=== PATIENT | female | born 1960 | race Caucasian/White ===

== ENCOUNTER → 2019-12-31 08:08 | Outpatient (BNVA) | payer MEDICARE, SELFPAY | PROVIDERS: Family Provider Family Medicine; PCP Family Medicine; Visit Provider Specialist | DX: G43.711 Chronic migraine without aura, intractable, with status migrainosus (principal); F32.9 Major depressive disorder, single episode, unspecified; I95.1 Orthostatic hypotension | CPT/HCPCS: 64615; J0585 ==

== ENCOUNTER → 2020-02-01 08:04 | Outpatient (BNVA) | payer MEDICARE, MEDICAID, SELFPAY | PROVIDERS: Family Provider Family Medicine; PCP Family Medicine; Visit Provider Psychiatry & Neurology Psychiatry | DX: F60.3 Borderline personality disorder (principal); F41.1 Generalized anxiety disorder; F43.12 Post-traumatic stress disorder, chronic; F33.42 Major depressive disorder, recurrent, in full remission; G31.84 Mild cognitive impairment of uncertain or unknown etiology | CPT/HCPCS: 99213 ==

== ENCOUNTER → 2020-02-16 08:19 | Outpatient (BNVA) | payer MEDICARE, SELFPAY | PROVIDERS: Family Provider Family Medicine; PCP Family Medicine; Visit Provider Anesthesiology | DX: M54.16 Radiculopathy, lumbar region (principal); M51.36 Other intervertebral disc degeneration, lumbar region; Z79.891 Long term (current) use of opiate analgesic | CPT/HCPCS: 99213; 99214 ==

== ENCOUNTER → 2020-03-31 09:08 | Outpatient (BNVA) | payer MEDICARE, SELFPAY | PROVIDERS: Family Provider Family Medicine; PCP Family Medicine; Visit Provider Specialist | DX: G43.711 Chronic migraine without aura, intractable, with status migrainosus (principal); F43.12 Post-traumatic stress disorder, chronic | CPT/HCPCS: 64615; J0585 ==

== ENCOUNTER → 2020-05-02 07:33 | Outpatient (BNVA) | payer MEDICARE, SELFPAY | PROVIDERS: Family Provider Family Medicine; PCP Family Medicine; Visit Provider Psychiatry & Neurology Psychiatry | DX: F60.3 Borderline personality disorder (principal); F41.1 Generalized anxiety disorder; F43.12 Post-traumatic stress disorder, chronic; G31.84 Mild cognitive impairment of uncertain or unknown etiology | CPT/HCPCS: 99213 ==

== ENCOUNTER → 2020-05-19 07:51 | Outpatient (BNVA) | payer MEDICARE, SELFPAY | PROVIDERS: Family Provider Family Medicine; PCP Family Medicine; Visit Provider Anesthesiology | DX: M51.36 Other intervertebral disc degeneration, lumbar region (principal); M54.16 Radiculopathy, lumbar region; M54.9 Dorsalgia, unspecified; Z79.891 Long term (current) use of opiate analgesic | CPT/HCPCS: 62323; J1040; J2001; J3490 ==

== ENCOUNTER → 2020-06-15 09:11 | Outpatient (BNVA) | payer MEDICARE, SELFPAY | PROVIDERS: Family Provider Family Medicine; PCP Family Medicine; Visit Provider Nurse Practitioner | DX: M51.36 Other intervertebral disc degeneration, lumbar region (principal); M54.16 Radiculopathy, lumbar region; M54.5 Low back pain; Z79.891 Long term (current) use of opiate analgesic | CPT/HCPCS: 99213 ==

== ENCOUNTER → 2020-06-23 08:51 | Outpatient (BNVA) | payer MEDICARE, SELFPAY | PROVIDERS: Family Provider Family Medicine; PCP Family Medicine; Visit Provider Specialist | DX: G43.711 Chronic migraine without aura, intractable, with status migrainosus (principal) | CPT/HCPCS: 64615; J0585 ==

== ENCOUNTER → 2020-07-21 08:43 | Outpatient (BNVA) | payer OTHER, SELFPAY | PROVIDERS: Family Provider Family Medicine; PCP Family Medicine; Visit Provider Psychiatry & Neurology Psychiatry | DX: F41.1 Generalized anxiety disorder (principal) | CPT/HCPCS: 80061; 83036 ==

== ENCOUNTER → 2020-08-01 07:39 | Outpatient (BNVA) | payer MEDICARE, MEDICAID, SELFPAY ==
[2020-07-25 09:50] VITALS: BP 101/66; BMI 32.7
== END ==
PROVIDERS: Family Provider Family Medicine; PCP Family Medicine; Visit Provider Psychiatry & Neurology Psychiatry
DX: F33.42 Major depressive disorder, recurrent, in full remission (principal); F43.12 Post-traumatic stress disorder, chronic; F41.1 Generalized anxiety disorder; F60.3 Borderline personality disorder
CPT/HCPCS: 99214

== ENCOUNTER → 2020-08-12 09:23 | Outpatient (BNVA) | payer MEDICARE, SELFPAY ==
[2020-07-25 09:50] VITALS: BP 101/66; BMI 32.7
== END ==
PROVIDERS: Family Provider Family Medicine; PCP Family Medicine; Visit Provider Nurse Practitioner
DX: M54.41 Lumbago with sciatica, right side (principal); M51.36 Other intervertebral disc degeneration, lumbar region; M54.16 Radiculopathy, lumbar region; Z79.891 Long term (current) use of opiate analgesic
CPT/HCPCS: 99213; 99214

== ENCOUNTER → 2020-08-25 10:22 | Outpatient (BNVA) | payer MEDICARE, SELFPAY ==
[2020-07-25 09:50] VITALS: BP 101/66; BMI 32.7
== END ==
PROVIDERS: Family Provider Family Medicine; PCP Family Medicine; Visit Provider Anesthesiology
DX: G89.29 Other chronic pain (principal); M51.36 Other intervertebral disc degeneration, lumbar region; M54.16 Radiculopathy, lumbar region; M54.9 Dorsalgia, unspecified
CPT/HCPCS: 62323; J1040; J3490

== ENCOUNTER → 2020-08-29 07:42 | Outpatient (BNVA) | payer MEDICARE, SELFPAY ==
[2020-07-25 09:50] VITALS: BP 101/66; BMI 32.7
== END ==
PROVIDERS: Family Provider Family Medicine; PCP Family Medicine; Visit Provider Psychiatry & Neurology Psychiatry
DX: F33.42 Major depressive disorder, recurrent, in full remission (principal); F43.12 Post-traumatic stress disorder, chronic; F41.1 Generalized anxiety disorder; F60.3 Borderline personality disorder; G31.84 Mild cognitive impairment of uncertain or unknown etiology
CPT/HCPCS: 99213

== ENCOUNTER → 2020-10-06 08:45 | Outpatient (BNVA) | payer MEDICARE, SELFPAY ==
[2020-07-25 09:50] VITALS: BP 101/66; BMI 32.7
== END ==
PROVIDERS: Family Provider Family Medicine; PCP Family Medicine; Visit Provider Anesthesiology
DX: M51.36 Other intervertebral disc degeneration, lumbar region (principal); M54.16 Radiculopathy, lumbar region; M54.9 Dorsalgia, unspecified; Z79.891 Long term (current) use of opiate analgesic
CPT/HCPCS: 99212; 99214

== ENCOUNTER → 2020-11-10 08:09 | Outpatient (BNVA) | payer MEDICARE, SELFPAY ==
[2020-07-25 09:50] VITALS: BP 101/66; BMI 32.7
== END ==
PROVIDERS: Family Provider Family Medicine; PCP Family Medicine; Visit Provider Specialist
DX: G43.711 Chronic migraine without aura, intractable, with status migrainosus (principal)
CPT/HCPCS: 64615; J0585

== ENCOUNTER → 2020-11-23 07:28 | Outpatient (BNVA) | payer MEDICARE, SELFPAY ==
[2020-07-25 09:50] VITALS: BP 101/66; BMI 32.7
== END ==
PROVIDERS: Family Provider Family Medicine; PCP Family Medicine; Visit Provider Psychiatry & Neurology Psychiatry
DX: F33.42 Major depressive disorder, recurrent, in full remission (principal); F43.12 Post-traumatic stress disorder, chronic; F41.1 Generalized anxiety disorder; F60.3 Borderline personality disorder; G31.84 Mild cognitive impairment of uncertain or unknown etiology
CPT/HCPCS: 99213

== ENCOUNTER → 2020-12-09 08:22 | Outpatient (BNVA) | payer MEDICARE, SELFPAY ==
[2020-07-25 09:50] VITALS: BP 101/66; BMI 32.7
== END ==
PROVIDERS: Family Provider Family Medicine; PCP Family Medicine; Visit Provider Nurse Practitioner
DX: M54.16 Radiculopathy, lumbar region (principal); M51.36 Other intervertebral disc degeneration, lumbar region; M54.9 Dorsalgia, unspecified; G43.711 Chronic migraine without aura, intractable, with status migrainosus; Z79.891 Long term (current) use of opiate analgesic; Z79.1 Long term (current) use of non-steroidal anti-inflammatories (NSAID)
CPT/HCPCS: 99215

== ENCOUNTER → 2021-01-05 10:43 | Outpatient (BNVA) | payer MEDICARE, SELFPAY ==
[2020-07-25 09:50] VITALS: BP 101/66; BMI 32.7
== END ==
PROVIDERS: Family Provider Family Medicine; PCP Family Medicine; Visit Provider Anesthesiology
DX: G89.29 Other chronic pain (principal); M51.36 Other intervertebral disc degeneration, lumbar region; M54.16 Radiculopathy, lumbar region; M54.9 Dorsalgia, unspecified; Z79.891 Long term (current) use of opiate analgesic
CPT/HCPCS: 62323; J1040; J3490

== ENCOUNTER → 2021-01-11 07:19 | Outpatient (BNVA) | payer MEDICARE, SELFPAY ==
[2020-07-25 09:50] VITALS: BP 101/66; BMI 32.7
== END ==
PROVIDERS: Family Provider Family Medicine; PCP Family Medicine; Visit Provider Psychiatry & Neurology Psychiatry
DX: F33.42 Major depressive disorder, recurrent, in full remission (principal); F43.12 Post-traumatic stress disorder, chronic; F41.1 Generalized anxiety disorder; F60.3 Borderline personality disorder; G31.84 Mild cognitive impairment of uncertain or unknown etiology
CPT/HCPCS: 99214

== ENCOUNTER → 2021-02-10 10:42 | Outpatient (BNVA) | payer MEDICARE, SELFPAY ==
[2020-07-25 09:50] VITALS: BP 101/66; BMI 32.7
== END ==
PROVIDERS: Family Provider Family Medicine; PCP Family Medicine; Visit Provider Nurse Practitioner
DX: M54.9 Dorsalgia, unspecified (principal); M51.36 Other intervertebral disc degeneration, lumbar region; M54.16 Radiculopathy, lumbar region; G43.711 Chronic migraine without aura, intractable, with status migrainosus; Z79.1 Long term (current) use of non-steroidal anti-inflammatories (NSAID); Z79.891 Long term (current) use of opiate analgesic
CPT/HCPCS: 99213

== ENCOUNTER → 2021-02-16 10:05 | Outpatient (BNVA) | payer MEDICARE, MEDICAID, SELFPAY ==
[2020-07-25 09:50] VITALS: BP 101/66; BMI 32.7
== END ==
PROVIDERS: Family Provider Family Medicine; PCP Family Medicine; Visit Provider Specialist
DX: G43.711 Chronic migraine without aura, intractable, with status migrainosus (principal)
CPT/HCPCS: 64615; J0585

== ENCOUNTER → 2021-03-08 07:20 | Outpatient (BNVA) | payer MEDICARE, SELFPAY ==
[2020-07-25 09:50] VITALS: BP 101/66; BMI 32.7
== END ==
PROVIDERS: Family Provider Family Medicine; PCP Family Medicine; Visit Provider Psychiatry & Neurology Psychiatry
DX: F33.42 Major depressive disorder, recurrent, in full remission (principal); F43.12 Post-traumatic stress disorder, chronic; F41.1 Generalized anxiety disorder; F60.3 Borderline personality disorder; G31.84 Mild cognitive impairment of uncertain or unknown etiology
CPT/HCPCS: 99214

== ENCOUNTER → 2021-04-06 10:29 | Outpatient (BNVA) | payer MEDICARE, SELFPAY ==
[2020-07-25 09:50] VITALS: BP 101/66; BMI 32.7
== END ==
PROVIDERS: Family Provider Family Medicine; PCP Family Medicine; Visit Provider Anesthesiology
DX: M54.16 Radiculopathy, lumbar region (principal); M51.36 Other intervertebral disc degeneration, lumbar region; M54.9 Dorsalgia, unspecified; Z79.891 Long term (current) use of opiate analgesic
CPT/HCPCS: 99213

== ENCOUNTER → 2021-05-11 11:09 | Outpatient (BNVA) | payer MEDICARE, MEDICAID, SELFPAY ==
[2021-04-06 11:20] VITALS: BP 101/66; BMI 32.7
== END ==
PROVIDERS: PCP Family Medicine; Visit Provider Specialist
DX: G43.709 Chronic migraine without aura, not intractable, without status migrainosus (principal)
CPT/HCPCS: 64615; J0585

== ENCOUNTER → 2021-05-26 09:11 | Outpatient (BNVA) | payer MEDICARE, SELFPAY ==
[2021-04-06 11:20] VITALS: BP 101/66; BMI 32.7
== END ==
PROVIDERS: PCP Family Medicine; Visit Provider Psychiatry & Neurology Psychiatry
DX: F33.42 Major depressive disorder, recurrent, in full remission (principal); F43.12 Post-traumatic stress disorder, chronic; F41.1 Generalized anxiety disorder; F60.3 Borderline personality disorder; G31.84 Mild cognitive impairment of uncertain or unknown etiology
CPT/HCPCS: 99214

== ENCOUNTER → 2021-06-13 10:15 | Outpatient (BNVA) | payer MEDICARE, SELFPAY ==
[2021-04-06 11:20] VITALS: BP 101/66; BMI 32.7
== END ==
PROVIDERS: PCP Family Medicine; Visit Provider Nurse Practitioner
DX: M25.532 Pain in left wrist (principal); M51.36 Other intervertebral disc degeneration, lumbar region; M54.16 Radiculopathy, lumbar region; M54.9 Dorsalgia, unspecified; G43.711 Chronic migraine without aura, intractable, with status migrainosus; G31.84 Mild cognitive impairment of uncertain or unknown etiology; Z79.1 Long term (current) use of non-steroidal anti-inflammatories (NSAID); Z79.891 Long term (current) use of opiate analgesic
CPT/HCPCS: 99213

== ENCOUNTER → 2021-06-29 07:39 | Outpatient (BNVA) | payer MEDICARE, SELFPAY ==
[2021-04-06 11:20] VITALS: BP 101/66; BMI 32.7
== END ==
PROVIDERS: PCP Family Medicine; Visit Provider Psychiatry & Neurology Psychiatry
DX: F60.3 Borderline personality disorder (principal); G31.84 Mild cognitive impairment of uncertain or unknown etiology; F41.1 Generalized anxiety disorder; F43.12 Post-traumatic stress disorder, chronic; F33.42 Major depressive disorder, recurrent, in full remission
CPT/HCPCS: 99214

== ENCOUNTER → 2021-07-28 07:22 | Outpatient (BNVA) | payer MEDICARE, SELFPAY ==
[2021-04-06 11:20] VITALS: BP 101/66; BMI 32.7
== END ==
PROVIDERS: PCP Family Medicine; Visit Provider Psychiatry & Neurology Psychiatry
DX: F33.42 Major depressive disorder, recurrent, in full remission (principal); F43.12 Post-traumatic stress disorder, chronic; F41.1 Generalized anxiety disorder; F60.3 Borderline personality disorder; G31.84 Mild cognitive impairment of uncertain or unknown etiology
CPT/HCPCS: 99214

== ENCOUNTER → 2021-08-03 12:07 | Outpatient (BNVA) | payer MEDICARE, MEDICAID, SELFPAY ==
[2021-04-06 11:20] VITALS: BP 101/66; BMI 32.7
== END ==
PROVIDERS: PCP Family Medicine; Visit Provider Specialist
DX: G43.709 Chronic migraine without aura, not intractable, without status migrainosus (principal)
CPT/HCPCS: 64615; J0585

== ENCOUNTER → 2021-08-09 10:17 | Outpatient (BNVA) | payer MEDICARE, SELFPAY ==
[2021-04-06 11:20] VITALS: BP 101/66; BMI 32.7
== END ==
PROVIDERS: PCP Family Medicine; Visit Provider Nurse Practitioner
DX: G89.29 Other chronic pain (principal); M54.16 Radiculopathy, lumbar region; M51.36 Other intervertebral disc degeneration, lumbar region; G43.711 Chronic migraine without aura, intractable, with status migrainosus; Z79.891 Long term (current) use of opiate analgesic
CPT/HCPCS: 99213

== ENCOUNTER → 2021-10-09 08:14 | Outpatient (BNVA) | payer MEDICARE, SELFPAY ==
[2021-04-06 11:20] VITALS: BP 101/66; BMI 32.7
== END ==
PROVIDERS: PCP Family Medicine; Visit Provider Psychiatry & Neurology Psychiatry
DX: F33.42 Major depressive disorder, recurrent, in full remission (principal); F43.12 Post-traumatic stress disorder, chronic; F41.1 Generalized anxiety disorder; F60.3 Borderline personality disorder; G31.84 Mild cognitive impairment of uncertain or unknown etiology
CPT/HCPCS: 99214

== ENCOUNTER → 2021-10-12 10:13 | Outpatient (BNVA) | payer MEDICARE, SELFPAY ==
[2021-04-06 11:20] VITALS: BP 101/66; BMI 32.7
== END ==
PROVIDERS: PCP Family Medicine; Visit Provider Anesthesiology
DX: M51.36 Other intervertebral disc degeneration, lumbar region (principal); M54.16 Radiculopathy, lumbar region; Z79.1 Long term (current) use of non-steroidal anti-inflammatories (NSAID); Z79.891 Long term (current) use of opiate analgesic; Z91.81 History of falling
CPT/HCPCS: 99213

== ENCOUNTER 2021-10-23 15:55 | Outpatient (CLI) | payer MEDICARE, SELFPAY ==
[2021-04-06 11:20] VITALS: BP 101/66; BMI 32.7
--- NOTE | 2021-10-23 16:02 | XR_ITS ---
WS: [id number] SCREENING DEXA SCAN WireOver CLINICAL INFORMATION: OSTEOPOROSIS COMPARISON: 2018 FINDINGS: The L1-L4 bone mineral density measures 0.711 g/cm2. This corresponds to a T score score of -3.9 and Z score of -3.0. Left femoral neck bone mineral density measures 0.586 g/cm2. This corresponds to a T score of -3.3 an d Z score of -2.6. Right femoral neck bone mineral density measures 0.645 g/cm2. This corresponds to a T score -2.9of an d Z score of -2.2. Mean femoral neck bone mineral density measures 0.616 g/cm2. This corresponds to a T score of -3.1 an d Z score of -2.4. XR/XR DEXA axial skeleton* [id number] IMPRESSION: Osteoporosis lumbar spine. Osteoporosis femoral necks. Patient's FRAX calculated 10 year probability for major osteoporotic fracture i s 27.8 % and osteoporotic hip fracture is 9.7%.
== END 2021-10-23 15:56 | disposition home or self-care (01) ==
PROVIDERS: PCP Family Medicine; Visit Provider Physician Assistant
DX: M81.0 Age-related osteoporosis without current pathological fracture (principal)
CPT/HCPCS: 77080

== ENCOUNTER → 2021-12-06 08:22 | Outpatient (BNVA) | payer MEDICARE, MEDICAID, SELFPAY ==
[2021-04-06 11:20] VITALS: BP 101/66; BMI 32.7
== END ==
PROVIDERS: PCP Family Medicine; Visit Provider Social Worker
DX: F43.12 Post-traumatic stress disorder, chronic (principal); Z63.4 Disappearance and death of family member
CPT/HCPCS: 90834

== ENCOUNTER → 2021-12-07 10:10 | Outpatient (BNVA) | payer MEDICARE, MEDICAID, SELFPAY ==
[2021-04-06 11:20] VITALS: BP 101/66; BMI 32.7
== END ==
PROVIDERS: PCP Family Medicine; Visit Provider Specialist
DX: G43.711 Chronic migraine without aura, intractable, with status migrainosus (principal)
CPT/HCPCS: 64615; J0585

== ENCOUNTER → 2021-12-13 09:24 | Outpatient (BNVA) | payer MEDICARE, SELFPAY ==
[2021-04-06 11:20] VITALS: BP 101/66; BMI 32.7
== END ==
PROVIDERS: PCP Family Medicine; Visit Provider Anesthesiology
DX: M54.16 Radiculopathy, lumbar region (principal); M51.36 Other intervertebral disc degeneration, lumbar region; Z79.891 Long term (current) use of opiate analgesic
CPT/HCPCS: 99213

== ENCOUNTER 2021-12-22 07:33 | Outpatient (CLI) | payer MEDICARE, MEDICAID, SELFPAY ==
[2021-04-06 11:20] VITALS: BP 101/66; BMI 32.7
[2021-12-22 07:59] VITALS: BMI 29.8
--- NOTE | 2021-12-22 07:59 | ECG_ITS ---
[facility] Test Date: 2021-12-22 Pat Name: Stefany Bassett Department: Room: Gender: Female Educational Coordinator: Veronica Rankin : 1960 Requested By: Laxmi Pack Order Number: [id number] Abdoul MD: Laxmi Pack M.D. Interpretive Statements NAME OF STUDY: LEXISCAN SESTAMIBI STRESS TEST INDICATION: Near syncope, NSVT PROCEDURE: At the baseline, the blood pressure was 105/78 mmHg, oxygen saturation 98% with a heart rate of 88 bpm. The electrocardiogram showed normal sinus rhythm, normal axis with poor anterior R wave progression. Low QRS voltage in precordial leads. The Lexiscan was infused over a period of 20 seconds. A total of 0.4 milligrams of Lexiscan was infused. The stress phase was continued for a total of 5 minutes. Heart rate at the end of the stress phase was 92 bpm, oxygen saturation 97% with a blood pressure 109/80 mmHg. The EKG at the peak infusion revealed sinus rhythm with no significant ST-T wave changes. Sestamibi was injected 20 seconds after the Lexiscan infusion. Blood pressure at the end of the recovery phase was 109/79 mmHg, oxygen saturation 98% with a heart rate of 94 beats per minute. CONCLUSION: 1. No significant EKG changes with the LexiScan infusion. 2. No LexiScan induced chest pain or cardiac arrhythmia. 3. Normal blood pressure and heart rate response. 4. Sestamibi/sestamibi perfusion scan pending; see separate report. Electronically Signed On 12-25-2021 18:54:32 WATER INSPECTOR by Laxmi Pack M.D. [id number]
--- NOTE | 2021-12-22 08:00 | NMCV_ITS ---
NM jevon perf SPECT r/s* [id number] Stefany Bassett Age: 61 Gender: F : 1960 Exam Date: 12/22/2021 08:49 Ordering Phys: Laxmi Pack MD ([email or web address]) Technologist: LANETTE Covington Exam Location: [facility] Indications: CHEST PAIN STRESS TEST Please see separate stress test report in [facility] for full findings IMAGE PROTOCOL Rest/Stress 1 Lexiscan Day Radiopharmaceutical Dose (mCi) Administration Site Administered by Rest: Tc-99m 10.7 IV LANETTE Victoria Sestamibi Stress:Tc-99m 32.6 IV LANETTE Victoria Sestamibi Rest: 22-Dec-2021 60 Discovery 630 Stress: 22-Dec-2021 30 Discovery 630 0.4mg Lexiscan. Images obtained in supine and prone position. SPECT RESULTS Technical Quality: Excellent Raw Data Analysis: Normal Image Corrections: No attenuation or motion correction applied Summed Stress Score: 0 Summed Rest Score: 0 Summed Difference Score: 0 PERFUSION FINDINGS SPECT images demonstrate homogeneous tracer distribution throughout the myocardium. FUNCTIONAL RESULTS (calculated via Gated SPECT) Stress Image LV EF (%): 78 Stress EDV (mL):88 TID: 1.19 Stress ESV (mL):19 FUNCTIONAL FINDINGS: The left ventricle is normal in size. Transient Ischemia Dilatation of 1.2. There is normal left ventricular systolic function. The left ventricular ejection fraction is normal with a value of 78%. There is normal left ventricular wall thickening with no regional wall motion abnormality. Normal end-diastolic end-systolic volumes. IMPRESSIONS 1. Myocardial perfusion imaging is normal. 2. Overall left ventricular systolic function is normal without regional wall motion abnormalities. 3. The left ventricular ejection fraction is normal with a value of 78%. 4. Transient ischemic dilation index of 1.2. This may represent hypertensive response/subendocardial ischemia. Clinical correlation is advised. 5. No significant EKG changes with Lexiscan infusion.. Refer to separate report for details. Laxmi Pack MD (Electronically Signed) Final Date: 25 December 2021 18:57 S
[2021-12-22 09:57] VITALS: BP 109/79; PULSE 93
[2021-12-22] MEDS: regadenoson 0.4 Mg/5 ml Syringe IVP (09:58)
== END 2021-12-22 07:34 | disposition home or self-care (01) ==
LOC: RAD 07:41 → CDL 07:47
PROVIDERS: PCP Family Medicine; Visit Provider Internal Medicine Cardiovascular Disease
DX: R55 Syncope and collapse (principal); R07.9 Chest pain, unspecified
CPT/HCPCS: 78452; 93017; A9500; J2785

== ENCOUNTER → 2021-12-26 10:45 | Outpatient (BNVA) | payer MEDICARE, MEDICAID, SELFPAY ==
[2021-04-06 11:20] VITALS: BP 101/66; BMI 32.7
== END ==
PROVIDERS: PCP Family Medicine; Visit Provider Social Worker
DX: F43.12 Post-traumatic stress disorder, chronic (principal); Z63.4 Disappearance and death of family member
CPT/HCPCS: 90837; 90834

== ENCOUNTER → 2022-01-12 07:48 | Outpatient (BNVA) | payer MEDICARE, MEDICAID, SELFPAY ==
[2021-04-06 11:20] VITALS: BP 101/66; BMI 32.7
== END ==
PROVIDERS: PCP Family Medicine; Visit Provider Psychiatry & Neurology Psychiatry
DX: F33.42 Major depressive disorder, recurrent, in full remission (principal); F43.12 Post-traumatic stress disorder, chronic; G31.84 Mild cognitive impairment of uncertain or unknown etiology; F60.3 Borderline personality disorder; F41.1 Generalized anxiety disorder
CPT/HCPCS: 99214

== ENCOUNTER 2022-02-08 08:15 | Emergency (ER) | payer MEDICARE, MEDICAID, SELFPAY ==
[2021-04-06 11:20] VITALS: BP 101/66; BMI 32.7
[2022-02-08 08:26] VITALS: BP 120/89; PULSE 84; RESP 18; TEMP 36.3; O2SAT 95; BMI 27.8
--- NOTE | 2022-02-08 08:37 | W.ED.SOB ---
HPI - SOB/Dyspnea General: Chief Complaint: Shortness of Breath/Dyspnea Stated Complaint: SOB Time Seen by Provider: 02/08/22 08:27 Source: patient Mode of arrival: ambulatory Limitations: no limitations History of Present Illness: HPI Narrative: 61-year-old female presents to the emergency room with complaint of shortness of breath with ambulation. She denies any chest pain she does get significantly short of breath with exertion. She states she is also fallen the last couple of days she did not hurt anything when she fell. No nausea or vomiting no fever sweats or chills no productive cough. She has had this problem ongoing and her notes from cardiology and they have her on midirone. Admit adjustments for medications in the past is a longstanding issue. MD elicited complaint: shortness of breath and cough Onset (ago): hour(s) Timing: constant Exacerbating factors: exertion Relieving factors: rest Associated symptoms: Deny abdominal pain, chest congestion, chest pain, cough, diaphoresis, dizziness, extremity pain, fever(s), hemoptysis, lightheadedness, myalgias, nausea, orthopnea, palpitations, paresthesias, polydipsia, polyuria, rash, sense of impending doom, syncope or vomiting Treatment prior to arrival: none Review of Systems Const: Denies: fever(s) or diaphoresis Card: Denies: chest pain, palpitations, lightheadedness, syncope or orthopnea Resp: Reports: dyspnea; Denies: hemoptysis or chest congestion GI: Denies: abdominal pain, nausea or vomiting Musc: Denies: extremity pain Neuro: Reports: frequent falls; Denies: dizziness Endo: Denies: polyuria or polydipsia PFS ED PFSH: Medical History Acute lumbar radiculopathy Borderline personality disorder Chronic lumbar radiculopathy Chronic migraine without aura, intractable, with status migrainosus DDD (degenerative disc disease), lumbar Encounter for long-term (current) use of NSAIDs Encounter for long-term opiate analgesic use Generalized anxiety disorder Major depression, recurrent, full remission Minor neurocognitive disorder Post-traumatic stress disorder, chronic Psychiatric care Surgical History History of 2 sections History of carpal tunnel surgery of left wrist Hx of appendectomy Hx of bilateral salpingectomy Hx of cholecystectomy Hx of colectomy bowel obstruction 11/2012 Hx of gastric bypass Hx of hernia repair Hx of hysterectomy Hx of knee surgery Right Hx of shoulder surgery Left Hx of tubal ligation Family History Other CAD (coronary artery disease) Cancer Diabetes Hyperlipidemia Hypertension Stroke Social History Smoking and tobacco status: never smoked Second hand smoke exposure: No Alcohol intake: never History of recent travel: No Current gender identity: Female Physical Exam Const: COMMON NORMALS: average body habitus, patient oriented x3 and alert GENERAL APPEARANCE: cooperative, comfortable, well kempt and well developed NUTRITIONAL APPEARANCE: obese ORIENTATION/CONSCIOUSNESS: Yes awake, Yes oriented to person and Yes oriented to place HENMT: COMMON NORMALS: normocephalic and atraumatic HEAD & SCALP: normocephalic and atraumatic MOUTH: Normal oral and palatal mucosa present, lip normal and tongue normal THROAT: posterior oropharynx normal and tonsils normal Eye: COMMON NORMALS: Equal, round and reactive pupils present, EOMs intact bilaterally, conjunctivae normal and no scleral icterus CONJUNCTIVA: Yes conjunctivae normal PUPIL: Yes Equal, round and reactive pupils present Neck/C-Spine: COMMON NORMALS: full ROM, no lymphadenopathy, supple, no meningeal signs and Thyroid normal THYROID: Thyroid normal and asymmetrical Resp: COMMON NORMALS: normal respiratory effort, No retractions, No use of accessory muscles and clear to auscultation bilaterally AUSCULTATION: clear to auscultation bilaterally Cardio: COMMON NORMALS: regular rate and regular rhythm RATE: regular rate RHYTHM: regular rhythm HEART SOUNDS: no murmurs GI: COMMON NORMALS: Normal to inspection, nondistended, normoactive bowel sounds present, Soft to palpation and No hepatosplenomegaly present PALPATION: Yes Soft to palpation and Yes No hepatosplenomegaly present : COMMON NORMALS: Yes no CVA tenderness BLADDER/KIDNEY EXAM: Yes no CVA tenderness Back/Pelvis: COMMON NORMALS: no CVA tenderness LUMBAR SPINE/LOWER BACK: Yes normal to inspection Extremity: COMMON NORMALS: no clubbing, cyanosis or edema, no calf tenderness and no pedal edema Neuro: COMMON NORMALS: patient oriented x3 SENSORIUM/ORIENTATION: Yes alert, Yes oriented to person and Yes oriented to place MENINGEAL SIGNS: Yes no meningeal signs Psych: APPEARANCE: Yes well kempt Skin: COMMON NORMALS: no rashes or lesions noted and turgor normal GENERAL SKIN EXAM: no rashes or lesions noted and turgor normal Course Vital Signs: Vital signs: Vital Signs Temperature 97.4 F L 02/08/22 08:26 Pulse Rate 76 02/08/22 13:42 Respiratory Rate 16 02/08/22 11:13 Blood Pressure 105/63 02/08/22 13:42 Pulse Oximetry 94 02/08/22 13:42 MDM - SOB/Dyspnea Medical Decision Making Potassium supplement given we will augment her oral potassium for the next few days. Medications reviewed. Asked her to increase her potassium to twice daily for the next 3 days recheck a potassium with her primary care doctor. Follow-up with cardiology for further evaluation. This is been a longstanding issue no indication that hospitalization would significantly improve her symptoms. Medical Records I reviewed the patient's medical records. Lab Data I reviewed the patient's lab results. : 02/08/22 09:55 02/08/22 09:55 Labs/Radiology: Radiology Impressions Chest X-Ray 02/08/22 08:40 IMPRESSION: Stable chest. No acute cardiopulmonary disease. Laboratory Results WBC 6.7 10^3/uL (4.0-10.0) 02/08/22 09:55 RBC 4.26 10^6/uL (4.1-5.3) 02/08/22 09:55 Hgb 14.2 g/dL (11.5-15.3) 02/08/22 09:55 Hct 42.1 % (37.0-47.0) 02/08/22 09:55 MCV 98.8 fl (81-99) 02/08/22 09:55 MCH 33.3 pg (28.0-34.0) 02/08/22 09:55 MCHC 33.7 g/dL (30.0-36.0) 02/08/22 09:55 RDW 13.7 % (12.1-15.1) 02/08/22 09:55 Plt Count 283 10^3/cmm (130-400) 02/08/22 09:55 MPV 10.6 fL (7.4-10.4) H 02/08/22 09:55 Neut % (Auto) 64.7 % 02/08/22 09:55 Lymph % (Auto) 24.9 % 02/08/22 09:55 Carroll % (Auto) 9.1 % 02/08/22 09:55 Eos % (Auto) 0.6 % 02/08/22 09:55 Baso % (Auto) 0.4 % 02/08/22 09:55 Neut # (Auto) 4.33 10^3/uL (1.8-7.7) 02/08/22 09:55 Lymph # (Auto) 1.7 10^3/uL (0.8-4.8) 02/08/22 09:55 Carroll # (Auto) 0.6 10^3/uL (0.2-0.9) 02/08/22 09:55 Eos # (Auto) 0.0 10^3/uL (0.0-0.8) 02/08/22 09:55 Baso # (Auto) 0.0 10^3/uL (0.0-0.1) 02/08/22 09:55 Nucleated RBC % (auto) 0 % 02/08/22 09:55 Nucleated RBCs # 0.0 /100WBC 02/08/22 09:55 Specimen Type Arterial 02/08/22 08:54 Sample Site Radial, left 02/08/22 08:54 ABG pH 7.47 (7.35-7.45) H 02/08/22 08:54 ABG pCO2 43.1 mmHg (35-45) 02/08/22 08:54 ABG pO2 64.6 mmHg (80.0-100.0) L 02/08/22 08:54 ABG HCO3 31.6 mmol/L (22-26) H 02/08/22 08:54 ABG O2 Saturation 92.4 02/08/22 08:54 ABG Base Excess 7.1 mmol/L (-2.0-2.0) H 02/08/22 08:54 Oliver Test Pos 02/08/22 08:54 A-a O2 Gradient 4.2 mmHg (5-10) L 02/08/22 08:54 Hematocrit 41.7 % (37-47) 02/08/22 08:54 Hgb O2 Saturation 91.5 % (95-100) L 02/08/22 08:54 Carboxyhemoglobin 0.1 %THgb (0.4-20.1) L 02/08/22 08:54 Methemoglobin 0.9 % (0.4-1.5) 02/08/22 08:54 Total Hemoglobin 13.6 g/dL (12-16) 02/08/22 08:54 Sodium 137.0 mmol/L (131-143) 02/08/22 08:54 Potassium 2.7 mmol/L (3.5-5.0) L 02/08/22 08:54 Glucose 115.0 mg/dL (70-115) 02/08/22 08:54 Ionized Calcium 1.1 mmol/L (1.1-1.4) 02/08/22 08:54 O2 Delivery Device Room air 02/08/22 08:54 FiO2 21.0 % 02/08/22 08:54 Dice Spotter ID Ed 02/08/22 08:54 Sodium 140 mmol/L (136-145) 02/08/22 09:55 Potassium 2.7 mmol/L (3.5-5.1) L* 02/08/22 09:55 Chloride 97 mmol/L (98-107) L 02/08/22 09:55 Carbon Dioxide 31 mmol/L (22-29) H 02/08/22 09:55 Anion Gap 14.7 (5-19) 02/08/22 09:55 BUN 10 mg/dL (8-23) 02/08/22 09:55 Creatinine 0.7 mg/dL (0.5-0.9) 02/08/22 09:55 GFR Calculation 85.1 mL/min (90-130) L 02/08/22 09:55 Glucose 115 mg/dL (65-115) 02/08/22 09:55 Calculated Osmolality 290 mOsm/kg (285-295) 02/08/22 09:55 Calcium 9.0 mg/dL (8.5-10.5) 02/08/22 09:55 Magnesium 2.3 mg/dL (1.7-2.3) 02/08/22 09:55 Total Bilirubin 0.4 mg/dL (0.15-1.2) 02/08/22 09:55 AST 53 U/L (0-32) H 02/08/22 09:55 ALT 32 U/L (0-33) 02/08/22 09:55 Alkaline Phosphatase 186 IU/L (35-105) H 02/08/22 09:55 Creatine Kinase 152 U/L (26-192) 02/08/22 09:55 Troponin T Baseline 27 ng/L (0-10) H 02/08/22 09:55 Troponin T 120 Minute 23.54 ng/L (0-10) H 02/08/22 11:52 Delta Troponin T -3.46 ABS# (0-10) L 02/08/22 11:52 Total Protein 5.6 g/dL (6.6-8.7) L 02/08/22 09:55 Albumin 2.8 g/dL (3.5-5.2) L 02/08/22 09:55 Globulin 2.8 g/dL (1.3-4.6) 02/08/22 09:55 Discharge Plan Discharge Patient Disposition: Home Clinical Impression: Orthostatic hypotension Condition: Stable Prescriptions: No Action zonisamide 25 mg capsule 50 mg PO DAILY 0RF aspirin [Adult Aspirin Regimen] 81 mg tablet,delayed release (DR/EC) 81 mg PO DAILY 0RF atorvastatin 10 mg tablet 10 mg PO DAILY 0RF All Day Allergy (cetirizine) 10 mg capsule 10 mg PO DAILY PRN (Reason: allergy symptoms) 0RF levothyroxine 150 mcg capsule 150 mcg PO DAILY 0RF prenat.vits,layo,prj-iife-bbdbg Tablet 1 tab PO DAILY 0RF potassium chloride 20 mEq tablet extended release 40 meq PO DAILY 0RF calcium carbonate [Calcium 600] 600 mg calcium (1,500 mg) tablet 600 mg PO DAILY 0RF cholecalciferol (vitamin D3) 125 mcg (5,000 unit) capsule 125 mcg PO DAILY 0RF mecobalamin (vitamin B12) 5,000 mcg lozenge 5,000 mcg PO DAILY 0RF Rx Instructions: allow to dissolve in mouth OR may chew lightly before swallowing alendronate [Fosamax] 70 mg tablet 70 mg PO .WEEK 0RF donepezil [Aricept] 10 mg tablet 10 mg PO .QHS Qty: 30 11RF buspirone 30 mg tablet 30 mg PO BID Qty: 120 11RF duloxetine [Cymbalta] 60 mg capsule,delayed release(DR/EC) 60 mg PO ONCE Qty: 30 11RF Rx Instructions: Take with 30mg capsule for total daily dose of 90mg daily. mirtazapine 15 mg tablet 15 mg PO DAILY Qty: 30 11RF duloxetine [Cymbalta] 30 mg capsule,delayed release(DR/EC) 30 mg PO DAILY Qty: 30 11RF Rx Instructions: Take with 60mg capsule for total daily daily dose of 90mg. midodrine 5 mg tablet 5 mg PO TID Qty: 90 3RF Rx Instructions: do not give last dose of day after 6PM or within 4 hrs of bedtime rizatriptan [Maxalt] 10 mg tablet 10 mg PO Q2H PRN (Reason: migraine headache) Qty: 9 3RF Rx Instructions: needs appointment for refills ondansetron HCl 4 mg tablet 40 mg PO TID 0RF hydrocodone-acetaminophen 7.5-325 mg tablet 1 tab PO TID PRN (Reason: pain) 0RF Rx Instructions: Fill on or after 12/21/21 hydrocodone-acetaminophen 7.5-325 mg tablet 1 tab PO TID PRN (Reason: pain) 0RF Rx Instructions: fill on or after 01/20/22 tizanidine 4 mg tablet 4 mg PO DAILY PRN (Reason: muscle spasticity) 0RF Rx Instructions: 1/2-1 TAB TID gabapentin 800 mg tablet 800 mg PO TID 0RF Discharge Orders: Discharge ED (Routine); Ordered 02/08/22 Ordered By: Ron Alexis Referrals: Steve Cuellar MD [Primary Care Provider] - Discharge Diet: Usual diet Discharge Activity: Limit activity as instructed Patient Instructions: Opioid Safety Activity Restrictions/Additional Instructions: Avoid exertional activities. Follow-up with cardiology. Coding Level of Care Code ED College Counselor for Alisha Santa
--- NOTE | 2022-02-08 08:40 | XR_ITS ---
WS: [id number] PORTABLE CHEST HISTORY: dyspnea/cough COMPARISON: 12/24/2016 Slight elevation of the RIGHT hemidiaphragm is stable. No pneumonia. Thin linear atelectasis in the l ower RIGHT lung. No pleural effusion or pneumothorax. Cardiac size: Normal. Mediastinum/Aorta: Normal mediastinum. Mild osteopenia. Single anchor in the LEFT humeral head. XR/XR chest 1V portable [id number] IMPRESSION: Stable chest. No acute cardiopulmonary disease.
--- NOTE | 2022-02-08 08:57 | PC.NURSE ---
Charge nurse informed that this nurse will not be able to accept care of this patient at this time due to rendering care to a more critical patient.
[2022-02-08 09:04] LABS: ABG PCO2 43.1 mmHg (35-45); ABG PH Result 7.47 (7.35-7.45); Alveolar-Arterial Oxygen Gradi 4.2 mmHg (5-10); Arterial Blood Gas Hematocrit 41.7 % (37-47); Base Excess ABG 7.1 mmol/L (-2.0-2.0); Blood Gas Allen Test Pos; Blood Gas Sample Type Arterial; Carboxyhemoglobin 0.1 %THgb (0.4-20.1); HCO3 ABG 31.6 mmol/L (22-26); HGB O2 Sat 91.5 % (95-100); Ionized Calcium Level - ABG 1.1 mmol/L (1.1-1.4); Methemoglobin 0.9 % (0.4-1.5); Oxygen Saturation ABG 92.4; PO2 ABG 64.6 mmHg (80.0-100.0); Potassium Level - ABG 2.7 mmol/L (3.5-5.0); Total Hemoglobin 13.6 g/dL (12-16)
[2022-02-08 09:05] LABS: Blood Gas Operator Identificat ED; Blood Gas Sample Site Radial, left; Oxygen Device ROOM AIR
[2022-02-08 10:06] LABS: Basophils % 0.4 %; Eosinophils % 0.6 %; Hematocrit 42.1 % (37.0-47.0); Hemoglobin 14.2 g/dL (11.5-15.3); Lymphocytes # 1.7 10^3/uL (0.8-4.8); Lymphocytes % 24.9 %; Mean Corpuscular HGB Conc 33.7 g/dL (30.0-36.0); Mean Corpuscular Hemoglobin 33.3 pg (28.0-34.0); Mean Corpuscular Volume 98.8 fl (81-99); Mean Platelet Volume 10.6 fL (7.4-10.4); Monocytes # 0.6 10^3/uL (0.2-0.9); Monocytes % 9.1 %; Neutrophils # 4.33 10^3/uL (1.8-7.7); Neutrophils % 64.7 %; Nucleated Red Blood Cells % 0 %; Platelet Count 283 10^3/cmm (130-400); Red Blood Count 4.26 10^6/uL (4.1-5.3); Red Cell Distribution Width 13.7 % (12.1-15.1); White Blood Count 6.7 10^3/uL (4.0-10.0)
[2022-02-08 10:41] LABS: Alanine Aminotransferase 32 U/L (0-33); Albumin Level 2.8 g/dL (3.5-5.2); Alkaline Phosphatase 186 IU/L (35-105); Anion Gap 14.7 (5-19); Aspartate Amino Transferase 53 U/L (0-32); Blood Urea Nitrogen 10 mg/dL (8-23); Carbon Dioxide 31 mmol/L (22-29); Chloride 97 mmol/L (98-107); Creatine Phosphokinase 152 U/L (26-192); Globulin 2.8 g/dL (1.3-4.6); Glomerular Filtration Rate 85.1 mL/min (90-130); Glucose 115 mg/dL (65-115); Osmolality Calculated 290 mOsm/kg (285-295); Sodium 140 mmol/L (136-145); Total Bilirubin 0.4 mg/dL (0.15-1.2); Total Protein 5.6 g/dL (6.6-8.7)
[2022-02-08 10:47] LABS: Potassium 2.7 mmol/L (3.5-5.1)
--- NOTE | 2022-02-08 11:08 | ECG_ITS ---
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 Measurements Intervals [place] Rate: 92 P: 38 OR: 129 QRS: 16 QRSD: 93 T: 35 QT: 390 QTc: 482 Interpretive Statements SINUS RHYTHM LOW QRS VOLTAGE IN PRECORDIAL LEADS [QRS DEFLECTION < 1.0 mV IN CHEST LEADS] Compared to ECG 07/16/2018 08:08:34 Low QRS voltage now present Atrial flutter no longer present Myocardial infarct finding no longer present Electronically Signed On 02-09-2022 5:59:37 CONTROL SYSTEMS DEVELOPER by Laxmi Pack M.D. [id number]
[2022-02-08] MEDS: potassium chloride oral liq 20 mEq/15 mL UDC 40 MEQ PO (11:11)
[2022-02-08 11:13] VITALS: PULSE 93; RESP 16; O2SAT 97
[2022-02-08 11:41] LABS: Magnesium 2.3 mg/dL (1.7-2.3)
[2022-02-08 11:59] LABS: Troponin(5th) Baseline 27 ng/L (0-10)
[2022-02-08 12:20] LABS: Troponin 5 2HR 23.54 ng/L (0-10)
[2022-02-08 12:22] LABS: Troponin 5 2HR Delta -3.46 ABS# (0-10)
[2022-02-08 12:33] VITALS: BP 106/65; BP 75/47; BP 92/67; PULSE 83; PULSE 87; PULSE 95
[2022-02-08 12:35] VITALS: BP 130/91; PULSE 85; O2SAT 99
[2022-02-08] MEDS: lactated ringers 1,000 ML 999 ML IV (12:39)
--- NOTE | 2022-02-08 13:08 | ECG_ITS ---
[facility] Test Date: 2022-02-08 Pat Name: Stefany Bassett Department: Room: Gender: Female Teller Vault: : 1960 Requested By: Ron Rojas Order Number: [id number] Reading MD: Laxmi Pack M.D. Measurements Intervals Ages [place] Rate: 79 P: 45 AL: 135 QRS: 8 QRSD: 95 T: 32 QT: 435 QTc: 500 Interpretive Statements SINUS RHYTHM LOW QRS VOLTAGE IN PRECORDIAL LEADS [QRS DEFLECTION < 1.0 mV IN CHEST LEADS] WARNING: DATA QUALITY MAY AFFECT INTERPRETATION Compared to ECG 02/08/2022 11:24:40 No significant changes Electronically Signed On 02-09-2022 6:07:17 SPECIAL WEAPONS UNIT OFFICER by Laxmi Pack M.D. [id number]
[2022-02-08 13:42] VITALS: BP 105/63; PULSE 76; O2SAT 94
== END 2022-02-08 13:46 | disposition home or self-care (01) ==
PROVIDERS: Emergency Provider Family Medicine; PCP Family Medicine
DX: I95.1 Orthostatic hypotension (principal); Z79.82 Long term (current) use of aspirin
CPT/HCPCS: 36600; 71045; 80051; 80053; 82330; 82550; 82805; 83735; 84484; 85025; 93005; 96360; 99284

== ENCOUNTER → 2022-02-16 09:53 | Outpatient (BNVA) | payer MEDICARE, SELFPAY ==
[2021-04-06 11:20] VITALS: BP 101/66; BMI 32.7
== END ==
PROVIDERS: PCP Family Medicine; Visit Provider Internal Medicine Cardiovascular Disease
DX: I95.1 Orthostatic hypotension (principal); F41.1 Generalized anxiety disorder; G43.711 Chronic migraine without aura, intractable, with status migrainosus
CPT/HCPCS: 99214

== ENCOUNTER 2022-02-22 08:17 | Outpatient (CLI) | payer MEDICARE, MEDICAID, SELFPAY ==
[2021-04-06 11:20] VITALS: BP 101/66; BMI 32.7
--- NOTE | 2022-02-22 08:24 | FL_ITS ---
WS: [id number] ESOPHAGRAM WITH FLUOROSCOPY HISTORY: DYSPHAGIA COMPARISON: None available. FLUOROSCOPY TIME: 2.2 minutes. Esophagus and swallowing function: Patient swallowed the barium mixture without difficulty. The esoph amanda is dilated and tortuous with marked tertiary contractions and dysmotility. There is marked delay ed clearing of barium from the entire esophagus. The harry are irregular suggesting diffuse esophagit is. No high-grade stricture. There is narrowing at the GE junction but it does distend with contrast. There is a large intermittently visualized hiatal hernia. No reflux is identified but there is delayed emptying of the esophagus. Numerous surgical sutures at the GE junction from prior gastric bypass surgery. FL/FL barium swallow [id number] IMPRESSION: 1. There is significant esophageal dysmotility with delayed emptying of the es ophagus and dilatation. 2. No high-grade stricture. 3. Mild diffuse esophagitis. 4. Large intermittently visualized hiatal hernia.
== END 2022-02-22 08:18 | disposition home or self-care (01) ==
LOC: RAD 08:17
PROVIDERS: PCP Family Medicine; Visit Provider Family Medicine
DX: R13.10 Dysphagia, unspecified (principal); K20.90 Esophagitis, unspecified without bleeding; K44.9 Diaphragmatic hernia without obstruction or gangrene
CPT/HCPCS: 74220

== ENCOUNTER 2022-03-05 06:00 | Outpatient (RCR) | payer MEDICARE, MEDICAID, SELFPAY ==
[2021-04-06 11:20] VITALS: BP 101/66; BMI 32.7
== END 2022-03-31 23:59 | disposition home or self-care (01) ==
LOC: SST 06:00
PROVIDERS: PCP Family Medicine; Referring Provider Family Medicine; Visit Provider Family Medicine
DX: K22.89 Other specified disease of esophagus (principal)
CPT/HCPCS: 92610

== ENCOUNTER → 2022-03-29 14:04 | Outpatient (BNVA) | payer MEDICARE, MEDICAID, SELFPAY ==
[2021-04-06 11:20] VITALS: BP 101/66; BMI 32.7
== END ==
PROVIDERS: PCP Family Medicine; Visit Provider Specialist
DX: G43.711 Chronic migraine without aura, intractable, with status migrainosus (principal)
CPT/HCPCS: 64615; J0585

== ENCOUNTER 2022-03-30 08:06 | Outpatient (CLI) | payer MEDICARE, MEDICAID, SELFPAY ==
[2021-04-06 11:20] VITALS: BP 101/66; BMI 32.7
--- NOTE | 2022-03-30 08:19 | CT_ITS ---
WS: [id number] CT ABDOMEN AND PELVIS WITH CONTRAST HISTORY: UNINTENTIONAL WEIGHT LOSS TECHNIQUE: Imaging performed of the abdomen and pelvis with IV contrast. Single phase imaging of the abdomen. Coronal and sagittal reformats are submitted. All CT scans at [facility] use at [facility] st one of these dose optimization techniques: automated exposure control; mA and/or kV adjustment per patient size (includes targeted exams where dose is matched to clinical indication); or iterative re construction. IV CONTRAST: Omnipaque 350; 95 mL IV. Oral contrast: Yes. DLP: 969.01 mGy.cm COMPARISON: 12/24/2016 Lower thorax: Lung bases are clear. Very small pleural thickening at the RIGHT lung base. Small hiat al hernia. Prior gastric bypass surgery. Liver/biliary system: Hepatic steatosis. No mass. Normal portal vein. Gallbladder: Status post cholecystectomy. Pancreas: Diffuse atrophy and fatty replacement of the pancreas. Spleen: Normal size spleen. No mass or infarct. Adrenal glands: Normal. Right kidney: Cortical hypodensities. Focal areas of scarring and cortical thinning. No mass or obstr uction. Left kidney: Mild cortical thinning and scarring. No mass or obstruction. Aorta: No aneurysm or significant atherosclerotic plaque. Normal enhancement of the proximal SMA and celiac axis. Lymphadenopathy: None. Free fluid: Very small amount of free fluid in the pelvis. GI tract: Minimally distended stomach with fluid. No small bowel obstruction. There is marked constip ation and fecal retention throughout the colon. Cecum is dilated and low lying. There is very mild wa ll thickening of the cecum. The appendix has been surgically removed. Very mild wall thickening invol ving the descending colon with numerous scattered diverticula. No focal obstructing lesion. Abdominal wall: Postsurgical changes along the anterior abdominal wall. There is diffuse soft tissue anasarca. Pelvis: Small amount of free fluid in the pelvis. Prior hysterectomy. No mass or adenopathy. Bones: Increase in the lumbar lordosis. New since 12/24/2016 are osteoporotic compression fractures at T12, L1 and L4. Very mild anterior wedging by approximately 20% involving each of these vertebral julia dies. CT/CT abdomen pelvis w con* [id number] IMPRESSION: 1. Small amount of free fluid in the pelvis of uncertain etiology. 2. Mild diffuse soft tissue anasarca. 3. Extensive diffuse constipation and tortuosity throughout the colon. There i s mild wall thickening at the cecum and ascending colon which may be due to mil d colitis and chronic changes of diverticulosis. No obstructing lesion identifi ed. Colonoscopy may be necessary to better evaluate the cecum due to the marked fecal retention and constipation. 4. No adenopathy. 5. Osteoporotic compression fractures at T12, L1 and L4. The L4 compression fr acture is new since 09/25/2021. 6. Prior gastric bypass surgery, cholecystectomy, appendectomy and hysterectom y.
[2022-03-30] MEDS: iohexol 300 mg/mL 50 mL Btl PO (09:27)
[2022-03-30] MEDS: iohexol 350 mg/mL 100 mL Btl IV (09:28)
== END 2022-03-30 08:07 | disposition home or self-care (01) ==
LOC: RAD 08:08
PROVIDERS: PCP Family Medicine; Visit Provider Family Medicine
DX: R63.4 Abnormal weight loss (principal)
CPT/HCPCS: 74177

== ENCOUNTER 2022-04-01 06:00 | Outpatient (RCR) | payer MEDICARE, MEDICAID, SELFPAY ==
[2021-04-06 11:20] VITALS: BP 101/66; BMI 32.7
== END 2022-05-01 23:59 | disposition home or self-care (01) ==
LOC: SST 06:00
PROVIDERS: PCP Family Medicine; Referring Provider Family Medicine; Visit Provider Family Medicine
DX: K22.4 Dyskinesia of esophagus (principal)
CPT/HCPCS: 92526

== ENCOUNTER 2022-04-04 09:51 | Outpatient (CLI) | payer MEDICARE, MEDICAID, SELFPAY ==
[2021-04-06 11:20] VITALS: BP 101/66; BMI 32.7
--- NOTE | 2022-04-04 10:05 | FL_ITS ---
WS: [id number] MODIFIED BARIUM SWALLOW TECHNIQUE: Modified barium swallow with speech therapy using multiple consistencies. FLUOROSCOPY TIME: 1.8 # of spot films: 1 CLINICAL INFORMATION: Pharyngeal dysphagia COMPARISON February 22, 2022 FINDINGS: Multiple consistencies utilized. Normal oropharyngeal phase. No difficulties with barium tablet. Pen etration with all consistencies. No burke aspiration. Moderate esophageal dysmotility. No high-grade stricture. FL/FL barium swallow modifd [id number] IMPRESSION: 1. Penetration with multiple consistencies. No burke aspiration. 2. No difficulties with barium tablet. 3. Moderate esophageal dysmotility. No high-grade stricture. 4. Previously described large hiatal hernia not visualized on the study today. Prior gastric bypass.
== END 2022-04-04 09:52 | disposition home or self-care (01) ==
LOC: RAD 10:00
PROVIDERS: PCP Family Medicine; Visit Provider Family Medicine
DX: R13.13 Dysphagia, pharyngeal phase (principal)
CPT/HCPCS: 74230; 92611

== ENCOUNTER → 2022-04-17 07:06 | Outpatient (BNVA) | payer MEDICARE, MEDICAID, SELFPAY ==
[2021-04-06 11:20] VITALS: BP 101/66; BMI 32.7
== END ==
PROVIDERS: PCP Family Medicine; Visit Provider Psychiatry & Neurology Psychiatry
DX: F33.42 Major depressive disorder, recurrent, in full remission (principal); F43.12 Post-traumatic stress disorder, chronic; F41.1 Generalized anxiety disorder; F60.3 Borderline personality disorder; G31.84 Mild cognitive impairment of uncertain or unknown etiology
CPT/HCPCS: 99214

== ENCOUNTER → 2022-04-23 11:15 | Outpatient (BNVA) | payer MEDICARE, MEDICAID, SELFPAY ==
[2021-04-06 11:20] VITALS: BP 101/66; BMI 32.7
== END ==
PROVIDERS: PCP Family Medicine; Visit Provider Surgery
DX: Z98.84 Bariatric surgery status (principal); E88.81 Metabolic syndrome and other insulin resistance; R13.10 Dysphagia, unspecified; R29.6 Repeated falls; K82.9 Disease of gallbladder, unspecified
CPT/HCPCS: 36415; 80053; 82306; 82310; 82607; 82728; 82746; 83540; 83550; 83690; 83735; 83970; 84425; 84443; 84630; 85025; 99203

== ENCOUNTER 2022-04-26 07:44 | Day surgery (SDC) | payer MEDICARE, MEDICAID, SELFPAY ==
[2021-04-06 11:20] VITALS: BP 101/66; BMI 32.7
[2022-04-25 09:44] VITALS: BMI 25.6
--- NOTE | 2022-04-26 08:07 | W.PM.OPSUD ---
Surgery/Procedure H&P Update DATE OF PROCEDURE: April 26, 2022 DATE H&P PERFORMED: 04/23/22 H&P UPDATE INFORMATION: I have reviewed H&P completed within last 30 days, I have examined patient prior to procedure and No changes to prior documentation PRIMARY INDICATION FOR PROCEDURE: The same PLANNED PROCEDURE: Operation Date: 04/26/22 09:15 Proposed Procedures p EGD 06145,R10.13(Not Applicable) - Daniele Ortiz MD
[2022-04-26 08:25] VITALS: BP 121/85; PULSE 132; RESP 18; TEMP 36.5; O2SAT 97
[2022-04-26] MEDS: sodium chloride 0.9% 1,000 ML 30 ML IV (08:25)
--- NOTE | 2022-04-26 09:20 | ANES.PREANE2 ---
Pre-Anesthetic Assessment Height/Weight: Height 1.57 m Weight 63.503 kg Temp Pulse Resp BP Pulse Ox 97.7 F 132 H 18 121/85 97 04/26/22 08:25 04/26/22 08:25 04/26/22 08:25 04/26/22 08:25 04/26/22 08:25 Operation Date: 04/26/22 09:15 Proposed Procedures p EGD 17906,R10.13(Not Applicable) - Daniele Ortiz MD Familial anesthetic complications: None Was Beta Buddy taken within 24 hours: N/A Was Clonidine taken within 24 hours: N/A Last intake: Intake Last Liquid Date 04/25/22 Last Liquid Time 22:00 Last Solid Date 04/25/22 Last Solid Time 19:00 Social No alcohol and No tobacco Exam alert, oriented x 3, clear to auscultation bilaterally and regular rate & rhythm tachycardia Airway Mallampati: Class II Dentition: full Pulmonary None reported CV/HEM None reported orthostatic hypotension None reported Hepatic None reported GI Gastroesophageal Reflux Disease hx gastric bypass Metabolic Thyroid Disease [facility] None reported Neuropsych None reported Anesthetic Plan ASA status: 3 Anesthesia: MAC Risk of > 500 ml blood loss (7ml/kg in children): No Medications/Allergies Home Medications Medication Instructions Recorded Confirmed Last Taken Type zonisamide 25 mg capsule 50 mg PO DAILY cap 02/01/20 04/26/22 04/25/22 History aspirin 81 mg tablet,delayed 81 mg PO DAILY tab 11/22/20 04/26/22 04/25/22 History release (Adult Aspirin Regimen) atorvastatin 10 mg tablet 10 mg PO DAILY tab 11/22/20 04/26/22 04/25/22 History cetirizine 10 mg capsule (All Day 10 mg PO DAILY PRN cap 11/22/20 04/26/22 04/25/22 History Allergy (cetirizine)) levothyroxine 150 mcg capsule 150 mcg PO DAILY cap 11/22/20 04/26/22 04/25/22 History prenat.vits,layo,qcp-ejrf-dzcvg 1 tab PO DAILY tab 11/22/20 04/26/22 04/25/22 History calcium carbonate 600 mg calcium 600 mg PO DAILY tab 06/13/21 04/26/22 04/25/22 History (1,500 mg) tablet (Calcium) cholecalciferol (vitamin D3) 125 125 mcg PO DAILY 06/13/21 04/26/22 04/25/22 History mcg (5,000 unit) capsule mecobalamin (vitamin B12) 5,000 5,000 mcg PO DAILY 06/13/21 04/26/22 04/25/22 History mcg lozenge buspirone 30 mg tablet 30 mg PO BID #120 tab 10/09/21 04/26/22 04/25/22 Rx donepezil 10 mg tablet (Aricept) 10 mg PO .QHS #30 tab 10/09/21 04/26/22 04/25/22 Rx mirtazapine 15 mg tablet 15 mg PO DAILY #30 tab 10/09/21 04/26/22 04/25/22 Rx rizatriptan 10 mg tablet (Maxalt) 10 mg PO Q2H PRN #9 tab 11/30/21 04/26/22 04/25/22 Rx alendronate 70 mg tablet (Fosamax) 70 mg PO .WEEK tab 12/13/21 04/26/22 04/25/22 History gabapentin 800 mg tablet 800 mg PO TID 02/08/22 04/26/22 04/25/22 History hydrocodone 7.5 mg-acetaminophen 1 tab PO TID PRN 02/08/22 04/26/22 04/25/22 History 325 mg tablet tizanidine 4 mg tablet 4 mg PO DAILY PRN 02/08/22 04/26/22 04/25/22 History fludrocortisone 0.1 mg tablet 0.1 mg PO BID #60 tab 02/16/22 04/26/22 04/25/22 Rx midodrine 10 mg tablet 10 mg PO TID #90 tab 02/16/22 04/26/22 04/25/22 Rx ondansetron HCl 4 mg tablet 4 mg PO TID tab 02/16/22 04/26/22 04/25/22 History potassium chloride 20 mEq 40 meq PO BID #120 tab 02/16/22 04/26/22 04/25/22 Rx tablet,extended release mupirocin 2 % topical ointment 1 applic TOPICAL BID #22 g 03/05/22 04/26/22 04/25/22 Rx cephalexin 500 mg capsule 500 mg PO BID #14 cap 04/03/22 04/26/22 04/25/22 Rx hydrocodone 5 mg-acetaminophen 325 1 tab PO Q6H PRN 3 Days #7 tab 04/03/22 04/26/22 04/25/22 Rx mg tablet duloxetine 60 mg capsule,delayed 60 mg PO DAILY #30 cap 04/17/22 04/26/22 04/25/22 Rx release (Cymbalta) Allergies Allergy/AdvReac Type Severity Reaction Status Date / Time lithium Allergy Intermediate NAUSEA AND Verified 04/26/22 08:13 VOMITING adhesive tape AdvReac Intermediate ALGY-Rash Verified 04/26/22 08:13 Current Medications Generic Name Dose Route Start Last Admin Trade Name Freq PRN Reason Stop Dose Admin Sodium Chloride 1,000 mls @ 30 mls/hr 04/26/22 08:30 04/26/22 08:25 Sodium Chloride 0.9% IV 04/27/22 08:29 30 mls/hr .Q24H PRINCE Administration PFSH Anesthesia Medical History Acute lumbar radiculopathy Borderline personality disorder Chronic lumbar radiculopathy Chronic migraine without aura, intractable, with status migrainosus DDD (degenerative disc disease), lumbar Encounter for long-term (current) use of NSAIDs Encounter for long-term opiate analgesic use Generalized anxiety disorder Major depression, recurrent, full remission Minor neurocognitive disorder Post-traumatic stress disorder, chronic Psychiatric care Surgical History History of 2 sections History of carpal tunnel surgery of left wrist Hx of appendectomy Hx of bilateral salpingectomy Hx of cholecystectomy Hx of colectomy bowel obstruction 11/2012 Hx of gastric bypass Hx of hernia repair Hx of hysterectomy Hx of knee surgery Right Hx of shoulder surgery Left Hx of tubal ligation Family History Other CAD (coronary artery disease) Cancer Diabetes Hyperlipidemia Hypertension Stroke Social History Smoking and tobacco status: never smoked Second hand smoke exposure: No Alcohol intake: never History of recent travel: No Current gender identity: Female Data Anesthesia Cardiac Studies: Sestamibi Stress Test (Cardiology) 12/22/21
[2022-04-26 10:12] VITALS: BP 92/63; PULSE 90; RESP 16; TEMP 36.3; O2SAT 100
[2022-04-26 10:27] VITALS: BP 104/70; PULSE 89; RESP 18; O2SAT 99
--- NOTE | 2022-04-26 12:54 | PC.NURSE ---
Pharmacy called due to discharge plan showing new prescribed medications were pending. Pharmacy reported they received prescriptions for the 2 new medications and that the patient has already picked the medication up.
--- NOTE | 2022-04-26 14:26 | ANE.PACU2 ---
Inpatient post-anesthesia follow up: Airway intact: Yes Vital signs: Temperature 97.4 F Pulse Rate 89 Respiratory Rate 18 Blood Pressure 104/70 Pulse Oximetry 99 Oxygen Delivery Me thod Room Air Oxygen Flow Rate Fraction of Inspir ed Oxygen Hydration adequate: Yes Nausea and vomiting: No Pain level: 1 Mental status: Baseline
== END 2022-04-26 10:30 | disposition home or self-care (01) ==
PROVIDERS: PCP Family Medicine; Visit Provider Surgery
PROC: 0DJ08ZZ Inspection of Upper Intestinal Tract, Via Natural or Artificial Opening Endoscopic (ICD-10-PCS; CPT 43235; principal; 2022-04-26 09:15)
DX: R10.13 Epigastric pain (principal); K21.9 Gastro-esophageal reflux disease without esophagitis; Z98.84 Bariatric surgery status
CPT/HCPCS: 43235; J7030

== ENCOUNTER 2022-05-02 | Outpatient (RCR) | payer MEDICARE, OTHER, SELFPAY ==
[2021-04-06 11:20] VITALS: BP 101/66; BMI 32.7
== END 2022-05-02 23:59 | disposition home or self-care (01) ==
LOC: SST
PROVIDERS: PCP Family Medicine; Referring Provider Family Medicine; Visit Provider Family Medicine
DX: K22.4 Dyskinesia of esophagus (principal); R13.13 Dysphagia, pharyngeal phase; F33.42 Major depressive disorder, recurrent, in full remission; F60.3 Borderline personality disorder; F41.1 Generalized anxiety disorder; F43.12 Post-traumatic stress disorder, chronic
CPT/HCPCS: 99214

== ENCOUNTER 2022-05-08 17:06 | Emergency (ER) | payer MEDICARE, MEDICAID, SELFPAY ==
[2021-04-06 11:20] VITALS: BP 101/66; BMI 32.7
[2022-05-08 17:26] VITALS: BP 91/67; PULSE 68; RESP 16; TEMP 35.8; O2SAT 98; BMI 25.6
--- NOTE | 2022-05-08 18:11 | W.ED.WEAKNES ---
HPI - Weakness General: Chief complaint: Weakness Stated complaint: nausea, vomiting, unable to void, dizziness, fall Time Seen by Provider: 05/08/22 18:03 PFSH ED PFSH: Medical History (Updated 05/02/22 @ 09:51 by Corona Bennett DO) Acute lumbar radiculopathy Borderline personality disorder Chronic lumbar radiculopathy Chronic migraine without aura, intractable, with status migrainosus DDD (degenerative disc disease), lumbar Encounter for long-term (current) use of NSAIDs Encounter for long-term opiate analgesic use Generalized anxiety disorder Major depression, recurrent, full remission Minor neurocognitive disorder Post-traumatic stress disorder, chronic Surgical History History of 2 sections History of carpal tunnel surgery of left wrist Hx of appendectomy Hx of bilateral salpingectomy Hx of cholecystectomy Hx of colectomy bowel obstruction 11/2012 Hx of gastric bypass Hx of hernia repair Hx of hysterectomy Hx of knee surgery Right Hx of shoulder surgery Left Hx of tubal ligation Family History Other CAD (coronary artery disease) Cancer Diabetes Hyperlipidemia Hypertension Stroke Social History Smoking and tobacco status: never smoked Second hand smoke exposure: No Alcohol intake: never History of recent travel: No Current gender identity: Female Course Vital Signs: Vital signs: Vital Signs Temperature 96.4 F L 05/08/22 17:26 Pulse Rate 68 05/08/22 17:26 Respiratory Rate 16 05/08/22 17:26 Blood Pressure 91/67 05/08/22 17:26 Pulse Oximetry 98 05/08/22 17:26 Discharge Plan Discharge Condition: Stable Prescriptions: No Action zonisamide 25 mg capsule 50 mg PO DAILY 0RF atorvastatin 10 mg tablet 10 mg PO DAILY 0RF All Day Allergy (cetirizine) 10 mg capsule 10 mg PO DAILY PRN (Reason: allergy symptoms) 0RF levothyroxine 150 mcg capsule 150 mcg PO DAILY 0RF prenat.vits,layo,ybw-adhg-ptjkg Tablet 1 tab PO DAILY 0RF calcium carbonate [Calcium 600] 600 mg calcium (1,500 mg) tablet 600 mg PO DAILY 0RF cholecalciferol (vitamin D3) 125 mcg (5,000 unit) capsule 125 mcg PO DAILY 0RF mecobalamin (vitamin B12) 5,000 mcg lozenge 5,000 mcg PO DAILY 0RF Rx Instructions: allow to dissolve in mouth OR may chew lightly before swallowing alendronate [Fosamax] 70 mg tablet 70 mg PO .WEEK 0RF donepezil [Aricept] 10 mg tablet 10 mg PO .QHS Qty: 30 11RF buspirone 30 mg tablet 30 mg PO BID Qty: 120 11RF mirtazapine 15 mg tablet 15 mg PO DAILY Qty: 30 11RF midodrine 10 mg tablet 10 mg PO TID Qty: 90 6RF Rx Instructions: do not give last dose of day after 6PM or within 4 hrs of bedtime potassium chloride 20 mEq tablet extended release 40 meq PO BID Qty: 120 6RF fludrocortisone 0.1 mg tablet 0.1 mg PO BID Qty: 60 6RF hydrocodone-acetaminophen 5-325 mg tablet 1 tab PO Q6H PRN (Reason: pain) 3 Days Qty: 7 0RF cephalexin 500 mg capsule 500 mg PO BID Qty: 14 0RF duloxetine [Cymbalta] 60 mg capsule,delayed release(DR/EC) 60 mg PO DAILY Qty: 30 5RF rizatriptan [Maxalt] 10 mg tablet 10 mg PO Q2H PRN (Reason: migraine headache) Qty: 9 3RF Rx Instructions: needs appointment for refills mupirocin 2 % ointment 1 applic topical BID Qty: 22 1RF Rx Instructions: Apply to affected areas until healed hydrocodone-acetaminophen 7.5-325 mg tablet 1 tab PO TID PRN (Reason: pain) 0RF Rx Instructions: fill on or after 01/20/22 tizanidine 4 mg tablet 4 mg PO DAILY PRN (Reason: muscle spasticity) 0RF Rx Instructions: 1/2-1 TAB TID gabapentin 800 mg tablet 800 mg PO TID 0RF ondansetron HCl 4 mg tablet 4 mg PO TID 0RF Protonix 40 mg tablet,delayed release (DR/EC) 40 mg PO DAILY 30 Days Qty: 30 3RF Carafate 1 gram tablet 1 g PO Q6H PRN (Reason: Gastrojejunostomy marginal ulcers) 84 Days Qty: 336 2RF Referrals: Steve Cuellar MD [Primary Care Provider] - Coding Level of Care Code ED Osteopathic Neurologist for Chg Kiet
--- NOTE | 2022-05-08 18:13 | W.ED.GENADLT ---
HPI - General Adult General: Chief complaint: Weakness Stated complaint: nausea, vomiting, unable to void, dizziness, fall Time Seen by Provider: 05/08/22 18:03 History of Present Illness: Patient is a 62-year-old female with a history of prior cholecystectomy, appendectomy, bowel obstruction, , gastric bypass who recently underwent EGD study with Dr. Ortiz on 04/26/2022 presenting to the emergency room for evaluation of generalized weakness, decreased p.o. intake diarrhea and fatigue since the procedure. Patient tells me that in the last few days since his discharge from the hospital, she has had increasing diarrhea. Patient denies any antibiotic use. Patient tells me that since for the last 2 days, she has been unable to get out of bed due to fatigue. In addition, patient is able to hold down liquids however has had decreased appetite. Patient tells me that she has had about 45 pounds of weight loss in the last few month. In addition, patient denies any focal abdominal pain, fever/chills, chest pain, shortness breath palpitation or cough. Patient denies any blood in the stool or dark stool. Patient tells me that for the last day or so she has not been able to urinate. Yesterday her urine appears to be dark. Patient denies any dysuria or polyuria or hematuria in the last few days. Because of ongoing fatigue and diarrhea, patient came to the emergency room for further evaluation. Onset: 4 days ago Duration:4 days Location:home Severity:moderate Associated symptoms: Reports malaise and nausea; Deny chest pain, dyspnea, rash, palpitations or vomiting Review of Systems Const: Reports: fatigue and malaise; Denies: fever(s) or chills Eyes: Denies: change in vision ENMT: Denies: mouth pain Card: Denies: chest pain or palpitations Resp: Denies: dyspnea or non-productive cough GI: Reports: nausea, diarrhea and other (+decreased po intake); Denies: abdominal pain or vomiting : Denies: dysuria Musc: Denies: extremity pain Skin/Breast: Denies: rash or new lesions Neuro: Denies: weakness in extremities Psych: Reports: other (Normal mood) Louis/Lymph: Denies: easy bruising PFS ED PFSH: Medical History Acute lumbar radiculopathy Borderline personality disorder Chronic lumbar radiculopathy Chronic migraine without aura, intractable, with status migrainosus DDD (degenerative disc disease), lumbar Encounter for long-term (current) use of NSAIDs Encounter for long-term opiate analgesic use Generalized anxiety disorder Major depression, recurrent, full remission Minor neurocognitive disorder Post-traumatic stress disorder, chronic Surgical History History of 2 sections History of carpal tunnel surgery of left wrist Hx of appendectomy Hx of bilateral salpingectomy Hx of cholecystectomy Hx of colectomy bowel obstruction 11/2012 Hx of gastric bypass Hx of hernia repair Hx of hysterectomy Hx of knee surgery Right Hx of shoulder surgery Left Hx of tubal ligation Family History Other CAD (coronary artery disease) Cancer Diabetes Hyperlipidemia Hypertension Stroke Social History Smoking and tobacco status: never smoked Second hand smoke exposure: No Alcohol intake: never History of recent travel: No Current gender identity: Female Physical Exam Const: COMMON NORMALS: alert HENMT: COMMON NORMALS: atraumatic HEAD & SCALP: atraumatic MOUTH: moist mucous membranes abnormal Eye: COMMON NORMALS: EOMs intact bilaterally and conjunctivae normal CONJUNCTIVA: Yes conjunctivae normal Neck/C-Spine: COMMON NORMALS: full ROM and supple Resp: COMMON NORMALS: normal respiratory effort and clear to auscultation bilaterally AUSCULTATION: clear to auscultation bilaterally Cardio: COMMON NORMALS: regular rate RATE: regular rate GI: COMMON NORMALS: Soft to palpation and non-tender PALPATION: Yes Soft to palpation OTHER: No focal TTP. NO guarding rebound, guarding, rigidity. No CVA tenderness to percussion. Neg Barclay/Neg McBurney's point tenderness, no suprabupic tenderness to palpation. Extremity: COMMON NORMALS: full ROM Neuro: SENSORIUM/ORIENTATION: Yes alert MOTOR EXAM: No Abnormal motor strength present and Other motor observations present (no focal motor deficits) Psych: COMMON NORMALS: speech normal SPEECH: Yes normal speech MOOD & AFFECT: Yes euthymic mood Course Vital Signs: Vital signs: Vital Signs Temperature 97.9 F 05/08/22 18:24 Pulse Rate 65 06/07/22 22:57 Respiratory Rate 18 05/08/22 22:57 Blood Pressure 97/67 05/08/22 22:57 Pulse Oximetry 100 05/08/22 22:57 [facility] - General Adult Medical Decision Making 62-year-old female with a history of EGD finding of peptic ulcers, prior , bowel obstruction, appendectomy, cholecystectomy presenting to emergency room with decreased appetite, generalized weakness, diarrhea for the last 4 days. On physical exam, patient appears to have dry mucous membrane. No focal abdominal tenderness. No guarding or rebound tenderness. Patient is hemodynamically stable. Work-up today showed white count 8.2. Patient is hemoconcentrated 16.3. Potassium of 2.6. Patient has a known history of hypokalemia. S/p KCL repletion in the ED. Rx tylenol PRN abd pain, maalox/pepcid PRN dyspepsia, and zofran PRN nausea/vomiting, KCL for potassium repletion, protonix for peptic ulcer Disposition: Discharge. Patient counseled regarding diagnostic impression, treatment plan. Patient given ED strict return precautions to return for continuation, worsening, or development of new symptoms. Instructed to f/u w/ PCP regarding symptoms today. Patient verbalized understanding. Lab Data : 05/08/22 18:30 05/08/22 18:30 Laboratory Results WBC 8.2 10^3/uL (4.0-10.0) 05/08/22 18:30 RBC 4.78 10^6/uL (4.1-5.3) 05/08/22 18:30 Hgb 16.3 g/dL (11.5-15.3) H 05/08/22 18:30 Hct 49.8 % (37.0-47.0) H 05/08/22 18:30 MCV 104.2 fl (81-99) H 05/08/22 18:30 MCH 34.1 pg (28.0-34.0) H 05/08/22 18: MCHC 32.7 g/dL (30.0-36.0) 05/08/22 18:30 RDW 14.6 % (12.1-15.1) 05/08/22 18:30 Plt Count 439 10^3/cmm (130-400) H 05/08/22 18:30 MPV 11.4 fL (7.4-10.4) H 05/08/22 18:30 Neut % (Auto) 41.3 % 05/08/22 18: Lymph % (Auto) 50.4 % 05/08/22 18:30 [place]ney % (Auto) 6.7 % 05/08/22 18:30 Eos % (Auto) 0.4 % 05/08/22 18:30 Baso % (Auto) 0.7 % 05/08/22 18:30 Neut # (Auto) 3.38 10^3/uL (1.8-7.7) 05/08/22 18: Lymph # (Auto) 4.1 10^3/uL (0.8-4.8) 05/08/22 18: [place] # (Auto) 0.6 10^3/uL (0.2-0.9) 05/08/22 18:30 Eos # (Auto) 0.0 10^3/uL (0.0-0.8) 05/08/22 18: Baso # (Auto) 0.1 10^3/uL (0.0-0.1) 05/08/22 18: Nucleated RBC % (auto) 0 % 05/08/22 18: Nucleated RBCs # 0.0 /100WBC 05/08/22 18: Sodium 140 mmol/L (136-145) 05/08/22 18:30 Potassium 2.6 mmol/L (3.5-5.1) L* 05/08/22 18: Chloride 100 mmol/L (98-107) 05/08/22 18: Carbon Dioxide 26 mmol/L (22-29) 05/08/22 18:30 Anion Gap 16.6 (5-19) 05/08/22 18:30 BUN 8 mg/dL (8-23) 05/08/22 18: Creatinine 0.8 mg/dL (0.5-0.9) 05/08/22 18: GFR Calculation 72.7 mL/min (90-130) L 05/08/22 18: Glucose 124 mg/dL (65-115) H 05/08/22 18: Calculated Osmolality 290 mOsm/kg (285-295) 06/07/22 18:30 Calcium 8.9 mg/dL (8.5-10.5) 05/08/22 18:30 Magnesium 2.1 mg/dL (1.7-2.3) 05/08/22 18:30 Total Bilirubin 0.6 mg/dL (0.15-1.2) 05/08/22 18:30 AST 78 U/L (0-32) H 05/08/22 18:30 ALT 69 U/L (0-33) H 05/08/22 18:30 Alkaline Phosphatase 339 IU/L (35-105) H 05/08/22 18:30 Troponin T Baseline 39 ng/L (0-10) H 05/08/22 18:30 Troponin T 120 Minute 26.37 ng/L (0-10) H 05/08/22 20:16 Delta Troponin T -12.63 ABS# (0-10) L 05/08/22 20:16 Total Protein 6.5 g/dL (6.6-8.7) L 05/08/22 18:30 Albumin 3.5 g/dL (3.5-5.2) 05/08/22 18:30 Globulin 3.0 g/dL (1.3-4.6) 05/08/22 18:30 Lipase 5 U/L (13-60) L 05/08/22 18:[address] [place] (Yellow) 05/08/22 18:50 Urine Appearance Sl hazy (CLEAR) 05/08/22 18:50 Urine pH 5 (5-7) 05/08/22 18:50 Ur Specific [place] 1.020 (1.005-1.030) 05/08/22 18:50 Urine Protein 1+ (Negative) H 05/08/22 18:50 Urine Glucose (UA) Norm (Normal) 05/08/22 18:50 Urine Ketones 1+ (Negative) H 05/08/22 18:50 Urine Blood Neg (Negative) 05/08/22 18:50 Urine Nitrate Negative (Negative) 05/08/22 18:50 Urine Bilirubin 2+ (Negative) H 05/08/22 18:50 Urine Urobilinogen 4 mg/dL (Negative) H 05/08/22 18:50 Ur Leukocyte Esterase 1+ (Negative) H 05/08/22 18:50 Urine RBC 0-4 /hpf (0-2) H 05/08/22 18:50 Urine WBC 10-15 /hpf (0-5) H 05/08/22 18:50 Ur Squamous Epith Cells 0-4 /hpf (0-5) H 05/08/22 18:50 Calcium Oxalate Crystal 0-4 /hpf H 05/08/22 18:50 Amorphous Sediment Not Reportable 05/08/22 18:50 Urine Bacteria 1+ /hpf (NONE) H 05/08/22 18:50 Hyaline Casts 25-40 /lpf H 05/08/22 18:50 Urine Mucus 1+ /hpf 05/08/22 18:50 Discharge Plan Discharge Patient Disposition: Home Clinical Impression: Generalized weakness, Diarrhea, Decrease in appetite, Hypokalemia Condition: Stable Prescriptions: New Pepcid 20 mg tablet 20 mg PO BID PRN (Reason: abdominal pain) 10 Days Qty: 20 0RF ondansetron 4 mg tablet,disintegrating 4 mg PO TID PRN (Reason: nausea and vomiting) 4 Days Qty: 12 0RF Maalox Advanced 1,000-60 mg tablet,chewable 1 tab PO TID PRN (Reason: abdominal pain) 7 Days Qty: 21 0RF Protonix 40 mg tablet,delayed release (DR/EC) 40 mg PO DAILY 28 Days Qty: 28 0RF potassium chloride 10 mEq tablet extended release 10 meq PO DAILY 10 Days Qty: 10 0RF No Action zonisamide 25 mg capsule 50 mg PO DAILY 0RF atorvastatin 10 mg tablet 10 mg PO DAILY 0RF All Day Allergy (cetirizine) 10 mg capsule 10 mg PO DAILY PRN (Reason: allergy symptoms) 0RF levothyroxine 150 mcg capsule 150 mcg PO DAILY 0RF prenat.vits,layo,hrw-sszd-fqgis Tablet 1 tab PO DAILY 0RF calcium carbonate [Calcium 600] 600 mg calcium (1,500 mg) tablet 600 mg PO DAILY 0RF cholecalciferol (vitamin D3) 125 mcg (5,000 unit) capsule 125 mcg PO DAILY 0RF mecobalamin (vitamin B12) 5,000 mcg lozenge 5,000 mcg PO DAILY 0RF Rx Instructions: allow to dissolve in mouth OR may chew lightly before swallowing alendronate [Fosamax] 70 mg tablet 70 mg PO .WEEK 0RF donepezil [Aricept] 10 mg tablet 10 mg PO .QHS Qty: 30 11RF buspirone 30 mg tablet 30 mg PO BID Qty: 120 11RF mirtazapine 15 mg tablet 15 mg PO DAILY Qty: 30 11RF midodrine 10 mg tablet 10 mg PO TID Qty: 90 6RF Rx Instructions: do not give last dose of day after 6PM or within 4 hrs of bedtime potassium chloride 20 mEq tablet extended release 40 meq PO BID Qty: 120 6RF fludrocortisone 0.1 mg tablet 0.1 mg PO BID Qty: 60 6RF hydrocodone-acetaminophen 5-325 mg tablet 1 tab PO Q6H PRN (Reason: pain) 3 Days Qty: 7 0RF cephalexin 500 mg capsule 500 mg PO BID Qty: 14 0RF duloxetine [Cymbalta] 60 mg capsule,delayed release(DR/EC) 60 mg PO DAILY Qty: 30 5RF rizatriptan [Maxalt] 10 mg tablet 10 mg PO Q2H PRN (Reason: migraine headache) Qty: 9 3RF Rx Instructions: needs appointment for refills mupirocin 2 % ointment 1 applic topical BID Qty: 22 1RF Rx Instructions: Apply to affected areas until healed hydrocodone-acetaminophen 7.5-325 mg tablet 1 tab PO TID PRN (Reason: pain) 0RF Rx Instructions: fill on or after 01/20/22 tizanidine 4 mg tablet 4 mg PO DAILY PRN (Reason: muscle spasticity) 0RF Rx Instructions: 1/2-1 TAB TID gabapentin 800 mg tablet 800 mg PO TID 0RF ondansetron HCl 4 mg tablet 4 mg PO TID 0RF Protonix 40 mg tablet,delayed release (DR/EC) 40 mg PO DAILY 30 Days Qty: 30 3RF Carafate 1 gram tablet 1 g PO Q6H PRN (Reason: Gastrojejunostomy marginal ulcers) 84 Days Qty: 336 2RF Discharge Orders: Discharge ED (Routine); Ordered 05/08/22 Ordered By: Irlanda Grande Referrals: Steve Cuellar MD [Primary Care Provider] - Discharge Diet: Advance as tolerated Discharge Activity: Increase activity as tolerated Activity Restrictions/Additional Instructions: Please take your potassium tablet as instructed. Please have your repeat blood work done in few days to ensure that your potassium is improving. Please come in to the emergency room for any new or concerning complaints. Please come back if you have any worsening abdominal pain, fever or chills, nausea or vomiting, diarrhea, blood in the stool, inability hold down liquid or solids, or any new concerning complaints. Coding Level of Care Code ED Fire Ranger for Alisha Santa Exam Comprehensive
--- NOTE | 2022-05-08 18:16 | ECG_ITS ---
[facility] Test Date: 2022-05-08 Pat Name: Stefany Bassett Department: Room: Gender: Female Medicare Coordinator: : 1960 Requested By: Irlanda Grande Order Number: [id number] Abdoul MD: Kedar Melgar M.D. Measurements Intervals [place] Rate: 72 P: 37 IN: 115 QRS: -5 QRSD: 80 T: 0 QT: 188 QTc: 206 Interpretive Statements SINUS RHYTHM WITH SHORT IN INTERVAL NONSPECIFIC T-WAVE ABNORMALITY Compared to ECG 02/08/2022 13:14:22 Short IN interval now present T-wave abnormality now present Electronically Signed On 05-09-2022 0:02:57 CDT by Kedar Melgar M.D. [id number]
[2022-05-08 18:24] VITALS: BP 100/68; PULSE 78; RESP 18; TEMP 36.6; O2SAT 99
[2022-05-08 18:48] LABS: Basophils # 0.1 10^3/uL (0.0-0.1); Basophils % 0.7 %; Eosinophils % 0.4 %; Hematocrit 49.8 % (37.0-47.0); Hemoglobin 16.3 g/dL (11.5-15.3); Lymphocytes # 4.1 10^3/uL (0.8-4.8); Lymphocytes % 50.4 %; Mean Corpuscular HGB Conc 32.7 g/dL (30.0-36.0); Mean Corpuscular Hemoglobin 34.1 pg (28.0-34.0); Mean Corpuscular Volume 104.2 fl (81-99); Mean Platelet Volume 11.4 fL (7.4-10.4); Monocytes # 0.6 10^3/uL (0.2-0.9); Monocytes % 6.7 %; Neutrophils # 3.38 10^3/uL (1.8-7.7); Neutrophils % 41.3 %; Nucleated Red Blood Cells % 0 %; Platelet Count 439 10^3/cmm (130-400); Red Blood Count 4.78 10^6/uL (4.1-5.3); Red Cell Distribution Width 14.6 % (12.1-15.1); White Blood Count 8.2 10^3/uL (4.0-10.0)
[2022-05-08 19:04] LABS: Alanine Aminotransferase 69 U/L (0-33); Albumin Level 3.5 g/dL (3.5-5.2); Alkaline Phosphatase 339 IU/L (35-105); Anion Gap 16.6 (5-19); Aspartate Amino Transferase 78 U/L (0-32); Blood Urea Nitrogen 8 mg/dL (8-23); Calcium 8.9 mg/dL (8.5-10.5); Carbon Dioxide 26 mmol/L (22-29); Chloride 100 mmol/L (98-107); Glomerular Filtration Rate 72.7 mL/min (90-130); Glucose 124 mg/dL (65-115); Lipase 5 U/L (13-60); Osmolality Calculated 290 mOsm/kg (285-295); Sodium 140 mmol/L (136-145); Total Bilirubin 0.6 mg/dL (0.15-1.2); Total Protein 6.5 g/dL (6.6-8.7)
[2022-05-08 19:09] LABS: Potassium 2.6 mmol/L (3.5-5.1)
[2022-05-08 19:10] LABS: Urine Color Orange (Yellow)
[2022-05-08 19:11] LABS: Add Urine Microscopic? YES; Bilirubin Urine 2+ (Negative); Blood Urine Neg (Negative); Glucose Urine UA Norm (Normal); Ketones Urine 1+ (Negative); Leukocyte Esterase Urine 1+ (Negative); Nitrate Urine Negative (Negative); Protein Urine 1+ (Negative); Urine Appearance SL Hazy (CLEAR); Urobilinogen Urine 4 mg/dL (Negative); pH Urine 5 (5-7)
[2022-05-08 19:12] LABS: Bacteria Urine 1+ /hpf; Calcium Oxalate Crystals Urine 0-4 /hpf; Mucus Urine 1+ /hpf; RBC Urine 0-4 /hpf (0-2); Squamous Epithelial Cell Urine 0-4 /hpf (0-5)
[2022-05-08 19:13] LABS: Add Urine Culture? Yes; Hyaline Casts Urine 25-40 /lpf
[2022-05-08 19:46] LABS: Magnesium 2.1 mg/dL (1.7-2.3)
[2022-05-08 19:48] LABS: Troponin(5th) Baseline 39 ng/L (0-10)
[2022-05-08] MEDS: famotidine 20 mg/2 mL INJ IVP (19:51)
[2022-05-08] MEDS: potassium chloride ER 20 mEq Tablet 40 MEQ PO (19:52)
[2022-05-08] MEDS: sodium chloride 0.9% 1,000 ML 999 ML IV ×2 (19:57→22:54)
[2022-05-08] MEDS: lidocaine 2% viscous 15 ML, aluminum-mag hydrox-simethicon 30 ML, sucralfate oral liq 1 GM PO (19:59)
[2022-05-08] MEDS: potassium chloride premix 100 ML 25 MEQ IV (20:01)
[2022-05-08 20:15] VITALS: BP 106/76; PULSE 64; RESP 16; O2SAT 100
[2022-05-08 21:01] LABS: Troponin 5 2HR 26.37 ng/L (0-10)
[2022-05-08 22:57] VITALS: BP 97/67; PULSE 65; RESP 18; O2SAT 100
[2022-05-09 00:46] VITALS: BP 123/83; PULSE 73; RESP 16; O2SAT 100
[2022-05-09 00:52] VITALS: BP 123/83; PULSE 73; RESP 16; O2SAT 100
== END 2022-05-09 00:45 | disposition home or self-care (01) ==
PROVIDERS: Emergency Provider Emergency Medicine; PCP Family Medicine
DX: E87.6 Hypokalemia (principal); R53.1 Weakness; R19.7 Diarrhea, unspecified; R63.0 Anorexia; Z68.25 Body mass index [BMI] 25.0-25.9, adult; R11.0 Nausea; K27.9 Peptic ulcer, site unspecified, unspecified as acute or chronic, without hemorrhage or perforation; Z98.84 Bariatric surgery status; Z90.49 Acquired absence of other specified parts of digestive tract; Z90.710 Acquired absence of both cervix and uterus; Z90.79 Acquired absence of other genital organ(s)
CPT/HCPCS: 80053; 81001; 83690; 83735; 84484; 85025; 87077; 87086; 87186; 93005; 96365; 96375; 99285; J3480; J3490; J7030

== ENCOUNTER 2022-05-10 15:30 | Outpatient (CLI) | payer MEDICARE, MEDICAID, SELFPAY ==
[2021-04-06 11:20] VITALS: BP 101/66; BMI 32.7
--- NOTE | 2022-05-10 15:58 | MR_ITS ---
WS: [id number] MRI LUMBAR SPINE NONCONTRAST TECHNIQUE: Sagittal T1, T2 and STIR imaging. Axial T1 and T2 imaging. CLINICAL INFORMATION: LUMBOSACRAL SPONDYLOSIS WITH RADICULOPATHY COMPARISON: MRI [address] 2017 FINDINGS: Mild lumbar curve. No high-grade central canal stenosis. Mild compression superior endplate L4 with m ild edema. Minimal loss vertebral body height. No retropulsion. Additional mild compression inferior endplate L1 with fracture cleft and edema. Loss of approximately 20% vertebral body height. Mild comp ression superior endplate T12 with mild edema. No significant retropulsion. L1-L2: Minimal disc bulging. Mild RIGHT foraminal narrowing. Mild facet arthropathy. Spinal canal is patent. L2-L3: Mild annular bulging. Mild facet arthropathy. Spinal canal and foramen are patent. L3-L4: Mild disc bulging eccentric to the LEFT. Impingement traversing LEFT L4 nerve root. Mild centr al canal stenosis. Mild bilateral foraminal narrowing. Mild facet arthropathy. L4-L5: Mild annular bulging. Slight effacement of ventral thecal sac. Tiny central protrusion. Mild f acet arthropathy. Foramen are patent. L5-S1: Minimal disc bulging and osteophytic ridging. Spinal canal and foramen are patent. Mild facet arthropathy. Small central disc protrusion in the cervical spine at C5-C6 with mild central canal stenosis. Slight contact of the cervical cord. Small amount of edema in the distal sacrum partially visualized on the STIR imaging eccentric to the RIGHT. This can be further evaluated with sacral MRI. Recommend correlation for sacral pain. MR/MR lumbar spine wo con* [id number] IMPRESSION: 1. Mild acute appearing compression of the superior endplate T12, inferior end plate L1, and superior endplate L4 with edema and minimal loss vertebral body h eight. No significant retropulsion. No high-grade central canal stenosis. 2. Edema partially visualized in the distal sacrum and sacrococcygeal junction eccentric to the RIGHT suspicious for sacral fracture or insufficiency fractur e partially visualized. This can be followed up with sacral MRI. 3. Mild central canal stenosis L3-L4 due to mild annular bulging with facet ar thropathy and ligamentum flavum hypertrophy. 4. Tiny central protrusion L4-L5 with slight narrowing of the subarticular re cess bilaterally. 5. Mild RIGHT L3-L4 and RIGHT L4-L5 foraminal narrowing. 6. Small central disc protrusion in the cervical spine at C5-C6 with mild cent ral canal stenosis. Slight contact of the cervical cord.
== END 2022-05-10 15:31 | disposition home or self-care (01) ==
LOC: RAD 15:34
PROVIDERS: PCP Family Medicine; Visit Provider General Practice
DX: M47.27 Other spondylosis with radiculopathy, lumbosacral region (principal)
CPT/HCPCS: 72148

== ENCOUNTER → 2022-05-16 14:42 | Outpatient (BNVA) | payer MEDICARE, MEDICAID, SELFPAY ==
[2021-04-06 11:20] VITALS: BP 101/66; BMI 32.7
== END ==
PROVIDERS: PCP Family Medicine; Visit Provider Surgery
DX: Z09 Encounter for follow-up examination after completed treatment for conditions other than malignant neoplasm (principal); K28.9 Gastrojejunal ulcer, unspecified as acute or chronic, without hemorrhage or perforation; Z98.84 Bariatric surgery status
CPT/HCPCS: 99213

== ENCOUNTER → 2022-06-05 08:42 | Outpatient (BNVA) | payer MEDICARE, MEDICAID, SELFPAY ==
[2021-04-06 11:20] VITALS: BP 101/66; BMI 32.7
== END ==
PROVIDERS: PCP Family Medicine; Visit Provider Nurse Practitioner Family
DX: I95.1 Orthostatic hypotension (principal); R00.0 Tachycardia, unspecified
CPT/HCPCS: 99213

== ENCOUNTER → 2022-06-13 13:30 | Outpatient (BNVA) | payer MEDICAID, SELFPAY ==
[2021-04-06 11:20] VITALS: BP 101/66; BMI 32.7
== END ==
PROVIDERS: PCP Family Medicine; Visit Provider Surgery
DX: K28.9 Gastrojejunal ulcer, unspecified as acute or chronic, without hemorrhage or perforation (principal)
CPT/HCPCS: 99213

== ENCOUNTER → 2022-07-12 08:20 | Outpatient (BNVA) | payer MEDICARE, MEDICAID, SELFPAY ==
[2021-04-06 11:20] VITALS: BP 101/66; BMI 32.7
== END ==
PROVIDERS: PCP Family Medicine; Visit Provider Specialist
DX: G43.711 Chronic migraine without aura, intractable, with status migrainosus (principal)
CPT/HCPCS: 64615; J0585

== ENCOUNTER → 2022-07-18 16:10 | Outpatient (BNVA) | payer MEDICARE, MEDICAID, SELFPAY ==
[2021-04-06 11:20] VITALS: BP 101/66; BMI 32.7
== END ==
PROVIDERS: PCP Family Medicine; Visit Provider Internal Medicine Cardiovascular Disease
DX: I95.1 Orthostatic hypotension (principal); I10 Essential (primary) hypertension; G43.711 Chronic migraine without aura, intractable, with status migrainosus; F41.1 Generalized anxiety disorder; Z98.84 Bariatric surgery status; K28.9 Gastrojejunal ulcer, unspecified as acute or chronic, without hemorrhage or perforation; M51.36 Other intervertebral disc degeneration, lumbar region
CPT/HCPCS: 80048; 83735; 83880; 99214

== ENCOUNTER 2022-07-27 06:20 | Day surgery (SDC) | payer MEDICARE, MEDICAID, SELFPAY ==
[2021-04-06 11:20] VITALS: BP 101/66; BMI 32.7
--- NOTE | 2022-07-27 06:15 | W.PM.OPSFHP ---
Same Day Surgery H&P Indication for Procedure/HPI DATE OF PROCEDURE: July 27, 2022 CHIEF COMPLAINT/INDICATIONFOR SURGICAL PROCEDURE: Weakness PREOP DIAGNOSIS: Gastrojejunal ulcers status post gastric bypass PLANNED PROCEDURE: Operation Date: 07/27/22 08:00 Proposed Procedures p EGD 86871,R13.10(Not Applicable) - Daniele Ortiz MD 04/23/2022 Patient is a pleasant 61 years old female patient status post laparoscopic Aviva-en-Y gastric bypass back in 2002 [facility], following that patient did develop internal herniation and she had a laparotomy to repair that as well as gallbladder surgery, initial weight 325 pounds went down to 165 pounds then regained weight up to 220 and went down again to 140 pounds.? She stopped taking her bariatric vitamins and she does receive only vitamin B12 per her description.? Repeated history of falls and in fact she did fall today and hit her head with component of brief loss of consciousness.? Patient was referred to my practice for evaluation for her difficulty in swallowing as it has been getting worse over the past year or so for any kind of food whether it is solid or even liquids.? There is no evidence of her vitamin levels being checked recently.? Patient had previous work-up for dysphagia in the form of barium swallow that was done back in January 2022 that showed; 1.? There is significant esophageal dysmotility with delayed emptying of the esophagus and dilatation. 2.? No high-grade stricture. 3.? Mild diffuse esophagitis. 4.? Large intermittently visualized hiatal hernia. Also CT of the abdomen pelvis 03/30/2022 that did show 1.? Small amount of free fluid in the pelvis of uncertain etiology. 2.? Mild diffuse soft tissue anasarca. 3.? Extensive diffuse constipation and tortuosity throughout the colon. There is mild wall thickening at the cecum and ascending colon which may be due to mild colitis and chronic changes of diverticulosis. No obstructing lesion identified. Colonoscopy may be necessary to better evaluate the cecum due to the marked fecal retention and constipation. 4.? No adenopathy. 5.? Osteoporotic compression fractures at T12, L1 and L4. The L4 compression fracture is new since 09/25/2021. 6.? Prior gastric bypass surgery, cholecystectomy, appendectomy and hysterectomy. Following that a modified barium swallow was done on 04/04/2022 that did show 1.? Penetration with multiple consistencies. No burke aspiration. 2.? No difficulties with barium tablet. 3.? Moderate esophageal dysmotility. No high-grade stricture. 4.? Previously described large hiatal hernia not visualized on the study today. Prior gastric bypass. Patient is referred to me for further evaluation, she mentioned that she had a colonoscopy about 4 5 years ago and was normal per her description. 05/16/2022 Patient comes today status post esophagogastro jejunoscopy 04/26/2022 and was found to have gastrojejunal marginal ulcers x3 status post laparoscopic Aviva-en-Y gastric bypass.? Patient was placed on Carafate and Protonix and she feels a whole lot better and denies any odynophagia. She seems to be regaining her strength back slowly. 06/13/2022 Patient comes today and she feels better when she started to restore her energy slowly.? Continues to be on PPI and Carafate.? Yet overall she still feeling weak but she has been compliant with her bariatric vitamins Interim history 07/27/2022 Patient comes today for diagnostic EGD. Follow on her marginal ulcers of the gastrojejunostomy ROS All systems have been reviewed negative except as for the above or per problem list. Medications/Allergies* Home Medications Medication Instructions Recorded Confirmed Type atorvastatin 10 mg tablet 10 mg PO DAILY 11/22/20 07/25/22 History cetirizine 10 mg capsule (All Day 10 mg PO DAILY PRN allergy symptoms 11/22/20 07/25/22 History Allergy (cetirizine)) levothyroxine 150 mcg capsule 150 mcg PO DAILY 11/22/20 07/25/22 History calcium carbonate 600 mg calcium 600 mg PO DAILY 06/13/21 07/25/22 History (1,500 mg) tablet (Calcium) cholecalciferol (vitamin D3) 125 125 mcg PO DAILY 06/13/21 07/25/22 History mcg (5,000 unit) capsule mecobalamin (vitamin B12) 5,000 5,000 mcg PO DAILY 06/13/21 07/25/22 History mcg lozenge alendronate 70 mg tablet (Fosamax) 70 mg PO .WEEK 12/13/21 07/25/22 History gabapentin 800 mg tablet 800 mg PO TID pain 02/08/22 07/25/22 History Allergies/Adverse Reactions Allergy/AdvReac Type Severity Reaction Status Date / Time lithium Allergy Intermediate NAUSEA AND Verified 07/27/22 06:16 VOMITING adhesive tape AdvReac Intermediate ALGY-Rash Verified 07/27/22 06:16 Pertinent History/Comorbid Conditions* Medical History (Updated 06/18/22 @ 15:35 by Rae Christiansen) Acute lumbar radiculopathy Borderline personality disorder Chronic lumbar radiculopathy Chronic migraine without aura, intractable, with status migrainosus DDD (degenerative disc disease), lumbar Encounter for long-term (current) use of NSAIDs Encounter for long-term opiate analgesic use Generalized anxiety disorder Major depression, recurrent, full remission Minor neurocognitive disorder Post-traumatic stress disorder, chronic Psychiatric care Surgical History (Updated 04/23/22 @ 11:59 by Daniele Ortiz MD) History of 2 sections History of carpal tunnel surgery of left wrist Hx of appendectomy Hx of bilateral salpingectomy Hx of cholecystectomy Hx of colectomy bowel obstruction 11/2012 Hx of gastric bypass Hx of hernia repair Hx of hysterectomy Hx of knee surgery Right Hx of shoulder surgery Left Hx of tubal ligation Family History (Updated 02/16/20 @ 08:46 by Brittny Mcleod LPN) Diabetes CAD (coronary artery disease) Hyperlipidemia Cancer Hypertension Stroke Social History Smoking and tobacco status: never smoked Second hand smoke exposure: No Alcohol intake: never Adopted: No Lives independently: Yes Household members: spouse and other Details: Grandson Housing: House Marital status: Marital status details: 27 years Number of children: 2 Number of grandchildren: 1 Highest education level completed: Associate Degree: Occupational, Technical, Vocational Program Education level details: Business service: No Current occupational status: disabled Current occupational exposures/hazards: No Pets and animals: Yes Pets & animals: cat(s), dog(s) and farm animals Farm Animals: other History of recent travel: No Leisure activites: other Leisure activities details: watch TV Sexually active: Yes Current gender identity: Female Alexandra/Restorationist: Spiritism Special alexandra needs: No Agree to transfusion: Yes Financial difficulty paying for basics: Very Hard Pertinent Exam Findings alert, oriented x 3, regular rate & rhythm and procedure specific exam findings (Abdominal exam nontender nondistended soft) Recommendations Surgery/Procedure today (Diagnostic EGD with possible biopsy) Coding Level of Care Code Acute Systems Program Manager for Chg Fwd
[2022-07-27 06:50] VITALS: BP 127/94; PULSE 106; RESP 18; TEMP 36.1; O2SAT 99
[2022-07-27] MEDS: sodium chloride 0.9% 1,000 ML 30 ML IV (07:04)
--- NOTE | 2022-07-27 07:39 | ANES.PREANE2 ---
Pre-Anesthetic Assessment Height/Weight: Height 1.57 m Weight 56.699 kg Temp Pulse Resp BP Pulse Ox O2 Del Method 97 F L 106 H 18 127/94 99 07/27/22 06:50 07/27/22 06:50 07/27/22 06:50 07/27/22 06:50 07/27/22 06:50 07/27/22 06:50 Preop Diagnosis: Gastrojejunostomy ulcers Operation Date: 07/27/22 08:00 Proposed Procedures p EGD 71036,R13.10(Not Applicable) - Daniele Ortiz MD Familial anesthetic complications: none Last intake: Intake Last Liquid Date 07/26/22 Last Liquid Time 21:00 Last Solid Date 07/26/22 Last Solid Time 19:30 Exam alert, oriented x 3, clear to auscultation bilaterally and regular rate & rhythm Airway Submandibular: within normal limits Cervical ROM: within normal limits Mallampati: Class I Dentition: full Pulmonary Shortness of Breath with exertion. currently under care of cardiology CV/HEM None reported None reported Hepatic None reported GI Gastroesophageal Reflux Disease dysphagia Metabolic Diabetes Mellitus and Thyroid Disease [facility] [place] Fibromyalgia chronic pain, chronic opioid use Neuropsych Anxiety and Depression personality disorder, PTSD Anesthetic Plan ASA status: 3 Anesthesia: Anesthesia Evaluation and MAC Risk of > 500 ml blood loss (7ml/kg in children): Yes, adequate IV access and fluids planned Other Pertinent Information recent unintentinal weight loss. METS < 4 due to SOB and pain. Medications/Allergies Home Medications Medication Instructions Recorded Confirmed Last Taken Type atorvastatin 10 mg tablet 10 mg PO DAILY 11/22/20 07/27/22 07/26/22 History cetirizine 10 mg capsule (All Day 10 mg PO DAILY PRN allergy symptoms 11/22/20 07/27/22 07/26/22 History Allergy (cetirizine)) levothyroxine 150 mcg capsule 150 mcg PO DAILY 11/22/20 07/27/22 07/26/22 History calcium carbonate 600 mg calcium 600 mg PO DAILY 06/13/21 07/27/22 07/26/22 History (1,500 mg) tablet (Calcium) cholecalciferol (vitamin D3) 125 125 mcg PO DAILY 06/13/21 07/27/22 07/26/22 History mcg (5,000 unit) capsule mecobalamin (vitamin B12) 5,000 5,000 mcg PO DAILY 06/13/21 07/27/22 07/26/22 History mcg lozenge buspirone 30 mg tablet 30 mg PO BID #120 tabs 10/09/21 07/27/22 07/26/22 Rx mirtazapine 15 mg tablet 15 mg PO DAILY #30 tabs 10/09/21 07/27/22 07/26/22 Rx rizatriptan 10 mg tablet (Maxalt) 10 mg PO Q2H PRN migraine headache 11/30/21 07/27/22 04/25/22 Rx #9 tabs alendronate 70 mg tablet (Fosamax) 70 mg PO .WEEK 12/13/21 07/27/22 04/25/22 History gabapentin 800 mg tablet 800 mg PO TID pain 02/08/22 07/27/22 07/26/22 History midodrine 10 mg tablet 10 mg PO TID #90 tabs 02/16/22 07/27/22 07/26/22 Rx hydrocodone 5 mg-acetaminophen 325 1 tab PO Q6H PRN pain 3 days #7 04/03/22 07/27/22 07/26/22 Rx mg tablet tabs duloxetine 60 mg capsule,delayed 60 mg PO DAILY #30 caps 04/17/22 07/27/22 07/26/22 Rx release (Cymbalta) pantoprazole 40 mg tablet,delayed 40 mg PO DAILY 30 days #30 tabs 04/26/22 07/27/22 07/26/22 Rx release (Protonix) droxidopa 100 mg capsule (Northera) 100 mg PO TID #90 caps 07/23/22 07/27/22 Unknown Rx fludrocortisone 0.1 mg tablet 0.1 mg PO DAILY #30 tabs 07/24/22 07/27/22 07/26/22 Rx potassium chloride 20 mEq 40 meq PO DAILY #120 tabs 07/24/22 07/27/22 07/26/22 Rx tablet,extended release Allergies Allergy/AdvReac Type Severity Reaction Status Date / Time lithium Allergy Intermediate NAUSEA AND Verified 07/27/22 06:16 VOMITING adhesive tape AdvReac Intermediate ALGY-Rash Verified 07/27/22 06:16 Current Medications Generic Name Dose Route Start Last Admin Trade Name Freq PRN Reason Stop Dose Admin Sodium Chloride 1,000 mls @ 30 mls/hr 07/27/22 06:45 07/27/22 07:04 Sodium Chloride 0.9% IV 30 mls/hr .Q24H PRINCE Administration PFSH Anesthesia Medical History Acute lumbar radiculopathy Borderline personality disorder Chronic lumbar radiculopathy Chronic migraine without aura, intractable, with status migrainosus DDD (degenerative disc disease), lumbar Encounter for long-term (current) use of NSAIDs Encounter for long-term opiate analgesic use Generalized anxiety disorder Major depression, recurrent, full remission Minor neurocognitive disorder Post-traumatic stress disorder, chronic Psychiatric care Surgical History History of 2 sections History of carpal tunnel surgery of left wrist Hx of appendectomy Hx of bilateral salpingectomy Hx of cholecystectomy Hx of colectomy bowel obstruction 11/2012 Hx of gastric bypass Hx of hernia repair Hx of hysterectomy Hx of knee surgery Right Hx of shoulder surgery Left Hx of tubal ligation Family History Other CAD (coronary artery disease) Cancer Diabetes Hyperlipidemia Hypertension Stroke Social History Smoking and tobacco status: never smoked Second hand smoke exposure: No Alcohol intake: never Adopted: No Lives independently: Yes Household members: spouse and other Details: Grandson Housing: House Marital status: Marital status details: 27 years Number of children: 2 Number of grandchildren: 1 Highest education level completed: Associate Degree: Occupational, Technical, Vocational Program Education level details: Business service: No Current occupational status: disabled Current occupational exposures/hazards: No Pets and animals: Yes Pets & animals: cat(s), dog(s) and farm animals Farm Animals: other History of recent travel: No Leisure activites: other Leisure activities details: watch TV Sexually active: Yes Current gender identity: Female Alexandra/Druze: Worship Special alexandra needs: No Agree to transfusion: Yes Financial difficulty paying for basics: Very Hard Data Anesthesia Cardiac Studies: Sestamibi Stress Test (Cardiology) 12/22/21
[2022-07-27 08:04] VITALS: BP 115/81; PULSE 90; RESP 16; TEMP 36.3; O2SAT 95
[2022-07-27 08:09] VITALS: BP 120/83; PULSE 92; RESP 16; O2SAT 95
[2022-07-27 08:19] VITALS: BP 128/96; PULSE 98; RESP 18; O2SAT 97
--- NOTE | 2022-07-27 09:40 | ANE.PACU2 ---
Inpatient post-anesthesia follow up: Airway intact: Yes Vital signs: Temperature 97.4 F Pulse Rate 98 Respiratory Rate 18 Blood Pressure 128/96 Pulse Oximetry 97 Oxygen Delivery Me thod Room Air Oxygen Flow Rate Fraction of Inspir ed Oxygen Hydration adequate: Yes Nausea and vomiting: No Pain level: 1 Mental status: Baseline
== END 2022-07-27 08:35 | disposition home or self-care (01) ==
PROVIDERS: PCP Family Medicine; Visit Provider Surgery
PROC: 0DJ08ZZ Inspection of Upper Intestinal Tract, Via Natural or Artificial Opening Endoscopic (ICD-10-PCS; CPT 43235; principal; 2022-07-27 08:00)
DX: K28.9 Gastrojejunal ulcer, unspecified as acute or chronic, without hemorrhage or perforation (principal); R13.10 Dysphagia, unspecified; Z98.84 Bariatric surgery status
CPT/HCPCS: 43235; J2704; J7030

== ENCOUNTER 2022-08-01 13:33 | Inpatient (IN) | payer MEDICARE, MEDICAID, SELFPAY ==
[2021-04-06 11:20] VITALS: BP 101/66; BMI 32.7
--- NOTE | 2022-08-01 13:44 | XR_ITS ---
WS: [id number] Exam: XR chest 1V portable [id number] Date/Time of Exam: 08/01/2022 2:06 PM Reason For Exam: [email or web address] Comparison 02/08/2022. Right basal pleural effusion is noted with areas of atelectasis in the right middle and lower lobe. T he left lung is clear. No acute infiltrates. Cardiomediastinal silhouette is unremarkable for techniq ue. A battery pack superimposes the left heart. Bony structures are intact. Anchoring screw in the le ft humeral head. Postoperative changes in the upper abdomen with surgical clips. XR/XR chest 1V portable [id number] IMPRESSION: 1. Moderate size right basal pleural effusion with areas of atelectasis in the middle and lower lobes the right lung.
[2022-08-01 13:51] VITALS: BP 95/69; PULSE 90; RESP 16; TEMP 36.9; O2SAT 97; BMI 22.8
--- NOTE | 2022-08-01 14:07 | ECG_ITS ---
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 Measurements Intervals [place] Rate: 102 P: 13 UT: 122 QRS: 1 QRSD: 83 T: 23 QT: 346 QTc: 452 Interpretive Statements SINUS TACHYCARDIA LOW QRS VOLTAGE IN EXTREMITY LEADS Nonspecific T wave abnormality Compared to ECG 05/08/2022 18:26:19 Low QRS voltage now present Sinus rhythm no longer present Short UT interval no longer present Electronically Signed On 08-01-2022 16:18:47 CDT by Laxmi Pack M.D. [email or web address]
--- NOTE | 2022-08-01 14:25 | ED_ITS ---
HPI - General Adult General: Chief complaint: Shortness of Breath/Dyspnea Stated complaint: SOB/fluid retention on legs/arms Time Seen by Provider: 08/01/22 13:44 History of Present Illness: Patient is a 62-year-old female history of hypothyroidism, diabetes who presents the emergency room for evaluation of bilateral leg swelling and shortness of breath. Patient tells me that she has been having symptoms for the last week. Patient was started on furosemide by Dr. Cuellar. Patient's been taking 40 mg furosemide daily without any improvements in the swelling. Over the last week, patient reports significant exertional dyspnea shortness of breath. Patient denies any cardiac diseases. Patient tells me that her EKG from previous visit has changed compared to before. She denies any chest pain, cough, runny nose, sore throat, fever or chills, abdominal pain, diarrhea/melena/hematochezia. Patient has no complaints. Onset: 1 week ago Duration:1 week Location:home Severity:moderate Associated symptoms: Reports dyspnea; Deny chest pain, nausea, rash, palpitations or vomiting Review of Systems Const: Denies: fever(s) or chills Eyes: Denies: change in vision ENMT: Denies: mouth pain Card: Reports: dyspnea on exertion; Denies: chest pain or palpitations Resp: Reports: dyspnea; Denies: non-productive cough GI: Denies: abdominal pain, nausea, vomiting or diarrhea : Denies: dysuria Musc: Reports: other (+b/l leg swelling); Denies: extremity pain Skin/Breast: Denies: rash or new lesions Neuro: Denies: weakness in extremities Psych: Reports: other (Normal mood) Louis/Lymph: Denies: easy bruising PFSH ED PFSH: Medical History Acute lumbar radiculopathy Borderline personality disorder Chronic lumbar radiculopathy Chronic migraine without aura, intractable, with status migrainosus DDD (degenerative disc disease), lumbar Encounter for long-term (current) use of NSAIDs Encounter for long-term opiate analgesic use Generalized anxiety disorder Major depression, recurrent, full remission Marginal ulcer Minor neurocognitive disorder Post-traumatic stress disorder, chronic Pouchitis Psychiatric care Surgical History History of 2 sections History of carpal tunnel surgery of left wrist Hx of appendectomy Hx of bilateral salpingectomy Hx of cholecystectomy Hx of colectomy bowel obstruction 11/2012 Hx of gastric bypass Hx of hernia repair Hx of hysterectomy Hx of knee surgery Right Hx of shoulder surgery Left Hx of tubal ligation Family History Other CAD (coronary artery disease) Cancer Diabetes Hyperlipidemia Hypertension Stroke Social History Smoking and tobacco status: never smoked Second hand smoke exposure: No Alcohol intake: never Adopted: No Lives independently: Yes Household members: spouse and other Details: Grandson Housing: House Marital status: Marital status details: 27 years Number of children: 2 Number of grandchildren: 1 Highest education level completed: Associate Degree: Occupational, Technical, Vocational Program Education level details: Business service: No Current occupational status: disabled Current occupational exposures/hazards: No Pets and animals: Yes Pets & animals: cat(s), dog(s) and farm animals Farm Animals: other History of recent travel: No Leisure activites: other Leisure activities details: watch TV Sexually active: Yes Current gender identity: Female Alexandra/Zoroastrian: Hinduism Special alexandra needs: No Agree to transfusion: Yes Financial difficulty paying for basics: Very Hard Physical Exam Const: COMMON NORMALS: alert HENMT: COMMON NORMALS: atraumatic HEAD & SCALP: atraumatic MOUTH: moist mucous membranes not abnormal Eye: COMMON NORMALS: EOMs intact bilaterally and conjunctivae normal CONJUNCTIVA: Yes conjunctivae normal Neck/C-Spine: COMMON NORMALS: full ROM and supple Resp: COMMON NORMALS: normal respiratory effort OTHER: +coarse breath sounds b/l Cardio: COMMON NORMALS: regular rate RATE: regular rate GI: COMMON NORMALS: Soft to palpation and non-tender PALPATION: Yes Soft to palpation Extremity: COMMON NORMALS: full ROM OTHER: 1+ lower extremity edema b/la Neuro: SENSORIUM/ORIENTATION: Yes alert MOTOR EXAM: No Abnormal motor strength present and Other motor observations present (no focal motor deficits) Psych: COMMON NORMALS: speech normal SPEECH: Yes normal speech MOOD & AFFECT: Yes euthymic mood Course Vital Signs: Vital signs: Vital Signs Temperature 98.4 F 08/01/22 13:51 Pulse Rate 96 08/01/22 15:34 Respiratory Rate 16 08/01/22 14:54 Blood Pressure 135/85 08/01/22 15:34 Pulse Oximetry 94 08/01/22 15:34 Oxygen Delivery Me thod 08/01/22 15:34 MDM - General Adult Medical Decision Making Patient is a 62-year-old female history of hypothyroidism, diabetes who presents the emergency room for evaluation of bilateral leg swelling and shortness of breath. She has lower extremity swelling and mild abdominal distention. Patient has no increased oxygen requirement. X-ray showed cardiomegaly. BNP noted to be elevated to 693. Albumin of 1.5. I discussed case Dr. Cuellar who would like patient to be mated to hospital for correction of volume overload secondary to starvation/decreased albumin. She received Lasix in the ER. Disposition: admission Lab Data : 08/01/22 14:32 08/01/22 16:11 Radiology Impressions Chest X-Ray 08/01/22 13:44 IMPRESSION: 1. Moderate size right basal pleural effusion with areas of atelectasis in the middle and lower lobes the right lung. Laboratory Results WBC 10.6 10^3/uL (4.0-10.0) H 08/01/22 14:32 RBC 3.43 10^6/uL (4.1-5.3) L 08/01/22 14:32 Hgb 12.3 g/dL (11.5-15.3) 08/01/22 14:32 Hct 40.8 % (37.0-47.0) 08/01/22 14:32 MCV 119.0 fl (81-99) H 08/01/22 14:32 MCH 35.9 pg (28.0-34.0) H 08/01/22 14:32 MCHC 30.1 g/dL (30.0-36.0) 08/01/22 14:32 RDW 16.4 % (12.1-15.1) H 08/01/22 14:32 Plt Count 249 10^3/cmm (130-400) 08/01/22 14:32 MPV 10.4 fL (7.4-10.4) 08/01/22 14:32 Neut % (Auto) 54.1 % 08/01/22 14:32 Lymph % (Auto) 38.5 % 08/01/22 14:32 Callahan % (Auto) 6.2 % 08/01/22 14:32 Eos % (Auto) 0.1 % 08/01/22 14:32 Baso % (Auto) 0.6 % 08/01/22 14:32 Neut # (Auto) 5.73 10^3/uL (1.8-7.7) 08/01/22 14:32 Lymph # (Auto) 4.1 10^3/uL (0.8-4.8) 08/01/22 14:32 Callahan # (Auto) 0.7 10^3/uL (0.2-0.9) 08/01/22 14:32 Eos # (Auto) 0.0 10^3/uL (0.0-0.8) 08/01/22 14:32 Baso # (Auto) 0.1 10^3/uL (0.0-0.1) 08/01/22 14:32 Nucleated RBC % (auto) 0 % 08/01/22 14:32 Nucleated RBCs # 0.0 /100WBC 08/01/22 14:32 Sodium 138 mmol/L (136-145) 08/01/22 16:11 Potassium 4.0 mmol/L (3.5-5.1) 08/01/22 16:11 Chloride 105 mmol/L (98-107) 08/01/22 16:11 Carbon Dioxide 22 mmol/L (22-29) 08/01/22 16:11 Anion Gap 15.0 (5-19) 08/01/22 16:11 BUN 12 mg/dL (8-23) 08/01/22 16:11 Creatinine 0.7 mg/dL (0.5-0.9) 08/01/22 16:11 GFR Calculation 84.8 mL/min (90-130) L 08/01/22 16:11 Glucose 75 mg/dL (65-115) 08/01/22 16:11 Calculated Osmolality 284 mOsm/kg (285-295) L 08/01/22 16:11 Calcium 7.7 mg/dL (8.5-10.5) L 08/01/22 16:11 Total Bilirubin 0.5 mg/dL (0.15-1.2) 08/01/22 16:11 AST 58 U/L (0-32) H 08/01/22 16:11 ALT 38 U/L (0-33) H 08/01/22 16:11 Alkaline Phosphatase 265 U/L (35-105) H 08/01/22 16:11 Ammonia 42 umol/L (11-51) 08/01/22 16:11 Troponin T Baseline 26 ng/L (0-10) H 08/01/22 14:32 Troponin T 120 Minute 22.72 ng/L (0-10) H 08/01/22 16:11 Delta Troponin T -3.28 ABS# (0-10) L 08/01/22 16:11 NT-Pro-B Natriuret Pep 693 pg/mL (0-125) H 08/01/22 14:32 Total Protein 4.1 g/dL (6.6-8.7) L 08/01/22 16:11 Albumin 1.8 g/dL (3.5-5.2) L 08/01/22 16:11 Globulin 2.3 g/dL (1.3-4.6) 08/01/22 16:11 TSH 0.43 uIU/mL (0.27-4.20) 08/01/22 14:32 Free T4 0.73 ng/dL (0.82-1.77) L 08/01/22 14:32 Imaging Data Other Imaging: Radiologist's impression: [address] [address] XRay Report Signed Patient: Stefany Bassett Unit #: [id number] : 1960 Age/Sex: 62 / F ADM Date: 08/01/22 Loc: ER Room/Bed: Attending Dr: Ordering Provider/Ordering MD: Irlanda Grande MD Date of Service: 08/01/22 Procedure(s): XR chest 1V portable [id number] Accession Number(s): [id number] Report Number: [id number] WS: [id number] Exam: XR chest 1V portable [id number] Date/Time of Exam: 08/01/2022 2:06 PM Reason For Exam: dypnsea Comparison 02/08/2022. Right basal pleural effusion is noted with areas of atelectasis in the right middle and lower lobe. The left lung is clear. No acute infiltrates. Cardiomediastinal silhouette is unremarkable for technique. A battery pack superimposes the left heart. Bony structures are intact. Anchoring screw in the left humeral head. Postoperative changes in the upper abdomen with surgical clips. XR/XR chest 1V portable [id number] IMPRESSION: 1. Moderate size right basal pleural effusion with areas of atelectasis in the middle and lower lobes the right lung. ? Dictated By: Ismael Chavez DO Signed By: Ismael Chavez DO Signed Date/Time: 08/01/221408 DD/ 05 Discharge Plan Discharge Condition: Stable Prescriptions: No Action atorvastatin 10 mg tablet 10 mg PO DAILY All Day Allergy (cetirizine) 10 mg capsule 10 mg PO DAILY PRN (Reason: allergy symptoms) calcium carbonate [Calcium 600] 600 mg calcium (1,500 mg) tablet 600 mg PO DAILY cholecalciferol (vitamin D3) 125 mcg (5,000 unit) capsule 125 mcg PO DAILY mecobalamin (vitamin B12) 5,000 mcg lozenge 5,000 mcg PO DAILY Rx Instructions: allow to dissolve in mouth OR may chew lightly before swallowing alendronate [Fosamax] 70 mg tablet 70 mg PO Q7D Rx Instructions: On Mondays droxidopa [Northera] 100 mg capsule 100 mg PO TID Qty: 90 3RF Rx Instructions: give consistently with OR without food, upon rising, at midday, late PM/at least 3hrs before bedtime fludrocortisone 0.1 mg tablet 0.1 mg PO DAILY Qty: 30 6RF buspirone 30 mg tablet 30 mg PO BID Qty: 120 11RF midodrine 10 mg tablet 10 mg PO TID Qty: 90 6RF Rx Instructions: do not give last dose of day after 6PM or within 4 hrs of bedtime hydrocodone-acetaminophen 5-325 mg tablet 1 tab PO Q6H PRN (Reason: pain) 3 Days Qty: 7 0RF duloxetine [Cymbalta] 60 mg capsule,delayed release(DR/EC) 60 mg PO DAILY Qty: 30 5RF rizatriptan [Maxalt] 10 mg tablet 10 mg PO Q2H PRN (Reason: migraine headache) Qty: 9 3RF Rx Instructions: needs appointment for refills gabapentin 800 mg tablet 800 mg PO TID pantoprazole [Protonix] 40 mg tablet,delayed release (DR/EC) 40 mg PO DAILY 30 Days Qty: 30 3RF Lasix 40 mg Tablet 40 mg PO BID sucralfate 1 gram Tablet 1 g PO BID levothyroxine 125 mcg tablet 125 mcg PO DAILY zonisamide 25 mg Capsule 50 mg PO BEDTIME mirtazapine 15 mg tablet 15 mg PO BEDTIME potassium chloride 20 mEq tablet extended release 40 meq PO BID Referrals: Steve Cuellar MD [Primary Care Provider] - Coding Level of Care Code ED Pelts Skinner for Chg Fwd Exam Comprehensive
[2022-08-01 14:41] LABS: Basophils # 0.1 10^3/uL (0.0-0.1); Basophils % 0.6 %; Eosinophils % 0.1 %; Hematocrit 40.8 % (37.0-47.0); Hemoglobin 12.3 g/dL (11.5-15.3); Lymphocytes # 4.1 10^3/uL (0.8-4.8); Lymphocytes % 38.5 %; Mean Corpuscular HGB Conc 30.1 g/dL (30.0-36.0); Mean Corpuscular Hemoglobin 35.9 pg (28.0-34.0); Mean Platelet Volume 10.4 fL (7.4-10.4); Monocytes # 0.7 10^3/uL (0.2-0.9); Monocytes % 6.2 %; Neutrophils # 5.73 10^3/uL (1.8-7.7); Neutrophils % 54.1 %; Nucleated Red Blood Cells % 0 %; Platelet Count 249 10^3/cmm (130-400); Red Blood Count 3.43 10^6/uL (4.1-5.3); Red Cell Distribution Width 16.4 % (12.1-15.1); White Blood Count 10.6 10^3/uL (4.0-10.0)
[2022-08-01 14:54] VITALS: BP 135/85; PULSE 98; RESP 16; O2SAT 96
[2022-08-01 15:05] LABS: Troponin(5th) Baseline 26 ng/L (0-10)
[2022-08-01 15:13] LABS: Blood Urea Nitrogen 12 mg/dL (8-23); Carbon Dioxide 22 mmol/L (22-29); Chloride 104 mmol/L (98-107); Glomerular Filtration Rate 84.8 mL/min (90-130); Glucose 85 mg/dL (65-115); NT Pro B Type Natriuretic Pept 693 pg/mL (0-125); Osmolality Calculated 285 mOsm/kg (285-295); Sodium 138 mmol/L (136-145); Thyroid Stimulating Hormone 0.43 uIU/mL (0.27-4.20)
[2022-08-01] MEDS: FUROsemide 10 mg/mL SDV 10mL 80 MG IVP (15:30)
[2022-08-01 15:34] VITALS: BP 135/85; PULSE 96; O2SAT 94
--- NOTE | 2022-08-01 16:13 | ECG_ITS ---
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 Measurements Intervals [place] Rate: 97 P: 18 VT: 114 QRS: 10 QRSD: 83 T: -32 QT: 215 QTc: 274 Interpretive Statements SINUS RHYTHM WITH SHORT VT INTERVAL LOW QRS VOLTAGE IN EXTREMITY LEADS [QRS DEFLECTION < 0.5 mV IN LIMB LEADS] Compared to ECG 08/01/2022 14:07:11 Short VT interval now present Sinus tachycardia no longer present Electronically Signed On 08-01-2022 16:25:06 CDT by Laxmi Pack M.D. [id number]
[2022-08-01 16:39] LABS: Free T4 Free Thyroxine 0.73 ng/dL (0.82-1.77)
[2022-08-01 16:41] LABS: Troponin 5 2HR 22.72 ng/L (0-10)
[2022-08-01 16:42] LABS: Alanine Aminotransferase 38 U/L (0-33); Albumin Level 1.8 g/dL (3.5-5.2); Alkaline Phosphatase 265 U/L (35-105); Aspartate Amino Transferase 58 U/L (0-32); Blood Urea Nitrogen 12 mg/dL (8-23); Calcium 7.7 mg/dL (8.5-10.5); Carbon Dioxide 22 mmol/L (22-29); Chloride 105 mmol/L (98-107); Globulin 2.3 g/dL (1.3-4.6); Glomerular Filtration Rate 84.8 mL/min (90-130); Glucose 75 mg/dL (65-115); Osmolality Calculated 284 mOsm/kg (285-295); Sodium 138 mmol/L (136-145); Total Bilirubin 0.5 mg/dL (0.15-1.2); Total Protein 4.1 g/dL (6.6-8.7)
[2022-08-01 16:43] LABS: Ammonia 42 umol/L (11-51); Troponin 5 2HR Delta -3.28 ABS# (0-10)
[2022-08-01 17:30] VITALS: BP 114/93; PULSE 100; RESP 12; TEMP 37.1; O2SAT 97
--- NOTE | 2022-08-01 18:02 | USCV_ITS ---
Stefany Bassett Age: 62 Gender: F : 1960 Exam Date: 08/01/2022 18:20 Ordering Phys: Trace Casey MD Technologist: Lulú Meade Exam Location: [facility] Indication: SOB and swelling BP: 114 / 93 HR: 98 Rhythm: Sinus Technical Quality: Suboptimal MEASUREMENTS (Male / Female) Normal Values 2D ECHO LV Diastolic Diameter PLAX 3.5 cm 4.2 - 5.9 / 3.9 - 5.3 cm LV Systolic Diameter PLAX 1.4 cm LV Chamber Size 2.5 cm IVS Diastolic Thickness 1.2 cm 0.6 - 1.0 / 0.6 - 0.9 cm IVS Systolic Thickness 1.8 cm LVPW Diastolic Thickness 1.3 cm 0.6 - 1.0 / 0.6 - 0.9 cm LVPW Systolic Thickness 1.1 cm RV Chamber Size 2.1 cm LVOT Diameter 2.1 cm LV Ejection Fraction 2D Teich 90.6 % LV Ejection Fraction MOD 2C 71.8 % LV Ejection Fraction 2C AL 72.7 % LA Diameter 2.8 cm LA Width 2.4 cm LA Height 2.1 cm RA Width 2.4 cm RA Height 1.5 cm Aorta at Sinotubular Diameter 3.1 cm IVC Diameter 1.9 cm M-MODE Aortic Annulus Diameter 3.7 cm LA Ao Ratio MM 1.0 MV E Point Septal Separation 0.1 cm DOPPLER AV Peak Velocity 149.0 cm/s LVOT Peak Velocity 103.0 cm/s AV Area Cont Eq vti 2.6 cm squared AV Area Cont Eq pk 2.4 cm squared MV Area PHT 4.9 cm squared Mitral E to A Ratio 0.9 MV E' Velocity 32.5 cm/s Mitral E to MV E' Ratio 8.5 Mitral E to LV E' Lateral Ratio 8.4 Mitral E to LV E' Septal Ratio 8.8 TR Peak Velocity 161.9 cm/s TR Peak Gradient 10.5 mmHg TR Mean Velocity 130.2 cm/s TR Mean Gradient 7.5 mmHg TR Velocity Time Integral 44.6 cm TV Peak E Velocity 66.7 cm/s Right Atrial Pressure 3.0 mmHg Pulmonary Artery Systolic Pressu 13.5 mmHg PV Peak Velocity 118.0 cm/s RV Acceleration Time 0.4 s RV Ejection Time 0.2 s RV AcT/ET 2.0 FINDINGS Left Ventricle Normal left ventricular size, systolic function and wall thickness, with no regional wall motion abnormalities. Grade I/IV diastolic dysfunction (abnormal relaxation filling pattern), normal to mildly elevated filling pressures. Left ventricular ejection fraction is estimated at 65 %. Right Ventricle Normal right ventricular size and systolic function. Normal right ventricular systolic pressure. Right Atrium The right atrium is normal in size. Left Atrium The left atrium is normal in size. Mitral Valve Structurally normal mitral valve without significant stenosis or prolapse. There is no mitral regurgitation. Aortic Valve Structurally normal trileaflet aortic valve. Trace aortic valve regurgitation. Tricuspid Valve Tricuspid valve not well visualized. Pulmonic Valve Pulmonic valve not well visualized. Pericardium Normal pericardium without effusion. Aorta Normal ascending aorta dimension. IVC Inferior vena cava not visualized. CONCLUSIONS Normal left ventricular size, systolic function and wall thickness, with no regional wall motion abnormalities. Grade I/IV diastolic dysfunction (abnormal relaxation filling pattern), normal to mildly elevated filling pressures. Left ventricular ejection fraction is estimated at 65 %. Structurally normal trileaflet aortic valve. Trace aortic valve regurgitation. Technically difficult study. No change from the study done December 25, 2016. Dr. Kj George MD (Electronically Signed) Final Date: 02 August 2022 08:55 S
--- NOTE | 2022-08-01 18:03 | P.HP_ITS ---
Providers/Chief Complaint Primary Care Provider: Steve Cuellar MD Chief Complaint: SOB/fluid retention on legs/arms History of Present Illness Stefany Bassett is a 62 year old female with PMHx of gastric bypass [id number], chronic migraines on botox injections , multiple syncopal episodes?, chronic O/H came in with c/o worsening swelling in the entire body , worsening sob with minimal exertion as well as worsening fatigue, according to the patient her SOB as well as her swelling has worsened acutely in the last couple of weeks, she has denied chest pain, fever, cough. Upon arrival in the ER She was worked up for above mention complain. Pertinent Imaging studies : Xray Chest : Moderate size right basal pleural effusion with areas of atelectasis in the middle and lower lobes the right lung. EKG: SINUS RHYTHM WITH SHORT KS INTERVAL, LOW QRS VOLTAGE IN EXTREMITY LEADS. Pertinent Labs : ; WBC : 10 H&H : 12/40 PLT ,: 249 Na ,138 K ,4 BUN/SCR : 12/0.7 , Albumin : 1.8 , AST : 58 ALT: 38 ALP: 265 , TSH : 0.43 , Free T4 : 0.73 Troponin: 26, 22, Pro BNP: 693 Review of Systems General: Reports: 10 or more systems reviewed and unremarkable except in HPI and below Const: Denies: fever(s), chills, body aches, change in appetite or diaphoresis Card: Denies: palpitations or leg pain with exertion Resp: Denies: productive cough, wheezing or pain on inspiration GI: Denies: abdominal pain, nausea, vomiting, diarrhea or constipation : Denies: flank pain Musc: Denies: back pain or extremity pain Medications/Allergies Home Medications Medication Instructions Recorded Confirmed Last Taken Type atorvastatin 10 mg tablet 10 mg PO DAILY 11/22/20 08/01/22 07/31/22 History cetirizine 10 mg capsule (All Day 10 mg PO DAILY PRN allergy symptoms 11/22/20 08/01/22 08/01/22 History Allergy (cetirizine)) calcium carbonate 600 mg calcium 600 mg PO DAILY 06/13/21 08/01/22 08/01/22 History (1,500 mg) tablet (Calcium) cholecalciferol (vitamin D3) 125 125 mcg PO DAILY 06/13/21 08/01/22 08/01/22 History mcg (5,000 unit) capsule mecobalamin (vitamin B12) 5,000 5,000 mcg PO DAILY 06/13/21 08/01/22 08/01/22 History mcg lozenge buspirone 30 mg tablet 30 mg PO BID #120 tabs 10/09/21 08/01/22 08/01/22 Rx rizatriptan 10 mg tablet (Maxalt) 10 mg PO Q2H PRN migraine headache 11/30/21 08/01/22 04/25/22 Rx #9 tabs alendronate 70 mg tablet (Fosamax) 70 mg PO Q7D 12/13/21 08/01/22 07/30/22 History gabapentin 800 mg tablet 800 mg PO TID pain 02/08/22 08/01/22 08/01/22 History midodrine 10 mg tablet 10 mg PO TID #90 tabs 02/16/22 08/01/22 08/01/22 Rx hydrocodone 5 mg-acetaminophen 325 1 tab PO Q6H PRN pain 3 days #7 04/03/22 08/01/22 08/01/22 Rx mg tablet tabs duloxetine 60 mg capsule,delayed 60 mg PO DAILY #30 caps 04/17/22 08/01/22 08/01/22 Rx release (Cymbalta) pantoprazole 40 mg tablet,delayed 40 mg PO DAILY 30 days #30 tabs 04/26/22 08/01/22 08/01/22 Rx release (Protonix) droxidopa 100 mg capsule (Northera) 100 mg PO TID #90 caps 07/23/22 08/01/22 Unknown Rx fludrocortisone 0.1 mg tablet 0.1 mg PO DAILY #30 tabs 07/24/22 08/01/22 08/01/22 Rx furosemide 40 mg tablet (Lasix) 40 mg PO BID 08/01/22 08/01/22 08/01/22 History levothyroxine 125 mcg tablet 125 mcg PO DAILY 08/01/22 08/01/22 08/01/22 History mirtazapine 15 mg tablet 15 mg PO BEDTIME 08/01/22 08/01/22 07/31/22 History potassium chloride 20 mEq 40 meq PO BID 08/01/22 08/01/22 08/01/22 History tablet,extended release sucralfate 1 gram tablet 1 g PO BID 08/01/22 08/01/22 08/01/22 History zonisamide 25 mg capsule 50 mg PO BEDTIME 08/01/22 08/01/22 Unknown History Allergies Allergy/AdvReac Type Severity Reaction Status Date / Time lithium Allergy Intermediate NAUSEA AND Verified 07/27/22 06:16 VOMITING adhesive tape AdvReac Intermediate ALGY-Rash Verified 07/27/22 06:16 PFSH Acute PFSH: Medical History Acute lumbar radiculopathy Borderline personality disorder Chronic lumbar radiculopathy Chronic migraine without aura, intractable, with status migrainosus DDD (degenerative disc disease), lumbar Encounter for long-term (current) use of NSAIDs Encounter for long-term opiate analgesic use Generalized anxiety disorder Major depression, recurrent, full remission Marginal ulcer Minor neurocognitive disorder Post-traumatic stress disorder, chronic Pouchitis Psychiatric care Surgical History History of 2 sections History of carpal tunnel surgery of left wrist Hx of appendectomy Hx of bilateral salpingectomy Hx of cholecystectomy Hx of colectomy bowel obstruction 11/2012 Hx of gastric bypass Hx of hernia repair Hx of hysterectomy Hx of knee surgery Right Hx of shoulder surgery Left Hx of tubal ligation Family History Other CAD (coronary artery disease) Cancer Diabetes Hyperlipidemia Hypertension Stroke Social History Smoking and tobacco status: never smoked Second hand smoke exposure: No Alcohol intake: never Adopted: No Lives independently: Yes Household members: spouse and other Details: Grandson Housing: House Marital status: Marital status details: 27 years Number of children: 2 Number of grandchildren: 1 Highest education level completed: Associate Degree: Occupational, Technical, Vocational Program Education level details: Business service: No Current occupational status: disabled Current occupational exposures/hazards: No Pets and animals: Yes Pets & animals: cat(s), dog(s) and farm animals Farm Animals: other History of recent travel: No Leisure activites: other Leisure activities details: watch TV Sexually active: Yes Current gender identity: Female Alexandra/Pentecostal: Episcopalian Special alexandra needs: No Agree to transfusion: Yes Financial difficulty paying for basics: Very Hard Vitals/I&O/Wt Last Vital Signs Temp 98.8 F 08/01/22 17:30 Pulse 100 08/01/22 17:30 Resp 12 08/01/22 17:30 BP 114/93 08/01/22 17:30 Pulse Ox 97 08/01/22 17:30 O2 Del Method 08/01/22 17:30 08/01/22 08/01/22 08/01/22 06:59 14:59 22:59 Output Total 750 / 750 Balance -750 / -750 Weight last 48 hrs Weight 56.699 kg Physical Exam Const: COMMON NORMALS: patient oriented x3 Resp: COMMON NORMALS: normal respiratory effort, No retractions and No use of accessory muscles Cardio: COMMON NORMALS: regular rate, regular rhythm, S1 normal heart sound present, S2 normal heart sound present, No gallops present (Cardio), No murmurs present (Cardio), No rub (Cardio) and Peripheral pulses 2+ throughout RATE: regular rate RHYTHM: regular rhythm HEART SOUNDS: S1 normal heart sound present and S2 normal heart sound present PERIPHERAL PULSES: Peripheral pulses 2+ throughout GI: COMMON NORMALS: Normal to inspection, nondistended, normoactive bowel sounds present, Soft to palpation, non-tender, No hepatosplenomegaly present and no masses AUSCULTATION: Yes normoactive bowel sounds PALPATION: Yes Soft to palpation and Yes No hepatosplenomegaly present RECTAL EXAM: deferred Extremity: NARRATIVE EXTREMITY EXAM: 2 + B/L PITTING EDEMA Present in both lower extremity Neuro: COMMON NORMALS: patient oriented x3 Data : 08/01/22 14:32 08/01/22 16:11 A&P Assessment and plan (1) Volume overload: Status: Acute (2) Hypoalbuminemia: Status: Acute (3) CHF exacerbation: Status: Acute (4) Orthostatic hypotension: Status: Acute (5) Chronic migraine without aura, intractable, with status migrainosus: Status: Acute Plan 62 year old female with PMHx of gastric bypass [id number], chronic migraines on botox injections , multiple syncopal episodes?, chronic O/H came in with c/o worsening swelling in the entire body , worsening sob with minimal exertion as well as worsening fatigue, according to the patient her SOB as well as her swelling has worsened acutely in the last couple of weeks, she has denied chest pain, fever, cough. Assessment : Volume Overload Migraine Chronic Orthostatic Hypotension Heart Failure Rt Sided Pleural Effusion Plan : Follow 2D ECho Urine Analysis Random Urine Protein and Creatinine ( UPCR Ration ) Stop Florinef, continue midodrine Lasix 60 mg I.V BID Albumin TID Intake / output charting K>4, MG>2 Regular diet with protein supplements DVT PPX: On Lovenox Code Status :Full Code Attestations Medical Necessity Statement*: Patient needs to be for management of fluid overload, anticipated LOS greater then 2 midnights. Coding Level of Care Code Acute Communications Consultant for Chg Fwd Exam Expanded Problem Focused Diagnoses Volume overload E87.70 Hypoalbuminemia E88.09 CHF exacerbation I50.9 Orthostatic hypotension I95.1 Chronic migraine without aura, intractable, with status migrainosus G43.711
[2022-08-01] MEDS: enoxaparin 40 mg/0.4 mL Syringe SUBCUT (20:07)
[2022-08-01 20:09] VITALS: BP 119/82; PULSE 100; RESP 16; TEMP 36.5; O2SAT 97
[2022-08-01 20:11] VITALS: BP 119/82; PULSE 100; RESP 16; TEMP 36.5; O2SAT 97
[2022-08-01 21:14] VITALS: BMI 22.8
[2022-08-01] MEDS: mirtazapine 15 mg Tablet PO (21:56)
[2022-08-01] MEDS: BuSPIRONE 10 mg Tablet 30 MG PO (21:56)
[2022-08-02] VITALS (12 sets, daily range): BP systolic 91–122; BP diastolic 48–75; PULSE 57–94; RESP 15–20; TEMP 36.6–37.1; O2SAT 88–93
[2022-08-02] MEDS: HYDROcodone-acetaminophen 5-325 mg Tablet 1 TAB PO ×3 (00:49→20:46)
[2022-08-02 02:20] LABS: Add Urine Microscopic? NO; Charge for UA Resulting for Rev
[2022-08-02 02:24] LABS: Bilirubin Urine Neg (Negative); Blood Urine Neg (Negative); Glucose Urine UA Norm (Normal); Ketones Urine Negative (Negative); Leukocyte Esterase Urine Negative (Negative); Nitrate Urine Negative (Negative); Protein Urine Neg (Negative); Urine Appearance Clear (CLEAR); Urine Color Yellow (Yellow); Urobilinogen Urine Norm (Negative); pH Urine 5 (5-7)
[2022-08-02 02:40] LABS: Creatinine Urine, Random 13 mg/dL (28-217)
[2022-08-02 02:46] LABS: Urine Protein Random 4 mg/dL
[2022-08-02 04:57] LABS: Basophils % 0.5 %; Eosinophils % 0.6 %; Lymphocytes # 3.3 10^3/uL (0.8-4.8); Lymphocytes % 51.5 %; Mean Corpuscular HGB Conc 31.3 g/dL (30.0-36.0); Mean Corpuscular Hemoglobin 35.3 pg (28.0-34.0); Mean Corpuscular Volume 113.1 fl (81-99); Mean Platelet Volume 10.3 fL (7.4-10.4); Monocytes # 0.5 10^3/uL (0.2-0.9); Monocytes % 8.2 %; Neutrophils # 2.47 10^3/uL (1.8-7.7); Neutrophils % 38.7 %; Nucleated Red Blood Cells % 0 %; Platelet Count 185 10^3/cmm (130-400); Red Blood Count 2.83 10^6/uL (4.1-5.3); Red Cell Distribution Width 15.9 % (12.1-15.1); White Blood Count 6.4 10^3/uL (4.0-10.0)
[2022-08-02 05:37] LABS: Alanine Aminotransferase 29 U/L (0-33); Alkaline Phosphatase 221 U/L (35-105); Anion Gap 11.4 (5-19); Aspartate Amino Transferase 46 U/L (0-32); Blood Urea Nitrogen 11 mg/dL (8-23); Calcium 7.6 mg/dL (8.5-10.5); Carbon Dioxide 26 mmol/L (22-29); Chloride 104 mmol/L (98-107); Globulin 1.8 g/dL (1.3-4.6); Glomerular Filtration Rate 84.8 mL/min (90-130); Glucose 73 mg/dL (65-115); Magnesium 1.8 mg/dL (1.7-2.3); Osmolality Calculated 286 mOsm/kg (285-295); Phosphorus 4.4 mg/dL (2.5-4.5); Sodium 139 mmol/L (136-145); Total Bilirubin 0.6 mg/dL (0.15-1.2); Total Protein 3.8 g/dL (6.6-8.7)
[2022-08-02 06:18] LABS: Potassium 2.4 mmol/L (3.5-5.1)
[2022-08-02] MEDS: lidocaine 1% 5 ML in potassium chloride premix 100 ML 25 ML IV (09:48)
[2022-08-02] MEDS: FUROsemide 10 mg/mL SDV 10mL 60 MG IVP ×2 (09:49→17:31)
[2022-08-02] MEDS: levothyroxine 125 mcg Tablet PO (09:49)
[2022-08-02] MEDS: midodrine 5 mg TABLET 10 MG PO ×2 (09:49→15:08)
[2022-08-02] MEDS: duloxetine 60 mg Capsule PO (09:49)
[2022-08-02] MEDS: BuSPIRONE 10 mg Tablet 30 MG PO ×2 (09:50→20:06)
[2022-08-02] MEDS: atorvastatin 40 mg Tablet 10 MG PO (09:50)
[2022-08-02] MEDS: pantoprazole DR 40 mg Tablet PO (09:50)
[2022-08-02] MEDS: cholecalciferol (vitamin D3) 5,000 unit Tablet 5000 UNIT PO (09:50)
[2022-08-02] MEDS: potassium chloride ER 20 mEq Tablet 40 MEQ PO ×2 (09:51→17:31)
--- NOTE | 2022-08-02 10:38 | P.PN_ITS ---
Subjective Subjective: Patient was seen and examined this morning states he feels better, Shortness of breath has improved good urine output overnight, total of 3.4 Ls. Medications: Medication Review Details: Generic Name Dose Route Start Last Admin Trade Name Kari PRN Reason Stop Dose Admin Hydrocodone Bitart /Acetaminophen 1 tab 08/02/22 00:12 08/02/22 10:18 Hydrocodone-Acet aminophen 5-325 Mg Tablet PO 1 tab Q6H PRN Administration PAIN Atorvastatin Calci um 10 mg 08/02/22 09:00 08/02/22 09:50 Atorvastatin 40 Mg Tablet PO 10 mg DAILY PRINCE Administration Buspirone HCl 30 mg 08/01/22 21:00 08/02/22 09:50 Buspirone 10 Mg Tablet PO 30 mg BID@0900,2100 PRINCE Administration Duloxetine HCl 60 mg 08/02/22 09:00 08/02/22 09:49 Duloxetine 60 Mg Capsule PO 60 mg DAILY PRINCE Administration Enoxaparin Sodium 40 mg 08/01/22 18:30 08/01/22 20:07 Enoxaparin 40 Mg /0.4 Ml Syringe SUBCUT 40 mg Q24H PRINCE Administration Furosemide 60 mg 08/02/22 09:00 08/02/22 09:49 Furosemide 10 Mg /Ml Sdv 10ml IVP 60 mg BID PRINCE Administration Albumin Human 25 gm in 100 mls @ 60 mls/hr 08/01/22 20:00 08/02/22 06:45 Albumin IV Infused Q8H PRINCE Infusion Lidocaine HCl 5 ml / Potassium 105 mls @ 25 mls/ hr 08/02/22 08:30 08/02/22 09:48 Chloride IV 08/02/22 12:41 25 mls/hr ONCE ONE Administration Levothyroxine Sodi um 125 mcg 08/02/22 09:00 08/02/22 09:49 Levothyroxine 12 5 Mcg Tablet PO 125 mcg DAILY PRINCE Administration Midodrine 10 mg 08/01/22 21:00 08/02/22 09:49 Midodrine 5 Mg T ablet PO 10 mg TID PRINCE Administration Mirtazapine 15 mg 08/01/22 21:00 08/01/22 21:56 Mirtazapine 15 M g Tablet PO 15 mg BEDTIME PRINCE Administration Non-Formulary Medi cation 600 mg 08/02/22 09:00 08/02/22 10:12 Calcium Carbonat e [Calcium 600] PO Not Given DAILY PRINCE Non-Formulary Medi cation 100 mg 08/01/22 21:00 08/02/22 10:13 Droxidopa [North era] PO Not Given TID PRINCE Pantoprazole Sodiu m 40 mg 08/02/22 09:00 08/02/22 09:[address] 40 Mg Tablet PO 40 mg DAILY PRINCE Administration Potassium Chloride 40 meq 08/02/22 09:00 08/02/22 09:51 Potassium Chlori de Er 20 Meq Table t PO 40 meq BID PRINCE Administration Vitamin D 5,000 unit 08/02/22 09:00 08/02/22 09:50 Cholecalciferol (Vitamin D3) 5,000 Unit Tablet PO 5,000 unit DAILY PRINCE Administration Vitals/I&O/Wt Last Vital Signs Temp 98.0 F 08/02/22 07:43 Pulse 91 08/02/22 07:44 Resp 16 08/02/22 07:43 BP 100/62 08/02/22 07:43 Pulse Ox 92 08/02/22 07:44 O2 Del Method 08/02/22 07:44 08/01/22 08/02/22 08/02/22 22:59 06:59 14:59 Intake Total 360 / 360 440 / 800 240 / 240 Output Total 950 / 950 1600 / 2550 900 / 900 Balance -590 / -590 -1160 / -1750 -660 / -660 Weight last 48 hrs Weight 56.699 kg Weight 56.699 kg Physical Exam Const: COMMON NORMALS: patient oriented x3 Resp: COMMON NORMALS: normal respiratory effort, No retractions and No use of accessory muscles OTHER: Diminished air entry in lower right lung field Cardio: COMMON NORMALS: regular rate, regular rhythm, S1 normal heart sound present, S2 normal heart sound present, No gallops present (Cardio), No murmurs present (Cardio), No rub (Cardio) and Peripheral pulses 2+ throughout RATE: regular rate RHYTHM: regular rhythm HEART SOUNDS: S1 normal heart sound present and S2 normal heart sound present PERIPHERAL PULSES: Peripheral pulses 2+ throughout GI: COMMON NORMALS: Normal to inspection, nondistended, normoactive bowel sounds present, Soft to palpation, non-tender, No hepatosplenomegaly present and no masses AUSCULTATION: Yes normoactive bowel sounds PALPATION: Yes Soft to palpation and Yes No hepatosplenomegaly present RECTAL EXAM: deferred Extremity: NARRATIVE EXTREMITY EXAM: 2 + B/L PITTING EDEMA Present in both lower extremity Neuro: COMMON NORMALS: patient oriented x3 Urinary Catheter Management: Dodd: Cath Placed During This Visit: yes Reason for Continuing Indwelling Catheter: Other Urinary Catheter Date of Insertion: 08/01/22 Urinary Catheter Time of Insertion: 22:05 Data : 08/02/22 04:37 08/02/22 04:37 A&P Assessment and plan (1) Volume overload: Status: Acute (2) Hypoalbuminemia: Status: Acute (3) CHF exacerbation: Status: Acute (4) Orthostatic hypotension: Status: Acute (5) Chronic migraine without aura, intractable, with status migrainosus: Status: Acute (6) Hypokalemia: Status: Acute Plan 62 year old female with PMHx of gastric bypass [id number], chronic migraines on botox injections , multiple syncopal episodes?, chronic O/H came in with c/o worsening swelling in the entire body , worsening sob with minimal exertion as well as worsening fatigue, according to the patient her SOB as well as her swelling has worsened acutely in the last couple of weeks, she has denied chest pain, fever, cough. Assessment : Volume Overload Migraine Chronic Orthostatic Hypotension HFpEF Rt Sided Pleural Effusion Plan : 2D ECho : Normal left ventricular size, systolic function and wall ?thickness, with no regional wall motion abnormalities. Grade ?I/IV diastolic dysfunction (abnormal relaxation filling ?pattern), normal to mi ldly elevated filling pressures. Left ?ventricular ejection fraction is estimated at 65 %. Structurally normal trileaflet aortic valve. Trace aortic valve regurgitation. Urine Analysis : Clean Random Urine Protein and Creatinine ( UPCR Ration ) : 0.3g/day Stop Florinef, continue midodrine Lasix 60 mg I.V BID Albumin TID Intake / output charting K>4, MG>2 Regular diet with protein supplements DVT PPX: On Lovenox Code Status :Full Code Attestations Medical Necessity Statement*: Patient is to be in hospital for continued diuresis, volume overload, severe hypoalbuminemia. 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
--- NOTE | 2022-08-02 10:44 | PC.CHAP ---
Pastoral Care Encounter/Spiritual Assessment Type of Contact [] Declined eyeglass lens grinder visit [] Patient/Family/Request visit [] Outpatient visit [] Follow-up visit [] Physician referral [] Code/Alert [x] Routine visit [] Staff referral [] Actively dying [] Patient sleeping [] Family support [] [] Out of room [] Palliative care [] [x] Receiving care in room [] Pre-surgical visit [] Trauma [] Long length of stay [] ICU visit [] Other: Relational/Emotional Strength [x] Patient feels connected with others/family/visitors/staff [] Distress [] Loneliness/isolation [] Abandonment Spirituality of Patient [x] Person of Alexandra [] Attends Congregation of their Alexandra [x] Believes in Prayer [] Reads Bible or Pentecostalism materials [] There are Spiritual issues to be addressed Retail Key Holder Interventions [x] Prayer [x] Active listening [x] Non-anxious presence [x] Spiritual/emotional support [] Crisis/trauma care [x] Spiritual counseling [] Bereavement support [] Provided bereavement packet [] Provided Bible/devotional materials [] Provided toy/stuffed animal, coloring book to patient or family member [] Provided Communion [] Anointing/[place] [] Salvation [x] Completed spiritual assessment [] Other: Impact on Illness or Injury [] Angry [] Fearful [x] Anxious [] Often cries [] Exhaustion [] Unable to work [] Unable to attend mu-ism [] Unable to walk/stand [] Unable to read [] Unable to drive [] Unable to eat/drink [] Unable to sleep [] Unable to be with family [] Patient intubated [] Other: Summary smoe blockage waiting on out come from tests has a postive attitude feels good well go home at some point Time spent with patient 10 mins
[2022-08-02] MEDS: acetaminophen 325 mg Tablet 650 MG PO (16:10)
[2022-08-02] MEDS: enoxaparin 40 mg/0.4 mL Syringe SUBCUT (17:32)
[2022-08-02] MEDS: gabapentin 400 mg Capsule 800 MG PO (20:06)
[2022-08-02] MEDS: mirtazapine 15 mg Tablet PO (20:06)
[2022-08-03] VITALS (8 sets, daily range): BP systolic 90–113; BP diastolic 59–71; PULSE 89–99; RESP 16–23; TEMP 36.6–37; O2SAT 87–93
[2022-08-03 05:12] LABS: Basophils % 0.4 %; Eosinophils % 0.6 %; Hematocrit 27.4 % (37.0-47.0); Hemoglobin 8.9 g/dL (11.5-15.3); Lymphocytes # 2.4 10^3/uL (0.8-4.8); Lymphocytes % 51.6 %; Mean Corpuscular HGB Conc 32.5 g/dL (30.0-36.0); Mean Corpuscular Hemoglobin 35.7 pg (28.0-34.0); Mean Platelet Volume 10.4 fL (7.4-10.4); Monocytes # 0.4 10^3/uL (0.2-0.9); Monocytes % 9.5 %; Neutrophils # 1.74 10^3/uL (1.8-7.7); Neutrophils % 37.5 %; Nucleated Red Blood Cells % 0 %; Platelet Count 164 10^3/cmm (130-400); Red Blood Count 2.49 10^6/uL (4.1-5.3); Red Cell Distribution Width 16.2 % (12.1-15.1); White Blood Count 4.7 10^3/uL (4.0-10.0)
[2022-08-03 05:36] LABS: Alanine Aminotransferase 20 U/L (0-33); Albumin Level 2.7 g/dL (3.5-5.2); Alkaline Phosphatase 167 U/L (35-105); Anion Gap 11.3 (5-19); Aspartate Amino Transferase 33 U/L (0-32); Blood Urea Nitrogen 9 mg/dL (8-23); Calcium 7.2 mg/dL (8.5-10.5); Carbon Dioxide 34 mmol/L (22-29); Chloride 104 mmol/L (98-107); Globulin 1.2 g/dL (1.3-4.6); Glomerular Filtration Rate 101.3 mL/min (90-130); Glucose 68 mg/dL (65-115); Osmolality Calculated 301 mOsm/kg (285-295); Sodium 147 mmol/L (136-145); Total Bilirubin 0.8 mg/dL (0.15-1.2); Total Protein 3.9 g/dL (6.6-8.7)
[2022-08-03 05:49] LABS: Potassium 2.3 mmol/L (3.5-5.1)
[2022-08-03] MEDS: lidocaine 1% 5 ML in potassium chloride premix 100 ML 25 ML IV (09:59)
[2022-08-03] MEDS: potassium chloride ER 20 mEq Tablet 40 MEQ PO ×2 (10:06→17:28)
[2022-08-03] MEDS: BuSPIRONE 10 mg Tablet 30 MG PO ×2 (10:06→20:26)
[2022-08-03] MEDS: cholecalciferol (vitamin D3) 5,000 unit Tablet 5000 UNIT PO (10:07)
[2022-08-03] MEDS: levothyroxine 125 mcg Tablet PO (10:07)
[2022-08-03] MEDS: pantoprazole DR 40 mg Tablet PO (10:07)
[2022-08-03] MEDS: gabapentin 400 mg Capsule 800 MG PO ×3 (10:07→20:26)
[2022-08-03] MEDS: atorvastatin 40 mg Tablet 10 MG PO (10:07)
[2022-08-03] MEDS: midodrine 5 mg TABLET 10 MG PO ×2 (10:07→16:13)
[2022-08-03] MEDS: HYDROcodone-acetaminophen 5-325 mg Tablet 1 TAB PO ×2 (10:23→20:27)
[2022-08-03] MEDS: FUROsemide 10 mg/mL SDV 4mL 40 MG IVP (10:24)
[2022-08-03] MEDS: duloxetine 60 mg Capsule PO (10:24)
--- NOTE | 2022-08-03 14:41 | P.PN_ITS ---
Subjective Subjective: Patient was seen and examined this morning was complaining of leg cramps, continue to have good urine output, slightly hypernatremic today, currently she 7.6 Ls negative. Medications: Medication Review Details: Generic Name Dose Route Start Last Admin Trade Name Freq PRN Reason Stop Dose Admin Acetaminophen 650 mg 08/01/22 17:52 08/02/22 16:10 Acetaminophen 32 5 Mg Tablet PO 650 mg Q6H PRN Administration Mild/Mod Pain Or Temp >/= 101 Hydrocodone Bitart /Acetaminophen 1 tab 08/02/22 00:12 08/03/22 10:23 Hydrocodone-Acet aminophen 5-325 Mg Tablet PO 1 tab Q6H PRN Administration PAIN Atorvastatin Calci um 10 mg 08/02/22 09:00 08/03/22 10:07 Atorvastatin 40 Mg Tablet PO 10 mg DAILY PRINCE Administration Buspirone HCl 30 mg 08/01/22 21:00 08/03/22 10:06 Buspirone 10 Mg Tablet PO 30 mg BID@0900,2100 PRINCE Administration Duloxetine HCl 60 mg 08/02/22 09:00 08/03/22 10:24 Duloxetine 60 Mg Capsule PO 60 mg DAILY PRINCE Administration Enoxaparin Sodium 40 mg 08/01/22 18:30 08/02/22 17:32 Enoxaparin 40 Mg /0.4 Ml Syringe SUBCUT 40 mg Q24H PRINCE Administration Gabapentin 800 mg 08/02/22 21:00 08/03/22 10:07 Gabapentin 400 M g Capsule PO 800 mg TID PRINCE Administration Albumin Human 25 gm in 100 mls @ 60 mls/hr 08/01/22 20:00 08/03/22 13:31 Albumin IV Infused Q8H PRINCE Infusion Levothyroxine Sodi um 125 mcg 08/02/22 09:00 08/03/22 10:07 Levothyroxine 12 5 Mcg Tablet PO 125 mcg DAILY PRINCE Administration Midodrine 10 mg 08/01/22 21:00 08/03/22 10:07 Midodrine 5 Mg T ablet PO 10 mg TID PRINCE Administration Mirtazapine 15 mg 08/01/22 21:00 08/02/22 20:06 Mirtazapine 15 M g Tablet PO 15 mg BEDTIME PRINCE Administration Non-Formulary Medi cation 600 mg 08/02/22 09:00 08/03/22 10:09 Calcium Carbonat e [Calcium 600] PO Not Given DAILY PRINCE Non-Formulary Medi cation 100 mg 08/01/22 21:00 08/03/22 10:09 Droxidopa [North era] PO Not Given TID PRINCE Pantoprazole Sodiu m 40 mg 08/02/22 09:00 08/03/22 10:[address] 40 Mg Tablet PO 40 mg DAILY PRINCE Administration Potassium Chloride 40 meq 08/02/22 09:00 08/03/22 10:06 Potassium Chlori de Er 20 Meq Table t PO 40 meq BID PRINCE Administration Vitamin D 5,000 unit 08/02/22 09:00 08/03/22 10:07 Cholecalciferol (Vitamin D3) 5,000 Unit Tablet PO 5,000 unit DAILY PRINCE Administration Vitals/I&O/Wt Last Vital Signs Temp 98.4 F 08/03/22 12:00 Pulse 96 08/03/22 12:00 Resp 16 08/03/22 12:00 BP 103/68 08/03/22 12:00 Pulse Ox 90 08/03/22 12:00 O2 Del Method 08/03/22 12:00 08/02/22 08/03/22 08/03/22 22:59 06:59 14:59 Intake Total 440 / 1145 100 / 1245 565 / 565 Output Total 4150 / 5050 1800 / 6850 900 / 900 Balance -3710 / -3905 -1700 / -5605 -335 / -335 Weight last 48 hrs Weight 56.699 kg Physical Exam Const: COMMON NORMALS: patient oriented x3 Resp: COMMON NORMALS: normal respiratory effort, No retractions and No use of accessory muscles OTHER: Diminished air entry in lower right lung field, bilateral basal crackles both lung field Cardio: COMMON NORMALS: regular rate, regular rhythm, S1 normal heart sound present, S2 normal heart sound present, No gallops present (Cardio), No murmurs present (Cardio), No rub (Cardio) and Peripheral pulses 2+ throughout RATE: regular rate RHYTHM: regular rhythm HEART SOUNDS: S1 normal heart sound present and S2 normal heart sound present PERIPHERAL PULSES: Peripheral pulses 2+ throughout GI: COMMON NORMALS: Normal to inspection, nondistended, normoactive bowel sounds present, Soft to palpation, non-tender, No hepatosplenomegaly present and no masses AUSCULTATION: Yes normoactive bowel sounds PALPATION: Yes Soft to palpation and Yes No hepatosplenomegaly present RECTAL EXAM: deferred Extremity: NARRATIVE EXTREMITY EXAM: 2 + B/L PITTING EDEMA Present in both lower extremity Neuro: COMMON NORMALS: patient oriented x3 Urinary Catheter Management: Dodd: Cath Placed During This Visit: yes Reason for Continuing Indwelling Catheter: Other Urinary Catheter Date of Insertion: 08/01/22 Urinary Catheter Time of Insertion: 22:05 Data : 08/03/22 04:48 08/03/22 04:48 A&P Assessment and plan (1) Volume overload: Status: Acute (2) Hypoalbuminemia: Status: Acute (3) CHF exacerbation: Status: Acute (4) Orthostatic hypotension: Status: Acute (5) Chronic migraine without aura, intractable, with status migrainosus: Status: Acute (6) Hypokalemia: Status: Acute Plan 62 year old female with PMHx of gastric bypass [id number], chronic migraines on botox injections , multiple syncopal episodes?, chronic O/H came in with c/o worsening swelling in the entire body , worsening sob with minimal exertion as well as worsening fatigue, according to the patient her SOB as well as her swelling has worsened acutely in the last couple of weeks, she has denied chest pain, fever, cough. Assessment : Volume Overload Migraine Chronic Orthostatic Hypotension HFpEF Rt Sided Pleural Effusion Plan : 2D ECho : Normal left ventricular size, systolic function and wall ?thickness, with no regional wall motion abnormalities. Grade ?I/IV diastolic dysfunction (abnormal relaxation filling ?pattern), normal to mildly elevated filling pressures. Left ?ventricular ejection fraction is estimated at 65 %. Structurally normal trileaflet aortic valve. Trace aortic valve regurgitation. Urine Analysis : Clean Random Urine Protein and Creatinine ( UPCR Ration ) : 0.3g/day Stop Florinef, continue midodrine Lasix 40 mg I.V BID Albumin TID Intake / output charting K>4, MG>2 Regular diet with protein supplements DVT PPX: On Lovenox Code Status :Full Code Attestations Medical Necessity Statement*: In hospital for continued IV diuresis. 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
[2022-08-03] MEDS: enoxaparin 40 mg/0.4 mL Syringe SUBCUT (17:28)
[2022-08-03] MEDS: mirtazapine 15 mg Tablet PO (20:27)
[2022-08-04] VITALS (9 sets, daily range): BP systolic 93–128; BP diastolic 62–86; PULSE 86–104; RESP 16–20; TEMP 36.5–37.4; O2SAT 90–96
[2022-08-04] MEDS: HYDROcodone-acetaminophen 5-325 mg Tablet 1 TAB PO ×2 (04:17→20:41)
[2022-08-04 05:31] LABS: Alanine Aminotransferase 20 U/L (0-33); Albumin Level 3.2 g/dL (3.5-5.2); Alkaline Phosphatase 152 U/L (35-105); Blood Urea Nitrogen 9 mg/dL (8-23); Calcium 7.4 mg/dL (8.5-10.5); Carbon Dioxide 30 mmol/L (22-29); Chloride 105 mmol/L (98-107); Globulin 1.1 g/dL (1.3-4.6); Glomerular Filtration Rate 161.7 mL/min (90-130); Glucose 66 mg/dL (65-115); Osmolality Calculated 305 mOsm/kg (285-295); Sodium 149 mmol/L (136-145); Total Bilirubin 1.3 mg/dL (0.15-1.2); Total Protein 4.3 g/dL (6.6-8.7)
[2022-08-04 05:33] LABS: Anion Gap 17.7 (5-19); Aspartate Amino Transferase 42 U/L (0-32); Potassium 3.7 mmol/L (3.5-5.1)
[2022-08-04 06:15] LABS: Basophils % 0.4 %; Eosinophils % 0.4 %; Hematocrit 28.4 % (37.0-47.0); Hemoglobin 9.1 g/dL (11.5-15.3); Lymphocytes # 2.5 10^3/uL (0.8-4.8); Lymphocytes % 49.8 %; Mean Corpuscular Hemoglobin 36.1 pg (28.0-34.0); Mean Corpuscular Volume 112.7 fl (81-99); Mean Platelet Volume 10.1 fL (7.4-10.4); Monocytes # 0.6 10^3/uL (0.2-0.9); Monocytes % 11.2 %; Neutrophils # 1.92 10^3/uL (1.8-7.7); Neutrophils % 37.8 %; Nucleated Red Blood Cells % 0 %; Platelet Count 159 10^3/cmm (130-400); Red Blood Count 2.52 10^6/uL (4.1-5.3); Red Cell Distribution Width 16.7 % (12.1-15.1); White Blood Count 5.1 10^3/uL (4.0-10.0)
[2022-08-04] MEDS: cholecalciferol (vitamin D3) 5,000 unit Tablet 5000 UNIT PO (08:26)
[2022-08-04] MEDS: potassium chloride ER 20 mEq Tablet 40 MEQ PO ×2 (08:26→17:11)
[2022-08-04] MEDS: midodrine 5 mg TABLET 10 MG PO ×3 (08:26→17:11)
[2022-08-04] MEDS: duloxetine 60 mg Capsule PO (08:26)
[2022-08-04] MEDS: pantoprazole DR 40 mg Tablet PO (08:27)
[2022-08-04] MEDS: FUROsemide 10 mg/mL SDV 4mL 40 MG IVP (08:27)
[2022-08-04] MEDS: levothyroxine 125 mcg Tablet PO (08:27)
[2022-08-04] MEDS: gabapentin 400 mg Capsule 800 MG PO ×3 (08:28→20:38)
[2022-08-04] MEDS: atorvastatin 40 mg Tablet 10 MG PO (08:28)
[2022-08-04] MEDS: BuSPIRONE 10 mg Tablet 30 MG PO ×2 (08:29→20:36)
--- NOTE | 2022-08-04 08:47 | XRR_ITS ---
PROCEDURE INFORMATION: Exam: XR Chest Exam date and time: 08/04/2022 11:10 AM Age: 62 years old Clinical indication: Other: Pleural effusion; Prior surgery; Surgery date: 6+ months; Surgery type: Loop recorder; Additional info: RT pleural effusion assesment TECHNIQUE: Imaging protocol: Radiologic exam of the chest. Views: 1 view. COMPARISON: CR XR chest 1V portable [id number] 08/01/2022 2:01 PM FINDINGS: Lungs: Interstitial congestion is seen in the left lower lobe. Pleural spaces: Unremarkable. No pleural effusion. No pneumothorax. Heart/Mediastinum: Unremarkable. No cardiomegaly. Bones/joints: Unremarkable. There is a metallic pin in the left humeral head XR/XR chest 1V portable [id number] IMPRESSION: 1. Left lower lobe interstitial congestion 2. Metallic pin left humeral a head
--- NOTE | 2022-08-04 09:15 | PC.SOCIAL ---
Pg 2 IMM Explained to pt Pg 2 IMM. No questions voiced. Provided pt a copy. Initialed, dated, & timed a copy & placed in chart.
[2022-08-04] MEDS: acetaminophen 325 mg Tablet 650 MG PO (11:26)
[2022-08-04] MEDS: dextrose 5% 1,000 ML 30 ML IV (11:27)
[2022-08-04] MEDS: ondansetron 2 mg/ML SDV 2 mL 4 MG IVP (12:47)
--- NOTE | 2022-08-04 15:54 | P.PN_ITS ---
Subjective Subjective: Patient was seen and examined this morning was felling tired, serum sodium has trended up, will stop I.V lasix , she is slightly over diuresed. Will start her on gentle I.V Hydration with D5W.Continue to have good urine output, anasarca has significantly improved. Xray chest done today has shown significant improvement in rt sided pleural effusion Medications: Medication Review Details: Generic Name Dose Route Start Last Admin Trade Name Freq PRN Reason Stop Dose Admin Acetaminophen 650 mg 08/01/22 17:52 08/02/22 16:10 Acetaminophen 32 5 Mg Tablet PO 650 mg Q6H PRN Administration Mild/Mod Pain Or Temp >/= 101 Hydrocodone Bitart /Acetaminophen 1 tab 08/02/22 00:12 08/03/22 10:23 Hydrocodone-Acet aminophen 5-325 Mg Tablet PO 1 tab Q6H PRN Administration PAIN Atorvastatin Calci um 10 mg 08/02/22 09:00 08/03/22 10:07 Atorvastatin 40 Mg Tablet PO 10 mg DAILY PRINCE Administration Buspirone HCl 30 mg 08/01/22 21:00 08/03/22 10:06 Buspirone 10 Mg Tablet PO 30 mg BID@0900,2100 PRINCE Administration Duloxetine HCl 60 mg 08/02/22 09:00 08/03/22 10:24 Duloxetine 60 Mg Capsule PO 60 mg DAILY PRINCE Administration Enoxaparin Sodium 40 mg 08/01/22 18:30 08/02/22 17:32 Enoxaparin 40 Mg /0.4 Ml Syringe SUBCUT 40 mg Q24H PRINCE Administration Gabapentin 800 mg 08/02/22 21:00 08/03/22 10:07 Gabapentin 400 M g Capsule PO 800 mg TID PRINCE Administration Albumin Human 25 gm in 100 mls @ 60 mls/hr 08/01/22 20:00 08/03/22 13:31 Albumin IV Infused Q8H PRINCE Infusion Levothyroxine Sodi um 125 mcg 08/02/22 09:00 08/03/22 10:07 Levothyroxine 12 5 Mcg Tablet PO 125 mcg DAILY PRINCE Administration Midodrine 10 mg 08/01/22 21:00 08/03/22 10:07 Midodrine 5 Mg T ablet PO 10 mg TID PRINCE Administration Mirtazapine 15 mg 08/01/22 21:00 08/02/22 20:06 Mirtazapine 15 M g Tablet PO 15 mg BEDTIME PRINCE Administration Non-Formulary Medi cation 600 mg 08/02/22 09:00 08/03/22 10:09 Calcium Carbonat e [Calcium 600] PO Not Given DAILY PRINCE Non-Formulary Medi cation 100 mg 08/01/22 21:00 08/03/22 10:09 Droxidopa [North era] PO Not Given TID PRINCE Pantoprazole Sodiu m 40 mg 08/02/22 09:00 08/03/22 10:[address] 40 Mg Tablet PO 40 mg DAILY RPINCE Administration Potassium Chloride 40 meq 08/02/22 09:00 08/03/22 10:06 Potassium Chlori de Er 20 Meq Table t PO 40 meq BID PRINCE Administration Vitamin D 5,000 unit 08/02/22 09:00 08/03/22 10:07 Cholecalciferol (Vitamin D3) 5,000 Unit Tablet PO 5,000 unit DAILY PRINCE Administration Vitals/I&O/Wt Last Vital Signs Temp 99.3 F 08/04/22 11:36 Pulse 104 H 08/04/22 11:36 Resp 17 08/04/22 11:36 BP 109/77 08/04/22 11:36 Pulse Ox 91 08/04/22 11:36 O2 Del Method 08/04/22 11:36 08/04/22 08/04/22 08/04/22 06:59 14:59 22:59 Intake Total 500 / 1285 500 / 500 Output Total 450 / 1750 1400 / 1400 Balance 50 / -465 -900 / -900 Weight last 48 hrs Weight 61.462 kg Physical Exam Const: COMMON NORMALS: patient oriented x3 Resp: COMMON NORMALS: normal respiratory effort, No retractions and No use of accessory muscles OTHER: Diminished air entry in lower right lung field, bilateral basal crackles both lung field Cardio: COMMON NORMALS: regular rate, regular rhythm, S1 normal heart sound present, S2 normal heart sound present, No gallops present (Cardio), No murmurs present (Cardio), No rub (Cardio) and Peripheral pulses 2+ throughout RATE: regular rate RHYTHM: regular rhythm HEART SOUNDS: S1 normal heart sound present and S2 normal heart sound present PERIPHERAL PULSES: Peripheral pulses 2+ throughout GI: COMMON NORMALS: Normal to inspection, nondistended, normoactive bowel sounds present, Soft to palpation, non-tender, No hepatosplenomegaly present and no masses AUSCULTATION: Yes normoactive bowel sounds PALPATION: Yes Soft to palpation and Yes No hepatosplenomegaly present RECTAL EXAM: deferred Extremity: NARRATIVE EXTREMITY EXAM: 1 + B/L PITTING EDEMA Present in both lower extremity Neuro: COMMON NORMALS: patient oriented x3 Urinary Catheter Management: Dodd: Cath Placed During This Visit: yes Reason for Continuing Indwelling Catheter: Accurate Measurement of Urinary Output in Critically Ill Patients Urinary Catheter Date of Insertion: 08/01/22 Urinary Catheter Time of Insertion: 22:05 Data : 08/04/22 06:00 08/04/22 04:34 A&P Assessment and plan (1) Volume overload: Status: Acute (2) Hypoalbuminemia: Status: Acute (3) CHF exacerbation: Status: Acute (4) Orthostatic hypotension: Status: Acute (5) Chronic migraine without aura, intractable, with status migrainosus: Status: Acute (6) Hypokalemia: Status: Acute Plan 62 year old female with PMHx of gastric bypass [id number], chronic migraines on botox injections , multiple syncopal episodes?, chronic O/H came in with c/o worsening swelling in the entire body , worsening sob with minimal exertion as well as worsening fatigue, according to the patient her SOB as well as her swelling has worsened acutely in the last couple of weeks, she has denied chest pain, fever, cough. Assessment : Volume Overload Migraine Chronic Orthostatic Hypotension HFpEF Rt Sided Pleural Effusion Plan : 2D ECho : Normal left ventricular size, systolic function and wall ?thickness, with no regional wall motion abnormalities. Grade ?I/IV diastolic dysfunction (abnormal relaxation filling ?pattern), normal to mildly elevated filling pressures. Left ?ventricular ejection fraction is estimated at 65 %. Structurally normal trileaflet aortic valve. Trace aortic valve regurgitation. Urine Analysis : Clean Random Urine Protein and Creatinine ( UPCR Ration ) : 0.3g/day Stop Florinef, continue midodrine Lasix 40 mg I.V BID Albumin TID Intake / output charting K>4, MG>2 Regular diet with protein supplements DVT PPX: On Lovenox Code Status :Full Code Attestations Medical Necessity Statement*: Patient needs to be in hospital for the management of volume overload. 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
[2022-08-04] MEDS: enoxaparin 40 mg/0.4 mL Syringe SUBCUT (17:09)
[2022-08-04] MEDS: mirtazapine 15 mg Tablet PO (20:42)
[2022-08-05] VITALS: BP 107/74; PULSE 90; RESP 17; TEMP 36.3; O2SAT 91
[2022-08-05 04:00] VITALS: BP 113/76; PULSE 86; RESP 16; TEMP 36.6; O2SAT 95
[2022-08-05 05:52] VITALS: PULSE 80
[2022-08-05 08:00] VITALS: BP 156/85; PULSE 100; RESP 18; TEMP 37; O2SAT 94
[2022-08-05] MEDS: cholecalciferol (vitamin D3) 5,000 unit Tablet 5000 UNIT PO (08:20)
[2022-08-05] MEDS: gabapentin 400 mg Capsule 800 MG PO ×2 (08:20→14:36)
[2022-08-05] MEDS: potassium chloride ER 20 mEq Tablet 40 MEQ PO (08:20)
[2022-08-05] MEDS: levothyroxine 125 mcg Tablet PO (08:20)
[2022-08-05] MEDS: BuSPIRONE 10 mg Tablet 30 MG PO (08:20)
[2022-08-05] MEDS: duloxetine 60 mg Capsule PO (08:20)
[2022-08-05] MEDS: midodrine 5 mg TABLET 10 MG PO ×2 (08:20→10:39)
[2022-08-05] MEDS: pantoprazole DR 40 mg Tablet PO (08:21)
[2022-08-05] MEDS: atorvastatin 40 mg Tablet 10 MG PO (08:21)
[2022-08-05] MEDS: ondansetron 2 mg/ML SDV 2 mL 4 MG IVP (09:13)
[2022-08-05 09:53] LABS: Basophils % 0.6 %; Eosinophils % 0.3 %; Hematocrit 32.8 % (37.0-47.0); Hemoglobin 10.5 g/dL (11.5-15.3); Lymphocytes # 2.6 10^3/uL (0.8-4.8); Lymphocytes % 39.1 %; Mean Corpuscular Hemoglobin 35.8 pg (28.0-34.0); Mean Corpuscular Volume 111.9 fl (81-99); Mean Platelet Volume 10.8 fL (7.4-10.4); Monocytes # 0.6 10^3/uL (0.2-0.9); Monocytes % 8.9 %; Neutrophils # 3.31 10^3/uL (1.8-7.7); Neutrophils % 50.6 %; Nucleated Red Blood Cells % 0 %; Platelet Count 192 10^3/cmm (130-400); Red Blood Count 2.93 10^6/uL (4.1-5.3); Red Cell Distribution Width 16.3 % (12.1-15.1); White Blood Count 6.5 10^3/uL (4.0-10.0)
[2022-08-05 10:17] LABS: Anion Gap 14.9 (5-19); Blood Urea Nitrogen 8 mg/dL (8-23); Calcium 7.6 mg/dL (8.5-10.5); Carbon Dioxide 31 mmol/L (22-29); Chloride 107 mmol/L (98-107); Glomerular Filtration Rate 161.7 mL/min (90-130); Glucose 94 mg/dL (65-115); Osmolality Calculated 306 mOsm/kg (285-295); Potassium 3.9 mmol/L (3.5-5.1); Sodium 149 mmol/L (136-145)
[2022-08-05] MEDS: HYDROcodone-acetaminophen 5-325 mg Tablet 1 TAB PO (11:59)
[2022-08-05 12:00] VITALS: BP 118/89; PULSE 98; RESP 18; TEMP 37.1; O2SAT 96
--- NOTE | 2022-08-05 12:03 | PM.DCS ---
Discharge Providers Date of Admission: 08/01/22 16:54 Date of Discharge: August 05, 2022 Attending Provider at Admission: Trace Casey MD Attending Provider at Discharge: Trace Casey MD Primary Care Provider: Steve Cuellar MD Diagnoses at Discharge Discharge Diagnosis (1) Volume overload: Status: Acute (2) Hypoalbuminemia: Status: Acute (3) CHF exacerbation: Status: Acute (4) Orthostatic hypotension: Status: Acute (5) Chronic migraine without aura, intractable, with status migrainosus: Status: Acute (6) Hypokalemia: Status: Acute Reason for Visit Reason for Visit: SOB/fluid retention on legs/arms Hospital Course Hospital Course HPI: Stefany Bassett is a 62 year old female?with PMHx of gastric bypass [id number], chronic migraines on botox injections , multiple syncopal episodes?, chronic O/H came in with c/o worsening swelling in the entire body , worsening? sob with minimal exertion as well as worsening fatigue, according to the patient her SOB as well as her swelling has worsened acutely in the last couple of weeks, she has denied chest pain, fever, cough. Upon arrival in the ER She was worked up for above mention complain. Pertinent Imaging studies : Xray Chest : Moderate size right basal pleural effusion with areas of atelectasis in the middle and lower lobes the right lung. EKG: SINUS RHYTHM WITH SHORT NC INTERVAL, LOW QRS VOLTAGE IN EXTREMITY LEADS. Pertinent Labs : ; WBC : 10 H&H :? 12/40 PLT ,: 249? Na ,138? K ,4? BUN/SCR : 12/0.7 , Albumin : 1.8 , AST : 58 ALT: 38? ALP: 265 , TSH : 0.43 , Free T4 : 0.73 Troponin: 26, 22, ? ? Pro BNP:? 693. She was admitted for the management of anasarca: Likely secondary to severe hypoalbuminemia, secondary to poor oral intake, patient was kept on IV albumin, as well as aggressive IV diuresis, to which she responded fairly well, At the time of discharge she was close to 7.8 L negative, she was also slightly hypernatremic, secondary to overdiuresis, Requiring the need for D5 water. Lasix has been kept on hold on discharge, she has been advised to follow-up with her Primary care physician in a week, at that point in time decision regarding reinitiating Lasix can be taken. For history of chronic orthostatic hypotension, fludrocortisone has been discontinued, she has been continued on midodrine. At the time of discharge patient was also having 2- 3 episodes of loose less likely C. difficile she has not been on any antibiotics, low clinical suspicion for infectious diarrhea,for now she has been asked to keep herself well-hydrated, Indulging in the eating, small frequent meals with high protein content. X-ray chest done during the hospital stay: Has shown significant improvement in right-sided pleural effusion. Patient has fairly responded well to above medical management and she is being discharged in stable condition to home. She will follow PCP as outpatient. Physical Exam Const: COMMON NORMALS: patient oriented x3 Resp: COMMON NORMALS: normal respiratory effort, No retractions and No use of accessory muscles OTHER: Diminished air entry in lower right lung field Cardio: COMMON NORMALS: regular rate, regular rhythm, S1 normal heart sound present, S2 normal heart sound present, No gallops present (Cardio), No murmurs present (Cardio), No rub (Cardio) and Peripheral pulses 2+ throughout RATE: regular rate RHYTHM: regular rhythm HEART SOUNDS: S1 normal heart sound present and S2 normal heart sound present PERIPHERAL PULSES: Peripheral pulses 2+ throughout GI: COMMON NORMALS: Normal to inspection, nondistended, normoactive bowel sounds present, Soft to palpation, non-tender, No hepatosplenomegaly present and no masses AUSCULTATION: Yes normoactive bowel sounds PALPATION: Yes Soft to palpation and Yes No hepatosplenomegaly present RECTAL EXAM: deferred Extremity: NARRATIVE EXTREMITY EXAM: 1 + B/L PITTING EDEMA Present in both lower extremity Neuro: COMMON NORMALS: patient oriented x3 Urinary Catheter Management: Dodd: Cath Placed During This Visit: yes Reason for Continuing Indwelling Catheter: Accurate Measurement of Urinary Output in Critically Ill Patients Urinary Catheter Date of Insertion: 08/01/22 Urinary Catheter Time of Insertion: 22:05 Discharge Data Studies Completed and Pending Completed Studies During Hospitalization Category Date Time Status XR chest 1V portable [id number] Routine Exams 08/04/22 08:47 Completed XR chest 1V portable [id number] Stat Exams 08/01/22 13:44 Completed CV. echo complete* [id number] Stat Ultrasound 08/01/22 18:02 Completed Radiology Impressions Chest X-Ray 08/04/22 08:47 IMPRESSION: 1. Left lower lobe interstitial congestion 2. Metallic pin left humeral a head Laboratory Results WBC 6.5 10^3/uL (4.0-10.0) 08/05/22 09:40 Corrected WBC Cancelled 08/04/22 04:34 RBC 2.93 10^6/uL (4.1-5.3) L 08/05/22 09:40 Hgb 10.5 g/dL (11.5-15.3) L 08/05/22 09:40 Hct 32.8 % (37.0-47.0) L 08/05/22 09:40 MCV 111.9 fl (81-99) H 08/05/22 09:40 MCH 35.8 pg (28.0-34.0) H 08/05/22 09:40 MCHC 32.0 g/dL (30.0-36.0) 08/05/22 09:40 RDW 16.3 % (12.1-15.1) H 08/05/22 09:40 Plt Count 192 10^3/cmm (130-400) 08/05/22 09:40 MPV 10.8 fL (7.4-10.4) H 08/05/22 09:40 Gran % Cancelled 08/04/22 04:34 Neut % (Auto) 50.6 % 08/05/22 09:40 Lymph % (Auto) 39.1 % 08/05/22 09:40 Whitman % (Auto) 8.9 % 08/05/22 09:40 Eos % (Auto) 0.3 % 08/05/22 09:40 Baso % (Auto) 0.6 % 08/05/22 09:40 Neut # (Auto) 3.31 10^3/uL (1.8-7.7) 08/05/22 09:40 Lymph # (Auto) 2.6 10^3/uL (0.8-4.8) 08/05/22 09:40 Whitman # (Auto) 0.6 10^3/uL (0.2-0.9) 08/05/22 09:40 Eos # (Auto) 0.0 10^3/uL (0.0-0.8) 08/05/22 09:40 Baso # (Auto) 0.0 10^3/uL (0.0-0.1) 08/05/22 09:40 Absolute Gran (auto) Cancelled 08/04/22 04:34 Nucleated RBC % (auto) 0 % 08/05/22 09:40 Nucleated RBCs # 0.0 /100WBC 08/05/22 09:40 Sodium 149 mmol/L (136-145) H 08/05/22 09:40 Potassium 3.9 mmol/L (3.5-5.1) 08/05/22 09:40 Chloride 107 mmol/L (98-107) 08/05/22 09:40 Carbon Dioxide 31 mmol/L (22-29) H 08/05/22 09:40 Anion Gap 14.9 (5-19) 08/05/22 09:40 BUN 8 mg/dL (8-23) 08/05/22 09:40 Creatinine 0.4 mg/dL (0.5-0.9) L 08/05/22 09:40 GFR Calculation 161.7 mL/min (90-130) H 08/05/22 09:40 Glucose 94 mg/dL (65-115) 08/05/22 09:40 Calculated Osmolality 306 mOsm/kg (285-295) H 08/05/22 09:40 Calcium 7.6 mg/dL (8.5-10.5) L 08/05/22 09:40 Phosphorus 4.4 mg/dL (2.5-4.5) 08/02/22 04:37 Magnesium 1.8 mg/dL (1.7-2.3) 08/02/22 04:37 Total Bilirubin 1.3 mg/dL (0.15-1.2) H 08/04/22 04:34 AST 42 U/L (0-32) H 08/04/22 04:34 ALT 20 U/L (0-33) 08/04/22 04:34 Alkaline Phosphatase 152 U/L (35-105) H 08/04/22 04:34 Ammonia 42 umol/L (11-51) 08/01/22 16:11 Troponin T Baseline 26 ng/L (0-10) H 08/01/22 14:32 Troponin T 120 Minute 22.72 ng/L (0-10) H 08/01/22 16:11 Delta Troponin T -3.28 ABS# (0-10) L 08/01/22 16:11 NT-Pro-B Natriuret Pep 693 pg/mL (0-125) H 08/01/22 14:32 Total Protein 4.3 g/dL (6.6-8.7) L 08/04/22 04:34 Albumin 3.2 g/dL (3.5-5.2) L 08/04/22 04:34 Globulin 1.1 g/dL (1.3-4.6) L 08/04/22 04:34 TSH 0.43 uIU/mL (0.27-4.20) 08/01/22 14:32 Free T4 0.73 ng/dL (0.82-1.77) L 08/01/22 14:32 Urine Color Yellow (Yellow) 08/02/22 02:15 Urine Appearance Clear (CLEAR) 08/02/22 02:15 Urine pH 5 (5-7) 08/02/22 02:15 Ur Specific [place] 1.010 (1.005-1.030) 08/02/22 02:15 Urine Protein Neg (Negative) 08/02/22 02:15 Urine Glucose (UA) Norm (Normal) 08/02/22 02:15 Urine Ketones Negative (Negative) 08/02/22 02:15 Urine Blood Neg (Negative) 08/02/22 02:15 Urine Nitrate Negative (Negative) 08/02/22 02:15 Urine Bilirubin Neg (Negative) 08/02/22 02:15 Urine Urobilinogen Norm mg/dL (Negative) 08/02/22 02:15 Ur Leukocyte Esterase Negative (Negative) 08/02/22 02:15 U Random Total Protein 4 mg/dL 08/02/22 02:15 Urine Creatinine 13 mg/dL (28-217) L 08/02/22 02:15 Vitals Last Vital Signs Temp 98.6 F 08/05/22 08:00 Pulse 100 08/05/22 08:00 Resp 18 08/05/22 08:00 BP 156/85 08/05/22 08:00 Pulse Ox 94 08/05/22 08:00 O2 Del Method 08/05/22 08:00 Discharge Plan Discharge Patient Disposition: Home Health Service Condition: Stable Prescriptions: New ondansetron 4 mg tablet,disintegrating 4 mg PO Q8H PRN (Reason: nausea and vomiting) 5 Days Qty: 14 0RF Continued atorvastatin 10 mg tablet 10 mg PO DAILY All Day Allergy (cetirizine) 10 mg capsule 10 mg PO DAILY PRN (Reason: allergy symptoms) calcium carbonate [Calcium 600] 600 mg calcium (1,500 mg) tablet 600 mg PO DAILY cholecalciferol (vitamin D3) 125 mcg (5,000 unit) capsule 125 mcg PO DAILY mecobalamin (vitamin B12) 5,000 mcg lozenge 5,000 mcg PO DAILY Rx Instructions: allow to dissolve in mouth OR may chew lightly before swallowing alendronate [Fosamax] 70 mg tablet 70 mg PO Q7D Rx Instructions: On Mondays droxidopa [Northera] 100 mg capsule 100 mg PO TID Qty: 90 3RF Rx Instructions: give consistently with OR without food, upon rising, at midday, late PM/at least 3hrs before bedtime buspirone 30 mg tablet 30 mg PO BID Qty: 120 11RF midodrine 10 mg tablet 10 mg PO TID Qty: 90 6RF Rx Instructions: do not give last dose of day after 6PM or within 4 hrs of bedtime hydrocodone-acetaminophen 5-325 mg tablet 1 tab PO Q6H PRN (Reason: pain) 3 Days Qty: 7 0RF duloxetine [Cymbalta] 60 mg capsule,delayed release(DR/EC) 60 mg PO DAILY Qty: 30 5RF rizatriptan [Maxalt] 10 mg tablet 10 mg PO Q2H PRN (Reason: migraine headache) Qty: 9 3RF Rx Instructions: needs appointment for refills gabapentin 800 mg tablet 800 mg PO TID pantoprazole [Protonix] 40 mg tablet,delayed release (DR/EC) 40 mg PO DAILY 30 Days Qty: 30 3RF sucralfate 1 gram Tablet 1 g PO BID levothyroxine 125 mcg tablet 125 mcg PO DAILY zonisamide 25 mg Capsule 50 mg PO BEDTIME mirtazapine 15 mg tablet 15 mg PO BEDTIME potassium chloride 20 mEq tablet extended release 40 meq PO BID Held Lasix 40 mg Tablet 40 mg PO BID Hold Instructions: Resume on 08/15/22. Discontinued fludrocortisone 0.1 mg tablet 0.1 mg PO DAILY Qty: 30 6RF Discharge Orders: Discharge Order (Routine); Ordered 08/05/22 Ordered By: Trace Casey Referrals: [facility] [Outside] Steve Cuellar MD [Primary Care Provider] - 1 week (Please call Dr. Cuellar's Office on Saturday at [phone] to schedule a follow up appointment for 1 week. Thank you.) Laxmi Pack MD [Physician] - 1 month (Please call your [employer] office on Saturday to make a follow up for one month or keep any upcoming appointments. ) Discharge Diet: Regular Patient Instructions: Heart Failure (DC), Hypokalemia (DC), CHF Stoplight, Opioid Safety Discharge Attestations Time Spent in Discharge Care*: less than 30 min Quality Metrics Clinical Quality Measures [ No reported AMI, CVA or VTE this stay] Coding Level of Care Code Acute Chg FW DC note Exam Expanded Problem Focused Diagnoses Volume overload E87.70 Hypoalbuminemia E88.09 CHF exacerbation I50.9 Orthostatic hypotension I95.1 Chronic migraine without aura, intractable, with status migrainosus G43.711 Hypokalemia E87.6
[2022-08-05] MEDS: loperamide 2 mg Capsule 4 MG PO (14:36)
[2022-08-05 16:18] VITALS: BP 118/89; PULSE 98; RESP 18; TEMP 37.1; O2SAT 96
--- NOTE | 2022-08-05 16:18 | PC.NURSE ---
Discharge Note Patient discharged to home via private vehicle accompanied by . Discharge instructions reviewed with patient and/or patient representative. Mobile pharmacy medications and/or prescriptions provided. Belongings/home medications returned.
== END 2022-08-05 16:00 | disposition home health service (06) | DRG 640 ==
LOC: ER 17:14 → MEDSURG 19:30
PROVIDERS: Admitting Provider Internal Medicine; Emergency Provider Emergency Medicine; PCP Family Medicine; Visit Provider Internal Medicine
DX: E87.70 Fluid overload, unspecified (principal); I50.33 Acute on chronic diastolic (congestive) heart failure; E88.09 Other disorders of plasma-protein metabolism, not elsewhere classified; E87.0 Hyperosmolality and hypernatremia; G43.701 Chronic migraine without aura, not intractable, with status migrainosus; I95.1 Orthostatic hypotension; E87.6 Hypokalemia; R19.7 Diarrhea, unspecified; Z98.84 Bariatric surgery status
CPT/HCPCS: 36415; 51702; 71045; 80048; 80053; 81003; 82140; 82575; 83735; 83880; 84100; 84156; 84439; 84443; 84484; 85025; 93005; 93306; 96372; 96374; 99285; J1650; J1940; J2405; J3480; P9047

== ENCOUNTER 2022-08-08 13:04 | Inpatient (IN) | payer MEDICARE, MEDICAID, SELFPAY ==
[2021-04-06 11:20] VITALS: BP 101/66; BMI 32.7
[2022-08-08] VITALS (11 sets, daily range): BP systolic 115–140; BP diastolic 74–96; PULSE 104–114; RESP 17–18; TEMP 36.9–37.7; O2SAT 91–99; BMI 19.0
--- NOTE | 2022-08-08 13:21 | ED_ITS ---
HPI - Fever General: Chief Complaint: Altered Mental Status Stated Complaint: AMS Time Seen by Provider: 08/08/22 13:11 History of Present Illness: Ms. Bassett is a 62-year-old lady with significant past medical history of psychiatric disorder and frequent falls who presents to the emergency department due to generalized illness. Onset of symptoms was yesterday and subacute. She endorses multiple episodes of diarrhea as well as headache which is frontal in nature and aching which is not typical for her. Intensity symptoms is moderate. Otherwise denies infectious symptoms. Course has been worsening. She feels more foggy today. No other specific changes in health, exacerbating, or alleviating factors identified. Onset (ago): day(s) Exacerbating factors: exertion Relieving factors: nothing Associated symptoms: Reports diarrhea, headache(s) and other Review of Systems General: Reports: 10 or more systems reviewed and unremarkable except in HPI and below GI: Reports: diarrhea Neuro: Reports: headache(s) PFSH ED PFSH: Medical History (Updated 08/10/22 @ 14:18 by Robin Gaston MD) Borderline personality disorder Chronic lumbar radiculopathy Chronic migraine without aura, intractable, with status migrainosus DDD (degenerative disc disease), lumbar Generalized anxiety disorder Grade I diastolic dysfunction History of stress test 12/2021 Hyperlipidemia Hypoalbuminemia Hypothyroidism Macrocytic anemia Major depression, recurrent, full remission Marginal ulcer Minor neurocognitive disorder Orthostatic hypotension Osteoporosis Post-traumatic stress disorder, chronic Pouchitis 04/26/2022 Psychiatric care Surgical History (Updated 08/08/22 @ 21:48 by Bri Jara MD) History of 2 sections History of carpal tunnel surgery of left wrist History of esophagogastroduodenoscopy (EGD) 07/27/2022 04/26/2022 Hx of appendectomy Hx of bilateral salpingectomy Hx of cholecystectomy Hx of colectomy bowel obstruction 11/2012 Hx of gastric bypass Hx of hernia repair Hx of hysterectomy Hx of knee surgery Right Hx of shoulder surgery Left Hx of tubal ligation Family History Other CAD (coronary artery disease) Cancer Diabetes Hyperlipidemia Hypertension Stroke Social History (Updated 08/08/22 @ 22:12 by Bri Jara MD) Smoking and tobacco status: never smoked Alcohol intake: never Substance/Drug Use: never Adopted: No Lives independently: Yes Household members: spouse and other Details: Grandson Housing: House Marital status: Marital status details: 27 years Number of children: 2 Number of grandchildren: 1 Highest education level completed: Associate Degree: Occupational, Technical, Vocational Program Education level details: Business service: No Current occupational status: disabled Current occupational exposures/hazards: No Pets and animals: Yes Pets & animals: cat(s), dog(s) and farm animals Farm Animals: other Leisure activites: other Leisure activities details: watch TV Sexually active: Yes Current gender identity: Female Alexandra/Taoist: Restoration Special alexandra needs: No Agree to transfusion: Yes Financial difficulty paying for basics: Very Hard Physical Exam Const: COMMON NORMALS: alert GENERAL APPEARANCE: cooperative, well developed and ill appearing HENMT: COMMON NORMALS: normocephalic and atraumatic HEAD & SCALP: normocephalic and atraumatic THROAT: posterior oropharynx normal Eye: COMMON NORMALS: conjunctivae normal CONJUNCTIVA: Yes conjunctivae nor mal SCLERA: sclerae normal Neck/C-Spine: COMMON NORMALS: supple GENERAL: Yes trachea midline Resp: EFFORT & INSPECTION: Yes able to speak in complete sentences and Yes tachypneic AUSCULTATION: diminished lung sounds OTHER: Patient becomes hypoxemic and respiratory distress without supplemental oxygen Cardio: COMMON NORMALS: regular rhythm RATE: tachycardic RHYTHM: regular rhythm GI: COMMON NORMALS: Soft to palpation PALPATION: Yes Soft to palpation and No Tenderness to palpation present (GI) Extremity: GENERAL: Yes normal exam except as noted and No edema Neuro: COMMON NORMALS: moves all extremities SENSORIUM/ORIENTATION: Yes jones rt and Yes somnolent Psych: OTHER: Mildly impaired thought process/recall Course ED course: - Patient was seen and evaluated by me at bedside - Patient placed on cardiac monitors, IV access obtained - Initial evaluation notable for exam as above, nonfocal however not quite normal mental status - Labs and xrays personally interpreted by me -IV fluids, antibiotics for CAP ordered, antipyretic ordered. - Labs notable for leukocytosis, macrocytic anemia. Metabolic panel without acute derangement to explain symptoms, lactic acid is elevated as is T bili and mild transaminitis. Delta troponin negative. BNP mildly elevated. Procalcit onin elevated. Urinalysis pending. - Imaging notable for mild pulmonary edema, no lobar consolidation or pneumothorax. Overall not significantly impressive compared to patient's clinical presentation. CT head without acute intracranial process. CT chest abdomen pelvis notable for likely pneumonia and pleural effusions with compressive atelectasis. There is body wall anasarca. - Upon serial reexamination after treatment the patient was similar - Based on patient history, evaluation, and testing as interpreted the most likely cause of the patient's condition is pneumonia with new oxygen requirement and acute on chronic heart failure with alteration in mental status secondary to infection - The results of ED evaluation were discussed with the patient including plan for admission due to requirement for level of care not available if discharged to prevent significant worsening/deterioration. - Admitting service was contacted and Dr Simeon with the hospitalist service agreed to admit the patient - Patient was admitted without further deterioration or significant events. Note: Click bubbles or prepopulated montero in note writing are used for assistance with data collection and billing and are inherently more limited than narrative and other text portions of this note. Please use narrative for additional clinical history and defer to narrative/free test for any case of contradictory information. If information appears in only free text or click bubble it should be considered present or absent as reported. Please contact note commercial underwriter for clarifications of clinical information or contradictory information. MDM is a brief summary, contradictory or erroneous seeming information should be clarified and full note should be reviewed. Vital Signs: Vital signs: Vital Signs Temperature 98.0 F 08/10/22 12:00 Pulse Rate 109 H 08/10/22 16:13 Respiratory Rate 19 H 08/10/22 19:41 Blood Pressure 110/75 08/10/22 12:00 Pulse Oximetry 97 08/10/22 19:41 Oxygen Delivery Me thod 08/10/22 16:13 Oxygen Flow Rate 10 08/10/22 16:13 Fraction of Inspir ed Oxygen 100 08/10/22 19:41 MDM - Fever Medical Decision Making 62-year-old lady with complex past medical history presenting with mental status change and generalized symptoms. Patient found to have likely heart failure exacerbation with pneumonia and meeting SIRS criteria. Admitted for further management. Medical Records I reviewed the patient's medical records. Lab Data I reviewed the patient's lab results. : 08/10/22 04:16 08/10/22 04:[address] 08/08/22 13:35 IMPRESSION: 1. No evidence of intracranial hemorrhage or mass effect. 2. Mild small vessel changes. Mild parenchymal volume loss. 3. No acute intracranial findings. Chest/Abdomen/Pelvis CT 08/08/22 14:46 IMPRESSION: 1. Small LEFT greater than RIGHT pleural effusions with compressive atelectasis in the lung bases. 2. A few patchy hazy ground glass infiltrates in both lower lobes and LEFT greater than RIGHT upper lobes likely infectious or inflammatory. No focal pneumonia. 3. Postoperative changes GE junction with moderate to large esophageal hiatal hernia. Fluid distended thoracic esophagus with air-fluid level. Hiatal hernia appears progressed compared to March 30, 2022 some of which may be due to fluid distention. 4. Diffuse fatty infiltration liver. Hepatomegaly. 5. Diffuse body wall anasarca. 6. Small volume pelvic ascites. 7. Air-fluid level in the bladder likely due to recent instrumentation. 8. No evidence of high-grade small or large bowel obstruction. 9. Chronic compression deformities L1 and L4 unchanged since March 30, 2022. 10. Prior gastric bypass, cholecystectomy, hysterectomy. Upper GI Series 08/10/22 13:59 IMPRESSION: 1. Large hiatal hernia and status post gastric bypass. 2. Favor this large hiatal hernia contains food products, bezoar-like material. 3. Liquid contrast did exit this large hernia but there may be a partial outlet obstruction. None of the food products did exit during this examination. Laboratory Results WBC 12.1 10^3/uL (4.0-10.0) H 08/08/22 13:48 RBC 2.51 10^6/uL (4.1-5.3) L 08/08/22 13:48 Hgb 9.2 g/dL (11.5-15.3) L 08/08/22 13:48 Hct 29.3 % (37.0-47.0) L 08/08/22 13:48 MCV 116.7 fl (81-99) H 08/08/22 13:48 MCH 36.7 pg (28.0-34.0) H 08/08/22 13:48 MCHC 31.4 g/dL (30.0-36.0) 08/08/22 13:48 RDW 15.6 % (12.1-15.1) H 08/08/22 13:48 Plt Count 141 10^3/cmm (130-400) 08/08/22 13:48 MPV 11.7 fL (7.4-10.4) H 08/08/22 13:48 Neut % (Auto) 71.0 % 08/08/22 13:48 Lymph % (Auto) 22.0 % 08/08/22 13:48 [place] % (Auto) 6.4 % 08/08/22 13:48 Eos % (Auto) 0.0 % 08/08/22 13:48 Baso % (Auto) 0.2 % 08/08/22 13:48 Neut # (Auto) 8.59 10^3/uL (1.8-7.7) H 08/08/22 13:48 Lymph # (Auto) 2.7 10^3/uL (0.8-4.8) 08/08/22 13:48 Clare # (Auto) 0.8 10^3/uL (0.2-0.9) 08/08/22 13:48 Eos # (Auto) 0.0 10^3/uL (0.0-0.8) 08/08/22 13:48 Baso # (Auto) 0.0 10^3/uL (0.0-0.1) 08/08/22 13:48 Nucleated RBC % (auto) 0 % 08/08/22 13:48 Nucleated RBCs # 0.0 /100WBC 08/08/22 13:48 Sodium 144 mmol/L (136-145) 08/08/22 13:48 Potassium 4.3 mmol/L (3.5-5.1) 08/08/22 13:48 Chloride 109 mmol/L (98-107) H 08/08/22 13:48 Carbon Dioxide 25 mmol/L (22-29) 08/08/22 13:48 Anion Gap 14.3 (5-19) 08/08/22 13:48 BUN 7 mg/dL (8-23) L 08/08/22 13:48 Creatinine 0.6 mg/dL (0.5-0.9) 08/08/22 13:48 GFR Calculation 101.3 mL/min (90-130) 08/08/22 13:48 Glucose 108 mg/dL (65-115) 08/08/22 13:48 Calculated Osmolality 297 mOsm/kg (285-295) H 08/08/22 13:48 Lactic Acid 2.6 mmol/L (0.5-2.2) H 08/08/22 20:25 Lactate 3.7 mmol/L (0.5-2.2) H 08/08/22 13:48 Calcium 8.8 mg/dL (8.5-10.5) 08/08/22 13:48 Total Bilirubin 1.5 mg/dL (0.15-1.2) H 08/08/22 13:48 AST 39 U/L (0-32) H 08/08/22 13:48 ALT 25 U/L (0-33) 08/08/22 13:48 Alkaline Phosphatase 189 U/L (35-105) H 08/08/22 13:48 Troponin T Baseline 25 ng/L (0-10) H 08/08/22 13:48 Troponin T 120 Minute 24.05 ng/L (0-10) H 08/08/22 15:33 Delta Troponin T -0.95 ABS# (0-10) L 08/08/22 15:33 C-Reactive Protein 9.4 mg/L (0.0-4.9) H 08/08/22 13:48 NT-Pro-B Natriuret Pep 807 pg/mL (0-125) H 08/08/22 13:48 Total Protein 4.6 g/dL (6.6-8.7) L 08/08/22 13:48 Albumin 3.1 g/dL (3.5-5.2) L 08/08/22 13:48 Globulin 1.5 g/dL (1.3-4.6) 08/08/22 13:48 Procalcitonin 2.93 ng/mL (0-0.5) H 08/08/22 13:48 TSH 0.49 uIU/mL (0.27-4.20) 08/08/22 13:48 Urine Color Yellow (Yellow) 08/08/22 17:23 Urine Appearance Hazy (CLEAR) A 08/08/22 17:23 Urine pH 6 (5-7) 08/08/22 17:23 Ur Specific [place] 1.000 (1.005-1.030) L 08/08/22 17:23 Urine Protein Neg (Negative) 08/08/22 17:23 Urine Glucose (UA) Norm (Normal) 08/08/22 17:23 Urine Ketones Negative (Negative) 08/08/22 17:23 Urine Blood Neg (Negative) 08/08/22 17:23 Urine Nitrate Negative (Negative) 08/08/22 17:23 Urine Bilirubin Neg (Negative) 08/08/22 17:23 Urine Urobilinogen 1 mg/dL (Negative) H 08/08/22 17:23 Ur Leukocyte Esterase 1+ (Negative) H 08/08/22 17:23 Urine RBC 0-4 /hpf (0-2) H 08/08/22 17:23 Urine WBC 5-10 /hpf (0-5) H 08/08/22 17:23 Ur Squamous Epith Cells 0-4 /hpf (0-5) H 08/08/22 17:23 Amorphous Sediment Not Reportable 08/08/22 17:23 Urine Bacteria 4+ /hpf (NONE) H 08/08/22 17:23 SARS-CoV-2 Ag (Rapid) Negative (Negative) 08/08/22 20:47 Critical Care Time Critical Care Time: Critical Care Time: Yes Total Critical Care Time: 35 Attestation: Due to a high probability of clinically significant, possibly life threatening deterioration, the patient required my highest level of attention and preparedness to intervene emergently and I personally spent this critical care time directly and personally managing the patient. This critical care time included obtaining a history; examining the patient; pulse oximetry; ordering and review of laboratory and imaging studies; arranging urgent treatment with development of a management plan; evaluation of patient's response to treatment; frequent reassessment; and, discussions with other providers as applicable. It was exclusive of separately billable procedures. Primary system involved is cardiopulmonary and infectious Discharge Plan Discharge Patient Disposition: Admitted As Inpatient Admit Provider: Buddy Simeon Clinical Impression: Pneumonia, CHF exacerbation, Hypoxemia Condition: Stable Coding Level of Care Code ED Curriculum And Instruction Specialist for Alisha Santa
--- NOTE | 2022-08-08 13:35 | CT_ITS ---
WS: [id number] CT HEAD TECHNIQUE: Noncontrast CT of the head obtained from the skullbase to the vertex. CLINICAL INFORMATION: headache, fever COMPARISON: 6 24,019 DLP: 976.[address] scans at [facility] use at least one of these dose optimization techniques: automated e xposure control; mA and/or kV adjustment per patient size (includes targeted exams where dose is matc hed to clinical indication); or iterative reconstruction. FINDINGS: No evidence of intracranial hemorrhage or mass effect. Ventricular system and basal cisterns are pena nt. Mild small vessel changes with mild parenchymal volume loss. No extra-axial fluid collections. No evidence of mass or mass effect. Mild cavernous carotid calcification. Paranasal sinuses and mastoid air cells are well aerated. .Normal visualized soft tissues. CT/CT head wo con* [id number] IMPRESSION: 1. No evidence of intracranial hemorrhage or mass effect. 2. Mild small vessel changes. Mild parenchymal volume loss. 3. No acute intracranial findings.
--- NOTE | 2022-08-08 13:35 | XR_ITS ---
WS: [id number] PORTABLE CHEST HISTORY: sob COMPARISON: 08/04/2022 Lung volumes are decreased. Probably due to poor inspiration. There is mild haziness and interstitial thickening over both lungs which is more prominent than on prior studies. Suspect mild fluid overloa d and edema. No dense consolidation or pneumonia. No pleural effusion or pneumothorax. Cardiac size: Mild cardiomegaly. Mediastinum/Aorta: Mildly widened mediastinum. Diffuse osteopenia. [place] LEFT rotator cuff. XR/XR chest 1V portable [id number] IMPRESSION: 1. Mild pulmonary edema has slightly increased since the prior study. 2. Mild cardiomegaly.
[2022-08-08] MEDS: lactated ringers 1,000 ML 999 ML IV ×2 (13:49→15:35)
[2022-08-08 14:04] LABS: Basophils % 0.2 %; Hematocrit 29.3 % (37.0-47.0); Hemoglobin 9.2 g/dL (11.5-15.3); Lymphocytes # 2.7 10^3/uL (0.8-4.8); Mean Corpuscular HGB Conc 31.4 g/dL (30.0-36.0); Mean Corpuscular Hemoglobin 36.7 pg (28.0-34.0); Mean Corpuscular Volume 116.7 fl (81-99); Mean Platelet Volume 11.7 fL (7.4-10.4); Monocytes # 0.8 10^3/uL (0.2-0.9); Monocytes % 6.4 %; Neutrophils # 8.59 10^3/uL (1.8-7.7); Nucleated Red Blood Cells % 0 %; Platelet Count 141 10^3/cmm (130-400); Red Blood Count 2.51 10^6/uL (4.1-5.3); Red Cell Distribution Width 15.6 % (12.1-15.1); White Blood Count 12.1 10^3/uL (4.0-10.0)
--- NOTE | 2022-08-08 14:09 | ECG_ITS ---
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 Measurements Intervals [place] Rate: 107 P: 25 MS: 128 QRS: 12 QRSD: 78 T: 29 QT: 342 QTc: 457 Interpretive Statements SINUS TACHYCARDIA LOW QRS VOLTAGE IN EXTREMITY LEADS [QRS DEFLECTION < 0.5 mV IN LIMB LEADS] POSSIBLE ANTERIOR MYOCARDIAL INFARCTION , PROBABLY OLD [30 ms Q WAVE IN V3/V4, OR R < 0.2 mV IN V4] Compared to ECG 08/01/2022 16:13:16 Myocardial infarct finding now present Sinus rhythm no longer present Short MS interval no longer present Electronically Signed On 08-08-2022 19:44:25 CDT by Kedar Melgar M.D. [id number] f
[2022-08-08 14:26] LABS: Lactate (Lactic Acid level) 3.7 mmol/L (0.5-2.2); Troponin(5th) Baseline 25 ng/L (0-10)
[2022-08-08 14:34] LABS: NT Pro B Type Natriuretic Pept 807 pg/mL (0-125); Procalcitonin 2.93 ng/mL (0-0.5); Thyroid Stimulating Hormone 0.49 uIU/mL (0.27-4.20)
[2022-08-08 14:45] LABS: Alanine Aminotransferase 25 U/L (0-33); Albumin Level 3.1 g/dL (3.5-5.2); Alkaline Phosphatase 189 U/L (35-105); Anion Gap 14.3 (5-19); Aspartate Amino Transferase 39 U/L (0-32); Blood Urea Nitrogen 7 mg/dL (8-23); C Reactive Protein 9.4 mg/L (0.0-4.9); Calcium 8.8 mg/dL (8.5-10.5); Carbon Dioxide 25 mmol/L (22-29); Chloride 109 mmol/L (98-107); Globulin 1.5 g/dL (1.3-4.6); Glomerular Filtration Rate 101.3 mL/min (90-130); Glucose 108 mg/dL (65-115); Osmolality Calculated 297 mOsm/kg (285-295); Potassium 4.3 mmol/L (3.5-5.1); Sodium 144 mmol/L (136-145); Total Bilirubin 1.5 mg/dL (0.15-1.2); Total Protein 4.6 g/dL (6.6-8.7)
--- NOTE | 2022-08-08 14:46 | CT_ITS ---
WS: [id number] CT CHEST, ABDOMEN, AND PELVIS TECHNIQUE: Contrast-enhanced CT of the chest, abdomen, and pelvis with coronal and sagittal reformatt ed images. CLINICAL INFORMATION: new o2, diarrhea, sepsis COMPARISON: March 30, 2022 DLP: 600.[address] scans at [facility] use at least one of these dose optimization techniques: automated e xposure control; mA and/or kV adjustment per patient size (includes targeted exams where dose is matc hed to clinical indication); or iterative reconstruction. CT CHEST: Small LEFT greater than RIGHT pleural effusions. Compressive atelectasis in the lung bases. A few pat sina hazy groundglass infiltrates in the LEFT upper lobe, RIGHT middle lobe and LEFT greater than RIGH T lower lobes likely infectious or inflammatory. No focal consolidation. Normal caliber thoracic aort a. Normal caliber descending thoracic aorta. Fluid distended thoracic esophagus with air-fluid level. No mediastinal or hilar lymphadenopathy. Diffuse body wall anasarca. A few prominent axillary lymph nodes nonspecific but likely reactive. CT ABDOMEN AND PELVIS: Postoperative changes the GE junction. Moderate to large esophageal hiatal hernia. Fluid distended di stal esophagus. Hiatal hernia appears progressed compared to March 30, 2022. Hepatomegaly. Diffuse fatty infiltration the liver. Prior cholecystectomy. Normal portal vein and spl enic vein. Fatty atrophy of the pancreas. Adrenal glands are normal. Normal renal parenchymal enhance ment. No hydronephrosis. Celiac and SMA are patent. Normal caliber abdominal aorta. Diffuse body wall anasarca the abdomen and pelvis. Small amount of pelvic ascites. Air-fluid level in the bladder likely due to recent instrumentation. No high-grade small or large bowel obstruction. Ev idence of prior bowel anastomosis in the LEFT upper quadrant. Chronic compression deformities inferio r endplate L1 superior endplate L4 unchanged since March 30, 2022. CT/CT chest abd pel w con* IMPRESSION: 1. Small LEFT greater than RIGHT pleural effusions with compressive atelectasi s in the lung bases. 2. A few patchy hazy ground glass infiltrates in both lower lobes and LEFT gre ater than RIGHT upper lobes likely infectious or inflammatory. No focal pneumon ia. 3. Postoperative changes GE junction with moderate to large esophageal hiatal hernia. Fluid distended thoracic esophagus with air-fluid level. Hiatal hernia appears progressed compared to March 30, 2022 some of which may be due to fluid distention. 4. Diffuse fatty infiltration liver. Hepatomegaly. 5. Diffuse body wall anasarca. 6. Small volume pelvic ascites. 7. Air-fluid level in the bladder likely due to recent instrumentation. 8. No evidence of high-grade small or large bowel obstruction. 9. Chronic compression deformities L1 and L4 unchanged since March 30, 2022. 10. Prior gastric bypass, cholecystectomy, hysterectomy.
[2022-08-08] MEDS: iohexol 350 mg/mL 100 mL Btl IV (15:13)
--- NOTE | 2022-08-08 15:21 | PC.PHAR ---
pt and pts verified pts medications-states the pt hasnt started the northera 100mg tid written on 07/23/22-pt states the donepezil 10mg hs filled 06/01/22 90d/s,fludrocortisone 0.1mg bid filled 05/15/22 90d/s,spironolactone 25mg daily filled 07/30/22 30d/s,tizanidine 4mg tid filled 06/27/22 30ds and lactulose 30ml daily filled 06/18/22 30d/s was all dced-pt also states she hasnt taken zonisamide 50mg hs for a few weeks because of side effects-notes are made in the pharmacy comments
--- NOTE | 2022-08-08 16:01 | ECG_ITS ---
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 Measurements Intervals [place] Rate: 104 P: 42 VT: 123 QRS: 15 QRSD: 76 T: 30 QT: 332 QTc: 438 Interpretive Statements SINUS TACHYCARDIA LOW QRS VOLTAGE [QRS DEFLECTION < 0.5/1.0 mV IN LIMB/CHEST LEADS] POSSIBLE ANTERIOR MYOCARDIAL INFARCTION , PROBABLY OLD [30 ms Q WAVE IN V3/V4, OR R < 0.2 mV IN V4] Compared to ECG 08/08/2022 14:09:07 No significant changes Electronically Signed On 08-08-2022 19:50:45 CDT by Kedar Melgar M.D. [id number]
[2022-08-08 16:06] LABS: Troponin 5 2HR 24.05 ng/L (0-10)
[2022-08-08 16:12] LABS: Troponin 5 2HR Delta -0.95 ABS# (0-10)
[2022-08-08] MEDS: acetaminophen 325 mg Tablet 650 MG PO (17:05)
[2022-08-08] MEDS: cefTRIAXone 1,000 MG in sodium chloride 0.9% (plus) 50 ML 100 MG IV (17:06)
[2022-08-08] MEDS: doxycycline 100 MG in sodium chloride 0.9% (plus) 100 ML IV (17:06)
[2022-08-08 17:47] LABS: Urine Appearance Hazy (CLEAR); Urine Color Yellow (Yellow); pH Urine 6 (5-7)
[2022-08-08 17:48] LABS: Add Urine Microscopic? YES; Bilirubin Urine Neg (Negative); Blood Urine Neg (Negative); Glucose Urine UA Norm (Normal); Ketones Urine Negative (Negative); Leukocyte Esterase Urine 1+ (Negative); Nitrate Urine Negative (Negative); Protein Urine Neg (Negative); Urobilinogen Urine 1 mg/dL (Negative)
[2022-08-08 17:58] LABS: Add Urine Culture? Yes; Bacteria Urine 4+ /hpf; RBC Urine 0-4 /hpf (0-2); Squamous Epithelial Cell Urine 0-4 /hpf (0-5)
--- NOTE | 2022-08-08 19:59 | ECG_ITS ---
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 Measurements Intervals [place] Rate: 109 P: 39 RI: 126 QRS: 4 QRSD: 76 T: -25 QT: 342 QTc: 462 Interpretive Statements SINUS TACHYCARDIA LOW QRS VOLTAGE [QRS DEFLECTION < 0.5/1.0 mV IN LIMB/CHEST LEADS] POSSIBLE ANTERIOR MYOCARDIAL INFARCTION , OF INDETERMINATE AGE [30 ms Q WAVE IN V3/V4, OR R < 0.2 mV IN V4] Compared to ECG 08/08/2022 16:01:03 No significant changes Electronically Signed On 08-08-2022 21:32:09 CDT by Kedar Melgar M.D. [id number]
[2022-08-08 20:53] LABS: Lactic Sepsis W/Reflex 2.6 mmol/L (0.5-2.2)
[2022-08-08 21:15] LABS: SARS Covid-2 Antigen Negative (Negative)
--- NOTE | 2022-08-08 21:18 | P.HP_ITS ---
Providers/Chief Complaint Admitting Physician: Bri Jara MD Primary Care Provider: Steve Cuellar MD Chief Complaint: Headache, not feeling well History of Present Illness Stefany Bassett is a 62 year old female who presented to the emergency room with chief complaint of headache and not feeling well. She was just discharged on August 05 after an admission with anasarca of felt related to severe hypoalbuminemia related to poor oral intake and nutritional status and what was described as CHF exacerbation. Chest x-ray at the time showed right-sided pleural effusion and areas of atelectasis in the right middle and lower lobes. She received diuresis and was 7.8 L negative at discharge. She says she was doing okay after discharge until yesterday. She describes having some loose stools, headache, general malaise. Her breathing has actually been okay. She has felt nauseated and had some vomiting. She says it is not unusual for her to vomit after eating. She has had issues with swallowing for some time with weight loss of 70 pounds or so in the last year. She had a gastric bypass, Aviva-en-Y procedure, years ago. She actually underwent upper endoscopy on July [address] Ortiz because of this. Esophagus was examined with no abnormalities. The gastroesophageal junction was located 35 cm from the incisors. In the gastric cardia evidence of prior gastric bypass with a 3 cm pouch was noted as were healed marginal ulcers at 12 and 9:00. Gastrojej unostomy diameter was noted to be 20 mm. No evidence of gastric fistula, strictures or pouchitis. Recommendations were for frequent small meals head of bed elevation antireflux medications and diet and avoidance of food and medicines that might increase reflux. Echocardiogram done during the last hospital stay showed ejection fraction of 65% with grade 1 diastolic dysfunction. She had myocardial perfusion imaging in December of this year that was normal though with transient ischemic dilatation index of 1.2 that may represent hypertensive response or subendocardial ischemia in the right clinical setting. Review of external medication reconciliation shows that Lasix appears to have been added to her medication regimen late July for edema. Mrs. Bassett has chronic orthostatic hypotension and follows with Dr. Pack. She follows with Dr. Dover for chronic migraines which occur daily. She is on Botox therapy for these with last dose administered on July 12. She has had increa sing falls lately. Work-up in the emergency room today included CT of the head that showed no evidence of acute intracranial process though mild small vessel changes and parenchymal volume loss were noted. Mrs. Bassett also had a CT of the chest abdomen and pelvis revealing small left greater than right pleural effusions with compressive atelectasis at the lung bases along with a few patchy hazy groundglass opacities in both lower lobes and left greater than right upper lobes felt to be likely infectious or inflammatory. Also notated was no focal pneumonia. A large esophageal hiatal hernia was again noted with fluid distended thoracic esophagus containing air-fluid level. Again noted is what is diffuse body wall anasarca and some pelvic ascites in addition to postoperative changes from prior surgeries. Laboratory studies revealed white count of 12,000, elevated lactic acid, procalcitonin, some elevation in bilirubin, alkaline phosphatase and to a much lesser degree AST, troponin elevation without a significant delta and a proBNP of 807. ED requested admission for pneumonia and CHF. Patient's primary complaint is that of a headache. At the time of my evaluation she has recently vomited oral intake from food she consumed in the emergency room. Food particles are large and not well chewed which she attributes to not having her teeth. She said its not unusual for her to have a similar amount of vomitus. She denies any chest pain. She has various sores in different stages of healing but the only one that is of acute concern to her is on her left medial fontana. She does not recall how she got it. She has had some tachycardia in the emergency room today as high as 114 on presentation. Blood pressures though have been stable as have oxygen saturations thus far. History is obtained from Mrs. Bassett though limited in consistent details. Previous records have also been reviewed. Review of Systems Const: Reports: chills, change in weight (Weight loss over the last year), fatigue and malaise; Denies: fever(s) or body aches Eyes: Reports: photophobia; Denies: change in vision ENMT: Reports: dry mouth; Denies: nasal congestion Card: Reports: edema and dyspnea on exertion; Denies: chest pain, palpitations or orthopnea Resp: Denies: productive cough, non-productive cough, pain on inspiration or chest congestion GI: Reports: nausea, vomiting, dysphagia, early satiety and diarrhea; Denies: abdominal pain, constipation, hematochezia or melena : Denies: difficulty voiding Musc: Reports: muscle weakness and other (Various pains, none are particularly acute) Skin/Breast: Reports: sores (Different stages of healing, 1 on the left leg medial fontana bothers her more); Denies: pruritus Neuro: Reports: headache(s), weakness in extremities and frequent falls; Denies: dizziness (None presently) Psych: Reports: anxiety and depression Louis/Lymph: Reports: easy bruising Medications/Allergies Home Medications Medication Instructions Recorded Confirmed Last Taken Type atorvastatin 10 mg tablet 10 mg PO DAILY 11/22/20 08/08/22 08/08/22 History cetirizine 10 mg capsule (All Day 10 mg PO DAILY PRN allergy symptoms 11/22/20 08/08/22 08/01/22 History Allergy (cetirizine)) calcium carbonate 600 mg calcium 600 mg PO DAILY 06/13/21 08/08/22 08/08/22 History (1,500 mg) tablet (Calcium) cholecalciferol (vitamin D3) 125 125 mcg PO DAILY 06/13/21 08/08/22 08/08/22 Hi story mcg (5,000 unit) capsule buspirone 30 mg tablet 30 mg PO BID #120 tabs 10/09/21 08/08/22 08/08/22 Rx rizatriptan 10 mg tablet (Maxalt) 10 mg PO Q2H PRN migraine headache 11/30/21 08/08/22 04/25/22 Rx #9 tabs alendronate 70 mg tablet (Fosamax) 70 mg PO Q7D 12/13/21 08/08/22 07/30/22 History gabapentin 800 mg tablet 800 mg PO TID pain 02/08/22 08/08/22 08/08/22 History midodrine 10 mg tablet 10 mg PO TID #90 tabs 02/16/22 08/08/22 08/08/22 07:00 Rx duloxetine 60 mg capsule,delayed 60 mg PO DAILY #30 caps 04/17/22 08/08/22 08/08/22 Rx release (Cymbalta) droxidopa 100 mg capsule (Northera) 100 mg PO TID #90 caps 07/23/22 08/08/22 Unknown Rx furosemide 40 mg tablet (Lasix) 40 mg PO BID 08/01/22 08/08/22 08/01/22 History levothyroxine 125 mcg tablet 125 mcg PO QAM 08/01/22 08/08/22 08/08/22 History mirtazapine 15 mg tablet 15 mg PO BEDTIME 08/01/22 08/08/22 08/07/22 History potassium chloride 20 mEq 40 meq PO BID 08/01/22 08/08/22 08/08/22 History tablet,extended release sucralfate 1 gram tablet 1 g PO BID 08/01/22 08/08/22 08/01/22 History zonisamide 25 mg capsule 50 mg PO BEDTIME 08/01/22 08/08/22 2 Weeks Ago History ~07/25/22 ondansetron 4 mg disintegrating 4 mg PO Q8H PRN nausea and 08/05/22 08/08/22 Unknown Rx tablet vomiting 5 days #14 tabs cyanocobalamin (vitamin B-12) 1,000 mcg PO DAILY 08/08/22 08/08/22 Unknown History 1,000 mcg tablet (Vitamin B-12) hydrocodone 7.5 mg-acetaminophen 1 tab PO Q6H PRN Pain 08/08/22 08/08/22 Unknown History 325 mg tablet pantoprazole 40 mg tablet,delayed 40 mg PO QAM 08/08/22 08/08/22 08/08/22 History release (Protonix) Allergies Allergy/AdvReac Type Severity Reaction Status Date / Time lithium Allergy Intermediate NAUSEA AND Verified 07/27/22 06:16 VOMITING lactose Allergy ADR-Gastrointestinal Verified 08/04/22 17:39 Upset adhesive tape AdvReac Intermediate ALGY-Rash Verified 07/27/22 06:16 PFSH Acute PFSH: Medical History (Updated 08/08/22 @ 22:40 by Bri Jara MD) Borderline personality disorder Chronic lumbar radiculopathy Chronic migraine without aura, intractable, with status migrainosus DDD (degenerative disc disease), lumbar Generalized anxiety disorder Grade I diastolic dysfunction History of stress test 12/2021 Hyperlipidemia Hypoalbuminemia Hypothyroidism Macrocytic anemia Major depression, recurrent, full remission Marginal ulcer Minor neurocognitive disorder Orthostatic hypotension Osteoporosis Post-traumatic stress disorder, chronic Pouchitis 04/26/2022 Psychiatric care Surgical History (Updated 08/08/22 @ 21:48 by Bri Jara MD) History of 2 sections History of carpal tunnel surgery of left wrist History of esophagogastroduodenoscopy (EGD) 07/27/2022 04/26/2022 Hx of appendectomy Hx of bilateral salpingectomy Hx of cholecystectomy Hx of colectomy bowel obstruction 11/2012 Hx of gastric bypass Hx of hernia repair Hx of hysterectomy Hx of knee surgery Right Hx of shoulder surgery Left Hx of tubal ligation Family History Other CAD (coronary artery disease) Cancer Diabetes Hyperlipidemia Hypertension Stroke Social History (Updated 08/08/22 @ 22:12 by Bri Jara MD) Smoking and tobacco status: never smoked Alcohol intake: never Substance/Drug Use: never Adopted: No Lives independently: Yes Household members: spouse and other Details: Grandson Housing: House Marital status: Marital status details: 27 years Number of children: 2 Number of grandchildren: 1 Highest education level completed: Associate Degree: Occupational, Technical, Vocational Program Education level details: Business service: No Current occupational status: disabled Current occupational exposures/hazards: No Pets and animals: Yes Pets & animals: cat(s), dog(s) and farm animals Farm Animals: other Leisure activites: other Leisure activities details: watch TV Sexually active: Yes Current gender identity: Female Alexandra/Protestant: Alevism Special alexandra needs: No Agree to transfusion: Yes Financial difficulty paying for basics: Very Hard Vitals/I&O/Wt Last Vital Signs Temp 100 F H 08/08/22 13:17 Pulse 109 H 08/08/22 20:18 Resp 17 08/08/22 20:18 BP 128/88 08/08/22 20:18 Pulse Ox 95 08/08/22 20:18 O2 Del Method 08/08/22 18:00 O2 Flow Rate 2 08/08/22 18:00 08/08/22 08/08/22 08/08/22 06:59 14:59 22:59 Intake Total 1000 / 1000 Balance 1000 / 1000 Weight last 48 hrs Weight 47.174 kg Physical Exam Narrative: Constitutional: Awake, alert, keeps hands over her eyes, cooperative but has a chronic ill appearance and does not look to be the same person 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, has a bedpan with recent vomitus of food noted HEENT: Bitemporal wasting, extraocular movements intact, moist mucous membranes Neck: Supple Respiratory: Bibasilar crackles, no wheezes, no accessory muscle use Cardiovascular: Regular rate and rhythm, no gallops or rubs Abdomen: Soft, nontender, doughy texture, positive bowel sounds Extremities: Trace edema bilaterally in lower extremities, muscle wasting noted Skin: Scattered sores and bruises in different stages of healing with iatrogenic changes noted to the upper extremities in particular from blood draws Neuro: Speech clear, face symmetric, moves all extremities, no involuntary movements noted Psych: Flat affect Data : 08/08/22 13:48 08/08/22 13:48 Other Labs: Radiology Impressions Chest X-Ray 08/08/22 13:35 IMPRESSION: 1. Mild pulmonary edema has slightly increased since the prior study. 2. Mild cardiomegaly. Head CT 08/08/22 13:35 IMPRESSION: 1. No evidence of intracranial hemorrhage or mass effect. 2. Mild small vessel changes. Mild parenchymal volume loss. 3. No acute intracranial findings. Chest/Abdomen/Pelvis CT 08/08/22 14:46 IMPRESSION: 1. Small LEFT greater than RIGHT pleural effusions with compressive atelectasis in the lung bases. 2. A few patchy hazy ground glass infiltrates in both lower lobes and LEFT greater than RIGHT upper lobes likely infectious or inflammatory. No focal pneumonia. 3. Postoperative changes GE junction with moderate to large esophageal hiatal hernia. Fluid distended thoracic esophagus with air-fluid level. Hiatal hernia a ppears progressed compared to March 30, 2022 some of which may be due to fluid distention. 4. Diffuse fatty infiltration liver. Hepatomegaly. 5. Diffuse body wall anasarca. 6. Small volume pelvic ascites. 7. Air-fluid level in the bladder likely due to recent instrumentation. 8. No evidence of high-grade small or large bowel obstruction. 9. Chronic compression deformities L1 and L4 unchanged since March 30, 2022. 10. Prior gastric bypass, cholecystectomy, hysterectomy. Laboratory Results WBC 12.1 10^3/uL (4.0-10.0) H 08/08/22 13:48 RBC 2.51 10^6/uL (4.1-5.3) L 08/08/22 13:48 Hgb 9.2 g/dL (11.5-15.3) L 08/08/22 13:48 Hct 29.3 % (37.0-47.0) L 08/08/22 13:48 MCV 116.7 fl (81-99) H 08/08/22 13:48 MCH 36.7 pg (28.0-34.0) H 08/08/22 13:48 MCHC 31.4 g/dL (30.0-36.0) 08/08/22 13:48 RDW 15.6 % (12.1-15.1) H 08/08/22 13:48 Plt Count 141 10^3/cmm (130-400) 08/08/22 13:48 MPV 11.7 fL (7.4-10.4) H 08/08/22 13:48 Neut % (Auto) 71.0 % 08/08/22 13:48 Lymph % (Auto) 22.0 % 08/08/22 13:48 Spink % (Auto) 6.4 % 08/08/22 13:48 Eos % (Auto) 0.0 % 08/08/22 13:48 Baso % (Auto) 0.2 % 08/08/22 13:48 Neut # (Auto) 8.59 10^3/uL (1.8-7.7) H 08/08/22 13:48 Lymph # (Auto) 2.7 10^3/uL (0.8-4.8) 08/08/22 13:48 Spink # (Auto) 0.8 10^3/uL (0.2-0.9) 08/08/22 13:48 Eos # (Auto) 0.0 10^3/uL (0.0-0.8) 08/08/22 13:48 Baso # (Auto) 0.0 10^3/uL (0.0-0.1) 08/08/22 13:48 Nucleated RBC % (auto) 0 % 08/08/22 13:48 Nucleated RBCs # 0.0 /100WBC 08/08/22 13:48 Sodium 144 mmol/L (136-145) 08/08/22 13:48 Potassium 4.3 mmol/L (3.5-5.1) 08/08/22 13:48 Chloride 109 mmol/L (98-107) H 08/08/22 13:48 Carbon Dioxide 25 mmol/L (22-29) 08/08/22 13:48 Anion Gap 14.3 (5-19) 08/08/22 13:48 BUN 7 mg/dL (8-23) L 08/08/22 13:48 Creatinine 0.6 mg/dL (0.5-0.9) 08/08/22 13:48 GFR Calculation 101.3 mL/min (90-130) 08/08/22 13:48 Glucose 108 mg/dL (65-115) 08/08/22 13:48 Calculated Osmolality 297 mOsm/kg (285-295) H 08/08/22 13:48 Lactic Acid 2.6 mmol/L (0.5-2.2) H 08/08/22 20:25 Lactate 3.7 mmol/L (0.5-2.2) H 08/08/22 13:48 Calcium 8.8 mg/dL (8.5-10.5) 08/08/22 13:48 Total Bilirubin 1.5 mg/dL (0.15-1.2) H 08/08/22 13:48 AST 39 U/L (0-32) H 08/08/22 13:48 ALT 25 U/L (0-33) 08/08/22 13:48 Alkaline Phosphatase 189 U/L (35-105) H 08/08/22 13:48 Troponin T Baseline 25 ng/L (0-10) H 08/08/22 13:48 Troponin T 120 Minute 24.05 ng/L (0-10) H 08/08/22 15:33 Delta Troponin T -0.95 ABS# (0-10) L 08/08/22 15:33 C-Reactive Protein 9.4 mg/L (0.0-4.9) H 08/08/22 13:48 NT-Pro-B Natriuret Pep 807 pg/mL (0-125) H 08/08/22 13:48 Total Protein 4.6 g/dL (6.6-8.7) L 08/08/22 13:48 Albumin 3.1 g/dL (3.5-5.2) L 08/08/22 13:48 Globulin 1.5 g/dL (1.3-4.6) 08/08/22 13:48 Procalcitonin 2.93 ng/mL (0-0.5) H 08/08/22 13:48 TSH 0.49 uIU/mL (0.27-4.20) 08/08/22 13:48 Urine Color Yellow (Yellow) 08/08/22 17:23 Urine Appearance Hazy (CLEAR) A 08/08/22 17:23 Urine pH 6 (5-7) 08/08/22 17:23 Ur Specific Mammoth 1.000 (1.005-1.030) L 08/08/22 17:23 Urine Protein Neg (Negative) 08/08/22 17:23 Urine Glucose (UA) Norm (Normal) 08/08/22 17: Urine Ketones Negative (Negative) 08/08/22 17: Urine Blood Neg (Negative) 08/08/22 17: Urine Nitrate Negative (Negative) 08/08/22 17:23 Urine Bilirubin Neg (Negative) 08/08/22 17:23 Urine Urobilinogen 1 mg/dL (Negative) H 08/08/22 17:23 Ur Leukocyte Esterase 1+ (Negative) H 08/08/22 17:23 Urine RBC 0-4 /hpf (0-2) H 08/08/22 17:23 Urine WBC 5-10 /hpf (0-5) H 08/08/22 17:23 Ur Squamous Epith Cells 0-4 /hpf (0-5) H 08/08/22 17:23 Amorphous Sediment Not Reportable 08/08/22 17:23 Urine Bacteria 4+ /hpf (NONE) H 08/08/22 17:23 SARS-CoV-2 Ag (Rapid) Negative (Negative) 08/08/22 20:47 Micro: Microbiology 08/08/22 14:13 Blood Culture - Preliminary Blood SPECIMEN COLLECTED 08/08/22 14:04 Blood Culture - Preliminary Blood SPECIMEN COLLECTED A&P Assessment and plan (1) Pneumonia: Diagnosis at time of admission based on report of frequent vomiting, degree of vomiting occurring in the emergency room, abnormalities noted on CT imaging of the chest and laboratory findings today. She has had prior barium swallow and other outpatient work-up. COVID testing was negative by PCR. Procalcitonin was elevated. Lactic acid also elevated though not demonstrating degree of hypoxemia or definitive evidence of sepsis to account for this. Definitely with some SIRS criteria with tachycardia appropriate for presenting temperature of 100 degrees and identified pulmonary abnormalities. But blood pressure, and someone known to have orthostatic hypotension has been stable. Also in the differential is other infectious or inflammatory processes, pulmonary edema from diastolic CHF, ischemia both coronary and mesenteric, though I would expect more pain to be associated in that scenario. Myocardial perfusion imaging was normal in December of this year though with a TID ratio of 1.2. Status: Acute Qualifiers: Pneumonia type: aspiration pneumonia (2) Esophageal hiatal hernia: With food/fluid-filled esophagus noted on CT imaging. Had EGD on July 27 that did not demonstrate esophageal abnormalities. Previous marginal ulcers were healing and changes of prior Aviva-en-Y procedure were noted with a 20 mm gastrojejunostomy diameter. On chronic PPI. Status: Chronic (3) Status post gastric bypass for obesity: Supposed to eat frequent small meals but as evidenced by what she ate in the emergency room I think she probably eats more volume than she should at times resulting in frequent vomiting in addition to impact from reflux issues. Has seen Dr. Ortiz on an outpatient basis for a while. Status: Chronic (4) Chronic migraine: On Botox through Dr. Dover's office and other medicines though continues to have daily migraines and from history that I was able to obtain was her primary reason for representing today Status: Chronic (5) Grade I diastolic dysfunction: With diffuse body wall anasarca. Described pulmonary effusions presently felt to likely be secondary to aspiration. Has recently been started on diuretic therapy though it was held at discharge earlier this week after stay with almost 8 L negative fluid balance and someone with known orthostatic hypotension and frequent falls. Echocardiogram within the last 10 days showed an ejection fraction of 65%. Status: Chronic (6) Macrocytic anemia: Significant macrocytosis, B12 and folate levels in April of this year were greater than 2000 and 20, respectively. She is on oral supplementation. Iron levels were also normal at the time. Hemoglobin has been fairly persistently low around 9. Platelets are normal. Unclear to me if she has had further evaluation regarding this in the outpatient setting. Status: Chronic (7) Orthostatic hypotension: Chronic diagnosis, follows with Dr. Pack. Is on Northera and midodrine. Review of prior discharge summary shows that fludrocortisone was discontinued earlier this week. Status: Chronic (8) Hypothyroidism: On chronic levothyroxine Status: Chronic Qualifiers: Hypothyroidism type: acquired Qualified Code(s): E03.9 - Hypothyroidism, unspecified Plan Psychiatric diagnoses on chronic medications as noted above past medical history Chronic back pain on gabapentin and as needed hydrocodone Osteoporosis on chronic alendronate Hyperlipidemia on chronic statin therapy Inpatient admission Levaquin and Zosyn (status post Rocephin and doxycycline in the emergency room both x1 dose) Follow-up pending blood cultures Oxygen therapy and pulmonary toilet as needed Currently avoiding inhaled or systemic steroids secondary to gastric issues but may have to consider Monitor clinical condition closely for acute changes PPI Antiemetics as needed GI soft diet, patient encouraged to only eat small amounts at a time Resume diuresis; received IV Lasix in the emergency room, monitor output She also received 2 L of IV fluid in the emergency room; saline lock Follow up 6 hour cardiac enzymes Continue home statin therapy Continue usual migraine management; this is a daily occurrence for her by report Check peripheral smear Monitor H&H Lovenox for DVT prophylaxis, tolerated during prior stay Continue home levothyroxine Continue home psychiatric medications Continue home midodrine and Northera if available Continue home gabapentin and hydrocodone Hold home alendronate Supportive care otherwise Anticipate discharge home when medically stable; may benefit from closer outpatient follow-up and/or home services Findings, concerns and plans were discussed with patient and she was given an opportunity to ask questions Attestations Medical Necessity Statement*: Anticipated stay greater than 2 midnights in this patient who presented with somewhat general complaints but was found to have radiological abnormalities described above along with elevation in white count, lactic acid and procalcitonin. Concern is for significant aspiration. She has tachycardia and temperature of 100 but vital signs are otherwise currently stable. With comorbidities at high risk of rapid clinical decline without initiation of appropriate treatment and monitoring. Coding Level of Care Code Acute Diabetes [employer] Specialist for Chg Fwd Diagnoses Pneumonia J18.9 Pneumonia type: aspiration pneumonia Esophageal hiatal hernia K44.9 Status post gastric bypass for obesity Z98.84 Chronic migraine Grade I diastolic dysfunction I51.89 Macrocytic anemia D53.9 Orthostatic hypotension I95.1 Hypothyroidism E03.9 Hypothyroidism type: acquired
[2022-08-08 22:18] LABS: Reflex Lactate Order REFLEX LACTIC ORDERD
[2022-08-08] MEDS: HYDROcodone-acetaminophen 7.5-325 mg Tablet 1 TAB PO (22:58)
[2022-08-08] MEDS: atorvastatin 40 mg Tablet 20 MG PO (22:59)
[2022-08-08] MEDS: gabapentin 400 mg Capsule 800 MG PO (22:59)
[2022-08-08] MEDS: mirtazapine 15 mg Tablet PO (23:00)
[2022-08-09] VITALS (8 sets, daily range): BP systolic 109–120; BP diastolic 68–83; PULSE 101–108; RESP 14–20; TEMP 36.5–37.6; O2SAT 85–94
[2022-08-09] MEDS: acetaminophen 325 mg Tablet 650 MG PO (03:54)
[2022-08-09] MEDS: levofloxacin-dextrose 5 % 750 MG/150 ML PREMIX 100 MG IV (04:42)
[2022-08-09 05:21] LABS: Basophils % 0.4 %; Hematocrit 30.8 % (37.0-47.0); Hemoglobin 9.4 g/dL (11.5-15.3); Lymphocytes # 2.4 10^3/uL (0.8-4.8); Lymphocytes % 28.7 %; Mean Corpuscular HGB Conc 30.5 g/dL (30.0-36.0); Mean Corpuscular Hemoglobin 36.2 pg (28.0-34.0); Mean Corpuscular Volume 118.5 fl (81-99); Mean Platelet Volume 11.6 fL (7.4-10.4); Monocytes # 0.4 10^3/uL (0.2-0.9); Neutrophils # 5.56 10^3/uL (1.8-7.7); Neutrophils % 65.5 %; Nucleated Red Blood Cells % 0 %; Platelet Count 146 10^3/cmm (130-400); Red Cell Distribution Width 15.4 % (12.1-15.1); White Blood Count 8.5 10^3/uL (4.0-10.0)
[2022-08-09 05:47] LABS: Troponin 5 6HR 25.69 ng/L (0-10)
[2022-08-09 05:57] LABS: Procalcitonin 3.44 ng/mL (0-0.5)
[2022-08-09 05:58] LABS: Alanine Aminotransferase 23 U/L (0-33); Alkaline Phosphatase 175 U/L (35-105); Anion Gap 13.9 (5-19); Aspartate Amino Transferase 28 U/L (0-32); Blood Urea Nitrogen 7 mg/dL (8-23); Calcium 8.9 mg/dL (8.5-10.5); Carbon Dioxide 25 mmol/L (22-29); Chloride 112 mmol/L (98-107); Globulin 1.6 g/dL (1.3-4.6); Glucose 77 mg/dL (65-115); Magnesium 1.7 mg/dL (1.7-2.3); Osmolality Calculated 301 mOsm/kg (285-295); Potassium 3.9 mmol/L (3.5-5.1); Sodium 147 mmol/L (136-145); Total Bilirubin 1.6 mg/dL (0.15-1.2); Total Protein 4.6 g/dL (6.6-8.7)
[2022-08-09 05:59] LABS: Troponin 5 6HR Delta 0.69 ng/L (0-12)
[2022-08-09 06:00] LABS: Lactate (Lactic Acid level) 1.4 mmol/L (0.5-2.2)
[2022-08-09] MEDS: piperacillin-tazobactam 3.375 GM in sodium chloride 0.9% (plus) 50 ML IV ×2 (06:47→22:30)
[2022-08-09] MEDS: pantoprazole DR 40 mg Tablet PO (06:47)
[2022-08-09] MEDS: levothyroxine 125 mcg Tablet PO (06:47)
[2022-08-09] MEDS: ondansetron 2 mg/ML SDV 2 mL 4 MG IVP ×2 (06:49→21:30)
[2022-08-09 06:58] LABS: LAB Peripheral Smear Sent for Review
[2022-08-09] MEDS: midodrine 5 mg TABLET 10 MG PO ×2 (08:23→21:22)
[2022-08-09] MEDS: FUROsemide 40 mg Tablet PO (08:23)
[2022-08-09] MEDS: gabapentin 400 mg Capsule 800 MG PO ×3 (08:24→21:22)
[2022-08-09] MEDS: potassium chloride ER 20 mEq Tablet 40 MEQ PO ×2 (08:24→18:18)
[2022-08-09] MEDS: duloxetine 60 mg Capsule PO (08:24)
[2022-08-09] MEDS: docusate sodium 100 mg Capsule PO ×2 (08:24→18:19)
[2022-08-09] MEDS: BuSPIRONE 10 mg Tablet 30 MG PO ×2 (08:24→18:19)
[2022-08-09] MEDS: cetirizine 10 mg Tablet PO (08:24)
--- NOTE | 2022-08-09 10:19 | PC.CHAP ---
Pastoral Care Encounter/Spiritual Assessment Type of Contact [] Declined band presser visit [] Patient/Family/Request visit [] Outpatient visit [] Follow-up visit [] Physician referral [] Code/Alert [x] Routine visit [] Staff referral [] Actively dying [] Patient sleeping [] Family support [] [] Out of room [] Palliative care [] [x] Receiving care in room [] Pre-surgical visit [] Trauma [] Long length of stay [] ICU visit [x] Other: unable to communicate Relational/Emotional Strength [] Patient feels connected with others/family/visitors/staff [] Distress [] Loneliness/isolation [] Abandonment Spirituality of Patient [] Person of Alexandra [] Attends Jain of their Alexandra [] Believes in Prayer [] Reads Bible or Zoroastrian materials [] There are Spiritual issues to be addressed 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 Interventions [] Prayer [] Active listening [] Non-anxious presence [] Spiritual/emotional support [] Crisis/trauma care [] Spiritual counseling [] Bereavement support [] Provided bereavement packet [] Provided Bible/devotional materials [] Provided toy/stuffed animal, coloring book to patient or family member [] Provided Communion [] Anointing/[place] [] Salvation [] Completed spiritual assessment [] Other: Impact on Illness or Injury [] Angry [] Fearful [] Anxious [] Often cries [] Exhaustion [] Unable to work [] Unable to attend mosque [] Unable to walk/stand [] Unable to read [] Unable to drive [] Unable to eat/drink [] Unable to sleep [] Unable to be with family [] Patient intubated [] Other: Summary unable to communicate Time spent with patient 5 mins
[2022-08-09] MEDS: dextrose 5%-sod chloride 0.9% 1,000 ML 50 ML IV (11:30)
[2022-08-09] MEDS: folic acid 1 MG, multivitamin inj 10 ML, thiamine 100 MG in sodium chloride 0.9% 1,000 ML 252.8 MG IV (14:15)
--- NOTE | 2022-08-09 14:28 | PC.NURSE ---
PATIENT REFUSING LABS. DR. RAMOS NOTIFIED.
--- NOTE | 2022-08-09 14:42 | PC.NURSE ---
Patient and spouse have wanted to leave ama all afternoon. Charge nurse spoke with family. This nurse spoke with both parties. I stated the patient needs medical care. Spouse said he could take care of her at home making sure she could go to the bathroom and get drinks. This nurse stated the outcome would probably not be good if he took her home due to vomiting blood which is not normal. Spouse stated she wants to go and he will do as she wishes. This nurse asked if they needed me to call Dr. Mao to let him know. The patient asked this nurse Are you trying to scare me straight? This nurse told patient no, it is stating the truth. Patient allowed this nurse and student to turn and change her gown. Patient is resting in bed at this time.
--- NOTE | 2022-08-09 14:56 | PC.NURSE ---
Patient is refusing any lab sticks and nursing sticks. Patient states she does not want to take any more medications is willing when I take IV medications in to let me start them.
--- NOTE | 2022-08-09 15:43 | PM.PN ---
Subjective Subjective: Hospital course, labs appreciated. Today morning seen with at bedside. During examination patient had a sip of water which she vomited in few seconds. Patient shows me a bucket of vomitus since last night with mostly contents of undigested food particles. Patient states she has been having this problem for over couple of months gotten worse over the last 1 week. States she had similar problem recently and last year for which she has had endoscopy with Dr. Ortiz. 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, has a bedpan with recent vomitus of food noted HEENT: Bitemporal wasting, extraocular movements intact, moist mucous membranes Neck: Supple Respiratory: Bibasilar crackles, no wheezes, no accessory muscle use Cardiovascular: Regular rate and rhythm, no gallops or rubs Abdomen: Soft, nontender, doughy texture, positive bowel sounds Extremities: Trace edema bilaterally in lower extremities, muscle wasting noted Skin: Scattered sores and bruises in different stages of healing with iatrogenic changes noted to the upper extremities in particular from blood draws Neuro: Speech clear, face symmetric, moves all extremities, no involuntary movements noted Psych: Flat affect Data : 08/09/22 05:05 08/09/22 05:05 Micro: Microbiology 08/08/22 14:13 Blood Culture - Preliminary Blood NEGATIVE TO DATE 08/08/22 14:04 Blood Culture - Preliminary Blood NEGATIVE TO DATE 08/08/22 17:23 Urine Culture - Preliminary Urine,Clean Catch Gram Negative Rods A&P Assessment and plan (1) Nausea and vomiting: Follows up with Dr. Ortiz as an outpatient. Both gastric bypass surgery more than 20 years ago. Concerns for significant hiatal hernia. EGD earlier in the year in January showed GERD. Repeat EGD showed resolution of gastritis. Nausea and vomiting most likely secondary to gastritis. Protonix 40 mg IV twice daily, Carafate before meals and at bedtime. Care discussed in detail with Dr. Ortiz. Would like to follow-up with the patient as an outpatient. Banana bag. Followed by oral thiamine. Switch to clear liquid diet. Status: Acute (2) Pneumonia: Diagnosis at time of admission based on report of frequent vomiting, degree of vomiting occurring in the emergency room, abnormalities noted on CT imaging of the chest and laboratory findings today. She has had prior barium swallow and other outpatient work-up. COVID testing was negative by PCR. Procalcitonin was elevated. Respiratory viral panel sent from the ER. Continue with Zosyn. Check sputum culture, MRSA swab. Status: Acute Qualifiers: Pneumonia type: aspiration pneumonia (3) Esophageal hiatal hernia: With food/fluid-filled esophagus noted on CT imaging. Had EGD on July 27 that did not demonstrate esophageal abnormalities. Previous marginal ulcers were healing and changes of prior Aviva-en-Y procedure were noted with a 20 mm gastrojejunostomy diameter. On chronic PPI. Status: Chronic (4) Status post gastric bypass for obesity: Supposed to eat frequent small meals but as evidenced by what she ate in the emergency room I think she probably eats more volume than she should at times resulting in frequent vomiting in addition to impact from reflux issues. Has seen Dr. Ortiz on an outpatient basis for a while. Status: Chronic (5) Grade I diastolic dysfunction: With diffuse body wall anasarca. Described pulmonary effusions presently felt to likely be secondary to aspiration. Has recently been started on diuretic therapy though it was held at discharge earlier this week after stay with almost 8 L negative fluid balance and someone with known orthostatic hypotension and frequent falls. Echocardiogram within the last 10 days showed an ejection fraction of 65%. Currently slightly hypovolemic. Has tachycardia. Poor oral intake. Hold off on dialysis. Start on gentle IV hydration. Status: Chronic (6) Orthostatic hypotension: Chronic diagnosis, follows with Dr. Pack. Is on Northera and midodrine. Review of prior discharge summary shows that fludrocortisone was discontinued earlier this week. Status: Chronic (7) Hypothyroidism: On chronic levothyroxine Status: Chronic Qualifiers: Hypothyroidism type: acquired Qualified Code(s): E03.9 - Hypothyroidism, unspecified (8) Macrocytic anemia: Status: Chronic Plan Full code. Protonix 40 mg twice daily Lovenox for DVT prophylaxis Discharge planning: Plan to discharge within next 24 hours if patient remains afebrile on clear liquid diet which is to be advanced very gradually within next 1 month to regular diet with outpatient follow-up with Dr. Ortiz. Plan to discharge on oral antibiotics for concern for aspiration pneumonia. 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
[2022-08-09] MEDS: pantoprazole 40 mg SDV IVP (18:19)
--- NOTE | 2022-08-09 18:28 | PC.NURSE ---
Patient given 1800 medications. Has about 50 ml of emesis with some medications in emesis.
--- NOTE | 2022-08-09 20:53 | ECG_ITS ---
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 Measurements Intervals [place] Rate: 106 P: 34 [place]: 124 QRS: 22 QRSD: 80 T: 6 QT: 317 QTc: 421 Interpretive Statements SINUS TACHYCARDIA LOW QRS VOLTAGE IN EXTREMITY LEADS [QRS DEFLECTION < 0.5 mV IN LIMB LEADS] MINIMAL ST DEPRESSION [0.025+ mV ST DEPRESSION] Compared to ECG 08/08/2022 19:59:34 ST (T wave) deviation now present Myocardial infarct finding no longer present Electronically Signed On 08-10-2022 14:27:58 CDT by Kedar Melgar M.D. [id number]
--- NOTE | 2022-08-09 20:55 | PC.NURSE ---
Chest Pain Pt. c/o chest tightness , located mid chest with no radiation into arms or jaw. Patient states that the chest tightness does worsen with a deep breath and that she occasionally has sharp pain. Patient does complain of feeling slightly short of breath. Vital signs checked temp 99.7 oral, bp 110/72, r18 even and unlabored, O2 sats 85% on room air, hr 107. Patient placed on 2L O2 per NC and sats came quickly up to 94%. Patient does not appear diaphoretic or to be in any distress at this time. Patient nurse notified and Dr. Olguin to be notified. Order placed for ekg.
[2022-08-09] MEDS: atorvastatin 40 mg Tablet 20 MG PO (21:21)
[2022-08-09] MEDS: mirtazapine 15 mg Tablet PO (21:22)
[2022-08-09] MEDS: sucralfate 1 gm/10 mL Oral Liq UDC PO (21:22)
[2022-08-09] MEDS: enoxaparin 40 mg/0.4 mL Syringe SUBCUT (22:35)
[2022-08-10] VITALS (30 sets, daily range): BP systolic 94–128; BP diastolic 54–87; PULSE 94–111; RESP 15–22; TEMP 36.7–37.4; O2SAT 86–99
[2022-08-10] MEDS: levofloxacin-dextrose 5 % 750 MG/150 ML PREMIX 100 MG IV (04:41)
[2022-08-10 04:51] LABS: Basophils % 0.2 %; Eosinophils % 0.3 %; Hematocrit 29.3 % (37.0-47.0); Hemoglobin 9.1 g/dL (11.5-15.3); Lymphocytes % 32.1 %; Mean Corpuscular HGB Conc 31.1 g/dL (30.0-36.0); Mean Corpuscular Volume 119.1 fl (81-99); Mean Platelet Volume 12.1 fL (7.4-10.4); Monocytes # 0.4 10^3/uL (0.2-0.9); Monocytes % 6.2 %; Neutrophils # 3.81 10^3/uL (1.8-7.7); Neutrophils % 60.7 %; Nucleated Red Blood Cells % 0 %; Platelet Count 145 10^3/cmm (130-400); Red Blood Count 2.46 10^6/uL (4.1-5.3); Red Cell Distribution Width 15.5 % (12.1-15.1); White Blood Count 6.3 10^3/uL (4.0-10.0)
[2022-08-10] MEDS: dextrose 5%-sod chloride 0.9% 1,000 ML 50 ML IV (04:53)
[2022-08-10 05:08] LABS: D Dimer 0.75 ug/mIFEU (0-0.59)
[2022-08-10 05:09] LABS: Alanine Aminotransferase 23 U/L (0-33); Alkaline Phosphatase 169 U/L (35-105); Anion Gap 12.2 (5-19); Aspartate Amino Transferase 29 U/L (0-32); Blood Urea Nitrogen 7 mg/dL (8-23); Calcium 8.5 mg/dL (8.5-10.5); Carbon Dioxide 26 mmol/L (22-29); Chloride 115 mmol/L (98-107); Cholesterol 66 mg/dL (0-200); Globulin 1.7 g/dL (1.3-4.6); Glomerular Filtration Rate 101.3 mL/min (90-130); Glucose 75 mg/dL (65-115); HDL Cholesterol 10 mg/dL (60-100); LDL Cholesterol Calculated 34 mg/dL (50-129); Osmolality Calculated 305 mOsm/kg (285-295); Potassium 4.2 mmol/L (3.5-5.1); Sodium 149 mmol/L (136-145); Total Bilirubin 1.4 mg/dL (0.15-1.2); Total Protein 4.7 g/dL (6.6-8.7); Triglycerides 109 mg/dL (0-150); VLDL Cholestrol Calculation 22 mg/dL (0-30)
[2022-08-10 05:24] LABS: Troponin T (5th) Once 28 ng/L (0-10)
[2022-08-10] MEDS: pantoprazole 40 mg SDV IVP ×2 (06:16→18:34)
[2022-08-10] MEDS: levothyroxine 125 mcg Tablet PO (06:22)
[2022-08-10] MEDS: sucralfate 1 gm/10 mL Oral Liq UDC PO ×3 (06:22→16:18)
[2022-08-10] MEDS: piperacillin-tazobactam 3.375 GM in sodium chloride 0.9% (plus) 50 ML IV ×3 (06:25→22:30)
[2022-08-10 09:05] LABS: Estmated Average Glucose 59; Hemoglobin A1C 3.7 % (4.0-6.0)
[2022-08-10] MEDS: gabapentin 400 mg Capsule 800 MG PO ×2 (10:19→16:17)
[2022-08-10] MEDS: thiamine 100 mg Tablet PO (10:20)
[2022-08-10] MEDS: potassium chloride ER 20 mEq Tablet 40 MEQ PO ×2 (10:20→18:34)
[2022-08-10] MEDS: duloxetine 60 mg Capsule PO (10:20)
[2022-08-10] MEDS: docusate sodium 100 mg Capsule PO (10:20)
[2022-08-10] MEDS: cetirizine 10 mg Tablet PO (10:21)
[2022-08-10] MEDS: BuSPIRONE 10 mg Tablet 30 MG PO ×2 (10:21→18:33)
[2022-08-10] MEDS: dextrose 5%-sod chloride 0.45% 1,000 ML 75 ML IV (10:22)
--- NOTE | 2022-08-10 11:47 | XR_ITS ---
WS: [id number] PORTABLE CHEST HISTORY: Change in respiratory status, Possible aspiration, COMPARISON: 08/08/2022 Significant change in appearance of lungs since the prior study. New areas of patchy consolidation in the mid and lower lung montero. No pneumothorax. Small bilateral pleural effusions. Cardiac size: Mildly prominent but also obscured by the adjacent airspace disease and pleural effusio ns. Mediastinum/Aorta: Mild ectasia aorta. No osseous abnormality seen. XR/XR chest 1V portable [id number] IMPRESSION: 1. New small bilateral pleural effusions. 2. New bilateral mid and lower lung field opacifications. May be due to aspira tion pneumonia. New onset since 08/08/2022.
[2022-08-10] MEDS: ipratropium-albuterol 3 mL Neb INHALATION ×2 (12:13→21:12)
--- NOTE | 2022-08-10 12:42 | XR_ITS ---
WS: [id number] Portable AP upright chest, 08/10/2022, 1252 hours Clinical Data: NG Tube placement Comparison: Portable chest, 08/10/2022, 1201 hours. Findings: The nasogastric tube has been inserted into a tortuous esophagus. It appears to end in the region of the fundus. The heart remains enlarged. The bilateral patchy opacities in both lower lobes remains the same. XR/XR chest 1V portable [id number] Impression: Insertion of nasogastric tube probably ending in the fundus of the stomach.
[2022-08-10 12:44] LABS: ABG PCO2 40.1 mmHg (35-45); ABG PH Result 7.39 (7.35-7.45); Alveolar-Arterial Oxygen Gradi 4.1 mmHg (5-10); Arterial Blood Gas Hematocrit 27.3 % (37-47); Base Excess ABG -0.5 mmol/L (-2.0-2.0); Blood Gas Allen Test Pos; Blood Gas Operator Identificat CAAK; Blood Gas Sample Site Radial, left; Blood Gas Sample Type Arterial; HCO3 ABG 24.4 mmol/L (22-26); HGB O2 Sat 90.7 % (95-100); Ionized Calcium Level - ABG 1.2 mmol/L (1.1-1.4); Methemoglobin 1.5 % (0.4-1.5); Oxygen Device NC; Oxygen Saturation ABG 93.1; PO2 ABG 67.8 mmHg (80.0-100.0); Potassium Level - ABG 4.1 mmol/L (3.5-5.0); Total Hemoglobin 8.9 g/dL (12-16)
[2022-08-10] MEDS: midodrine 5 mg TABLET 10 MG PO ×2 (13:27→18:31)
--- NOTE | 2022-08-10 13:59 | FL_ITS ---
WS: [id number] Limited, single contrast UPPER GI EXAMINATION HISTORY: post gastric bypass, recurrent aspiration pna, n/v COMPARISON: Recent CT 08/08/2022 FLUOROSCOPY TIME: 1min [id number] minutes. Very limited evaluation of the GE junction due to patient's clinical condition. Patient is unable to stand for this examination for any length of time. Gastrografin is given via the nasogastric tube. Th e tip of the nasogastric tube is within the large hiatal hernia. There are food products within the h iatal hernia. During contrast injection the contrast was noted to interspersed with the food products . There is contrast exiting from this large hiatal hernia although there probably is partial outlet o bstruction. Majority of the contrast remained within the hernia. FL/CO upper GI series [id number] IMPRESSION: 1. Large hiatal hernia and status post gastric bypass. 2. Favor this large hiatal hernia contains food products, bezoar-like material . 3. Liquid contrast did exit this large hernia but there may be a partial outle t obstruction. None of the food products did exit during this examination.
--- NOTE | 2022-08-10 14:09 | P.PN_ITS ---
Subjective Subjective: To tolerateNo acute vents overnight. Patient was doing well. On examination today she was on 1 L saturating more than 90%. At some clear liquids with occasional nausea. We discussed in detail regarding multiple small meals. Later in the day received a call from the RN taking care of patient that he had an episode of vomiting and aspiration after which her oxygen requirements went up and she was placed on high flow nasal cannula up to 15 L. Repeat chest x-ray was done which was consistent with aspiration pneumonitis. Because of recurrent episodes of vomiting leading to aspiration pneumonitis again reluctantly NG tube was placed given her history of gastric bypass surgery to prevent further aspiration and placed on intermittent suction. Vitals/I&O/Wt Last Vital Signs Temp 98.0 F 08/10/22 12:00 Pulse 110 H 08/10/22 12:16 Resp 20 H 08/10/22 12:16 BP 110/75 08/10/22 12:00 Pulse Ox 90 08/10/22 12:16 O2 Del Method 08/10/22 12:16 O2 Flow Rate 15 08/10/22 12:16 08/09/22 08/10/22 08/10/22 22:59 06:59 14:59 Intake Total 1011.2 / 1421.2 1219.167 / 2640.367 326.667 / 326.667 Output Total 100 / 250 0 / 250 Balance 911.2 / 1171.2 1219.167 / 2390.367 326.667 / 326.667 Weight last 48 hrs Weight 63.911 kg Weight 47.174 kg Weight 47.174 kg Physical Exam Narrative: Constitutional: Awake, alert, keeps hands over her eyes, cooperative but has a chronic ill appearance and 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, has a bedpan with recent vomitus of food noted HEENT: Bitemporal wasting, extraocular movements intact, moist mucous membranes Neck: Supple Respiratory: Bibasilar crackles, no wheezes, no accessory muscle use Cardiovascular: Regular rate and rhythm, no gallops or rubs Abdomen: Soft, nontender, doughy texture, positive bowel sounds Extremities: Trace edema bilaterally in lower extremities, muscle wasting noted Skin: Scattered sores and bruises in different stages of healing with iatrogenic changes noted to the upper extremities in particular from blood draws Neuro: Speech clear, face symmetric, moves all extremities, no involuntary movements noted Psych: Flat affect Data : 08/10/22 04:16 08/10/22 04:16 Micro: Microbiology 08/08/22 17:23 Urine Culture - Final Urine,Clean Catch Escherichia coli Klebsiella pneumoniae 08/08/22 14:13 Blood Culture - Preliminary Blood NEGATIVE TO DATE 08/08/22 14:04 Blood Culture - Preliminary Blood NEGATIVE TO DATE A&P Assessment and plan (1) Nausea and vomiting: Follows up with Dr. Ortiz as an outpatient. Both gastric bypass surgery more than 20 years ago. Concerns for significant hiatal hernia. EGD earlier in the year in January showed GERD. Repeat EGD showed resolution of gastritis. There were no concerns for mechanical obstruction versus strictures on the EGD done in 07/23 Nausea and vomiting most likely secondary to gastritis. Plan for upper GI series. Depending on the results will consult surgery for repeat endoscopy. Protonix 40 mg IV twice daily, Carafate before meals and at bedtime. LFTs have at baseline. Bilirubin around 1.5. Seems to be at baseline. Postc holecystectomy. N.p.o. except medications for now. Status: Acute (2) Respiratory failure with hypoxia: Secondary to aspiration pneumonitis. Less likely CHF. COVID-19 PCR negative. Oxygen supplementation keeping saturation of 88%. DuoNebs every 6 hour, budesonide twice daily. Chest vest, aggressive pulmonary toilet Status: Acute (3) Pneumonia: Diagnosis at time of admission based on report of frequent vomiting, degree of vomiting occurring in the emergency room, abnormalities noted on CT imaging of the chest and laboratory findings today. She has had prior barium swallow and other outpatient work-up. COVID testing was negative by PCR. Procalcitonin was elevated. Respiratory viral panel sent from the ER. Continue with Zosyn. MRSA swab pending. Sputum culture not collected yet. Status: Acute Qualifiers: Pneumonia type: aspiration pneumonia (4) Hypernatremia: Most likely secondary dehydration from poor oral intake. Switch from D5 NS to D5 half NS at 75 cc/h. Monitor BMP daily. Status: Acute (5) Esophageal hiatal hernia: With food/fluid-filled esophagus noted on CT imaging. Had EGD on July 27 that did not demonstrate esophageal abnormalities. Previous marginal ulcers were healing and changes of prior Aviva-en-Y procedure were noted with a 20 mm gastrojejunostomy diameter. On chronic PPI. Status: Chronic (6) Status post gastric bypass for obesity: Supposed to eat frequent small meals but as evidenced by what she ate in the emergency room I think she probably eats more volume than she should at times resulting in frequent vomiting in addition to impact from reflux issues. Has seen Dr. Ortiz on an outpatient basis for a while. Status: Chronic (7) Grade I diastolic dysfunction: With diffuse body wall anasarca. Described pulmonary effusions presently felt to likely be secondary to aspiration. Has recently been started on diuretic therapy though it was held at discharge earlier this week after stay with almost 8 L negative fluid balance and someone with known orthostatic hypotension and frequent falls. Echocardiogram within the last 10 days showed an ejection fraction of 65%. Currently slightly hypovolemic. Has tachycardia. Poor oral intake. Hold off on diuretics. Start on gentle IV hydration. Status: Chronic (8) Orthostatic hypotension: Chronic diagnosis, follows with Dr. Pack. Is on Northera and midodrine. Review of prior discharge summary shows that fludrocortisone was discontinued ea rlier this week. Status: Chronic (9) Hypothyroidism: On chronic levothyroxine Status: Chronic Qualifiers: Hypothyroidism type: acquired Qualified Code(s): E03.9 - Hyp othyroidism, unspecified (10) Macrocytic anemia: Status: Chronic Plan Full code. Protonix 40 mg twice daily Lovenox for DVT prophylaxis N.p.o. except meds. NG tube in place. Discharge planning: Plan to discharge home with caregiver once medically stable. 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 Fw Diagnoses Nausea and vomiting R11.2 Respiratory failure with hypoxia J96.91 Pneumonia J18.9 Pneumonia type: aspiration pneumonia Hypernatremia E87.0 Esophageal hiatal hernia K44.9 Status post gastric bypass for obesity Z98.84 Grade I diastolic dysfunction I51.89 Orthostatic hypotension I95.1 Hypothyroidism E03.9 Hypothyroidism type: acquired Macrocytic anemia D53.9
[2022-08-10] MEDS: diatrizoate meglumine 120 mL Sol PO (16:09)
[2022-08-10] MEDS: rocuronium 10 mg/mL INJ 5mL 50 MG IVP (19:15)
--- NOTE | 2022-08-10 19:15 | XRR_ITS ---
PROCEDURE INFORMATION: Exam: XR Chest Exam date and time: 08/10/2022 7:22 PM Age: 62 years old Clinical indication: Device placement; Ng tube; Additional info: Inutbatiion TECHNIQUE: Imaging protocol: Radiologic exam of the chest. Views: 1 view. COMPARISON: CR XR chest 1V portable [id number] 08/10/2022 12:49 PM FINDINGS: Tubes, catheters and devices: Endotracheal tube is seen in the midline with tip approximately 2.4 cm from the prashant. Nasogastric tube is seen without change with tip in the left upper abdominal region. Lungs: There are mildly increased lung volumes. Slightly decreased left perihilar and basilar moderate interstitial and airspace opacities are seen. Increased [id number] right perihilar and basilar interstitial and airspace opacities are seen. Unchanged small bilateral pleural effusions. Pleural spaces: No pneumothorax. Heart/Mediastinum: The heart size is normal. Subcutaneous implanted cardiac device is seen overlying the left heart border. There is a mildly tortuous thoracic aorta. Bones/joints: No acute osseous abnormalities seen. Intraperitoneal space: Increased density material is seen in the midline upper abdomen. This may represent contrast in the stomach. Recommend correlation with clinical history. Surgical clips are seen in the right upper quadrant of the abdomen, likely related to prior cholecystectomy. XR/XR chest 1V portable [id number] IMPRESSION: 1. Endotracheal tube and nasogastric tube, as noted above. 2. Mildly increased lung volumes. Slightly decreased left perihilar and basilar moderate interstitial and airspace opacities. Increased [id number] right perihilar and basilar interstitial and airspace opacities. Unchanged small bilateral pleural effusions.
[2022-08-10] MEDS: dextrose 5%-sod chloride 0.9% 1,000 ML 100 ML IV (20:00)
--- NOTE | 2022-08-10 20:00 | PC.NURSE ---
Patient transferred to ICU 2 emergently by RT, med surg nurse Lauren, RN, and charge nurse, DAYAN Ibanez. Nurse reported patient found with oxygen sats 54% and unresponsive. Dr. Gaston at bedside with orders to intubate patient. Dr. Savage, ER physician came to bedside to assist with intubation. Verbal orders from Dr. Savage given at bedside for Etomidate 20 mg and Rocuronium 50mg IVP stat. Patient intubated at 1915. Bedside report given. Patients nurse reported giving Lasix 40 mg IVP. Mar did not reflect medication being scanned. RT reported patient aspirating around noon. Dr. Gaston gave verbal orders for Levophed gtt, Propofol gtt, Fentanyl gtt, and Vancomycin one time dose.
--- NOTE | 2022-08-10 20:11 | PM.CCNAC ---
Critical Care Event Note Requested emergently by hospitalist service to assist with intubation of patient. Patient appears lethargic on exam and is hypoxemic appearing to be quite ill. The patient also reportedly has been aspirating despite NG tube placement which is further worsened respiratory status. Given this I feel that proceeding with intubation is the correct course of action. See procedure note below. There was gastric contacts in the oropharynx and hypopharynx upon video laryngoscope visualization. The high probability of a clinically significant, sudden or life threatening deterioration of the patient's respiratory system(s) required my full and direct attention, intervention and personal management. The critical care time is as shown. This time is in addition to time spent performing any reported procedures but includes the following: [x] Data and vital sign review and interpretation [x] Patient assessment, examination and intervention [x] Documentation [x] Medication orders and management Critical Care Time Code activated: No Critical Care Time (min): 15 Procedures Intubation Time out performed: Yes Sedative: etomidate Mg given: 20 Paralytic: rocuronium Mg given: 50 Laryngoscope: fiber optic video scope ET tube size: 8 ET tube uncuffed: No Tube secured depth (cm): 23 Tube secured location: lips Tube placement confirmation: visualized tube passing through cords and equal breath sounds bilaterally Patient tolerated procedure: well and no complications Intubation complications: hypoxia (Despite preoxygenation starting oxygen saturation in the 80s, decreased less than 10% during procedure.) Coding Level of Care Code Acute 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
[2022-08-10 20:43] LABS: ABG PCO2 39.5 mmHg (35-45); ABG PH Result 7.38 (7.35-7.45); Arterial Blood Gas Hematocrit 28.4 % (37-47); Base Excess ABG -1.6 mmol/L (-2.0-2.0); Blood Gas Allen Test Pos; Blood Gas Sample Type Arterial; Carboxyhemoglobin 0.9 %THgb (0.4-20.1); HCO3 ABG 23.4 mmol/L (22-26); HGB O2 Sat 92.9 % (95-100); Ionized Calcium Level - ABG 1.2 mmol/L (1.1-1.4); Oxygen Saturation ABG 94.6; PO2 ABG 73.6 mmHg (80.0-100.0); Potassium Level - ABG 3.7 mmol/L (3.5-5.0); Total Hemoglobin 9.3 g/dL (12-16)
[2022-08-10 20:44] LABS: Alveolar-Arterial Oxygen Gradi 76.2 mmHg (5-10); Blood Gas Operator Identificat MONRO; Blood Gas Sample Site Radial, right; Blood Gas Tidal Volume 0.35; Oxygen Device VENT
[2022-08-10] MEDS: budesonide 0.5 mg/2 mL Neb INHALATION (21:12)
[2022-08-10] MEDS: vancomycin 1,000 MG in sodium chloride 0.9% 250 ML 250 MG IV (23:11)
[2022-08-11] VITALS (90 sets, daily range): BP systolic 72–121; BP diastolic 44–79; PULSE 75–110; RESP 18–20; TEMP 36.9–39; O2SAT 92–100
[2022-08-11] MEDS: enoxaparin 40 mg/0.4 mL Syringe SUBCUT (00:42)
[2022-08-11] MEDS: ipratropium-albuterol 3 mL Neb INHALATION ×4 (03:08→19:54)
[2022-08-11] MEDS: levofloxacin-dextrose 5 % 750 MG/150 ML PREMIX 100 MG IV (04:03)
[2022-08-11] MEDS: propofol 1,000 MG/100 ML INJ 1.92 MG IV (04:26)
[2022-08-11 05:01] LABS: Basophils % 0.4 %; Hematocrit 27.2 % (37.0-47.0); Lymphocytes # 1.4 10^3/uL (0.8-4.8); Lymphocytes % 28.4 %; Mean Corpuscular HGB Conc 29.4 g/dL (30.0-36.0); Mean Corpuscular Hemoglobin 36.7 pg (28.0-34.0); Mean Corpuscular Volume 124.8 fl (81-99); Mean Platelet Volume 12.1 fL (7.4-10.4); Monocytes # 0.4 10^3/uL (0.2-0.9); Neutrophils # 3.06 10^3/uL (1.8-7.7); Nucleated Red Blood Cells % 0 %; Platelet Count 105 10^3/cmm (130-400); Red Blood Count 2.18 10^6/uL (4.1-5.3); White Blood Count 4.9 10^3/uL (4.0-10.0)
[2022-08-11 05:24] LABS: Alanine Aminotransferase 21 U/L (0-33); Albumin Level 2.7 g/dL (3.5-5.2); Alkaline Phosphatase 126 U/L (35-105); Anion Gap 17.6 (5-19); Aspartate Amino Transferase 37 U/L (0-32); Blood Urea Nitrogen 8 mg/dL (8-23); Calcium 7.9 mg/dL (8.5-10.5); Carbon Dioxide 20 mmol/L (22-29); Chloride 115 mmol/L (98-107); Globulin 1.7 g/dL (1.3-4.6); Glomerular Filtration Rate 72.7 mL/min (90-130); Glucose 129 mg/dL (65-115); Osmolality Calculated 308 mOsm/kg (285-295); Potassium 3.6 mmol/L (3.5-5.1); Sodium 149 mmol/L (136-145); Total Bilirubin 0.9 mg/dL (0.15-1.2); Total Protein 4.4 g/dL (6.6-8.7)
[2022-08-11 05:55] LABS: Slide Review Slide Review Perform
[2022-08-11] MEDS: pantoprazole 40 mg SDV IVP ×2 (06:34→17:42)
[2022-08-11] MEDS: piperacillin-tazobactam 3.375 GM in sodium chloride 0.9% (plus) 50 ML IV ×3 (06:34→21:12)
[2022-08-11] MEDS: budesonide 0.5 mg/2 mL Neb INHALATION ×2 (07:50→19:54)
[2022-08-11] MEDS: dextrose 5%-sod chloride 0.9% 1,000 ML 100 ML IV ×2 (07:59→18:18)
--- NOTE | 2022-08-11 08:39 | PM.CONSULT ---
Providers/Reason For Consult Consulting Physician/Specialty*: Dr. Rajiv Perales, DO/General surgery Reason for Consult*: Possible retained food contents in hiatal hernia Attending Physician: Robin Gaston MD Primary Care Provider: Steve Cuellar MD History of Present Illness History of Present Illness Stefany Bassett is a 62 year old female with a history of gastric bypass 20 years ago who has been having frequent nausea and vomiting, per chart. She has had multiple EGDs and been diagnosed with gastritis. She presented to the hospital with nausea vomiting and aspiration pneumonia. Upper GI series done last night shows possible food contents in the proximal stomach, caught in a hiatal hernia causing potential partial outlet obstruction. Due to her aspiration she was intubated overnight. Review of Systems General: Reports: ROS unobtainable due to endotracheal tube Medications/Allergies Home Medications Medication Instructions Recorded Confirmed Last Taken Type atorvastatin 10 mg tablet 10 mg PO DAILY 11/22/20 08/09/22 08/08/22 History cetirizine 10 mg capsule (All Day 10 mg PO DAILY PRN allergy symptoms 11/22/20 08/09/22 08/01/22 History Allergy (cetirizine)) calcium carbonate 600 mg calcium 600 mg PO DAILY 06/13/21 08/09/22 08/08/22 History (1,500 mg) tablet (Calcium) cholecalciferol (vitamin D3) 125 125 mcg PO DAILY 06/13/21 08/09/22 08/08/22 History mcg (5,000 unit) capsule buspirone 30 mg tablet 30 mg PO BID #120 tabs 10/09/21 08/09/22 08/08/22 Rx rizatriptan 10 mg tablet (Maxalt) 10 mg PO Q2H PRN migraine headache 11/30/21 08/09/22 04/25/22 Rx #9 tabs alendronate 70 mg tablet (Fosamax) 70 mg PO Q7D 12/13/21 08/09/22 07/30/22 History gabapentin 800 mg tablet 800 mg PO TID pain 02/08/22 08/09/22 08/08/22 History midodrine 10 mg tablet 10 mg PO TID #90 tabs 02/16/22 08/09/22 08/08/22 07:00 Rx duloxetine 60 mg capsule,delayed 60 mg PO DAILY #30 caps 04/17/22 08/09/22 08/08/22 Rx release (Cymbalta) droxidopa 100 mg capsule (Northera) 100 mg PO TID #90 caps 07/23/22 08/09/22 Unknown Rx furosemide 40 mg tablet (Lasix) 40 mg PO BID 08/01/22 08/09/22 08/01/22 History levothyroxine 125 mcg tablet 125 mcg PO QAM 08/01/22 08/09/22 08/08/22 History mirtazapine 15 mg tablet 15 mg PO BEDTIME 08/01/22 08/09/22 08/07/22 History potassium chloride 20 mEq 40 meq PO BID 08/01/22 08/09/22 08/08/22 History tablet,extended release sucralfate 1 gram tablet 1 g PO BID 08/01/22 08/09/22 08/01/22 History zonisamide 25 mg capsule 50 mg PO BEDTIME 08/01/22 08/09/22 2 Weeks Ago History ~07/25/22 ondansetron 4 mg disintegrating 4 mg PO Q8H PRN nausea and 08/05/22 08/09/22 Unknown Rx tablet vomiting 5 days #14 tabs cyanocobalamin (vitamin B-12) 1,000 mcg PO DAILY 08/08/22 08/09/22 Unknown History 1,000 mcg tablet (Vitamin B-12) hydrocodone 7.5 mg-acetaminophen 1 tab PO Q6H PRN Pain 08/08/22 08/09/22 Unknown History 325 mg tablet pantoprazole 40 mg tablet,delayed 40 mg PO QAM 08/08/22 08/09/22 08/08/22 History release (Protonix) Allergies Allergy/AdvReac Type Severity Reaction Status Date / Time lithium Allergy Intermediate NAUSEA AND Verified 08/09/22 13:33 VOMITING lactose Allergy ADR-Gastrointestinal Verified 08/09/22 13:33 Upset adhesive tape AdvReac Intermediate ALGY-Rash Verified 08/09/22 13:33 Current Medications Generic Name Dose Route Start Last Admin Trade Name Freq PRN Reason Stop Dose Admin Acetaminophen 650 mg 08/08/22 21:55 08/09/22 03:54 Acetaminophen 325 Mg Tablet PO 650 mg Q6H PRN Administration Mild/Mod Pain Or Temp >/= 101 Hydrocodone Bitart/Acetaminophen 1 tab 08/08/22 21:55 08/08/22 22:58 Hydrocodone-Acetaminophen 7.5-325 Mg Tablet PO 1 tab Q6H PRN Administration MODERATE TO SEVERE PAIN Albuterol/Ipratropium 3 ml 08/10/22 20:00 08/11/22 07:50 Ipratropium-Albuterol 3 Ml Neb INHALATION 3 ml Q6H.RESP PRINCE Administration Budesonide 0.5 mg 08/10/22 20:00 08/11/22 07:50 Budesonide 0.5 Mg/2 Ml Neb INHALATION 0.5 mg BID.RESPIRATORY PRINCE Administration Buspirone HCl 30 mg 08/09/22 09:00 08/10/22 18:33 Buspirone 10 Mg Tablet PO 30 mg BID PRINCE Administration Duloxetine HCl 60 mg 08/09/22 09:00 08/10/22 10:20 Duloxetine 60 Mg Capsule PO 60 mg DAILY PRINCE Administration Enoxaparin Sodium 40 mg 08/08/22 22:00 08/11/22 00:42 Enoxaparin 40 Mg/0.4 Ml Syringe SUBCUT 40 mg Q24H PRINCE Administration Gabapentin 800 mg 08/08/22 21:55 08/11/22 00:36 Gabapentin 400 Mg Capsule PO Not Given TID PRINCE Levofloxacin/Dextrose 750 mg in 150 mls @ 100 mls/hr 08/08/22 22:30 08/11/22 06:14 Levaquin-D5w IV Infused Q24H PRINCE Infusion Protocol Piperacillin Sod/Tazobactam 50 mls @ 12.5 mls/hr 08/08/22 22:30 08/11/22 06:34 Sod 3.375 gm/ Sodium Chloride IV 12.5 mls/hr Q8H PRINCE Administration Protocol Dextrose/Sodium Chloride 1,000 mls @ 100 mls/hr 08/10/22 19:15 08/11/22 07:59 Dextrose 5%-Sod Chloride 0.9% IV 100 mls/hr .Q10H PRINCE Administration Fentanyl 2,500 mcg/ Sodium 250 mls @ 0 mls/hr 08/10/22 19:15 08/11/22 04:15 Chloride IV 100 mcg/hr .Q0M PRINCE 10 mls/hr Titration Protocol Per Protocol Propofol 1,000 mg in 100 mls @ 0 mls/hr 08/10/22 19:15 08/11/22 05:00 Diprivan IV 10 mcg/kg/min .Q0M PRINCE 3.84 mls/hr Titration Protocol Per Protocol Levothyroxine Sodium 125 mcg 08/09/22 06:00 08/10/22 06:22 Levothyroxine 125 Mcg Tablet PO 125 mcg QAM PRINCE Administration Midodrine 10 mg 08/10/22 12:00 08/10/22 18:31 Midodrine 5 Mg Tablet PO 10 mg 0600,1200,1800 PRINCE Administration Mirtazapine 15 mg 08/08/22 21:55 08/11/22 00:36 Mirtazapine 15 Mg Tablet PO Not Given BEDTIME PRINCE Non-Formulary Medication 100 mg 08/08/22 21:55 08/11/22 00:35 Droxidopa [Northera] PO Not Given TID PRINCE Ondansetron HCl 4 mg 08/08/22 21:55 08/09/22 21:30 Ondansetron 2 Mg/Ml Sdv 2 Ml IVP 4 mg Q6H PRN Administration vomiting, or N/V if npo Pantoprazole Sodium 40 mg 08/09/22 18:00 08/11/22 06:34 Pantoprazole 40 Mg Sdv IVP 40 mg Q12H PRINCE Administration Potassium Chloride 40 meq 08/09/22 09:00 08/10/22 18:34 Potassium Chloride Er 20 Meq Tablet PO 40 meq BID PRINCE Administration Sucralfate 1 gm 08/09/22 17:00 08/11/22 00:36 Sucralfate 1 Gm/10 Ml Oral Liq Udc PO Not Given AC&BEDTIME PRINCE Thiamine Mononitrate 100 mg 08/09/22 16:35 08/10/22 10:20 Thiamine 100 Mg Tablet PO 100 mg DAILY PRINCE Administration Zonisamide 50 mg 08/10/22 09:30 08/10/22 13:33 Zonisamide 100 Mg Capsule PO Not Given DAILY PRINCE PFSH Acute PFSH: Medical History (Updated 08/11/22 @ 08:46 by Rajiv Perales DO) Borderline personality disorder Chronic lumbar radiculopathy Chronic migraine without aura, intractable, with status migrainosus DDD (degenerative disc disease), lumbar Generalized anxiety disorder Grade I diastolic dysfunction History of stress test 12/2021 Hyperlipidemia Hypoalbuminemia Hypothyroidism Macrocytic anemia Major depression, recurrent, full remission Marginal ulcer Minor neurocognitive disorder Orthostatic hypotension Osteoporosis Post-traumatic stress disorder, chronic Pouchitis 04/26/2022 Psychiatric care Surgical History (Updated 08/11/22 @ 08:46 by Rajiv Perales DO) History of 2 sections History of carpal tunnel surgery of left wrist History of esophagogastroduodenoscopy (EGD) 07/27/2022 04/26/2022 Hx of appendectomy Hx of bilateral salpingectomy Hx of cholecystectomy Hx of colectomy bowel obstruction 11/2012 Hx of gastric bypass Hx of hernia repair Hx of hysterectomy Hx of knee surgery Right Hx of shoulder surgery Left Hx of tubal ligation Family History Other CAD (coronary artery disease) Cancer Diabetes Hyperlipidemia Hypertension Stroke Social History Smoking and tobacco status: never smoked Alcohol intake: never Substance/Drug Use: never Adopted: No Lives independently: Yes Household members: spouse and other Details: Grandson Housing: House Marital status: Marital status details: 27 years Number of children: 2 Number of grandchildren: 1 Highest education level completed: Associate Degree: Occupational, Technical, Vocational Program Education level details: Business service: No Current occupational status: disabled Current occupational exposures/hazards: No Pets and animals: Yes Pets & animals: cat(s), dog(s) and farm animals Farm Animals: other Leisure activites: other Leisure activities details: watch TV Sexually active: Yes Current gender identity: Female Alexandra/Mandaeism: Yarsanism Special alexandra needs: No Agree to transfusion: Yes Financial difficulty paying for basics: Very Hard Vitals/I&O/Wt Last Vital Signs Temp 99.8 F H 08/11/22 05:45 Pulse 106 H 08/11/22 07:50 Resp 18 08/11/22 07:52 BP 94/59 08/11/22 06:30 Pulse Ox 97 08/11/22 07:52 O2 Del Method 08/11/22 07:50 O2 Flow Rate 10 08/10/22 16:13 FiO2 50 08/11/22 07:52 08/10/22 08/11/22 08/11/22 22:59 06:59 14:59 Intake Total 50 / 843.515 7044.004 / 1615.671 Output Total 400 / 400 1000 / 1400 Balance -350 / -23.333 239.004 / 215.671 Weight last 48 hrs Weight 140 lb 14.4 oz Physical Exam Narrative: General : Patient is well developed , intubated Head : Normal cephalic, a-traumatic. Lungs : Equal chest rise bilaterally, no use of accessory muscles, trachea is midline. Cor : Tachycardic and rhythm are normal. Abdomen : Soft, ND, NT, no g/r/m Extremities : No edema, no cyanosis or clubbing, dorsalis pedis pulses are present bilaterally, non-tender to palpation of calves. Upper extremities are normal bilaterally. Urinary Catheter Management: Dodd: Cath Placed During This Visit: yes Reason for Continuing Indwelling Catheter: Accurate Measurement of Urinary Output in Critically Ill Patients Urinary Catheter Date of Insertion: 08/11/22 Urinary Catheter Time of Insertion: 00:20 Data : 08/11/22 03:45 08/11/22 03:45 Micro: Microbiology 08/09/22 16:50 MRSA Culture - Final Nose 08/08/22 17:23 Urine Culture - Final Urine,Clean Catch Escherichia coli Klebsiella pneumoniae A&P Assessment and plan (1) Aspiration pneumonia: Status: Acute (2) Hx of gastric bypass: Status: Acute Plan Possible partial outlet obstruction EGD The risks and benefits of the procedure, including bleeding, infection, intestinal perforation requiring surgery, missed lesion, or explained to the patient's . He is understanding of the risks and wishes to proceed. Coding Level of Care Code Acute Airborne And Air Delivery Specialist for [facility] Fwd Diagnoses Aspiration pneumonia J69.0 Hx of gastric bypass Z98.84
--- NOTE | 2022-08-11 08:43 | PC.NURSE ---
Telephone consent obtained for EGD with Dr. Perales from . GI lab on unit to prep from EDG.
--- NOTE | 2022-08-11 09:09 | PC.NURSE ---
EDG at bedside complete.
[2022-08-11] MEDS: rocuronium 10 mg/mL INJ 5mL 50 MG (09:10)
[2022-08-11] MEDS: albumin 12.5 GM/250 ML VIAL IV (09:49)
[2022-08-11] MEDS: calcium gluconate 0.9% NaCL 1 GM/50 ML PREMIX IV (10:00)
[2022-08-11] MEDS: potassium chloride oral liq 20 mEq/15 mL UDC 40 MEQ PO ×2 (10:01→17:42)
[2022-08-11 10:15] LABS: Procalcitonin 2.13 ng/mL (0-0.5)
--- NOTE | 2022-08-11 10:33 | ANES.PREANE2 ---
Pre-Anesthetic Assessment Height/Weight: Height 1.57 m Weight 63.911 kg Temp Pulse Resp BP Pulse Ox O2 Del Method O2 Flow Rate 102.2 F H 108 H 18 82/57 92 10 08/11/22 08:00 08/11/22 08:00 08/11/22 09:36 08/11/22 08:00 08/11/22 09:36 08/11/22 08:00 08/10/22 16:13 FiO2 60 08/11/22 09:36 Preop Diagnosis: Gastrojejunostomy ulcers Operation Date: 08/11/22 09:00 Proposed Procedures p EGD(Not Applicable) - Rajiv Perales DO Familial anesthetic complications: none Was Beta Buddy taken within 24 hours: N/A Was Clonidine taken within 24 hours: N/A Social No alcohol and No tobacco Exam Intubated, sedated on vent, slightly hypotensive Airway Comments: Comments: ETT Pulmonary aspiration pneumonia CV/HEM Anemia Metabolic Hyperlipidemia and Thyroid Disease Musc/skel Lower Back Pain Neuropsych Bipolar Anesthetic Plan ASA status: 4 Anesthesia: General Medications/Allergies Home Medications Medication Instructions Recorded Confirmed Last Taken Type atorvastatin 10 mg tablet 10 mg PO DAILY 11/22/20 08/09/22 08/08/22 History cetirizine 10 mg capsule (All Day 10 mg PO DAILY PRN allergy symptoms 11/22/20 08/09/22 08/01/22 History Allergy (cetirizine)) calcium carbonate 600 mg calcium 600 mg PO DAILY 06/13/21 08/09/22 08/08/22 History (1,500 mg) tablet (Calcium) cholecalciferol (vitamin D3) 125 125 mcg PO DAILY 06/13/21 08/09/22 08/08/22 History mcg (5,000 unit) capsule buspirone 30 mg tablet 30 mg PO BID #120 tabs 10/09/21 08/09/22 08/08/22 Rx rizatriptan 10 mg tablet (Maxalt) 10 mg PO Q2H PRN migraine headache 11/30/21 08/09/22 04/25/22 Rx #9 tabs alendronate 70 mg tablet (Fosamax) 70 mg PO Q7D 12/13/21 08/09/22 07/30/22 History gabapentin 800 mg tablet 800 mg PO TID pain 02/08/22 08/09/22 08/08/22 History midodrine 10 mg tablet 10 mg PO TID #90 tabs 02/16/22 08/09/22 08/08/22 07:00 Rx duloxetine 60 mg capsule,delayed 60 mg PO DAILY #30 caps 04/17/22 08/09/22 08/08/22 Rx release (Cymbalta) droxidopa 100 mg capsule (Northera) 100 mg PO TID #90 caps 07/23/22 08/09/22 Unknown Rx furosemide 40 mg tablet (Lasix) 40 mg PO BID 08/01/22 08/09/22 08/01/22 History levothyroxine 125 mcg tablet 125 mcg PO QAM 08/01/22 08/09/22 08/08/22 History mirtazapine 15 mg tablet 15 mg PO BEDTIME 08/01/22 08/09/22 08/07/22 History potassium chloride 20 mEq 40 meq PO BID 08/01/22 08/09/22 08/08/22 History tablet,extended release sucralfate 1 gram tablet 1 g PO BID 08/01/22 08/09/22 08/01/22 History zonisamide 25 mg capsule 50 mg PO BEDTIME 08/01/22 08/09/22 2 Weeks Ago History ~07/25/22 ondansetron 4 mg disintegrating 4 mg PO Q8H PRN nausea and 08/05/22 08/09/22 Unknown Rx tablet vomiting 5 days #14 tabs cyanocobalamin (vitamin B-12) 1,000 mcg PO DAILY 08/08/22 08/09/22 Unknown History 1,000 mcg tablet (Vitamin B-12) hydrocodone 7.5 mg-acetaminophen 1 tab PO Q6H PRN Pain 08/08/22 08/09/22 Unknown History 325 mg tablet pantoprazole 40 mg tablet,delayed 40 mg PO QAM 08/08/22 08/09/22 08/08/22 History release (Protonix) Allergies Allergy/AdvReac Type Severity Reaction Status Date / Time lithium Allergy Intermediate NAUSEA AND Verified 08/09/22 13:33 VOMITING lactose Allergy ADR-Gastrointestinal Verified 08/09/22 13:33 Upset adhesive tape AdvReac Intermediate ALGY-Rash Verified 08/09/22 13:33 Current Medications Generic Name Dose Route Start Last Admin Trade Name Freq PRN Reason Stop Dose Admin Hydrocodone Bitart/Acetaminophen 1 tab 08/08/22 21:55 08/08/22 22:58 Hydrocodone-Acetaminophen 7.5-325 Mg Tablet PO 1 tab Q6H PRN Administration MODERATE TO SEVERE PAIN Albuterol/Ipratropium 3 ml 08/10/22 20:00 08/11/22 07:50 Ipratropium-Albuterol 3 Ml Neb INHALATION 3 ml Q6H.RESP PRINCE Administration Budesonide 0.5 mg 08/10/22 20:00 08/11/22 07:50 Budesonide 0.5 Mg/2 Ml Neb INHALATION 0.5 mg BID.RESPIRATORY PRINCE Administration Buspirone HCl 30 mg 08/09/22 09:00 08/10/22 18:33 Buspirone 10 Mg Tablet PO 30 mg BID PRINCE Administration Duloxetine HCl 60 mg 08/09/22 09:00 08/10/22 10:20 Duloxetine 60 Mg Capsule PO 60 mg DAILY PRINCE Administration Enoxaparin Sodium 40 mg 08/08/22 22:00 08/11/22 00:42 Enoxaparin 40 Mg/0.4 Ml Syringe SUBCUT 40 mg Q24H PRINCE Administration Levofloxacin/Dextrose 750 mg in 150 mls @ 100 mls/hr 08/08/22 22:30 08/11/22 06:14 Levaquin-D5w IV Infused Q24H PRINCE Infusion Protocol Piperacillin Sod/Tazobactam 50 mls @ 12.5 mls/hr 08/08/22 22:30 08/11/22 06:34 Sod 3.375 gm/ Sodium Chloride IV 12.5 mls/hr Q8H PRINCE Administration Protocol Dextrose/Sodium Chloride 1,000 mls @ 100 mls/hr 08/10/22 19:15 08/11/22 07:59 Dextrose 5%-Sod Chloride 0.9% IV 100 mls/hr .Q10H PRINCE Administration Fentanyl 2,500 mcg/ Sodium 250 mls @ 0 mls/hr 08/10/22 19:15 08/11/22 04:15 Chloride IV 100 mcg/hr .Q0M PRINCE 10 mls/hr Titration Protocol Per Protocol Propofol 1,000 mg in 100 mls @ 0 mls/hr 08/10/22 19:15 08/11/22 05:00 Diprivan IV 10 mcg/kg/min .Q0M PRINCE 3.84 mls/hr Titration Protocol Per Protocol Levothyroxine Sodium 125 mcg 08/09/22 06:00 08/10/22 06:22 Levothyroxine 125 Mcg Tablet PO 125 mcg QAM PRINCE Administration Midodrine 10 mg 08/10/22 12:00 08/10/22 18:31 Midodrine 5 Mg Tablet PO 10 mg 0600,1200,1800 PRINCE Administration Mirtazapine 15 mg 08/08/22 21:55 08/11/22 00:36 Mirtazapine 15 Mg Tablet PO Not Given BEDTIME PRINCE Non-Formulary Medication 100 mg 08/08/22 21:55 08/11/22 00:35 Droxidopa [Northera] PO Not Given TID PRINCE Ondansetron HCl 4 mg 08/08/22 21:55 08/09/22 21:30 Ondansetron 2 Mg/Ml Sdv 2 Ml IVP 4 mg Q6H PRN Administration vomiting, or N/V if npo Pantoprazole Sodium 40 mg 08/09/22 18:00 08/11/22 06:34 Pantoprazole 40 Mg Sdv IVP 40 mg Q12H PRINCE Administration Potassium Chloride 40 meq 08/11/22 10:00 08/11/22 10:01 Potassium Chloride Oral Liq 20 Meq/15 Ml Udc PO 40 meq BID PRINCE Administration Sucralfate 1 gm 08/09/22 17:00 08/11/22 00:36 Sucralfate 1 Gm/10 Ml Oral Liq Udc PO Not Given AC&BEDTIME PRINCE Thiamine Mononitrate 100 mg 08/09/22 16:35 08/10/22 10:20 Thiamine 100 Mg Tablet PO 100 mg DAILY PRINCE Administration Zonisamide 50 mg 08/10/22 09:30 08/10/22 13:33 Zonisamide 100 Mg Capsule PO Not Given DAILY [facility] Medical History (Updated 08/11/22 @ 08:46 by Rajiv Perales DO) Borderline personality disorder Chronic lumbar radiculopathy Chronic migraine without aura, intractable, with status migrainosus DDD (degenerative disc disease), lumbar Generalized anxiety disorder Grade I diastolic dysfunction History of stress test 12/2021 Hyperlipidemia Hypoalbuminemia Hypothyroidism Macrocytic anemia Major depression, recurrent, full remission Marginal ulcer Minor neurocognitive disorder Orthostatic hypotension Osteoporosis Post-traumatic stress disorder, chronic Pouchitis 04/26/2022 Psychiatric care Surgical History (Updated 08/11/22 @ 08:46 by Rajiv Perales DO) History of 2 sections History of carpal tunnel surgery of left wrist History of esophagogastroduodenoscopy (EGD) 07/27/2022 04/26/2022 Hx of appendectomy Hx of bilateral salpingectomy Hx of cholecystectomy Hx of colectomy bowel obstruction 11/2012 Hx of gastric bypass Hx of hernia repair Hx of hysterectomy Hx of knee surgery Right Hx of shoulder surgery Left Hx of tubal ligation Family History Other CAD (coronary artery disease) Cancer Diabetes Hyperlipidemia Hypertension Stroke Social History Smoking and tobacco status: never smoked Alcohol intake: never Substance/Drug Use: never Adopted: No Lives independently: Yes Household members: spouse and other Details: Grandson Housing: House Marital status: Marital status details: 27 years Number of children: 2 Number of grandchildren: 1 Highest education level completed: Associate Degree: Occupational, Technical, Vocational Program Education level details: Business service: No Current occupational status: disabled Current occupational exposures/hazards: No Pets and animals: Yes Pets & animals: cat(s), dog(s) and farm animals Farm Animals: other Leisure activites: other Leisure activities details: watch TV Sexually active: Yes Current gender identity: Female Alexandra/Pentecostalism: Gnosticism Special alexandra needs: No Agree to transfusion: Yes Financial difficulty paying for basics: Very Hard Data Anesthesia : 08/11/22 03:45 08/11/22 03:45 Short CBC 08/10/22 08/11/22 Range/Units 04:16 03:45 WBC 6.3 4.9 (4.0-10.0) 10^3/uL Hgb 9.1 L 8.0 L (11.5-15.3) g/dL Hct 29.3 L 27.2 L (37.0-47.0) % MCV 119.1 H 124.8 H (81-99) fl Plt Count 145 105 L (130-400) 10^3/cmm Neut % (Auto) 60.7 63.0 % Neut # (Auto) 3.81 3.06 (1.8-7.7) 10^3/uL BMP 08/10/22 08/11/22 04:16 03:45 Sodium 149 H 149 H Potassium 4.2 3.6 Chloride 115 H 115 H Carbon Dioxide 26 20 L BUN 7 L 8 Creatinine 0.6 0.8 Glucose 75 129 H Calcium 8.5 7.9 L Cardiac Enzymes 08/10/22 Range/Units 04:16 Troponin T Gen 5 ng/L 28 H (0-10) ng/L Liver Function 08/10/22 08/11/22 Range/Units 04:16 03:45 Total Bilirubin 1.4 H 0.9 (0.15-1.2) mg/dL AST 29 37 H (0-32) U/L ALT 23 21 (0-33) U/L Alkaline Phosphatase 169 H 126 H (35-105) U/L Albumin 3.0 L 2.7 L (3.5-5.2) g/dL Coags 08/10/22 04:16 D-Dimer 0.75 H ABG 08/10/22 08/10/22 12:33 20:31 Specimen Type Arterial Arterial Sample Site Radial, left Radial, right ABG pH 7.39 7.38 ABG pCO2 40.1 39.5 ABG pO2 67.8 L 73.6 L ABG HCO3 24.4 23.4 ABG O2 Saturation 93.1 94.6 ABG Base Excess -0.5 -1.6 A-a O2 Gradient 4.1 L 76.2 H O2 Delivery Device Nc Vent O2 Liters/Min 15.0 FiO2 100.0 Tidal Volume 0.35 PEEP 5.0 Microbiology 08/11/22 09:50 Blood Culture - Preliminary Blood SPECIMEN COLLECTED 08/11/22 09:39 Blood Culture - Preliminary Blood SPECIMEN COLLECTED 08/09/22 16:50 MRSA Culture - Final Nose 08/08/22 17:23 Urine Culture - Final Urine,Clean Catch Escherichia coli Klebsiella pneumoniae Cardiac Studies: Echocardiogram 08/01/22 Sestamibi Stress Test (Cardiology) 12/22/21
--- NOTE | 2022-08-11 10:37 | ANE.PACU2 ---
Inpatient post-anesthesia follow up: Airway intact: Yes Vital signs: Temperature 102.2 F Pulse Rate 108 Respiratory Rate 18 Blood Pressure 82/57 Pulse Oximetry 92 Oxygen Delivery Me thod Mechanical Ventila tion Oxygen Flow Rate 10 Fraction of Inspir ed Oxygen 60 Hydration adequate: No Nausea and vomiting: No Pain level: 2 Additional Comments: Bedside procedure, stayed intubated and sedated
--- NOTE | 2022-08-11 10:38 | XRR_ITS ---
PROCEDURE INFORMATION: Exam: XR Chest Exam date and time: 08/11/2022 10:56 AM Age: 62 years old Clinical indication: NG tube advancement. TECHNIQUE: Imaging protocol: Radiologic exam of the chest. Views: 1 view. COMPARISON: CR XR chest 1V portable [id number] 08/10/2022 7:22 PM FINDINGS: Tubes, catheters and devices: Endotracheal tube with tip approximately 1.6 cm above the prashant. Nasogastric tube with tip in the gastric body. Probable loop recorder overlying the chest. Lungs: There are patchy pulmonary opacities bilaterally that are likely not significantly changed. Pleural spaces: Small bilateral pleural effusions. No pneumothorax. Heart/Mediastinum: The cardiac silhouette is grossly unchanged given differences in patient positioning. No gross evidence of pneumomediastinum. Bones/joints: No gross fracture. Intraperitoneal space: Surgical clips in the upper abdomen. No gross free air. Gastrointestinal tract: There are numerous dilated loops of small bowel concerning for small bowel obstruction. XR/XR chest 1V portable [id number] IMPRESSION: 1. Endotracheal tube with tip approximately 1.6 cm above the prashant. 2. Nasogastric tube with tip in the gastric body. 3. Patchy pulmonary opacities bilaterally that are likely not significantly changed. 4. Small bilateral pleural effusions. 5. Numerous dilated loops of small bowel concerning for small bowel obstruction.
[2022-08-11 11:11] LABS: Cortisol Random 25.42 ug/dL (2.47-19.5)
[2022-08-11] MEDS: acetaminophen 1,000 MG/100 ML PIGGYBACK 400 MG IV (11:21)
[2022-08-11] MEDS: sucralfate 1 gm/10 mL Oral Liq UDC PO ×3 (11:48→23:13)
[2022-08-11] MEDS: hydrocortisone 100 mg/2 mL SDV 50 MG IVP ×3 (11:48→23:17)
[2022-08-11] MEDS: midodrine 5 mg TABLET 10 MG PO ×2 (11:48→17:43)
[2022-08-11] MEDS: zinc gluconate 50 mg Tablet PO (11:48)
--- NOTE | 2022-08-11 12:05 | XRR_ITS ---
PROCEDURE INFORMATION: Exam: XR Abdomen Exam date and time: 08/11/2022 1:20 PM Age: 62 years old Clinical indication: Constipation. Possible small bowel obstruction. TECHNIQUE: Imaging protocol: Radiologic exam of the abdomen. Views: Frontal supine view of the abdomen. 1 View. COMPARISON: CT chest abd pel w con* 08/08/2022 3:08 PM FINDINGS: Tubes, catheters and devices: Nasogastric tube with tip in the gastric body. Loop recorder overlying the mediastinum. Heart/Mediastinum: The cardiac silhouette is approximately unchanged. Lungs: There are bibasilar opacities and bilateral pleural effusions, left greater than right. Gastrointestinal tract: There are multiple dilated loops of small bowel in the left upper quadrant. There is gas and stool throughout the majority of the colon. This could reflect small-bowel obstruction or ileus. Surgical clips are seen in the right upper quadrant. Intraperitoneal space: No gross free air. Bones/joints: No gross acute fracture. XR/XR KUB portable [id number] IMPRESSION: 1. Multiple dilated loops of small bowel in the left upper quadrant. There is gas and stool throughout the majority of the colon. This could reflect small-bowel obstruction or ileus. 2. Bibasilar opacities and bilateral pleural effusions, left greater than right.
--- NOTE | 2022-08-11 13:09 | PC.SOCIAL ---
IMM update IMM updated with patient's . Verbalized an understanding. Copy PG 2 provided. Initialled, dated, timed, and placed in chart.
[2022-08-11] MEDS: gabapentin 400 mg Capsule PO ×2 (14:51→20:58)
--- NOTE | 2022-08-11 16:03 | P.PN_ITS ---
Subjective Subjective: Yesterday evening patient went into respiratory distress and up being intubated. Today morning seen both EGD. Tolerated procedure okay. Currently on minimal Levophed of 1-2. Echo to 50% saturating more than 90%. No focal obstruction seen during endoscopy extensive food particle pushed through without difficulty. Also noticed 1 exposed staple during EGD. T-max during the day 102 Fahrenheit. Urine output minimal up to 250 cc. Tube feeds started. Patient tolerating appropriately for now. 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, has a bedpan with recent vomitus of food noted HEENT: Bitemporal wasting, extraocular movements intact, moist mucous membranes Neck: Supple Respiratory: Bibasilar crackles, no wheezes, no accessory muscle use Cardiovascular: Regular rate and rhythm, no gallops or rubs Abdomen: Soft, nontender, doughy texture, positive bowel sounds Extremities: Trace edema bilaterally in lower extremities, muscle wasting noted Skin: Scattered sores and bruises in different stages of healing with iatrogenic changes noted to the upper extremities in particular from blood draws Neuro: Speech clear, face symmetric, moves all extremities, no involuntary movements noted Psych: Flat affect Urinary Catheter Management: Dodd: Cath Placed During This Visit: yes Reason for Continuing Indwelling Catheter: Accurate Measurement of Urinary Output in Critically Ill Patients Urinary Catheter Date of Insertion: 08/11/22 Urinary Catheter Time of Insertion: 00:20 Data : 08/11/22 03:45 08/11/22 03:45 Micro: Microbiology 08/11/22 09:50 Blood Culture - Preliminary Blood SPECIMEN COLLECTED 08/11/22 09:39 Blood Culture - Preliminary Blood SPECIMEN COLLECTED 08/09/22 16:50 MRSA Culture - Final Nose 08/08/22 17:23 Urine Culture - Final Urine,Clean Catch Escherichia coli Klebsiella pneumoniae A&P Assessment and plan (1) Respiratory failure with hypoxia: Secondary to aspiration pneumonitis. Wean off FiO2 on ventilator setting keeping saturation over 88%. Depending on the hemodynamics we will plan to decrease sedation within next 24 hours in view of possible extubation. Follow-up sputum culture. MRSA negative but for now continue with vancomycin, Zosyn, Levaquin. Chest vest and aggressive pulmonary toilet. DuoNeb every 6 hour, respectively. Repeat chest x-ray in a.m. Hydrocortisone 50 mg every 6 hourly. Will also help with orthostatic hypotension and aspiration pneumonitis. Status: Acute (2) Nausea and vomiting: Most likely secondary to noncompliant with dietary intake in setting of post gastric bypass status leading to extensive food product collection at the junction causing pseudoobstruction of distal esophagus. Follows up with Dr. Ortiz as an outpatient. Post gastric bypass surgery more than 20 years ago. Most recent endoscopy in July 2022 which did not show any concern for hiatal hernia along with healing gastric ulcers. Nausea and vomiting currently secondary to extensive food products, bezoar like material seen in the upper GI series along with dilated distal esophagus versus hiatal hernia. Post EGD on 08/11. Food particles pushed through the junction. Continue with NG tube for now. Patient currently intubated. Protonix 40 mg IV twice daily, Carafate before meals and at bedtime. LFTs have at baseline. Bilirubin around 1.5. Seems to be at baseline. Postch olecystectomy. Status: Acute (3) Pneumonia: Treatment as #1. Follow-up sputum culture. Status: Acute Qualifiers: Pneumonia type: aspiration pneumonia (4) Severe protein-energy malnutrition: With A1c of 3.7, total cholesterol of 66. In setting of history of gastric bypass. Start on tube feeds with Jevity at 10 cc/h, increasing 5 cc every 6 hours with target goal of 30 cc/h. Will have dietitian consult. High chances of refeeding syndrome we will continue to monitor magnesium, phosphorus, calcium. Status: Acute (5) Hypernatremia: Continue with D5 half NS at 75 cc/h. Started on tube feeds with free water flushes 250 cc every 6 hours. Continue to monitor. Status: Acute (6) Status post gastric bypass for obesity: Supposed to eat frequent small meals but as evidenced by what she ate in the emergency room I think she probably eats more volume than she should at times resulting in frequent vomiting in addition to impact from reflux issues. Has seen Dr. Ortiz on an outpatient basis for a while. Status: Chronic (7) Grade I diastolic dysfunction: With diffuse body wall anasarca. Described pulmonary effusions presently felt to likely be secondary to aspiration. Has recently been started on diuretic therapy though it was held at discharge earlier this week after stay with almost 8 L negative fluid balance and someone with known orthostatic hypotension and frequent falls. Echocardiogram within the last 10 days showed an ejection fraction of 65%. Continue to monitor intake versus output. Can plan for Lasix in the next 24 hours depending on urine output. Status: Chronic (8) Orthostatic hypotension: Chronic diagnosis, follows with Dr. Pack. He is on midodrine. Not on Northera currently which was recently prescribed. Review of prior discharge summary shows that fludrocortisone was discontinued earlier this week. Check cortisol levels. Most likely patient not getting Northera as an outpatient as still awaiting prior authorization. Meanwhile we will start On peripheral cortisone once coming down on hydrocortisone. Status: Chronic (9) Hypothyroidism: On chronic levothyroxine Status: Chronic Qualifiers: Hypothyroidism type: acquired Qualified Code(s): E03.9 - Hypothyroidism, unspecified (10) Macrocytic anemia: Status: Chronic (11) Esophageal hiatal hernia: Status: Chronic (12) Gastric bezoar: Status: Acute Plan Analgesia: Propofol and fentanyl drip. Glycemic control: Not needed Nutrition: Tube feeds with Jevity. 10 cc/h will be increased 5 cc every 6 hours with target of 30 cc/h. Free water flushes 250 cc every 6 hours CODE STATUS: Discussed in detail with patient. She wants to remain full code for now. PUD prophylaxis: Protonix DVT prophylaxis: Patient developing thrombocytopenia. Hold off on Lovenox for now. Discharge planning: SNF versus home with home health once medically stable. Physical therapy evaluation. Continue with care at ICU care. Guarded prognosis given severe protein energy malnutrition. Care discussed in detail with patient's spouse at bedside. This documentation was created by [employer] crossing gateman software. Every effort was made to ensure accuracy of crossing gateman. Any obvious errors or omissions should be clarified with the author of the document. Attestations Medical Necessity Statement*: Requires further hospitalization for management of acute hypoxic respiratory failure in setting of aspiration pneumonitis, recurrent nausea and vomiting in setting of pseudoobstruction of gastric outlet secondary to bezoar like material-distal esophagus Critical Care Time: The high probability of a clinically significant, sudden or life threatening deterioration of the patient's [respiratory, cardiac, GI, renal] system(s) required my full and direct attention, intervention and personal management. The critical care time is as shown. This time is in addition to time spent performing any reported procedures but includes the following: [x] Data and vital sign review and interpretation [x] Patient assessment, examination and intervention [x] Documentation [x] Medication orders and management Critical Care Time (min): 70 Coding Level of Care Code Acute Process Design Chemical Engineer for Chg Fwd Diagnoses Respiratory failure with hypoxia J96.91 Nausea and vomiting R11.2 Pneumonia J18.9 Pneumonia type: aspiration pneumonia Severe protein-energy malnutrition E43 Hypernatremia E87.0 Status post gastric bypass for obesity Z98.84 Grade I diastolic dysfunction I51.89 Orthostatic hypotension I95.1 Hypothyroidism E03.9 Hypothyroidism type: acquired Macrocytic anemia D53.9 Esophageal hiatal hernia K44.9 Gastric bezoar T18.2XXA
[2022-08-11] MEDS: Fleet Enema 133 mL Enema PR (16:16)
[2022-08-11] MEDS: propofol 1,000 MG/100 ML INJ 9.59 MG IV (16:44)
[2022-08-11] MEDS: BuSPIRONE 10 mg Tablet 30 MG PO (17:43)
[2022-08-11] MEDS: ascorbic acid 500 mg Tablet 1000 MG PO (17:45)
[2022-08-11] MEDS: HYDROcodone-acetaminophen 7.5-325 mg Tablet 1 TAB PO (18:06)
[2022-08-11] MEDS: fludrocortisone 0.1 mg Tablet PO (18:31)
--- NOTE | 2022-08-11 19:00 | PC.NURSE ---
Upon arrival to the unit at 1900 fentanyl running @9mcg/hr, Propofol @20mcg/hr. Updated mar to reflect this.
[2022-08-11 20:15] LABS: Blood Urea Nitrogen 9 mg/dL (8-23); Calcium 7.8 mg/dL (8.5-10.5); Carbon Dioxide 20 mmol/L (22-29); Chloride 115 mmol/L (98-107); Glomerular Filtration Rate 72.7 mL/min (90-130); Glucose 163 mg/dL (65-115); Osmolality Calculated 306 mOsm/kg (285-295); Sodium 147 mmol/L (136-145)
[2022-08-11 20:16] LABS: Anion Gap 16.4 (5-19); Potassium 4.4 mmol/L (3.5-5.1)
[2022-08-11] MEDS: mirtazapine 15 mg Tablet PO (20:58)
[2022-08-12] VITALS (86 sets, daily range): BP systolic 90–143; BP diastolic 56–92; PULSE 68–96; RESP 18–23; TEMP 36.3–36.7; O2SAT 89–97
[2022-08-12] MEDS: ipratropium-albuterol 3 mL Neb INHALATION ×4 (03:30→20:05)
[2022-08-12] MEDS: dextrose 5%-sod chloride 0.9% 1,000 ML 100 ML IV (04:45)
[2022-08-12] MEDS: propofol 1,000 MG/100 ML INJ 7.67 MG IV (05:09)
[2022-08-12 05:12] LABS: Basophils % 0.2 %; Hematocrit 22.3 % (37.0-47.0); Hemoglobin 6.6 g/dL (11.5-15.3); Lymphocytes # 0.9 10^3/uL (0.8-4.8); Lymphocytes % 18.8 %; Mean Corpuscular HGB Conc 29.6 g/dL (30.0-36.0); Mean Corpuscular Hemoglobin 36.7 pg (28.0-34.0); Mean Corpuscular Volume 123.9 fl (81-99); Monocytes # 0.3 10^3/uL (0.2-0.9); Monocytes % 5.6 %; Neutrophils # 3.47 10^3/uL (1.8-7.7); Nucleated Red Blood Cells % 0.4 %; Platelet Count 93 10^3/cmm (130-400); Red Cell Distribution Width 15.8 % (12.1-15.1); White Blood Count 4.6 10^3/uL (4.0-10.0)
[2022-08-12] MEDS: levofloxacin-dextrose 5 % 750 MG/150 ML PREMIX 100 MG IV (05:14)
[2022-08-12] MEDS: pantoprazole 40 mg SDV IVP ×2 (05:22→18:11)
[2022-08-12] MEDS: hydrocortisone 100 mg/2 mL SDV 50 MG IVP ×2 (05:22→15:49)
[2022-08-12] MEDS: levothyroxine 125 mcg Tablet PO (05:30)
[2022-08-12] MEDS: sucralfate 1 gm/10 mL Oral Liq UDC PO ×3 (05:30→18:11)
[2022-08-12] MEDS: midodrine 5 mg TABLET 10 MG PO ×3 (05:30→18:11)
[2022-08-12] MEDS: piperacillin-tazobactam 3.375 GM in sodium chloride 0.9% (plus) 50 ML IV ×3 (05:39→21:15)
[2022-08-12 06:09] LABS: Slide Review Slide Review Perform
[2022-08-12 06:17] LABS: Alanine Aminotransferase 13 U/L (0-33); Alkaline Phosphatase 74 U/L (35-105); Anion Gap 15.5 (5-19); Aspartate Amino Transferase 23 U/L (0-32); Blood Urea Nitrogen 8 mg/dL (8-23); Calcium 7.3 mg/dL (8.5-10.5); Carbon Dioxide 19 mmol/L (22-29); Chloride 115 mmol/L (98-107); Globulin 1.3 g/dL (1.3-4.6); Glomerular Filtration Rate 101.3 mL/min (90-130); Glucose 231 mg/dL (65-115); Magnesium 1.4 mg/dL (1.7-2.3); Osmolality Calculated 308 mOsm/kg (285-295); Phosphorus 2.1 mg/dL (2.5-4.5); Potassium 3.5 mmol/L (3.5-5.1); Sodium 146 mmol/L (136-145); Total Bilirubin 0.8 mg/dL (0.15-1.2); Total Protein 4.3 g/dL (6.6-8.7)
[2022-08-12] MEDS: budesonide 0.5 mg/2 mL Neb INHALATION ×2 (07:50→20:06)
[2022-08-12] MEDS: zinc gluconate 50 mg Tablet PO (08:07)
[2022-08-12] MEDS: fludrocortisone 0.1 mg Tablet PO (08:07)
[2022-08-12] MEDS: gabapentin 400 mg Capsule PO ×3 (08:07→21:37)
[2022-08-12] MEDS: zonisamide 100 MG Capsule 50 MG PO (08:07)
[2022-08-12] MEDS: thiamine 100 mg Tablet PO (08:08)
[2022-08-12] MEDS: ascorbic acid 500 mg Tablet 1000 MG PO ×2 (08:08→18:11)
[2022-08-12] MEDS: duloxetine 60 mg Capsule PO (08:08)
[2022-08-12] MEDS: BuSPIRONE 10 mg Tablet 30 MG PO ×2 (08:09→18:11)
[2022-08-12] MEDS: potassium chloride oral liq 20 mEq/15 mL UDC 40 MEQ PO ×2 (08:09→18:11)
[2022-08-12] MEDS: magnesium hydroxide 30 mL UDC PO ×2 (09:35→21:13)
[2022-08-12] MEDS: magnesium sulfate premix 2 GM/50 ML PIGGYBACK IV (09:35)
[2022-08-12] MEDS: FUROsemide 10 mg/mL SDV 4mL 40 MG IVP (09:35)
[2022-08-12] MEDS: sodium chloride 0.9% (100 ml) 100 ML 50 ML (13:06)
--- NOTE | 2022-08-12 14:36 | P.PN_ITS ---
Subjective Subjective: No acute events overnight. Patient has remained hemodynamically stable and afebrile. Levophed stopped yesterday evening. Saturations have maintained over 95%. FiO2 down to 45% with a PEEP of 8. Documented urine output of around 550 cc. Patient tolerated tube feeds well for now. Currently at goal of 30 cc/h. During examination in the morning on propofol of 20 and fentanyl has been switched off. Patient waking up to verbal stimulus. When again seen during the day patient has remained hemodynamically stable off Levophed. Following simple commands. Saturation has remained stable. Urine output has improved incredibly after IV Lasix. 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, has a bedpan with recent vomitus of food noted HEENT: Bitemporal wasting, extraocular movements intact, moist mucous membranes Neck: Supple Respiratory: Bibasilar crackles, no wheezes, no accessory muscle use Cardiovascular: Regular rate and rhythm, no gallops or rubs Abdomen: Soft, nontender, doughy texture, positive bowel sounds Extremities: Trace edema bilaterally in lower extremities, muscle wasting noted Skin: Scattered sores and bruises in different stages of healing with iatrogenic changes noted to the upper extremities in particular from blood draws Neuro: Speech clear, face symmetric, moves all extremities, no involuntary movements noted Psych: Flat affect Urinary Catheter Management: Dodd: Cath Placed During This Visit: yes Reason for Continuing Indwelling Catheter: Accurate Measurement of Urinary Output in Critically Ill Patients Urinary Catheter Date of Insertion: 08/11/22 Urinary Catheter Time of Insertion: 00:20 Data : 08/12/22 03:45 08/12/22 05:45 Micro: Microbiology 08/10/22 19:20 Gram Stain - Final Sputum - Endotracheal Tube Aspirate Sputum Culture - Preliminary 08/11/22 09:50 Blood Culture - Preliminary Blood NEGATIVE TO DATE 08/11/22 09:39 Blood Culture - Preliminary Blood NEGATIVE TO DATE A&P Assessment and plan (1) Respiratory failure with hypoxia: Secondary to aspiration pneumonitis. Wean off FiO2 on ventilator setting keeping saturation over 88%. Depending on the hemodynamics we will plan to decrease sedation within next 24 hours in view of possible extubation. Follow-up sputum culture. MRSA negative but for now continue with vancomycin, Zosyn, Levaquin. Chest vest and aggressive pulmonary toilet. DuoNeb every 6 hour, respectively. Repeat chest x-ray in a.m. Hydrocortisone 50 mg every 6 hourly. Will also help with orthostatic hypotension and aspiration pneumonitis. Status: Acute (2) Nausea and vomiting: Most likely secondary to noncompliant with dietary intake in setting of post gastric bypass status leading to extensive food product collection at the junction causing pseudoobstruction of distal esophagus. Follows up with Dr. Ortiz as an outpatient. Post gastric bypass surgery more than 20 years ago. Most recent endoscopy in July 2022 which did not show any concern for hiatal hernia along with healing gastric ulcers. Nausea and vomiting currently secondary to extensive food products, bezoar like material seen in the upper GI series along with dilated distal esophagus versus hiatal hernia. Post EGD on 08/11. Food particles pushed through the junction. Continue with NG tube for now. Patient currently intubated. Protonix 40 mg IV twice daily, Carafate before meals and at bedtime. LFTs have at baseline. Bilirubin around 1.5. Seems to be at baseline. Postcholecystectomy. Status: Acute (3) Pneumonia: Treatment as #1. Follow-up sputum culture. Status: Acute Qualifiers: Pneumonia type: aspiration pneumonia (4) Severe protein-energy malnutrition: With A1c of 3.7, total cholesterol of 66. In setting of history of gastric bypass. Start on tube feeds with Jevity at 10 cc/h, increasing 5 cc every 6 hours with target goal of 30 cc/h. Will have dietitian consult. High chances of refeeding syndrome we will continue to monitor magnesium, phosphorus, calcium. Status: Acute (5) Hypernatremia: Continue with D5 half NS at 75 cc/h. Started on tube feeds with free water flushes 250 cc every 6 hours. Continue to monitor. Status: Acute (6) Status post gastric bypass for obesity: Supposed to eat frequent small meals but as evidenced by what she ate in the emergency room I think she probably eats more volume than she should at times resulting in frequent vomiting in addition to impact from reflux issues. Has seen Dr. Ortiz on an outpatient basis for a while. Status: Chronic (7) Grade I diastolic dysfunction: With diffuse body wall anasarca. Described pulmonary effusions presently felt to likely be secondary to aspiration. Has recently been started on diuretic therapy though it was held at discharge earlier this week after stay with almost 8 L negative fluid balance and someone with known orthostatic hypotension and frequent falls. Echocardiogram within the last 10 days showed an ejection fraction of 65%. Continue to monitor intake versus output. Can plan for Lasix in the next 24 hours depending on urine output. Status: Chronic (8) Orthostatic hypotension: Chronic diagnosis, follows with Dr. Pack. He is on midodrine. Not on Northera currently which was recently prescribed. Review of prior discharge summary shows that fludrocortisone was discontinued earlier this week. Check cortisol levels. Most likely patient not getting Northera as an outpatient as still awaiting prior authorization. Meanwhile we will start On peripheral cortisone once coming down on hydrocortisone. Status: Chronic (9) Hypothyroidism: On chronic levothyroxine Status: Chronic Qualifiers: Hypothyroidism type: acquired Qualified Code(s): E03.9 - Hypothyroidism, unspecified (10) Macrocytic anemia: Status: Chronic (11) Esophageal hiatal hernia: Status: Chronic (12) Gastric bezoar: Status: Acute Plan Analgesia: Propofol and fentanyl drip. Glycemic control: Not needed Nutrition: Tube feeds with Jevity. 10 cc/h will be increased 5 cc every 6 hours with target of 30 cc/h. Free water flushes 250 cc every 6 hours CODE STATUS: Discussed in detail with patient. She wants to remain full code for now. PUD prophylaxis: Protonix DVT prophylaxis: Patient developing thrombocytopenia. Hold off on Lovenox for now. Discharge planning: SNF versus home with home health once medically stable. Physical therapy evaluation. Continue with care at ICU care. Guarded prognosis given severe protein energy malnutrition. Care discussed in detail with patient's spouse at bedside. This documentation was created by [employer] filament cutter software. Every effort was made to ensure accuracy of filament cutter. Any obvious errors or omissions should be clarified with the author of the document. Plan for the day: Continue with current ventilator settings. Plan for weaning trial in a.m. Restart fentanyl for analgesic effect. Can maintain fentanyl at 25 mcg/h if needed can decrease propofol. Continue both propofol and fentanyl together. For now continue with vancomycin, Zosyn, Levaquin. Hold off on a chest vest given precarious IV lines. Do not every 6 hour, budesonide twice daily. Wean off hydrocortisone 50 mg every 12 hourly. For protein energy malnutrition along with possible refeeding syndrome: Patient tolerating tube feeds well. For now continue at goal of 30 cc/h. Dietitian consult in a.m. Milk of magnesia 30 mg daily, senna Colace twice daily. Replete magnesium, phosphorus, calcium as needed. Stop IV fluids. Continue with tube feeds at 250 cc every 6 hour. IV Lasix 40 mg one-time. Monitor input output for now. Will repeat Lasix if needed during the day after blood transfusion. Keep mean artery pressure between 60 and 65. Continue with midodrine 10 mg daily, fludrocortisone 0.1 mg daily for now. Hemoglobin down to 6.6 today. No active signs of bleeding. Could be secondary to malnutrition and sepsis in setting of dilutional. Transfused unit of PRBC. Recheck BMP, CBC in AM. Continue with Protonix twice daily and Carafate. Hold off on insulin sliding scale. Acceptable blood sugar around 200 given critical illness and patient being in ICU. Attestations Medical Necessity Statement*: Requires further hospitalization for management of hypoxic respiratory failure secondary to aspiration pneumonia from persistent nausea and vomiting in setting of beozar and distal esophagus. Critical Care Time: The high probability of a clinically significant, sudden or life threatening deterioration of the patient's [pulmonary, renal, cardiac, GI] system(s) required my full and direct attention, intervention and personal management. The critical care time is as shown. This time is in addition to time spent performing any reported procedures but includes the following: [x] Data and vital sign review and interpretation [x] Patient assessment, examination and intervention [x] Documentation [x] Medication orders and management Critical Care Time (min): 90 Coding Level of Care Code Acute Motor Man for Chg Fwd Diagnoses Respiratory failure with hypoxia J96.91 Nausea and vomiting R11.2 Pneumonia J18.9 Pneumonia type: aspiration pneumonia Severe protein-energy malnutrition E43 Hypernatremia E87.0 Status post gastric bypass for obesity Z98.84 Grade I diastolic dysfunction I51.89 Orthostatic hypotension I95.1 Hypothyroidism E03.9 Hypothyroidism type: acquired Macrocytic anemia D53.9 Esophageal hiatal hernia K44.9 Gastric bezoar T18.2XXA
[2022-08-12] MEDS: propofol 1,000 MG/100 ML INJ 9.59 MG IV (15:49)
--- NOTE | 2022-08-12 20:32 | PC.NURSE ---
Bedside report given by Lupillo HANLEY. Patient was turned and restraints released.
[2022-08-12] MEDS: mirtazapine 15 mg Tablet PO (21:13)
[2022-08-13] VITALS (37 sets, daily range): BP systolic 86–138; BP diastolic 58–88; PULSE 68–101; RESP 18–23; TEMP 36.7–39; O2SAT 89–100
[2022-08-13] MEDS: sucralfate 1 gm/10 mL Oral Liq UDC PO ×5 (00:04→23:04)
[2022-08-13] MEDS: chlorhexidine gluconate 4% Btl 118 mL 1 APPLIC TOPICAL (03:14)
[2022-08-13 03:16] LABS: Glucose Point of Care 133 mg/dL (70-110)
[2022-08-13] MEDS: ipratropium-albuterol 3 mL Neb INHALATION ×4 (03:36→20:19)
[2022-08-13] MEDS: propofol 1,000 MG/100 ML INJ 9.59 MG IV (03:52)
[2022-08-13] MEDS: levofloxacin-dextrose 5 % 750 MG/150 ML PREMIX 100 MG IV (03:53)
[2022-08-13 04:21] LABS: Basophils % 0.2 %; Hematocrit 28.8 % (37.0-47.0); Lymphocytes # 1.1 10^3/uL (0.8-4.8); Lymphocytes % 16.3 %; Mean Corpuscular HGB Conc 31.3 g/dL (30.0-36.0); Mean Corpuscular Hemoglobin 33.7 pg (28.0-34.0); Mean Corpuscular Volume 107.9 fl (81-99); Monocytes # 0.5 10^3/uL (0.2-0.9); Monocytes % 7.9 %; Neutrophils # 4.32 10^3/uL (1.8-7.7); Neutrophils % 66.5 %; Nucleated Red Blood Cells % 0.3 %; Platelet Count 112 10^3/cmm (130-400); Red Blood Count 2.67 10^6/uL (4.1-5.3); Red Cell Distribution Width 23.7 % (12.1-15.1); White Blood Count 6.5 10^3/uL (4.0-10.0)
[2022-08-13 04:24] LABS: Alanine Aminotransferase 13 U/L (0-33); Albumin Level 2.8 g/dL (3.5-5.2); Alkaline Phosphatase 106 U/L (35-105); Anion Gap 13.8 (5-19); Aspartate Amino Transferase 27 U/L (0-32); Blood Urea Nitrogen 7 mg/dL (8-23); Calcium 7.5 mg/dL (8.5-10.5); Carbon Dioxide 22 mmol/L (22-29); Chloride 115 mmol/L (98-107); Globulin 1.7 g/dL (1.3-4.6); Glomerular Filtration Rate 101.3 mL/min (90-130); Glucose 133 mg/dL (65-115); Magnesium 1.8 mg/dL (1.7-2.3); Osmolality Calculated 304 mOsm/kg (285-295); Phosphorus 2.1 mg/dL (2.5-4.5); Potassium 3.8 mmol/L (3.5-5.1); Slide Review Slide Review Perform; Sodium 147 mmol/L (136-145); Total Bilirubin 0.8 mg/dL (0.15-1.2); Total Protein 4.5 g/dL (6.6-8.7)
[2022-08-13] MEDS: hydrocortisone 100 mg/2 mL SDV 50 MG IVP (04:57)
[2022-08-13] MEDS: piperacillin-tazobactam 3.375 GM in sodium chloride 0.9% (plus) 50 ML IV ×3 (05:05→21:37)
[2022-08-13] MEDS: pantoprazole 40 mg SDV IVP ×2 (05:14→18:14)
[2022-08-13] MEDS: levothyroxine 125 mcg Tablet PO (05:14)
[2022-08-13] MEDS: midodrine 5 mg TABLET 10 MG PO ×3 (05:14→18:14)
--- NOTE | 2022-08-13 05:40 | PC.NURSE ---
Patient has rested through the night on sedation. She has had multiple loose stools that are brown and seedy. Urine output was low 300ml dark venice. Patient's o2 drops during turns but regulates in the low 90s. Vent settings remain at 40%fio2 rate 18, peep 5, tidal 350. Propofol and Fentynal are currently being titrated down for expected extubation this A.M.. Patient is able to nod her head to answer questions and squeeze hands.
--- NOTE | 2022-08-13 06:00 | XR_ITS ---
WS: [id number] PORTABLE CHEST HISTORY: Aspiration pneumonia COMPARISON: 08/11/2022 Endotracheal tube remains in good position ending above the prashant. Nasogastric tube is present with the tip extending just below the GE junction. Bilateral patchy opacifications and pulmonary edema. Slightly greater opacification throughout the LE FT lung. No improvement since the prior examination. History small bilateral pleural effusions versus pleural thickening. No pneumothorax. Cardiac size: Normal. Mediastinum/Aorta: Mild prominence of the mediastinum due to associated airspace disease and edema. Prior rotator cuff repair on the LEFT. Single anchor in the humeral head. XR/XR chest 1V portable [id number] IMPRESSION: 1. Endotracheal tube in good position. 2. Continued bilateral pulmonary opacifications with no improvement. Probably combination of pneumonia and pulmonary edema. 3. Very small bilateral pleural effusions. 4. Nasogastric tube remains in good position.
[2022-08-13] MEDS: fludrocortisone 0.1 mg Tablet PO (08:38)
[2022-08-13] MEDS: duloxetine 60 mg Capsule PO (08:38)
[2022-08-13] MEDS: thiamine 100 mg Tablet PO (08:38)
[2022-08-13] MEDS: ascorbic acid 500 mg Tablet 1000 MG PO ×2 (08:38→18:13)
[2022-08-13] MEDS: gabapentin 400 mg Capsule PO ×3 (08:38→20:38)
[2022-08-13] MEDS: potassium chloride oral liq 20 mEq/15 mL UDC 40 MEQ PO ×2 (08:38→18:15)
[2022-08-13] MEDS: zinc gluconate 50 mg Tablet PO (08:38)
[2022-08-13] MEDS: BuSPIRONE 10 mg Tablet 30 MG PO ×2 (08:38→18:14)
[2022-08-13] MEDS: zonisamide 100 MG Capsule 50 MG PO (08:39)
[2022-08-13] MEDS: budesonide 0.5 mg/2 mL Neb INHALATION ×2 (09:14→20:19)
[2022-08-13] MEDS: FUROsemide 10 mg/mL SDV 4mL 40 MG IVP (09:39)
--- NOTE | 2022-08-13 10:34 | PC.CHAP ---
Pastoral Care Encounter/Spiritual Assessment Type of Contact [] Declined shearer helper visit [] Patient/Family/Request visit [] Outpatient visit [] Follow-up visit [] Physician referral [] Code/Alert [x] Routine visit [] Staff referral [] Actively dying [] Patient sleeping [x] Family support [] [] Out of room [] Palliative care [] [] Receiving care in room [] Pre-surgical visit [] Trauma [] Long length of stay [x] ICU visit [x] Other: vent being removed this afternoon Relational/Emotional Strength [] Patient feels connected with others/family/visitors/staff [] Distress [] Loneliness/isolation [] Abandonment Spirituality of Patient [] Person of Alexandra [] Attends Mormon of their Alexandra [] Believes in Prayer [] Reads Bible or Orthodox materials [] There are Spiritual issues to be addressed Record Changer Tester Interventions [x] Prayer [] Active listening [] Non-anxious presence [] Spiritual/emotional support [] Crisis/trauma care [] Spiritual counseling [] Bereavement support [] Provided bereavement packet [] Provided Bible/devotional materials [] Provided toy/stuffed animal, coloring book to patient or family member [] Provided Communion [] Anointing/[place] [] Salvation [x] Completed spiritual assessment [] Other: Impact on Illness or Injury [] Angry [] Fearful [] Anxious [] Often cries [] Exhaustion [] Unable to work [] Unable to attend methodist [] Unable to walk/stand [] Unable to read [] Unable to drive [] Unable to eat/drink [] Unable to sleep [] Unable to be with family [] Patient intubated [] Other: Summary Time spent with patient
--- NOTE | 2022-08-13 10:55 | PC.SOCIAL ---
IMM Update Patient remains intubated. IMM updated and reviewed w/ patients who is @ bedside. Copy provided and Copy in chart dated and initialed.
--- NOTE | 2022-08-13 15:58 | P.PN_ITS ---
Subjective Subjective: No acute events overnight. Today morning examination Petelin patient was on propofol of 10, fentanyl 25. Patient was awake and alert on FiO2 of 50% was saturating 90%. Patient was working well with ventilator. Patient was not ready for extubation because of poor R SBI. Patient received another dose of Lasix. Patient's oxygenation was improving. Urine output appropriate up to 1550 cc. Otherwise has remained hemodynamically stable and afebrile. As per nurse patient has been having episodes of delirium. She has been writing on the chart saying that people are out to kill her . Family at bedside. 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, has a bedpan with recent vomitus of food noted HEENT: Bitemporal wasting, extraocular movements intact, moist mucous membranes Neck: Supple Respiratory: Bibasilar crackles, no wheezes, no accessory muscle use Cardiovascular: Regular rate and rhythm, no gallops or rubs Abdomen: Soft, nontender, doughy texture, positive bowel sounds Extremities: Trace edema bilaterally in lower extremities, muscle wasting noted Skin: Scattered sores and bruises in different stages of healing with iatrogenic changes noted to the upper extremities in particular from blood draws Neuro: Speech clear, face symmetric, moves all extremities, no involuntary movements noted Psych: Flat affect Urinary Catheter Management: Dodd: Cath Placed During This Visit: yes Reason for Continuing Indwelling Catheter: Accurate Measurement of Urinary Output in Critically Ill Patients Urinary Catheter Date of Insertion: 08/11/22 Urinary Catheter Time of Insertion: 00:20 Data : 08/14/22 03:16 08/14/22 03:16 Micro: Microbiology 08/08/22 14:13 Blood Culture - Final Blood NO GROWTH AFTER 5 DAYS 08/08/22 14:04 Blood Culture - Final Blood NO GROWTH AFTER 5 DAYS 08/10/22 19:20 Gram Stain - Final Sputum - Endotracheal Tube Aspirate Sputum Culture - Final A&P Assessment and plan (1) Respiratory failure with hypoxia: Secondary to aspiration pneumonitis. Wean off FiO2 on ventilator setting keeping saturation over 88%. Depending on the hemodynamics we will plan to decrease sedation within next 24 hours in view of possible extubation. Follow-up sputum culture. MRSA negative but for now continue with vancomycin, Zosyn, Levaquin. Chest vest and aggressive pulmonary toilet. DuoNeb every 6 hour, respectively. Repeat chest x-ray in a.m. Hydrocortisone 50 mg every 6 hourly. Will also help with orthostatic hypotension and aspiration pneumonitis. Status: Acute (2) Nausea and vomiting: Most likely secondary to noncompliant with dietary intake in setting of post gastric bypass status leading to extensive food product collection at the [facility] causing pseudoobstruction of distal esophagus. Follows up with Dr. Ortiz as an outpatient. Post gastric bypass surgery more than 20 years ago. Most recent endoscopy in July 2022 which did not show any concern for hiatal hernia along with healing gastric ulcers. Nausea and vomiting currently secondary to extensive food products, bezoar like material seen in the upper GI series along with dilated distal esophagus versus hiatal hernia. Post EGD on 08/11. Food particles pushed through the junction. Continue with NG tube for now. Patient currently intubated. Protonix 40 mg IV twice daily, Carafate before meals and at bedtime. LFTs have at baseline. Bilirubin around 1.5. Seems to be at baseline. Postcholecystectomy. Status: Acute (3) Pneumonia: Treatment as #1. Follow-up sputum culture. Status: Acute Qualifiers: Pneumonia type: aspiration pneumonia (4) Severe protein-energy malnutrition: With A1c of 3.7, total cholesterol of 66. In setting of history of gastric bypass. Start on tube feeds with Jevity at 10 cc/h, increasing 5 cc every 6 hours with target goal of 30 cc/h. Will have dietitian consult. High chances of refeeding syndrome we will continue to monitor magnesium, phosphorus, calcium. Status: Acute (5) Hypernatremia: Continue with D5 half NS at 75 cc/h. Started on tube feeds with free water flushes 250 cc every 6 hours. Continue to monitor. Status: Acute (6) Status post gastric bypass for obesity: Supposed to eat frequent small meals but as evidenced by what she ate in the emergency room I think she probably eats more volume than she should at times resulting in frequent vomiting in addition to impact from reflux issues. Has seen Dr. Ortiz on an outpatient basis for a while. Status: Chronic (7) Grade I diastolic dysfunction: With diffuse body wall anasarca. Described pulmonary effusions presently felt to likely be secondary to aspiration. Has recently been started on diuretic therapy though it was held at discharge earlier this week after stay with almost 8 L negative fluid balance and someone with known orthostatic hypotension and frequent falls. Echocardiogram within the last 10 days showed an ejection fr action of 65%. Continue to monitor intake versus output. Can plan for Lasix in the next 24 hours depending on urine output. Status: Chronic (8) Orthostatic hypotension: Chronic diagnosis, follows with Dr. Pack. He is on midodrine. Not on Northera currently which was recently prescribed. Review of prior discharge summary shows that fludrocortisone was discontinued earlier this week. Check cortisol levels. Most likely patient not getting Northera as an outpatient as still awaiting prior authorization. Meanwhile we will start On peripheral cortisone once coming down on hydrocortisone. Status: Chronic (9) Hypothyroidism: On chronic levothyroxine Status: Chronic Qualifiers: Hypothyroidism type: acquired Qualified Code(s): E03.9 - Hypothyroidism, unspecified (10) Macrocytic anemia: Status: Chronic (11) Esophageal hiatal hernia: Status: Chronic (12) Gastric bezoar: Status: Acute Plan Analgesia: Propofol and fentanyl drip. Glycemic control: Not needed Nutrition: Tube feeds with Jevity. 10 cc/h will be increased 5 cc every 6 hours with target of 30 cc/h. Free water flushes 250 cc every 6 hours CODE STATUS: Discussed in detail with patient. She wants to remain full code for now. PUD prophylaxis: Protonix DVT prophylaxis: Patient developing thrombocytopenia. Hold off on Lovenox for now. Discharge planning: SNF versus home with home health once medically stable. Physical therapy evaluation. Continue with care at ICU care. Guarded prognosis given severe protein energy malnutrition. Care discussed in detail with patient's spouse at bedside. This documentation was created by [employer] director learning services software. Every effort was made to ensure accuracy of director learning services. Any obvious errors or omissions should be clarified with the author of the document. Plan for the day: Continue with minimal ventilator settings. Weaning trial in a.m. Plan to stop sedation early in the morning and transition over to pressure support. Wean down hydrocortisone to 25 mg every 12 hourly. Stop vancomycin as MRSA is negative. Continue with Zosyn. Continue with tube feeds. 250 cc every 4 hours of free water flushes. Continue with nebulization with DuoNebs and budesonide. Replete electrolytes. Continue with midodrine 10 mg 3 times a day and fludrocortisone 0.1 mg daily. Attestations Medical Necessity Statement*: Requires further hospitalization for hypoxic respiratory failure secondary to aspiration pneumonia, severe malnourishment in setting of gastric bypass surgery Critical Care Time: The high probability of a clinically significant, sudden or life threatening deterioration of the patient's [pulmonary, renal, neurological] system(s) required my full and direct attention, intervention and personal management. The critical care time is as shown. This time is in addition to time spent performing any reported procedures but includes the following: [x] Data and vital sign review and interpretation [x] Patient assessment, examination and intervention [x] Documentation [x] Medication orders and management Critical Care Time (min): 50 Coding Level of Care Code Acute Audio Engineer for [facility] Diagnoses Respiratory failure with hypoxia J96.91 Nausea and vomiting R11.2 Pneumonia J18.9 Pneumonia type: aspiration pneumonia Severe protein-energy malnutrition E43 Hypernatremia E87.0 Status post gastric bypass for obesity Z98.84 Grade I diastolic dysfunction I51.89 Orthostatic hypotension I95.1 Hypothyroidism E03.9 Hypothyroidism type: acquired Macrocytic anemia D53.9 Esophageal hiatal hernia K44.9 Gastric bezoar T18.2XXA
[2022-08-13] MEDS: hydrocortisone 100 mg/2 mL SDV 25 MG IVP (18:13)
[2022-08-13] MEDS: acetaminophen 325 mg/10.15 mL UDC PO (18:15)
[2022-08-13] MEDS: mirtazapine 15 mg Tablet PO (20:38)
[2022-08-13] MEDS: propofol 1,000 MG/100 ML INJ 11.5 MG IV (20:44)
[2022-08-14] VITALS (39 sets, daily range): BP systolic 84–133; BP diastolic 51–92; PULSE 76–113; RESP 16–30; TEMP 36.9–37.3; O2SAT 88–100
[2022-08-14] MEDS: ipratropium-albuterol 3 mL Neb INHALATION ×4 (02:59→20:05)
[2022-08-14 03:41] LABS: Basophils % 0.1 %; Hematocrit 29.4 % (37.0-47.0); Hemoglobin 9.2 g/dL (11.5-15.3); Lymphocytes % 27.6 %; Mean Corpuscular HGB Conc 31.3 g/dL (30.0-36.0); Mean Corpuscular Hemoglobin 33.7 pg (28.0-34.0); Mean Corpuscular Volume 107.7 fl (81-99); Mean Platelet Volume 12.6 fL (7.4-10.4); Monocytes # 0.8 10^3/uL (0.2-0.9); Monocytes % 11.3 %; Neutrophils % 58.5 %; Nucleated Red Blood Cells % 0.4 %; Platelet Count 108 10^3/cmm (130-400); Red Blood Count 2.73 10^6/uL (4.1-5.3); Red Cell Distribution Width 23.2 % (12.1-15.1); White Blood Count 7.2 10^3/uL (4.0-10.0)
[2022-08-14 04:09] LABS: Alanine Aminotransferase 16 U/L (0-33); Albumin Level 2.5 g/dL (3.5-5.2); Alkaline Phosphatase 155 U/L (35-105); Anion Gap 16.1 (5-19); Aspartate Amino Transferase 38 U/L (0-32); Blood Urea Nitrogen 8 mg/dL (8-23); Calcium 7.8 mg/dL (8.5-10.5); Carbon Dioxide 21 mmol/L (22-29); Chloride 115 mmol/L (98-107); Globulin 1.8 g/dL (1.3-4.6); Glomerular Filtration Rate 101.3 mL/min (90-130); Glucose 98 mg/dL (65-115); Osmolality Calculated 304 mOsm/kg (285-295); Phosphorus 2.3 mg/dL (2.5-4.5); Potassium 4.1 mmol/L (3.5-5.1); Sodium 148 mmol/L (136-145); Total Bilirubin 0.7 mg/dL (0.15-1.2); Total Protein 4.3 g/dL (6.6-8.7)
[2022-08-14] MEDS: hydrocortisone 100 mg/2 mL SDV 25 MG IVP ×2 (05:01→17:15)
[2022-08-14] MEDS: pantoprazole 40 mg SDV IVP ×2 (05:01→17:15)
[2022-08-14] MEDS: midodrine 5 mg TABLET 10 MG PO ×2 (05:01→11:16)
[2022-08-14] MEDS: sucralfate 1 gm/10 mL Oral Liq UDC PO ×2 (05:02→11:16)
[2022-08-14] MEDS: piperacillin-tazobactam 3.375 GM in sodium chloride 0.9% (plus) 50 ML IV ×3 (05:02→21:06)
[2022-08-14] MEDS: levothyroxine 125 mcg Tablet PO (05:02)
[2022-08-14] MEDS: propofol 1,000 MG/100 ML INJ 11.5 MG IV (05:14)
[2022-08-14] MEDS: budesonide 0.5 mg/2 mL Neb INHALATION ×2 (08:01→20:05)
[2022-08-14] MEDS: ascorbic acid 500 mg Tablet 1000 MG PO (08:48)
[2022-08-14] MEDS: potassium chloride oral liq 20 mEq/15 mL UDC 40 MEQ PO (08:48)
[2022-08-14] MEDS: zinc gluconate 50 mg Tablet PO (08:48)
[2022-08-14] MEDS: fludrocortisone 0.1 mg Tablet PO (08:48)
[2022-08-14] MEDS: BuSPIRONE 10 mg Tablet 30 MG PO (08:48)
[2022-08-14] MEDS: gabapentin 400 mg Capsule PO (08:48)
[2022-08-14] MEDS: thiamine 100 mg Tablet PO (08:48)
[2022-08-14] MEDS: zonisamide 100 MG Capsule 50 MG PO (08:49)
[2022-08-14] MEDS: duloxetine 60 mg Capsule PO (08:51)
--- NOTE | 2022-08-14 09:57 | PC.CHAP ---
Pastoral Care Encounter/Spiritual Assessment Type of Contact [] Declined cage shift manager visit [] Patient/Family/Request visit [] Outpatient visit [] Follow-up visit [] Physician referral [] Code/Alert [x] Routine visit [] Staff referral [] Actively dying [] Patient sleeping [x] Family support [] [] Out of room [] Palliative care [] [] Receiving care in room [] Pre-surgical visit [] Trauma [] Long length of stay [x] ICU visit [] Other: Relational/Emotional Strength [] Patient feels connected with others/family/visitors/staff [] Distress [] Loneliness/isolation [] Abandonment Spirituality of Patient [] Person of Alexandra [] Attends Orthodoxy of their Alexandra [] Believes in Prayer [] Reads Bible or Caodaism materials [] There are Spiritual issues to be addressed Oil [employer]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 Interventions [x] Prayer [] Active listening [] Non-anxious presence [] Spiritual/emotional support [] Crisis/trauma care [] Spiritual counseling [] Bereavement support [] Provided bereavement packet [] Provided Bible/devotional materials [] Provided toy/stuffed animal, coloring book to patient or family member [] Provided Communion [] Anointing/[place] [] Salvation [x] Completed spiritual assessment [] Other: Impact on Illness or Injury [] Angry [] Fearful [] Anxious [] Often cries [] Exhaustion [] Unable to work [] Unable to attend samaritan [] Unable to walk/stand [] Unable to read [] Unable to drive [] Unable to eat/drink [] Unable to sleep [] Unable to be with family [] Patient intubated [] Other: Summary Time spent with patient
[2022-08-14] MEDS: dexmedeTOMIDine 0.9 % NaCL 400 MCG/100 ML PREMIX IV (10:18)
[2022-08-14] MEDS: FUROsemide 10 mg/mL SDV 4mL 40 MG IVP (10:18)
--- NOTE | 2022-08-14 10:56 | PC.NURSE ---
PT HAS HAD A DECENT MORNING. THIS NURSE AND RT WAS ABLE TO WEAN DOWN SEDATION AND VENT SETTINGS. PT TOLERATED WELL. PT EXTUBATED AT 0958. PT IS TOLERATING EXTUBATION THUS FAR. CURRENTLY, SHE IS ON PRECEDEX PER DOCTORS ORDER. SHE IS RESTING IN BED. IS AT BEDSIDE. SHE IS CONTINUING TO WRITE NOTES INSTEAD OF SPEAK VERBALLY. SHE APPEARS TO BE A/O WITH SOME PERIODS OF HALLUCINATIONS/PARANOIA. DR RAMOS IS AWARE. PT THINKS STAFF IS TRYING TO HARM HER BUT WAS REASSURED BY THE DOCTOR AND THIS NURSE THAT NO ONE HERE IS GOING TO HARM HER, WE ARE HERE TRYING TO HELP HER. PT IS RESTING IN BED WITH AT BEDSIDE AND APPEARS TO BE DOING OKAY. WILL CONTINUE TO MONITOR.
[2022-08-14] MEDS: thiamine 500 MG in sodium chloride 0.9% (100 ml) 100 ML 210 MG IV (11:20)
[2022-08-14 11:25] LABS: Adenovirus Not Detected (NOT DETECT); Chlamydia Pneumoniae Not Detected (NOT DETECT); Coronavirus 229E,HKU1,NL63,OC4 Not Detected (NOT DETECT); Human Metapneumovirus Not Detected (NOT DETECT); Human Rhinovirus/Enterovirus Not Detected (NOT DETECT); Influenza A Not Detected (NOT DETECT); Influenza A H1 Not Detected (NOT DETECT); Influenza A H1-2009 Not Detected (NOT DETECT); Influenza A H3 Not Detected (NOT DETECT); Influenza B Not Detected (NOT DETECT); Mycoplasma Pneumoniae Not Detected (NOT DETECT); Parainfluenza Virus Type 1 Not Detected (NOT DETECT); Parainfluenza Virus Type 2 Not Detected (NOT DETECT); Parainfluenza Virus Type 3 Not Detected (NOT DETECT); Parainfluenza Virus Type 4 Not Detected (NOT DETECT); Respiratory Syncytial Virus A Not Detected (NOT DETECT); Respiratory Syncytial Virus B Not Detected (NOT DETECT); SARS-COV-2 Not Detected (NOT DETECT)
--- NOTE | 2022-08-14 14:52 | PC.NURSE ---
NG tube This nurse was alerted by PT that pt had pulled NG tube out. Nurse Trisha HANLEY notified physician.
[2022-08-14] MEDS: dextrose 5% 1,000 ML 75 ML IV (15:56)
[2022-08-14 16:32] LABS: Adenovirus Not Detected (Not Detected); Human Metapneumovirus Not Detected (Not Detected); Human Parainflu Virus 1 Not Detected (Not Detected); Human Parainflu Virus 2 Not Detected (Not Detected); Human Parainflu Virus 3 Not Detected (Not Detected); Human Rsv A Not Detected (Not Detected); Influenza A Not Detected (Not Detected); Influenza B Not Detected (Not Detected); Rhinovirus/Enterovirus Not Detected (Not Detected)
--- NOTE | 2022-08-14 16:32 | PC.NURSE ---
THROUGHOUT THE DAY THIS NURSE HAS BEEN EDUCATING PT AND PTS THE IMPORTANCE OF REMAINING NPO UNTIL SPEECH EVAL OR THE DOCTOR SAYS ITS OK. THIS NURSE STEPPED OFF UNIT FOR A MOMENT. NOTIFIED BY PHYSICAL THERAPIST THAT PT/PTS FAMILY HAD PULLED OUT NG TUBE. THIS NURSE WENT IN TO ASK THE PT WHAT HAD HAPPENED. THE PT EXPLAINS THAT THE WAS GIVING HER A DRINK OF WATER AND WHEN HE TOOK THE CUP AWAY HE PULLED OUT THE TUBE. PHYSICAL THERAPISTLALA ENTERED THE ROOM SHORTLY AFTER THIS HAPPENED AND HELPED CLEAN THE PT AND THE MESS UP. LALA THEN CAME AND GOT THIS NURSE AND TOLD ME WHAT HAD HAPPENED. PHYSICAL THERAPY CONTINUED TO WORK WITH PT AFTER THE INCIDENT. PTS O2 WAS DOING OK AT 88-90%. AFTER GETTING THE PT BACK TO BED PTS O2 CONTINUED TO DROP. RT NOTIFIED. NON-REBREATHER MASK PLACED ON PT AND THIS BEGAN TO HELP PTS O2 SATS. PT HAS NOT BEEN IN ANY RESP DISTRESS. DR RAMOS CALLED AND NOTIFIED OF THE INCIDENTS. DR RAMOS COME DOWN TO THE UNIT TO ASSESS PT AND DISCUSS THE IMPORTANCE OF PT REMAINING NPO. NEW ORDERS GIVEN BY DR RAMOS AND FOLLOWED OUT BY THIS NURSE WITHIN MY SCOPE OF PRACTICE. PT IS CURRENTLY ON HEATED HIGH FLOW; 40L @ 80%. PT IS SATING 93%. PT IS SITTING UP IN BED. PT IS NOT IN ANY DISTRESS. WILL CONTINUE TO MONITOR.
--- NOTE | 2022-08-14 16:53 | PM.PN ---
Subjective Subjective: No acute events overnight. Today morning patient was doing well with low ventilator settings and off sedation. She was transitioned over to pressure support and ultimately extubated to 7 L high flow nasal cannula. Prior to extubation patient refused to be extubated and had to be convinced. It seems patient has been having episodes of acute psychosis and when she thinks everybody is out to kill her and she is having audio and visual hallucinations. Patient is redirectable and is agreeable for extubation with family at bedside. During the day during physical therapy patient pulled out her NG tube and required higher amount of oxygen supplementation. Patient's was seen trying to feed her some liquids which he was asked not to because of concerns for aspiration pneumonia. T-max within 24 hours 102 Fahrenheit Vitals/I&O/Wt Last Vital Signs Temp 98.4 F 08/14/22 11:17 Pulse 104 H 08/14/22 16:00 Resp 25 H 08/14/22 16:00 BP 121/89 08/14/22 16:00 Pulse Ox 92 08/14/22 16:00 O2 Del Method 08/14/22 14:00 O2 Flow Rate 40 08/14/22 15:44 FiO2 80 08/14/22 15:44 08/14/22 08/14/22 08/14/22 06:59 14:59 22:59 Intake Total 451.343 / 5160.447 240.248 / 240.248 Output Total 450 / 2350 Balance 1.343 / 2810.447 240.248 / 240.248 Physical Exam Narrative: Constitutional: AAOx3, anxious, chronically ill-appearing HEENT: Bitemporal wasting, extraocular movements intact, moist mucous membranes Neck: Supple Respiratory: Bibasilar crackles, no wheezes, no accessory muscle use Cardiovascular: Regular rate and rhythm, no gallops or rubs Abdomen: Soft, nontender, doughy texture, positive bowel sounds Extremities: Trace edema bilaterally in lower extremities, muscle wasting noted Skin: Scattered sores and bruises in different stages of healing with iatrogenic changes noted to the upper extremities in particular from blood draws Neuro: Speech clear, face symmetric, moves all extremities, no involuntary movements noted Psych: Flat affect Urinary Catheter Management: Dodd: Cath Placed During This Visit: yes Reason for Continuing Indwelling Catheter: Accurate Measurement of Urinary Output in Critically Ill Patients Urinary Catheter Date of Insertion: 08/11/22 Urinary Catheter Time of Insertion: 00:20 Data : 08/14/22 03:16 08/14/22 03:16 Micro: Microbiology 08/08/22 14:13 Blood Culture - Final Blood NO GROWTH AFTER 5 DAYS 08/08/22 14:04 Blood Culture - Final Blood NO GROWTH AFTER 5 DAYS 08/10/22 19:20 Gram Stain - Final Sputum - Endotracheal Tube Aspirate Sputum Culture - Final A&P Assessment and plan (1) Respiratory failure with hypoxia: Secondary to aspiration pneumonitis. Wean off FiO2 on ventilator setting keeping saturation over 88%. Depending on the hemodynamics we will plan to decrease sedation within next 24 hours in view of possible extubation. Follow-up sputum culture. MRSA negative but for now continue with vancomycin, Zosyn, Levaquin. Chest vest and aggressive pulmonary toilet. DuoNeb every 6 hour, respectively. Repeat chest x-ray in a.m. Hydrocortisone 50 mg every 6 hourly. Will also help with orthostatic hypotension and aspiration pneumonitis. Status: Acute (2) Nausea and vomiting: Most likely secondary to noncompliant with dietary intake in setting of post gastric bypass status leading to extensive food product collection at the junction causing pseudoobstruction of distal esophagus. Follows up with Dr. Ortiz as an outpatient. Post gastric bypass surgery more than 20 years ago. Most recent endoscopy in July 2022 which did not show any concern for hiatal hernia along with healing gastric ulcers. Nausea and vomiting currently secondary to extensive food products, bezoar like material seen in the upper GI series along with dilated distal esophagus versus hiatal hernia. Post EGD on 08/11. Food particles pushed through the junction. Continue with NG tube for now. Patient currently intubated. Protonix 40 mg IV twice daily, Carafate before meals and at bedtime. LFTs have at baseline. Bilirubin around 1.5. Seems to be at baseline. Postcholecystectomy. Status: Acute (3) Pneumonia: Treatment as #1. Follow-up sputum culture. Status: Acute Qualifiers: Pneumonia type: aspiration pneumonia (4) Severe protein-energy malnutrition: With A1c of 3.7, total cholesterol of 66. In setting of history of gastric bypass. Start on tube feeds with Jevity at 10 cc/h, increasing 5 cc every 6 hours with target goal of 30 cc/h. Will have dietitian consult. High chances of refeeding syndrome we will continue to monitor magnesium, phosphorus, calcium. Status: Acute (5) Hypernatremia: Continue with D5 half NS at 75 cc/h. Started on tube feeds with free water flushes 250 cc every 6 hours. Continue to monitor. Status: Acute (6) Status post gastric bypass for obesity: Supposed to eat frequent small meals but as evidenced by what she ate in the emergency room I think she probably eats more volume than she should at times resulting in frequent vomiting in addition to impact from reflux issues. Has seen Dr. Ortiz on an outpatient basis for a while. Status: Chronic (7) Grade I diastolic dysfunction: With diffuse body wall anasarca. Described pulmonary effusions presently felt to likely be secondary to aspiration. Has recently been started on diuretic therapy though it was held at discharge earlier this week after stay with almost 8 L negative fluid balance and someone with known orthostatic hypotension and frequent falls. Echocardiogram within the last 10 days showed an ejection fraction of 65%. Continue to monitor intake versus output. Can plan for Lasix in the next 24 hours depending on urine output. Status: Chronic (8) Orthostatic hypotension: Chronic diagnosis, follows with Dr. Pack. He is on midodrine. Not on Northera currently which was recently prescribed. Review of prior discharge summary shows that fludrocortisone was discontinued earlier this week. Check cortisol levels. Most likely patient not getting Northera as an outpatient as still awaiting prior authorization. Meanwhile we will start On peripheral cortisone once coming down on hydrocortisone. Status: Chronic (9) Hypothyroidism: On chronic levothyroxine Status: Chronic Qualifiers: Hypothyroidism type: acquired Qualified Code(s): E03.9 - Hypothyroidism, unspecified (10) Macrocytic anemia: Status: Chronic (11) Esophageal hiatal hernia: Status: Chronic (12) Gastric bezoar: Status: Acute Plan Analgesia: Propofol and fentanyl drip. Glycemic control: Not needed Nutrition: Tube feeds with Jevity. 10 cc/h will be increased 5 cc every 6 hours with target of 30 cc/h. Free water flushes 250 cc every 6 hours CODE STATUS: Discussed in detail with patient. She wants to remain full code for now. PUD prophylaxis: Protonix DVT prophylaxis: Patient developing thrombocytopenia. Hold off on Lovenox for now. Discharge planning: SNF versus home with home health once medically stable. Physical therapy evaluation. Continue with care at ICU care. Guarded prognosis given severe protein energy malnutrition. Care discussed in detail with patient's spouse at bedside. This documentation was created by [employer] software tools engineer software. Every effort was made to ensure accuracy of software tools engineer. Any obvious errors or omissions should be clarified with the author of the document. Plan for the day: Repeat sputum culture, COVID-19 PCR. Continue with Zosyn. Patient having episodes of fevers. Cannot rule out fungal infection given aspiration. Started on fluconazole. Continue nebulization steroids as before. PICC line placement. TPN. IV Lasix 40 mg one-time. Attestations Medical Necessity Statement*: Requires further evaluation for respiratory failure secondary to aspiration pneumonia Time Spent in Patient Care: Greater than 35 minutes Coding Level of Care Code Acute [employer] Sticker for [facility] Diagnoses Respiratory failure with hypoxia J96.91 Nausea and vomiting R11.2 Pneumonia J18.9 Pneumonia type: aspiration pneumonia Severe protein-energy malnutrition E43 Hypernatremia E87.0 Status post gastric bypass for obesity Z98.84 Grade I diastolic dysfunction I51.89 Orthostatic hypotension I95.1 Hypothyroidism E03.9 Hypothyroidism type: acquired Macrocytic anemia D53.9 Esophageal hiatal hernia K44.9 Gastric bezoar T18.2XXA
--- NOTE | 2022-08-14 17:05 | PC.RESP ---
chest vest not done due to I.V on right breast
[2022-08-14] MEDS: fluconazole premix 100 MG in empty flexible container 1 EACH 50 MG IV (18:30)
[2022-08-15] VITALS (59 sets, daily range): BP systolic 69–158; BP diastolic 49–100; PULSE 74–118; RESP 16–34; TEMP 37.6; O2SAT 85–100
[2022-08-15] MEDS: ipratropium-albuterol 3 mL Neb INHALATION ×3 (01:51→19:55)
[2022-08-15 04:29] LABS: Basophils % 0.3 %; Eosinophils % 0.1 %; Hemoglobin 9.7 g/dL (11.5-15.3); Lymphocytes # 1.8 10^3/uL (0.8-4.8); Lymphocytes % 19.7 %; Mean Corpuscular HGB Conc 31.3 g/dL (30.0-36.0); Mean Corpuscular Volume 108.8 fl (81-99); Mean Platelet Volume 12.6 fL (7.4-10.4); Monocytes # 1.1 10^3/uL (0.2-0.9); Monocytes % 11.4 %; Neutrophils # 5.97 10^3/uL (1.8-7.7); Neutrophils % 64.3 %; Nucleated Red Blood Cells % 0 %; Platelet Count 96 10^3/cmm (130-400); Red Blood Count 2.85 10^6/uL (4.1-5.3); White Blood Count 9.3 10^3/uL (4.0-10.0)
[2022-08-15 04:31] LABS: Alanine Aminotransferase 14 U/L (0-33); Albumin Level 2.3 g/dL (3.5-5.2); Alkaline Phosphatase 125 U/L (35-105); Aspartate Amino Transferase 29 U/L (0-32); Blood Urea Nitrogen 9 mg/dL (8-23); Calcium 8.1 mg/dL (8.5-10.5); Carbon Dioxide 23 mmol/L (22-29); Chloride 113 mmol/L (98-107); Globulin 1.9 g/dL (1.3-4.6); Glucose 125 mg/dL (65-115); Osmolality Calculated 302 mOsm/kg (285-295); Sodium 146 mmol/L (136-145); Total Bilirubin 0.9 mg/dL (0.15-1.2); Total Protein 4.2 g/dL (6.6-8.7)
[2022-08-15 04:32] LABS: Anion Gap 13.2 (5-19); Potassium 3.2 mmol/L (3.5-5.1)
[2022-08-15] MEDS: pantoprazole 40 mg SDV IVP ×2 (05:03→18:22)
[2022-08-15] MEDS: hydrocortisone 100 mg/2 mL SDV 25 MG IVP ×2 (05:03→18:22)
[2022-08-15] MEDS: dextrose 5% 1,000 ML 75 ML IV (05:38)
[2022-08-15] MEDS: piperacillin-tazobactam 3.375 GM in sodium chloride 0.9% (plus) 50 ML IV ×2 (05:44→22:19)
--- NOTE | 2022-08-15 06:00 | XRR_ITS ---
PROCEDURE INFORMATION: Exam: XR Chest Exam date and time: 08/15/2022 4:27 AM Age: 62 years old Clinical indication: Condition or disease; Lung condition and disease; Prior surgery; Surgery type: Gb. Gastric bypass. Left shoulder. Patient HX: F/u for aspiration pneumonia. On heated hi flow. TECHNIQUE: Imaging protocol: Radiologic exam of the chest. Views: 1 view. COMPARISON: CR XR chest 1V portable [id number] 08/13/2022 7:04 AM FINDINGS: Tubes, catheters and devices: Interval removal of endotracheal and feeding tubes. Lungs: Interstitial and worsening bilateral airspace disease. Pleural spaces: Small pleural effusions. Heart/Mediastinum: No cardiomegaly. Esophageal air. Vasculature: Ectasia of the thoracic aorta. Bones/joints: Osteopenia and degenerative change. XR/XR chest 1V portable [id number] IMPRESSION: 1. Interstitial and worsening bilateral airspace disease. 2. Small pleural effusions.
--- NOTE | 2022-08-15 06:29 | P.NPUCON_ITS ---
Providers/Reason for Consult Consulting Physican/Specialty*: Chidi Law MD. Psychiatry. Reason for Consult*: Altered mental status. Attending Physician: Robin Gaston MD Primary Care Provider: Steve Cuellar MD Psych Consult HPI History of Present Illness Stefany Bassett is a 62 year old female admitted to the emergency department with the following report: Chief Complaint: Altered Mental Status Stated Complaint: AMS Time Seen by Provider: 08/08/22 13:11 History of Present Illness: Ms. Bassett is a 62-year-old lady with significant past medical history of psychiatric disorder and frequent falls who presents to the emergency department due to generalized illness. Onset of symptoms was yesterday and subacute. She endorses multiple episodes of diarrhea as well as headache which is frontal in nature and aching which is not typical for her. Intensity symptoms is moderate. Otherwise denies infectious symptoms. Course has been worsening. She feels more foggy today. No other specific changes in health, exacerbating, or alleviating factors identified. Onset (ago): day(s) Exacerbating factors: exertion Relieving factors: nothing Associated symptoms: Reports diarrhea, headache(s) and other. She is initially admitted to the MedSurg unit after worsening condition was transferred to the ICU for definitive treatment of those issues. Psychiatric consult was requested secondary to strange behavior. Mostly identified as paranoia and her actively identifying staff members as being of great risk to her. Presented today with her and grandson in the room and they report that she is mostly back to baseline except for the paranoia that she continues to endorse. Patient endorsed a long history of psychiatric illness identified as major depression, PTSD, and borderline personality disorder and her most recent note with Dr. Bennett who she identifies as being her psychiatrist for many many years. Identifies current paranoia and feeling like some of the nurses and staff in the ICU or actually dangerous and possibly against her. She reports that this feeling is decreasing but has been quite prominent. reports that is not common symptom in her condition. We will contact her psychiatrist and also continue to monitor her functioning to see where things stand. Meds Home Medications and Allergies Home Medications Medication Instructions Recorded Confirmed Last Taken Type atorvastatin 10 mg tablet 10 mg PO DAILY 11/22/20 08/09/22 08/08/22 History cetirizine 10 mg capsule (All Day 10 mg PO DAILY PRN allergy symptoms 11/22/20 08/09/22 08/01/22 History Allergy (cetirizine)) calcium carbonate 600 mg calcium 600 mg PO DAILY 06/13/21 08/09/22 08/08/22 History (1,500 mg) tablet (Calcium) cholecalciferol (vitamin D3) 125 125 mcg PO DAILY 06/13/21 08/09/22 08/08/22 History mcg (5,000 unit) capsule buspirone 30 mg tablet 30 mg PO BID #120 tabs 10/09/21 08/09/22 08/08/22 Rx rizatriptan 10 mg tablet (Maxalt) 10 mg PO Q2H PRN migraine headache 11/30/21 08/09/22 04/25/22 Rx #9 tabs alendronate 70 mg tablet (Fosamax) 70 mg PO Q7D 12/13/21 08/09/22 07/30/22 History gabapentin 800 mg tablet 800 mg PO TID pain 02/08/22 08/09/22 08/08/22 History midodrine 10 mg tablet 10 mg PO TID #90 tabs 02/16/22 08/09/22 08/08/22 07:00 Rx duloxetine 60 mg capsule,delayed 60 mg PO DAILY #30 caps 04/17/22 08/09/22 08/08/22 Rx release (Cymbalta) droxidopa 100 mg capsule (Northera) 100 mg PO TID #90 caps 07/23/22 08/09/22 Unknown Rx furosemide 40 mg tablet (Lasix) 40 mg PO BID 08/01/22 08/09/22 08/01/22 History levothyroxine 125 mcg tablet 125 mcg PO QAM 08/01/22 08/09/22 08/08/22 History mirtazapine 15 mg tablet 15 mg PO BEDTIME 08/01/22 08/09/22 08/07/22 History potassium chloride 20 mEq 40 meq PO BID 08/01/22 08/09/22 08/08/22 History tablet,extended release sucralfate 1 gram tablet 1 g PO BID 08/01/22 08/09/22 08/01/22 History zonisamide 25 mg capsule 50 mg PO BEDTIME 08/31/22 09/08/22 2 Weeks Ago History ~07/25/22 ondansetron 4 mg disintegrating 4 mg PO Q8H PRN nausea and 08/05/22 08/09/22 Unknown Rx tablet vomiting 5 days #14 tabs cyanocobalamin (vitamin B-12) 1,000 mcg PO DAILY 08/08/22 08/09/22 Unknown History 1,000 mcg tablet (Vitamin B-12) hydrocodone 7.5 mg-acetaminophen 1 tab PO Q6H PRN Pain 08/08/22 08/09/22 Unknown History 325 mg tablet pantoprazole 40 mg tablet,delayed 40 mg PO QAM 30 days #30 tabs 08/13/22 Un known Rx release (Protonix) Allergies Allergy/AdvReac Type Severity Reaction Status Date / Time lithium Allergy Intermediate NAUSEA AND Verified 08/09/22 13:33 VOMITING lactose Allergy ADR-Gastrointestinal Verified 08/09/22 13:33 Upset adhesive tape AdvReac Intermediate ALGY-Rash Verified 08/09/22 13:33 Current Medications Current Medications Generic Name Dose Route Start Last Admin Trade Name Freq PRN Reason Stop Dose Admin Acetaminophen 325 mg 08/11/22 09:54 08/13/22 18:15 Acetaminophen 325 Mg/10.15 Ml Udc PO 325 mg Q4H PRN Administration MILD PAIN OR INCREASE TEMP Hydrocodone Bitart/Acetaminophen 1 tab 08/08/22 21:55 08/11/22 18:06 Hydrocodone-Acetaminophen 7.5-325 Mg Tablet PO 1 tab Q6H PRN Administration MODERATE TO SEVERE PAIN Albuterol/Ipratropium 3 ml 08/10/22 20:00 08/15/22 01:51 Ipratropium-Albuterol 3 Ml Neb INHALATION 3 ml Q6H.RESP PRINCE Administration Ascorbic Acid 1,000 mg 08/11/22 18:00 08/14/22 17:11 Ascorbic Acid 500 Mg Tablet PO Not Given BID PRINCE Budesonide 0.5 mg 08/10/22 20:00 08/14/22 20:05 Budesonide 0.5 Mg/2 Ml Neb INHALATION 0.5 mg BID.RESPIRATORY PRINCE Administration Buspirone HCl 30 mg 08/09/22 09:00 08/14/22 17:12 Buspirone 10 Mg Tablet PO Not Given BID PRINCE Chlorhexidine Gluconate 1 applic 08/13/22 02:00 08/14/22 08:50 Chlorhexidine Gluconate 4% Btl 118 Ml TOPICAL Not Given DAILY PRINCE Duloxetine HCl 60 mg 08/09/22 09:00 08/14/22 08:51 Duloxetine 60 Mg Capsule PO 60 mg DAILY PRINCE Administration Enoxaparin Sodium 40 mg 08/08/22 22:00 08/11/22 00:42 Enoxaparin 40 Mg/0.4 Ml Syringe SUBCUT 40 mg Q24H PRINCE Administration Fludrocortisone Acetate 0.1 mg 08/11/22 18:23 08/14/22 08:48 Fludrocortisone 0.1 Mg Tablet PO 0.1 mg DAILY PRINCE Administration Gabapentin 400 mg 08/11/22 21:00 08/14/22 20:35 Gabapentin 400 Mg Capsule PO Not Given TID PRINCE Hydrocortisone Sodium Succinate 25 mg 08/13/22 18:00 08/15/22 05:03 Hydrocortisone 100 Mg/2 Ml Sdv IVP 25 mg Q12H PRINCE Administration Piperacillin Sod/Tazobactam 50 mls @ 12.5 mls/hr 08/08/22 22:30 08/15/22 05:44 Sod 3.375 gm/ Sodium Chloride IV 12.5 mls/hr Q8H PRINCE Administration Protocol dexmedeTOMIDine 0.9 % NaCL 400 mcg in 100 mls @ 0 mls/hr 08/14/22 10:15 08/14/22 21:08 Precedex IV 0.3 mcg/kg/hr .Q0M PRINCE 4.79 mls/hr Titration Protocol Per Protocol Thiamine HCl 500 mg/ Sodium 105 mls @ 210 mls/hr 08/14/22 10:30 08/14/22 12:16 Chloride IV 08/16/22 10:59 Infused Q24H PRINCE Infusion Dextrose 1,000 mls @ 75 mls/hr 08/14/22 15:30 08/15/22 05:38 D5w IV 75 mls/hr .[id number] PRINCE Administration Fluconazole 100 mg/ N/A 50 mls @ 50 mls/hr 08/14/22 18:00 08/14/22 19:31 IV Infused Q24H PRINCE Infusion Levothyroxine Sodium 125 mcg 08/09/22 06:00 08/15/22 05:41 Levothyroxine 125 Mcg Tablet PO Not Given QAM PRINCE Magnesium Hydroxide 30 ml 08/12/22 09:00 08/14/22 20:35 Magnesium Hydroxide 30 Ml Udc PO Not Given BEDTIME PRINCE Midodrine 10 mg 08/10/22 12:00 08/15/22 05:41 Midodrine 5 Mg Tablet PO Not Given 0600,1200,1800 PRINCE Mirtazapine 15 mg 08/08/22 21:55 08/14/22 20:36 Mirtazapine 15 Mg Tablet PO Not Given BEDTIME PRINCE Nystatin 100,000 unit 08/14/22 17:00 08/14/22 20:36 Nystatin 100,000 Unit/Ml Udc 5 Ml PO Not Given QID PRINCE Ondansetron HCl 4 mg 08/08/22 21:55 08/09/22 21:30 Ondansetron 2 Mg/Ml Sdv 2 Ml IVP 4 mg Q6H PRN Administration vomiting, or N/V if npo Pantoprazole Sodium 40 mg 08/09/22 18:00 08/15/22 05:03 Pantoprazole 40 Mg Sdv IVP 40 mg Q12H PRINCE Administration Potassium Chloride 40 meq 08/11/22 10:00 08/14/22 17:12 Potassium Chloride Oral Liq 20 Meq/15 Ml Udc PO Not Given BID PRINCE Sucralfate 1 gm 08/11/22 18:00 08/15/22 05:42 Sucralfate 1 Gm/10 Ml Oral Liq Udc PO Not Given Q6H PRINCE Zinc Gluconate 50 mg 08/11/22 10:05 08/14/22 08:48 Zinc Gluconate 50 Mg Tablet PO 50 mg DAILY PRINCE Administration Zonisamide 50 mg 08/10/22 09:30 08/14/22 08:49 Zonisamide 100 Mg Capsule PO 50 mg DAILY PRINCE Administration PFSH NPU PFSH: Medical History Borderline personality disorder Chronic lumbar radiculopathy Chronic migraine without aura, intractable, with status migrainosus DDD (degenerative disc disease), lumbar Dysphagia Encounter for long-term (current) use of NSAIDs Generalized anxiety disorder Grade I diastolic dysfunction History of stress test 12/2021 Hyperlipidemia Hypoalbuminemia Hypothyroidism Macrocytic anemia Major depression, recurrent, full remission Marginal ulcer Minor neurocognitive disorder Orthostatic hypotension Osteoporosis Post-traumatic stress disorder, chronic Pouchitis 04/26/2022 Psychiatric care Surgical History History of 2 sections History of carpal tunnel surgery of left wrist History of esophagogastroduodenoscopy (EGD) 07/27/2022 04/26/2022 Hx of appendectomy Hx of bilateral salpingectomy Hx of cholecystectomy Hx of colectomy bowel obstruction 11/2012 Hx of gastric bypass Hx of hernia repair Hx of hysterectomy Hx of knee surgery Right Hx of shoulder surgery Left Hx of tubal ligation Family History Other CAD (coronary artery disease) Cancer Diabetes Hyperlipidemia Hypertension Stroke Social History Smoking and tobacco status: never smoked Alcohol intake: never Adopted: No Lives independently: Yes Household members: spouse and other Details: Grandson Housing: House Marital status: Marital status details: 27 years Number of children: 2 Number of grandchildren: 1 Highest education level completed: Associate Degree: Occupational, Technical, Vocational Program Education level details: Business service: No Current occupational status: disabled Current occupational exposures/hazards: No Pets and animals: Yes Pets & animals: cat(s), dog(s) and farm animals Farm Animals: other Leisure activites: other Leisure activities details: watch TV Sexually active: Yes Current gender identity: Female Alexandra/Catholic: Rastafarian Special alexandra needs: No Agree to transfusion: Yes Financial difficulty paying for basics: Very Hard Mental Status Exam MSE Comments: This is a well-nourished well-developed white female in hospital gown with limited grooming and adequate eye contact. No abnormal movements of her psychomotor retardation. Cooperative with exam in mild distress. Speech was decreased rate and volume. Mood described as okay affect appropriate organized. Thoughts: Patient denied suicidal or homicidal ideation, she endorsed paranoia but no delusions were noted. She denied auditory or visual hallucinations. Attention and concentration were intact and memory appeared reliable but none were formally tested. She alert and oriented x3. Insight appears fair, judgment is fair and impulse control fair. Vitals/I&O/Wt Last Vital Signs Temp 99.0 F 08/14/22 20:00 Pulse 75 08/15/22 06:00 Resp 22 H 08/15/22 06:00 BP 91/65 08/15/22 06:00 Pulse Ox 91 08/15/22 06:00 O2 Del Method 08/15/22 01:51 O2 Flow Rate 50 08/15/22 03:25 FiO2 90 08/15/22 03:25 08/14/22 08/14/22 08/15/22 14:59 22:59 06:59 Intake Total 246.243 / 246.243 124.193 / 858.229 6430 / 1420.436 Output Total 1450 / 1450 400 / 1850 Balance 246.243 / 246.243 -1325.807 / -1079.564 650 / -429.564 Physical Exam Urinary Catheter Management: Dodd: Cath Placed During This Visit: yes Reason for Continuing Indwelling Catheter: Accurate Measurement of Urinary Output in Critically Ill Patients Urinary Catheter Date of Insertion: 08/11/22 Urinary Catheter Time of Insertion: 00:20 Data NPU : 08/16/22 02:19 08/16/22 02:19 Micro: Microbiology 08/14/22 09:45 Gram Stain - Final Sputum - Endotracheal Tube Aspirate Microbiology 08/14/22 09:45 Sputum - Endotracheal Tube Aspirate Gram Stain - Final A&P Assessment and plan (1) UTI due to Klebsiella species: Status: Acute (2) ARDS (adult respiratory distress syndrome): Status: Acute (3) Gastric bezoar: Status: Acute (4) Hx of gastric bypass: Status: Acute (5) Aspiration pneumonia: Status: Acute (6) Major depression, recurrent, full remission: Status: Chronic (7) Post-traumatic stress disorder, chronic: Status: Chronic (8) Generalized anxiety disorder: Status: Chronic (9) Borderline personality disorder: Status: Chronic Plan This is a 62-year-old white female with a long history of mental health concerns and current treatment at [facility] who presents with multiple medical issues including possible recent stroke and aspiration pneumonia who presents with new onset paranoia. 1. Continue current medication. We will consider making changes as we monitor for improvement. 2. New onset paranoia but patient is aware of her errant thinking. We will monitor for need for introduction of medication to assist in resolution. 3. We will continue to follow. Attestations NPU Medical Necessity Statement*: N/A. Please primary team note for medical necessity. No current need for inpatient psychiatric care noted. Coding Level of Care Code Acute Vehicle Maintenance Technician for Chg Fwd Diagnoses UTI due to Klebsiella species N39.0; B96.89 ARDS (adult respiratory distress syndrome) J80 Gastric bezoar T18.2XXA Hx of gastric bypass Z98.84 Aspiration pneumonia J69.0 Major depression, recurrent, full remission F33.42 Post-traumatic stress disorder, chronic F43.12 Generalized anxiety disorder F41.1 Borderline personality disorder F60.3
[2022-08-15] MEDS: budesonide 0.5 mg/2 mL Neb INHALATION ×2 (08:52→19:55)
--- NOTE | 2022-08-15 10:25 | PC.CHAP ---
Pastoral Care Encounter/Spiritual Assessment Type of Contact [] Declined catalogue maker visit [] Patient/Family/Request visit [] Outpatient visit [] Follow-up visit [] Physician referral [] Code/Alert [x] Routine visit [] Staff referral [] Actively dying [x] Patient sleeping [] Family support [] [] Out of room [] Palliative care [] [] Receiving care in room [] Pre-surgical visit [] Trauma [] Long length of stay [x] ICU visit [] Other: Relational/Emotional Strength [] Patient feels connected with others/family/visitors/staff [] Distress [] Loneliness/isolation [] Abandonment Spirituality of Patient [] Person of Alexandra [] Attends Religious of their Alexandra [] Believes in Prayer [] Reads Bible or Samaritan materials [] There are Spiritual issues to be addressed Parking Meter Servicer Interventions [x] Prayer [] Active listening [] Non-anxious presence [] Spiritual/emotional support [] Crisis/trauma care [] Spiritual counseling [] Bereavement support [] Provided bereavement packet [] Provided Bible/devotional materials [] Provided toy/stuffed animal, coloring book to patient or family member [] Provided Communion [] Anointing/Republic [] Salvation [x] Completed spiritual assessment [] Other: Impact on Illness or Injury [] Angry [] Fearful [] Anxious [] Often cries [] Exhaustion [] Unable to work [] Unable to attend protestant [] Unable to walk/stand [] Unable to read [] Unable to drive [] Unable to eat/drink [] Unable to sleep [] Unable to be with family [] Patient intubated [] Other: Summary Time spent with patient
--- NOTE | 2022-08-15 11:28 | XR_ITS ---
WS: [id number] XR chest 1V portable [id number] REASON FOR EXAM: hypoxia FINDINGS: Compared to the examination of 08/15/2022, there has been some resolution of the diffuse interstitial lung opacities in both lungs, most notable in the right lower lung. Considerable abnormality remains. No other interval change or new finding. XR/XR chest 1V portable [id number] IMPRESSION: Improving abnormal chest as above.
[2022-08-15] MEDS: FUROsemide 10 mg/mL SDV 4mL 40 MG IVP (12:11)
[2022-08-15] MEDS: thiamine 500 MG in sodium chloride 0.9% (100 ml) 100 ML 200 MG IV (12:18)
--- NOTE | 2022-08-15 12:38 | P.PN_ITS ---
Subjective Subjective: Seen this morning. Patient is currently on heated high flow 55 L, 90% FiO2. Respiratory rate somewhere between 25-28. Patient does appear anxious and is currently on Precedex drip. At times her respiratory rate does come down to low 20s when she tries to stay calm. present at bedside. She knows is here 2021 and she states she is at the [facility]. She told a few of the nurses that we are trying to kill her. Patient does desaturate down to 88% at times. Otherwise she states around 89 to 90% when a little more calm. Denies chest pain, abdominal pain, nausea, vomiting, diarrhea at this time. Patient is strictly n.p.o. Patient was given a cup of water by her yes terday after which she aspirated again. She is again asking to drink water. Patient does state that if she needs to go back on a ventilator she will do so. She would like to be resuscitated if needed. Patient has been 12 L fluid positive since admission. Sodium 146 today. Currently on D5 normal saline 75 cc/h. Earlier today patient was seen by psych as well. Yesterday patient pulled out her NG tube and has required higher amount of oxygen supplementation thereafter as well. Vitals/I&O/Wt Last Vital Signs Temp 99.0 F 08/14/22 20:00 Pulse 75 08/15/22 10:00 Resp 18 08/15/22 10:00 BP 91/65 08/15/22 10:00 Pulse Ox 91 08/15/22 10:00 O2 Del Method 08/15/22 07:00 O2 Flow Rate 50 08/15/22 08:58 FiO2 90 08/15/22 10:00 08/14/22 08/15/22 08/15/22 22:59 06:59 14:59 Intake Total 124.193 / 502.457 5938 / 1420.436 55 / 55 Output Total 1450 / 1450 400 / 1850 Balance -1325.807 / -1079.564 650 / -429.564 55 / 55 Physical Exam Narrative: Constitutional: AAOx3, anxious, chronically ill-appearing, 55 L, 90% FiO2. HEENT: Bitemporal wasting, extraocular movements intact, moist mucous membranes Neck: Supple Respiratory: Bibasilar crackles, no wheezes, no accessory muscle use Cardiovascular: Regular rate and rhythm, no gallops or rubs Abdomen: Soft, nontender, doughy texture, positive bowel sounds Extremities: Trace edema bilaterally in lower extremities, muscle wasting noted Skin: Scattered sores and bruises in different stages of healing with iatrogenic changes noted to the upper extremities in particular from blood draws Neuro: Speech clear, face symmetric, moves all extremities, no involuntary movements noted Psych: Flat affect Urinary Catheter Management: Dodd: Cath Placed During This Visit: yes Reason for Continuing Indwelling Catheter: Accurate Measurement of Urinary Output in Critically Ill Patients Urinary Catheter Date of Insertion: 08/11/22 Urinary Catheter Time of Insertion: 00:20 Data : 08/15/22 03:31 08/15/22 03:31 Micro: Microbiology 08/14/22 09:45 Gram Stain - Final Sputum - Endotracheal Tube Aspirate A&P Assessment and plan (1) Gastric bezoar: Status: Acute (2) Hx of gastric bypass: Status: Acute (3) Severe protein-energy malnutrition: Status: Acute (4) Aspiration pneumonia: Status: Acute (5) Hypernatremia: Status: Acute (6) Respiratory failure with hypoxia: Status: Acute (7) Orthostatic hypotension: Status: Chronic (8) Major depression, recurrent, full remission: Status: Chronic (9) Nausea and vomiting: Status: Acute (10) Post-traumatic stress disorder, chronic: Status: Chronic (11) Generalized anxiety disorder: Status: Chronic (12) Borderline personality disorder: Status: Chronic (13) Minor neurocognitive disorder: Status: Chronic (14) Encounter for long-term opiate analgesic use: Status: Chronic (15) Chronic lumbar radiculopathy: Status: Chronic (16) Status post gastric bypass for obesity: Status: Chronic (17) Frequent falls: Status: Acute (18) Hypoalbuminemia: Status: Chronic (19) Pneumonia: Status: Acute Qualifiers: Pneumonia type: aspiration pneumonia (20) Chronic migraine: Status: Chronic (21) Hypothyroidism: Status: Chronic Qualifiers: Hypothyroidism type: acquired Qualified Code(s): E03.9 - Hypothyroidism, unspecified (22) Grade I diastolic dysfunction: Status: Chronic (23) Esophageal hiatal hernia: Status: Chronic (24) Macrocytic anemia: Status: Chronic (25) DDD (degenerative disc disease), lumbar: Status: Chronic Plan #Acute respiratory failure with hypoxia #Vent dependent respiratory failure -resolved #Aspiration pneumonitis versus pneumonia #Nausea, vomiting #Pseudo gastric outlet obstruction #Hypernatremia #Status post gastric bypass surgery for obesity #Grade 1 diastolic dysfunction with generalized anasarca #Severe protein calorie malnutrition #Orthostatic hypotension #Hypothyroidism #Macrocytic anemia chronic #Chronic esophageal hiatal hernia #Gastric bezoar -Continue to wean down oxygen. Currently requiring 55 L heated high flow 90% FiO2. Had a discussion with patient and that patient may need to be reintubated if she does not improve. Anxiety is playing a role as well. She is currently on Precedex drip. ? We will stop IV fluids for time being. Patient has 12 L positive since admission. Will order Lasix 40 IV x1 and assess response. May have to give more doses. We will add Levophed for blood pressure support if needed. MAP is greater than 65 at this time. ? Continue midodrine, fludrocortisone, ? Patient has pulled her NG tube. Cannot do free water flushes anymore. Will discuss with GI/general surgery regarding her further plan. ? Patient does have generalized deconditioning and is at risk for aspiration. ? Patient is at risk for refeeding syndrome. ? PICC line and TPN to start today. We may have to do this temporarily. ?Severe protein calorie malnutrition: Albumin low. We will need to start some form of feeds after speaking to surgery/GI. -We will consult pulmonology. -We will repeat chest x-ray today ? We will replete potassium -Sputum culture pending, COVID PCR pending ? Continue Zosyn. Patient spiking fevers however has been afebrile in last 48 hours. ? Continue fluconazole ? Continue nebulization steroids Pulmicort -Psych consulted for patient's paranoia. Consult note pending. DVT prophylaxis: Continue to monitor platelets. Hold off on Lovenox for now. Start SCDs. Prognosis is poor Care discussed with RN, metal buggy operator and patient's spouse in detail at bedside. Attestations Medical Necessity Statement*: Critically ill in ICU. Critical Care Time: 40 min Coding Level of Care Code Acute E M Assembler for Chg Fwd Diagnoses Gastric bezoar T18.2XXA Hx of gastric bypass Z98.84 Severe protein-energy malnutrition E43 Aspiration pneumonia J69.0 Hypernatremia E87.0 Respiratory failure with hypoxia J96.91 Orthostatic hypotension I95.1 Major depression, recurrent, full remission F33.42 Nausea and vomiting R11.2 Post-traumatic stress disorder, chronic F43.12 Generalized anxiety disorder F41.1 Borderline personality disorder F60.3 Minor neurocognitive disorder G31.84 Encounter for long-term opiate analgesic use Z79.891 Chronic lumbar radiculopathy M54.16 Status post gastric bypass for obesity Z98.84 Frequent falls R29.6 Hypoalbuminemia E88.09 Pneumonia J18.9 Pneumonia type: aspiration pneumonia Chronic migraine Hypothyroidism E03.9 Hypothyroidism type: acquired Grade I diastolic dysfunction I51.89 Esophageal hiatal hernia K44.9 Macrocytic anemia D53.9 DDD (degenerative disc disease), lumbar M51.36
[2022-08-15 13:57] LABS: ABG PCO2 44.6 mmHg (35-45); ABG PH Result 7.38 (7.35-7.45); Arterial Blood Gas Hematocrit 37.1 % (37-47); Base Excess ABG 1.1 mmol/L (-2.0-2.0); Blood Gas Sample Site Brachial, right; Blood Gas Sample Type Arterial; HCO3 ABG 26.5 mmol/L (22-26)
--- NOTE | 2022-08-15 14:10 | XR_ITS ---
WS: [id number] CHEST XRAY TECHNIQUE: Portable chest. CLINICAL INFORMATION: Post PICC insertion COMPARISON: August 15, 2022 11:37 AM FINDINGS: Patient is rotated. Shallow inspiration. RIGHT PICC line with tip in the RIGHT atrium. This could be retracted 2-3 cm for optimal SVC position. Heart: Cardiomegaly. Large esophageal hiatal hernia with partial intrathoracic stomach. Surgical clip s at the GE junction. Lungs: Elevation hemidiaphragm with volume loss. Diffuse pulmonary edema with patchy bilateral infilt rates progressed compared to earlier today. Small bilateral pleural effusions. Bones: Normal visualized bony structures. Cholecystectomy clips. XR/XR chest 1V portable [id number] IMPRESSION: 1. RIGHT PICC line with tip in the RIGHT atrium. This could be retracted 2-3 c m for optimal SVC position. 2. Progressed pulmonary edema/infiltrates
--- NOTE | 2022-08-15 14:34 | PC.NUTR ---
Nutrition consult for malnutrition received. If TPN medically appropriate, recommend TPN to start at 12 mls/hr and increase 10 mls/hr Q8H til goal rate of 42 mls/hr is reached, along with 25 grams/125 mls fat emulsion, 10 mls/day multivitamins, and standard electrolytes. (With D5W@75 mls/hr, Patient will receive additional 306 kcals). Details in RD assessment.
[2022-08-15 14:50] LABS: Oxygen Device HHFNC
--- NOTE | 2022-08-15 15:53 | XR_ITS ---
WS: [id number] CHEST XRAY TECHNIQUE: Portable chest. CLINICAL INFORMATION: Post-intubation COMPARISON: August 15, 2022 3:14 PM FINDINGS: Endotracheal tube with tip above the prashant measuring 1.1 cm RIGHT PICC line in good position in the distal SVC. Improved lung aeration post intubation compared t o earlier today. Heart: Cardiomegaly. Large esophageal hiatal hernia. Lungs: Diffuse bilateral pulmonary edema and infiltrates with improved aeration post intubation. Smal l RIGHT greater than LEFT pleural effusions. Bones: LEFT rotator cuff anchor. Cholecystectomy clips. Surgical clips at the GE junction. XR/XR chest 1V portable [id number] IMPRESSION: 1. Endotracheal tube with tip above the prashant measuring 1.1 cm 2. RIGHT PICC line with tip in the distal SVC in good position. 3. Improved lung aeration postintubation compared to earlier today.
--- NOTE | 2022-08-15 16:11 | PC.NURSE ---
Triple lumen PICC inserted into right basilic vein. CXR shows cath tip in right atrium. Cath pulled out 2 [address] in [address] ICU team getting ready to intubate patient. Repeat CXR to be completed following intubation.
--- NOTE | 2022-08-15 16:44 | PM.CONSULT ---
Providers/Reason For Consult Consulting Physician/Specialty*: Francesco Sharma MD/Pulmonary Critical Care Reason for Consult*: Acute respiratory distress Requesting Physician: Rosalie Jones MD Attending Physician: Rosalie Jones MD Primary Care Provider: Steve Cuellar MD History of Present Illness History of Present Illness Stefany Bassett is a 62 year old female PMHx of gastric bypass [id number], chronic migraines on botox injections , multiple syncopal episodes?, admitted for suspected aspiration pneumonia secondary to vomiting given her large esophageal hiatal hernia.?She has had issues with swallowing for some time with weight loss of 70 pounds or so in the last year.? She had a gastric bypass, Aviva-en-Y procedure, 20 years ago.? She actually underwent upper endoscopy on July [address] Ortiz and at that time it was reported esophagus was examined with no abnormalities.? The gastroesophageal junction was located 35 cm from the incisors.? In the gastric cardia evidence of prior gastric bypass with a 3 cm pouch was noted as were healed marginal ulcers at 12 and 9:00.? Gastrojejunostomy diameter was noted to be 20 mm.? No evidence of gastric fistula, strictures or pouchitis.? Recommendations were for frequent small meals head of bed elevation antireflux medications and diet and avoidance of food and medicines that might increase reflux. Mrs. Bassett also had a CT of the chest abdomen and pelvis revealing small left greater than right pleural effusions with compressive atelectasis at the lung bases along with a few patchy hazy groundglass opacities in both lower lobes and left greater than right upper lobes felt to be likely infectious or inflammatory.? Also notated was no focal pneumonia.? A large esophageal hiatal hernia was again noted with fluid distended thoracic esophagus containing air-fluid level.? During this hospitalization patient developed respiratory failure with hypoxia secondary to aspiration pneumonitis, treated with Zosyn-intubated on 08/10/2022-upper GI series on 08/10/2022 showed food contents in proximal stomach caught in a hiatal hernia causing potential partial outlet obstruction, possibly leading to aspiration as well as intubation. On 08/11/2022 patient underwent EGD by surgeon on-call and food particles were pushed through the junction, reported there was no focal obstruction and noticed 1 exposed staple. She was extubated yesterday-overnight her oxygen requirements were increasing and currently she is on 55 L and 90% saturating 80 to 83%-appears to be respiratory distress Pulmonary critical care consult requested for worsening respiratory failure As inpatient at bedside-appears to be in respiratory distress; overall she is 12 L positive since admission We have given Lasix 40 Mg and patient made about 2 L but her respiratory distress did not improve Discussed with patient and her about potential reintubation and explained about fluid overload/ARDS secondary to aspiration pneumonia being contributing factors to her respiratory failure-explained that she may need aggressive IV diuresis as well as continuation of antibiotics until her pneumonia improves-and then will be able to evaluate whether she can be extubated-in any case of failure-explained that she may need a trach and long-term acute care facility placement- and understands the potential outcomes and agreed for intubation -Accordingly patient was intubated, sedated and connected to mechanical ventilator -Other labs and pertinent imaging has been reviewed Review of Systems General: Reports: 10 or more systems reviewed and unremarkable except in HPI and below Medications/Allergies Home Medications Medication Instructions Recorded Confirmed Last Taken Type atorvastatin 10 mg tablet 10 mg PO DAILY 11/22/20 08/09/22 08/08/22 History cetirizine 10 mg capsule (All Day 10 mg PO DAILY PRN allergy symptoms 11/22/20 08/09/22 08/01/22 History Allergy (cetirizine)) calcium carbonate 600 mg calcium 600 mg PO DAILY 06/13/21 08/09/22 08/08/22 History (1,500 mg) tablet (Calcium) cholecalciferol (vitamin D3) 125 125 mcg PO DAILY 06/13/21 08/09/22 08/08/22 History mcg (5,000 unit) capsule buspirone 30 mg tablet 30 mg PO BID #120 tabs 10/09/21 08/09/22 08/08/22 Rx rizatriptan 10 mg tablet (Maxalt) 10 mg PO Q2H PRN migraine headache 11/30/21 08/09/22 04/25/22 Rx #9 tabs alendronate 70 mg tablet (Fosamax) 70 mg PO Q7D 12/13/21 08/09/22 07/30/22 History gabapentin 800 mg tablet 800 mg PO TID pain 02/08/22 08/09/22 08/08/22 History midodrine 10 mg tablet 10 mg PO TID #90 tabs 02/16/22 08/09/22 08/08/22 07:00 Rx duloxetine 60 mg capsule,delayed 60 mg PO DAILY #30 caps 04/17/22 08/09/22 08/08/22 Rx release (Cymbalta) droxidopa 100 mg capsule (Northera) 100 mg PO TID #90 caps 07/23/22 08/09/22 Unknown Rx furosemide 40 mg tablet (Lasix) 40 mg PO BID 08/01/22 08/09/22 08/01/22 History levothyroxine 125 mcg tablet 125 mcg PO QAM 08/01/22 08/09/22 08/08/22 History mirtazapine 15 mg tablet 15 mg PO BEDTIME 08/01/22 08/09/22 08/07/22 History potassium chloride 20 mEq 40 meq PO BID 08/01/22 08/09/22 08/08/22 History tablet,extended release sucralfate 1 gram tablet 1 g PO BID 08/01/22 08/09/22 08/01/22 History zonisamide 25 mg capsule 50 mg PO BEDTIME 08/01/22 08/09/22 2 Weeks Ago History ~07/25/22 ondansetron 4 mg disintegrating 4 mg PO Q8H PRN nausea and 08/05/22 08/09/22 Unknown Rx tablet vomiting 5 days #14 tabs cyanocobalamin (vitamin B-12) 1,000 mcg PO DAILY 08/08/22 08/09/22 Unknown History 1,000 mcg tablet (Vitamin B-12) hydrocodone 7.5 mg-acetaminophen 1 tab PO Q6H PRN Pain 08/08/22 08/09/22 Unknown History 325 mg tablet pantoprazole 40 mg tablet,delayed 40 mg PO QAM 30 days #30 tabs 08/13/22 Unknown Rx release (Protonix) Allergies Allergy/AdvReac Type Severity Reaction Status Date / Time lithium Allergy Intermediate NAUSEA AND Verified 08/09/22 13:33 VOMITING lactose Allergy ADR-Gastrointestinal Verified 08/09/22 13:33 Upset adhesive tape AdvReac Intermediate ALGY-Rash Verified 08/09/22 13:33 Current Medications Generic Name Dose Route Start Last Admin Trade Name Freq PRN Reason Stop Dose Admin Acetaminophen 325 mg 08/11/22 09:54 08/13/22 18:15 Acetaminophen 325 Mg/10.15 Ml Udc PO 325 mg Q4H PRN Administration MILD PAIN OR INCREASE TEMP Hydrocodone Bitart/Acetaminophen 1 tab 08/08/22 21:55 08/11/22 18:06 Hydrocodone-Acetaminophen 7.5-325 Mg Tablet PO 1 tab Q6H PRN Administration MODERATE TO SEVERE PAIN Albuterol/Ipratropium 3 ml 08/10/22 20:00 08/15/22 08:51 Ipratropium-Albuterol 3 Ml Neb INHALATION 3 ml Q6H.RESP PRINCE Administration Ascorbic Acid 1,000 mg 08/11/22 18:00 08/15/22 10:06 Ascorbic Acid 500 Mg Tablet PO Not Given BID PRINCE Budesonide 0.5 mg 08/10/22 20:00 08/15/22 08:52 Budesonide 0.5 Mg/2 Ml Neb INHALATION 0.5 mg BID.RESPIRATORY PRINCE Administration Buspirone HCl 30 mg 08/09/22 09:00 08/15/22 10:05 Buspirone 10 Mg Tablet PO Not Given BID PRINCE Chlorhexidine Gluconate 1 applic 08/13/22 02:00 08/15/22 10:05 Chlorhexidine Gluconate 4% Btl 118 Ml TOPICAL Not Given DAILY [facility] Duloxetine HCl 60 mg 08/09/22 09:00 08/15/22 10:04 Duloxetine 60 Mg Capsule PO Not Given DAILY [facility] Enoxaparin Sodium 40 mg 08/08/22 22:00 08/11/22 00:42 Enoxaparin 40 Mg/0.4 Ml Syringe SUBCUT 40 mg Q24H PRINCE Administration Fludrocortisone Acetate 0.1 mg 08/11/22 18:23 08/15/22 10:04 Fludrocortisone 0.1 Mg Tablet PO Not Given DAILY [facility] Gabapentin 400 mg 08/11/22 21:00 08/15/22 10:03 Gabapentin 400 Mg Capsule PO Not Given TID [facility] Hydrocortisone Sodium Succinate 25 mg 08/13/22 18:00 08/15/22 05:03 Hydrocortisone 100 Mg/2 Ml Sdv IVP 25 mg Q12H PRINCE Administration Piperacillin Sod/Tazobactam 50 mls @ 12.5 mls/hr 08/08/22 22:30 08/15/22 05:44 Sod 3.375 gm/ Sodium Chloride IV 12.5 mls/hr Q8H PRINCE Administration Protocol dexmedeTOMIDine 0.9 % NaCL 400 mcg in 100 mls @ 0 mls/hr 08/14/22 10:15 08/14/22 21:08 Precedex IV 0.3 mcg/kg/hr .Q0M PRINCE 4.79 mls/hr Titration Protocol Per Protocol Thiamine HCl 500 mg/ Sodium 105 mls @ 210 mls/hr 08/14/22 10:30 08/15/22 12:18 Chloride IV 08/16/22 10:59 200 mls/hr Q24H PRINCE Administration Dextrose 1,000 mls @ 75 mls/hr 08/14/22 15:30 08/15/22 05:38 D5w IV 75 mls/hr .[id number] PRINCE Administration Fluconazole 100 mg/ N/A 50 mls @ 50 mls/hr 08/14/22 18:00 08/14/22 19:31 IV Infused Q24H PRINCE Infusion Levothyroxine Sodium 125 mcg 08/09/22 06:00 08/15/22 05:41 Levothyroxine 125 Mcg Tablet PO Not Given QAM PRINCE Magnesium Hydroxide 30 ml 08/12/22 09:00 08/14/22 20:35 Magnesium Hydroxide 30 Ml Udc PO Not Given BEDTIME PRIN[facility] Midodrine 10 mg 08/10/22 12:00 08/15/22 05:41 Midodrine 5 Mg Tablet PO Not Given 0600,1200,1800 PRINCE Mirtazapine 15 mg 08/08/22 21:55 08/14/22 20:36 Mirtazapine 15 Mg Tablet PO Not Given BEDTIME PRIN[facility] Nystatin 100,000 unit 08/14/22 17:00 08/15/22 10:03 Nystatin 100,000 Unit/Ml Udc 5 Ml PO Not Given QID PRINCE Ondansetron HCl 4 mg 08/08/22 21:55 08/09/22 21:30 Ondansetron 2 Mg/Ml Sdv 2 Ml IVP 4 mg Q6H PRN Administration vomiting, or N/V if npo Pantoprazole Sodium 40 mg 08/09/22 18:00 08/15/22 05:03 Pantoprazole 40 Mg Sdv IVP 40 mg Q12H PRINCE Administration Potassium Chloride 40 meq 08/11/22 10:00 08/15/22 10:03 Potassium Chloride Oral Liq 20 Meq/15 Ml Udc PO Not Given BID PRINCE Sucralfate 1 gm 08/11/22 18:00 08/15/22 05:42 Sucralfate 1 Gm/10 Ml Oral Liq Udc PO Not Given Q6H PRINCE Zinc Gluconate 50 mg 08/11/22 10:05 08/15/22 10:03 Zinc Gluconate 50 Mg Tablet PO Not Given DAILY PRIN[facility] Zonisamide 50 mg 08/10/22 09:30 08/15/22 10:03 Zonisamide 100 Mg Capsule PO Not Given DAILY PRINCE PFSH Acute PFSH: Medical History Borderline personality disorder Chronic lumbar radiculopathy Chronic migraine without aura, intractable, with status migrainosus DDD (degenerative disc disease), lumbar Dysphagia Encounter for long-term (current) use of NSAIDs Generalized anxiety disorder Grade I diastolic dysfunction History of stress test 12/2021 Hyperlipidemia Hypoalbuminemia Hypothyroidism Macrocytic anemia Major depression, recurrent, full remission Marginal ulcer Minor neurocognitive disorder Orthostatic hypotension Osteoporosis Post-traumatic stress disorder, chronic Pouchitis 04/26/2022 Psychiatric care Surgical History History of 2 sections History of carpal tunnel surgery of left wrist History of esophagogastroduodenoscopy (EGD) 07/27/2022 04/26/2022 Hx of appendectomy Hx of bilateral salpingectomy Hx of cholecystectomy Hx of colectomy bowel obstruction 11/2012 Hx of gastric bypass Hx of hernia repair Hx of hysterectomy Hx of knee surgery Right Hx of shoulder surgery Left Hx of tubal ligation Family History Other CAD (coronary artery disease) Cancer Diabetes Hyperlipidemia Hypertension Stroke Social History Smoking and tobacco status: never smoked Alcohol intake: never Adopted: No Lives independently: Yes Household members: spouse and other Details: Grandson Housing: House Marital status: Marital status details: 27 years Number of children: 2 Number of grandchildren: 1 Highest education level completed: Associate Degree: Occupational, Technical, Vocational Program Education level details: Business service: No Current occupational status: disabled Current occupational exposures/hazards: No Pets and animals: Yes Pets & animals: cat(s), dog(s) and farm animals Farm Animals: other Leisure activites: other Leisure activities details: watch TV Sexually active: Yes Current gender identity: Female Alexandra/Uatsdin: Yazidi Special alexandra needs: No Agree to transfusion: Yes Financial difficulty paying for basics: Very Hard Vitals/I&O/Wt Last Vital Signs Temp 99.0 F 08/14/22 20:00 Pulse 75 08/15/22 14:00 Resp 18 08/15/22 14:00 BP 91/65 08/15/22 14:00 Pulse Ox 91 08/15/22 14:00 O2 Del Method 08/15/22 07:00 O2 Flow Rate 50 08/15/22 08:58 FiO2 90 08/15/22 14:00 08/15/22 08/15/22 08/15/22 06:59 14:59 22:59 Intake Total 1050 / 1420.436 55 / 55 Output Total 400 / 1850 Balance 650 / -429.564 55 / 55 Physical Exam Narrative: PHYSICAL EXAM: General: lying in bed, alert and following commands but appears to be in moderate respiratory distress HEENT:NCAT, PERRLA, EOMI Neck: Supple Lungs: Bilateral diffuse crackles, Heart: s1/s2, RRR Abd: soft, NT, ND, BS + Normoactive Extremities: 1+ pitting pedal edema bilaterally COLLAR BASTER JUMPBASTING: No focal deficits-follows commands prior to intubation. SKIN: Scattered sores and bruises in different stages of healing? LDA: # CVC: Right PICC line 08/15/2022 Urinary Catheter Management: Dodd: Cath Placed During This Visit: yes Reason for Continuing Indwelling Catheter: Accurate Measurement of Urinary Output in Critically Ill Patients Urinary Catheter Date of Insertion: 08/11/22 Urinary Catheter Time of Insertion: 00:20 Data : 08/15/22 03:31 08/15/22 03:31 Other Labs: Radiology Impressions Head CT 08/08/22 13:35 IMPRESSION: 1. No evidence of intracranial hemorrhage or mass effect. 2. Mild small vessel changes. Mild parenchymal volume loss. 3. No acute intracranial findings. Chest/Abdomen/Pelvis CT 08/08/22 14:46 IMPRESSION: 1. Small LEFT greater than RIGHT pleural effusions with compressive atelectasis in the lung bases. 2. A few patchy hazy ground glass infiltrates in both lower lobes and LEFT greater than RIGHT upper lobes likely infectious or inflammatory. No focal pneumonia. 3. Postoperative changes GE junction with moderate to large esophageal hiatal hernia. Fluid distended thoracic esophagus with air-fluid level. Hiatal hernia appears progressed compared to March 30, 2022 some of which may be due to fluid distention. 4. Diffuse fatty infiltration liver. Hepatomegaly. 5. Diffuse body wall anasarca. 6. Small volume pelvic ascites. 7. Air-fluid level in the bladder likely due to recent instrumentation. 8. No evidence of high-grade small or large bowel obstruction. 9. Chronic compression deformities L1 and L4 unchanged since March 30, 2022. 10. Prior gastric bypass, cholecystectomy, hysterectomy. Upper GI Series 08/10/22 13:59 IMPRESSION: 1. Large hiatal hernia and status post gastric bypass. 2. Favor this large hiatal hernia contains food products, bezoar-like material. 3. Liquid contrast did exit this large hernia but there may be a partial outlet obstruction. None of the food products did exit during this examination. KUB X-Ray 08/11/22 12:05 IMPRESSION: 1. Multiple dilated loops of small bowel in the left upper quadrant. There is gas and stool throughout the majority of the colon. This could reflect small-bowel obstruction or ileus. 2. Bibasilar opacities and bilateral pleural effusions, left greater than right. ADDENDUM: 08/11/22 1414 Findings discussed with MARIA E RAMOS at 08/11/2022 2:12 PM CDT. Chest X-Ray 08/15/22 15:53 IMPRESSION: 1. Endotracheal tube with tip above the prashant measuring 1.1 cm 2. RIGHT PICC line with tip in the distal SVC in good position. 3. Improved lung aeration postintubation compared to earlier today. Laboratory Results WBC 9.3 10^3/uL (4.0-10.0) 08/15/22 03:31 RBC 2.85 10^6/uL (4.1-5.3) L 08/15/22 03:31 Hgb 9.7 g/dL (11.5-15.3) L 08/15/22 03:31 Hct 31.0 % (37.0-47.0) L 08/15/22 03:31 MCV 108.8 fl (81-99) H 08/15/22 03:31 MCH 34.0 pg (28.0-34.0) 08/15/22 03:31 MCHC 31.3 g/dL (30.0-36.0) 08/15/22 03:31 RDW 21.0 % (12.1-15.1) H 08/15/22 03:31 Plt Count 96 10^3/cmm (130-400) L 08/15/22 03:31 MPV 12.6 fL (7.4-10.4) H 08/15/22 03:31 Neut % (Auto) 64.3 % 08/15/22 03:31 Lymph % (Auto) 19.7 % 08/15/22 03:31 [place] % (Auto) 11.4 % 08/15/22 03:31 Eos % (Auto) 0.1 % 08/15/22 03:31 Baso % (Auto) 0.3 % 08/15/22 03:31 Neut # (Auto) 5.97 10^3/uL (1.8-7.7) 08/15/22 03:31 Lymph # (Auto) 1.8 10^3/uL (0.8-4.8) 08/15/22 03:31 [place] # (Auto) 1.1 10^3/uL (0.2-0.9) H 08/15/22 03:31 Eos # (Auto) 0.0 10^3/uL (0.0-0.8) 08/15/22 03:31 Baso # (Auto) 0.0 10^3/uL (0.0-0.1) 08/15/22 03:31 Nucleated RBC % (auto) 0 % 08/15/22 03:31 Nucleated RBCs # 0.0 /100WBC 08/15/22 03:31 D-Dimer 0.75 ug/mIFEU (0-0.59) H 08/10/22 04:16 Specimen Type Arterial 08/15/22 17:20 Sample Site Radial, left 08/15/22 17:20 ABG pH 7.49 (7.35-7.45) H 08/15/22 17:20 ABG pCO2 33.8 mmHg (35-45) L 08/15/22 17:20 ABG pO2 97.7 mmHg (80.0-100.0) 08/15/22 17:20 ABG HCO3 25.8 mmol/L (22-26) 08/15/22 17:20 ABG O2 Saturation 94.6 08/10/22 20:31 ABG Base Excess 2.6 mmol/L (-2.0-2.0) H 08/15/22 17:20 Oliver Test Pos 08/15/22 17:20 A-a O2 Gradient 76.2 mmHg (5-10) H 08/10/22 20:31 Hematocrit 32.8 % (37-47) L 08/15/22 17:20 Hgb O2 Saturation 92.9 % (95-100) L 08/10/22 20:31 Carboxyhemoglobin 0.9 %THgb (0.4-20.1) 08/10/22 20:31 Methemoglobin 1.0 % (0.4-1.5) 08/10/22 20:31 Total Hemoglobin 9.3 g/dL (12-16) L 08/10/22 20:31 Sodium 149.0 mmol/L (131-143) H 08/10/22 20:31 Potassium 3.7 mmol/L (3.5-5.0) 08/10/22 20:31 Glucose 146.0 mg/dL (70-115) H 08/10/22 20:31 Ionized Calcium 1.2 mmol/L (1.1-1.4) 08/10/22 20:31 O2 Delivery Device Vent 08/15/22 17:20 O2 Liters/Min 55.0 % 08/15/22 13:50 FiO2 100.0 % 08/15/22 17:20 Tidal Volume 0.38 08/15/22 17:20 PEEP 8.0 cmH20 08/15/22 17:20 Promotional Model ID Ramseslucina 08/15/22 17:20 Sodium 146 mmol/L (136-145) H 08/15/22 03:31 Potassium 3.2 mmol/L (3.5-5.1) L 08/15/22 03:31 Chloride 113 mmol/L (98-107) H 08/15/22 03:31 Carbon Dioxide 23 mmol/L (22-29) 08/15/22 03:31 Anion Gap 13.2 (5-19) 08/15/22 03:31 BUN 9 mg/dL (8-23) 08/15/22 03:31 Creatinine 0.5 mg/dL (0.5-0.9) 08/15/22 03:31 GFR Calculation 125.0 mL/min (90-130) 08/15/22 03:31 Glucose 125 mg/dL (65-115) H 08/15/22 03:31 POC Glucose 119 mg/dL (70-110) H 08/15/22 20:01 Estimat Average Glucose 59 08/10/22 04:16 Hemoglobin A1c 3.7 % (4.0-6.0) L 08/10/22 04:16 Calculated Osmolality 302 mOsm/kg (285-295) H 08/15/22 03:31 Lactic Acid 2.6 mmol/L (0.5-2.2) H 08/08/22 20:25 Lactate 1.4 mmol/L (0.5-2.2) 08/09/22 05:05 Calcium 8.1 mg/dL (8.5-10.5) L 08/15/22 03:31 Phosphorus 2.3 mg/dL (2.5-4.5) L 08/14/22 03:16 Magnesium 2.0 mg/dL (1.7-2.3) 08/14/22 03:16 Total Bilirubin 0.9 mg/dL (0.15-1.2) 08/15/22 03:31 AST 29 U/L (0-32) 08/15/22 03:31 ALT 14 U/L (0-33) 08/15/22 03:31 Alkaline Phosphatase 125 U/L (35-105) H 08/15/22 03:31 Troponin T Gen 5 ng/L 28 ng/L (0-10) H 08/10/22 04:16 Troponin T Baseline 25 ng/L (0-10) H 08/08/22 13:48 Troponin T 120 Minute 24.05 ng/L (0-10) H 08/08/22 15:33 Delta Troponin T -0.95 ABS# (0-10) L 08/08/22 15:33 Troponin T Hi Sens 6Hr 25.69 ng/L (0-10) H 08/09/22 05:05 Troponin T Hi Sens 6Hr Delta 0.69 ng/L (0-12) 08/09/22 05:05 C-Reactive Protein 9.4 mg/L (0.0-4.9) H 08/08/22 13:48 NT-Pro-B Natriuret Pep 807 pg/mL (0-125) H 08/08/22 13:48 Total Protein 4.2 g/dL (6.6-8.7) L 08/15/22 03:31 Albumin 2.3 g/dL (3.5-5.2) L 08/15/22 03:31 Globulin 1.9 g/dL (1.3-4.6) 08/15/22 03:31 Triglycerides 109 mg/dL (0-150) 08/10/22 04:16 Cholesterol 66 mg/dL (0-200) 08/10/22 04:16 LDL Cholesterol, Calc 34 mg/dL (50-129) L 08/10/22 04:16 Total VLDL Cholesterol 22 mg/dL (0-30) 08/10/22 04:16 HDL Cholesterol 10 mg/dL (60-100) L 08/10/22 04:16 Cholesterol/HDL Ratio 6.60 mg/dL (0.0-4.40) H 08/10/22 04:16 Procalcitonin 2.13 ng/mL (0-0.5) H 08/11/22 03:45 TSH 0.49 uIU/mL (0.27-4.20) 08/08/22 13:48 Random Cortisol 25.42 ug/dL (2.47-19.5) H 08/11/22 03:45 Urine Color Yellow (Yellow) 08/08/22 17:23 Urine Appearance Hazy (CLEAR) A 08/08/22 17:23 Urine pH 6 (5-7) 08/08/22 17:23 Ur Specific [place] 1.000 (1.005-1.030) L 08/08/22 17:23 Urine Protein Neg (Negative) 08/08/22 17:23 Urine Glucose (UA) Norm (Normal) 08/08/22 17:23 Urine Ketones Negative (Negative) 08/08/22 17:23 Urine Blood Neg (Negative) 08/08/22 17:23 Urine Nitrate Negative (Negative) 08/08/22 17:23 Urine Bilirubin Neg (Negative) 08/08/22 17:23 Urine Urobilinogen 1 mg/dL (Negative) H 08/08/22 17:23 Ur Leukocyte Esterase 1+ (Negative) H 08/08/22 17:23 Urine RBC 0-4 /hpf (0-2) H 08/08/22 17:23 Urine WBC 5-10 /hpf (0-5) H 08/08/22 17:23 Ur Squamous Epith Cells 0-4 /hpf (0-5) H 08/08/22 17:23 Amorphous Sediment Not Reportable 08/08/22 17:23 Urine Bacteria 4+ /hpf (NONE) H 08/08/22 17:23 RSV Nasal Swab Not detected (Not Detected) 08/08/22 17:27 RSV Nasal Swab Int Cntl Not detected (Not Detected) 08/08/22 17:27 Adenovirus (PCR) Not detected (Not Detected) 08/08/22 17:27 Coronavirus 229E (PCR) Not detected (NOT DETECT) 08/14/22 09:06 Human Metapneumovir PCR Not detected (Not Detected) 08/08/22 17:27 Influenza A (RT-PCR) Not detected (Not Detected) 08/08/22 17:27 Influenza A (H1) PCR Not detected (Not Detected) 08/08/22 17:27 Influenza A (H3) PCR Not detected (Not Detected) 08/08/22 17:27 Influenza B (RT-PCR) Not detected (Not Detected) 08/08/22 17:27 Parainfluenzae Type 1 Not detected (Not Detected) 08/08/22 17:27 Parainfluenzae Type 2 Not detected (Not Detected) 08/08/22 17:27 Parainfluenzae Type 3 Not detected (Not Detected) 08/08/22 17:27 RSV Ab Comment see note 08/08/22 17:27 Rhinovirus (PCR) Not detected (Not Detected) 08/08/22 17:27 SARS-CoV-2 (PCR) Not detected (NOT DETECT) 08/14/22 09:06 SARS-CoV-2 Ag (Rapid) Negative (Negative) 08/08/22 20:47 Blood Type A Positive 08/12/22 09:10 Rho(D) Type Positive 08/12/22 09:10 Antibody Screen Negative 08/12/22 09:10 Crossmatch See Detail 08/12/22 09:10 Micro: Microbiology 08/14/22 09:45 Gram Stain - Final Sputum - Endotracheal Tube Aspirate Sputum Culture - Preliminary A&P Assessment and plan (1) Respiratory failure with hypoxia: Status: Acute (2) ARDS (adult respiratory distress syndrome): Status: Acute (3) Aspiration pneumonia: Status: Acute (4) Gastric bezoar: Status: Acute (5) Severe protein-energy malnutrition: Status: Acute (6) Hx of gastric bypass: Status: Acute (7) Nausea and vomiting: Status: Acute (8) Hypoalbuminemia: Status: Chronic (9) Esophageal hiatal hernia: Status: Chronic (10) Grade I diastolic dysfunction: Status: Chronic (11) Hypothyroidism: Status: Chronic Qualifiers: Hypothyroidism type: acquired Qualified Code(s): E03.9 - Hypothyroidism, unspecified (12) UTI due to Klebsiella species: Status: Acute Plan #acute hypoxic respiratory failure secondary to ARDS secondary to aspiration pneumonia/fluid overload #Patient has history of grade 1 diastolic dysfunction-currently +12 L since admission #Hypokalemia - 3.2 ; supplemented today morning -Initially intubated due to aspiration on 08/10/2022-extubated on 08/14/2022 -Today again got reintubated for increasing requirements of high flow nasal cannula-currently on CMV 350/16/8/70% -Currently sedated with fentanyl and propofol-we will target RASS -2 -Currently on Zosyn for aspiration pneumonia as well as UTI 08/08/2022 positive for E. coli as well as Klebsiella -Lasix 40 Mg 1 dose given-patient made about 2 L urine-we will monitor urine output and adjust Lasix dose accordingly -Monitor renal function/electrolytes/input output -We will continue to support her respiration using ventilator-once FiO2 requirements come down-we will plan for awakening/breathing trials #History of gastric bypass in 2001 #Patient presented with nausea vomiting-with suspected food impaction and large esophageal hiatal hernia which was pushed through EGD on 08/11/2022 -Patient follows up with the surgeon as outpatient-and underwent an endoscopy July 27, 2022-recommended to take small meals-apparently patient is noncompliant -Patient also had a urine cultures positive for Klebsiella and E. coli UTI at the time of admission-possibly contributing to her nausea vomiting -A PICC line has been placed today and patient to receive TPN for nutrition -It is imperative that if she is noncompliant with her small frequent meals-she is at risk of recurrent aspiration leading to respiratory failure on multiple hospital admissions-so we will obtain general surgery consult for gastrostomy/PEG tube placement-once she is more stable respiratory hilliard and meanwhile we will continue her TPN for nutrition -Patient had an NG tube placed earlier during this hospitalization-however now the NG tube came out-she is at high risk for perforation due to her hiatal hernia and so we are avoiding to place an NG tube for now ICU CHECKLIST: Problem list updated Verbal orders reviewed and signed Analgesia: Fentanyl Glycemic Control: N/A Nutrition: TPN Restraint Renewal (within 24 hrs): yes Ulcer Prophylaxis: PPI Chemical Thromboprophylaxis: Prophylaxis: Lovenox Mechanical Thromboprophylaxis: SCD Need for Central line: PICC line for TPN Need for Dodd catheter: urine output monitoring Critical Care Time (No Overlap): 65 min This patient has a high probability of sudden, clinically significant deterioration, which requires the highest level of physician preparedness to intervene urgently. I managed/supervised life or organ supporting interventions that required frequent physician assessment. I devoted my full attention in the ICU to the direct care of this patient for the period of time indicated above. Time I spent with family or surrogate(s) is included only if the patient was incapable of providing necessary information or participating in decision making. Time devoted to teaching and to any procedures I billed separately is not included. Services Provided: Telemetry review Mechanical Ventilation Hemodynamic interpretation, assessment and management Review and interpretation of CXR Review and interpretation of lab values Review and interpretation of microbiologic data and culture results Review of medications and administration Review and interpretation of Nutrition requirements and management Discussion of management with other consultants and services Clinical update to family members Consult Attestations Medical Necessity Statement: Acute hypoxic respiratory failure secondary to ARDS due to aspiration pneumonia/fluid overload requiring mechanical ventilation and close ICU monitoring Time Spent in Patient Care: Greater than 35 minutes (>than 50% of time spent in counselling and/or direct pt care on unit). Critical Care Time: The high probability of a clinically significant, sudden or life threatening deterioration of the patient's [Pulmonary,Renal, GI,] system(s) required my full and direct attention, intervention and personal management. The critical care time is as shown. This time is in addition to time spent performing any reported procedures but includes the following: [x] Data and vital sign review and interpretation [x] Patient assessment, examination and intervention [x] Documentation [x] Medication orders and management Critical Care Time (min): 65 Coding Level of Care Code New Pt Acute Behavioral Psychologist for Chg Fwd Patient Type New History Comprehensive Exam Comprehensive Medical Decision Making High Complexity Diagnoses Respiratory failure with hypoxia J96.91 ARDS (adult respiratory distress syndrome) J80 Aspiration pneumonia J69.0 Gastric bezoar T18.2XXA Severe protein-energy malnutrition E43 Hx of gastric bypass Z98.84 Nausea and vomiting R11.2 Hypoalbuminemia E88.09 Esophageal hiatal hernia K44.9 Grade I diastolic dysfunction I51.89 Hypothyroidism E03.9 Hypothyroidism type: acquired UTI due to Klebsiella species N39.0; B96.89 Time Spent (min) 65
--- NOTE | 2022-08-15 16:44 | PM.ACPR ---
Procedure/Consent Time out: Time Out Performed: Yes Consent: Consent for Procedure: Consent obtained from patient (VERBAL), Consent obtained from other (indicate) (VERBAL), Emergency procedure, Risks & Benefits reviewed and Agrees to proceed with procedure Procedure Narrative: Endotracheal Intubation Procedure Note Indication for endotracheal intubation: Acute hypoxic respiratory failure secondary to ARDS due to COVID-19 pneumonia Time of the procedure: 1614 Consent: There was not time to obtain written consent. Obtained verbal consent from patient and her . The patient was in immediate danger, and required the procedure emergently. Sedation: Fentanyl 25 mcg , Versed 2 mg, Etomidate 10 mg Paralytic: Rocuronium 50 mg Equipment: Glidoscope blade 3, ET tube size 8.0 cm View: Grade 1 Cricoid Pressure: No Number of attempts: 1 ETT location confirmed by direct visulization, ET fogging, Capnometer, bilateral breath sounds, Chest x ray Francesco Sharma MD, FCCP Pulm/Critical Care Medicine Acute Procedures Epistaxis Control: Time out performed: Yes
[2022-08-15] MEDS: rocuronium 10 mg/mL INJ 5mL IV (16:47)
[2022-08-15] MEDS: midazolam 1 mg/mL INJ 2 mL 2 MG IVP (16:48)
[2022-08-15] MEDS: fentaNYL 50 mcg/mL INJ 2mL 25 MCG IVP (16:49)
[2022-08-15 17:27] LABS: ABG PCO2 33.8 mmHg (35-45); ABG PH Result 7.49 (7.35-7.45); Arterial Blood Gas Hematocrit 32.8 % (37-47); Base Excess ABG 2.6 mmol/L (-2.0-2.0); Blood Gas Allen Test Pos; Blood Gas Sample Site Radial, left; Blood Gas Sample Type Arterial; Blood Gas Tidal Volume 0.38; HCO3 ABG 25.8 mmol/L (22-26); Oxygen Device VENT; PO2 ABG 97.7 mmHg (80.0-100.0)
[2022-08-15] MEDS: propofol 1,000 MG/100 ML INJ 11.5 MG IV (18:23)
--- NOTE | 2022-08-15 18:32 | PC.NURSE ---
Pt intubated Pt intubated by Dr Sharma after speaking with the pt's at bedside. Intubation done in controlled situation using ordered medications pushed through PICC line. 8.0 tube used and 21 at the lip. No OG tube d/t pt's history of gastric bypass. Pt started on propofol and fentanyl for sedation. Levophed started at 4. Pt updated and at bedside.
[2022-08-15 20:05] LABS: Glucose Point of Care 119 mg/dL (70-110)
[2022-08-15] MEDS: fluconazole premix 100 MG in empty flexible container 1 EACH 50 MG IV (21:09)
[2022-08-15 22:11] LABS: Blood Urea Nitrogen 10 mg/dL (8-23); Calcium 8.7 mg/dL (8.5-10.5); Carbon Dioxide 26 mmol/L (22-29); Chloride 108 mmol/L (98-107); Glucose 139 mg/dL (65-115); Magnesium 2.1 mg/dL (1.7-2.3); Osmolality Calculated 301 mOsm/kg (285-295); Sodium 145 mmol/L (136-145)
[2022-08-15 22:18] LABS: Procalcitonin 2.36 ng/mL (0-0.5)
[2022-08-15] MEDS: potassium chloride premix 100 ML 50 MEQ IV (22:45)
[2022-08-15 23:07] LABS: Glucose Point of Care 152 mg/dL (70-110)
[2022-08-15] MEDS: propofol 1,000 MG/100 ML INJ 15.34 MG IV (23:11)
[2022-08-16] VITALS (114 sets, daily range): BP systolic 68–127; BP diastolic 44–84; PULSE 86–123; RESP 14–26; TEMP 37.8–39.5; O2SAT 86–100
[2022-08-16 00:07] LABS: Glucose Point of Care 145 mg/dL (70-110)
[2022-08-16] MEDS: ipratropium-albuterol 3 mL Neb INHALATION ×4 (01:56→19:51)
[2022-08-16] MEDS: acetaminophen 1,000 MG/100 ML PIGGYBACK 400 MG IV (02:17)
[2022-08-16] MEDS: chlorhexidine gluconate 4% Btl 118 mL 1 APPLIC TOPICAL (03:30)
--- NOTE | 2022-08-16 03:37 | PC.NURSE ---
Duplicate order for chlorhexidine Gluconate 4%. One order stopped. 1 Bottle was used and scanned for 0330 bath. pt tolerated well. Replaced dhillon stat lock, replaced opti-foam dressing on arms and bottom.
[2022-08-16 03:55] LABS: Hematocrit 34.5 % (37.0-47.0); Hemoglobin 10.8 g/dL (11.5-15.3); Mean Corpuscular HGB Conc 31.3 g/dL (30.0-36.0); Mean Corpuscular Hemoglobin 34.5 pg (28.0-34.0); Mean Corpuscular Volume 110.2 fl (81-99); Mean Platelet Volume 12.7 fL (7.4-10.4); Platelet Count 131 10^3/cmm (130-400); Positive C 1; Positive M 1; Red Blood Count 3.13 10^6/uL (4.1-5.3); Red Cell Distribution Width 20.1 % (12.1-15.1); White Blood Count 8.2 10^3/uL (4.0-10.0)
[2022-08-16 04:04] LABS: Glucose Point of Care 150 mg/dL (70-110)
[2022-08-16 04:24] LABS: Blood Urea Nitrogen 10 mg/dL (8-23); Calcium 8.4 mg/dL (8.5-10.5); Carbon Dioxide 23 mmol/L (22-29); Chloride 110 mmol/L (98-107); Glucose 136 mg/dL (65-115); Magnesium 2.1 mg/dL (1.7-2.3); Osmolality Calculated 301 mOsm/kg (285-295); Phosphorus 2.4 mg/dL (2.5-4.5); Sodium 145 mmol/L (136-145)
[2022-08-16 04:26] LABS: Anion Gap 15.2 (5-19)
[2022-08-16 04:27] LABS: Potassium 3.2 mmol/L (3.5-5.1)
[2022-08-16] MEDS: propofol 1,000 MG/100 ML INJ 15.34 MG IV (04:56)
[2022-08-16 05:07] LABS: RBC Morph Comp No
[2022-08-16 05:08] LABS: Add RBC Morph No; Eosinophils 0 %; Lymphocytes 22 %; Segmented Neutrophils 63 %; Total Cells Counted 100 (0-100)
[2022-08-16 05:09] LABS: Anisocytosis 2+; Macrocytosis 2+; Platelet Estimate Normal (Normal); Polychromasia 1+
[2022-08-16 05:10] LABS: Toxic Vacuolation 1+
[2022-08-16] MEDS: hydrocortisone 100 mg/2 mL SDV 25 MG IVP ×2 (05:50→17:20)
[2022-08-16 05:56] LABS: ABG PH Result 7.42 (7.35-7.45); Alveolar-Arterial Oxygen Gradi 22.4 mmHg (5-10); Arterial Blood Gas Hematocrit 39.9 % (37-47); Base Excess ABG 1.1 mmol/L (-2.0-2.0); Blood Gas Allen Test Pos; Blood Gas Operator Identificat JB; Blood Gas Sample Site Brachial, right; Blood Gas Sample Type Arterial; Blood Gas Tidal Volume 0.38; Carboxyhemoglobin 0.7 %THgb (0.4-20.1); HCO3 ABG 25.5 mmol/L (22-26); HGB O2 Sat 91.7 % (95-100); Ionized Calcium Level - ABG 1.2 mmol/L (1.1-1.4); Methemoglobin 1.1 % (0.4-1.5); Oxygen Device VENT; Oxygen Saturation ABG 93.4; PO2 ABG 65.4 mmHg (80.0-100.0); Potassium Level - ABG 2.7 mmol/L (3.5-5.0)
[2022-08-16] MEDS: pantoprazole 40 mg SDV IVP ×2 (06:12→17:20)
[2022-08-16] MEDS: piperacillin-tazobactam 3.375 GM in sodium chloride 0.9% (plus) 50 ML IV (06:13)
[2022-08-16] MEDS: budesonide 0.5 mg/2 mL Neb INHALATION ×2 (08:17→19:51)
[2022-08-16 08:23] LABS: Glucose Point of Care 144 mg/dL (70-110)
--- NOTE | 2022-08-16 08:32 | XRR_ITS ---
PROCEDURE INFORMATION: Exam: XR Chest Exam date and time: 08/16/2022 8:38 AM Age: 62 years old Clinical indication: Condition or disease; Lung condition and disease; Pneumonia; Prior surgery; Surgery type: Choley gastric bypass lt shoulder TECHNIQUE: Imaging protocol: Radiologic exam of the chest. Views: 1 view. COMPARISON: CR XR chest 1V portable [id number] 08/15/2022 4:19 PM FINDINGS: Tubes, catheters and devices: Right sided PICC is in satisfactory position, with distal tip at the level of the SVC/RA junction. Endotracheal tube is in satisfactory position. Surgical clips project over the upper abdomen. An implantable loop recording device is seen projecting over the left chest. Lungs: There is redistribution and indistinctness of the pulmonary vasculature, in association with haziness of the lungs and small bilateral pleural effusions, which in the setting of cardiomegaly is consistent with pulmonary edema. Pneumonia should be excluded clinically. No pneumothorax. Pleural spaces: See Lungs finding. Heart/Mediastinum: Stable cardiomediastinal silhouette. Bones/joints: Unremarkable. XR/XR chest 1V portable [id number] IMPRESSION: Persistent pulmonary edema with small bilateral pleural effusions. Pneumonia should be excluded clinically.
[2022-08-16] MEDS: vancomycin 1,000 MG in sodium chloride 0.9% 250 ML 250 MG IV (10:59)
[2022-08-16] MEDS: FUROsemide 10 mg/mL SDV 4mL 40 MG IVP ×2 (11:00→21:56)
[2022-08-16] MEDS: potassium chloride premix 100 ML 50 MEQ IV (11:01)
[2022-08-16] MEDS: thiamine 500 MG in sodium chloride 0.9% (100 ml) 100 ML 200 MG IV (12:08)
--- NOTE | 2022-08-16 12:22 | PC.RESP ---
BRONCH WITH SUCTION DONE WITH BAL SAMPLE SENT TO LAB
[2022-08-16 12:37] LABS: Glucose Point of Care 191 mg/dL (70-110)
--- NOTE | 2022-08-16 13:49 | PM.PN ---
Subjective Subjective: Seen this AM. No acute events overnight. Patient is still on the ventilator intubated and sedated. Urine output 1500 and last 24 hours. FiO2 down to 40%. Patient will be going for bronchoscopy today with pulmonology. Patient had a bowel movement yesterday as well. Had a fever overnight 101.3. Procalcitonin elevated 2.36. Vitals/I&O/Wt Last Vital Signs Temp 103.1 F H 08/16/22 07:00 Pulse 101 H 08/16/22 12:15 Resp 21 H 08/16/22 11:36 BP 102/67 08/16/22 12:15 Pulse Ox 100 08/16/22 12:15 O2 Del Method 08/16/22 08:25 O2 Flow Rate 70 08/16/22 00:00 FiO2 100 08/16/22 11:36 08/15/22 08/16/22 08/16/22 22:59 06:59 14:59 Intake Total 302.987 / 357.987 907.294 / 1265.281 566.052 / 566.052 Output Total 1600 / 1600 750 / 2350 850 / 850 Balance -1297.013 / -1242.013 157.294 / -1084.719 -283.948 / -283.948 Physical Exam Narrative: Constitutional: Intubated sedated, 40% FiO2 HEENT: Bitemporal wasting, extraocular movements intact, moist mucous membranes Respiratory: Bibasilar crackles, no wheezes, no accessory muscle use, Cardiovascular: Regular rate and rhythm, no gallops or rubs, slightly tachycardic Abdomen: Soft, nontender, positive bowel sounds, nondistended Extremities: 1+ edema bilaterally in lower extremities, muscle wasting noted Skin: Scattered sores and bruises in different stages of healing with iatrogenic changes noted to the upper extremities in particular from blood draws Urinary Catheter Management: Dodd: Cath Placed During This Visit: yes Reason for Continuing Indwelling Catheter: Accurate Measurement of Urinary Output in Critically Ill Patients Urinary Catheter Date of Insertion: 08/11/22 Urinary Catheter Time of Insertion: 00:20 Data : 08/16/22 02:19 08/16/22 02:19 Micro: Microbiology 08/14/22 09:45 Gram Stain - Final Sputum - Endotracheal Tube Aspirate Sputum Culture - Final 08/11/22 09:50 Blood Culture - Final Blood NO GROWTH AFTER 5 DAYS 08/11/22 09:39 Blood Culture - Final Blood NO GROWTH AFTER 5 DAYS A&P Assessment and plan (1) Gastric bezoar: Status: Acute (2) Hx of gastric bypass: Status: Acute (3) Severe protein-energy malnutrition: Status: Acute (4) Aspiration pneumonia: Status: Acute (5) Hypernatremia: Status: Acute (6) Respiratory failure with hypoxia: Status: Acute (7) Orthostatic hypotension: Status: Chronic (8) Major depression, recurrent, full remission: Status: Chronic (9) Nausea and vomiting: Status: Acute (10) Post-traumatic stress disorder, chronic: Status: Chronic (11) Generalized anxiety disorder: Status: Chronic (12) Borderline personality disorder: Status: Chronic (13) Minor neurocognitive disorder: Status: Chronic (14) Encounter for long-term opiate analgesic use: Status: Chronic (15) Chronic lumbar radiculopathy: Status: Chronic (16) Status post gastric bypass for obesity: Status: Chronic (17) Frequent falls: Status: Acute (18) Hypoalbuminemia: Status: Chronic (19) Pneumonia: Status: Acute Qualifiers: Pneumonia type: aspiration pneumonia (20) Chronic migraine: Status: Chronic (21) Hypothyroidism: Status: Chronic Qualifiers: Hypothyroidism type: acquired Qualified Code(s): E03.9 - Hypothyroidism, unspecified (22) Grade I diastolic dysfunction: Status: Chronic (23) Esophageal hiatal hernia: Status: Chronic (24) Macrocytic anemia: Status: Chronic (25) DDD (degenerative disc disease), lumbar: Status: Chronic (26) UTI due to Klebsiella species: Status: Acute (27) ARDS (adult respiratory distress syndrome): Status: Acute (28) Fever: Status: Acute Plan #Acute respiratory failure with hypoxia #Vent dependent respiratory failure #Aspiration pneumonia #Nausea, vomiting #Pseudo gastric outlet obstruction #Hypernatremia #Status post gastric bypass surgery for obesity #Grade 1 diastolic dysfunction with generalized anasarca #Severe protein calorie malnutrition #Orthostatic hypotension #Hypothyroidism #Macrocytic anemia chronic #Chronic esophageal hiatal hernia #Gastric bezoar --Initially intubated due to aspiration on 08/10/2022-extubated on 08/14/2022 -Reintubated 08/15/2022 -Continue to diurese patient. Lasix 40 IV twice daily -Continue fentanyl and propofol ? Continue Zosyn. We will add vancomycin. I will repeat blood cultures, urine culture. ? Check MRSA nares ? Initially had UTI on 08/08/2022 for E. coli and Klebsiella. Zosyn will cover ? Precedex stop on 08/15/2022 ? Hold midodrine and fludrocortisone ? NG tube that was initially placed was pulled out somehow on 08/13/2022. ? We will order for fluoroscopic guided NG tube placement with radiology. Had a long discussion with radiologist Dr. Marquez today. There is seem to be a stenosis around GE junction on previous CAT scan. If unable to get NG tube into the stomach he will leave it distally in the esophagus so oral contrast can be administered. At that point we will check a CT scan abdomen pelvis with oral contrast to evaluate for intestinal obstruction to guide further management. Patient is at high risk of perforation due to history of gastric bypass surgery therefore NG tube will be attempted with fluoroscopy guidance. ? Long-term due to repeated risk of aspiration secondary to patient's esophageal hernia and generalized deconditioning and critical care polyneuropathy patient may need to have PEG/gastrostomy tube placement with a potential tracheostomy if they are unable to extubate her. -If patient does have a intestinal obstruction or narrowing/stenosis in GI tract we may need to transfer patient to higher level of care since we will not have bariatric surgeon available here over the weekend. -I have discussed all of the above with patient's who was in agreement. -For now for nutrition continue TPN support ? Continue to wean down oxygen with goal of extubating patient once patient is more euvolemic and oxygen requirements come down -Pulmonology consulted, recommendations appreciated ? We will replete potassium -Sputum culture pending, COVID PCR pending ?We will stop fluconazole after discussion with slurry control operator helper. ? Continue nebulization steroids Pulmicort -Psych consulted for patient's paranoia. Consult note pending. DVT prophylaxis: Continue to monitor platelets. Hold off on Lovenox for now. Continue SCDs. Prognosis is poor Care discussed with RN, environmental emergencies assistant and patient's spouse in detail at bedside. Attestations Medical Necessity Statement*: Critically ill in the ICU. Intubated, sedated Coding Level of Care Code Acute Wholesale Agronomist for Chg Fwd Diagnoses Gastric bezoar T18.2XXA Hx of gastric bypass Z98.84 Severe protein-energy malnutrition E43 Aspiration pneumonia J69.0 Hypernatremia E87.0 Respiratory failure with hypoxia J96.91 Orthostatic hypotension I95.1 Major depression, recurrent, full remission F33.42 Nausea and vomiting R11.2 Post-traumatic stress disorder, chronic F43.12 Generalized anxiety disorder F41.1 Borderline personality disorder F60.3 Minor neurocognitive disorder G31.84 Encounter for long-term opiate analgesic use Z79.891 Chronic lumbar radiculopathy M54.16 Status post gastric bypass for obesity Z98.84 Frequent falls R29.6 Hypoalbuminemia E88.09 Pneumonia J18.9 Pneumonia type: aspiration pneumonia Chronic migraine Hypothyroidism E03.9 Hypothyroidism type: acquired Grade I diastolic dysfunction I51.89 Esophageal hiatal hernia K44.9 Macrocytic anemia D53.9 DDD (degenerative disc disease), lumbar M51.36 UTI due to Klebsiella species N39.0; B96.89 ARDS (adult respiratory distress syndrome) J80 Fever R50.9
--- NOTE | 2022-08-16 15:15 | P.PCN_ITS ---
Procedure/Consent Time out: Time Out Performed: Yes Consent: Consent for Procedure: Consent obtained from other (indicate) (), Risks & Benefits reviewed and Agrees to proceed with procedure Procedure Narrative: Procedure: Flexible bronchoscopy with airway inspection, airway clearance of secretions and obtaining bronchoalveolar lavage sample Pre-Operative Diagnosis: Aspiration Pneumonia Post-Operative Diagnosis: Same Indication: Persistent chest x-ray showing right lung infiltrates, spiking fevers, elevated procalcitonin, and worsening O2 requirements requiring mechanical ventilation in the setting of aspiration Anesthesia: Fentanyl 25 MCG gtt and propofol and MG gtt Pre-procedure Evaluation: Patient was evaluated clinically and ancillary testing reviewed. The risk of having active MTB infection is very low in my clinical judgement. ASA:4 Malampati score: unable to evaluate due to presence of endotracheal tube Consent: Consents were obtained from [facility] and placed in the chart Procedure Details: Time out was performed by the procedure team and nursing staff. Vent support maintained on Fio2 100. The bronchoscope was introduced through the ETT. A bronchoscopic airway exam was performed to evaluate the visible tracheobronchial tree to the segmental level. Summary of Significant Findings: -Bronchoscope passed through ET tube, 6 ml 1% lidocaine 2 ml each instilled into the trachea, both right and left main bronchus. Distal trachea and main prashant visualized which were sharp and normal. Then the scope was passed through the right bronchial tree was assessed to include the right mainstem bronchus, RBI, and RUL/RML/RLL bronchi to the segmental and subsegmental levels. No active bleeding noted. Mucosa appeared slightly inflamed. Clear secretions noted through right lower lobe and middle lobe. Then the scope was left bronchial tree was assessed to include the left mainstem bronchus, ADRIANE, Lingula, and LLL bronchi to the segmental and subsegmental level. No active bleeding noted. Mucosa appeared slightly inflamed. Clear secretions noted which were suctioned right away. BAL obtained from right lower lobe the bronchoscope was then removed and the procedure terminated. Estimated Blood Loss: None Specimens: Bronchoalveolar lavage was taken from right lower lobe and sent for microbiology cultures. Complications:None; patient tolerated the procedure well. Disposition: Patient remains critically ill, intubated and stays in ICU Francesco Sharma MD [facility] Pulmonary critical Care Medicine [facility] Acute Procedures Epistaxis Control: Time out performed: Yes
--- NOTE | 2022-08-16 15:15 | PM.PN ---
Subjective Subjective: - Pt was seen at bedside today - currently sedated with fentanyl 50 mcg/hr, propofol 20 mcg/hr - FIO2 down to 40% - currently receiving TPN - Good urine output - chest x ray looks less congested but still some inflltrates - suspicious for underlying pneumonia - increased Procalcitonin; fever spikes - send BAL for cultures and dced zosyn and started on Vancomycin and imipenam - other labs and imaging reviewed - hypokalemia 3.2 - supplemented Medications: Reviewed: Yes Vitals/I&O/Wt Last Vital Signs Temp 103.1 F H 08/16/22 07:00 Pulse 108 H 08/16/22 14:30 Resp 18 08/16/22 13:54 BP 102/66 08/16/22 14:30 Pulse Ox 99 08/16/22 14:30 O2 Del Method 08/16/22 13:54 O2 Flow Rate 70 08/16/22 00:00 FiO2 40 08/16/22 13:54 08/16/22 08/16/22 08/16/22 06:59 14:59 22:59 Intake Total 907.294 / 1265.281 566.052 / 566.052 Output Total 750 / 2350 850 / 850 Balance 157.294 / -1084.719 -283.948 / -283.948 Physical Exam Narrative: PHYSICAL EXAM: General: lying in bed, sedated and intubated HEENT:NCAT, PERRLA, EOMI Neck: Supple Lungs: Bilateral diffuse crackles, end expiratory wheeze Heart: s1/s2, RRR Abd: soft, NT, ND, BS + Normoactive Extremities: 1+ pitting pedal edema bilaterally; 2+ pitting anasarca over abdominal wall 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 SKIN: Scattered sores and bruises in different stages of healing? LDA: # CVC: Right PICC line 08/15/2022 Urinary Catheter Management: Dodd: Cath Placed During This Visit: yes Reason for Continuing Indwelling Catheter: Accurate Measurement of Urinary Output in Critically Ill Patients Urinary Catheter Date of Insertion: 08/11/22 Urinary Catheter Time of Insertion: 00:20 Data : 08/16/22 02:19 08/16/22 02:19 Other Labs: Radiology Impressions Head CT 08/08/22 13:35 IMPRESSION: 1. No evidence of intracranial hemorrhage or mass effect. 2. Mild small vessel changes. Mild parenchymal volume loss. 3. No acute intracranial findings. Chest/Abdomen/Pelvis CT 08/08/22 14:46 IMPRESSION: 1. Small LEFT greater than RIGHT pleural effusions with compressive atelectasis in the lung bases. 2. A few patchy hazy ground glass infiltrates in both lower lobes and LEFT greater than RIGHT upper lobes likely infectious or inflammatory. No focal pneumonia. 3. Postoperative changes GE junction with moderate to large esophageal hiatal hernia. Fluid distended thoracic esophagus with air-fluid level. Hiatal hernia appears progressed compared to March 30, 2022 some of which may be due to fluid distention. 4. Diffuse fatty infiltration liver. Hepatomegaly. 5. Diffuse body wall anasarca. 6. Small volume pelvic ascites. 7. Air-fluid level in the bladder likely due to recent instrumentation. 8. No evidence of high-grade small or large bowel obstruction. 9. Chronic compression deformities L1 and L4 unchanged since March 30, 2022. 10. Prior gastric bypass, cholecystectomy, hysterectomy. Upper GI Series 08/10/22 13:59 IMPRESSION: 1. Large hiatal hernia and status post gastric bypass. 2. Favor this large hiatal hernia contains food products, bezoar-like material. 3. Liquid contrast did exit this large hernia but there may be a partial outlet obstruction. None of the food products did exit during this examination. KUB X-Ray 08/11/22 12:05 IMPRESSION: 1. Multiple dilated loops of small bowel in the left upper quadrant. There is gas and stool throughout the majority of the colon. This could reflect small-bowel obstruction or ileus. 2. Bibasilar opacities and bilateral pleural effusions, left greater than right. ADDENDUM: 08/11/22 1414 Findings discussed with MARIA E RAMOS at 08/11/2022 2:12 PM CDT. Chest X-Ray 08/16/22 08:32 IMPRESSION: Persistent pulmonary edema with small bilateral pleural effusions. Pneumonia should be excluded clinically. Laboratory Results WBC 8.2 10^3/uL (4.0-10.0) 08/16/22 02:19 RBC 3.13 10^6/uL (4.1-5.3) L 08/16/22 02:19 Hgb 10.8 g/dL (11.5-15.3) L 08/16/22 02:19 Hct 34.5 % (37.0-47.0) L 08/16/22 02:19 MCV 110.2 fl (81-99) H 08/16/22 02:19 MCH 34.5 pg (28.0-34.0) H 08/16/22 02:19 MCHC 31.3 g/dL (30.0-36.0) 08/16/22 02:19 RDW 20.1 % (12.1-15.1) H 08/16/22 02:19 Plt Count 131 10^3/cmm (130-400) D 08/16/22 02:19 MPV 12.7 fL (7.4-10.4) H 08/16/22 02:19 Neut % (Auto) 64.3 % 08/15/22 03:31 Lymph % (Auto) Not Reportable 08/16/22 02:19 [place] % (Auto) Not Reportable 08/16/22 02:19 Eos % (Auto) 0.1 % 08/15/22 03:31 Baso % (Auto) 0.3 % 08/15/22 03:31 Neut # (Auto) 5.97 10^3/uL (1.8-7.7) 08/15/22 03:31 Lymph # (Auto) Not Reportable 08/16/22 02:19 [place] # (Auto) Not Reportable 08/16/22 02:19 Eos # (Auto) 0.0 10^3/uL (0.0-0.8) 08/15/22 03:31 Baso # (Auto) 0.0 10^3/uL (0.0-0.1) 08/15/22 03:31 Nucleated RBC % (auto) 0 % 08/15/22 03:31 Total Counted 100 (0-100) 08/16/22 02:19 Atypical Lymphs % 0.0 % (0-5) 08/16/22 02:19 Segmented Neutrophils 63 % 08/16/22 02:19 Band Neutrophils 3.0 % 08/16/22 02:19 Lymphocytes (Manual) 22 % 08/16/22 02:19 Monocytes (Manual) 11.0 % 08/16/22 02:19 Eosinophils (Manual) 0 % 08/16/22 02:19 Basophils (Manual) 0.0 % 08/16/22 02:19 Metamyelocytes 1.0 % 08/16/22 02:19 Nucleated RBCs # 0.0 /100WBC 08/15/22 03:31 Toxic Vacuolation 1+ H 08/16/22 02:19 Platelet Estimate Normal (Normal) 08/16/22 02:19 Polychromasia 1+ H 08/16/22 02:19 Anisocytosis 2+ H 08/16/22 02:19 Macrocytosis 2+ H 08/16/22 02:19 D-Dimer 0.75 ug/mIFEU (0-0.59) H 08/10/22 04:16 Specimen Type Arterial 08/16/22 05:34 Sample Site Brachial, right 08/16/22 05:34 ABG pH 7.42 (7.35-7.45) 08/16/22 05:34 ABG pCO2 39.0 mmHg (35-45) 08/16/22 05:34 ABG pO2 65.4 mmHg (80.0-100.0) L 08/16/22 05:34 ABG HCO3 25.5 mmol/L (22-26) 08/16/22 05:34 ABG O2 Saturation 93.4 08/16/22 05:34 ABG Base Excess 1.1 mmol/L (-2.0-2.0) 08/16/22 05:34 Oliver Test Pos 08/16/22 05:34 A-a O2 Gradient 22.4 mmHg (5-10) H 08/16/22 05:34 Hematocrit 39.9 % (37-47) 08/16/22 05:34 Hgb O2 Saturation 91.7 % (95-100) L 08/16/22 05:34 Carboxyhemoglobin 0.7 %THgb (0.4-20.1) 08/16/22 05:34 Methemoglobin 1.1 % (0.4-1.5) 08/16/22 05:34 Total Hemoglobin 13.0 g/dL (12-16) 08/16/22 05:34 Sodium 146.0 mmol/L (131-143) H 08/16/22 05:34 Potassium 2.7 mmol/L (3.5-5.0) L 08/16/22 05:34 Glucose 151.0 mg/dL (70-115) H 08/16/22 05:34 Ionized Calcium 1.2 mmol/L (1.1-1.4) 08/16/22 05:34 O2 Delivery Device Vent 08/16/22 05:34 O2 Liters/Min 55.0 % 08/15/22 13:50 FiO2 40.0 % 08/16/22 05:34 Tidal Volume 0.38 08/16/22 05:34 PEEP 8.0 cmH20 08/16/22 05:34 Diagnostic Medical Sonographer ID Kory 08/16/22 05:34 Sodium 145 mmol/L (136-145) 08/16/22 02:19 Potassium 3.2 mmol/L (3.5-5.1) L 08/16/22 02:19 Chloride 110 mmol/L (98-107) H 08/16/22 02:19 Carbon Dioxide 23 mmol/L (22-29) 08/16/22 02:19 Anion Gap 15.2 (5-19) 08/16/22 02:19 BUN 10 mg/dL (8-23) 08/16/22 02:19 Creatinine 0.5 mg/dL (0.5-0.9) 08/16/22 02:19 GFR Calculation 125.0 mL/min (90-130) 08/16/22 02:19 Glucose 136 mg/dL (65-115) H 08/16/22 02:19 POC Glucose 191 mg/dL (70-110) H 08/16/22 12:31 Estimat Average Glucose 59 08/10/22 04:16 Hemoglobin A1c 3.7 % (4.0-6.0) L 08/10/22 04:16 Calculated Osmolality 301 mOsm/kg (285-295) H 08/16/22 02:19 Lactic Acid 2.6 mmol/L (0.5-2.2) H 08/08/22 20:25 Lactate 1.4 mmol/L (0.5-2.2) 08/09/22 05:05 Calcium 8.4 mg/dL (8.5-10.5) L 08/16/22 02:19 Phosphorus 2.4 mg/dL (2.5-4.5) L 08/16/22 02:19 Magnesium 2.1 mg/dL (1.7-2.3) 08/16/22 02:19 Total Bilirubin 0.9 mg/dL (0.15-1.2) 08/15/22 03:31 AST 29 U/L (0-32) 08/15/22 03:31 ALT 14 U/L (0-33) 08/15/22 03:31 Alkaline Phosphatase 125 U/L (35-105) H 08/15/22 03:31 Troponin T Gen 5 ng/L 28 ng/L (0-10) H 08/10/22 04:16 Troponin T Baseline 25 ng/L (0-10) H 08/08/22 13:48 Troponin T 120 Minute 24.05 ng/L (0-10) H 08/08/22 15:33 Delta Troponin T -0.95 ABS# (0-10) L 08/08/22 15:33 Troponin T Hi Sens 6Hr 25.69 ng/L (0-10) H 08/09/22 05:05 Troponin T Hi Sens 6Hr Delta 0.69 ng/L (0-12) 08/09/22 05:05 C-Reactive Protein 9.4 mg/L (0.0-4.9) H 08/08/22 13:48 NT-Pro-B Natriuret Pep 807 pg/mL (0-125) H 08/08/22 13:48 Total Protein 4.2 g/dL (6.6-8.7) L 08/15/22 03:31 Albumin 2.3 g/dL (3.5-5.2) L 08/15/22 03:31 Globulin 1.9 g/dL (1.3-4.6) 08/15/22 03:31 Triglycerides 109 mg/dL (0-150) 08/10/22 04:16 Cholesterol 66 mg/dL (0-200) 08/10/22 04:16 LDL Cholesterol, Calc 34 mg/dL (50-129) L 08/10/22 04:16 Total VLDL Cholesterol 22 mg/dL (0-30) 08/10/22 04:16 HDL Cholesterol 10 mg/dL (60-100) L 08/10/22 04:16 Cholesterol/HDL Ratio 6.60 mg/dL (0.0-4.40) H 08/10/22 04:16 Procalcitonin 2.36 ng/mL (0-0.5) H 08/15/22 21:19 TSH 0.49 uIU/mL (0.27-4.20) 08/08/22 13:48 Random Cortisol 25.42 ug/dL (2.47-19.5) H 08/11/22 03:45 Urine Color Yellow (Yellow) 08/08/22 17:23 Urine Appearance Hazy (CLEAR) A 08/08/22 17:23 Urine pH 6 (5-7) 08/08/22 17:23 Ur Specific [place] 1.000 (1.005-1.030) L 08/08/22 17:23 Urine Protein Neg (Negative) 08/08/22 17:23 Urine Glucose (UA) Norm (Normal) 08/08/22 17: Urine Ketones Negative (Negative) 08/08/22 17:23 Urine Blood Neg (Negative) 08/08/22 17:23 Urine Nitrate Negative (Negative) 08/08/22 17:23 Urine Bilirubin Neg (Negative) 08/08/22 17:23 Urine Urobilinogen 1 mg/dL (Negative) H 08/08/22 17:23 Ur Leukocyte Esterase 1+ (Negative) H 08/08/22 17:23 Urine RBC 0-4 /hpf (0-2) H 08/08/22 17:23 Urine WBC 5-10 /hpf (0-5) H 08/08/22 17:23 Ur Squamous Epith Cells 0-4 /hpf (0-5) H 08/08/22 17:23 Amorphous Sediment Not Reportable 08/08/22 17:23 Urine Bacteria 4+ /hpf (NONE) H 08/08/22 17:23 RSV Nasal Swab Not detected (Not Detected) 08/08/22 17:27 RSV Nasal Swab Int Cntl Not detected (Not Detected) 08/08/22 17:27 Bronch Specimen Source Right lower lobe 08/16/22 12:10 Bronchial Fluid Color Colorless 08/16/22 12:10 Bronchial Fluid Appearance Clear (CLEAR) 08/16/22 12:10 Bronchial Fluid WBC /uL 08/16/22 12:10 Bronchial Diff Comment Yes 08/16/22 12:10 Adenovirus (PCR) Not detected (Not Detected) 08/08/22 17:27 Coronavirus 229E (PCR) Not detected (NOT DETECT) 08/14/22 09:06 Human Metapneumovir PCR Not detected (Not Detected) 08/08/22 17:27 Influenza A (RT-PCR) Not detected (Not Detected) 08/08/22 17:27 Influenza A (H1) PCR Not detected (Not Detected) 08/08/22 17:27 Influenza A (H3) PCR Not detected (Not Detected) 08/08/22 17:27 Influenza B (RT-PCR) Not detected (Not Detected) 08/08/22 17:27 Parainfluenzae Type 1 Not detected (Not Detected) 08/08/22 17:27 Parainfluenzae Type 2 Not detected (Not Detected) 08/08/22 17:27 Parainfluenzae Type 3 Not detected (Not Detected) 08/08/22 17:27 RSV Ab Comment see note 08/08/22 17:27 Rhinovirus (PCR) Not detected (Not Detected) 08/08/22 17:27 SARS-CoV-2 (PCR) Not detected (NOT DETECT) 08/14/22 09:06 SARS-CoV-2 Ag (Rapid) Negative (Negative) 08/08/22 20:47 Blood Type A Positive 08/12/22 09:10 Rho(D) Type Positive 08/12/22 09:10 Antibody Screen Negative 08/12/22 09:10 Crossmatch See Detail 08/12/22 09:10 Micro: Microbiology 08/14/22 09:45 Gram Stain - Final Sputum - Endotracheal Tube Aspirate Sputum Culture - Final 08/11/22 09:50 Blood Culture - Final Blood NO GROWTH AFTER 5 DAYS 08/11/22 09:39 Blood Culture - Final Blood NO GROWTH AFTER 5 DAYS A&P Assessment and plan (1) Respiratory failure with hypoxia: Status: Acute (2) ARDS (adult respiratory distress syndrome): Status: Acute (3) Aspiration pneumonia: Status: Acute (4) Gastric bezoar: Status: Acute (5) Severe protein-energy malnutrition: Status: Acute (6) Hx of gastric bypass: Status: Acute (7) Nausea and vomiting: Status: Acute (8) Hypoalbuminemia: Status: Chronic (9) Esophageal hiatal hernia: Status: Chronic (10) Grade I diastolic dysfunction: Status: Chronic (11) Hypothyroidism: Status: Chronic Qualifiers: Hypothyroidism type: acquired Qualified Code(s): E03.9 - Hypothyroidism, unspecified (12) UTI due to Klebsiella species: Status: Acute Plan #acute hypoxic respiratory failure secondary to ARDS secondary to aspiration pneumonia/fluid overload #Patient has history of grade 1 diastolic dysfunction-currently +12 L since admission #Hypokalemia - 3.2 ; supplemented today morning #Fever spikes with elevated procal - suspect pneumonia not responding to zosyn -Initially intubated due to aspiration on 08/10/2022-extubated on 08/14/2022 -reintubated 08/16/22 for increasing requirements on high flow nasal cannula - abg 7.42/39/65/25/93% currently on CMV 350/16/8/40% -Currently sedated with fentanyl and propofol-we will target RASS -2; can taper down fentayl further and start on precedex -Currently on Zosyn for aspiration pneumonia as well as UTI 08/08/2022 positive for E. coli as well as Klebsiella; procalcitonin - 2.65 & fever spikes; I will DC Zosyn and start pt on vancomycin and imipenam; s/p bronchoscopy today and BAL from [facility] sent for cutlures; we will send for MRSA nares. -clinically congested and overall net +ve 11 L since admsision; s/p Lasix 40 Mg 1 dose given-patient made about 2.3 L urine- net negative 1L last 24 hrs; we will continue lasix 40 mg twice daily and monitor urine output and adjust Lasix dose accordingly -Monitor renal function/electrolytes/input output -We will continue to support her respiration using ventilator-once FiO2 requirements come down-we will place on SIMV mode and plan for awakening/breathing trials -pt has some end expiratory wheeze - we will continue duoneb nebulizations as scheduled #History of gastric bypass in 2001 #Patient presented with nausea vomiting-with suspected food impaction and large esophageal hiatal hernia which was pushed through EGD on 08/11/2022 -Patient follows up with the surgeon as outpatient-and underwent an endoscopy July 27, 2022-recommended to take small meals-apparently patient is noncompliant -Patient also had a urine cultures positive for Klebsiella and E. coli UTI at the time of admission-possibly contributing to her nausea vomiting -A PICC line has been placed today and patient to receive TPN for nutrition -It is imperative that if she is noncompliant with her small frequent meals-she is at risk of recurrent aspiration leading to respiratory failure on multiple hospital admissions-so we will obtain general surgery consult for gastrostomy/PEG tube placement-once she is more stable respiratory hilliard and meanwhile we will continue her TPN for nutrition -Patient had an NG tube placed earlier during this hospitalization-however now the NG tube came out-she is at high risk for perforation due to her hiatal hernia and so we are avoiding to place an NG tube for now; recommended NG placement under flouro guidance. pt needs Ct evaluation of abdomen with contrast to see what happened to the [facility] ICU CHECKLIST: Problem list updated Verbal orders reviewed and signed Analgesia: Fentanyl Glycemic Control: N/A Nutrition: TPN Restraint Renewal (within 24 hrs): yes Ulcer Prophylaxis: PPI Chemical Thromboprophylaxis: Prophylaxis: Lovenox Mechanical Thromboprophylaxis: SCD Need for Central line: PICC line for TPN Need for Dodd catheter: urine output monitoring Critical Care Time (No Overlap): 45 min This patient has a high probability of sudden, clinically significant deterioration, which requires the highest level of physician preparedness to intervene urgently. I managed/supervised life or organ supporting interventions that required frequent physician assessment. I devoted my full attention in the ICU to the direct care of this patient for the period of time indicated above. Time I spent with family or surrogate(s) is included only if the patient was incapable of providing necessary information or participating in decision making. Time devoted to teaching and to any procedures I billed separately is not included. Services Provided: Telemetry review Mechanical Ventilation Hemodynamic interpretation, assessment and management Review and interpretation of CXR Review and interpretation of lab values Review and interpretation of microbiologic data and culture results Review of medications and administration Review and interpretation of Nutrition requirements and management Discussion of management with other consultants and services Clinical update to family members Attestations Medical Necessity Statement*: still intubated requiring mechanical ventilation Time Spent in Patient Care: Greater than 35 minutes (>than 50% of time spent in counselling and/or direct pt care on unit). Critical Care Time: The high probability of a clinically significant, sudden or life threatening deterioration of the patient's [Pulmonary, GI, Infectious] system(s) required my full and direct attention, intervention and personal management. The critical care time is as shown. 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
[2022-08-16 15:51] LABS: Apprearance, Bronch Wash Clear (CLEAR); Color, Bronc Wash Colorless
[2022-08-16 15:55] LABS: Bronch Source RIGHT LOWER LOBE; PATH Referral Yes
[2022-08-16] MEDS: propofol 1,000 MG/100 ML INJ 7.67 MG IV (16:15)
[2022-08-16 16:51] LABS: Glucose Point of Care 149 mg/dL (70-110)
[2022-08-16 16:53] LABS: Blood Urea Nitrogen 9 mg/dL (8-23); Calcium 8.2 mg/dL (8.5-10.5); Carbon Dioxide 27 mmol/L (22-29); Chloride 110 mmol/L (98-107); Glucose 235 mg/dL (65-115); Osmolality Calculated 312 mOsm/kg (285-295); Sodium 148 mmol/L (136-145)
[2022-08-16 17:58] LABS: Cyto Order Verification No Order
[2022-08-16 20:19] LABS: Total Cells Counted Bronch 200
[2022-08-16] MEDS: acetaminophen 650 mg Supp PR (20:28)
[2022-08-16 21:15] LABS: Glucose Point of Care 169 mg/dL (70-110)
[2022-08-17] VITALS (104 sets, daily range): BP systolic 72–133; BP diastolic 46–88; PULSE 73–111; RESP 12–18; TEMP 37.1–38.2; O2SAT 89–100
--- NOTE | 2022-08-17 | IR_ITS ---
NOTE: Report was unsigned for reason: Order was edited. Original Signature date and time was: 08/17/2022 1336 ADDENDUM WS: [id number] FLUOROSCOPIC GUIDED NASOGASTRIC TUBE PLACEMENT INDICATION: History of gastric bypass. FLUOROSCOPY TIME: 5.4 minutes SPOT FILMS: 4 WS: [id number] FLUOROSCOPIC GUIDED NASOGASTRIC TUBE PLACEMENT INDICATION: History of gastric bypass. TECHNIQUE: Consent was obtained from the referring service on the floor. Timeout was performed. Using fluoroscopic guidance a 12 [place] nasogastric tube was advanced through the RIGHT nostril into the distal esophagus and gastric pouch. 5 cc of Gastrografin was injected to assess anatomy. 035 Glidewire was then advanced through the nasogastric tube into the gastric pouch and subsequently into the gastrojejunal anastomosis. Glidewire and nasogastric tube was advanced into the gastrojejunal anastomosis in the LEFT upper and mid abdomen approximately 17 cm into the jejunum. Nasogastric tube was externally secured. No immediate complication. Partially visualized PICC line and endotracheal tube. Cholecystectomy clips. Surgical clips at the GE junction from gastric bypass. [facility]IR fluoro for NG placemt [id number] IMPRESSION: Uncomplicated placement of 12 [place] nasogastric tube through the gastric pouch into the jejunal portion of the gastrojejunal anastomosis.
[2022-08-17] MEDS: chlorhexidine gluconate 4% Btl 118 mL 1 APPLIC TOPICAL (01:54)
[2022-08-17] MEDS: ipratropium-albuterol 3 mL Neb INHALATION ×4 (02:19→20:33)
[2022-08-17] MEDS: propofol 1,000 MG/100 ML INJ 11.5 MG IV (03:34)
[2022-08-17 04:15] LABS: Basophils # 0.1 10^3/uL (0.0-0.1); Basophils % 0.5 %; Eosinophils % 0.1 %; Hematocrit 29.5 % (37.0-47.0); Hemoglobin 9.4 g/dL (11.5-15.3); Lymphocytes # 3.8 10^3/uL (0.8-4.8); Lymphocytes % 29.3 %; Mean Corpuscular HGB Conc 31.9 g/dL (30.0-36.0); Mean Corpuscular Hemoglobin 34.1 pg (28.0-34.0); Mean Corpuscular Volume 106.9 fl (81-99); Mean Platelet Volume 12.1 fL (7.4-10.4); Monocytes # 1.7 10^3/uL (0.2-0.9); Neutrophils # 5.83 10^3/uL (1.8-7.7); Neutrophils % 45.3 %; Nucleated Red Blood Cells % 0 %; Platelet Count 198 10^3/cmm (130-400); Red Blood Count 2.76 10^6/uL (4.1-5.3); White Blood Count 12.9 10^3/uL (4.0-10.0)
[2022-08-17 04:44] LABS: Alanine Aminotransferase 12 U/L (0-33); Albumin Level 2.2 g/dL (3.5-5.2); Alkaline Phosphatase 132 U/L (35-105); Anion Gap 15.4 (5-19); Aspartate Amino Transferase 30 U/L (0-32); Blood Urea Nitrogen 9 mg/dL (8-23); Calcium 7.8 mg/dL (8.5-10.5); Carbon Dioxide 27 mmol/L (22-29); Chloride 106 mmol/L (98-107); Globulin 2.2 g/dL (1.3-4.6); Glomerular Filtration Rate 161.7 mL/min (90-130); Glucose 174 mg/dL (65-115); Magnesium 1.9 mg/dL (1.7-2.3); Osmolality Calculated 305 mOsm/kg (285-295); Sodium 146 mmol/L (136-145); Total Bilirubin 0.5 mg/dL (0.15-1.2); Total Protein 4.4 g/dL (6.6-8.7)
[2022-08-17] MEDS: pantoprazole 40 mg SDV IVP ×2 (05:09→17:14)
[2022-08-17] MEDS: hydrocortisone 100 mg/2 mL SDV 25 MG IVP ×2 (05:09→17:14)
[2022-08-17 05:19] LABS: Potassium 2.4 mmol/L (3.5-5.1)
--- NOTE | 2022-08-17 05:30 | PC.NURSE ---
Critical Lab Results Patient potassium 2.4, informed hospitalist. New orders received, see MAR for detail.
[2022-08-17 05:37] LABS: ABG PCO2 46.9 mmHg (35-45); ABG PH Result 7.42 (7.35-7.45); Arterial Blood Gas Hematocrit 31.2 % (37-47); Base Excess ABG 5.1 mmol/L (-2.0-2.0); Blood Gas Sample Site Brachial, right; Blood Gas Sample Type Arterial; Carboxyhemoglobin < 0.0 %THgb (0.4-20.1); HCO3 ABG 30.3 mmol/L (22-26); Ionized Calcium Level - ABG 1.2 mmol/L (1.1-1.4); Methemoglobin 0.9 % (0.4-1.5); Oxygen Saturation ABG 90.7; PO2 ABG 65.5 mmHg (80.0-100.0); Total Hemoglobin 10.2 g/dL (12-16)
[2022-08-17 05:38] LABS: Alveolar-Arterial Oxygen Gradi 11.9 mmHg (5-10); Blood Gas Operator Identificat JB; Blood Gas Tidal Volume 0.35; Oxygen Device VENT
[2022-08-17] MEDS: lidocaine 1% 5 ML in potassium chloride premix 100 ML 25 ML IV ×3 (05:43→19:00)
--- NOTE | 2022-08-17 06:00 | XR_ITS ---
WS: [id number] Portable AP upright chest, 08/17/2022 Clinical Data: Aspiration pneumonia Comparison: Portable chest, 08/16/2022 Findings: The patchy bilateral pulmonary opacity has reduced slightly compared to yesterday's chest x -ray. There is a small left effusion. The heart size remains the same. The right PICC line and endotr acheal tube remain in good position. Monitor leads are on the chest wall. There is a recording device over the left cardiac border. There are surgical clips overlying the upper abdomen. XR/XR chest 1V portable [id number] Impression: 1. Slight decrease in pulmonary opacity compared to yesterday. 2. No change in position of right PICC line and endotracheal tube.
--- NOTE | 2022-08-17 06:07 | PC.NURSE ---
Shift Note Frequent safety and comfort rounds continue. Orders and/or nursing care completed as indicated. Patient monitored for response to intervention and treatment(s). Education provided includes oral care & medications. Patient family verbalized understanding but needs reinforcement teaching. Patient had an uneventful shift, remains intubated at this time. Vent settings are as follows; [id number], FiO2-30%, VT-350, PEEP-8, rate-12. Propofol, Fentanyl, TPN, Levophed and Potassium infusing per protocol please see MAR for infusion rates. Patient opens eyes spontaneously but does not follow commands. Patient had temperature overnight, PRN Tylenol supp administered. Wounds noted to bilateral arms and right buttock, please see wound assessment for detail. Frequently turned & repositioned patient overnight with assistance from nursing staff. Will continue to monitor.
[2022-08-17] MEDS: lidocaine 1% INJ 20 mL MDV (mL) ENDOTRACHE (07:24)
[2022-08-17 08:06] LABS: Glucose Point of Care 159 mg/dL (70-110)
[2022-08-17] MEDS: budesonide 0.5 mg/2 mL Neb INHALATION ×2 (08:19→20:33)
[2022-08-17] MEDS: FUROsemide 10 mg/mL SDV 4mL 40 MG IVP ×2 (09:30→20:48)
--- NOTE | 2022-08-17 09:35 | P.PN_ITS ---
Subjective Subjective: - Pt was seen at bedside today - currently sedated with fentanyl 25 mcg/hr, propofol 30 mcg/hr , Levophed 2 - FIO2 down to 40% - currently receiving TPN - Good urine output - chest x ray improving -Low-grade fever spikes - other labs and imaging reviewed - hypokalemia 2.4- supplemented Medications: Reviewed: Yes Vitals/I&O/Wt Last Vital Signs Temp 99.7 F H 08/17/22 04:45 Pulse 84 08/17/22 08:00 Resp 16 08/17/22 08:22 BP 103/71 08/17/22 06:00 Pulse Ox 99 08/17/22 08:22 O2 Del Method 08/17/22 08:00 O2 Flow Rate 70 08/16/22 00:00 FiO2 40 08/17/22 08:22 08/16/22 08/17/22 08/17/22 22:59 06:59 14:59 Intake Total 1397.938 / 2366.289 812.6123 / 3188.9469 95 / 95 Output Total 1900 / 2750 Balance 1397.938 / 1516.834 -1077.8871 / 438.9469 95 / 95 Physical Exam Narrative: PHYSICAL EXAM: General: lying in bed, sedated and intubated HEENT:NCAT, PERRLA, EOMI Neck: Supple Lungs: 1000 Improving breath sounds well Heart: s1/s2, RRR Abd: soft, NT, ND, BS + Normoactive Extremities: 1+ pitting pedal edema bilaterally; 1+ pitting anasarca over abdominal wall LEAD PROJECT MANAGER: No focal deficits-follows commands prior to intubation. SKIN: Scattered sores and bruises in different stages of healing? LDA: # CVC: Right PICC line 08/15/2022 Urinary Catheter Management: Dodd: Cath Placed During This Visit: yes Reason for Continuing Indwelling Catheter: Accurate Measurement of Urinary Output in Critically Ill Patients Urinary Catheter Date of Insertion: 08/11/22 Urinary Catheter Time of Insertion: 00:20 Data : 08/17/22 03:08 08/17/22 03:08 Other Labs: Radiology Impressions Head CT 08/08/22 13:35 IMPRESSION: 1. No evidence of intracranial hemorrhage or mass effect. 2. Mild small vessel changes. Mild parenchymal volume loss. 3. No acute intracranial findings. Chest/Abdomen/Pelvis CT 08/08/22 14:46 IMPRESSION: 1. Small LEFT greater than RIGHT pleural effusions with compressive atelectasis in the lung bases. 2. A few patchy hazy ground glass infiltrates in both lower lobes and LEFT greater than RIGHT upper lobes likely infectious or inflammatory. No focal pneumonia. 3. Postoperative changes GE junction with moderate to large esophageal hiatal hernia. Fluid distended thoracic esophagus with air-fluid level. Hiatal hernia appears progressed compared to March 30, 2022 some of which may be due to fluid distention. 4. Diffuse fatty infiltration liver. Hepatomegaly. 5. Diffuse body wall anasarca. 6. Small volume pelvic ascites. 7. Air-fluid level in the bladder likely due to recent instrumentation. 8. No evidence of high-grade small or large bowel obstruction. 9. Chronic compression deformities L1 and L4 unchanged since March 30, 2022. 10. Prior gastric bypass, cholecystectomy, hysterectomy. Upper GI Series 08/10/22 13:59 IMPRESSION: 1. Large hiatal hernia and status post gastric bypass. 2. Favor this large hiatal hernia contains food products, bezoar-like material. 3. Liquid contrast did exit this large hernia but there may be a partial outlet obstruction. None of the food products did exit during this examination. KUB X-Ray 08/11/22 12:05 IMPRESSION: 1. Multiple dilated loops of small bowel in the left upper quadrant. There is gas and stool throughout the majority of the colon. This could reflect small-bowel obstruction or ileus. 2. Bibasilar opacities and bilateral pleural effusions, left greater than right. ADDENDUM: 08/11/22 1414 Findings discussed with MARIA E RAMOS at 08/11/2022 2:12 PM CDT. Chest X-Ray 08/17/22 06:00 Impression: 1. Slight decrease in pulmonary opacity compared to yesterday. 2. No change in position of right PICC line and endotracheal tube. Laboratory Results WBC 12.9 10^3/uL (4.0-10.0) H 08/17/22 03:08 RBC 2.76 10^6/uL (4.1-5.3) L 08/17/22 03:08 Hgb 9.4 g/dL (11.5-15.3) L 08/17/22 03:08 Hct 29.5 % (37.0-47.0) L 08/17/22 03:08 MCV 106.9 fl (81-99) H 08/17/22 03:08 MCH 34.1 pg (28.0-34.0) H 08/17/22 03:08 MCHC 31.9 g/dL (30.0-36.0) 08/17/22 03:08 RDW 19.0 % (12.1-15.1) H 08/17/22 03:08 Plt Count 198 10^3/cmm (130-400) D 08/17/22 03:08 MPV 12.1 fL (7.4-10.4) H 08/17/22 03:08 Neut % (Auto) 45.3 % 08/17/22 03:08 Lymph % (Auto) 29.3 % 08/17/22 03:08 [place] % (Auto) 13.0 % 08/17/22 03:08 Eos % (Auto) 0.1 % 08/17/22 03:08 Baso % (Auto) 0.5 % 08/17/22 03:08 Neut # (Auto) 5.83 10^3/uL (1.8-7.7) 08/17/22 03:08 Lymph # (Auto) 3.8 10^3/uL (0.8-4.8) 08/17/22 03:08 [place] # (Auto) 1.7 10^3/uL (0.2-0.9) H 08/17/22 03:08 Eos # (Auto) 0.0 10^3/uL (0.0-0.8) 08/17/22 03:08 Baso # (Auto) 0.1 10^3/uL (0.0-0.1) 08/17/22 03:08 Nucleated RBC % (auto) 0 % 08/17/22 03:08 Total Counted 100 (0-100) 08/16/22 02:19 Atypical Lymphs % 0.0 % (0-5) 08/16/22 02:19 Segmented Neutrophils 63 % 08/16/22 02:19 Band Neutrophils 3.0 % 08/16/22 02:19 Lymphocytes (Manual) 22 % 08/16/22 02:19 Monocytes (Manual) 11.0 % 08/16/22 02:19 Eosinophils (Manual) 0 % 08/16/22 02:19 Basophils (Manual) 0.0 % 08/16/22 02:19 Metamyelocytes 1.0 % 08/16/22 02:19 Nucleated RBCs # 0.0 /100WBC 08/17/22 03:08 Toxic Vacuolation 1+ H 08/16/22 02:19 Platelet Estimate Normal (Normal) 08/16/22 02:19 Polychromasia 1+ H 08/16/22 02:19 Anisocytosis 2+ H 08/16/22 02:19 Macrocytosis 2+ H 08/16/22 02:19 D-Dimer 0.75 ug/mIFEU (0-0.59) H 08/10/22 04:16 Specimen Type Arterial 08/17/22 05:24 Sample Site Brachial, right 08/17/22 05:24 ABG pH 7.42 (7.35-7.45) 08/17/22 05:24 ABG pCO2 46.9 mmHg (35-45) H 08/17/22 05:24 ABG pO2 65.5 mmHg (80.0-100.0) L 08/17/22 05:24 ABG HCO3 30.3 mmol/L (22-26) H 08/17/22 05:24 ABG O2 Saturation 90.7 08/17/22 05:24 ABG Base Excess 5.1 mmol/L (-2.0-2.0) H 08/17/22 05:24 Oliver Test N/a 08/17/22 05:24 A-a O2 Gradient 11.9 mmHg (5-10) H 08/17/22 05:24 Hematocrit 31.2 % (37-47) L 08/17/22 05:24 Hgb O2 Saturation 90.0 % (95-100) L 08/17/22 05:24 Carboxyhemoglobin < 0.0 %THgb (0.4-20.1) L 08/17/22 05:24 Methemoglobin 0.9 % (0.4-1.5) 08/17/22 05:24 Total Hemoglobin 10.2 g/dL (12-16) L 08/17/22 05:24 Sodium 145.0 mmol/L (131-143) H 08/17/22 05:24 Potassium 2.0 mmol/L (3.5-5.0) L 08/17/22 05:24 Glucose 141.0 mg/dL (70-115) H 08/17/22 05:24 Ionized Calcium 1.2 mmol/L (1.1-1.4) 08/17/22 05:24 O2 Delivery Device Vent 08/17/22 05:24 O2 Liters/Min 55.0 % 08/15/22 13:50 FiO2 30.0 % 08/17/22 05:24 Tidal Volume 0.35 08/17/22 05:24 PEEP 8.0 cmH20 08/17/22 05:24 Ornamental Brick Installer ID Kory 08/17/22 05:24 Sodium 146 mmol/L (136-145) H 08/17/22 03:08 Potassium 2.4 mmol/L (3.5-5.1) L* 08/17/22 03:08 Chloride 106 mmol/L (98-107) 08/17/22 03:08 Carbon Dioxide 27 mmol/L (22-29) 08/17/22 03:08 Anion Gap 15.4 (5-19) 08/17/22 03:08 BUN 9 mg/dL (8-23) 08/17/22 03:08 Creatinine 0.4 mg/dL (0.5-0.9) L 08/17/22 03:08 GFR Calculation 161.7 mL/min (90-130) H 08/17/22 03:08 Glucose 174 mg/dL (65-115) H 08/17/22 03:08 POC Glucose 159 mg/dL (70-110) H 08/17/22 07:48 Estimat Average Glucose 59 08/10/22 04:16 Hemoglobin A1c 3.7 % (4.0-6.0) L 08/10/22 04:16 Calculated Osmolality 305 mOsm/kg (285-295) H 08/17/22 03:08 Lactic Acid 2.6 mmol/L (0.5-2.2) H 08/08/22 20:25 Lactate 1.4 mmol/L (0.5-2.2) 08/09/22 05:05 Calcium 7.8 mg/dL (8.5-10.5) L 08/17/22 03:08 Phosphorus 2.4 mg/dL (2.5-4.5) L 08/16/22 02:19 Magnesium 1.9 mg/dL (1.7-2.3) 08/17/22 03:08 Total Bilirubin 0.5 mg/dL (0.15-1.2) 08/17/22 03:08 AST 30 U/L (0-32) 08/17/22 03:08 ALT 12 U/L (0-33) 08/17/22 03:08 Alkaline Phosphatase 132 U/L (35-105) H 08/17/22 03:08 Troponin T Gen 5 ng/L 28 ng/L (0-10) H 08/10/22 04:16 Troponin T Baseline 25 ng/L (0-10) H 08/08/22 13:48 Troponin T 120 Minute 24.05 ng/L (0-10) H 08/08/22 15:33 Delta Troponin T -0.95 ABS# (0-10) L 08/08/22 15:33 Troponin T Hi Sens 6Hr 25.69 ng/L (0-10) H 08/09/22 05:05 Troponin T Hi Sens 6Hr Delta 0.69 ng/L (0-12) 08/09/22 05:05 C-Reactive Protein 9.4 mg/L (0.0-4.9) H 08/08/22 13:48 NT-Pro-B Natriuret Pep 807 pg/mL (0-125) H 08/08/22 13:48 Total Protein 4.4 g/dL (6.6-8.7) L 08/17/22 03:08 Albumin 2.2 g/dL (3.5-5.2) L 08/17/22 03:08 Globulin 2.2 g/dL (1.3-4.6) 08/17/22 03:08 Triglycerides 109 mg/dL (0-150) 08/10/22 04:16 Cholesterol 66 mg/dL (0-200) 08/10/22 04:16 LDL Cholesterol, Calc 34 mg/dL (50-129) L 08/10/22 04:16 Total VLDL Cholesterol 22 mg/dL (0-30) 08/10/22 04:16 HDL Cholesterol 10 mg/dL (60-100) L 08/10/22 04:16 Cholesterol/HDL Ratio 6.60 mg/dL (0.0-4.40) H 08/10/22 04:16 Procalcitonin 2.36 ng/mL (0-0.5) H 08/15/22 21:19 TSH 0.49 uIU/mL (0.27-4.20) 08/08/22 13:48 Random Cortisol 25.42 ug/dL (2.47-19.5) H 08/11/22 03:45 Urine Color Yellow (Yellow) 08/08/22 17:23 Urine Appearance Hazy (CLEAR) A 08/08/22 17:23 Urine pH 6 (5-7) 08/08/22 17:23 Ur Specific [place] 1.000 (1.005-1.030) L 08/08/22 17:23 Urine Protein Neg (Negative) 08/08/22 17:23 Urine Glucose (UA) Norm (Normal) 08/08/22 17:23 Urine Ketones Negative (Negative) 08/08/22 17:23 Urine Blood Neg (Negative) 08/08/22 17:23 Urine Nitrate Negative (Negative) 08/08/22 17:23 Urine Bilirubin Neg (Negative) 08/08/22 17:23 Urine Urobilinogen 1 mg/dL (Negative) H 08/08/22 17:23 Ur Leukocyte Esterase 1+ (Negative) H 08/08/22 17:23 Urine RBC 0-4 /hpf (0-2) H 08/08/22 17:23 Urine WBC 5-10 /hpf (0-5) H 08/08/22 17:23 Ur Squamous Epith Cells 0-4 /hpf (0-5) H 08/08/22 17:23 Amorphous Sediment Not Reportable 08/08/22 17:23 Urine Bacteria 4+ /hpf (NONE) H 08/08/22 17:23 RSV Nasal Swab Not detected (Not Detected) 08/08/22 17:27 RSV Nasal Swab Int Cntl Not detected (Not Detected) 08/08/22 17:27 Bronch Specimen Source Right lower lobe 08/16/22 12:10 Bronchial Fluid Color Colorless 08/16/22 12:10 Bronchial Fluid Appearance Clear (CLEAR) 08/16/22 12:10 Bronchial Fluid WBC 940 /uL 08/16/22 12:10 Bronchial Fluid RBC 1 10^3/uL 08/16/22 12:10 Bronch Cells Counted 200 08/16/22 12:10 Bronchial Neutrophils 178.00 % (0.9-2.3) H 08/16/22 12:10 Bronchial Lymphocytes 20.00 % (10.71-12.91) H 08/16/22 12:10 Bronchial Diff Comment Yes 08/16/22 12:10 Adenovirus (PCR) Not detected (Not Detected) 08/08/22 17:27 Coronavirus 229E (PCR) Not detected (NOT DETECT) 08/14/22 09:06 Human Metapneumovir PCR Not detected (Not Detected) 08/08/22 17:27 Influenza A (RT-PCR) Not detected (Not Detected) 08/08/22 17:27 Influenza A (H1) PCR Not detected (Not Detected) 08/08/22 17:27 Influenza A (H3) PCR Not detected (Not Detected) 08/08/22 17:27 Influenza B (RT-PCR) Not detected (Not Detected) 08/08/22 17:27 Parainfluenzae Type 1 Not detected (Not Detected) 08/08/22 17:27 Parainfluenzae Type 2 Not detected (Not Detected) 08/08/22 17:27 Parainfluenzae Type 3 Not detected (Not Detected) 08/08/22 17:27 RSV Ab Comment see note 08/08/22 17:27 Rhinovirus (PCR) Not detected (Not Detected) 08/08/22 17:27 SARS-CoV-2 (PCR) Not detected (NOT DETECT) 08/14/22 09:06 SARS-CoV-2 Ag (Rapid) Negative (Negative) 08/08/22 20:47 Blood Type A Positive 08/12/22 09:10 Rho(D) Type Positive 08/12/22 09:10 Antibody Screen Negative 08/12/22 09:10 Crossmatch See Detail 08/12/22 09:10 Micro: Microbiology 08/14/22 09:45 Gram Stain - Final Sputum - Endotracheal Tube Aspirate Sputum Culture - Final 08/11/22 09:50 Blood Culture - Final Blood NO GROWTH AFTER 5 DAYS 08/11/22 09:39 Blood Culture - Final Blood NO GROWTH AFTER 5 DAYS A&P Assessment and plan (1) Respiratory failure with hypoxia: Status: Acute (2) ARDS (adult respiratory distress syndrome): Status: Acute (3) Aspiration pneumonia: Status: Acute (4) Gastric bezoar: Status: Acute (5) Severe protein-energy malnutrition: Status: Acute (6) Hx of gastric bypass: Status: Acute (7) Nausea and vomiting: Status: Acute (8) Hypoalbuminemia: Status: Chronic (9) Esophageal hiatal hernia: Status: Chronic (10) Grade I diastolic dysfunction: Status: Chronic (11) Hypothyroidism: Status: Chronic Qualifiers: Hypothyroidism type: acquired Qualified Code(s): E03.9 - Hypothyroidism, unspecified (12) UTI due to Klebsiella species: Status: Acute Plan #acute hypoxic respiratory failure secondary to ARDS secondary to aspiration pneumonia/fluid overload #Patient has history of grade 1 diastolic dysfunction-currently +12 L since admission #Hypokalemia -2.4; supplemented today morning #Fever spikes with elevated procal - suspect pneumonia not responding to zosyn -Initially intubated due to aspiration on 08/10/2022-extubated on 08/14/2022 -reintubated 08/16/22 for increasing requirements on high flow nasal cannula - abg 7.4 3/47/65/30 /90% currently on SIMV 350/12/8/30 % -Currently sedated with fentanyl 25 and propofol 30-we will target RASS -2; can taper down propofol further and start on precedex -Target MAP 65-Taper down Levophed -Currently on Zosyn for aspiration pneumonia as well as UTI 08/08/2022 positive for E. coli as well as Klebsiella; procalcitonin - 2.65 & fever spikes; discontinued Zosyn and started pt on vancomycin and imipenam; s/p bronchoscopy 08/16/2022 and BAL from [facility]-cultures pending -clinically congested and overall net +ve 12 we will L since admsision; patient is on TPN and it adds more volume; plan is to get fluoroscopy guidance NG tube and discontinue TPN in next couple of days -Renal functions are good-we will continue Lasix 40 Mg twice daily and try to keep net negative fluid balance -Hypokalemia 2.4-supplemented with KCl 40 meq 2 doses-closely monitor -Monitor renal function/electrolytes/input output -We will continue to support her respiration using SIMV mode -pt has some end expiratory wheeze - we will continue duoneb nebulizations as scheduled #History of gastric bypass in 2001 #Patient presented with nausea vomiting-with suspected food impaction and large esophageal hiatal hernia which was pushed through EGD on 08/11/2022 -Patient follows up with the surgeon as outpatient-and underwent an endoscopy July 27, 2022-recommended to take small meals-apparently patient is noncompliant -Patient also had a urine cultures positive for Klebsiella and E. coli UTI at the time of admission-possibly contributing to her nausea vomiting -A PICC line has been placed and patient to receive TPN for nutrition -It is imperative that if she is noncompliant with her small frequent meals-she is at risk of recurrent aspiration leading to respiratory failure on multiple hospital admissions-so we will obtain general surgery consult for gas trostomy/PEG tube placement-once she is more stable respiratory hilliard and meanwhile we will continue her TPN for nutrition -Patient had an NG tube placed earlier during this hospitalization-however now the NG tube came out-she is at high risk for perforation due to her hiatal hernia and so plan is to place an NG tube under fluoroscopy and start NG feeding; we will discontinue TPN once starting NG feeding ICU CHECKLIST: Problem list updated Verbal orders reviewed and signed Analgesia: Fentanyl Glycemic Control: N/A Nutrition: TPN Restraint Renewal (within 24 hrs): yes Ulcer Prophylaxis: PPI Chemical Thromboprophylaxis: Prophylaxis: Lovenox Mechanical Thromboprophylaxis: SCD Need for Central line: PICC line for TPN Need for Dodd catheter: urine output monitoring Critical Care Time (No Overlap): 45 min This patient has a high probability of sudden, clinically significant deterioration, which requires the highest level of physician preparedness to intervene urgently. I managed/supervised life or organ supporting interventions that required frequent physician assessment. I devoted my full attention in the ICU to the direct care of this patient for the period of time indicated above. Time I spent with family or surrogate(s) is included only if the patient was incapable of providing necessary information or participating in decision making. Time devoted to teaching and to any procedures I billed separately is not included. Services Provided: Telemetry review Mechanical Ventilation Hemodynamic interpretation, assessment and management Review and interpretation of CXR Review and interpretation of lab values Review and interpretation of microbiologic data and culture results Review of medications and administration Review and interpretation of Nutrition requirements and management Discussion of management with other consultants and services Clinical update to family members Attestations Medical Necessity Statement*: still intubated requiring mechanical ventilation Time Spent in Patient Care: Greater than 35 minutes (>than 50% of time spent in counselling and/or direct pt care on unit) . Critical Care Time: The high probability of a clinically significant, sudden or life threatening deterioration of the patient's [Pulmonary, GI, Infectious] s ystem(s) required my full and direct attention, intervention and personal management. The critical care time is as shown. This time is in addition to time spent performing any reported procedures but includes the following: [x] Data and vital sign review and interpretation [x] Patient assessment, examination and intervention [x] Documentation [x] Medication orders and management Critical Care Time (min): 45 Coding Level of Care Code Established Pt Acute Firebrick Layer for Chg Fwd Patient Type Established History Comprehensive Exam Comprehensive Medical Decision Making High Complexity Diagnoses Respiratory failure with hypoxia J96.91 ARDS (adult respiratory distress syndrome) J80 Aspiration pneumonia J69.0 Gastric bezoar T18.2XXA Severe protein-energy malnutrition E43 Hx of gastric bypass Z98.84 Nausea and vomiting R11.2 Hypoalbuminemia E88.09 Esophageal hiatal hernia K44.9 Grade I diastolic dysfunction I51.89 Hypothyroidism E03.9 Hypothyroidism type: acquired UTI due to Klebsiella species N39.0; B96.89 Time Spent (min) 45
--- NOTE | 2022-08-17 11:00 | FL_ITS ---
WS: [id number] FLUOROSCOPIC GUIDED NASOGASTRIC TUBE PLACEMENT INDICATION: History of gastric bypass. TECHNIQUE: Consent was obtained from the referring service on the floor. Timeout was performed. Using fluoroscopic guidance a 12 [place] nasogastric tube was advanced through the RIGHT nostril into the d istal esophagus and gastric pouch. 5 cc of Gastrografin was injected to assess anatomy. 035 Glidewire was then advanced through the nasogastric tube into the gastric pouch and subsequently into the hank rojejunal anastomosis. Glidewire and nasogastric tube was advanced into the gastrojejunal anastomosis in the LEFT upper and mid abdomen approximately 17 cm into the jejunum. Nasogastric tube was externa lly secured. No immediate complication. Partially visualized PICC line and endotracheal tube. Cholecystectomy clips. Surgical clips at the GE junction from gastric bypass.
[2022-08-17] MEDS: diatrizoate meglumine 120 mL Sol PO (11:54)
[2022-08-17 12:08] LABS: Glucose Point of Care 151 mg/dL (70-110)
--- NOTE | 2022-08-17 12:31 | PC.SOCIAL ---
IMM update IMM not updated as patient is still intubated and not expected to dc in the next 24-48 hours.
--- NOTE | 2022-08-17 12:57 | CT_ITS ---
WS: [id number] CT abdomen pelvis wo con [id number] REASON FOR EXAM: r/o bowel obstruction IV CONTRAST ADMINISTERED: No intravenous contrast. Oral contrast administered through the per nasal s mall bowel intubation tube. TOTAL EXAM DLP: 706.[address] scans at [facility] use at least one of these dose optimization techniques: automat ed exposure control; mA and/or kV adjustment per patient size (includes targeted exams where dose is matched to clinical indication); or iterative reconstruction. FINDINGS: The intubation tube passes from the esophagus through an area of multiple surgical clips entering sma ll bowel in the anterior abdomen. Contrast injected contrast fills normal caliber and segments of mildly dilated distal small bowel and colon. Rectum is opacified. There is an opacified small bowel loop anterior to the stomach which appears to blind end. No contras t is identified within the perceived stomach. Extending from the stomach along the inferior margin of the liver and then turning medially is the presumed duodenum. This leads to mildly dilated faintly o pacified small bowel loops in the right upper abdomen. No filling defect is identified in any of the opacified bowel loops. Extensive fatty infiltration of the liver and atrophy and fatty infiltration the pancreas. Extensive edema in the fat of the abdominal wall. There is free fluid in the pelvis. This was seen on the previous CT scan 08/08/2022. Dodd catheter in the bladder. There is air in the bladder presumably related to Dodd catheter place ment. CT/CT abdomen pelvis wo con [id number] IMPRESSION: Complex gastric bypass surgery incompletely defined. There is mild dilatation of small bowel as well as normal caliber small bowel. From the tip of the intubation tube distally there is no obstruction to flow of contrast with opacification of colon and rectum.
--- NOTE | 2022-08-17 13:12 | PC.CHAP ---
Pastoral Care Encounter/Spiritual Assessment Type of Contact [] Declined field care coordinator visit [] Patient/Family/Request visit [] Outpatient visit [] Follow-up visit [] Physician referral [] Code/Alert [x] Routine visit [] Staff referral [] Actively dying [x] Patient sleeping [] Family support [] [] Out of room [] Palliative care [] [] Receiving care in room [] Pre-surgical visit [] Trauma [] Long length of stay [x] ICU visit [] Other: Relational/Emotional Strength [] Patient feels connected with others/family/visitors/staff [] Distress [] Loneliness/isolation [] Abandonment Spirituality of Patient [] Person of Alexandra [] Attends Pentecostalism of their Alexandra [] Believes in Prayer [] Reads Bible or Congregation materials [] There are Spiritual issues to be addressed Podiatric Foot And Ankle Specialist Interventions [x] Prayer [] Active listening [] Non-anxious presence [] Spiritual/emotional support [] Crisis/trauma care [] Spiritual counseling [] Bereavement support [] Provided bereavement packet [] Provided Bible/devotional materials [] Provided toy/stuffed animal, coloring book to patient or family member [] Provided Communion [] Anointing/[place] [] Salvation [x] Completed spiritual assessment [] Other: Impact on Illness or Injury [] Angry [] Fearful [] Anxious [] Often cries [] Exhaustion [] Unable to work [] Unable to attend yazidism [] Unable to walk/stand [] Unable to read [] Unable to drive [] Unable to eat/drink [] Unable to sleep [] Unable to be with family [] Patient intubated [] Other: Summary Time spent with patient
[2022-08-17] MEDS: propofol 1,000 MG/100 ML INJ 5.75 MG IV (13:30)
--- NOTE | 2022-08-17 15:19 | P.PN_ITS ---
Subjective Subjective: Intubated sedated. Urine output 1900 cc. FiO2 down to 30% today. Plan for NG tube insertion under fluoroscopy guidance and subsequently CT abdomen pelvis with oral contrast. Currently on Levophed propofol and 2 of Levophed. Currently on TPN Chest x-ray improving hypokalemia, potassium 2.4 today. Vitals/I&O/Wt Last Vital Signs Temp 100.7 F H 08/17/22 07:00 Pulse 98 08/17/22 14:15 Resp 16 08/17/22 14:29 BP 98/76 08/17/22 14:15 Pulse Ox 99 08/17/22 14:29 O2 Del Method 08/17/22 14:00 O2 Flow Rate 70 08/16/22 00:00 FiO2 35 08/17/22 14:29 08/17/22 08/17/22 08/17/22 06:59 14:59 22:59 Intake Total 822.1129 / 3188.9469 703.575 / 703.575 Output Total 1900 / 2750 800 / 800 Balance -1077.8871 / 438.9469 -96.425 / -96.425 Physical Exam Narrative: Constitutional: Intubated sedated, 30% FiO2 HEENT: Bitemporal wasting, extraocular movements intact, moist mucous membranes Respiratory: Bibasilar crackles, no wheezes, no accessory muscle use, Cardiovascular: Regular rate and rhythm, no gallops or rubs, slightly tachycardic Abdomen: Soft, nontender, positive bowel sounds, nondistended Extremities: 1+ edema bilaterally in lower extremities, muscle wasting noted Skin: Scattered sores and bruises in different stages of healing with iatrogenic changes noted to the upper extremities in particular from blood draws Urinary Catheter Management: Dodd: Cath Placed During This Visit: yes Reason for Continuing Indwelling Catheter: Accurate Measurement of Urinary Output in Critically Ill Patients Urinary Catheter Date of Insertion: 08/11/22 Urinary Catheter Time of Insertion: 00:20 Data : 08/17/22 03:08 08/17/22 03:08 Micro: Microbiology 08/16/22 Unknown MRSA Culture - Final Nose 08/16/22 12:10 Gram Stain - Final Lung Right Lower Lobe A&P Assessment and plan (1) Gastric bezoar: Status: Acute (2) Hx of gastric bypass: Status: Acute (3) Severe protein-energy malnutrition: Status: Acute (4) Aspiration pneumonia: Status: Acute (5) Hypernatremia: Status: Acute (6) Respiratory failure with hypoxia: Status: Acute (7) Orthostatic hypotension: Status: Chronic (8) Major depression, recurrent, full remission: Status: Chronic (9) Nausea and vomiting: Status: Acute (10) Post-traumatic stress disorder, chronic: Status: Chronic (11) Generalized anxiety disorder: Status: Chronic (12) Borderline personality disorder: Status: Chronic (13) Minor neurocognitive disorder: Status: Chronic (14) Encounter for long-term opiate analgesic use: Status: Chronic (15) Chronic lumbar radiculopathy: Status: Chronic (16) Status post gastric bypass for obesity: Status: Chronic (17) Frequent falls: Status: Acute (18) Hypoalbuminemia: Status: Chronic (19) Pneumonia: Status: Acute Qualifiers: Pneumonia type: aspiration pneumonia (20) Chronic migraine: Status: Chronic (21) Hypothyroidism: Status: Chronic Qualifiers: Hypothyroidism type: acquired Qualified Code(s): E03.9 - Hypothyroidism, unspecified (22) Grade I diastolic dysfunction: Status: Chronic (23) Esophageal hiatal hernia: Status: Chronic (24) Macrocytic anemia: Status: Chronic (25) DDD (degenerative disc disease), lumbar: Status: Chronic (26) UTI due to Klebsiella species: Status: Acute (27) ARDS (adult respiratory distress syndrome): Status: Acute (28) Fever: Status: Acute Plan #Acute respiratory failure with hypoxia #Vent dependent respiratory failure #Aspiration pneumonia #Nausea, vomiting #Pseudo gastric outlet obstruction #Hypernatremia #Status post gastric bypass surgery for obesity #Grade 1 diastolic dysfunction with generalized anasarca #Severe protein calorie malnutrition #Orthostatic hypotension #Hypothyroidism #Macrocytic anemia chronic #Chronic esophageal hiatal hernia #Gastric bezoar --Initially intubated due to aspiration on 08/10/2022-extubated on 08/14/2022 -Reintubated 08/15/2022 -Continue to diurese patient. Lasix 40 IV twice daily -Continue fentanyl and propofol ? Continue Zosyn. We will add vancomycin. I will repeat blood cultures, urine culture. ? Check MRSA nares ? Initially had UTI on 08/08/2022 for E. coli and Klebsiella. Zosyn will cover ? Precedex stop on 08/15/2022 ? Hold midodrine and fludrocortisone ? NG tube that was initially placed was pulled out somehow on 08/13/2022. ? We will order for fluoroscopic guided NG tube placement with radiology. Had a long discussion with radiologist Dr. Marquez yesterday. There is seem to be a stenosis around GE junction on previous CAT scan. If unable to get NG tube into the stomach he will leave it distally in the esophagus so oral contrast can be administered. At that point we will check a CT scan abdomen pelvis with oral contrast to evaluate for intestinal obstruction to guide further management. Patient is at high risk of perforation due to history of gastric bypass surgery therefore NG tube will be attempted with fluoroscopy guidance. ? Long-term due to repeated risk of aspiration secondary to patient's esophageal hernia and generalized deconditioning and critical care polyneuropathy patient may need to have PEG/gastrostomy tube placement with a potential tracheostomy if they are unable to extubate her. -If patient does have a intestinal obstruction or narrowing/stenosis in GI tract we may need to transfer patient to higher level of care since we will not have bariatric surgeon available here over the weekend. -I have discussed all of the above with patient's who was in agreement. Attempted to update today but unable to get a hold of him over the phone ? Check CT abdomen pelvis with oral contrast. Contrast to be administered to NG tube. -For now for nutrition continue TPN support ? Continue to wean down oxygen with goal of extubating patient once patient is more euvolemic and oxygen requirements come down -Pulmonology consulted, recommendations appreciated ? We will replete potassium -Sputum culture pending, COVID PCR pending ?We will stop fluconazole after discussion with water server. ? Continue nebulization steroids Pulmicort -Psych consulted for patient's paranoia. Consult note pending. DVT prophylaxis: Continue to monitor platelets. Hold off on Lovenox for now. Continue SCDs. Attestations Medical Necessity Statement*: Critically ill in ICU Coding Level of Care Code Acute [employer] for Chg Fwd Diagnoses Gastric bezoar T18.2XXA Hx of gastric bypass Z98.84 Severe protein-energy malnutrition E43 Aspiration pneumonia J69.0 Hypernatremia E87.0 Respiratory failure with hypoxia J96.91 Orthostatic hypotension I95.1 Major depression, recurrent, full remission F33.42 Nausea and vomiting R11.2 Post-traumatic stress disorder, chronic F43.12 Generalized anxiety disorder F41.1 Borderline personality disorder F60.3 Minor neurocognitive disorder G31.84 Encounter for long-term opiate analgesic use Z79.891 Chronic lumbar radiculopathy M54.16 Status post gastric bypass for obesity Z98.84 Frequent falls R29.6 Hypoalbuminemia E88.09 Pneumonia J18.9 Pneumonia type: aspiration pneumonia Chronic migraine Hypothyroidism E03.9 Hypothyroidism type: acquired Grade I diastolic dysfunction I51.89 Esophageal hiatal hernia K44.9 Macrocytic anemia D53.9 DDD (degenerative disc disease), lumbar M51.36 UTI due to Klebsiella species N39.0; B96.89 ARDS (adult respiratory distress syndrome) J80 Fever R50.9
[2022-08-17] MEDS: iohexol 350 mg/mL 100 mL Btl PO (15:34)
[2022-08-17 16:20] LABS: Glucose Point of Care 98 mg/dL (70-110)
[2022-08-17] MEDS: BuSPIRONE 10 mg Tablet 30 MG PO (17:13)
[2022-08-17] MEDS: sucralfate 1 gm/10 mL Oral Liq UDC PO (17:13)
[2022-08-17] MEDS: ascorbic acid 500 mg Tablet 1000 MG PO (17:13)
[2022-08-17] MEDS: nystatin 100,000 unit/mL UDC 5 mL 100000 UNIT PO (17:14)
[2022-08-17 17:35] LABS: Blood Urea Nitrogen 9 mg/dL (8-23); Calcium 7.8 mg/dL (8.5-10.5); Carbon Dioxide 30 mmol/L (22-29); Chloride 101 mmol/L (98-107); Glomerular Filtration Rate 225.4 mL/min (90-130); Glucose 309 mg/dL (65-115); Magnesium 1.8 mg/dL (1.7-2.3); Osmolality Calculated 300 mOsm/kg (285-295); Sodium 140 mmol/L (136-145)
[2022-08-17 21:16] LABS: Vancomycin Trough 15.3 ug/mL (10-15)
[2022-08-18] VITALS (109 sets, daily range): BP systolic 86–128; BP diastolic 58–83; PULSE 67–109; RESP 10–22; TEMP 36.8–37.1; O2SAT 90–100
[2022-08-18] MEDS: ipratropium-albuterol 3 mL Neb INHALATION ×4 (02:06→20:06)
[2022-08-18] MEDS: chlorhexidine gluconate 4% Btl 118 mL 1 APPLIC TOPICAL (03:09)
[2022-08-18 04:54] LABS: Basophils % 0.5 %; Eosinophils % 0.2 %; Hematocrit 27.1 % (37.0-47.0); Hemoglobin 8.9 g/dL (11.5-15.3); Lymphocytes # 1.9 10^3/uL (0.8-4.8); Lymphocytes % 22.3 %; Mean Corpuscular HGB Conc 32.8 g/dL (30.0-36.0); Mean Corpuscular Hemoglobin 36.2 pg (28.0-34.0); Mean Corpuscular Volume 110.2 fl (81-99); Mean Platelet Volume 12.2 fL (7.4-10.4); Neutrophils # 4.55 10^3/uL (1.8-7.7); Neutrophils % 54.8 %; Nucleated Red Blood Cells % 0 %; Platelet Count 157 10^3/cmm (130-400); Red Blood Count 2.46 10^6/uL (4.1-5.3); Red Cell Distribution Width 18.5 % (12.1-15.1); White Blood Count 8.3 10^3/uL (4.0-10.0)
[2022-08-18 05:19] LABS: Blood Urea Nitrogen 9 mg/dL (8-23); Calcium 7.9 mg/dL (8.5-10.5); Carbon Dioxide 31 mmol/L (22-29); Chloride 101 mmol/L (98-107); Glomerular Filtration Rate 225.4 mL/min (90-130); Magnesium 1.9 mg/dL (1.7-2.3); Osmolality Calculated 313 mOsm/kg (285-295); Phosphorus 3.7 mg/dL (2.5-4.5); Sodium 141 mmol/L (136-145)
[2022-08-18 05:21] LABS: Slide Review Slide Review Perform
[2022-08-18 05:31] LABS: Anion Gap 12.3 (5-19); Potassium 3.3 mmol/L (3.5-5.1)
[2022-08-18 05:32] LABS: Glucose 507 mg/dL (65-115)
[2022-08-18] MEDS: hydrocortisone 100 mg/2 mL SDV 25 MG IVP ×2 (05:52→17:38)
[2022-08-18] MEDS: levothyroxine 125 mcg Tablet PO (05:52)
[2022-08-18] MEDS: insulin lispro 100 unit/1 mL SUBCUT (06:07)
[2022-08-18] MEDS: budesonide 0.5 mg/2 mL Neb INHALATION ×2 (07:39→20:06)
[2022-08-18] MEDS: pantoprazole 40 mg SDV IVP ×2 (08:12→17:37)
[2022-08-18] MEDS: propofol 1,000 MG/100 ML INJ 5.75 MG IV (08:13)
[2022-08-18] MEDS: ascorbic acid 500 mg Tablet 1000 MG PO ×2 (08:14→17:38)
[2022-08-18] MEDS: BuSPIRONE 10 mg Tablet 30 MG PO ×2 (08:14→17:38)
[2022-08-18] MEDS: zinc gluconate 50 mg Tablet PO (08:14)
[2022-08-18] MEDS: zonisamide 100 MG Capsule 50 MG PO (08:14)
[2022-08-18] MEDS: FUROsemide 10 mg/mL SDV 4mL 40 MG IVP ×2 (08:14→20:20)
[2022-08-18] MEDS: nystatin 100,000 unit/mL UDC 5 mL 100000 UNIT PO ×4 (08:15→20:20)
[2022-08-18] MEDS: dextrose 50% syringe 50 mL IVP (08:15)
[2022-08-18] MEDS: fludrocortisone 0.1 mg Tablet PO (08:15)
[2022-08-18] MEDS: duloxetine 60 mg Capsule PO (08:15)
[2022-08-18] MEDS: potassium chloride oral liq 20 mEq/15 mL UDC 40 MEQ PO (08:29)
[2022-08-18] MEDS: lidocaine 1% 5 ML in potassium chloride premix 100 ML 25 ML IV (08:31)
--- NOTE | 2022-08-18 08:45 | PC.NURSE ---
AM blood glucose was 48. PRN d50 was given and recheck was 116. Dr zimmerman
[2022-08-18 08:48] LABS: Glucose Point of Care 116 mg/dL (70-110)
[2022-08-18 08:48] LABS: Glucose Point of Care 48 mg/dL (70-110)
[2022-08-18 09:06] LABS: ABG PCO2 44.1 mmHg (35-45); ABG PH Result 7.48 (7.35-7.45); Alveolar-Arterial Oxygen Gradi 14.6 mmHg (5-10); Arterial Blood Gas Hematocrit 31.1 % (37-47); Base Excess ABG 8.5 mmol/L (-2.0-2.0); Blood Gas Allen Test Pos; Blood Gas Operator Identificat CAK; Blood Gas Sample Site Radial, left; Blood Gas Sample Type Arterial; Blood Gas Tidal Volume 0.35; Carboxyhemoglobin 0.9 %THgb (0.4-20.1); HCO3 ABG 32.9 mmol/L (22-26); HGB O2 Sat 94.9 % (95-100); Ionized Calcium Level - ABG 1.2 mmol/L (1.1-1.4); Methemoglobin 1.4 % (0.4-1.5); Oxygen Device VENT; Oxygen Saturation ABG 97.2; PO2 ABG 82.7 mmHg (80.0-100.0); Total Hemoglobin 10.1 g/dL (12-16)
--- NOTE | 2022-08-18 09:25 | PM.PN ---
Subjective Subjective: -Patient has seen patient at bedside -Opens eyes and follows commands-appears extremely weak -Yesterday NG was placed to using fluoroscopic guidance, CT abdomen pelvis revealed NG tube entering small bowel. No obvious obstruction in the rest of the colon -We will discontinue TPN and start patient on tube feeding -Currently patient is requiring minimal vent support with good PF ratio on ABG -Continues to make good urine with Lasix 40 every 12 and net -1 L last 24 hours-overall 11 L positive since admission;discontinuing TPN can help with her volume management -Potassium 3.3 and supplemented -Morning CMP showed glucose.-Not sure if blood was drawn from IV line-however repeat glucose was 46 and she received 1 dose dextrose -Other labs and imaging reviewed Medications: Reviewed: Yes Vitals/I&O/Wt Last Vital Signs Temp 98.7 F 08/18/22 04:00 Pulse 80 08/18/22 07:53 Resp 14 08/18/22 07:41 BP 112/78 08/18/22 06:15 Pulse Ox 95 08/18/22 07:41 O2 Del Method 08/18/22 07:39 O2 Flow Rate 70 08/16/22 00:00 FiO2 35 08/18/22 07:41 08/17/22 08/18/22 08/18/22 22:59 06:59 14:59 Intake Total 260 / 2327.575 200 / 2527.575 Output Total 600 / 1400 1750 / 3150 Balance -340 / 927.575 -1550 / -622.425 Physical Exam Narrative: PHYSICAL EXAM: General: lying in bed, sedated and intubated HEENT:NCAT, PERRLA, EOMI Neck: Supple Lungs: Improving breath sounds well Heart: s1/s2, RRR Abd: soft, NT, ND, BS + Normoactive Extremities: 1+ pitting pedal edema bilaterally; 1+ pitting anasarca over abdominal wall SURVEY SUPERINTENDENT: No focal deficits-follows commands prior to intubation. SKIN: Scattered sores and bruises in different stages of healing? LDA: # CVC: Right PICC line 08/15/2022 Urinary Catheter Management: Dodd: Cath Placed During This Visit: yes Reason for Continuing Indwelling Catheter: Accurate Measurement of Urinary Output in Critically Ill Patients Urinary Catheter Date of Insertion: 08/11/22 Urinary Catheter Time of Insertion: 00:20 Data : 08/18/22 03:32 08/18/22 03:32 Other Labs: Radiology Impressions Head CT 08/08/22 13:35 IMPRESSION: 1. No evidence of intracranial hemorrhage or mass effect. 2. Mild small vessel changes. Mild parenchymal volume loss. 3. No acute intracranial findings. Chest/Abdomen/Pelvis CT 08/08/22 14:46 IMPRESSION: 1. Small LEFT greater than RIGHT pleural effusions with compressive atelectasis in the lung bases. 2. A few patchy hazy ground glass infiltrates in both lower lobes and LEFT greater than RIGHT upper lobes likely infectious or inflammatory. No focal pneumonia. 3. Postoperative changes GE junction with moderate to large esophageal hiatal hernia. Fluid distended thoracic esophagus with air-fluid level. Hiatal hernia appears progressed compared to March 30, 2022 some of which may be due to fluid distention. 4. Diffuse fatty infiltration liver. Hepatomegaly. 5. Diffuse body wall anasarca. 6. Small volume pelvic ascites. 7. Air-fluid level in the bladder likely due to recent instrumentation. 8. No evidence of high-grade small or large bowel obstruction. 9. Chronic compression deformities L1 and L4 unchanged since March 30, 2022. 10. Prior gastric bypass, cholecystectomy, hysterectomy. Upper GI Series 08/10/22 13:59 IMPRESSION: 1. Large hiatal hernia and status post gastric bypass. 2. Favor this large hiatal hernia contains food products, bezoar-like material. 3. Liquid contrast did exit this large hernia but there may be a partial outlet obstruction. None of the food products did exit during this examination. KUB X-Ray 08/11/22 12:05 IMPRESSION: 1. Multiple dilated loops of small bowel in the left upper quadrant. There is gas and stool throughout the majority of the colon. This could reflect small-bowel obstruction or ileus. 2. Bibasilar opacities and bilateral pleural effusions, left greater than right. ADDENDUM: 08/11/22 1414 Findings discussed with MARIA E RAMOS at 08/11/2022 2:12 PM CDT. Chest X-Ray 08/17/22 06:00 Impression: 1. Slight decrease in pulmonary opacity compared to yesterday. 2. No change in position of right PICC line and endotracheal tube. Fluoroscopy 08/17/22 11:00 IMPRESSION: Uncomplicated placement of 12 [place] nasogastric tube through the gastric pouch into the jejunal portion of the gastrojejunal anastomosis. Abdomen/Pelvis CT 08/17/22 12:57 IMPRESSION: Complex gastric bypass surgery incompletely defined. There is mild dilatation of small bowel as well as normal caliber small bowel. From the tip of the intubation tube distally there is no obstruction to flow of contrast with opacification of colon and rectum. Laboratory Results WBC 8.3 10^3/uL (4.0-10.0) 08/18/22 03:32 RBC 2.46 10^6/uL (4.1-5.3) L 08/18/22 03:32 Hgb 8.9 g/dL (11.5-15.3) L 08/18/22 03:32 Hct 27.1 % (37.0-47.0) L 08/18/22 03:32 MCV 110.2 fl (81-99) H 08/18/22 03:32 MCH 36.2 pg (28.0-34.0) H 08/18/22 03:32 MCHC 32.8 g/dL (30.0-36.0) 08/18/22 03:32 RDW 18.5 % (12.1-15.1) H 08/18/22 03:32 Plt Count 157 10^3/cmm (130-400) 08/18/22 03:32 MPV 12.2 fL (7.4-10.4) H 08/18/22 03:32 Neut % (Auto) 54.8 % 08/18/22 03:32 Lymph % (Auto) 22.3 % 08/18/22 03:32 [place] % (Auto) 12.0 % 08/18/22 03:32 Eos % (Auto) 0.2 % 08/18/22 03:32 Baso % (Auto) 0.5 % 08/18/22 03:32 Neut # (Auto) 4.55 10^3/uL (1.8-7.7) 08/18/22 03:32 Lymph # (Auto) 1.9 10^3/uL (0.8-4.8) 08/18/22 03:32 [place] # (Auto) 1.0 10^3/uL (0.2-0.9) H 08/18/22 03:32 Eos # (Auto) 0.0 10^3/uL (0.0-0.8) 08/18/22 03:32 Baso # (Auto) 0.0 10^3/uL (0.0-0.1) 08/18/22 03:32 Nucleated RBC % (auto) 0 % 08/18/22 03:32 Total Counted 100 (0-100) 08/16/22 02:19 Atypical Lymphs % 0.0 % (0-5) 08/16/22 02:19 Segmented Neutrophils 63 % 08/16/22 02:19 Band Neutrophils 3.0 % 08/16/22 02:19 Lymphocytes (Manual) 22 % 08/16/22 02:19 Monocytes (Manual) 11.0 % 08/16/22 02:19 Eosinophils (Manual) 0 % 08/16/22 02:19 Basophils (Manual) 0.0 % 08/16/22 02:19 Metamyelocytes 1.0 % 08/16/22 02:19 Nucleated RBCs # 0.0 /100WBC 08/18/22 03:32 Toxic Vacuolation 1+ H 08/16/22 02:19 Platelet Estimate Normal (Normal) 08/16/22 02:19 Polychromasia 1+ H 08/16/22 02:19 Anisocytosis 2+ H 08/16/22 02:19 Macrocytosis 2+ H 08/16/22 02:19 D-Dimer 0.75 ug/mIFEU (0-0.59) H 08/10/22 04:16 Specimen Type Arterial 08/18/22 08:54 Sample Site Radial, left 08/18/22 08:54 ABG pH 7.48 (7.35-7.45) H 08/18/22 08:54 ABG pCO2 44.1 mmHg (35-45) 08/18/22 08:54 ABG pO2 82.7 mmHg (80.0-100.0) 08/18/22 08:54 ABG HCO3 32.9 mmol/L (22-26) H 08/18/22 08:54 ABG O2 Saturation 97.2 08/18/22 08:54 ABG Base Excess 8.5 mmol/L (-2.0-2.0) H 08/18/22 08:54 Oliver Test Pos 08/18/22 08:54 A-a O2 Gradient 14.6 mmHg (5-10) H 08/18/22 08:54 Hematocrit 31.1 % (37-47) L 08/18/22 08:54 Hgb O2 Saturation 94.9 % (95-100) L 08/18/22 08:54 Carboxyhemoglobin 0.9 %THgb (0.4-20.1) 08/18/22 08:54 Methemoglobin 1.4 % (0.4-1.5) 08/18/22 08:54 Total Hemoglobin 10.1 g/dL (12-16) L 08/18/22 08:54 Sodium 144.0 mmol/L (131-143) H 08/18/22 08:54 Potassium 3.0 mmol/L (3.5-5.0) L 08/18/22 08:54 Glucose 100.0 mg/dL (70-115) 08/18/22 08:54 Ionized Calcium 1.2 mmol/L (1.1-1.4) 08/18/22 08:54 O2 Delivery Device Vent 08/18/22 08:54 O2 Liters/Min 55.0 % 08/15/22 13:50 FiO2 35.0 % 08/18/22 08:54 Tidal Volume 0.35 08/18/22 08:54 PEEP 8.0 cmH20 08/18/22 08:54 Aquatic Centre Manager ID Cak 08/18/22 08:54 Sodium 141 mmol/L (136-145) 08/18/22 03:32 Potassium 3.3 mmol/L (3.5-5.1) L 08/18/22 03:32 Chloride 101 mmol/L (98-107) 08/18/22 03:32 Carbon Dioxide 31 mmol/L (22-29) H 08/18/22 03:32 Anion Gap 12.3 (5-19) 08/18/22 03:32 BUN 9 mg/dL (8-23) 08/18/22 03:32 Creatinine 0.3 mg/dL (0.5-0.9) L 08/18/22 03:32 GFR Calculation 225.4 mL/min (90-130) H 08/18/22 03:32 Glucose 507 mg/dL (65-115) H* 08/18/22 03:32 POC Glucose 116 mg/dL (70-110) H 08/18/22 08:45 Estimat Average Glucose 59 08/10/22 04:16 Hemoglobin A1c 3.7 % (4.0-6.0) L 08/10/22 04:16 Calculated Osmolality 313 mOsm/kg (285-295) H 08/18/22 03:32 Lactic Acid 2.6 mmol/L (0.5-2.2) H 08/08/22 20:25 Lactate 1.4 mmol/L (0.5-2.2) 08/09/22 05:05 Calcium 7.9 mg/dL (8.5-10.5) L 08/18/22 03:32 Phosphorus 3.7 mg/dL (2.5-4.5) 08/18/22 03:32 Magnesium 1.9 mg/dL (1.7-2.3) 08/18/22 03:32 Total Bilirubin 0.5 mg/dL (0.15-1.2) 08/17/22 03:08 AST 30 U/L (0-32) 08/17/22 03:08 ALT 12 U/L (0-33) 08/17/22 03:08 Alkaline Phosphatase 132 U/L (35-105) H 08/17/22 03:08 Troponin T Gen 5 ng/L 28 ng/L (0-10) H 08/10/22 04:16 Troponin T Baseline 25 ng/L (0-10) H 08/08/22 13:48 Troponin T 120 Minute 24.05 ng/L (0-10) H 08/08/22 15:33 Delta Troponin T -0.95 ABS# (0-10) L 08/08/22 15:33 Troponin T Hi Sens 6Hr 25.69 ng/L (0-10) H 08/09/22 05:05 Troponin T Hi Sens 6Hr Delta 0.69 ng/L (0-12) 08/09/22 05:05 C-Reactive Protein 9.4 mg/L (0.0-4.9) H 08/08/22 13:48 NT-Pro-B Natriuret Pep 807 pg/mL (0-125) H 08/08/22 13:48 Total Protein 4.4 g/dL (6.6-8.7) L 08/17/22 03:08 Albumin 2.2 g/dL (3.5-5.2) L 08/17/22 03:08 Globulin 2.2 g/dL (1.3-4.6) 08/17/22 03:08 Triglycerides 109 mg/dL (0-150) 08/10/22 04:16 Cholesterol 66 mg/dL (0-200) 08/10/22 04:16 LDL Cholesterol, Calc 34 mg/dL (50-129) L 08/10/22 04:16 Total VLDL Cholesterol 22 mg/dL (0-30) 08/10/22 04:16 HDL Cholesterol 10 mg/dL (60-100) L 08/10/22 04:16 Cholesterol/HDL Ratio 6.60 mg/dL (0.0-4.40) H 08/10/22 04:16 Procalcitonin 2.36 ng/mL (0-0.5) H 08/15/22 21:19 TSH 0.49 uIU/mL (0.27-4.20) 08/08/22 13:48 Random Cortisol 25.42 ug/dL (2.47-19.5) H 08/11/22 03:45 Urine Color Yellow (Yellow) 08/08/22 17:23 Urine Appearance Hazy (CLEAR) A 08/08/22 17:23 Urine pH 6 (5-7) 08/08/22 17:23 Ur Specific [place] 1.000 (1.005-1.030) L 08/08/22 17:23 Urine Protein Neg (Negative) 08/08/22 17:23 Urine Glucose (UA) Norm (Normal) 08/08/22 17:23 Urine Ketones Negative (Negative) 08/08/22 17:23 Urine Blood Neg (Negative) 08/08/22 17:23 Urine Nitrate Negative (Negative) 08/08/22 17:23 Urine Bilirubin Neg (Negative) 08/08/22 17:23 Urine Urobilinogen 1 mg/dL (Negative) H 08/08/22 17:23 Ur Leukocyte Esterase 1+ (Negative) H 08/08/22 17:23 Urine RBC 0-4 /hpf (0-2) H 08/08/22 17:23 Urine WBC 5-10 /hpf (0-5) H 08/08/22 17:23 Ur Squamous Epith Cells 0-4 /hpf (0-5) H 08/08/22 17:23 Amorphous Sediment Not Reportable 08/08/22 17:23 Urine Bacteria 4+ /hpf (NONE) H 08/08/22 17:23 RSV Nasal Swab Not detected (Not Detected) 08/08/22 17:27 RSV Nasal Swab Int Cntl Not detected (Not Detected) 08/08/22 17:27 Bronch Specimen Source Right lower lobe 08/16/22 12:10 Bronchial Fluid Color Colorless 08/16/22 12:10 Bronchial Fluid Appearance Clear (CLEAR) 08/16/22 12:10 Bronchial Fluid WBC 940 /uL 08/16/22 12:10 Bronchial Fluid RBC 1 10^3/uL 08/16/22 12:10 Bronch Cells Counted 200 08/16/22 12:10 Bronchial Neutrophils 178.00 % (0.9-2.3) H 08/16/22 12:10 Bronchial Lymphocytes 20.00 % (10.71-12.91) H 08/16/22 12:10 Bronchial Diff Comment Yes 08/16/22 12:10 Vancomycin Trough 15.3 ug/mL (10-15) H 08/17/22 20:48 Adenovirus (PCR) Not detected (Not Detected) 08/08/22 17:27 Coronavirus 229E (PCR) Not detected (NOT DETECT) 08/14/22 09:06 Human Metapneumovir PCR Not detected (Not Detected) 08/08/22 17:27 Influenza A (RT-PCR) Not detected (Not Detected) 08/08/22 17:27 Influenza A (H1) PCR Not detected (Not Detected) 08/08/22 17:27 Influenza A (H3) PCR Not detected (Not Detected) 08/08/22 17:27 Influenza B (RT-PCR) Not detected (Not Detected) 08/08/22 17:27 Parainfluenzae Type 1 Not detected (Not Detected) 08/08/22 17:27 Parainfluenzae Type 2 Not detected (Not Detected) 08/08/22 17:27 Parainfluenzae Type 3 Not detected (Not Detected) 08/08/22 17:27 RSV Ab Comment see note 08/08/22 17:27 Rhinovirus (PCR) Not detected (Not Detected) 08/08/22 17:27 SARS-CoV-2 (PCR) Not detected (NOT DETECT) 08/14/22 09:06 SARS-CoV-2 Ag (Rapid) Negative (Negative) 08/08/22 20:47 Blood Type A Positive 08/12/22 09:10 Rho(D) Type Positive 08/12/22 09:10 Antibody Screen Negative 08/12/22 09:10 Crossmatch See Detail 08/12/22 09:10 Micro: Microbiology 08/16/22 Unknown MRSA Culture - Final Nose 08/16/22 12:10 Gram Stain - Final Lung Right Lower Lobe A&P Assessment and plan (1) Respiratory failure with hypoxia: Status: Acute (2) ARDS (adult respiratory distress syndrome): Status: Acute (3) Aspiration pneumonia: Status: Acute (4) Gastric bezoar: Status: Acute (5) Severe protein-energy malnutrition: Status: Acute (6) Hx of gastric bypass: Status: Acute (7) Nausea and vomiting: Status: Acute (8) Hypoalbuminemia: Status: Chronic (9) Esophageal hiatal hernia: Status: Chronic (10) Grade I diastolic dysfunction: Status: Chronic (11) Hypothyroidism: Status: Chronic Qualifiers: Hypothyroidism type: acquired Qualified Code(s): E03.9 - Hypothyroidism, unspecified (12) UTI due to Klebsiella species: Status: Acute Plan #acute hypoxic respiratory failure secondary to ARDS secondary to aspiration pneumonia/fluid overload #Patient has history of grade 1 diastolic dysfunction-currently +12 L since admission #Hypokalemia -2.4; supplemented today morning #Fever spikes with elevated procal - suspect pneumonia not responding to zosyn -Initially intubated due to aspiration on 08/10/2022-extubated on 08/14/2022 -reintubated 08/16/22 for increasing requirements on high flow nasal cannula - abg 7.4 8/44/82/32/97% currently on SIMV 350/12/8/35%-we will try PSV today for some time and later SIMV -Patient is very deconditioned and still clinically congested-I have stopped TPN today and we will diurese her more and measure NIF -Currently sedated with fentanyl 25 and propofol 30-we will target RASS -2; can taper down propofol further and start on precedex for anxiety -Target MAP 65-Levophed if needed -Currently on Zosyn for aspiration pneumonia as well as UTI 08/08/2022 positive for E. coli as well as Klebsiella; procalcitonin - 2.65 & fever spikes; discontinued Zosyn and started pt on vancomycin and imipenam; s/p bronchoscopy 08/16/2022 and BAL from [facility]-final cultures pending; MRSA nares negative -clinically congested and overall net +ve 11 we will L since admsision; patient was on TPN and it adds more volume; today we will discontinue TPN and start NG feeding and it will help with her volume status -Renal functions are good-we will continue Lasix 40 Mg twice daily and try to keep net negative fluid balance -Hypokalemia 3.8-[id number] monitor -Monitor renal function/electrolytes/input output -We will continue to support her respiration using PSV/SIMV mode -pt has some end expiratory wheeze - we will continue duoneb nebulizations as scheduled -We will plan to extubate next 24 to 48 hours #History of gastric bypass in 2001 #Patient presented with nausea vomiting-with suspected food impaction and large esophageal hiatal hernia which was pushed through EGD on 08/11/2022 #CT abdomen pelvis 08/17/2022-no evidence of obvious obstruction, complex gastric bypass surgery incompletely defined, NGT placed in jejunum -Patient follows up with the surgeon as outpatient-and underwent an endoscopy July 27, 2022-recommended to take small meals-apparently patient is noncompliant -A PICC line has been placed and patient received TPN for nutrition; yesterday NG tube was placed under fluoroscopic guidance and the tip is in duodenum-we will start tube feeding today -It is imperative that if she is noncompliant with her small frequent meals-she is at risk of recurrent aspiration leading to respiratory failure on multiple hospital admissions-so we will obtain general surgery consult when available for gastrostomy/PEG tube placement-once she is more stable respiratory hilliard ICU CHECKLIST: Problem list updated Verbal orders reviewed and signed Analgesia: Fentanyl Glycemic Control: N/A Nutrition: NG feeding Restraint Renewal (within 24 hrs): yes Ulcer Prophylaxis: PPI Chemical Thromboprophylaxis: Prophylaxis: Lovenox Mechanical Thromboprophylaxis: SCD Need for Central line: PICC line for TPN/pressure Need for Dodd catheter: urine output monitoring Critical Care Time (No Overlap): 45 min This patient has a high probability of sudden, clinically significant deterioration, which requires the highest level of physician preparedness to intervene urgently. I managed/supervised life or organ supporting interventions that required frequent physician assessment. I devoted my full attention in the ICU to the direct care of this patient for the period of time indicated above. Time I spent with family or surrogate(s) is included only if the patient was incapable of providing necessary information or participating in decision making. Time devoted to teaching and to any procedures I billed separately is not included. Services Provided: Telemetry review Mechanical Ventilation Hemodynamic interpretation, assessment and management Review and interpretation of CXR Review and interpretation of lab values Review and interpretation of microbiologic data and culture results Review of medications and administration Review and interpretation of Nutrition requirements and management Discussion of management with other consultants and services Clinical update to family members Attestations Medical Necessity Statement*: still intubated requiring mechanical ventilation Time Spent in Patient Care: Greater than 35 minutes (>than 50% of time spent in counselling and/or direct pt care on unit). Critical Care Time: The high probability of a clinically significant, sudden or life threatening deterioration of the patient's [Pulmonary, GI, Infectious] system(s) required my full and direct attention, intervention and personal management. The critical care time is as shown. 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
--- NOTE | 2022-08-18 10:14 | P.PN_ITS ---
Subjective Subjective: Intubated. Somewhat awake. Sedation being weaned off Patient opened her eyes, squeezed my hand and looked towards me. She also somewhat nodded her head. Overnight patient's blood sugar was 500, pt was given 16 units of lispro. Subsequently BG was 48. Pt was given D50 amp by nurse. Follow up glucose was ok. Pt appears more edematous today Pt had a BM today. Vitals/I&O/Wt Last Vital Signs Temp 98.6 F 08/18/22 07:00 Pulse 105 H 08/18/22 09:45 Resp 13 08/18/22 09:44 BP 111/74 08/18/22 09:45 Pulse Ox 98 08/18/22 09:45 O2 Del Method 08/18/22 07:39 O2 Flow Rate 70 08/16/22 00:00 FiO2 35 08/18/22 09:44 08/17/22 08/18/22 08/18/22 22:59 06:59 14:59 Intake Total 260 / 2327.575 200 / 2527.575 50 / 50 Output Total 600 / 1400 1750 / 3150 Balance -340 / 927.575 -1550 / -622.425 50 / 50 Physical Exam Narrative: PHYSICAL EXAM: General: lying in bed, sedated and intubated HEENT:NCAT, PERRLA, EOMI Neck: Supple Lungs: Improving breath sounds well Heart: s1/s2, RRR Abd: soft, NT, ND, BS + Normoactive Extremities: 1+ pitting pedal edema bilaterally; 1+ pitting anasarca over abdominal wall, 2+ pitting edema b/l upper extremities 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 SKIN: Scattered sores and bruises in different stages of healing? LDA: # CVC: Right PICC line 08/15/2022 Urinary Catheter Management: Dodd: Cath Placed During This Visit: yes Reason for Continuing Indwelling Catheter: Accurate Measurement of Urinary Output in Critically Ill Patients Urinary Catheter Date of Insertion: 08/11/22 Urinary Catheter Time of Insertion: 00:20 Data : 08/18/22 03:32 08/18/22 03:32 Micro: Microbiology 08/16/22 Unknown MRSA Culture - Final Nose 08/16/22 12:10 Gram Stain - Final Lung Right Lower Lobe A&P Assessment and plan (1) Gastric bezoar: Status: Acute (2) Hx of gastric bypass: Status: Acute (3) Severe protein-energy malnutrition: Status: Acute (4) Aspiration pneumonia: Status: Acute (5) Hypernatremia: Status: Acute (6) Respiratory failure with hypoxia: Status: Acute (7) Orthostatic hypotension: Status: Chronic (8) Major depression, recurrent, full remission: Status: Chronic (9) Nausea and vomiting: Status: Acute (10) Post-traumatic stress disorder, chronic: Status: Chronic (11) Generalized anxiety disorder: Status: Chronic (12) Borderline personality disorder: Status: Chronic (13) Minor neurocognitive disorder: Status: Chronic (14) Encounter for long-term opiate analgesic use: Status: Chronic (15) Chronic lumbar radiculopathy: Status: Chronic (16) Status post gastric bypass for obesity: Status: Chronic (17) Frequent falls: Status: Acute (18) Hypoalbuminemia: Status: Chronic (19) Pneumonia: Status: Acute Qualifiers: Pneumonia type: aspiration pneumonia (20) Chronic migraine: Status: Chronic (21) Hypothyroidism: Status: Chronic Qualifiers: Hypothyroidism type: acquired Qualified Code(s): E03.9 - Hypothyroidism, unspecified (22) Grade I diastolic dysfunction: Status: Chronic (23) Esophageal hiatal hernia: Status: Chronic (24) Macrocytic anemia: Status: Chronic (25) DDD (degenerative disc disease), lumbar: Status: Chronic (26) UTI due to Klebsiella species: Status: Acute (27) ARDS (adult respiratory distress syndrome): Status: Acute (28) Fever: Status: Acute Plan #Acute respiratory failure with hypoxia #Vent dependent respiratory failure #Aspiration pneumonia #Nausea, vomiting #Pseudo gastric outlet obstruction #Hypernatremia #Status post gastric bypass surgery for obesity #Grade 1 diastolic dysfunction with generalized anasarca #Severe protein calorie malnutrition #Orthostatic hypotension #Hypothyroidism #Macrocytic anemia chronic #Chronic esophageal hiatal hernia #Gastric bezoar --Initially intubated due to aspiration on 08/10/2022-extubated on 08/14/2022 -Reintubated 08/15/2022 -Continue to diurese patient. Lasix 40 IV twice daily -Continue fentanyl and propofol ? Continue vancomycin and imipenem ? MRSA nares negative. BCx negative to date. repeat Bcx 08/24 also NTD. - BAL report pending. ? Initially had UTI on 08/08/2022 for E. coli and Klebsiella. ? Precedex stop on 08/15/2022 ? Restart fludracortisone and midodrine. ? NG tube that was initially placed was pulled out somehow on 08/13/2022. - NG tube placed under flouro guidance 08/17/2022. - CT Abd pelvis with oral contrast did not show any evidence of bowel obstruction. - Will stop TPN to avoid extra fluid administration. - Start Tube feeds with Jevity.? 10 cc/h will be increased 5 cc every 6 hours with target of 30 cc/h.? Free water flushes 250 cc every 6 hours ? Long-term due to repeated risk of aspiration secondary to patient's esophageal hernia and generalized deconditioning and critical care polyneuropathy patient may need to have PEG/gastrostomy tube placement with a potential tracheostomy if they are unable to extubate her. ? Continue to wean down oxygen with goal of extubating patient once patient is more euvolemic and oxygen requirements come down -Pulmonology consulted, recommendations appreciated ? We will replete potassium ? Continue nebulization steroids Pulmicort -Psych consulted for patient's paranoia. Consult note pending. DVT prophylaxis: Lovenox subc 40 daily Attestations Medical Necessity Statement*: Critically ill in ICU Coding Level of Care Code Acute Events [employer] Consultant for Chg Fwd Diagnoses Gastric bezoar T18.2XXA Hx of gastric bypass Z98.84 Severe protein-energy malnutrition E43 Aspiration pneumonia J69.0 Hypernatremia E87.0 Respiratory failure with hypoxia J96.91 Orthostatic hypotension I95.1 Major depression, recurrent, full remission F33.42 Nausea and vomiting R11.2 Post-traumatic stress disorder, chronic F43.12 Generalized anxiety disorder F41.1 Borderline personality disorder F60.3 Minor neurocognitive disorder G31.84 Encounter for long-term opiate analgesic use Z79.891 Chronic lumbar radiculopathy M54.16 Status post gastric bypass for obesity Z98.84 Frequent falls R29.6 Hypoalbuminemia E88.09 Pneumonia J18.9 Pneumonia type: aspiration pneumonia Chronic migraine Hypothyroidism E03.9 Hypothyroidism type: acquired Grade I diastolic dysfunction I51.89 Esophageal hiatal hernia K44.9 Macrocytic anemia D53.9 DDD (degenerative disc disease), lumbar M51.36 UTI due to Klebsiella species N39.0; B96.89 ARDS (adult respiratory distress syndrome) J80 Fever R50.9
[2022-08-18 11:36] LABS: Glucose Point of Care 83 mg/dL (70-110)
[2022-08-18] MEDS: midodrine 5 mg TABLET 10 MG PO ×2 (13:02→17:38)
[2022-08-18] MEDS: sucralfate 1 gm/10 mL Oral Liq UDC PO ×2 (13:03→17:39)
--- NOTE | 2022-08-18 16:35 | PC.NUTR ---
Consult for TF recommendations received. Recommend Jevity 1.2 to start @ 15 mls, and increase 10 mls Q8H as tolerated until goal rate of 35 mls/hr is reached with flushes of 80 mls Q4H or per MD discretion. Details in RD assessment.
[2022-08-18 16:56] LABS: Glucose Point of Care 75 mg/dL (70-110)
[2022-08-18 19:57] LABS: Glucose Point of Care 90 mg/dL (70-110)
[2022-08-18] MEDS: enoxaparin 40 mg/0.4 mL Syringe SUBCUT (21:40)
[2022-08-19] VITALS (61 sets, daily range): BP systolic 80–113; BP diastolic 56–78; PULSE 72–104; RESP 10–16; TEMP 36.7–37.1; O2SAT 92–100
[2022-08-19] MEDS: chlorhexidine gluconate 4% Btl 118 mL 1 APPLIC TOPICAL (01:14)
[2022-08-19] MEDS: ipratropium-albuterol 3 mL Neb INHALATION ×4 (02:55→19:56)
[2022-08-19] MEDS: midodrine 5 mg TABLET 10 MG PO ×3 (05:13→17:21)
[2022-08-19] MEDS: hydrocortisone 100 mg/2 mL SDV 25 MG IVP (05:13)
[2022-08-19] MEDS: levothyroxine 125 mcg Tablet PO (05:13)
[2022-08-19] MEDS: pantoprazole 40 mg SDV IVP ×2 (05:14→17:21)
[2022-08-19 05:18] LABS: Hematocrit 28.8 % (37.0-47.0); Hemoglobin 9.1 g/dL (11.5-15.3); Mean Corpuscular HGB Conc 31.6 g/dL (30.0-36.0); Mean Corpuscular Hemoglobin 34.2 pg (28.0-34.0); Mean Corpuscular Volume 108.3 fl (81-99); Platelet Count 222 10^3/cmm (130-400); Red Blood Count 2.66 10^6/uL (4.1-5.3); White Blood Count 10.1 10^3/uL (4.0-10.0)
[2022-08-19 05:47] LABS: Anion Gap 10.4 (5-19); Blood Urea Nitrogen 10 mg/dL (8-23); Calcium 8.2 mg/dL (8.5-10.5); Carbon Dioxide 37 mmol/L (22-29); Chloride 103 mmol/L (98-107); Glomerular Filtration Rate 359.9 mL/min (90-130); Glucose 85 mg/dL (65-115); Magnesium 1.8 mg/dL (1.7-2.3); Osmolality Calculated 304 mOsm/kg (285-295); Phosphorus 2.6 mg/dL (2.5-4.5); Sodium 148 mmol/L (136-145)
[2022-08-19 06:10] LABS: Potassium 2.4 mmol/L (3.5-5.1)
[2022-08-19 06:18] LABS: Absolute Segmented Neutrophil 5.9 10/cmm (1.6-7.1); Band Neutrophils Absolute 0.5 10^3/cmm (0.0-1.2); Eosinophils 0 %; Lymphocytes 28 %; Lymphocytes Absolute 2.8 10^3/cmm (1.2-3.4); Monocytes Absolute 0.7 10^3/cmm (0.1-0.6); Segmented Neutrophils 58 %; Total Cells Counted 100 (0-100)
[2022-08-19 06:19] LABS: Absolute Neutrophil 6.4 10^3/cmm (1.4-6.5); Macrocytosis 1+; Platelet Estimate Normal (Normal)
[2022-08-19] MEDS: lidocaine 1% 5 ML in potassium chloride premix 100 ML 25 ML IV (06:39)
--- NOTE | 2022-08-19 07:08 | PC.NURSE ---
beside report received from Junior HANLEY
--- NOTE | 2022-08-19 07:40 | PC.SOCIAL ---
IMM Update pg 2 of IMM not updated. Patient is intubated and not anticipating DC in the next 24-48 hours.
[2022-08-19] MEDS: budesonide 0.5 mg/2 mL Neb INHALATION ×2 (08:00→19:57)
[2022-08-19 08:10] LABS: Glucose Point of Care 93 mg/dL (70-110)
[2022-08-19] MEDS: ascorbic acid 500 mg Tablet 1000 MG PO ×2 (08:20→17:21)
[2022-08-19] MEDS: zonisamide 100 MG Capsule 50 MG PO (08:20)
[2022-08-19] MEDS: fludrocortisone 0.1 mg Tablet PO (08:20)
[2022-08-19] MEDS: BuSPIRONE 10 mg Tablet 30 MG PO ×2 (08:20→17:21)
[2022-08-19] MEDS: FUROsemide 10 mg/mL SDV 4mL 40 MG IVP (08:21)
[2022-08-19] MEDS: zinc gluconate 50 mg Tablet PO (08:21)
[2022-08-19] MEDS: nystatin 100,000 unit/mL UDC 5 mL 100000 UNIT PO ×4 (08:21→20:00)
[2022-08-19] MEDS: duloxetine 60 mg Capsule PO (08:21)
[2022-08-19] MEDS: potassium chloride oral liq 20 mEq/15 mL UDC 40 MEQ PO ×2 (08:23→17:21)
--- NOTE | 2022-08-19 08:26 | XRR_ITS ---
PROCEDURE INFORMATION: Exam: XR Chest Exam date and time: 08/19/2022 1:38 PM Age: 62 years old Clinical indication: Device placement; Ett placement (vent status); Additional info: Pneumonia TECHNIQUE: Imaging protocol: Radiologic exam of the chest. Views: 1 view. COMPARISON: CR XR chest 1V portable [id number] 08/17/2022 4:43 AM FINDINGS: Tubes, catheters and devices: Endotracheal tube is in satisfactory position. Feeding tube is in satisfactory position. Right sided PICC is in satisfactory position, with distal tip in the SVC, approximately 3 cm above the SVC/RA junction. An implantable loop recording device is seen projecting over the left chest. Surgical clips project over the upper abdomen. Lungs: There is redistribution and indistinctness of the pulmonary vasculature, in association with haziness of the lungs and small bilateral pleural effusions, which in the setting of cardiomegaly is consistent with pulmonary edema. Pneumonia should be excluded clinically. No pneumothorax. Pleural spaces: See Lungs finding. Heart/Mediastinum: Stable cardiomediastinal silhouette. Bones/joints: Degenerative changes of the spine seen. Surgical changes of the left shoulder noted. XR/XR chest 1V portable [id number] IMPRESSION: Imaging findings of pulmonary edema with small bilateral pleural effusions. Pneumonia should be excluded clinically.
--- NOTE | 2022-08-19 09:11 | PM.PN ---
Subjective Subjective: -Patient seen at bedside today -Awake and following commands -Off sedation off pressors -Tolerating SIMV rate to 10-will try PSV-NIF -22 -Had diarrhea yesterday-possibly from tube feeding -Net -2.3 L over 24 hours-overall net negative -9 L; clinically appears less congested -Labs reveal potassium 2.4-received IV and p.o. supplementation-we will closely monitor -Continue with weaning trials Medications: Reviewed: Yes Vitals/I&O/Wt Last Vital Signs Temp 98.1 F 08/19/22 04:00 Pulse 90 08/19/22 08:00 Resp 14 08/19/22 08:12 BP 108/75 08/19/22 08:00 Pulse Ox 95 08/19/22 08:12 O2 Del Method 08/19/22 08:00 O2 Flow Rate 70 08/16/22 00:00 FiO2 25 08/19/22 08:12 08/18/22 08/19/22 08/19/22 22:59 06:59 14:59 Intake Total 336.713 / 865.880 259 / 1124.880 250 / 250 Output Total 1450 / 3050 700 / 3750 Balance -1113.287 / -2184.120 -441 / -2625.120 250 / 250 Physical Exam Narrative: PHYSICAL EXAM: General: lying in bed, sedated and intubated HEENT:NCAT, PERRLA, EOMI Neck: Supple Lungs: Improving breath sounds well Heart: s1/s2, RRR Abd: soft, NT, ND, BS + Normoactive Extremities: No obvious pedal edema bilaterally; improving anasarca over abdominal wall ANNEALING FURNACE TENDER: No focal deficits-follows commands prior to intubation. SKIN: Scattered sores and bruises in different stages of healing? LDA: # CVC: Right PICC line 08/15/2022 Urinary Catheter Management: Dodd: Cath Placed During This Visit: yes Reason for Continuing Indwelling Catheter: Accurate Measurement of Urinary Output in Critically Ill Patients Urinary Catheter Date of Insertion: 08/11/22 Urinary Catheter Time of Insertion: 00:20 Data : 08/19/22 04:44 08/19/22 04:44 Other Labs: Radiology Impressions Head CT 08/08/22 13:35 IMPRESSION: 1. No evidence of intracranial hemorrhage or mass effect. 2. Mild small vessel changes. Mild parenchymal volume loss. 3. No acute intracranial findings. Chest/Abdomen/Pelvis CT 08/08/22 14:46 IMPRESSION: 1. Small LEFT greater than RIGHT pleural effusions with compressive atelectasis in the lung bases. 2. A few patchy hazy ground glass infiltrates in both lower lobes and LEFT greater than RIGHT upper lobes likely infectious or inflammatory. No focal pneumonia. 3. Postoperative changes GE junction with moderate to large esophageal hiatal hernia. Fluid distended thoracic esophagus with air-fluid level. Hiatal hernia appears progressed compared to March 30, 2022 some of which may be due to fluid distention. 4. Diffuse fatty infiltration liver. Hepatomegaly. 5. Diffuse body wall anasarca. 6. Small volume pelvic ascites. 7. Air-fluid level in the bladder likely due to recent instrumentation. 8. No evidence of high-grade small or large bowel obstruction. 9. Chronic compression deformities L1 and L4 unchanged since March 30, 2022. 10. Prior gastric bypass, cholecystectomy, hysterectomy. Upper GI Series 08/10/22 13:59 IMPRESSION: 1. Large hiatal hernia and status post gastric bypass. 2. Favor this large hiatal hernia contains food products, bezoar-like material. 3. Liquid contrast did exit this large hernia but there may be a partial outlet obstruction. None of the food products did exit during this examination. KUB X-Ray 08/11/22 12:05 IMPRESSION: 1. Multiple dilated loops of small bowel in the left upper quadrant. There is gas and stool throughout the majority of the colon. This could reflect small-bowel obstruction or ileus. 2. Bibasilar opacities and bilateral pleural effusions, left greater than right. ADDENDUM: 08/11/22 1414 Findings discussed with MARIA E RAMOS at 08/11/2022 2:12 PM CDT. Chest X-Ray 08/17/22 06:00 Impression: 1. Slight decrease in pulmonary opacity compared to yesterday. 2. No change in position of right PICC line and endotracheal tube. Fluoroscopy 08/17/22 11:00 IMPRESSION: Uncomplicated placement of 12 Wallisian nasogastric tube through the gastric pouch into the jejunal portion of the gastrojejunal anastomosis. Abdomen/Pelvis CT 08/17/22 12:57 IMPRESSION: Complex gastric bypass surgery incompletely defined. There is mild dilatation of small bowel as well as normal caliber small bowel. From the tip of the intubation tube distally there is no obstruction to flow of contrast with opacification of colon and rectum. Laboratory Results WBC 10.1 10^3/uL (4.0-10.0) H 08/19/22 04:44 RBC 2.66 10^6/uL (4.1-5.3) L 08/19/22 04:44 Hgb 9.1 g/dL (11.5-15.3) L 08/19/22 04:44 Hct 28.8 % (37.0-47.0) L 08/19/22 04:44 MCV 108.3 fl (81-99) H 08/19/22 04:44 MCH 34.2 pg (28.0-34.0) H 08/19/22 04:44 MCHC 31.6 g/dL (30.0-36.0) 08/19/22 04:44 RDW 18.0 % (12.1-15.1) H 08/19/22 04:44 Plt Count 222 10^3/cmm (130-400) D 08/19/22 04:44 MPV 12.0 fL (7.4-10.4) H 08/19/22 04:44 Neut % (Auto) 54.8 % 08/18/22 03:32 Lymph % (Auto) Not Reportable 08/19/22 04:44 Wilson % (Auto) Not Reportable 08/19/22 04:44 Eos % (Auto) 0.2 % 08/18/22 03:32 Baso % (Auto) 0.5 % 08/18/22 03:32 Neut # (Auto) 4.55 10^3/uL (1.8-7.7) 08/18/22 03:32 Lymph # (Auto) Not Reportable 08/19/22 04:44 Wilson # (Auto) Not Reportable 08/19/22 04:44 Eos # (Auto) 0.0 10^3/uL (0.0-0.8) 08/18/22 03:32 Baso # (Auto) 0.0 10^3/uL (0.0-0.1) 08/18/22 03:32 Nucleated RBC % (auto) 0 % 08/18/22 03:32 Total Counted 100 (0-100) 08/19/22 04:44 Atypical Lymphs % 0.0 % (0-5) 08/19/22 04:44 Absolute Neutrophils 6.4 10^3/cmm (1.4-6.5) 08/19/22 04:44 Segmented Neutrophils 58 % 08/19/22 04:44 Abs Segm Neuts (Man) 5.9 10/cmm (1.6-7.1) 08/19/22 04:44 Band Neutrophils 5.0 % 08/19/22 04:44 Abs Band Neuts (Man) 0.5 10^3/cmm (0.0-1.2) 08/19/22 04:44 Absolute Lymphocytes 2.8 10^3/cmm (1.2-3.4) 08/19/22 04:44 Lymphocytes (Manual) 28 % 08/19/22 04:44 Monocytes (Manual) 7.0 % 08/19/22 04:44 Absolute Monocytes 0.7 10^3/cmm (0.1-0.6) H 08/19/22 04:44 Eosinophils (Manual) 0 % 08/19/22 04:44 Absolute Eosinophils 0.0 10^3/cmm (0.0-0.7) 08/19/22 04:44 Basophils (Manual) 0.0 % 08/19/22 04:44 Absolute Basophils 0.0 10^3/cmm (0.0-0.2) 08/19/22 04:44 Metamyelocytes 2.0 % 08/19/22 04:44 Nucleated RBCs # 0.0 /100WBC 08/18/22 03:32 Toxic Vacuolation 1+ H 08/16/22 02:19 Platelet Estimate Normal (Normal) 08/19/22 04:44 Polychromasia 1+ H 08/16/22 02:19 Anisocytosis 2+ H 08/16/22 02:19 Macrocytosis 1+ H 08/19/22 04:44 D-Dimer 0.75 ug/mIFEU (0-0.59) H 08/10/22 04:16 Specimen Type Arterial 08/18/22 08:54 Sample Site Radial, left 08/18/22 08:54 ABG pH 7.48 (7.35-7.45) H 08/18/22 08:54 ABG pCO2 44.1 mmHg (35-45) 08/18/22 08:54 ABG pO2 82.7 mmHg (80.0-100.0) 08/18/22 08:54 ABG HCO3 32.9 mmol/L (22-26) H 08/18/22 08:54 ABG O2 Saturation 97.2 08/18/22 08:54 ABG Base Excess 8.5 mmol/L (-2.0-2.0) H 08/18/22 08:54 Oliver Test Pos 08/18/22 08:54 A-a O2 Gradient 14.6 mmHg (5-10) H 08/18/22 08:54 Hematocrit 31.1 % (37-47) L 08/18/22 08:54 Hgb O2 Saturation 94.9 % (95-100) L 08/18/22 08:54 Carboxyhemoglobin 0.9 %THgb (0.4-20.1) 08/18/22 08:54 Methemoglobin 1.4 % (0.4-1.5) 08/18/22 08:54 Total Hemoglobin 10.1 g/dL (12-16) L 08/18/22 08:54 Sodium 144.0 mmol/L (131-143) H 08/18/22 08:54 Potassium 3.0 mmol/L (3.5-5.0) L 08/18/22 08:54 Glucose 100.0 mg/dL (70-115) 08/18/22 08:54 Ionized Calcium 1.2 mmol/L (1.1-1.4) 08/18/22 08:54 O2 Delivery Device Vent 08/18/22 08:54 O2 Liters/Min 55.0 % 08/15/22 13:50 FiO2 35.0 % 08/18/22 08:54 Tidal Volume 0.35 08/18/22 08:54 PEEP 8.0 cmH20 08/18/22 08:54 Instructional Assistant ID Cak 08/18/22 08:54 Sodium 148 mmol/L (136-145) H 08/19/22 04:44 Potassium 2.4 mmol/L (3.5-5.1) L* 08/19/22 04:44 Chloride 103 mmol/L (98-107) 08/19/22 04:44 Carbon Dioxide 37 mmol/L (22-29) H 08/19/22 04:44 Anion Gap 10.4 (5-19) 08/19/22 04:44 BUN 10 mg/dL (8-23) 08/19/22 04:44 Creatinine 0.2 mg/dL (0.5-0.9) L 08/19/22 04:44 GFR Calculation 359.9 mL/min (90-130) H 08/19/22 04:44 Glucose 85 mg/dL (65-115) 08/19/22 04:44 POC Glucose 93 mg/dL (70-110) 08/19/22 08:03 Estimat Average Glucose 59 08/10/22 04:16 Hemoglobin A1c 3.7 % (4.0-6.0) L 08/10/22 04:16 Calculated Osmolality 304 mOsm/kg (285-295) H 08/19/22 04:44 Lactic Acid 2.6 mmol/L (0.5-2.2) H 08/08/22 20:25 Lactate 1.4 mmol/L (0.5-2.2) 08/09/22 05:05 Calcium 8.2 mg/dL (8.5-10.5) L 08/19/22 04:44 Phosphorus 2.6 mg/dL (2.5-4.5) 08/19/22 04:44 Magnesium 1.8 mg/dL (1.7-2.3) 08/19/22 04:44 Total Bilirubin 0.5 mg/dL (0.15-1.2) 08/17/22 03:08 AST 30 U/L (0-32) 08/17/22 03:08 ALT 12 U/L (0-33) 08/17/22 03:08 Alkaline Phosphatase 132 U/L (35-105) H 08/17/22 03:08 Troponin T Gen 5 ng/L 28 ng/L (0-10) H 08/10/22 04:16 Troponin T Baseline 25 ng/L (0-10) H 08/08/22 13:48 Troponin T 120 Minute 24.05 ng/L (0-10) H 08/08/22 15:33 Delta Troponin T -0.95 ABS# (0-10) L 08/08/22 15:33 Troponin T Hi Sens 6Hr 25.69 ng/L (0-10) H 08/09/22 05:05 Troponin T Hi Sens 6Hr Delta 0.69 ng/L (0-12) 08/09/22 05:05 C-Reactive Protein 9.4 mg/L (0.0-4.9) H 08/08/22 13:48 NT-Pro-B Natriuret Pep 807 pg/mL (0-125) H 08/08/22 13:48 Total Protein 4.4 g/dL (6.6-8.7) L 08/17/22 03:08 Albumin 2.2 g/dL (3.5-5.2) L 08/17/22 03:08 Globulin 2.2 g/dL (1.3-4.6) 08/17/22 03:08 Triglycerides 109 mg/dL (0-150) 08/10/22 04:16 Cholesterol 66 mg/dL (0-200) 08/10/22 04:16 LDL Cholesterol, Calc 34 mg/dL (50-129) L 08/10/22 04:16 Total VLDL Cholesterol 22 mg/dL (0-30) 08/10/22 04:16 HDL Cholesterol 10 mg/dL (60-100) L 08/10/22 04:16 Cholesterol/HDL Ratio 6.60 mg/dL (0.0-4.40) H 08/10/22 04:16 Procalcitonin 2.36 ng/mL (0-0.5) H 08/15/22 21:19 TSH 0.49 uIU/mL (0.27-4.20) 08/08/22 13:48 Random Cortisol 25.42 ug/dL (2.47-19.5) H 08/11/22 03:45 Urine Color Yellow (Yellow) 08/08/22 17:23 Urine Appearance Hazy (CLEAR) A 08/08/22 17:23 Urine pH 6 (5-7) 08/08/22 17:23 Ur Specific Nikolai 1.000 (1.005-1.030) L 08/08/22 17:23 Urine Protein Neg (Negative) 08/08/22 17:23 Urine Glucose (UA) Norm (Normal) 08/08/22 17:23 Urine Ketones Negative (Negative) 08/08/22 17:23 Urine Blood Neg (Negative) 08/08/22 17:23 Urine Nitrate Negative (Negative) 08/08/22 17:23 Urine Bilirubin Neg (Negative) 08/08/22 17:23 Urine Urobilinogen 1 mg/dL (Negative) H 08/08/22 17:23 Ur Leukocyte Esterase 1+ (Negative) H 08/08/22 17:23 Urine RBC 0-4 /hpf (0-2) H 08/08/22 17:23 Urine WBC 5-10 /hpf (0-5) H 08/08/22 17:23 Ur Squamous Epith Cells 0-4 /hpf (0-5) H 08/08/22 17:23 Amorphous Sediment Not Reportable 08/08/22 17:23 Urine Bacteria 4+ /hpf (NONE) H 08/08/22 17:23 RSV Nasal Swab Not detected (Not Detected) 08/08/22 17:27 RSV Nasal Swab Int Cntl Not detected (Not Detected) 08/08/22 17:27 Bronch Specimen Source Right lower lobe 08/16/22 12:10 Bronchial Fluid Color Colorless 08/16/22 12:10 Bronchial Fluid Appearance Clear (CLEAR) 08/16/22 12:10 Bronchial Fluid WBC 940 /uL 08/16/22 12:10 Bronchial Fluid RBC 1 10^3/uL 08/16/22 12:10 Bronch Cells Counted 200 08/16/22 12:10 Bronchial Neutrophils 178.00 % (0.9-2.3) H 08/16/22 12:10 Bronchial Lymphocytes 20.00 % (10.71-12.91) H 08/16/22 12:10 Bronchial Diff Comment Yes 08/16/22 12:10 Vancomycin Trough 15.3 ug/mL (10-15) H 08/17/22 20:48 Adenovirus (PCR) Not detected (Not Detected) 08/08/22 17:27 Coronavirus 229E (PCR) Not detected (NOT DETECT) 08/14/22 09:06 Human Metapneumovir PCR Not detected (Not Detected) 08/08/22 17:27 Influenza A (RT-PCR) Not detected (Not Detected) 08/08/22 17:27 Influenza A (H1) PCR Not detected (Not Detected) 08/08/22 17:27 Influenza A (H3) PCR Not detected (Not Detected) 08/08/22 17:27 Influenza B (RT-PCR) Not detected (Not Detected) 08/08/22 17:27 Parainfluenzae Type 1 Not detected (Not Detected) 08/08/22 17:27 Parainfluenzae Type 2 Not detected (Not Detected) 08/08/22 17:27 Parainfluenzae Type 3 Not detected (Not Detected) 08/08/22 17:27 RSV Ab Comment see note 08/08/22 17:27 Rhinovirus (PCR) Not detected (Not Detected) 08/08/22 17:27 SARS-CoV-2 (PCR) Not detected (NOT DETECT) 08/14/22 09:06 SARS-CoV-2 Ag (Rapid) Negative (Negative) 08/08/22 20:47 Blood Type A Positive 08/12/22 09:10 Rho(D) Type Positive 08/12/22 09:10 Antibody Screen Negative 08/12/22 09:10 Crossmatch See Detail 08/12/22 09:10 Micro: Microbiology 08/18/22 17:00 Stool Lactoferrin - Final Stool Occult Blood (FIT) - Final 08/16/22 12:10 Gram Stain - Final Lung Right Lower Lobe Bronchoalveolar Lavage Culture - Preliminary A&P Assessment and plan (1) Respiratory failure with hypoxia: Status: Acute (2) ARDS (adult respiratory distress syndrome): Status: Acute (3) Aspiration pneumonia: Status: Acute (4) Gastric bezoar: Status: Acute (5) Severe protein-energy malnutrition: Status: Acute (6) Hx of gastric bypass: Status: Acute (7) Nausea and vomiting: Status: Acute (8) Hypoalbuminemia: Status: Chronic (9) Esophageal hiatal hernia: Status: Chronic (10) Grade I diastolic dysfunction: Status: Chronic (11) Hypothyroidism: Status: Chronic Qualifiers: Hypothyroidism type: acquired Qualified Code(s): E03.9 - Hypothyroidism, unspecified (12) UTI due to Klebsiella species: Status: Acute Plan #acute hypoxic respiratory failure secondary to ARDS secondary to aspiration pneumonia/fluid overload #Patient has history of grade 1 diastolic dysfunction-currently +12 L since admission #Hypokalemia -2.4; supplemented today morning #Fever spikes with elevated procal - suspect pneumonia not responding to zosyn -Initially intubated due to aspiration on 08/10/2022-extubated on 08/14/2022 -reintubated 08/16/22 for increasing requirements on high flow nasal cannula - abg 7.4 8/44/82/32/97% currently on SIMV 350/12/8/35%-we will try PSV today for some time and later SIMV -Patient is very deconditioned and still clinically congested- -off sedation and off pressors-following commands and awake - NIF - 22 -Target MAP 65-Levophed if needed -Currently on Zosyn for aspiration pneumonia as well as UTI 08/08/2022 positive for E. coli as well as Klebsiella; procalcitonin - 2.65 & fever spikes; discontinued Zosyn and started pt on vancomycin and imipenam; s/p bronchoscopy 08/16/2022 and BAL from [facility]-final cultures pending; MRSA nares negative -Appears less congested and she is not net -2.3 L last 24 hours and overall net +ve 9 we will L since admsision; -Renal functions are good-we will decrease Lasix 40 Mg once daily and try to keep net negative fluid balance -Hypokalemia 2.3-mhvjzicivtco-ivisriu monitor; hyponatremia 148-Free water every 6 over -Monitor renal function/electrolytes/input output -We will continue to support her respiration using PSV/SIMV mode -We will plan to extubate next 24 to 48 hours -We will start her droxidopa Parkinson syndrome; 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 hydrocortisone maintenance dose for adrenal insufficiency and discontinue fludrocortisone #History of gastric bypass in 2001 #Patient presented with nausea vomiting-with suspected food impaction and large esophageal hiatal hernia which was pushed through EGD on 08/11/2022 #CT abdomen pelvis 08/17/2022-no evidence of obvious obstruction, complex gastric bypass surgery incompletely defined, NGT placed in jejunum -Patient follows up with the surgeon as outpatient-and underwent an endoscopy July 27, 2022-recommended to take small meals-apparently patient is noncompliant -A PICC line has been placed and patient received TPN for nutrition; yesterday NG tube was placed under fluoroscopic guidance and the tip is in duodenum-we will start tube feeding today -It is imperative that if she is noncompliant with her small frequent meals-she is at risk of recurrent aspiration leading to respiratory failure on multiple hospital admissions-so we will obtain general surgery consult when available ICU CHECKLIST: Problem list updated Verbal orders reviewed and signed Analgesia: Fentanyl Glycemic Control: N/A Nutrition: NG feeding Restraint Renewal (within 24 hrs): yes Ulcer Prophylaxis: PPI Chemical Thromboprophylaxis: Prophylaxis: Lovenox Mechanical Thromboprophylaxis: SCD Need for Central line: PICC line for TPN/pressure Need for Dodd catheter: urine output monitoring Critical Care Time (No Overlap): 45 min This patient has a high probability of sudden, clinically significant deterioration, which requires the highest level of physician preparedness to intervene urgently. I managed/supervised life or organ supporting interventions that required frequent physician assessment. I devoted my full attention in the ICU to the direct care of this patient for the period of time indicated above. Time I spent with family or surrogate(s) is included only if the patient was incapable of providing necessary information or participating in decision making. Time devoted to teaching and to any procedures I billed separately is not included. Services Provided: Telemetry review Mechanical Ventilation Hemodynamic interpretation, assessment and management Review and interpretation of CXR Review and interpretation of lab values Review and interpretation of microbiologic data and culture results Review of medications and administration Review and interpretation of Nutrition requirements and management Discussion of management with other consultants and services Clinical update to family members Attestations Medical Necessity Statement*: still intubated requiring mechanical ventilation Time Spent in Patient Care: Greater than 35 minutes (>than 50% of time spent in counselling and/or direct pt care on unit). Critical Care Time: The high probability of a clinically significant, sudden or life threatening deterioration of the patient's [Pulmonary, GI, Infectious] system(s) required my full and direct attention, intervention and personal management. The critical care time is as shown. This time is in addition to time spent performing any reported procedures but includes the following: [x] Data and vital sign review and interpretation [x] Patient assessment, examination and intervention [x] Documentation [x] Medication orders and management Critical Care Time (min): 45 Coding Level of Care Code Established Pt Acute Desizing Machine Operator Head End for Chg Fwd Patient Type Established History Comprehensive Exam Comprehensive Medical Decision Making High Complexity Diagnoses Respiratory failure with hypoxia J96.91 ARDS (adult respiratory distress syndrome) J80 Aspiration pneumonia J69.0 Gastric bezoar T18.2XXA Severe protein-energy malnutrition E43 Hx of gastric bypass Z98.84 Nausea and vomiting R11.2 Hypoalbuminemia E88.09 Esophageal hiatal hernia K44.9 Grade I diastolic dysfunction I51.89 Hypothyroidism E03.9 Hypothyroidism type: acquired UTI due to Klebsiella species N39.0; B96.89 Time Spent (min) 45
[2022-08-19 11:49] LABS: ABG PCO2 41.8 mmHg (35-45); ABG PH Result 7.57 (7.35-7.45); Alveolar-Arterial Oxygen Gradi 9.6 mmHg (5-10); Arterial Blood Gas Hematocrit 31.7 % (37-47); Base Excess ABG 14.9 mmol/L (-2.0-2.0); Blood Gas Allen Test Pos; Blood Gas Operator Identificat BD; Blood Gas Sample Site Brachial, right; Blood Gas Sample Type Arterial; Carboxyhemoglobin 0.4 %THgb (0.4-20.1); HCO3 ABG 38.4 mmol/L (22-26); HGB O2 Sat 87.5 % (95-100); Ionized Calcium Level - ABG 1.2 mmol/L (1.1-1.4); Methemoglobin 0.9 % (0.4-1.5); Oxygen Device VENT; Oxygen Saturation ABG 88.7; Potassium Level - ABG 2.8 mmol/L (3.5-5.0); Total Hemoglobin 10.3 g/dL (12-16)
[2022-08-19] MEDS: sucralfate 1 gm/10 mL Oral Liq UDC PO ×2 (12:24→17:21)
[2022-08-19] MEDS: albumin 12.5 GM/250 ML VIAL IV (12:24)
[2022-08-19 12:28] LABS: Glucose Point of Care 110 mg/dL (70-110)
[2022-08-19] MEDS: potassium chloride premix 100 ML 25 MEQ IV (12:28)
--- NOTE | 2022-08-19 13:46 | PM.PN ---
Vitals/I&O/Wt Last Vital Signs Temp 98.3 F 08/19/22 12:00 Pulse 88 08/19/22 12:00 Resp 12 08/19/22 12:00 BP 104/71 08/19/22 12:00 Pulse Ox 98 08/19/22 12:00 O2 Del Method 08/19/22 12:00 O2 Flow Rate 70 08/16/22 00:00 FiO2 25 08/19/22 12:00 08/18/22 08/19/22 08/19/22 22:59 06:59 14:59 Intake Total 586.713 / 1115.880 259 / 1374.880 455 / 455 Output Total 1450 / 3050 700 / 3750 Balance -863.287 / -1934.120 -441 / -2375.120 455 / 455 Physical Exam Narrative: PHYSICAL EXAM: General: lying in bed, sedated and intubated HEENT:NCAT, PERRLA, EOMI Neck: Supple Lungs: Improving breath sounds well Heart: s1/s2, RRR Abd: soft, NT, ND, BS + Normoactive Extremities: No obvious pedal edema bilaterally; improving anasarca over abdominal wall POST PRODUCTION ASSISTANT: No focal deficits-follows commands prior to intubation. SKIN: Scattered sores and bruises in different stages of healing? LDA: # CVC: Right PICC line 08/15/2022 Urinary Catheter Management: Dodd: Cath Placed During This Visit: yes Reason for Continuing Indwelling Catheter: Accurate Measurement of Urinary Output in Critically Ill Patients Urinary Catheter Date of Insertion: 08/11/22 Urinary Catheter Time of Insertion: 00:20 Data : 08/19/22 04:44 08/19/22 04:44 Micro: Microbiology 08/16/22 12:10 Gram Stain - Final Lung Right Lower Lobe Bronchoalveolar Lavage Culture - Preliminary 08/18/22 17:00 Stool Lactoferrin - Final Stool Occult Blood (FIT) - Final A&P Assessment and plan (1) Gastric bezoar: Status: Acute (2) Hx of gastric bypass: Status: Acute (3) Severe protein-energy malnutrition: Status: Acute (4) Aspiration pneumonia: Status: Acute (5) Hypernatremia: Status: Acute (6) Respiratory failure with hypoxia: Status: Acute (7) Orthostatic hypotension: Status: Chronic (8) Major depression, recurrent, full remission: Status: Chronic (9) Nausea and vomiting: Status: Acute (10) Post-traumatic stress disorder, chronic: Status: Chronic (11) Generalized anxiety disorder: Status: Chronic (12) Borderline personality disorder: Status: Chronic (13) Minor neurocognitive disorder: Status: Chronic (14) Encounter for long-term opiate analgesic use: Status: Chronic (15) Chronic lumbar radiculopathy: Status: Chronic (16) Status post gastric bypass for obesity: Status: Chronic (17) Frequent falls: Status: Acute (18) Hypoalbuminemia: Status: Chronic (19) Pneumonia: Status: Acute Qualifiers: Pneumonia type: aspiration pneumonia (20) Chronic migraine: Status: Chronic (21) Hypothyroidism: Status: Chronic Qualifiers: Hypothyroidism type: acquired Qualified Code(s): E03.9 - Hypothyroidism, unspecified (22) Grade I diastolic dysfunction: Status: Chronic (23) Esophageal hiatal hernia: Status: Chronic (24) Macrocytic anemia: Status: Chronic (25) DDD (degenerative disc disease), lumbar: Status: Chronic (26) UTI due to Klebsiella species: Status: Acute (27) ARDS (adult respiratory distress syndrome): Status: Acute (28) Fever: Status: Acute Plan #Acute respiratory failure with hypoxia #Vent dependent respiratory failure #Aspiration pneumonia #Nausea, vomiting #Pseudo gastric outlet obstruction #Hypernatremia #Status post gastric bypass surgery for obesity #Grade 1 diastolic dysfunction with generalized anasarca #Severe protein calorie malnutrition #Orthostatic hypotension #Hypothyroidism #Macrocytic anemia chronic #Chronic esophageal hiatal hernia #Gastric bezoar --Initially intubated due to aspiration on 08/10/2022-extubated on 08/14/2022 -Reintubated 08/15/2022 -Continue to diurese patient. Lasix 40 IV twice daily -Continue fentanyl and propofol ? Continue vancomycin and imipenem ? MRSA nares negative. BCx negative to date. repeat Bcx 08/24 also NTD. - BAL report pending. ? Initially had UTI on 08/08/2022 for E. coli and Klebsiella. ? Precedex stop on 08/15/2022 ? Restart fludracortisone and midodrine. ? NG tube that was initially placed was pulled out somehow on 08/13/2022. - NG tube placed under flouro guidance 08/17/2022. - CT Abd pelvis with oral contrast did not show any evidence of bowel obstruction. - Will stop TPN to avoid extra fluid administration. - Start Tube feeds with Jevity.? 10 cc/h will be increased 5 cc every 6 hours with target of 30 cc/h.? Free water flushes 250 cc every 6 hours ? Long-term due to repeated risk of aspiration secondary to patient's esophageal hernia and generalized deconditioning and critical care polyneuropathy patient may need to have PEG/gastrostomy tube placement with a potential tracheostomy if they are unable to extubate her. ? Continue to wean down oxygen with goal of extubating patient once patient is more euvolemic and oxygen requirements come down -Pulmonology consulted, recommendations appreciated ? We will replete potassium ? Continue nebulization steroids Pulmicort -Psych consulted for patient's paranoia. Consult note pending. - Please see pulm note for further management. - Will restart northera, stop fludracortisone, place on hydrocortisone 10 in AM and 5 mg in PM, DVT prophylaxis: Lovenox subc 40 daily Attestations Medical Necessity Statement*: Critically ill in ICU Critical Care Time: 25 Coding Level of Care Code Acute In [employer] for Chg Fwd Diagnoses Gastric bezoar T18.2XXA Hx of gastric bypass Z98.84 Severe protein-energy malnutrition E43 Aspiration pneumonia J69.0 Hypernatremia E87.0 Respiratory failure with hypoxia J96.91 Orthostatic hypotension I95.1 Major depression, recurrent, full remission F33.42 Nausea and vomiting R11.2 Post-traumatic stress disorder, chronic F43.12 Generalized anxiety disorder F41.1 Borderline personality disorder F60.3 Minor neurocognitive disorder G31.84 Encounter for long-term opiate analgesic use Z79.891 Chronic lumbar radiculopathy M54.16 Status post gastric bypass for obesity Z98.84 Frequent falls R29.6 Hypoalbuminemia E88.09 Pneumonia J18.9 Pneumonia type: aspiration pneumonia Chronic migraine Hypothyroidism E03.9 Hypothyroidism type: acquired Grade I diastolic dysfunction I51.89 Esophageal hiatal hernia K44.9 Macrocytic anemia D53.9 DDD (degenerative disc disease), lumbar M51.36 UTI due to Klebsiella species N39.0; B96.89 ARDS (adult respiratory distress syndrome) J80 Fever R50.9
[2022-08-19 17:31] LABS: Alanine Aminotransferase 19 U/L (0-33); Albumin Level 2.9 g/dL (3.5-5.2); Alkaline Phosphatase 114 U/L (35-105); Anion Gap 10.5 (5-19); Aspartate Amino Transferase 37 U/L (0-32); Blood Urea Nitrogen 11 mg/dL (8-23); Calcium 8.3 mg/dL (8.5-10.5); Carbon Dioxide 36 mmol/L (22-29); Chloride 99 mmol/L (98-107); Globulin 1.7 g/dL (1.3-4.6); Glomerular Filtration Rate 225.4 mL/min (90-130); Glucose 94 mg/dL (65-115); Magnesium 1.8 mg/dL (1.7-2.3); Osmolality Calculated 293 mOsm/kg (285-295); Potassium 3.5 mmol/L (3.5-5.1); Sodium 142 mmol/L (136-145); Total Bilirubin 0.7 mg/dL (0.15-1.2); Total Protein 4.6 g/dL (6.6-8.7)
[2022-08-19 17:38] LABS: Glucose Point of Care 90 mg/dL (70-110)
[2022-08-19 17:42] LABS: ABG PH Result 7.54 (7.35-7.45); Alveolar-Arterial Oxygen Gradi 10.5 mmHg (5-10); Arterial Blood Gas Hematocrit 28.1 % (37-47); Base Excess ABG 13.3 mmol/L (-2.0-2.0); Blood Gas Allen Test Pos; Blood Gas Operator Identificat BD; Blood Gas Sample Site Brachial, right; Blood Gas Sample Type Arterial; Blood Gas Tidal Volume 0.35; Carboxyhemoglobin 0.2 %THgb (0.4-20.1); HCO3 ABG 37.1 mmol/L (22-26); HGB O2 Sat 93.4 % (95-100); Ionized Calcium Level - ABG 1.2 mmol/L (1.1-1.4); Oxygen Device VENT; Oxygen Saturation ABG 94.6; PO2 ABG 79.1 mmHg (80.0-100.0); Potassium Level - ABG 3.6 mmol/L (3.5-5.0); Total Hemoglobin 9.2 g/dL (12-16)
[2022-08-19] MEDS: lactated ringers 500 ML 999 ML IV (18:37)
[2022-08-19 19:57] LABS: Glucose Point of Care 112 mg/dL (70-110)
[2022-08-19] MEDS: hydrocortisone 10 mg Tablet 5 MG PO (20:01)
[2022-08-19] MEDS: enoxaparin 40 mg/0.4 mL Syringe SUBCUT (21:20)
[2022-08-20] VITALS (105 sets, daily range): BP systolic 81–123; BP diastolic 55–83; PULSE 73–103; RESP 11–20; TEMP 36.8–37.1; O2SAT 94–100
[2022-08-20] MEDS: chlorhexidine gluconate 4% Btl 118 mL 1 APPLIC TOPICAL (00:36)
[2022-08-20] MEDS: sucralfate 1 gm/10 mL Oral Liq UDC PO ×4 (00:36→17:54)
[2022-08-20] MEDS: ipratropium-albuterol 3 mL Neb INHALATION ×4 (03:00→19:32)
[2022-08-20 03:52] LABS: Basophils % 0.4 %; Eosinophils % 0.2 %; Hemoglobin 8.7 g/dL (11.5-15.3); Lymphocytes # 2.5 10^3/uL (0.8-4.8); Lymphocytes % 25.7 %; Mean Corpuscular HGB Conc 31.1 g/dL (30.0-36.0); Mean Corpuscular Hemoglobin 34.8 pg (28.0-34.0); Mean Platelet Volume 11.5 fL (7.4-10.4); Monocytes # 1.3 10^3/uL (0.2-0.9); Monocytes % 12.6 %; Neutrophils # 5.59 10^3/uL (1.8-7.7); Neutrophils % 56.5 %; Nucleated Red Blood Cells % 0 %; Platelet Count 269 10^3/cmm (130-400); Red Cell Distribution Width 18.3 % (12.1-15.1); White Blood Count 9.9 10^3/uL (4.0-10.0)
[2022-08-20 04:20] LABS: Alanine Aminotransferase 17 U/L (0-33); Albumin Level 2.3 g/dL (3.5-5.2); Alkaline Phosphatase 123 U/L (35-105); Anion Gap 8.7 (5-19); Aspartate Amino Transferase 36 U/L (0-32); Blood Urea Nitrogen 12 mg/dL (8-23); Calcium 8.1 mg/dL (8.5-10.5); Carbon Dioxide 34 mmol/L (22-29); Chloride 102 mmol/L (98-107); Globulin 1.9 g/dL (1.3-4.6); Glomerular Filtration Rate 225.4 mL/min (90-130); Glucose 92 mg/dL (65-115); Magnesium 1.9 mg/dL (1.7-2.3); Osmolality Calculated 291 mOsm/kg (285-295); Potassium 3.7 mmol/L (3.5-5.1); Sodium 141 mmol/L (136-145); Total Bilirubin 0.6 mg/dL (0.15-1.2); Total Protein 4.2 g/dL (6.6-8.7)
[2022-08-20] MEDS: hydrocortisone 10 mg Tablet PO (05:08)
[2022-08-20] MEDS: midodrine 5 mg TABLET 10 MG PO ×3 (05:08→17:55)
[2022-08-20] MEDS: pantoprazole 40 mg SDV IVP ×2 (05:08→17:55)
[2022-08-20] MEDS: levothyroxine 125 mcg Tablet PO (05:08)
--- NOTE | 2022-08-20 06:39 | XRR_ITS ---
PROCEDURE INFORMATION: Exam: XR Chest Exam date and time: 08/20/2022 6:50 AM Age: 62 years old Clinical indication: Condition or disease; Lung condition and disease; Pneumonia TECHNIQUE: Imaging protocol: Radiologic exam of the chest. Views: 1 view. COMPARISON: CR (CHEST, ) 08/19/2022 1:38 PM FINDINGS: Tubes, catheters and devices: An endotracheal tube is present with the tip 4.6 cm above the prashant. A nasogastric tube extends down to the stomach. A right arm PICC is present with the tip projecting in the SVC. Lungs: There are diffuse bilateral pulmonary infiltrates especially throughout the left lung which have not significantly changed since previous study. Pleural spaces: Unremarkable. No pleural effusion. No pneumothorax. Heart/Mediastinum: Unremarkable. No cardiomegaly. Bones/joints: Unremarkable. XR/XR chest 1V portable [id number] IMPRESSION: Bilateral pulmonary infiltrates especially in the left lung. No significant change.
[2022-08-20 07:44] LABS: Glucose Point of Care 99 mg/dL (70-110)
[2022-08-20] MEDS: potassium chloride oral liq 20 mEq/15 mL UDC 40 MEQ PO ×2 (08:05→17:54)
[2022-08-20] MEDS: duloxetine 60 mg Capsule PO (08:06)
[2022-08-20] MEDS: nystatin 100,000 unit/mL UDC 5 mL 100000 UNIT PO ×3 (08:06→17:54)
[2022-08-20] MEDS: zinc gluconate 50 mg Tablet PO (08:06)
[2022-08-20] MEDS: BuSPIRONE 10 mg Tablet 30 MG PO ×2 (08:06→17:55)
[2022-08-20] MEDS: zonisamide 100 MG Capsule 50 MG PO (08:06)
[2022-08-20] MEDS: ascorbic acid 500 mg Tablet 1000 MG PO ×2 (08:06→17:55)
[2022-08-20] MEDS: budesonide 0.5 mg/2 mL Neb INHALATION ×2 (08:35→19:32)
--- NOTE | 2022-08-20 09:00 | PC.NURSE ---
All sedation and tube feedings are paused for weaning trial. Patient is awake and following all commands. Left foot this AM is cold to touch but a pulse is easily palpated.
--- NOTE | 2022-08-20 09:04 | PM.PN ---
Subjective Subjective: -Patient seen at bedside today -Awake and following commands -Off sedation off pressors -Tolerating SIMV rate to 10-will try PSV-NIF -25 ; Chest x ray shows worsening infiltrates on left lung - will resend sputum cultures -ABG yesterday showed metabolic alkalosis- -Clinically appears less congested -Labs reveal potassium 3.7-we will closely monitor; -Continue with weaning trials Medications: Reviewed: Yes Vitals/I&O/Wt Last Vital Signs Temp 98.6 F 08/20/22 04:00 Pulse 91 08/20/22 08:45 Resp 12 08/20/22 08:40 BP 111/78 08/20/22 08:45 Pulse Ox 100 08/20/22 08:45 O2 Del Method 08/20/22 08:39 O2 Flow Rate 70 08/16/22 00:00 FiO2 30 08/20/22 08:40 08/19/22 08/20/22 08/20/22 22:59 06:59 14:59 Intake Total 1560.5 / 2265.5 100 / 2365.5 250 / 250 Output Total 1300 / 1300 200 / 1500 Balance 260.5 / 965.5 -100 / 865.5 250 / 250 Physical Exam Narrative: PHYSICAL EXAM: General: lying in bed, sedated and intubated HEENT:NCAT, PERRLA, EOMI Neck: Supple Lungs: Improving breath sounds well Heart: s1/s2, RRR Abd: soft, NT, ND, BS + Normoactive Extremities: No obvious pedal edema bilaterally; improving anasarca over abdominal wall [employer]: No focal deficits-follows commands prior to intubation. SKIN: Scattered sores and bruises in different stages of healing? LDA: # CVC: Right PICC line 08/15/2022 Urinary Catheter Management: Dodd: Cath Placed During This Visit: yes Reason for Continuing Indwelling Catheter: Accurate Measurement of Urinary Output in Critically Ill Patients Urinary Catheter Date of Insertion: 08/11/22 Urinary Catheter Time of Insertion: 00:20 Data : 08/20/22 03:26 08/20/22 03:26 Other Labs: Radiology Impressions Head CT 08/08/22 13:35 IMPRESSION: 1. No evidence of intracranial hemorrhage or mass effect. 2. Mild small vessel changes. Mild parenchymal volume loss. 3. No acute intracranial findings. Chest/Abdomen/Pelvis CT 08/08/22 14:46 IMPRESSION: 1. Small LEFT greater than RIGHT pleural effusions with compressive atelectasis in the lung bases. 2. A few patchy hazy ground glass infiltrates in both lower lobes and LEFT greater than RIGHT upper lobes likely infectious or inflammatory. No focal pneumonia. 3. Postoperative changes GE junction with moderate to large esophageal hiatal hernia. Fluid distended thoracic esophagus with air-fluid level. Hiatal hernia appears progressed compared to March 30, 2022 some of which may be due to fluid distention. 4. Diffuse fatty infiltration liver. Hepatomegaly. 5. Diffuse body wall anasarca. 6. Small volume pelvic ascites. 7. Air-fluid level in the bladder likely due to recent instrumentation. 8. No evidence of high-grade small or large bowel obstruction. 9. Chronic compression deformities L1 and L4 unchanged since March 30, 2022. 10. Prior gastric bypass, cholecystectomy, hysterectomy. Upper GI Series 08/10/22 13:59 IMPRESSION: 1. Large hiatal hernia and status post gastric bypass. 2. Favor this large hiatal hernia contains food products, bezoar-like material. 3. Liquid contrast did exit this large hernia but there may be a partial outlet obstruction. None of the food products did exit during this examination. KUB X-Ray 08/11/22 12:05 IMPRESSION: 1. Multiple dilated loops of small bowel in the left upper quadrant. There is gas and stool throughout the majority of the colon. This could reflect small-bowel obstruction or ileus. 2. Bibasilar opacities and bilateral pleural effusions, left greater than right. ADDENDUM: 08/11/22 1414 Findings discussed with MARIA E RAMOS at 08/11/2022 2:12 PM CDT. Fluoroscopy 08/17/22 11:00 IMPRESSION: Uncomplicated placement of 12 Macedonian nasogastric tube through the gastric pouch into the jejunal portion of the gastrojejunal anastomosis. Abdomen/Pelvis CT 08/17/22 12:57 IMPRESSION: Complex gastric bypass surgery incompletely defined. There is mild dilatation of small bowel as well as normal caliber small bowel. From the tip of the intubation tube distally there is no obstruction to flow of contrast with opacification of colon and rectum. Chest X-Ray 08/20/22 06:39 IMPRESSION: Bilateral pulmonary infiltrates especially in the left lung. No significant change. Laboratory Results WBC 9.9 10^3/uL (4.0-10.0) 08/20/22 03:26 RBC 2.50 10^6/uL (4.1-5.3) L 08/20/22 03:26 Hgb 8.7 g/dL (11.5-15.3) L 08/20/22 03:26 Hct 28.0 % (37.0-47.0) L 08/20/22 03:26 MCV 112.0 fl (81-99) H 08/20/22 03:26 MCH 34.8 pg (28.0-34.0) H 08/20/22 03:26 MCHC 31.1 g/dL (30.0-36.0) 08/20/22 03:26 RDW 18.3 % (12.1-15.1) H 08/20/22 03:26 Plt Count 269 10^3/cmm (130-400) 08/20/22 03:26 MPV 11.5 fL (7.4-10.4) H 08/20/22 03:26 Neut % (Auto) 56.5 % 08/20/22 03:26 Lymph % (Auto) 25.7 % 08/20/22 03:26 Marshall % (Auto) 12.6 % 08/20/22 03:26 Eos % (Auto) 0.2 % 08/20/22 03:26 Baso % (Auto) 0.4 % 08/20/22 03:26 Neut # (Auto) 5.59 10^3/uL (1.8-7.7) 08/20/22 03:26 Lymph # (Auto) 2.5 10^3/uL (0.8-4.8) 08/20/22 03:26 Marshall # (Auto) 1.3 10^3/uL (0.2-0.9) H 08/20/22 03:26 Eos # (Auto) 0.0 10^3/uL (0.0-0.8) 08/20/22 03:26 Baso # (Auto) 0.0 10^3/uL (0.0-0.1) 08/20/22 03:26 Nucleated RBC % (auto) 0 % 08/20/22 03:26 Total Counted 100 (0-100) 08/19/22 04:44 Atypical Lymphs % 0.0 % (0-5) 08/19/22 04:44 Absolute Neutrophils 6.4 10^3/cmm (1.4-6.5) 08/19/22 04:44 Segmented Neutrophils 58 % 08/19/22 04:44 Abs Segm Neuts (Man) 5.9 10/cmm (1.6-7.1) 08/19/22 04:44 Band Neutrophils 5.0 % 08/19/22 04:44 Abs Band Neuts (Man) 0.5 10^3/cmm (0.0-1.2) 08/19/22 04:44 Absolute Lymphocytes 2.8 10^3/cmm (1.2-3.4) 08/19/22 04:44 Lymphocytes (Manual) 28 % 08/19/22 04:44 Monocytes (Manual) 7.0 % 08/19/22 04:44 Absolute Monocytes 0.7 10^3/cmm (0.1-0.6) H 08/19/22 04:44 Eosinophils (Manual) 0 % 08/19/22 04:44 Absolute Eosinophils 0.0 10^3/cmm (0.0-0.7) 08/19/22 04:44 Basophils (Manual) 0.0 % 08/19/22 04:44 Absolute Basophils 0.0 10^3/cmm (0.0-0.2) 08/19/22 04:44 Metamyelocytes 2.0 % 08/19/22 04:44 Nucleated RBCs # 0.0 /100WBC 08/20/22 03:26 Toxic Vacuolation 1+ H 08/16/22 02:19 Platelet Estimate Normal (Normal) 08/19/22 04:44 Polychromasia 1+ H 08/16/22 02:19 Anisocytosis 2+ H 08/16/22 02:19 Macrocytosis 1+ H 08/19/22 04:44 D-Dimer 0.75 ug/mIFEU (0-0.59) H 08/10/22 04:16 Specimen Type Arterial 08/20/22 09:30 Sample Site Radial, left 08/20/22 09:30 ABG pH 7.53 (7.35-7.45) H 08/20/22 09:30 ABG pCO2 41.7 mmHg (35-45) 08/20/22 09:30 ABG pO2 78.8 mmHg (80.0-100.0) L 08/20/22 09:30 ABG HCO3 34.6 mmol/L (22-26) H 08/20/22 09:30 ABG O2 Saturation 94.5 08/20/22 09:30 ABG Base Excess 10.8 mmol/L (-2.0-2.0) H 08/20/22 09:30 Oliver Test Pos 08/20/22 09:30 A-a O2 Gradient 10.8 mmHg (5-10) H 08/20/22 09:30 Hematocrit 30.2 % (37-47) L 08/20/22 09:30 Hgb O2 Saturation 93.7 % (95-100) L 08/20/22 09:30 Carboxyhemoglobin 0.0 %THgb (0.4-20.1) L 08/20/22 09:30 Methemoglobin 0.9 % (0.4-1.5) 08/20/22 09:30 Total Hemoglobin 9.9 g/dL (12-16) L 08/20/22 09:30 Sodium 140.0 mmol/L (131-143) 08/20/22 09:30 Potassium 4.0 mmol/L (3.5-5.0) 08/20/22 09:30 Glucose 95.0 mg/dL (70-115) 08/20/22 09:30 Ionized Calcium 1.2 mmol/L (1.1-1.4) 08/20/22 09:30 O2 Delivery Device Vent 08/20/22 09:30 O2 Liters/Min 55.0 % 08/15/22 13:50 FiO2 30.0 % 08/20/22 09:30 Tidal Volume 0.35 08/19/22 17:31 PEEP 5.0 cmH20 08/20/22 09:30 Profile Trimmer ID Gd 08/20/22 09:30 Sodium 141 mmol/L (136-145) 08/20/22 03:26 Potassium 3.7 mmol/L (3.5-5.1) 08/20/22 03:26 Chloride 102 mmol/L (98-107) 08/20/22 03:26 Carbon Dioxide 34 mmol/L (22-29) H 08/20/22 03:26 Anion Gap 8.7 (5-19) 08/20/22 03:26 BUN 12 mg/dL (8-23) 08/20/22 03:26 Creatinine 0.3 mg/dL (0.5-0.9) L 08/20/22 03:26 GFR Calculation 225.4 mL/min (90-130) H 08/20/22 03:26 Glucose 92 mg/dL (65-115) 08/20/22 03:26 POC Glucose 95 mg/dL (70-110) 08/20/22 12:33 Estimat Average Glucose 59 08/10/22 04:16 Hemoglobin A1c 3.7 % (4.0-6.0) L 08/10/22 04:16 Calculated Osmolality 291 mOsm/kg (285-295) 08/20/22 03:26 Lactic Acid 2.6 mmol/L (0.5-2.2) H 08/08/22 20:25 Lactate 1.4 mmol/L (0.5-2.2) 08/09/22 05:05 Calcium 8.1 mg/dL (8.5-10.5) L 08/20/22 03:26 Phosphorus 3.0 mg/dL (2.5-4.5) 08/20/22 03:26 Magnesium 1.9 mg/dL (1.7-2.3) 08/20/22 03:26 Total Bilirubin 0.6 mg/dL (0.15-1.2) 08/20/22 03:26 AST 36 U/L (0-32) H 08/20/22 03:26 ALT 17 U/L (0-33) 08/20/22 03:26 Alkaline Phosphatase 123 U/L (35-105) H 08/20/22 03:26 Troponin T Gen 5 ng/L 28 ng/L (0-10) H 08/10/22 04:16 Troponin T Baseline 25 ng/L (0-10) H 08/08/22 13:48 Troponin T 120 Minute 24.05 ng/L (0-10) H 08/08/22 15:33 Delta Troponin T -0.95 ABS# (0-10) L 08/08/22 15:33 Troponin T Hi Sens 6Hr 25.69 ng/L (0-10) H 08/09/22 05:05 Troponin T Hi Sens 6Hr Delta 0.69 ng/L (0-12) 08/09/22 05:05 C-Reactive Protein 9.4 mg/L (0.0-4.9) H 08/08/22 13:48 NT-Pro-B Natriuret Pep 807 pg/mL (0-125) H 08/08/22 13:48 Total Protein 4.2 g/dL (6.6-8.7) L 08/20/22 03:26 Albumin 2.3 g/dL (3.5-5.2) L 08/20/22 03:26 Globulin 1.9 g/dL (1.3-4.6) 08/20/22 03:26 Triglycerides 109 mg/dL (0-150) 08/10/22 04:16 Cholesterol 66 mg/dL (0-200) 08/10/22 04:16 LDL Cholesterol, Calc 34 mg/dL (50-129) L 08/10/22 04:16 Total VLDL Cholesterol 22 mg/dL (0-30) 08/10/22 04:16 HDL Cholesterol 10 mg/dL (60-100) L 08/10/22 04:16 Cholesterol/HDL Ratio 6.60 mg/dL (0.0-4.40) H 08/10/22 04:16 Procalcitonin 2.36 ng/mL (0-0.5) H 08/15/22 21:19 TSH 0.49 uIU/mL (0.27-4.20) 08/08/22 13:48 Random Cortisol 25.42 ug/dL (2.47-19.5) H 08/11/22 03:45 Urine Color Yellow (Yellow) 08/08/22 17:23 Urine Appearance Hazy (CLEAR) A 08/08/22 17:23 Urine pH 6 (5-7) 08/08/22 17:23 Ur Specific [place] 1.000 (1.005-1.030) L 08/08/22 17:23 Urine Protein Neg (Negative) 08/08/22 17:23 Urine Glucose (UA) Norm (Normal) 08/08/22 17:23 Urine Ketones Negative (Negative) 08/08/22 17:23 Urine Blood Neg (Negative) 08/08/22 17:23 Urine Nitrate Negative (Negative) 08/08/22 17:23 Urine Bilirubin Neg (Negative) 08/08/22 17:23 Urine Urobilinogen 1 mg/dL (Negative) H 08/08/22 17:23 Ur Leukocyte Esterase 1+ (Negative) H 08/08/22 17:23 Urine RBC 0-4 /hpf (0-2) H 08/08/22 17:23 Urine WBC 5-10 /hpf (0-5) H 08/08/22 17:23 Ur Squamous Epith Cells 0-4 /hpf (0-5) H 08/08/22 17:23 Amorphous Sediment Not Reportable 08/08/22 17:23 Urine Bacteria 4+ /hpf (NONE) H 08/08/22 17:23 RSV Nasal Swab Not detected (Not Detected) 08/08/22 17:27 RSV Nasal Swab Int Cntl Not detected (Not Detected) 08/08/22 17:27 Bronch Specimen Source Right lower lobe 08/16/22 12:10 Bronchial Fluid Color Colorless 08/16/22 12:10 Bronchial Fluid Appearance Clear (CLEAR) 08/16/22 12:10 Bronchial Fluid WBC 940 /uL 08/16/22 12:10 Bronchial Fluid RBC 1 10^3/uL 08/16/22 12:10 Bronch Cells Counted 200 08/16/22 12:10 Bronchial Neutrophils 178.00 % (0.9-2.3) H 08/16/22 12:10 Bronchial Lymphocytes 20.00 % (10.71-12.91) H 08/16/22 12:10 Bronchial Diff Comment Yes 08/16/22 12:10 Vancomycin Trough 15.3 ug/mL (10-15) H 08/17/22 20:48 Adenovirus (PCR) Not detected (Not Detected) 08/08/22 17:27 Coronavirus 229E (PCR) Not detected (NOT DETECT) 08/14/22 09:06 Human Metapneumovir PCR Not detected (Not Detected) 08/08/22 17:27 Influenza A (RT-PCR) Not detected (Not Detected) 08/08/22 17:27 Influenza A (H1) PCR Not detected (Not Detected) 08/08/22 17:27 Influenza A (H3) PCR Not detected (Not Detected) 08/08/22 17:27 Influenza B (RT-PCR) Not detected (Not Detected) 08/08/22 17:27 Parainfluenzae Type 1 Not detected (Not Detected) 08/08/22 17:27 Parainfluenzae Type 2 Not detected (Not Detected) 08/08/22 17:27 Parainfluenzae Type 3 Not detected (Not Detected) 08/08/22 17:27 RSV Ab Comment see note 08/08/22 17:27 Rhinovirus (PCR) Not detected (Not Detected) 08/08/22 17:27 SARS-CoV-2 (PCR) Not detected (NOT DETECT) 08/14/22 09:06 SARS-CoV-2 Ag (Rapid) Negative (Negative) 08/08/22 20:47 Blood Type A Positive 08/12/22 09:10 Rho(D) Type Positive 08/12/22 09:10 Antibody Screen Negative 08/12/22 09:10 Crossmatch See Detail 08/12/22 09:10 Micro: Microbiology 08/18/22 17:00 Stool Lactoferrin - Final Stool Enteric Pathogens (PCR) - Final Parasite Antigen Panel - Final Occult Blood (FIT) - Final 08/16/22 12:10 Gram Stain - Final Lung Right Lower Lobe Bronchoalveolar Lavage Culture - Preliminary A&P Assessment and plan (1) Respiratory failure with hypoxia: Status: Acute (2) ARDS (adult respiratory distress syndrome): Status: Acute (3) Aspiration pneumonia: Status: Acute (4) Gastric bezoar: Status: Acute (5) Severe protein-energy malnutrition: Status: Acute (6) Hx of gastric bypass: Status: Acute (7) Hypoalbuminemia: Status: Chronic (8) Esophageal hiatal hernia: Status: Chronic (9) Grade I diastolic dysfunction: Status: Chronic (10) Hypothyroidism: Status: Chronic Qualifiers: Hypothyroidism type: acquired Qualified Code(s): E03.9 - Hypothyroidism, unspecified (11) UTI due to Klebsiella species: Status: Acute Plan #acute hypoxic respiratory failure secondary to ARDS secondary to aspiration pneumonia/fluid overload #Patient has history of grade 1 diastolic dysfunction-currently +12 L since admission #Hypokalemia -2.4; supplemented today morning #Fever spikes with elevated procal - suspect pneumonia not responding to zosyn -Initially intubated due to aspiration on 08/10/2022-extubated on 08/14/2022 -reintubated 08/16/22 for increasing requirements on high flow nasal cannula - abg 7.53/41/78/34/ 94% on PSV 350/10/30%-we will try PSV today for some time and later SIMV -Patient is very deconditioned and still clinically congested- Will give albumin and lasix 20 mg one dose -off sedation and off pressors-following commands and awake - NIF - 22 -Target MAP 65-Levophed if needed -Currently on Zosyn for aspiration pneumonia as well as UTI 08/08/2022 positive for E. coli as well as Klebsiella; procalcitonin - 2.65 & fever spikes; discontinued Zosyn and started pt on vancomycin and imipenam on 08/16/22 ;since then no fever spikes; -s/p bronchoscopy 08/16/2022 and BAL from [facility]-final cultures pending; MRSA nares negative -Chest x ray shows worsening left lung infiltrates - will repeat trans tracheal cultures -clincally congested but improving overall net +ve 9 we will L since admsision; -Renal functions are good-lasix as needed -Hypokalemia 3.7-closely monitor; Na 141 we will discontinue free water. -Monitor renal function/electrolytes/input output -We will continue to support her respiration using PSV/SIMV mode -We will plan to extubate next 24 to 48 hours -We will start her droxidopa Parkinson syndrome; 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 hydrocortisone maintenance dose for adrenal insufficiency and discontinue fludrocortisone #History of gastric bypass in 2001 #Patient presented with nausea vomiting-with suspected food impaction and large esophageal hiatal hernia which was pushed through EGD on 08/11/2022 #CT abdomen pelvis 08/17/2022-no evidence of obvious obstruction, complex gastric bypass surgery incompletely defined, NGT placed in jejunum -Patient follows up with the surgeon as outpatient-and underwent an endoscopy July 27, 2022-recommended to take small meals-apparently patient is noncompliant -A PICC line has been placed and patient received TPN for nutrition; yesterday NG tube was placed under fluoroscopic guidance and the tip is in duodenum-we will start tube feeding today -It is imperative that if she is noncompliant with her small frequent meals-she is at risk of recurrent aspiration leading to respiratory failure on multiple hospital admissions-so we will obtain general surgery consult when available ICU CHECKLIST: Problem list updated Verbal orders reviewed and signed Analgesia: Fentanyl Glycemic Control: N/A Nutrition: NG feeding Restraint Renewal (within 24 hrs): yes Ulcer Prophylaxis: PPI Chemical Thromboprophylaxis: Prophylaxis: Lovenox Mechanical Thromboprophylaxis: SCD Need for Central line: PICC line for TPN/pressure Need for Dodd catheter: urine output monitoring Critical Care Time (No Overlap): 45 min This patient has a high probability of sudden, clinically significant deterioration, which requires the highest level of physician preparedness to intervene urgently. I managed/supervised life or organ supporting interventions that required frequent physician assessment. I devoted my full attention in the ICU to the direct care of this patient for the period of time indicated above. Time I spent with family or surrogate(s) is included only if the patient was incapable of providing necessary information or participating in decision making. Time devoted to teaching and to any procedures I billed separately is not included. Services Provided: Telemetry review Mechanical Ventilation Hemodynamic interpretation, assessment and management Review and interpretation of CXR Review and interpretation of lab values Review and interpretation of microbiologic data and culture results Review of medications and administration Review and interpretation of Nutrition requirements and management Discussion of management with other consultants and services Clinical update to family members Attestations Medical Necessity Statement*: still intubated requiring mechanical ventilation Time Spent in Patient Care: Greater than 35 minutes (>than 50% of time spent in counselling and/or direct pt care on unit). Critical Care Time: The high probability of a clinically significant, sudden or life threatening deterioration of the patient's [Pulmonary, GI, renal, Infectious] system(s) required my full and direct attention, intervention and personal management. The critical care time is as shown. This time is in addition to time spent performing any reported procedures but includes the following: [x] Data and vital sign review and interpretation [x] Patient assessment, examination and intervention [x] Documentation [x] Medication orders and management Critical Care Time (min): 45 Coding Level of Care Code Acute Glass Cylinder Flanger for Chg Fwd Diagnoses Respiratory failure with hypoxia J96.91 ARDS (adult respiratory distress syndrome) J80 Aspiration pneumonia J69.0 Gastric bezoar T18.2XXA Severe protein-energy malnutrition E43 Hx of gastric bypass Z98.84 Hypoalbuminemia E88.09 Esophageal hiatal hernia K44.9 Grade I diastolic dysfunction I51.89 Hypothyroidism E03.9 Hypothyroidism type: acquired UTI due to Klebsiella species N39.0; B96.89
[2022-08-20 09:46] LABS: ABG PCO2 41.7 mmHg (35-45); ABG PH Result 7.53 (7.35-7.45); Alveolar-Arterial Oxygen Gradi 10.8 mmHg (5-10); Arterial Blood Gas Hematocrit 30.2 % (37-47); Base Excess ABG 10.8 mmol/L (-2.0-2.0); Blood Gas Allen Test Pos; Blood Gas Operator Identificat GD; Blood Gas Sample Site Radial, left; Blood Gas Sample Type Arterial; HCO3 ABG 34.6 mmol/L (22-26); HGB O2 Sat 93.7 % (95-100); Ionized Calcium Level - ABG 1.2 mmol/L (1.1-1.4); Methemoglobin 0.9 % (0.4-1.5); Oxygen Device VENT; Oxygen Saturation ABG 94.5; PO2 ABG 78.8 mmHg (80.0-100.0); Total Hemoglobin 9.9 g/dL (12-16)
--- NOTE | 2022-08-20 09:53 | PC.CHAP ---
Pastoral Care Encounter/Spiritual Assessment Type of Contact [] Declined varnish thinner visit [] Patient/Family/Request visit [] Outpatient visit [] Follow-up visit [] Physician referral [] Code/Alert [x] Routine visit [] Staff referral [] Actively dying [x] Patient sleeping [] Family support [] [] Out of room [] Palliative care [] [] Receiving care in room [] Pre-surgical visit [] Trauma [] Long length of stay [x] ICU visit [] Other: Relational/Emotional Strength [] Patient feels connected with others/family/visitors/staff [] Distress [] Loneliness/isolation [] Abandonment Spirituality of Patient [] Person of Alexandra [] Attends Evangelical of their Alexandra [] Believes in Prayer [] Reads Bible or Zoroastrianism materials [] There are Spiritual issues to be addressed Internal Medicine Doctor Interventions [x] Prayer [] Active listening [] Non-anxious presence [] Spiritual/emotional support [] Crisis/trauma care [] Spiritual counseling [] Bereavement support [] Provided bereavement packet [] Provided Bible/devotional materials [] Provided toy/stuffed animal, coloring book to patient or family member [] Provided Communion [] Anointing/[place] [] Salvation [x] Completed spiritual assessment [] Other: Impact on Illness or Injury [] Angry [] Fearful [] Anxious [] Often cries [] Exhaustion [] Unable to work [] Unable to attend evangelical [] Unable to walk/stand [] Unable to read [] Unable to drive [] Unable to eat/drink [] Unable to sleep [] Unable to be with family [] Patient intubated [] Other: Summary Time spent with patient
[2022-08-20] MEDS: albumin 12.5 GM/250 ML VIAL IV (11:00)
[2022-08-20] MEDS: FUROsemide 10 mg/mL SDV 2mL 20 MG IVP (11:00)
[2022-08-20 12:35] LABS: Glucose Point of Care 95 mg/dL (70-110)
--- NOTE | 2022-08-20 13:38 | P.PN_ITS ---
Subjective Subjective: Seen this morning. No acute events overnight. Hemoglobin 8.7. Potassium 3.7 today, magnesium 1.9. Sodium 141. at bedside. She is following commands today. She is off sedation this morning. Vitals/I&O/Wt Last Vital Signs Temp 98.6 F 08/20/22 04:00 Pulse 96 08/20/22 12:30 Resp 11 L 08/20/22 11:17 BP 118/83 08/20/22 12:30 Pulse Ox 100 08/20/22 12:30 O2 Del Method 08/20/22 08:39 O2 Flow Rate 70 08/16/22 00:00 FiO2 30 08/20/22 11:17 08/19/22 08/20/22 08/20/22 22:59 06:59 14:59 Intake Total 1560.5 / 2265.5 100 / 2365.5 250 / 250 Output Total 1300 / 1300 200 / 1500 Balance 260.5 / 965.5 -100 / 865.5 250 / 250 Physical Exam Narrative: PHYSICAL EXAM: General: lying in bed, sedated and intubated HEENT:NCAT, PERRLA, EOMI Neck: Supple Lungs: Improving breath sounds well Heart: s1/s2, RRR Abd: soft, NT, ND, BS + Normoactive Extremities: No obvious pedal edema bilaterally; improving anasarca over abdominal wall 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 SKIN: Scattered sores and bruises in different stages of healing? LDA: # CVC: Right PICC line 08/15/2022 Urinary Catheter Management: Dodd: Cath Placed During This Visit: yes Reason for Continuing Indwelling Catheter: Accurate Measurement of Urinary Output in Critically Ill Patients Urinary Catheter Date of Insertion: 08/11/22 Urinary Catheter Time of Insertion: 00:20 Data : 08/20/22 03:26 08/20/22 03:26 Micro: Microbiology 08/18/22 17:00 Stool Lactoferrin - Final Stool Enteric Pathogens (PCR) - Final Parasite Antigen Panel - Final C.difficile Toxin B Gene (PCR) - Final Occult Blood (FIT) - Final 08/16/22 12:10 Gram Stain - Final Lung Right Lower Lobe Bronchoalveolar Lavage Culture - Final A&P Assessment and plan (1) Gastric bezoar: Status: Acute (2) Hx of gastric bypass: Status: Acute (3) Severe protein-energy malnutrition: Status: Acute (4) Aspiration pneumonia: Status: Acute (5) Hypernatremia: Status: Acute (6) Respiratory failure with hypoxia: Status: Acute (7) Orthostatic hypotension: Status: Chronic (8) Major depression, recurrent, full remission: Status: Chronic (9) Nausea and vomiting: Status: Acute (10) Post-traumatic stress disorder, chronic: Status: Chronic (11) Generalized anxiety disorder: Status: Chronic (12) Borderline personality disorder: Status: Chronic (13) Minor neurocognitive disorder: Status: Chronic (14) Encounter for long-term opiate analgesic use: Status: Chronic (15) Chronic lumbar radiculopathy: Status: Chronic (16) Status post gastric bypass for obesity: Status: Chronic (17) Frequent falls: Status: Acute (18) Hypoalbuminemia: Status: Chronic (19) Pneumonia: Status: Acute Qualifiers: Pneumonia type: aspiration pneumonia (20) Chronic migraine: Status: Chronic (21) Hypothyroidism: Status: Chronic Qualifiers: Hypothyroidism type: acquired Qualified Code(s): E03.9 - Hypothyroidism, unspecified (22) Grade I diastolic dysfunction: Status: Chronic (23) Esophageal hiatal hernia: Status: Chronic (24) Macrocytic anemia: Status: Chronic (25) DDD (degenerative disc disease), lumbar: Status: Chronic (26) UTI due to Klebsiella species: Status: Acute (27) ARDS (adult respiratory distress syndrome): Status: Acute (28) Fever: Status: Acute Plan #Acute respiratory failure with hypoxia #Vent dependent respiratory failure #Aspiration pneumonia #Nausea, vomiting #Pseudo gastric outlet obstruction #Hypernatremia #Status post gastric bypass surgery for obesity #Grade 1 diastolic dysfunction with generalized anasarca #Severe protein calorie malnutrition #Orthostatic hypotension #Hypothyroidism #Macrocytic anemia chronic #Chronic esophageal hiatal hernia #Gastric bezoar --Initially intubated due to aspiration on 08/10/2022-extubated on 08/14/2022 -Reintubated 08/15/2022 -Continue fentanyl and propofol ? Continue vancomycin and imipenem ? MRSA nares negative. BCx negative to date. repeat Bcx 08/24 also NTD. - BAL report pending. ? Initially had UTI on 08/08/2022 for E. coli and Klebsiella. ? Precedex stop on 08/15/2022 ? Restart fludracortisone and midodrine. ? NG tube that was initially placed was pulled out somehow on 08/13/2022. - NG tube placed under flouro guidance 08/17/2022. - CT Abd pelvis with oral contrast did not show any evidence of bowel obs truction. - Will stop TPN to avoid extra fluid administration. - Start Tube feeds with Jevity.? 10 cc/h will be increased 5 cc every 6 hours with target of 30 cc/h.? Stop free water flushes today as per instructions from pulmonology. ? Long-term due to repeated risk of aspiration secondary to patient's esophageal hernia and generalized deconditioning and critical care polyneuropathy patient may need to have PEG/gastrostomy tube placement with a potential tracheostomy if we are unable to extubate her. ? Continue to wean down oxygen with goal of extubating patient once patient is more euvolemic and oxygen requirements come down -Pulmonology consulted, recommendations appreciated ? We will replete potassium ? Continue nebulization steroids Pulmicort -Psych consulted for patient's paranoia. Consult note pending. - Please see pulm note for further management. -R is nonformulary. Unavailable, stop fludracortisone, continue on hydrocortisone 10 in AM and 5 mg in PM, -Plan for extubation in next 24 to 48 hours. We will stop Lasix today and use as needed. DVT prophylaxis: Lovenox subc 40 daily Attestations Medical Necessity Statement*: Critically ill in ICU Critical Care Time: 35 Coding Level of Care Code Acute Fabric Sourcer for Chg Fwd Diagnoses Gastric bezoar T18.2XXA Hx of gastric bypass Z98.84 Severe protein-energy malnutrition E43 Aspiration pneumonia J69.0 Hypernatremia E87.0 Respiratory failure with hypoxia J96.91 Orthostatic hypotension I95.1 Major depression, recurrent, full remission F33.42 Nausea and vomiting R11.2 Post-traumatic stress disorder, chronic F43.12 Generalized anxiety disorder F41.1 Borderline personality disorder F60.3 Minor neurocognitive disorder G31.84 Encounter for long-term opiate analgesic use Z79.891 Chronic lumbar radiculopathy M54.16 Status post gastric bypass for obesity Z98.84 Frequent falls R29.6 Hypoalbuminemia E88.09 Pneumonia J18.9 Pneumonia type: aspiration pneumonia Chronic migraine Hypothyroidism E03.9 Hypothyroidism type: acquired Grade I diastolic dysfunction I51.89 Esophageal hiatal hernia K44.9 Macrocytic anemia D53.9 DDD (degenerative disc disease), lumbar M51.36 UTI due to Klebsiella species N39.0; B96.89 ARDS (adult respiratory distress syndrome) J80 Fever R50.9
--- NOTE | 2022-08-20 16:34 | PM.PN ---
Subjective Subjective: Patient was seen and examined today. Continues to be on mechanical ventilation, feeding tube was placed by interventional radiology. Having loose bowel movements likely due to tube feeds. Medications: Reviewed: Yes Vitals/I&O/Wt Last Vital Signs Temp 98.6 F 08/20/22 04:00 Pulse 96 08/20/22 14:30 Resp 19 H 08/20/22 14:05 BP 113/76 08/20/22 14:30 Pulse Ox 99 08/20/22 14:30 O2 Del Method 08/20/22 14:05 O2 Flow Rate 70 08/16/22 00:00 FiO2 30 08/20/22 14:05 08/20/22 08/20/22 08/20/22 06:59 14:59 22:59 Intake Total 100 / 2365.5 410 / 410 Output Total 200 / 1500 1200 / 1200 Balance -100 / 865.5 -790 / -790 Physical Exam Narrative: Patient is conscious alert oriented X3 Endotracheal tube in place as well as feeding tube No apparent distress BMI 26 Head and neck examination PERRLA no masses no cervical lymphadenopathy no jaundice Cardiac examination audible S1-S2 no murmurs no gallops no arrhythmias Chest is clear bilateral,abscence of Rhonchi or wheezes,no surgical emphysema Abdomen nontender nondistended soft no organomegaly guarding or rigidity/no signs of peritonitis Urinary Catheter Management: Dodd: Cath Placed During This Visit: yes Reason for Continuing Indwelling Catheter: Accurate Measurement of Urinary Output in Critically Ill Patients Urinary Catheter Date of Insertion: 08/11/22 Urinary Catheter Time of Insertion: 00:20 Data : 08/20/22 03:26 08/20/22 16:00 Micro: Microbiology 08/18/22 17:00 Stool Lactoferrin - Final Stool Enteric Pathogens (PCR) - Final Parasite Antigen Panel - Final C.difficile Toxin B Gene (PCR) - Final Occult Blood (FIT) - Final 08/16/22 12:10 Gram Stain - Final Lung Right Lower Lobe Bronchoalveolar Lavage Culture - Final A&P Assessment and plan (1) Hx of gastric bypass: After history taking physical examination and reviewing the images of the CT scan of the abdomen pelvis , I do not see any internal herniation or evidence of bowel obstruction from bariatric surgery standpoint of view. No indication for surgical intervention at the moment. I would like to see the patient extubated and have speech pathology evaluate for potential oral intake with aspiration precautions. Will follow on the patient's clinical progress Replacement of electrolytes and thiamine to be given empirically Assurance and education All questions have been answered and all concerns have been addressed to patient's satisfaction. 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
[2022-08-20 16:43] LABS: Anion Gap 12.8 (5-19); Blood Urea Nitrogen 12 mg/dL (8-23); Calcium 8.5 mg/dL (8.5-10.5); Carbon Dioxide 34 mmol/L (22-29); Chloride 100 mmol/L (98-107); Glomerular Filtration Rate 225.4 mL/min (90-130); Glucose 91 mg/dL (65-115); Osmolality Calculated 295 mOsm/kg (285-295); Potassium 3.8 mmol/L (3.5-5.1); Sodium 143 mmol/L (136-145)
[2022-08-20 17:16] LABS: Glucose Point of Care 92 mg/dL (70-110)
[2022-08-20 21:26] LABS: Glucose Point of Care 108 mg/dL (70-110)
[2022-08-20] MEDS: enoxaparin 40 mg/0.4 mL Syringe SUBCUT (21:49)
[2022-08-20] MEDS: hydrocortisone 10 mg Tablet 5 MG PO (21:57)
[2022-08-21] VITALS (68 sets, daily range): BP systolic 97–131; BP diastolic 66–91; PULSE 82–100; RESP 16–27; TEMP 36.4–37.4; O2SAT 83–100
[2022-08-21] MEDS: sucralfate 1 gm/10 mL Oral Liq UDC PO ×4 (00:39→17:48)
[2022-08-21] MEDS: chlorhexidine gluconate 4% Btl 118 mL 1 APPLIC TOPICAL (00:40)
--- NOTE | 2022-08-21 01:00 | PC.NURSE ---
Addendum entered by Galina Gutierrez RN 08/21/22 07:00: 75ml fent wasted Original Note: Fentanyl Waste Wasted 75 mls of Fentanyl with DAYAN Mojica.
[2022-08-21] MEDS: ipratropium-albuterol 3 mL Neb INHALATION ×4 (03:15→20:25)
[2022-08-21 04:34] LABS: Anion Gap 11.2 (5-19); Blood Urea Nitrogen 11 mg/dL (8-23); Calcium 8.6 mg/dL (8.5-10.5); Carbon Dioxide 34 mmol/L (22-29); Chloride 99 mmol/L (98-107); Glomerular Filtration Rate 225.4 mL/min (90-130); Glucose 97 mg/dL (65-115); Osmolality Calculated 289 mOsm/kg (285-295); Potassium 4.2 mmol/L (3.5-5.1); Sodium 140 mmol/L (136-145)
[2022-08-21] MEDS: pantoprazole 40 mg SDV IVP ×2 (05:31→17:47)
[2022-08-21] MEDS: levothyroxine 125 mcg Tablet PO (05:53)
[2022-08-21] MEDS: midodrine 5 mg TABLET 10 MG PO ×3 (05:53→17:47)
[2022-08-21] MEDS: hydrocortisone 10 mg Tablet PO (05:53)
--- NOTE | 2022-08-21 06:21 | PC.NURSE ---
Shift Note Frequent safety and comfort rounds continue. Orders and/or nursing care completed as indicated. Patient monitored for response to intervention and treatment(s). Education provided includes oral care and vent management. Patient needs reinforcement teaching. Patient had an uneventful shift, remains intubated vent settings as follows; mode-SIMV, FiO2-30%, VT-350, RR-12, PEEP-5. Jevity tube feeding infusing through nasogastric tube per orders. Dodd catheter drained 500 mls of urine overnight. Rectal tube drained 700 mls of stool overnight. Frequently turned & repositioned patient overnight with assistance from staff. Skin tears noted to bilateral arms, pressure injury noted to sacrum, no other wounds or skin issues noted at this time. Patient is oriented and follows all commands at this time. Will continue to monitor.
[2022-08-21] MEDS: budesonide 0.5 mg/2 mL Neb INHALATION ×2 (07:35→20:25)
--- NOTE | 2022-08-21 07:58 | XRR_ITS ---
PROCEDURE INFORMATION: Exam: XR Chest Exam date and time: 08/21/2022 8:35 AM Age: 62 years old Clinical indication: Condition or disease; Lung condition and disease; Pneumonia TECHNIQUE: Imaging protocol: Radiologic exam of the chest. Views: 1 view. COMPARISON: CR XR chest 1V portable [id number] 08/20/2022 6:50 AM FINDINGS: Tubes, catheters and devices: An endotracheal tube is present with the tip 2.4 cm above the prashant. A nasogastric tube projects on the stomach. The tip of a right arm PICC projects on the SVC. Lungs: Bilateral pulmonary infiltrates are again seen especially in the left lung base. The infiltrates are improving when compared to previous study. Pleural spaces: Unremarkable. No pleural effusion. No pneumothorax. Heart/Mediastinum: Unremarkable. No cardiomegaly. Bones/joints: Unremarkable. XR/XR chest 1V portable [id number] IMPRESSION: Improving bilateral pulmonary infiltrates.
[2022-08-21 08:15] LABS: Glucose Point of Care 115 mg/dL (70-110)
[2022-08-21 08:21] LABS: Basophils % 0.3 %; Eosinophils % 0.1 %; Hematocrit 30.8 % (37.0-47.0); Hemoglobin 9.5 g/dL (11.5-15.3); Lymphocytes # 2.7 10^3/uL (0.8-4.8); Lymphocytes % 18.2 %; Mean Corpuscular HGB Conc 30.8 g/dL (30.0-36.0); Mean Corpuscular Hemoglobin 34.1 pg (28.0-34.0); Mean Corpuscular Volume 110.4 fl (81-99); Mean Platelet Volume 11.9 fL (7.4-10.4); Monocytes # 1.3 10^3/uL (0.2-0.9); Monocytes % 9.1 %; Neutrophils # 10.04 10^3/uL (1.8-7.7); Neutrophils % 68.6 %; Nucleated Red Blood Cells % 0 %; Platelet Count 436 10^3/cmm (130-400); Red Blood Count 2.79 10^6/uL (4.1-5.3); Red Cell Distribution Width 18.1 % (12.1-15.1); White Blood Count 14.7 10^3/uL (4.0-10.0)
--- NOTE | 2022-08-21 08:39 | PM.PN ---
Subjective Subjective: seen at bedside, awake alert, smiling, following commands cxr improving compared to prior days weaning trial going on when pt seen. Vitals/I&O/Wt Last Vital Signs Temp 99.3 F 08/21/22 04:30 Pulse 88 08/21/22 08:23 Resp 21 H 08/21/22 07:39 BP 105/69 08/21/22 06:00 Pulse Ox 99 08/21/22 07:39 O2 Del Method 08/21/22 07:39 O2 Flow Rate 70 08/16/22 00:00 FiO2 30 08/21/22 07:39 08/20/22 08/21/22 08/21/22 22:59 06:59 14:59 Intake Total 833.717 / 1743.717 508 / 2251.717 Output Total 1200 / 2400 Balance 833.717 / 543.717 -692 / -148.283 Physical Exam Narrative: PHYSICAL EXAM: General: lying in bed, intubated, awake and following commands HEENT:NCAT, PERRLA, EOMI Neck: Supple Lungs: Improving breath sounds Heart: s1/s2, RRR Abd: soft, NT, ND, BS + Normoactive Extremities: No obvious pedal edema bilaterally; improving anasarca over abdominal wall 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 LDA: # CVC: Right PICC line 08/15/2022 Urinary Catheter Management: Dodd: Cath Placed During This Visit: yes Reason for Continuing Indwelling Catheter: Accurate Measurement of Urinary Output in Critically Ill Patients Urinary Catheter Date of Insertion: 08/11/22 Urinary Catheter Time of Insertion: 00:20 Data : 08/21/22 03:04 08/21/22 03:04 Micro: Microbiology 08/18/22 17:00 Stool Lactoferrin - Final Stool Enteric Pathogens (PCR) - Final Parasite Antigen Panel - Final C.difficile Toxin B Gene (PCR) - Final Occult Blood (FIT) - Final 08/16/22 12:10 Gram Stain - Final Lung Right Lower Lobe Bronchoalveolar Lavage Culture - Final A&P Assessment and plan (1) Gastric bezoar: Status: Acute (2) Hx of gastric bypass: Status: Acute (3) Severe protein-energy malnutrition: Status: Acute (4) Aspiration pneumonia: Status: Acute (5) Hypernatremia: Status: Acute (6) Respiratory failure with hypoxia: Status: Acute (7) Orthostatic hypotension: Status: Chronic (8) Major depression, recurrent, full remission: Status: Chronic (9) Nausea and vomiting: Status: Acute (10) Post-traumatic stress disorder, chronic: Status: Chronic (11) Generalized anxiety disorder: Status: Chronic (12) Borderline personality disorder: Status: Chronic (13) Minor neurocognitive disorder: Status: Chronic (14) Encounter for long-term opiate analgesic use: Status: Chronic (15) Chronic lumbar radiculopathy: Status: Chronic (16) Status post gastric bypass for obesity: Status: Chronic (17) Frequent falls: Status: Acute (18) Hypoalbuminemia: Status: Chronic (19) Pneumonia: Status: Acute Qualifiers: Pneumonia type: aspiration pneumonia (20) Chronic migraine: Status: Chronic (21) Hypothyroidism: Status: Chronic Qualifiers: Hypothyroidism type: acquired Qualified Code(s): E03.9 - Hypothyroidism, unspecified (22) Grade I diastolic dysfunction: Status: Chronic (23) Esophageal hiatal hernia: Status: Chronic (24) Macrocytic anemia: Status: Chronic (25) DDD (degenerative disc disease), lumbar: Status: Chronic (26) UTI due to Klebsiella species: Status: Acute (27) ARDS (adult respiratory distress syndrome): Status: Acute (28) Fever: Status: Acute Plan #Acute respiratory failure with hypoxia #Vent dependent respiratory failure #Aspiration pneumonia #Nausea, vomiting #Pseudo gastric outlet obstruction #Hypernatremia #Status post gastric bypass surgery for obesity #Grade 1 diastolic dysfunction with generalized anasarca #Severe protein calorie malnutrition #Orthostatic hypotension #Hypothyroidism #Macrocytic anemia chronic #Chronic esophageal hiatal hernia #Gastric bezoar --Initially intubated due to aspiration on 08/10/2022-extubated on 08/14/2022 -Reintubated 08/15/2022 -Continue fentanyl and propofol ? Continue vancomycin and imipenem ? MRSA nares negative. BCx negative to date. repeat Bcx 08/24 also NTD. - BAL report pending. ? Initially had UTI on 08/08/2022 for E. coli and Klebsiella. ? Precedex stop on 08/15/2022 ? Restart fludracortisone and midodrine. ? NG tube that was initially placed was pulled out somehow on 08/13/2022. - NG tube placed under flouro guidance 08/17/2022. - CT Abd pelvis with oral contrast did not show any evidence of bowel obstruction. - Will stop TPN to avoid extra fluid administration. - Continue Tube feeds with Jevity.? 10 cc/h will be increased 5 cc every 6 hours with target of 30 cc/h.? ? Long-term due to repeated risk of aspiration secondary to patient's esophageal hernia and generalized deconditioning and critical care polyneuropathy patient may need to have PEG/gastrostomy tube placement with a potential tracheostomy if we are unable to extubate her. ? Continue to wean down oxygen with goal of extubating patient once patient is more euvolemic and oxygen requirements come down -Pulmonology consulted, recommendations appreciated ? We will replete potassium ? Continue nebulization steroids Pulmicort -Psych consulted for patient's paranoia. Consult note pending. - Please see pulm note for further management. -Northera is nonformulary. Unavailable, stop fludracortisone, continue on hydrocortisone 10 in AM and 5 mg in PM, -Plan for extubation possibly today. DVT prophylaxis: Lovenox subc 40 daily Attestations Medical Necessity Statement*: Critically ill in ICU Critical Care Time: 35 Coding Level of Care Code Acute Corporate Staff Accountant for Chg Fwd Diagnoses Gastric bezoar T18.2XXA Hx of gastric bypass Z98.84 Severe protein-energy malnutrition E43 Aspiration pneumonia J69.0 Hypernatremia E87.0 Respiratory failure with hypoxia J96.91 Orthostatic hypotension I95.1 Major depression, recurrent, full remission F33.42 Nausea and vomiting R11.2 Post-traumatic stress disorder, chronic F43.12 Generalized anxiety disorder F41.1 Borderline personality disorder F60.3 Minor neurocognitive disorder G31.84 Encounter for long-term opiate analgesic use Z79.891 Chronic lumbar radiculopathy M54.16 Status post gastric bypass for obesity Z98.84 Frequent falls R29.6 Hypoalbuminemia E88.09 Pneumonia J18.9 Pneumonia type: aspiration pneumonia Chronic migraine Hypothyroidism E03.9 Hypothyroidism type: acquired Grade I diastolic dysfunction I51.89 Esophageal hiatal hernia K44.9 Macrocytic anemia D53.9 DDD (degenerative disc disease), lumbar M51.36 UTI due to Klebsiella species N39.0; B96.89 ARDS (adult respiratory distress syndrome) J80 Fever R50.9
[2022-08-21 09:14] LABS: ABG PCO2 35.9 mmHg (35-45); ABG PH Result 7.57 (7.35-7.45); Alveolar-Arterial Oxygen Gradi 9.8 mmHg (5-10); Arterial Blood Gas Hematocrit 27.3 % (37-47); Blood Gas Allen Test Pos; Blood Gas Operator Identificat CAK; Blood Gas Sample Site Brachial, left; Blood Gas Sample Type Arterial; Carboxyhemoglobin < 0.0 %THgb (0.4-20.1); HCO3 ABG 32.7 mmol/L (22-26); Ionized Calcium Level - ABG 1.2 mmol/L (1.1-1.4); Oxygen Device VENT; Oxygen Saturation ABG 95.9; PO2 ABG 93.2 mmHg (80.0-100.0); Potassium Level - ABG 3.5 mmol/L (3.5-5.0); Total Hemoglobin 8.9 g/dL (12-16)
[2022-08-21] MEDS: zonisamide 100 MG Capsule 50 MG PO (09:57)
[2022-08-21] MEDS: nystatin 100,000 unit/mL UDC 5 mL 100000 UNIT PO ×4 (09:57→22:01)
[2022-08-21] MEDS: zinc gluconate 50 mg Tablet PO (09:57)
[2022-08-21] MEDS: potassium chloride oral liq 20 mEq/15 mL UDC 40 MEQ PO ×2 (09:57→17:48)
[2022-08-21] MEDS: duloxetine 60 mg Capsule PO (09:58)
[2022-08-21] MEDS: ascorbic acid 500 mg Tablet 1000 MG PO ×2 (09:58→17:44)
[2022-08-21] MEDS: BuSPIRONE 10 mg Tablet 30 MG PO ×2 (09:58→17:47)
--- NOTE | 2022-08-21 10:27 | P.PN_ITS ---
Subjective Subjective: Seen at bedside awake, more alert, following commands, chest x ray showed improving infiltrates tolerating weaning - we will plan to extubate today other labs and imaging reviewed, Medications: Reviewed: Yes Vitals/I&O/Wt Last Vital Signs Temp 99.3 F 08/21/22 04:30 Pulse 88 08/21/22 08:23 Resp 20 H 08/21/22 09:42 BP 105/69 08/21/22 06:00 Pulse Ox 98 08/21/22 09:42 O2 Del Method 08/21/22 07:39 O2 Flow Rate 70 08/16/22 00:00 FiO2 30 08/21/22 09:42 08/20/22 08/21/22 08/21/22 22:59 06:59 14:59 Intake Total 833.717 / 1743.717 508 / 2251.717 Output Total 1200 / 2400 Balance 833.717 / 543.717 -692 / -148.283 Physical Exam Narrative: PHYSICAL EXAM: General: lying in bed, intubated, awake and following commands HEENT:NCAT, PERRLA, EOMI Neck: Supple Lungs: Improving breath sounds Heart: s1/s2, RRR Abd: soft, NT, ND, BS + Normoactive Extremities: No obvious pedal edema bilaterally; improving anasarca over abdominal wall 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 LDA: # CVC: Right PICC line 08/15/2022 Urinary Catheter Management: Dodd: Cath Placed During This Visit: yes Reason for Continuing Indwelling Catheter: Accurate Measurement of Urinary Output in Critically Ill Patients Urinary Catheter Date of Insertion: 08/11/22 Urinary Catheter Time of Insertion: 00:20 Data : 08/21/22 03:04 08/21/22 03:04 Other Labs: Radiology Impressions Head CT 08/08/22 13:35 IMPRESSION: 1. No evidence of intracranial hemorrhage or mass effect. 2. Mild small vessel changes. Mild parenchymal volume loss. 3. No acute intracranial findings. Chest/Abdomen/Pelvis CT 08/08/22 14:46 IMPRESSION: 1. Small LEFT greater than RIGHT pleural effusions with compressive atelectasis in the lung bases. 2. A few patchy hazy ground glass infiltrates in both lower lobes and LEFT greater than RIGHT upper lobes likely infectious or inflammatory. No focal pneumonia. 3. Postoperative changes GE junction with moderate to large esophageal hiatal hernia. Fluid distended thoracic esophagus with air-fluid level. Hiatal hernia appears progressed compared to March 30, 2022 some of which may be due to fluid distention. 4. Diffuse fatty infiltration liver. Hepatomegaly. 5. Diffuse body wall anasarca. 6. Small volume pelvic ascites. 7. Air-fluid level in the bladder likely due to recent instrumentation. 8. No evidence of high-grade small or large bowel obstruction. 9. Chronic compression deformities L1 and L4 unchanged since March 30, 2022. 10. Prior gastric bypass, cholecystectomy, hysterectomy. Upper GI Series 08/10/22 13:59 IMPRESSION: 1. Large hiatal hernia and status post gastric bypass. 2. Favor this large hiatal hernia contains food products, bezoar-like material. 3. Liquid contrast did exit this large hernia but there may be a partial outlet obstruction. None of the food products did exit during this examination. KUB X-Ray 08/11/22 12:05 IMPRESSION: 1. Multiple dilated loops of small bowel in the left upper quadrant. There is gas and stool throughout the majority of the colon. This could reflect small-bowel obstruction or ileus. 2. Bibasilar opacities and bilateral pleural effusions, left greater than right. ADDENDUM: 08/11/22 1414 Findings discussed with MARIA E RAMOS at 08/11/2022 2:12 PM CDT. Fluoroscopy 08/17/22 11:00 IMPRESSION: Uncomplicated placement of 12 [place] nasogastric tube through the gastric pouch into the jejunal portion of the gastrojejunal anastomosis. Abdomen/Pelvis CT 08/17/22 12:57 IMPRESSION: Complex gastric bypass surgery incompletely defined. There is mild dilatation of small bowel as well as normal caliber small bowel. From the tip of the intubation tube distally there is no obstruction to flow of contrast with opacification of colon and rectum. Chest X-Ray 08/21/22 07:58 IMPRESSION: Improving bilateral pulmonary infiltrates. Laboratory Results WBC 14.7 10^3/uL (4.0-10.0) H 08/21/22 03:04 RBC 2.79 10^6/uL (4.1-5.3) L 08/21/22 03:04 Hgb 9.5 g/dL (11.5-15.3) L 08/21/22 03:04 Hct 30.8 % (37.0-47.0) L 08/21/22 03:04 MCV 110.4 fl (81-99) H 08/21/22 03:04 MCH 34.1 pg (28.0-34.0) H 08/21/22 03:04 MCHC 30.8 g/dL (30.0-36.0) 08/21/22 03:04 RDW 18.1 % (12.1-15.1) H 08/21/22 03:04 Plt Count 436 10^3/cmm (130-400) H D 08/21/22 03:04 MPV 11.9 fL (7.4-10.4) H 08/21/22 03:04 Neut % (Auto) 68.6 % 08/21/22 03:04 Lymph % (Auto) 18.2 % 08/21/22 03:04 [place] % (Auto) 9.1 % 08/21/22 03:04 Eos % (Auto) 0.1 % 08/21/22 03:04 Baso % (Auto) 0.3 % 08/21/22 03:04 Neut # (Auto) 10.04 10^3/uL (1.8-7.7) H 08/21/22 03:04 Lymph # (Auto) 2.7 10^3/uL (0.8-4.8) 08/21/22 03:04 [place] # (Auto) 1.3 10^3/uL (0.2-0.9) H 08/21/22 03:04 Eos # (Auto) 0.0 10^3/uL (0.0-0.8) 08/21/22 03:04 Baso # (Auto) 0.0 10^3/uL (0.0-0.1) 08/21/22 03:04 Nucleated RBC % (auto) 0 % 08/21/22 03:04 Total Counted 100 (0-100) 08/19/22 04:44 Atypical Lymphs % 0.0 % (0-5) 08/19/22 04:44 Absolute Neutrophils 6.4 10^3/cmm (1.4-6.5) 08/19/22 04:44 Segmented Neutrophils 58 % 08/19/22 04:44 Abs Segm Neuts (Man) 5.9 10/cmm (1.6-7.1) 08/19/22 04:44 Band Neutrophils 5.0 % 08/19/22 04:44 Abs Band Neuts (Man) 0.5 10^3/cmm (0.0-1.2) 08/19/22 04:44 Absolute Lymphocytes 2.8 10^3/cmm (1.2-3.4) 08/19/22 04:44 Lymphocytes (Manual) 28 % 08/19/22 04:44 Monocytes (Manual) 7.0 % 08/19/22 04:44 Absolute Monocytes 0.7 10^3/cmm (0.1-0.6) H 08/19/22 04:44 Eosinophils (Manual) 0 % 08/19/22 04:44 Absolute Eosinophils 0.0 10^3/cmm (0.0-0.7) 08/19/22 04:44 Basophils (Manual) 0.0 % 08/19/22 04:44 Absolute Basophils 0.0 10^3/cmm (0.0-0.2) 08/19/22 04:44 Metamyelocytes 2.0 % 08/19/22 04:44 Nucleated RBCs # 0.0 /100WBC 08/21/22 03:04 Toxic Vacuolation 1+ H 08/16/22 02:19 Platelet Estimate Normal (Normal) 08/19/22 04:44 Polychromasia 1+ H 08/16/22 02:19 Anisocytosis 2+ H 08/16/22 02:19 Macrocytosis 1+ H 08/19/22 04:44 D-Dimer 0.75 ug/mIFEU (0-0.59) H 08/10/22 04:16 Specimen Type Arterial 08/21/22 09:03 Sample Site Brachial, left 08/21/22 09:03 ABG pH 7.57 (7.35-7.45) H* 08/21/22 09:03 ABG pCO2 35.9 mmHg (35-45) 08/21/22 09:03 ABG pO2 93.2 mmHg (80.0-100.0) 08/21/22 09:03 ABG HCO3 32.7 mmol/L (22-26) H 08/21/22 09:03 ABG O2 Saturation 95.9 08/21/22 09:03 ABG Base Excess 10.0 mmol/L (-2.0-2.0) H 08/21/22 09:03 Oliver Test Pos 08/21/22 09:03 A-a O2 Gradient 9.8 mmHg (5-10) 08/21/22 09:03 Hematocrit 27.3 % (37-47) L 08/21/22 09:03 Hgb O2 Saturation 95.0 % (95-100) 08/21/22 09:03 Carboxyhemoglobin < 0.0 %THgb (0.4-20.1) L 08/21/22 09:03 Methemoglobin 1.0 % (0.4-1.5) 08/21/22 09:03 Total Hemoglobin 8.9 g/dL (12-16) L 08/21/22 09:03 Sodium 137.0 mmol/L (131-143) 08/21/22 09:03 Potassium 3.5 mmol/L (3.5-5.0) 08/21/22 09:03 Glucose 117.0 mg/dL (70-115) H 08/21/22 09:03 Ionized Calcium 1.2 mmol/L (1.1-1.4) 08/21/22 09:03 O2 Delivery Device Vent 08/21/22 09:03 O2 Liters/Min 55.0 % 08/15/22 13:50 FiO2 30.0 % 08/21/22 09:03 Tidal Volume 0.35 08/19/22 17:31 PEEP 5.0 cmH20 08/21/22 09:03 Sanitation Worker Cleaning Equipment ID Cak 08/21/22 09:03 Sodium 140 mmol/L (136-145) 08/21/22 03:04 Potassium 4.2 mmol/L (3.5-5.1) 08/21/22 03:04 Chloride 99 mmol/L (98-107) 08/21/22 03:04 Carbon Dioxide 34 mmol/L (22-29) H 08/21/22 03:04 Anion Gap 11.2 (5-19) 08/21/22 03:04 BUN 11 mg/dL (8-23) 08/21/22 03:04 Creatinine 0.3 mg/dL (0.5-0.9) L 08/21/22 03:04 GFR Calculation 225.4 mL/min (90-130) H 08/21/22 03:04 Glucose 97 mg/dL (65-115) 08/21/22 03:04 POC Glucose 115 mg/dL (70-110) H 08/21/22 07:59 Estimat Average Glucose 59 08/10/22 04:16 Hemoglobin A1c 3.7 % (4.0-6.0) L 08/10/22 04:16 Calculated Osmolality 289 mOsm/kg (285-295) 08/21/22 03:04 Lactic Acid 2.6 mmol/L (0.5-2.2) H 08/08/22 20:25 Lactate 1.4 mmol/L (0.5-2.2) 08/09/22 05:05 Calcium 8.6 mg/dL (8.5-10.5) 08/21/22 03:04 Phosphorus 3.0 mg/dL (2.5-4.5) 08/20/22 03:26 Magnesium 1.9 mg/dL (1.7-2.3) 08/20/22 03:26 Total Bilirubin 0.6 mg/dL (0.15-1.2) 08/20/22 03:26 AST 36 U/L (0-32) H 08/20/22 03:26 ALT 17 U/L (0-33) 08/20/22 03:26 Alkaline Phosphatase 123 U/L (35-105) H 08/20/22 03:26 Troponin T Gen 5 ng/L 28 ng/L (0-10) H 08/10/22 04:16 Troponin T Baseline 25 ng/L (0-10) H 08/08/22 13:48 Troponin T 120 Minute 24.05 ng/L (0-10) H 08/08/22 15:33 Delta Troponin T -0.95 ABS# (0-10) L 08/08/22 15:33 Troponin T Hi Sens 6Hr 25.69 ng/L (0-10) H 08/09/22 05:05 Troponin T Hi Sens 6Hr Delta 0.69 ng/L (0-12) 08/09/22 05:05 C-Reactive Protein 9.4 mg/L (0.0-4.9) H 08/08/22 13:48 NT-Pro-B Natriuret Pep 807 pg/mL (0-125) H 08/08/22 13:48 Total Protein 4.2 g/dL (6.6-8.7) L 08/20/22 03:26 Albumin 2.3 g/dL (3.5-5.2) L 08/20/22 03:26 Globulin 1.9 g/dL (1.3-4.6) 08/20/22 03:26 Triglycerides 109 mg/dL (0-150) 08/10/22 04:16 Cholesterol 66 mg/dL (0-200) 08/10/22 04:16 LDL Cholesterol, Calc 34 mg/dL (50-129) L 08/10/22 04:16 Total VLDL Cholesterol 22 mg/dL (0-30) 08/10/22 04:16 HDL Cholesterol 10 mg/dL (60-100) L 08/10/22 04:16 Cholesterol/HDL Ratio 6.60 mg/dL (0.0-4.40) H 08/10/22 04:16 Procalcitonin 2.36 ng/mL (0-0.5) H 08/15/22 21:19 TSH 0.49 uIU/mL (0.27-4.20) 08/08/22 13:48 Random Cortisol 25.42 ug/dL (2.47-19.5) H 08/11/22 03:45 Urine Color Yellow (Yellow) 08/08/22 17:23 Urine Appearance Hazy (CLEAR) A 08/08/22 17:23 Urine pH 6 (5-7) 08/08/22 17:23 Ur Specific [place] 1.000 (1.005-1.030) L 08/08/22 17:23 Urine Protein Neg (Negative) 08/08/22 17:23 Urine Glucose (UA) Norm (Normal) 08/08/22 17:23 Urine Ketones Negative (Negative) 08/08/22 17:23 Urine Blood Neg (Negative) 08/08/22 17:23 Urine Nitrate Negative (Negative) 08/08/22 17:23 Urine Bilirubin Neg (Negative) 08/08/22 17:23 Urine Urobilinogen 1 mg/dL (Negative) H 08/08/22 17:23 Ur Leukocyte Esterase 1+ (Negative) H 08/08/22 17:23 Urine RBC 0-4 /hpf (0-2) H 08/08/22 17:23 Urine WBC 5-10 /hpf (0-5) H 08/08/22 17:23 Ur Squamous Epith Cells 0-4 /hpf (0-5) H 08/08/22 17:23 Amorphous Sediment Not Reportable 08/08/22 17:23 Urine Bacteria 4+ /hpf (NONE) H 08/08/22 17:23 RSV Nasal Swab Not detected (Not Detected) 08/08/22 17:27 RSV Nasal Swab Int Cntl Not detected (Not Detected) 08/08/22 17:27 Bronch Specimen Source Right lower lobe 08/16/22 12:10 Bronchial Fluid Color Colorless 08/16/22 12:10 Bronchial Fluid Appearance Clear (CLEAR) 08/16/22 12:10 Bronchial Fluid WBC 940 /uL 08/16/22 12:10 Bronchial Fluid RBC 1 10^3/uL 08/16/22 12:10 Bronch Cells Counted 200 08/16/22 12:10 Bronchial Neutrophils 178.00 % (0.9-2.3) H 08/16/22 12:10 Bronchial Lymphocytes 20.00 % (10.71-12.91) H 08/16/22 12:10 Bronchial Diff Comment Yes 08/16/22 12:10 Vancomycin Trough 15.3 ug/mL (10-15) H 08/17/22 20:48 Adenovirus (PCR) Not detected (Not Detected) 08/08/22 17:27 Coronavirus 229E (PCR) Not detected (NOT DETECT) 08/14/22 09:06 Human Metapneumovir PCR Not detected (Not Detected) 08/08/22 17:27 Influenza A (RT-PCR) Not detected (Not Detected) 08/08/22 17:27 Influenza A (H1) PCR Not detected (Not Detected) 08/08/22 17:27 Influenza A (H3) PCR Not detected (Not Detected) 08/08/22 17:27 Influenza B (RT-PCR) Not detected (Not Detected) 08/08/22 17:27 Parainfluenzae Type 1 Not detected (Not Detected) 08/08/22 17:27 Parainfluenzae Type 2 Not detected (Not Detected) 08/08/22 17:27 Parainfluenzae Type 3 Not detected (Not Detected) 08/08/22 17:27 RSV Ab Comment see note 08/08/22 17:27 Rhinovirus (PCR) Not detected (Not Detected) 08/08/22 17:27 SARS-CoV-2 (PCR) Not detected (NOT DETECT) 08/14/22 09:06 SARS-CoV-2 Ag (Rapid) Negative (Negative) 08/08/22 20:47 Blood Type A Positive 08/12/22 09:10 Rho(D) Type Positive 08/12/22 09:10 Antibody Screen Negative 08/12/22 09:10 Crossmatch See Detail 08/12/22 09:10 Micro: Microbiology 08/18/22 17:00 Stool Lactoferrin - Final Stool Enteric Pathogens (PCR) - Final Parasite Antigen Panel - Final C.difficile Toxin B Gene (PCR) - Final Occult Blood (FIT) - Final 08/16/22 12:10 Gram Stain - Final Lung Right Lower Lobe Bronchoalveolar Lavage Culture - Final A&P Assessment and plan (1) Respiratory failure with hypoxia: Status: Acute (2) ARDS (adult respiratory distress syndrome): Status: Acute (3) Aspiration pneumonia: Status: Acute (4) Gastric bezoar: Status: Acute (5) Severe protein-energy malnutrition: Status: Acute (6) Hx of gastric bypass: Status: Acute (7) Hypoalbuminemia: Status: Chronic (8) Esophageal hiatal hernia: Status: Chronic (9) Grade I diastolic dysfunction: Status: Chronic (10) Hypothyroidism: Status: Chronic Qualifiers: Hypothyroidism type: acquired Qualified Code(s): E03.9 - Hypothyroidism, unspecified Plan #acute hypoxic respiratory failure secondary to ARDS secondary to aspiration pneumonia/fluid overload #Patient has history of grade 1 diastolic dysfunction-currently +12 L since admission #Hypokalemia -2.4; supplemented today morning #Fever spikes with elevated procal - suspect pneumonia not responding to zosyn -Initially intubated due to aspiration on 08/10/2022-extubated on 08/14/2022 -reintubated 08/16/22 for increasing requirements on high flow nasal cannula - abg 7.57/35/93/32/95% on PSV 350/5/30%-improving chest x ray infiltrates - we will plan to extubate today -Patient is very deconditioned -off sedation and off pressors-following commands and awake - NIF - -Target MAP 65-Levophed if needed -previously on on Zosyn for aspiration pneumonia as well as UTI 08/08/2022 positive for E. coli as well as Klebsiella; later procalcitonin - 2.65 & fever spikes on 08/17/22- discontinued Zosyn and started pt on vancomycin and imipenam on 08/16/22 ;since then no fever spikes; complete 7 days -s/p bronchoscopy 08/16/2022 and BAL from [facility]-final cultures negative; MRSA nares negative -clincally improving -Renal functions are good-lasix as needed -Hypokalemia 4.2-closely monitor; Na 140. 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 hydrocortisone maintenance dose for adrenal insufficiency and discontinue fludrocortisone #History of gastric bypass in 2001 #Patient presented with nausea vomiting-with suspected food impaction and large esophageal hiatal hernia which was pushed through EGD on 08/11/2022 #CT abdomen pelvis 08/17/2022-no evidence of obvious obstruction, complex gastric bypass surgery incompletely defined, NGT placed in jejunum -Patient follows up with the surgeon as outpatient-and underwent an endoscopy July 27, 2022-recommended to take small meals-apparently patient is noncompliant -currently feeding through NG tube -we will do swallow evaluation after extubation - appreciate general surgery consult ICU CHECKLIST: Problem list updated Verbal orders reviewed and signed Analgesia: NA Glycemic Control: N/A Nutrition: Held for possible extubation Restraint Renewal (within 24 hrs): yes Ulcer Prophylaxis: PPI Chemical Thromboprophylaxis: Prophylaxis: Lovenox Mechanical Thromboprophylaxis: SCD Need for Central line: PICC line for TPN - may discontinue if she passes swallow evaluation Need for Dodd catheter: urine output monitoring Critical Care Time (No Overlap): 45 min This patient has a high probability of sudden, clinically significant deterioration, which requires the highest level of physician preparedness to intervene urgently. I managed/supervised life or organ supporting interventions that required frequent physician assessment. I devoted my full attention in the ICU to the direct care of this patient for the period of time indicated above. Time I spent with family or surrogate(s) is included only if the patient was incapable of providing necessary information or participating in decision making. Time devoted to teaching and to any procedures I billed separately is not included. Services Provided: Telemetry review Mechanical Ventilation Hemodynamic interpretation, assessment and management Review and interpretation of CXR Review and interpretation of lab values Review and interpretation of microbiologic data and culture results Review of medications and administration Review and interpretation of Nutrition requirements and management Discussion of management with other consultants and services Clinical update to family members Attestations Medical Necessity Statement*: still intubated requiring mechanical ventilation - being evaluated for extubation Time Spent in Patient Care: Greater than 35 minutes (>than 50% of time spent in counselling and/or direct pt care on unit) . Critical Care Time: The high probability of a clinically significant, sudden or life threatening deterioration of the patient's [Pulmonary, GI, renal, Infectious] system(s) required my full and direct attention, intervention and personal management. The critical care time is as shown. 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
[2022-08-21] MEDS: vancomycin 1,000 MG in sodium chloride 0.9% 250 ML 250 MG IV (10:52)
[2022-08-21 12:32] LABS: Glucose Point of Care 87 mg/dL (70-110)
[2022-08-21 16:16] LABS: Anion Gap 8.9 (5-19); Blood Urea Nitrogen 10 mg/dL (8-23); Calcium 8.6 mg/dL (8.5-10.5); Carbon Dioxide 33 mmol/L (22-29); Chloride 100 mmol/L (98-107); Glomerular Filtration Rate 225.4 mL/min (90-130); Glucose 84 mg/dL (65-115); Osmolality Calculated 284 mOsm/kg (285-295); Potassium 3.9 mmol/L (3.5-5.1); Sodium 138 mmol/L (136-145)
[2022-08-21 18:14] LABS: Glucose Point of Care 104 mg/dL (70-110)
[2022-08-21 20:05] LABS: Glucose Point of Care 84 mg/dL (70-110)
[2022-08-21 21:53] LABS: Vancomycin Trough 25.3 ug/mL (10-15)
[2022-08-21] MEDS: enoxaparin 40 mg/0.4 mL Syringe SUBCUT (22:00)
[2022-08-21] MEDS: hydrocortisone 10 mg Tablet 5 MG PO (22:01)
--- NOTE | 2022-08-21 22:05 | PC.NURSE ---
Critical Lab Result Patient vanc trough 25.3, informed pharmacist on duty who gave orders to hold evening dose vancomycin.
[2022-08-22] VITALS (62 sets, daily range): BP systolic 95–134; BP diastolic 65–88; PULSE 78–108; RESP 17–30; TEMP 35.8–37.1; O2SAT 84–100
[2022-08-22] MEDS: sucralfate 1 gm/10 mL Oral Liq UDC PO ×5 (00:16→23:04)
[2022-08-22] MEDS: chlorhexidine gluconate 4% Btl 118 mL 1 APPLIC TOPICAL (00:16)
--- NOTE | 2022-08-22 01:19 | PC.PHAR ---
Pharmacokinetic dosing service Date: 08/22/22 Time: 011 Patient: Floor: Weight: 63.911 Kilograms Vancomycin single level analysis: Current dose being given: mg Current dosing interval: hrs Current infusion time (hrs): 1 Single level Trough Data: Trough level obtained: 25.3 mcg/ml Timing of trough - # of hrs before next dose: 1 Hrs Desired peak: 40 mcg/ml Desired trough: 15 mcg/ml Diagnosis: Relevant medical/social history: Cultures and sensitivities: Other labs: Estimated PK Parameters: New rate constant (vince): 0.048 hr-1 Half-life: 14.44 Hours Vd from levels: 57.52 Liters (0.7 L/kg) CLvanco=?? 2.761 L/hr Estimated New Dose and Interval Recommended dose: 1512.8 mg Recommended interval: 21.4 Hrs Patient response: Patient is responding to treatment [yes/no] wbc decreasing, S/SX reduced [yes/no] Renal function is stable/unstable Recommendations: Give Vancomycin 1000 mg q 18 hrs. Infuse over 1 hrs Expected Cpeak: 29.3 mcg/mL Expected Ctrough: 13.0 mcg/mL AUC 0-24 /TRUDI Data: TRUDI 0.5 mcg/mL:?? AUC/TRUDI:? 965.8 TRUDI 1.0 mcg/mL:?? AUC/TRUDI:? 482.9 Recommended labs and intervals: Measure Bun and Scr 3 times/week. Renal dosing of other antibiotics (review renal dosing of other medications and list guidelines here): Thank you for the consult, will continue to follow. Signature:
Elsa Vicente [facility]
[2022-08-22] MEDS: ipratropium-albuterol 3 mL Neb INHALATION ×4 (03:39→20:00)
[2022-08-22 03:48] LABS: Basophils # 0.1 10^3/uL (0.0-0.1); Basophils % 0.4 %; Eosinophils % 0.1 %; Hematocrit 27.7 % (37.0-47.0); Hemoglobin 8.9 g/dL (11.5-15.3); Lymphocytes # 2.3 10^3/uL (0.8-4.8); Lymphocytes % 17.8 %; Mean Corpuscular HGB Conc 32.1 g/dL (30.0-36.0); Mean Corpuscular Hemoglobin 34.8 pg (28.0-34.0); Mean Corpuscular Volume 108.2 fl (81-99); Mean Platelet Volume 11.3 fL (7.4-10.4); Monocytes # 1.2 10^3/uL (0.2-0.9); Monocytes % 9.6 %; Neutrophils # 8.69 10^3/uL (1.8-7.7); Nucleated Red Blood Cells % 0 %; Platelet Count 427 10^3/cmm (130-400); Red Blood Count 2.56 10^6/uL (4.1-5.3); White Blood Count 12.8 10^3/uL (4.0-10.0)
[2022-08-22] MEDS: vancomycin 1,000 MG in sodium chloride 0.9% 250 ML 250 MG IV (04:13)
[2022-08-22 04:16] LABS: Anion Gap 9.8 (5-19); Blood Urea Nitrogen 9 mg/dL (8-23); Calcium 8.5 mg/dL (8.5-10.5); Carbon Dioxide 32 mmol/L (22-29); Chloride 104 mmol/L (98-107); Glomerular Filtration Rate 225.4 mL/min (90-130); Glucose 87 mg/dL (65-115); Osmolality Calculated 292 mOsm/kg (285-295); Potassium 3.8 mmol/L (3.5-5.1); Sodium 142 mmol/L (136-145)
[2022-08-22] MEDS: midodrine 5 mg TABLET 10 MG PO ×3 (05:13→17:31)
[2022-08-22] MEDS: hydrocortisone 10 mg Tablet PO (05:13)
[2022-08-22] MEDS: levothyroxine 125 mcg Tablet PO (05:13)
[2022-08-22] MEDS: pantoprazole 40 mg SDV IVP ×2 (05:13→17:32)
--- NOTE | 2022-08-22 06:47 | PC.NURSE ---
Shift Note Frequent safety and comfort rounds continue. Orders and/or nursing care completed as indicated. Patient monitored for response to intervention and treatment(s). Education provided includes oxygen requirements. Patient needs reinforcement teaching. Patient had an uneventful shift, remains alert & oriented on 2LNC. Dodd catheter drained 550 mls of urine and rectal tube drained 50 mls of stool overnight. Patient denied reports of pain overnight. Frequently turned and repositioned patient throughout shift with assistance from staff. Skin tears noted to bilateral arms and pressure injury noted to sacrum, please see wound assessment for details. Will continue to monitor.
--- NOTE | 2022-08-22 06:54 | PC.NURSE ---
New Orders Received Dr. Ortiz rounded on patient and gave verbal orders to have lab draw vitamin B1 and B12 lab levels.
[2022-08-22 07:11] LABS: Glucose Point of Care 97 mg/dL (70-110)
[2022-08-22] MEDS: budesonide 0.5 mg/2 mL Neb INHALATION ×2 (07:43→20:00)
[2022-08-22 08:30] LABS: Vitamin B12 > 2000 pg/mL (232-1245)
[2022-08-22] MEDS: BuSPIRONE 10 mg Tablet 30 MG PO ×2 (08:40→17:30)
[2022-08-22] MEDS: duloxetine 60 mg Capsule PO (08:41)
[2022-08-22] MEDS: zonisamide 100 MG Capsule 50 MG PO (08:47)
[2022-08-22] MEDS: zinc gluconate 50 mg Tablet PO (08:48)
[2022-08-22] MEDS: ascorbic acid 500 mg Tablet PO ×2 (08:49→17:30)
[2022-08-22] MEDS: potassium chloride oral liq 20 mEq/15 mL UDC 40 MEQ PO ×2 (08:51→17:31)
[2022-08-22] MEDS: nystatin 100,000 unit/mL UDC 5 mL 100000 UNIT PO ×4 (08:52→20:38)
[2022-08-22] MEDS: multivitamin therapeutic Tablet 1 TAB PO (08:56)
[2022-08-22] MEDS: thiamine 100 mg Tablet PO (08:56)
[2022-08-22] MEDS: FUROsemide 40 mg Tablet PO (09:08)
[2022-08-22 10:10] LABS: Iron 31 ug/dL (37-145); Percent Saturation 40.7 % (20-50); Total Iron Binding Capacity 76 mcg/dl; Unsaturated Iron Binding 45 ug/dL (112-347)
[2022-08-22 10:55] LABS: Glucose Point of Care 90 mg/dL (70-110)
--- NOTE | 2022-08-22 14:32 | P.PN_ITS ---
Subjective Subjective: Hospital course, labs appreciated. Examination patient lying comfortably in bed with at bedside. Working with physical therapy mildly. Has NG tube in place. Saturating well on 2 L. Patient is awake and alert able to complete conversation. Has remained hemodynamically stable and afebrile. Medications: Reviewed: Yes Vitals/I&O/Wt Last Vital Signs Temp 98.1 F 08/22/22 07:00 Pulse 97 08/22/22 12:00 Resp 23 H 08/22/22 12:00 BP 110/80 08/22/22 12:00 Pulse Ox 100 08/22/22 12:00 O2 Del Method 08/22/22 07:46 O2 Flow Rate 2 08/22/22 07:46 FiO2 30 08/21/22 09:42 08/21/22 08/22/22 08/22/22 22:59 06:59 14:59 Intake Total 200 / 550 450 / 1000 500 / 500 Output Total 800 / 800 600 / 1400 Balance -600 / -250 -150 / -400 500 / 500 Physical Exam Narrative: Constitutional: AAOx3, anxious, chronically ill-appearing, physical deconditioning HEENT: Bitemporal wasting, extraocular movements intact, moist mucous membranes Neck: Supple Respiratory: Bibasilar crackles, no wheezes, no accessory muscle use Cardiovascular: Regular rate and rhythm, no gallops or rubs Abdomen: Soft, nontender, doughy texture, positive bowel sounds Extremities: Trace edema bilaterally in lower extremities, muscle wasting noted Skin: Scattered sores and bruises in different stages of healing with iatrogenic changes noted to the upper extremities in particular from blood draws Neuro: Speech clear, face symmetric, moves all extremities, no involuntary movements noted Psych: Flat affect Urinary Catheter Management: Dodd: Cath Placed During This Visit: yes Reason for Continuing Indwelling Catheter: Accurate Measurement of Urinary Output in Critically Ill Patients Urinary Catheter Date of Insertion: 08/11/22 Urinary Catheter Time of Insertion: 00:20 Data : 08/22/22 02:51 08/22/22 02:51 Micro: Microbiology 08/20/22 15:21 Gram Stain - Final Sputum - Endotracheal Tube Aspirate Sputum Culture - Final A&P Assessment and plan (1) Respiratory failure with hypoxia: Secondary to aspiration pneumonitis. Keep saturation over 88%. Sputum cultures so far negative. Cultures from bronch negative. MRSA negative. Patient has had antibiotics for more than 1 week. Hold off on vancomycin. We will continue with plan to finish a 7-day course. Aggressive pulmonary toilet with incentive spirometry and flutter valve. Status: Acute (2) Nausea and vomiting: Most likely secondary to noncompliant with dietary intake in setting of post gastric bypass status leading to extensive food product collection at the junction causing pseudoobstruction of distal esophagus. Follows up with Dr. Ortiz as an outpatient. Post gastric bypass surgery more than 20 years ago. Most recent endoscopy in July 2022 which did not show any concern for hiatal hernia along with healing gastric ulcers. Nausea and vomiting currently secondary to extensive food products, bezoar like material seen in the upper GI series along with dilated distal esophagus versus hiatal hernia. Post EGD on 08/11. Food particles pushed through the junction. Protonix 40 mg IV twice daily, Carafate before meals and at bedtime. LFTs have at baseline. Bilirubin around 1.5. Seems to be at baseline. Postcholecystectomy. Continue with NG tube placement and tube feedings given severe malnutrition. Restart tube feeds at 30 cc/h. Continue swallow evaluation. Clear liquid diet for now. Will check modified barium swallow and upper GI series for further evaluation going forward. Status: Acute (3) Pneumonia: Treatment as #1. Status: Acute Qualifiers: Pneumonia type: aspiration pneumonia (4) Severe protein-energy malnutrition: With A1c of 3.7, total cholesterol of 66. In setting of history of gastric bypass. Continue with tube feeds with Jevity at 30 cc/h. Dietitian consult. High chances of refeeding syndrome we will continue to monitor magnesium, phosphorus, calcium. Most likely patient will need to be discharged on tube feeding to regain nutrition and then transition over to oral diet gradually. Status: Acute (5) Hypernatremia: Resolved. Status: Acute (6) Status post gastric bypass for obesity: Supposed to eat frequent small meals but as evidenced by what she ate in the emergency room I think she probably eats more volume than she should at times resulting in frequent vomiting in addition to impact from reflux issues. Has seen Dr. Ortiz on an outpatient basis for a while. Status: Chronic (7) Grade I diastolic dysfunction: With diffuse body wall anasarca. Described pulmonary effusions presently felt to likely be secondary to aspiration. Has recently been started on diuretic therapy though it was held at discharge earlier this week after stay with almost 8 L negative fluid balance and someone with known orthostatic hypotension and frequent falls. Echocardiogram within the last 10 days showed an ejection fraction of 65%. Continue to monitor intake versus output. Repeat Lasix 40 mg p.o. once. In system patient is around 9 L negative but appears euvolemic currently. Status: Chronic (8) Orthostatic hypotension: Chronic diagnosis, follows with Dr. Pack. He is on midodrine. Not on Northera currently which was recently prescribed. Review of prior discharge summary shows that fludrocortisone was discontinued earlier this week. Cortisol level elevated. Not sure of diagnosis of adrenal insufficiency. Most likely patient not getting Northera as an outpatient as still awaiting prior authorization. Change dose of hydrocortisone to 5 mg twice daily. Status: Chronic (9) Hypothyroidism: On chronic levothyroxine Status: Chronic Qualifiers: Hypothyroidism type: acquired Qualified Code(s): E03.9 - Hypothyroidism, unspecified (10) Macrocytic anemia: Status: Chronic (11) Esophageal hiatal hernia: Status: Chronic (12) Gastric bezoar: Status: Acute Plan Analgesia: Tylenol as needed Glycemic control: Not needed Nutrition: Tube feeds with Jevity. Dietitian consult CODE STATUS: Discussed in detail with patient. She wants to remain full code for now. PUD prophylaxis: Protonix DVT prophylaxis: Lovenox 40 mg daily. Discharge planning: SNF versus home with home health once medically stable. Physical therapy evaluation. Most likely patient will need SNF placement for further rehabitation given severe physical deconditioning. Continue with care at ICU care. Guarded prognosis given severe protein energy malnutrition. Care discussed in detail with patient's spouse at bedside. This documentation was created by [employer] management technician software. Every effort was made to ensure accuracy of management technician. Any obvious errors or omissions should be clarified with the author of the document. Attestations Medical Necessity Statement*: Requires further hospitalization for management of hypoxic respiratory failure, postextubation within last 24 hours for aspiration pneumonitis in setting of gastric bezoar in post gastric bypass patient. Time Spent in Patient Care: Greater than 35 minutes Coding Level of Care Code Acute Log Deckman for [facility] Fwd Diagnoses Respiratory failure with hypoxia J96.91 Nausea and vomiting R11.2 Pneumonia J18.9 Pneumonia type: aspiration pneumonia Severe protein-energy malnutrition E43 Hypernatremia E87.0 Status post gastric bypass for obesity Z98.84 Grade I diastolic dysfunction I51.89 Orthostatic hypotension I95.1 Hypothyroidism E03.9 Hypothyroidism type: acquired Macrocytic anemia D53.9 Esophageal hiatal hernia K44.9 Gastric bezoar T18.2XXA
--- NOTE | 2022-08-22 15:20 | P.PN_ITS ---
Subjective Subjective: -Seen Ms. Bassett at bedside -Successfully extubated to 2 L nasal cannula yesterday -Awake alert and following commands-not in respiratory distress -She had a bedside swallow evaluation yesterday-she was recommended to have full liquid diet and there was no overt aspiration with soft food -She was seen eating Jell-O and small quantities of soft food and speech therapy to follow I will recommend about advancing the diet -Other labs and imaging reviewed-vancomycin trough levels are high-we can di scontinue vancomycin stop imipenem after tomorrow's dose Medications: Reviewed: Yes Vitals/I&O/Wt Last Vital Signs Temp 98.1 F 08/22/22 07:00 Pulse 94 08/22/22 14:00 Resp 23 H 08/22/22 12:00 BP 110/80 08/22/22 12:00 Pulse Ox 100 08/22/22 12:00 O2 Del Method 08/22/22 07:46 O2 Flow Rate 2 08/22/22 07:46 FiO2 30 08/21/22 09:42 08/22/22 08/22/22 08/22/22 06:59 14:59 22:59 Intake Total 450 / 1000 900 / 900 Output Total 600 / 1400 1100 / 1100 Balance -150 / -400 -200 / -200 Physical Exam Narrative: PHYSICAL EXAM: General: lying in bed, intubated, awake and following commands HEENT:NCAT, PERRLA, EOMI Neck: Supple Lungs: Improving breath sounds Heart: s1/s2, RRR Abd: soft, NT, ND, BS + Normoactive Extremities: No obvious pedal edema bilaterally; improving anasarca over abdominal wall [employer]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 LDA: # CVC: Right PICC line 08/15/2022 Urinary Catheter Management: Dodd: Cath Placed During This Visit: yes Reason for Continuing Indwelling Catheter: Accurate Measurement of Urinary Output in Critically Ill Patients Urinary Catheter Date of Insertion: 08/11/22 Urinary Catheter Time of Insertion: 00:20 Data : 08/22/22 02:51 08/22/22 02:51 Other Labs: Radiology Impressions Head CT 08/08/22 13:35 IMPRESSION: 1. No evidence of intracranial hemorrhage or mass effect. 2. Mild small vessel changes. Mild parenchymal volume loss. 3. No acute intracranial findings. Chest/Abdomen/Pelvis CT 08/08/22 14:46 IMPRESSION: 1. Small LEFT greater than RIGHT pleural effusions with compressive atelectasis in the lung bases. 2. A few patchy hazy ground glass infiltrates in both lower lobes and LEFT greater than RIGHT upper lobes likely infectious or inflammatory. No focal pneumonia. 3. Postoperative changes GE junction with moderate to large esophageal hiatal hernia. Fluid distended thoracic esophagus with air-fluid level. Hiatal hernia appears progressed compared to March 30, 2022 some of which may be due to fluid distention. 4. Diffuse fatty infiltration liver. Hepatomegaly. 5. Diffuse body wall anasarca. 6. Small volume pelvic ascites. 7. Air-fluid level in the bladder likely due to recent instrumentation. 8. No evidence of high-grade small or large bowel obstruction. 9. Chronic compression deformities L1 and L4 unchanged since March 30, 2022. 10. Prior gastric bypass, cholecystectomy, hysterectomy. Upper GI Series 08/10/22 13:59 IMPRESSION: 1. Large hiatal hernia and status post gastric bypass. 2. Favor this large hiatal hernia contains food products, bezoar-like material. 3. Liquid contrast did exit this large hernia but there may be a partial outlet obstruction. None of the food products did exit during this examination. KUB X-Ray 08/11/22 12:05 IMPRESSION: 1. Multiple dilated loops of small bowel in the left upper quadrant. There is gas and stool throughout the majority of the colon. This could reflect small-bowel obstruction or ileus. 2. Bibasilar opacities and bilateral pleural effusions, left greater than right. ADDENDUM: 08/11/22 1414 Findings discussed with MARIA E RAMOS at 08/11/2022 2:12 PM CDT. Fluoroscopy 08/17/22 11:00 IMPRESSION: Uncomplicated placement of 12 [place] nasogastric tube through the gastric pouch into the jejunal portion of the gastrojejunal anastomosis. Abdomen/Pelvis CT 08/17/22 12:57 IMPRESSION: Complex gastric bypass surgery incompletely defined. There is mild dilatation of small bowel as well as normal caliber small bowel. From the tip of the intubation tube distally there is no obstruction to flow of contrast with opacification of colon and rectum. Chest X-Ray 08/21/22 07:58 IMPRESSION: Improving bilateral pulmonary infiltrates. Laboratory Results WBC 12.8 10^3/uL (4.0-10.0) H 08/22/22 02:51 RBC 2.56 10^6/uL (4.1-5.3) L 08/22/22 02:51 Hgb 8.9 g/dL (11.5-15.3) L 08/22/22 02:51 Hct 27.7 % (37.0-47.0) L 08/22/22 02:51 MCV 108.2 fl (81-99) H 08/22/22 02:51 MCH 34.8 pg (28.0-34.0) H 08/22/22 02:51 MCHC 32.1 g/dL (30.0-36.0) 08/22/22 02:51 RDW 18.0 % (12.1-15.1) H 08/22/22 02:51 Plt Count 427 10^3/cmm (130-400) H 08/22/22 02:51 MPV 11.3 fL (7.4-10.4) H 08/22/22 02:51 Neut % (Auto) 68.0 % 08/22/22 02:51 Lymph % (Auto) 17.8 % 08/22/22 02:51 [place] % (Auto) 9.6 % 08/22/22 02:51 Eos % (Auto) 0.1 % 08/22/22 02:51 Baso % (Auto) 0.4 % 08/22/22 02:51 Neut # (Auto) 8.69 10^3/uL (1.8-7.7) H 08/22/22 02:51 Lymph # (Auto) 2.3 10^3/uL (0.8-4.8) 08/22/22 02:51 [place] # (Auto) 1.2 10^3/uL (0.2-0.9) H 08/22/22 02:51 Eos # (Auto) 0.0 10^3/uL (0.0-0.8) 08/22/22 02:51 Baso # (Auto) 0.1 10^3/uL (0.0-0.1) 08/22/22 02:51 Nucleated RBC % (auto) 0 % 08/22/22 02:51 Total Counted 100 (0-100) 08/19/22 04:44 Atypical Lymphs % 0.0 % (0-5) 08/19/22 04:44 Absolute Neutrophils 6.4 10^3/cmm (1.4-6.5) 08/19/22 04:44 Segmented Neutrophils 58 % 08/19/22 04:44 Abs Segm Neuts (Man) 5.9 10/cmm (1.6-7.1) 08/19/22 04:44 Band Neutrophils 5.0 % 08/19/22 04:44 Abs Band Neuts (Man) 0.5 10^3/cmm (0.0-1.2) 08/19/22 04:44 Absolute Lymphocytes 2.8 10^3/cmm (1.2-3.4) 08/19/22 04:44 Lymphocytes (Manual) 28 % 08/19/22 04:44 Monocytes (Manual) 7.0 % 08/19/22 04:44 Absolute Monocytes 0.7 10^3/cmm (0.1-0.6) H 08/19/22 04:44 Eosinophils (Manual) 0 % 08/19/22 04:44 Absolute Eosinophils 0.0 10^3/cmm (0.0-0.7) 08/19/22 04:44 Basophils (Manual) 0.0 % 08/19/22 04:44 Absolute Basophils 0.0 10^3/cmm (0.0-0.2) 08/19/22 04:44 Metamyelocytes 2.0 % 08/19/22 04:44 Nucleated RBCs # 0.0 /100WBC 08/22/22 02:51 Toxic Vacuolation 1+ H 08/16/22 02:19 Platelet Estimate Normal (Normal) 08/19/22 04:44 Polychromasia 1+ H 08/16/22 02:19 Anisocytosis 2+ H 08/16/22 02:19 Macrocytosis 1+ H 08/19/22 04:44 D-Dimer 0.75 ug/mIFEU (0-0.59) H 08/10/22 04:16 Specimen Type Arterial 08/21/22 09:03 Sample Site Brachial, left 08/21/22 09:03 ABG pH 7.57 (7.35-7.45) H* 08/21/22 09:03 ABG pCO2 35.9 mmHg (35-45) 08/21/22 09:03 ABG pO2 93.2 mmHg (80.0-100.0) 08/21/22 09:03 ABG HCO3 32.7 mmol/L (22-26) H 08/21/22 09:03 ABG O2 Saturation 95.9 08/21/22 09:03 ABG Base Excess 10.0 mmol/L (-2.0-2.0) H 08/21/22 09:03 Oliver Test Pos 08/21/22 09:03 A-a O2 Gradient 9.8 mmHg (5-10) 08/21/22 09:03 Hematocrit 27.3 % (37-47) L 08/21/22 09:03 Hgb O2 Saturation 95.0 % (95-100) 08/21/22 09:03 Carboxyhemoglobin < 0.0 %THgb (0.4-20.1) L 08/21/22 09:03 Methemoglobin 1.0 % (0.4-1.5) 08/21/22 09:03 Total Hemoglobin 8.9 g/dL (12-16) L 08/21/22 09:03 Sodium 137.0 mmol/L (131-143) 08/21/22 09:03 Potassium 3.5 mmol/L (3.5-5.0) 08/21/22 09:03 Glucose 117.0 mg/dL (70-115) H 08/21/22 09:03 Ionized Calcium 1.2 mmol/L (1.1-1.4) 08/21/22 09:03 O2 Delivery Device Vent 08/21/22 09:03 O2 Liters/Min 55.0 % 08/15/22 13:50 FiO2 30.0 % 08/21/22 09:03 Tidal Volume 0.35 08/19/22 17:31 PEEP 5.0 cmH20 08/21/22 09:03 [employer] Internship ID Cak 08/21/22 09:03 Sodium 142 mmol/L (136-145) 08/22/22 02:51 Potassium 3.8 mmol/L (3.5-5.1) 08/22/22 02:51 Chloride 104 mmol/L (98-107) 08/22/22 02:51 Carbon Dioxide 32 mmol/L (22-29) H 08/22/22 02:51 Anion Gap 9.8 (5-19) 08/22/22 02:51 BUN 9 mg/dL (8-23) 08/22/22 02:51 Creatinine 0.3 mg/dL (0.5-0.9) L 08/22/22 02:51 GFR Calculation 225.4 mL/min (90-130) H 08/22/22 02:51 Glucose 87 mg/dL (65-115) 08/22/22 02:51 POC Glucose 90 mg/dL (70-110) 08/22/22 10:49 Estimat Average Glucose 59 08/10/22 04:16 Hemoglobin A1c 3.7 % (4.0-6.0) L 08/10/22 04:16 Calculated Osmolality 292 mOsm/kg (285-295) 08/22/22 02:51 Lactic Acid 2.6 mmol/L (0.5-2.2) H 08/08/22 20:25 Lactate 1.4 mmol/L (0.5-2.2) 08/09/22 05:05 Calcium 8.5 mg/dL (8.5-10.5) 08/22/22 02:51 Phosphorus 3.0 mg/dL (2.5-4.5) 08/20/22 03:26 Magnesium 2.0 mg/dL (1.7-2.3) 08/22/22 02:51 Iron 31 ug/dL (37-145) L 08/22/22 02:51 TIBC 76 mcg/dl 08/22/22 02:51 % Saturation 40.7 % (20-50) 08/22/22 02:51 Unsat Iron Binding 45 ug/dL (112-347) L 08/22/22 02:51 Total Bilirubin 0.6 mg/dL (0.15-1.2) 08/20/22 03:26 AST 36 U/L (0-32) H 08/20/22 03:26 ALT 17 U/L (0-33) 08/20/22 03:26 Alkaline Phosphatase 123 U/L (35-105) H 08/20/22 03:26 Troponin T Gen 5 ng/L 28 ng/L (0-10) H 08/10/22 04:16 Troponin T Baseline 25 ng/L (0-10) H 08/08/22 13:48 Troponin T 120 Minute 24.05 ng/L (0-10) H 08/08/22 15:33 Delta Troponin T -0.95 ABS# (0-10) L 08/08/22 15:33 Troponin T Hi Sens 6Hr 25.69 ng/L (0-10) H 08/09/22 05:05 Troponin T Hi Sens 6Hr Delta 0.69 ng/L (0-12) 08/09/22 05:05 C-Reactive Protein 9.4 mg/L (0.0-4.9) H 08/08/22 13:48 NT-Pro-B Natriuret Pep 807 pg/mL (0-125) H 08/08/22 13:48 Total Protein 4.2 g/dL (6.6-8.7) L 08/20/22 03:26 Albumin 2.3 g/dL (3.5-5.2) L 08/20/22 03:26 Globulin 1.9 g/dL (1.3-4.6) 08/20/22 03:26 Triglycerides 109 mg/dL (0-150) 08/10/22 04:16 Cholesterol 66 mg/dL (0-200) 08/10/22 04:16 LDL Cholesterol, Calc 34 mg/dL (50-129) L 08/10/22 04:16 Total VLDL Cholesterol 22 mg/dL (0-30) 08/10/22 04:16 HDL Cholesterol 10 mg/dL (60-100) L 08/10/22 04:16 Cholesterol/HDL Ratio 6.60 mg/dL (0.0-4.40) H 08/10/22 04:16 Vitamin B12 > 2000 pg/mL (232-1245) H 08/22/22 07:40 Procalcitonin 2.36 ng/mL (0-0.5) H 08/15/22 21:19 TSH 0.49 uIU/mL (0.27-4.20) 08/08/22 13:48 Random Cortisol 25.42 ug/dL (2.47-19.5) H 08/11/22 03:45 Urine Color Yellow (Yellow) 08/08/22 17:23 Urine Appearance Hazy (CLEAR) A 08/08/22 17:23 Urine pH 6 (5-7) 08/08/22 17:23 Ur Specific [place] 1.000 (1.005-1.030) L 08/08/22 17:23 Urine Protein Neg (Negative) 08/08/22 17:23 Urine Glucose (UA) Norm (Normal) 08/08/22 17:23 Urine Ketones Negative (Negative) 08/08/22 17:23 Urine Blood Neg (Negative) 08/08/22 17:23 Urine Nitrate Negative (Negative) 08/08/22 17:23 Urine Bilirubin Neg (Negative) 08/08/22 17:23 Urine Urobilinogen 1 mg/dL (Negative) H 08/08/22 17:23 Ur Leukocyte Esterase 1+ (Negative) H 08/08/22 17:23 Urine RBC 0-4 /hpf (0-2) H 08/08/22 17:23 Urine WBC 5-10 /hpf (0-5) H 08/08/22 17:23 Ur Squamous Epith Cells 0-4 /hpf (0-5) H 08/08/22 17:23 Amorphous Sediment Not Reportable 08/08/22 17:23 Urine Bacteria 4+ /hpf (NONE) H 08/08/22 17:23 RSV Nasal Swab Not detected (Not Detected) 08/08/22 17:27 RSV Nasal Swab Int Cntl Not detected (Not Detected) 08/08/22 17:27 Bronch Specimen Source Right lower lobe 08/16/22 12:10 Bronchial Fluid Color Colorless 08/16/22 12:10 Bronchial Fluid Appearance Clear (CLEAR) 08/16/22 12:10 Bronchial Fluid WBC 940 /uL 08/16/22 12:10 Bronchial Fluid RBC 1 10^3/uL 08/16/22 12:10 Bronch Cells Counted 200 08/16/22 12:10 Bronchial Neutrophils 178.00 % (0.9-2.3) H 08/16/22 12:10 Bronchial Lymphocytes 20.00 % (10.71-12.91) H 08/16/22 12:10 Bronchial Diff Comment Yes 08/16/22 12:10 Vancomycin Trough 25.3 ug/mL (10-15) H* 08/21/22 20:53 Adenovirus (PCR) Not detected (Not Detected) 08/08/22 17:27 Coronavirus 229E (PCR) Not detected (NOT DETECT) 08/14/22 09:06 Human Metapneumovir PCR Not detected (Not Detected) 08/08/22 17:27 Influenza A (RT-PCR) Not detected (Not Detected) 08/08/22 17:27 Influenza A (H1) PCR Not detected (Not Detected) 08/08/22 17:27 Influenza A (H3) PCR Not detected (Not Detected) 08/08/22 17:27 Influenza B (RT-PCR) Not detected (Not Detected) 08/08/22 17:27 Parainfluenzae Type 1 Not detected (Not Detected) 08/08/22 17:27 Parainfluenzae Type 2 Not detected (Not Detected) 08/08/22 17:27 Parainfluenzae Type 3 Not detected (Not Detected) 08/08/22 17:27 RSV Ab Comment see note 08/08/22 17:27 Rhinovirus (PCR) Not detected (Not Detected) 08/08/22 17:27 SARS-CoV-2 (PCR) Not detected (NOT DETECT) 08/14/22 09:06 SARS-CoV-2 Ag (Rapid) Negative (Negative) 08/08/22 20:47 Blood Type A Positive 08/12/22 09:10 Rho(D) Type Positive 08/12/22 09:10 Antibody Screen Negative 08/12/22 09:10 Crossmatch See Detail 08/12/22 09:10 Micro: Microbiology 08/20/22 15:21 Gram Stain - Final Sputum - Endotracheal Tube Aspirate Sputum Culture - Final A&P Assessment and plan (1) Respiratory failure with hypoxia: Status: Acute (2) ARDS (adult respiratory distress syndrome): Status: Acute (3) Aspiration pneumonia: Status: Acute (4) Gastric bezoar: Status: Acute (5) Severe protein-energy malnutrition: Status: Acute (6) Hx of gastric bypass: Status: Acute (7) Hypoalbuminemia: Status: Chronic (8) Esophageal hiatal hernia: Status: Chronic (9) Grade I diastolic dysfunction: Status: Chronic (10) Hypothyroidism: Status: Chronic Qualifiers: Hypothyroidism type: acquired Qualified Code(s): E03.9 - Hypothy roidism, unspecified Plan #acute hypoxic respiratory failure secondary to ARDS secondary to aspiration pneumonia/fluid overload #Patient has history of grade 1 diastolic dysfunction-currently +12 L since admission #Hypokalemia -2.4; supplemented today morning #On 08/17/2022 during the intubation she had fever spikes with elevated procal - suspect pneumonia not responding to zosyn-recommended to complete 7-day course of vancomycin and imipenem -Initially intubated due to aspiration on 08/10/2022-extubated on 08/14/2022 -reintubated 08/16/22 for increasing requirements on high flow nasal cannula- extubated 08/21/2022 -Currently on 2 L nasal cannula -Patient is very deconditioned-recommended bedside physical therapy speech therapy follow-up for advancement of her diet and until then continue NG feeding -previously on on Zosyn for aspiration pneumonia as well as UTI 08/08/2022 positive for E. coli as well as Klebsiella; later procalcitonin - 2.65 & fever spikes on 08/17/22- discontinued Zosyn and started pt on vancomycin and imipenam on 08/16/22 ;since then no fever spikes; complete 7 days 08/23/2022 -s/p bronchoscopy 08/16/2022 and BAL from [facility]-final cultures negative; MRSA nares negative -clincally improving -Renal functions are good-lasix as needed; normal electrolytes -Monitor renal function/electrolytes/input output -She is on home medication droxidopa for suspected orthostatic hypotension; also she was on fludrocortisone as outpatient- ???adrenal insufficiency-currently her blood pressure is maintained with hydrocortisone 10 Mg a.m. and 5 Mg p.m. continue levothyroxine for hypothyroidism #History of gastric bypass in 2001 #Patient presented with nausea vomiting-with suspected food impaction and large esophageal hiatal hernia which was pushed through EGD on 08/11/2022 #CT abdomen pelvis 08/17/2022-no evidence of obvious obstruction, complex gastric bypass surgery incompletely defined, NGT placed in jejunum -Patient follows up with the surgeon as outpatient-and underwent an endoscopy July 27, 2022-recommended to take small meals-apparently patient is noncompliant -currently feeding through NG tube and speech therapy is closely following- recommended clear liquid fluids for now and will continue to evaluate on advancing the diet - appreciate general surgery consult ICU CHECKLIST: Problem list updated Verbal orders reviewed and signed Analgesia: NA Glycemic Control: N/A Nutrition: Clear liquid diet Restraint Renewal (within 24 hrs): yes Ulcer Prophylaxis: PPI Chemical Thromboprophylaxis: Prophylaxis: Lovenox Mechanical Thromboprophylaxis: SCD Need for Central line: PICC line for TPN -can discontinue Need for Dodd catheter: urine output monitoring Critical Care Time (No Overlap): 45 min This patient has a high probability of sudden, clinically significant deterioration, which requires the highest level of physician preparedness to intervene urgently. I managed/supervised life or organ supporting interventions that required frequent physician assessment. I devoted my full attention in the ICU to the direct care of this patient for the period of time indicated above. Time I spent with family or surrogate(s) is included only if the patient was incapable of providing necessary information or participating in decision making. Time devoted to teaching and to any procedures I billed separately is not included. Services Provided: Telemetry review Mechanical Ventilation Hemodynamic interpretation, assessment and management Review and interpretation of CXR Review and interpretation of lab values Review and interpretation of microbiologic data and culture results Review of medications and administration Review and interpretation of Nutrition requirements and management Discussion of management with other consultants and services Clinical update to family members This patient is clinically stable-I will sign off the case from critical care standpoint -Recommendations conveyed to hospitalist, RN, RT taking care of the patient. Please reconsult as necessary Attestations Medical Necessity Statement*: Deferred to hospitalist Time Spent in Patient Care: Greater than 35 minutes (>than 50% of time spent in counselling and/or direct pt care on unit) . Critical Care Time: The high probability of a clinically significant, sudden or life threatening deterioration of the patient's [Pulmonary, GI, renal, Infectious] system(s) required my full and direct attention, intervention and personal management. The critical care time is as shown. This time is in addition to time spent performing any reported procedures but includes the following: [x] Data and vital sign review and interpretation [x] Patient assessment, examination and intervention [x] Documentation [x] Medication orders and management Critical Care Time (min): 45 Coding Level of Care Code Established Pt Acute Artificial Cherry Maker for Chg Fwd Patient Type Established History Comprehensive Exam Comprehensive Medical Decision Making High Complexity Diagnoses Respiratory failure with hypoxia J96.91 ARDS (adult respiratory distress syndrome) J80 Aspiration pneumonia J69.0 Gastric bezoar T18.2XXA Severe protein-energy malnutrition E43 Hx of gastric bypass Z98.84 Hypoalbuminemia E88.09 Esophageal hiatal hernia K44.9 Grade I diastolic dysfunction I51.89 Hypothyroidism E03.9 Hypothyroidism type: acquired Time Spent (min) 45
[2022-08-22 17:18] LABS: Glucose Point of Care 87 mg/dL (70-110)
[2022-08-22] MEDS: hydrocortisone 10 mg Tablet 5 MG PO (17:31)
--- NOTE | 2022-08-22 17:36 | PM.PN ---
Subjective Subjective: Patient overall seems to making appropriate clinical progress ,has been tolerating clear liquid after being extubated successfully and maintained to be in appropriate status . Medications: Reviewed: Yes Vitals/I&O/Wt Last Vital Signs Temp 98.1 F 08/22/22 07:00 Pulse 90 08/22/22 16:00 Resp 22 H 08/22/22 16:00 BP 114/78 08/22/22 16:00 Pulse Ox 94 08/22/22 16:00 O2 Del Method 08/22/22 15:00 O2 Flow Rate 2 08/22/22 15:00 FiO2 30 08/21/22 09:42 08/22/22 08/22/22 08/22/22 06:59 14:59 22:59 Intake Total 450 / 1000 1000 / 1000 Output Total 600 / 1400 1100 / 1100 Balance -150 / -400 -100 / -100 Physical Exam Narrative: Patient is conscious alert oriented X3 Endotracheal tube in place as well as feeding tube No apparent distress BMI 26 Head and neck examination PERRLA no masses no cervical lymphadenopathy no jaundice Feeding tube in place Abdomen nontender nondistended soft no organomegaly guarding or rigidity/no signs of peritonitis Urinary Catheter Management: Dodd: Cath Placed During This Visit: yes Reason for Continuing Indwelling Catheter: Accurate Measurement of Urinary Output in Critically Ill Patients Urinary Catheter Date of Insertion: 08/11/22 Urinary Catheter Time of Insertion: 00:20 Data : 08/22/22 02:51 08/22/22 02:51 Micro: Microbiology 08/20/22 15:21 Gram Stain - Final Sputum - Endotracheal Tube Aspirate Sputum Culture - Final A&P Assessment and plan (1) Hx of gastric bypass: From bariatric surgery standpoint of view patient can start on p.o. protein shakes with each meal with aspiration precaution and wean her off from her tube feeds. I would recommend at this point to hold off the modified barium swallow per speech pathology and upper GI study. Once the patient continues to tolerate p.o. intake we will plan to discontinue the NG tube and perhaps down the road consider a modified barium swallow if indicated. I think at this point patient had declared herself to have a safe p.o. intake. I did discuss the case with Dr. Adkins and both of us on the same page and I did update the patient with the plan of care as well as her spouse and both are in agreement. Assurance and education All questions have been answered and all concerns have been addressed to patient's satisfaction. Status: Acute Attestations Medical Necessity Statement*: Per admitting service Time Spent in Patient Care: 16 - 35 minutes Coding Level of Care Code Acute Seismograph Shooter for Chg Fwd Diagnoses Hx of gastric bypass Z98.84
--- NOTE | 2022-08-22 17:45 | PC.NURSE ---
At 1500 Jevity 1.2 tube feeding was restarted at 30ml/hr per Dr. Gaston's order. At 1730 Dr. Ortiz rounded and ordered to reduce rate to 20 ml/hr. This adjustment was made.
[2022-08-22 21:20] LABS: Glucose Point of Care 87 mg/dL (70-110)
[2022-08-22] MEDS: enoxaparin 40 mg/0.4 mL Syringe SUBCUT (22:54)
[2022-08-23] VITALS (38 sets, daily range): BP systolic 100–131; BP diastolic 66–85; PULSE 81–104; RESP 15–25; TEMP 36.4–37.1; O2SAT 85–100
[2022-08-23] MEDS: chlorhexidine gluconate 4% Btl 118 mL 1 APPLIC TOPICAL ×2 (01:59→23:25)
[2022-08-23] MEDS: ipratropium-albuterol 3 mL Neb INHALATION ×2 (02:17→08:33)
[2022-08-23 04:12] LABS: Basophils # 0.1 10^3/uL (0.0-0.1); Basophils % 0.8 %; Eosinophils % 0.3 %; Hematocrit 28.7 % (37.0-47.0); Hemoglobin 8.7 g/dL (11.5-15.3); Lymphocytes # 2.8 10^3/uL (0.8-4.8); Lymphocytes % 24.3 %; Mean Corpuscular HGB Conc 30.3 g/dL (30.0-36.0); Mean Corpuscular Hemoglobin 34.9 pg (28.0-34.0); Mean Corpuscular Volume 115.3 fl (81-99); Mean Platelet Volume 12.7 fL (7.4-10.4); Monocytes # 1.3 10^3/uL (0.2-0.9); Neutrophils # 6.81 10^3/uL (1.8-7.7); Neutrophils % 59.8 %; Nucleated Red Blood Cells % 0 %; Platelet Count 380 10^3/cmm (130-400); Positive C 1; Red Blood Count 2.49 10^6/uL (4.1-5.3); Red Cell Distribution Width 18.5 % (12.1-15.1); White Blood Count 11.4 10^3/uL (4.0-10.0)
[2022-08-23 06:01] LABS: Slide Review Slide Review Perform
[2022-08-23] MEDS: midodrine 5 mg TABLET 10 MG PO ×2 (06:06→12:10)
[2022-08-23] MEDS: levothyroxine 125 mcg Tablet PO (06:06)
[2022-08-23] MEDS: pantoprazole 40 mg SDV IVP (06:06)
[2022-08-23] MEDS: sucralfate 1 gm/10 mL Oral Liq UDC PO ×2 (06:06→12:10)
[2022-08-23 07:03] LABS: Alanine Aminotransferase 22 U/L (0-33); Albumin Level 2.7 g/dL (3.5-5.2); Alkaline Phosphatase 117 U/L (35-105); Anion Gap 11.9 (5-19); Aspartate Amino Transferase 37 U/L (0-32); Blood Urea Nitrogen 8 mg/dL (8-23); Calcium 8.6 mg/dL (8.5-10.5); Carbon Dioxide 28 mmol/L (22-29); Chloride 105 mmol/L (98-107); Globulin 2.1 g/dL (1.3-4.6); Glomerular Filtration Rate 161.7 mL/min (90-130); Glucose 93 mg/dL (65-115); Osmolality Calculated 290 mOsm/kg (285-295); Potassium 3.9 mmol/L (3.5-5.1); Sodium 141 mmol/L (136-145); Total Bilirubin 0.5 mg/dL (0.15-1.2); Total Protein 4.8 g/dL (6.6-8.7)
--- NOTE | 2022-08-23 07:44 | PC.NURSE ---
Shift Note Frequent safety and comfort rounds continue. Orders and/or nursing care completed as indicated. Patient monitored for response to intervention and treatment(s). Education provided includes frequent turning and repositioning. Patient verbalized understanding of teaching. Patient had an uneventful shift, remains alert and oriented on 2LNC. Frequently turned and repositioned patient overnight with assistance from staff. Dodd catheter drained 400 mls of urine overnight. Rectal tube discontinued overnight due to stool consistency. Will continue to monitor.
[2022-08-23 07:53] LABS: Glucose Point of Care 97 mg/dL (70-110)
[2022-08-23] MEDS: budesonide 0.5 mg/2 mL Neb INHALATION (08:33)
[2022-08-23] MEDS: BuSPIRONE 10 mg Tablet 30 MG PO (09:17)
[2022-08-23] MEDS: zonisamide 100 MG Capsule 50 MG PO (09:17)
[2022-08-23] MEDS: potassium chloride oral liq 20 mEq/15 mL UDC 40 MEQ PO (09:17)
[2022-08-23] MEDS: nystatin 100,000 unit/mL UDC 5 mL 100000 UNIT PO ×2 (09:17→12:10)
[2022-08-23] MEDS: duloxetine 60 mg Capsule PO (09:18)
[2022-08-23] MEDS: hydrocortisone 10 mg Tablet 5 MG PO (09:18)
[2022-08-23] MEDS: ascorbic acid 500 mg Tablet PO (09:18)
[2022-08-23] MEDS: multivitamin therapeutic Tablet 1 TAB PO (09:18)
[2022-08-23] MEDS: zinc gluconate 50 mg Tablet PO (09:19)
[2022-08-23] MEDS: thiamine 100 mg Tablet PO (09:19)
--- NOTE | 2022-08-23 10:36 | PC.SOCIAL ---
IMM Update pg 2 of IMM updated and reviewed w/ patient. Copy provided and Copy in chart updated.
[2022-08-23] MEDS: cyanocobalamin 1,000 mcg Tablet 1000 MCG PO (12:10)
[2022-08-23 12:31] LABS: Glucose Point of Care 119 mg/dL (70-110)
--- NOTE | 2022-08-23 13:24 | P.PN_ITS ---
Subjective Subjective: No acute events overnight. Patient has remained hemodynamically stable on minimal oxygen. Patient tolerated clear liquid diet well along with tube feeds. Started on protein shakes today morning which she is tolerating well as well. Patient continues to not participate in physical therapy. Pat guerreront counseled in detail regarding need for physical therapy going forward to regain physical conditioning. Medications: Reviewed: Yes Vitals/I&O/Wt Last Vital Signs Temp 98.4 F 08/23/22 08:00 Pulse 94 08/23/22 11:00 Resp 21 H 08/23/22 11:00 BP 118/84 08/23/22 11:00 Pulse Ox 95 08/23/22 11:00 O2 Del Method 08/23/22 09:00 O2 Flow Rate 2 08/23/22 09:00 FiO2 30 08/21/22 09:42 08/22/22 08/23/22 08/23/22 22:59 06:59 14:59 Intake Total 400 / 1400 342 / 1742 200 / 200 Output Total 400 / 1500 400 / 1900 Balance 0 / -100 -58 / -158 200 / 200 Physical Exam Narrative: Constitutional: AAOx3, anxious, chronically ill-appearing, physical deconditioning HEENT: Bitemporal wasting, extraocular movements intact, moist mucous membranes Neck: Supple Respiratory: Bibasilar crackles, no wheezes, no accessory muscle use Cardiovascular: Regular rate and rhythm, no gallops or rubs Abdomen: Soft, nontender, doughy texture, positive bowel sounds Extremities: Trace edema bilaterally in lower extremities, muscle wasting noted Skin: Scattered sores and bruises in different stages of healing with iatrogenic changes noted to the upper extremities in particular from blood draws Neuro: Speech clear, face symmetric, moves all extremities, no involuntary movements noted Psych: Flat affect Urinary Catheter Management: Dodd: Cath Placed During This Visit: yes Reason for Continuing Indwelling Catheter: Accurate Measurement of Urinary Output in Critically Ill Patients Urinary Catheter Date of Insertion: 08/11/22 Urinary Catheter Time of Insertion: 00:20 Data : 08/23/22 03:23 08/23/22 06:31 Micro: Microbiology 08/22/22 14:00 C.difficile Toxin B Gene (PCR) - Final Stool - Stool Aspirate 08/20/22 15:21 Gram Stain - Final Sputum - Endotracheal Tube Aspirate Sputum Culture - Final A&P Assessment and plan (1) Respiratory failure with hypoxia: Secondary to aspiration pneumonitis. Keep saturation over 88%. Sputum cultures so far negative. Cultures from bronch negative. MRSA negative. Patient has had antibiotics for more than 1 week. Hold off on vancomycin. We will continue with plan to finish a 7-day course. Aggressive pulmonary toilet with incentive spirometry and flutter valve. Status: Acute (2) Nausea and vomiting: Most likely secondary to noncompliant with dietary intake in setting of post gastric bypass status leading to extensive food product collection at the junction causing pseudoobstruction of distal esophagus. Follows up with Dr. Ortiz as an outpatient. Post gastric bypass surgery more than 20 years ago. Most recent endoscopy in July 2022 which did not show any concern for hiatal hernia along with healing gastric ulcers. Nausea and vomiting currently secondary to extensive food products, bezoar like material seen in the upper GI series along with dilated distal esophagus versus hiatal hernia. Post EGD on 08/11. Food particles pushed through the junction. Protonix 40 mg IV twice daily, Carafate before meals and at bedtime. LFTs have at baseline. Bilirubin around 1.5. Seems to be at baseline. Postcholecystectomy. Continue with NG tube placement and tube feedings given severe malnutrition. Restart tube feeds at 30 cc/h. Continue swallow evaluation. Clear liquid diet for now. Will check modified barium swallow and upper GI series for further evaluation going forward. Status: Acute (3) Pneumonia: Treatment as #1. Status: Acute Qualifiers: Pneumonia type: aspiration pneumonia (4) Severe protein-energy malnutrition: With A1c of 3.7, total cholesterol of 66. In setting of history of gastric bypass. Continue with tube feeds with Jevity at 30 cc/h. Dietitian consult. High chances of refeeding syndrome we will continue to monitor magnesium, phosphorus, calcium. Most likely patient will need to be discharged on tube feeding to regain nutrition and then transition over to oral diet gradually. Status: Acute (5) Hypernatremia: Resolved. Status: Acute (6) Status post gastric bypass for obesity: Supposed to eat frequent small meals but as evidenced by what she ate in the emergency room I think she probably eats more volume than she should at times resulting in frequent vomiting in addition to impact from reflux issues. Has seen Dr. Ortiz on an outpatient basis for a while. Status: Chronic (7) Grade I diastolic dysfunction: With diffuse body wall anasarca. Described pulmonary effusions presently felt to likely be secondary to aspiration. Has recently been started on diuretic therapy though it was held at discharge earlier this week after stay with almost 8 L negative fluid balance and someone with known orthostatic hypotension and frequent falls. Echocardiogram within the last 10 days showed an ejection fraction of 65%. Continue to monitor intake versus output. Repeat Lasix 40 mg p.o. once. In system patient is around 9 L negative but appears euvolemic currently. Status: Chronic (8) Orthostatic hypotension: Chronic diagnosis, follows with Dr. Pack. He is on midodrine. Not on Northera currently which was recently prescribed. Review of prior discharge summary shows that fludrocortisone was discontinued earlier this week. Cortisol level elevated. Not sure of diagnosis of adrenal insufficiency. Most likely patient not getting Northera as an outpatient as still awaiting prior authorization. Change dose of hydrocortisone to 5 mg twice daily. Status: Chronic (9) Hypothyroidism: On chronic levothyroxine Status: Chronic Qualifiers: Hypothyroidism type: acquired Qualified Code(s): E03.9 - Hypothyroidism, unspecified (10) Macrocytic anemia: Status: Chronic (11) Esophageal hiatal hernia: Status: Chronic (12) Gastric bezoar: Status: Acute Plan Analgesia: Tylenol as needed Glycemic control: Not needed Nutrition: Tube feeds with Jevity. Dietitian consult CODE STATUS: Discussed in detail with patient. She wants to remain full code for now. PUD prophylaxis: Protonix DVT prophylaxis: Lovenox 40 mg daily. Discharge planning: SNF versus home with home health once medically stable. Physical therapy evaluation. Most likely patient will need SNF placement for further rehabitation given severe physical deconditioning. Continue with care at [facility] floor Guarded prognosis given severe protein energy malnutrition. Care discussed in detail with patient's spouse at bedside. Plan for day: Continue to hold off on antibiotics and monitor for hemodynamics and fevers. Continue to increase oral intake and advance as per swallow evaluation. For now continue with tube feeds at current rate of 20 cc/h. Physical therapy, out of bed to chair. For now plan is to discharge to SNF for further rehabitation. Patient and is agreeable. The patient is not working with physical therapy well. Will school counselor patient in detail regarding need for physical therapy participation for favorable placement. Transfer to [facility] floor without telemetry. Continue to hold off on gabapentin and mirtazapine. Continue with midodrine and hydrocortisone 5 mg twice daily. This documentation was created by [employer] multiple punch press operator software. Every effort was made to ensure accuracy of multiple punch press operator. Any obvious errors or omissions should be clarified with the author of the document. Attestations Medical Necessity Statement*: Requires further hospital hypoxia secondary to aspiration pneumonitis in a patient with gastric bypass status, severe physical deconditioning, severe protein energy malnutrition while safe discharge planning is sought. Time Spent in Patient Care: Greater than 35 minutes Coding Level of Care Code Acute Window Glazier for g Fwd Diagnoses Respiratory failure with hypoxia J96.91 Nausea and vomiting R11.2 Pneumonia J18.9 Pneumonia type: aspiration pneumonia Severe protein-energy malnutrition E43 Hypernatremia E87.0 Status post gastric bypass for obesity Z98.84 Grade I diastolic dysfunction I51.89 Orthostatic hypotension I95.1 Hypothyroidism E03.9 Hypothyroidism type: acquired Macrocytic anemia D53.9 Esophageal hiatal hernia K44.9 Gastric bezoar T18.2XXA
--- NOTE | 2022-08-23 16:54 | PC.NURSE ---
Patient pulled out NG tube, feedings stopped per BROWN Campbell to change accu checks to [facility] due to no longer on tube feedings.
[2022-08-23 17:14] LABS: Glucose Point of Care 89 mg/dL (70-110)
--- NOTE | 2022-08-23 17:25 | PC.NURSE ---
pt at bedside, this fha underwriter attempted to give pt her 1800 medications as well as iV medication, patient screamed out i do not want them, I do not want anything educated patient that medications is important in her health pt verbalizes understanding. Encouraged patient to eat dinner, Pt again screamed out i do not want it . as well attempted to encourage patient who refused again.
--- NOTE | 2022-08-23 17:46 | PC.NURSE ---
pt verbalizes that she did pull her NG tube out because she does not want it, when trying to give pt IV medication she also states i dont want that either notified Dr. Moore who requests a sitter be placed in patient room.
--- NOTE | 2022-08-23 18:33 | PC.NURSE ---
Pt sitting up in bed feeding herself and drinking her ensure, when adjusto writer operator walked in patient instantly stopped and would not talk to adjusto writer operator. Asked patient if i could wrap up her arm to secure her PICC line, patient became agitated and said NO encouraged patient to allow this adjusto writer operator to wrap her PICC line, patient attempted to smack at nurse and screamed out i dont want it .
[2022-08-23 20:00] LABS: Glucose Point of Care 93 mg/dL (70-110)
--- NOTE | 2022-08-23 21:02 | PC.NURSE ---
Patients oxygen level is 85% on room air. Nurse tried to put nasal canula on patient and pt refused. Will continue to monitor O2 levels of pt on room air.
[2022-08-24] VITALS (11 sets, daily range): BP systolic 115–129; BP diastolic 76–85; PULSE 89–105; RESP 15–22; TEMP 36.6–36.9; O2SAT 91–99
[2022-08-24 03:42] LABS: Basophils # 0.1 10^3/uL (0.0-0.1); Basophils % 0.7 %; Eosinophils % 0.2 %; Hematocrit 26.8 % (37.0-47.0); Hemoglobin 8.3 g/dL (11.5-15.3); Lymphocytes # 2.7 10^3/uL (0.8-4.8); Lymphocytes % 30.3 %; Mean Corpuscular Hemoglobin 34.4 pg (28.0-34.0); Mean Corpuscular Volume 111.2 fl (81-99); Mean Platelet Volume 10.7 fL (7.4-10.4); Monocytes # 1.2 10^3/uL (0.2-0.9); Monocytes % 13.5 %; Neutrophils # 4.56 10^3/uL (1.8-7.7); Neutrophils % 51.5 %; Nucleated Red Blood Cells % 0 %; Platelet Count 446 10^3/cmm (130-400); Red Blood Count 2.41 10^6/uL (4.1-5.3); Red Cell Distribution Width 18.1 % (12.1-15.1); White Blood Count 8.9 10^3/uL (4.0-10.0)
[2022-08-24 04:08] LABS: Alanine Aminotransferase 20 U/L (0-33); Albumin Level 2.5 g/dL (3.5-5.2); Alkaline Phosphatase 106 U/L (35-105); Anion Gap 11.6 (5-19); Aspartate Amino Transferase 30 U/L (0-32); Blood Urea Nitrogen 6 mg/dL (8-23); Calcium 8.6 mg/dL (8.5-10.5); Carbon Dioxide 26 mmol/L (22-29); Chloride 108 mmol/L (98-107); Glomerular Filtration Rate 225.4 mL/min (90-130); Glucose 83 mg/dL (65-115); Magnesium 2.3 mg/dL (1.7-2.3); Osmolality Calculated 291 mOsm/kg (285-295); Phosphorus 3.6 mg/dL (2.5-4.5); Potassium 3.6 mmol/L (3.5-5.1); Sodium 142 mmol/L (136-145); Total Bilirubin 0.5 mg/dL (0.15-1.2); Total Protein 4.5 g/dL (6.6-8.7)
[2022-08-24] MEDS: levothyroxine 125 mcg Tablet PO (06:23)
[2022-08-24] MEDS: pantoprazole 40 mg SDV IVP ×2 (06:23→17:43)
[2022-08-24] MEDS: sucralfate 1 gm/10 mL Oral Liq UDC PO ×3 (06:23→17:43)
[2022-08-24] MEDS: midodrine 5 mg TABLET 10 MG PO ×3 (06:33→17:43)
--- NOTE | 2022-08-24 06:50 | P.PN_ITS ---
Subjective Subjective: Patient was seen and evaluated. Transferred from the ICU and seems to be tolerating p.o. intake appropriately. Feeding tube was pulled out it seems accidentally from what I gather from the nursing staff. Per speech pathology patient can be advanced to pur?ed diet today Medications: Reviewed: Yes Vitals/I&O/Wt Last Vital Signs Temp 98.5 F 08/24/22 00:00 Pulse 97 08/24/22 04:00 Resp 16 08/24/22 04:00 BP 126/81 08/24/22 04:00 Pulse Ox 92 08/24/22 04:00 O2 Del Method 08/24/22 04:00 O2 Flow Rate 2 08/24/22 04:00 FiO2 30 08/21/22 09:42 08/23/22 08/23/22 08/24/22 14:59 22:59 06:59 Intake Total 400 / 400 100 / 500 Balance 400 / 400 100 / 500 Physical Exam Narrative: Patient is conscious alert oriented X3 BMI 26 Head and neck examination PERRLA no masses no cervical lymphadenopathy no jaundice Abdomen nontender nondistended soft no organomegaly guarding or rigidity/no signs of peritonitis Urinary Catheter Management: Dodd: Cath Placed During This Visit: yes Reason for Continuing Indwelling Catheter: Hospice/Comfort/Palliative Care Urinary Catheter Date of Insertion: 08/11/22 Urinary Catheter Time of Insertion: 00:20 Data : 08/24/22 03:18 08/24/22 03:18 Micro: Microbiology 08/22/22 14:00 C.difficile Toxin B Gene (PCR) - Final Stool - Stool Aspirate A&P Assessment and plan (1) Hx of gastric bypass: Can advance to pur?ed diet Continue aspiration precautions From bariatric surgery standpoint of view patient can follow-up as outpatient We will continue coordinating care with hospitalist service Likely the patient would benefit from rehabilitation due to her generalized weakness Assurance and education All questions have been answered and all concerns have been addressed to megan hook's satisfaction. Status: Acute Attestations Medical Necessity Statement*: Per admitting service Coding Level of Care Code Acute Senior Storage Administrator for Chg Fwd Diagnoses Hx of gastric bypass Z98.84
[2022-08-24 06:55] LABS: Glucose Point of Care 96 mg/dL (70-110)
[2022-08-24] MEDS: hydrocortisone 10 mg Tablet 5 MG PO ×2 (09:37→17:43)
[2022-08-24] MEDS: BuSPIRONE 10 mg Tablet 30 MG PO ×2 (09:37→17:44)
[2022-08-24] MEDS: zinc gluconate 50 mg Tablet PO (09:37)
[2022-08-24] MEDS: multivitamin therapeutic Tablet 1 TAB PO (09:38)
[2022-08-24] MEDS: ascorbic acid 500 mg Tablet PO ×2 (09:38→17:44)
[2022-08-24] MEDS: duloxetine 60 mg Capsule PO (09:38)
[2022-08-24] MEDS: zonisamide 100 MG Capsule PO (09:38)
[2022-08-24] MEDS: thiamine 100 mg Tablet PO (09:38)
[2022-08-24] MEDS: cyanocobalamin 1,000 mcg Tablet 1000 MCG PO (09:38)
[2022-08-24] MEDS: nystatin 100,000 unit/mL UDC 5 mL 100000 UNIT PO ×4 (09:39→20:36)
--- NOTE | 2022-08-24 10:41 | PC.CHAP ---
Pastoral Care Encounter/Spiritual Assessment Type of Contact [] Declined circular knitter visit [] Patient/Family/Request visit [] Outpatient visit [] Follow-up visit [] Physician referral [] Code/Alert [x] Routine visit [] Staff referral [] Actively dying [] Patient sleeping [] Family support [] [] Out of room [] Palliative care [] [] Receiving care in room [] Pre-surgical visit [] Trauma [] Long length of stay [] ICU visit [] Other: Relational/Emotional Strength [x] Patient feels connected with others/family/visitors/staff [] Distress [] Loneliness/isolation [] Abandonment Spirituality of Patient [x] Person of Alexandra [] Attends Episcopal of their Alexandra [x] Believes in Prayer [] Reads Bible or Shinto materials [] There are Spiritual issues to be addressed [employer] Interventions [x] Prayer [] Active listening [] Non-anxious presence [] Spiritual/emotional support [] Crisis/trauma care [] Spiritual counseling [] Bereavement support [] Provided bereavement packet [] Provided Bible/devotional materials [] Provided toy/stuffed animal, coloring book to patient or family member [] Provided Communion [] Anointing/Olivia [] Salvation [x] Completed spiritual assessment [] Other: Impact on Illness or Injury [] Angry [] Fearful [] Anxious [] Often cries [] Exhaustion [] Unable to work [] Unable to attend sabianist [] Unable to walk/stand [] Unable to read [] Unable to drive [] Unable to eat/drink [] Unable to sleep [] Unable to be with family [] Patient intubated [] Other: Summary Time spent with patient 1`10 min
[2022-08-24] MEDS: potassium chloride oral liq 20 mEq/15 mL UDC 40 MEQ PO ×2 (11:06→17:44)
[2022-08-24 11:36] LABS: Glucose Point of Care 98 mg/dL (70-110)
[2022-08-24] MEDS: ipratropium-albuterol 3 mL Neb INHALATION ×2 (14:42→20:30)
--- NOTE | 2022-08-24 15:11 | P.PN_ITS ---
Subjective Subjective: No acute events overnight. Patient has remained hemodynamically stable and afebrile. Denies any nausea, vomiting, headache. at bedside. As per nurse patient having occasional episodes of confusion which seems to be her baseline. On examination patient is alert to self, place. States not hungry but as her did eat. Patient did state that she drank protein shakes today. Patient has been refusing to work with physical therapy to offer counseling did work with physical therapy yesterday in the afternoon. Patient pulled out the NG tube yesterday morning. Since then has been able to tolerate liquid diet appropriately. Medications: Reviewed: Yes Vitals/I&O/Wt Last Vital Signs Temp 97.8 F 08/24/22 12:00 Pulse 100 08/24/22 14:49 Resp 22 H 08/24/22 14:42 BP 129/85 08/24/22 12:00 Pulse Ox 94 08/24/22 14:42 O2 Del Method 08/24/22 14:42 O2 Flow Rate 2 08/24/22 10:00 FiO2 30 08/21/22 09:42 08/24/22 08/24/22 08/24/22 06:59 14:59 22:59 Intake Total 480 / 480 Balance 480 / 480 Physical Exam Narrative: Constitutional: AAOx3, anxious, chronically ill-appearing, physical deconditioning HEENT: Bitemporal wasting, extraocular movements intact, moist mucous membranes Neck: Supple Respiratory: Bibasilar crackles, no wheezes, no accessory muscle use Cardiovascular: Regular rate and rhythm, no gallops or rubs Abdomen: Soft, nontender, doughy texture, positive bowel sounds Extremities: Trace edema bilaterally in lower extremities, muscle wasting noted Skin: Scattered sores and bruises in different stages of healing with iatrogenic changes noted to the upper extremities in particular from blood draws Neuro: Speech clear, face symmetric, moves all extremities, no involuntary movements noted Psych: Flat affect Urinary Catheter Management: Dodd: Cath Placed During This Visit: yes Reason for Continuing Indwelling Catheter: Hospice/Comfort/Palliative Care Urinary Catheter Date of Insertion: 08/11/22 Urinary Catheter Time of Insertion: 00:20 Data : 08/24/22 03:18 08/24/22 03:18 A&P Assessment and plan (1) Respiratory failure with hypoxia: Secondary to aspiration pneumonitis. Keep saturation over 88%. Sputum cultures so far negative. Cultures from bronch negative. MRSA negative. Patient has finished a course of antibiotics with vancomycin and imipenem. Aggressive pulmonary toilet with incentive spirometry and flutter valve. Status: Acute (2) Nausea and vomiting: Most likely secondary to noncompliant with dietary intake in setting of post gastric bypass status leading to extensive food product collection at the junction causing pseudoobstruction of distal esophagus. Follows up with Dr. Ortiz as an outpatient. Post gastric bypass surgery more than 20 years ago. Most recent endoscopy in July 2022 which did not show any concern for hiatal hernia along with healing gastric ulcers. Nausea and vomiting currently secondary to extensive food products, bezoar like material seen in the upper GI series along with dilated distal esophagus versus hiatal hernia. Post EGD on 08/11. Food particles pushed through the junction. Protonix 40 mg IV twice daily, Carafate before meals and at bedtime. LFTs have at baseline. Bilirubin around 1.5. Seems to be at baseline. Postcholecystectomy. NG tube removed by patient yesterday. Advance diet as per swallow evaluation. Ensure with each meals. Status: Acute (3) Pneumonia: Treatment as #1. Status: Acute Qualifiers: Pneumonia type: aspiration pneumonia (4) Severe protein-energy malnutrition: With A1c of 3.7, total cholesterol of 66. In setting of history of gastric bypass. Ensure with each meals. Patient will need to follow-up with Dr. Ortiz as an outpatient for further evaluation and if need be for G-tube placement. Status: Acute (5) Hypernatremia: Resolved. Status: Acute (6) Status post gastric bypass for obesity: Supposed to eat frequent small meals but as evidenced by what she ate in the emergency room I think she probably eats more volume than she should at times resulting in frequent vomiting in addition to impact from reflux issues. Has seen Dr. Ortiz on an outpatient basis for a while. Status: Chronic (7) Grade I diastolic dysfunction: With diffuse body wall anasarca. Described pulmonary effusions presently felt to likely be secondary to aspiration. Has recently been started on diuretic therapy though it was held at discharge earlier this week after stay with almost 8 L negative fluid balance and someone with known orthostatic hypotension and frequent falls. Echocardiogram within the last 10 days showed an ejection fraction of 65%. Continue to monitor intake versus output. Repeat Lasix 40 mg p.o. once. In system patient is around 9 L negative but appears euvolemic currently. Status: Chronic (8) Orthostatic hypotension: Chronic diagnosis, follows with Dr. Pack. He is on midodrine. Not on Northera currently which was recently prescribed. Review of prior discharge summary shows that fludrocortisone was discontinued earlier this week. Cortisol level elevated. Not sure of diagnosis of adrenal insufficiency. Most likely patient not getting Northera as an outpatient as still awaiting prior authorization. Change dose of hydrocortisone to 5 mg twice daily. Status: Chronic (9) Hypothyroidism: On chronic levothyroxine Status: Chronic Qualifiers: Hypothyroidism type: acquired Qualified Code(s): E03.9 - Hypothyroidism, unspecified (10) Macrocytic anemia: Status: Chronic (11) Esophageal hiatal hernia: Status: Chronic (12) Gastric bezoar: Status: Acute Plan Analgesia: Tylenol as needed Glycemic control: Not needed Nutrition: Tube feeds with Jevity. Dietitian consult CODE STATUS: Discussed in detail with patient. She wants to remain full code for now. PUD prophylaxis: Protonix DVT prophylaxis: Lovenox 40 mg daily. Discharge planning: Patient not working appropriately with physical therapy. Has been having episodes of noncompliance. Discussed in detail with patient's at bedside. Plan again home health versus SNF. Most likely discharge home health for further rehabitation with physical therapy. Patient has been agreeable. Case management alerted. Plan to discharge within next 24 to 48 hours as patient is medically stable but awaiting safe discharge planning now. Continue with care at [facility] Guarded prognosis given severe protein energy malnutrition. Care discussed in detail with patient's spouse at bedside. Plan for day: Continue to hold off on antibiotics and monitor for hemodynamics and fevers. Continue to increase oral intake and advance as per swallow evaluation. For now continue with tube feeds at current rate of 20 cc/h. Physical therapy, out of bed to chair. For now plan is to discharge to SNF for further rehabitation. Patient and is agreeable. The patient is not working with physical therapy well. Will application counselor patient in detail regarding need for physical therapy participation for favorable placement. Transfer to [facility] without telemetry. Continue to hold off on gabapentin and mirtazapine. Continue with midodrine and hydrocortisone 5 mg twice daily. This documentation was created by dragon vibrator equipment tester software. Every effort was made to ensure accuracy of vibrator equipment tester. Any obvious errors or omissions should be clarified with the author of the document. Attestations Medical Necessity Statement*: Requires further hospitalization for management of severe protein energy malnutrition, physical deconditioning in a patient with recovering hypoxic respiratory failure from aspiration pneumonia in setting of gastric bypass while safe discharge planning is sought. Time Spent in Patient Care: Greater than 35 minutes Coding Level of Care Code Acute Machine Bunch Maker for Chg Fwd Diagnoses Respiratory failure with hypoxia J96.91 Nausea and vomiting R11.2 Pneumonia J18.9 Pneumonia type: aspiration pneumonia Severe protein-energy malnutrition E43 Hypernatremia E87.0 Status post gastric bypass for obesity Z98.84 Grade I diastolic dysfunction I51.89 Orthostatic hypotension I95.1 Hypothyroidism E03.9 Hypothyroidism type: acquired Macrocytic anemia D53.9 Esophageal hiatal hernia K44.9 Gastric bezoar T18.2XXA
[2022-08-24 17:10] LABS: Glucose Point of Care 120 mg/dL (70-110)
[2022-08-24] MEDS: budesonide 0.5 mg/2 mL Neb INHALATION (20:30)
[2022-08-24] MEDS: enoxaparin 40 mg/0.4 mL Syringe SUBCUT (20:36)
[2022-08-24] MEDS: magnesium hydroxide 30 mL UDC PO (20:37)
[2022-08-24 21:50] LABS: Glucose Point of Care 114 mg/dL (70-110)
[2022-08-25] VITALS: BP 122/82; PULSE 99; RESP 18; TEMP 36.4; O2SAT 92
[2022-08-25 03:40] VITALS: O2SAT 94
[2022-08-25 04:00] VITALS: BP 128/86; PULSE 100; RESP 18; TEMP 36.3; O2SAT 91
[2022-08-25 04:00] LABS: Basophils # 0.1 10^3/uL (0.0-0.1); Basophils % 0.5 %; Eosinophils % 0.1 %; Hematocrit 28.4 % (37.0-47.0); Hemoglobin 8.8 g/dL (11.5-15.3); Lymphocytes # 2.7 10^3/uL (0.8-4.8); Lymphocytes % 26.9 %; Mean Corpuscular Hemoglobin 34.2 pg (28.0-34.0); Mean Corpuscular Volume 110.5 fl (81-99); Mean Platelet Volume 11.2 fL (7.4-10.4); Monocytes # 1.2 10^3/uL (0.2-0.9); Monocytes % 11.6 %; Neutrophils # 5.86 10^3/uL (1.8-7.7); Neutrophils % 58.5 %; Nucleated Red Blood Cells % 0 %; Platelet Count 468 10^3/cmm (130-400); Red Blood Count 2.57 10^6/uL (4.1-5.3)
[2022-08-25 04:26] LABS: Alanine Aminotransferase 21 U/L (0-33); Albumin Level 2.9 g/dL (3.5-5.2); Alkaline Phosphatase 115 U/L (35-105); Anion Gap 13.5 (5-19); Aspartate Amino Transferase 37 U/L (0-32); Blood Urea Nitrogen 5 mg/dL (8-23); Calcium 8.6 mg/dL (8.5-10.5); Carbon Dioxide 25 mmol/L (22-29); Chloride 111 mmol/L (98-107); Globulin 1.8 g/dL (1.3-4.6); Glomerular Filtration Rate 161.7 mL/min (90-130); Glucose 83 mg/dL (65-115); Osmolality Calculated 298 mOsm/kg (285-295); Potassium 3.5 mmol/L (3.5-5.1); Sodium 146 mmol/L (136-145); Total Bilirubin 0.6 mg/dL (0.15-1.2); Total Protein 4.7 g/dL (6.6-8.7)
[2022-08-25] MEDS: chlorhexidine gluconate 4% Btl 118 mL 1 APPLIC TOPICAL (04:45)
[2022-08-25] MEDS: pantoprazole 40 mg SDV IVP ×2 (05:50→17:51)
[2022-08-25] MEDS: sucralfate 1 gm/10 mL Oral Liq UDC PO (05:50)
[2022-08-25] MEDS: midodrine 5 mg TABLET 10 MG PO (05:50)
[2022-08-25] MEDS: levothyroxine 125 mcg Tablet PO (05:51)
[2022-08-25 06:51] LABS: Glucose Point of Care 89 mg/dL (70-110)
[2022-08-25 07:55] VITALS: BP 124/83; PULSE 101; RESP 18; TEMP 36.6; O2SAT 92
[2022-08-25] MEDS: BuSPIRONE 10 mg Tablet 30 MG PO (08:01)
[2022-08-25] MEDS: multivitamin therapeutic Tablet 1 TAB PO (08:01)
[2022-08-25] MEDS: duloxetine 60 mg Capsule PO (08:01)
[2022-08-25] MEDS: cyanocobalamin 1,000 mcg Tablet 1000 MCG PO (08:01)
[2022-08-25] MEDS: zinc gluconate 50 mg Tablet PO (08:01)
[2022-08-25] MEDS: ascorbic acid 500 mg Tablet PO (08:01)
[2022-08-25] MEDS: zonisamide 100 MG Capsule PO (08:02)
[2022-08-25] MEDS: thiamine 100 mg Tablet PO (08:02)
--- NOTE | 2022-08-25 08:51 | PC.SOCIAL ---
IMM update Imm updated with patient at bedside. Copy of page 2 provided. Patient verbalized understanding. Copy in chart initialed, dated and timed.
--- NOTE | 2022-08-25 12:05 | PM.PN ---
Subjective Subjective: No acute events overnight. Patient has been tolerating her meals well. As per the nurse has been eating her meals on and off. Today morning took her medications but has been declining medications on and off in between as well. Has remained afebrile. Today morning as per the nurse patient has been slightly agitated. On examination patient lying comfortably in bed, looking at television. Answering questions in a very short manner. When asked to look at me she says she does not feel like. When asking if she wants to eat something she said does not feel like. She is able to recognize me, is alert and oriented x3 but states she is not in the mood to talk today or comply with any directions given to her. Medications: Reviewed: Yes Vitals/I&O/Wt Last Vital Signs Temp 97.8 F 08/25/22 07:55 Pulse 101 H 08/25/22 07:55 Resp 18 08/25/22 07:55 BP 124/83 08/25/22 07:55 Pulse Ox 92 08/25/22 07:55 O2 Del Method 08/25/22 07:55 O2 Flow Rate 2 08/24/22 20:00 FiO2 30 08/21/22 09:42 08/24/22 08/25/22 08/25/22 22:59 06:59 14:59 Intake Total 120 / 600 Balance 120 / 600 Physical Exam Urinary Catheter Management: Dodd: Cath Placed During This Visit: yes, but has since been removed by the nurse Reason for Continuing Indwelling Catheter: Hospice/Comfort/Palliative Care Urinary Catheter Date of Insertion: 08/11/22 Urinary Catheter Time of Insertion: 00:20 Date Urinary Catheter Removed: 08/24/22 Time Urinary Catheter Discontinued: 05:00 Data : 08/25/22 03:13 08/25/22 03:13 A&P Assessment and plan (1) Respiratory failure with hypoxia: Secondary to aspiration pneumonitis. Keep saturation over 88%. Sputum cultures so far negative. Cultures from bronch negative. MRSA negative. Patient has finished a course of antibiotics with vancomycin and imipenem. Aggressive pulmonary toilet with incentive spirometry and flutter valve. (2) Nausea and vomiting: Most likely secondary to noncompliant with dietary intake in setting of post gastric bypass status leading to extensive food product collection at the junction causing pseudoobstruction of distal esophagus. Follows up with Dr. Ortiz as an outpatient. Post gastric bypass surgery more than 20 years ago. Most recent endoscopy in July 2022 which did not show any concern for hiatal hernia along with healing gastric ulcers. Nausea and vomiting currently secondary to extensive food products, bezoar like material seen in the upper GI series along with dilated distal esophagus versus hiatal hernia. Post EGD on 08/11. Food particles pushed through the junction. Protonix 40 mg IV twice daily, Carafate before meals and at bedtime. LFTs have at baseline. Bilirubin around 1.5. Seems to be at baseline. Postcholecystectomy. NG tube removed by patient yesterday. Advance diet as per swallow evaluation. Ensure with each meals. (3) Pneumonia: Treatment as #1. Qualifiers: Pneumonia type: aspiration pneumonia (4) Severe protein-energy malnutrition: With A1c of 3.7, total cholesterol of 66. In setting of history of gastric bypass. Ensure with each meals. Patient will need to follow-up with Dr. Ortiz as an outpatient for further evaluation and if need be for G-tube placement. (5) Hypernatremia: Resolved. (6) Status post gastric bypass for obesity: Supposed to eat frequent small meals but as evidenced by what she ate in the emergency room I think she probably eats more volume than she should at times resulting in frequent vomiting in addition to impact from reflux issues. Has seen Dr. Ortiz on an outpatient basis for a while. (7) Grade I diastolic dysfunction: With diffuse body wall anasarca. Described pulmonary effusions presently felt to likely be secondary to aspiration. Has recently been started on diuretic therapy though it was held at discharge earlier this week after stay with almost 8 L negative fluid balance and someone with known orthostatic hypotension and frequent falls. Echocardiogram within the last 10 days showed an ejection fraction of 65%. Continue to monitor intake versus output. Repeat Lasix 40 mg p.o. once. In system patient is around 9 L negative but appears euvolemic currently. (8) Orthostatic hypotension: Chronic diagnosis, follows with Dr. Pack. He is on midodrine. Not on Northera currently which was recently prescribed. Review of prior discharge summary shows that fludrocortisone was discontinued earlier this week. Cortisol level elevated. Not sure of diagnosis of adrenal insufficiency. Most likely patient not getting Northera as an outpatient as still awaiting prior authorization. Change dose of hydrocortisone to 5 mg twice daily. (9) Hypothyroidism: On chronic levothyroxine Qualifiers: Hypothyroidism type: acquired Qualified Code(s): E03.9 - Hypothyroidism, unspecified (10) Macrocytic anemia: (11) Esophageal hiatal hernia: (12) Gastric bezoar: Plan Analgesia: Tylenol as needed Glycemic control: Not needed Nutrition: Tube feeds with Jevity. Dietitian consult CODE STATUS: Discussed in detail with patient. She wants to remain full code for now. PUD prophylaxis: Protonix DVT prophylaxis: Lovenox 40 mg daily. Discharge planning: Patient not working appropriately with physical therapy. Has been having episodes of noncompliance. Discussed in detail with patient's at bedside. Plan again home health versus SNF. Most likely discharge home health for further rehabitation with physical therapy. Patient has been agreeable. Case management alerted. Plan to discharge within next 24 to 48 hours as patient is medically stable but awaiting safe discharge planning now. Continue with care at [facility] floor Guarded prognosis given severe protein energy malnutrition. Care discussed in detail with patient's spouse at bedside. Plan for day: Patient back to baseline. Does have slight agitation today which could be her baseline as well as per my conversation with her , could be slight worsening secondary to mild hypernatremia today for withdrawing from her baseline mirtazapine. Will asp psych re-evaluation Restart home dose of mirtazapine. Continue to hold off on gabapentin For now start on half NS at 50 cc an hour as sodium is mildly elevated today. Will repeat CMP in the morning. Continue other medications as before. Diet advanced as per swallow evaluation. This documentation was created by [facility] language asst software. Every effort was made to ensure accuracy of language asst. Any obvious errors or omissions should be clarified with the author of the document. Attestations Medical Necessity Statement*: Requires further hospitalization for management of hypernatremia, aspiration pneumonia which is resolving, resolving hypoxia in setting of gastric bypass surgery, severe physical deconditioning Time Spent in Patient Care: 16 - 35 minutes Coding Level of Care Code Acute Wage Hand for Chg Fwd Diagnoses Respiratory failure with hypoxia J96.91 Nausea and vomiting R11.2 Pneumonia J18.9 Pneumonia type: aspiration pneumonia Severe protein-energy malnutrition E43 Hypernatremia E87.0 Status post gastric bypass for obesity Z98.84 Grade I diastolic dysfunction I51.89 Orthostatic hypotension I95.1 Hypothyroidism E03.9 Hypothyroidism type: acquired Macrocytic anemia D53.9 Esophageal hiatal hernia K44.9 Gastric bezoar T18.2XXA
[2022-08-25] MEDS: sodium chloride 0.45% 1,000 ML 50 ML IV (13:30)
--- NOTE | 2022-08-25 13:33 | PC.NURSE ---
Patient reports pain all over but refuses any medication stating, I do not want anything. Spouse in room.
--- NOTE | 2022-08-25 17:17 | PC.SLP ---
COMPUTING SYSTEMS MECHANIC attempted follow-up, however, the patient does not want to try anything to eat for supper. Plan will be to continue with pur?ed diet at this time.
[2022-08-25] MEDS: dextrose 50% syringe 50 mL IVP (20:59)
[2022-08-25] MEDS: enoxaparin 40 mg/0.4 mL Syringe SUBCUT (21:25)
[2022-08-25] MEDS: dextrose 5%-sod chloride 0.9% 1,000 ML 75 ML IV (21:25)
[2022-08-25 21:30] LABS: Glucose Point of Care 78 mg/dL (70-110)
[2022-08-25 22:00] VITALS: PULSE 101
[2022-08-26] VITALS (7 sets, daily range): BP systolic 121–124; BP diastolic 70–78; PULSE 90–101; RESP 18; TEMP 36.7–36.8; O2SAT 93–99
[2022-08-26] MEDS: chlorhexidine gluconate 4% Btl 118 mL 1 APPLIC TOPICAL (00:09)
--- NOTE | 2022-08-26 00:55 | PC.NURSE ---
Patient continues to refuse vital signs. States Get the hell away from me, I don't care. after explaining why vital signs are needed. Patient also stated Get out, get out, get out of here!
--- NOTE | 2022-08-26 04:00 | PC.NURSE ---
Patient began hitting and kicking while trying to measure blood pressure. Said Get the fuck out! Leave me the fuck alone! I don't give a fuck! Multiple times. Repositioned and cleaned patient, then left the room after resetting bed alarm and ensuring the patient was safe.
[2022-08-26 04:21] LABS: Alanine Aminotransferase 21 U/L (0-33); Albumin Level 2.8 g/dL (3.5-5.2); Alkaline Phosphatase 115 U/L (35-105); Anion Gap 11.1 (5-19); Aspartate Amino Transferase 35 U/L (0-32); Blood Urea Nitrogen 4 mg/dL (8-23); Calcium 8.3 mg/dL (8.5-10.5); Carbon Dioxide 24 mmol/L (22-29); Chloride 116 mmol/L (98-107); Globulin 1.8 g/dL (1.3-4.6); Glomerular Filtration Rate 225.4 mL/min (90-130); Glucose 99 mg/dL (65-115); Osmolality Calculated 303 mOsm/kg (285-295); Potassium 3.1 mmol/L (3.5-5.1); Sodium 148 mmol/L (136-145); Total Bilirubin 0.6 mg/dL (0.15-1.2); Total Protein 4.6 g/dL (6.6-8.7)
[2022-08-26] MEDS: pantoprazole 40 mg SDV IVP ×2 (05:28→18:18)
--- NOTE | 2022-08-26 05:54 | PC.NURSE ---
pt refused all oral meds. refused to take anything oral, resistive to care, able to reposition side to side q 2 hours, pt turns self to supine when turned on right side, remains on left side when positioned on left side
[2022-08-26 06:39] LABS: Glucose Point of Care 98 mg/dL (70-110)
--- NOTE | 2022-08-26 09:09 | PC.NURSE ---
Patient refused all PO meds this morning.
[2022-08-26] MEDS: dextrose 5%-sod chloride 0.9% 1,000 ML 75 ML IV ×2 (10:51→23:47)
[2022-08-26 11:08] LABS: Glucose Point of Care 111 mg/dL (70-110)
--- NOTE | 2022-08-26 13:09 | P.PN_ITS ---
Subjective Subjective: No complaints overnight. Patient has remained hemodynamically stable and afebrile. Denies any nausea, vomiting, headache. Laying comfortably in bed on examination. Wakes up to verbal cue. Awake and alert on waking up. As per the nurses patient continues to refuse medications and on and off her diet. When asked to the patient she states she does not feel like doing anything. Patient is awaiting psychiatric reevaluation. Medications: Reviewed: Yes Vitals/I&O/Wt Last Vital Signs Temp 98.2 F 08/26/22 11:16 Pulse 101 H 08/26/22 11:16 Resp 18 08/26/22 11:16 BP 121/71 08/26/22 11:16 Pulse Ox 93 08/26/22 11:16 O2 Del Method 08/26/22 11:16 O2 Flow Rate 2 08/24/22 20:00 FiO2 30 08/21/22 09:42 08/25/22 08/26/22 08/26/22 22:59 06:59 14:59 Intake Total 0 / 0 0 / 0 1240 / 1240 Balance 0 / 0 0 / 0 1240 / 1240 Physical Exam Urinary Catheter Management: Dodd: Cath Placed During This Visit: yes, but has since been removed by the nurse Reason for Continuing Indwelling Catheter: Hospice/Comfort/Palliative Care Urinary Catheter Date of Insertion: 08/11/22 Urinary Catheter Time of Insertion: 00:20 Date Urinary Catheter Removed: 08/24/22 Time Urinary Catheter Discontinued: 05:00 Data : 08/25/22 03:13 08/26/22 03:45 A&P Assessment and plan (1) Respiratory failure with hypoxia: Secondary to aspiration pneumonitis. Keep saturation over 88%. Sputum cultures so far negative. Cultures from bronch negative. MRSA negative. Patient has finished a course of antibiotics with vancomycin and imipenem. Aggressive pulmonary toilet with incentive spirometry and flutter valve. (2) Nausea and vomiting: Most likely secondary to noncompliant with dietary intake in setting of post gastric bypass status leading to extensive food product collection at the junction causing pseudoobstruction of distal esophagus. Follows up with Dr. Ortiz as an outpatient. Post gastric bypass surgery more than 20 years ago. Most recent endoscopy in July 2022 which did not show any concern for hiatal hernia along with healing gastric ulcers. Nausea and vomiting currently secondary to extensive food products, bezoar like material seen in the upper GI series along with dilated distal esophagus versus hiatal hernia. Post EGD on 08/11. Food particles pushed through the junction. Protonix 40 mg IV twice daily, Carafate before meals and at bedtime. LFTs have at baseline. Bilirubin around 1.5. Seems to be at baseline. Postcholecystectomy. NG tube removed by patient yesterday. Advance diet as per swallow evaluation. Ensure with each meals. (3) Pneumonia: Treatment as #1. Qualifiers: Pneumonia type: aspiration pneumonia (4) Severe protein-energy malnutrition: With A1c of 3.7, total cholesterol of 66. In setting of history of gastric bypass. Ensure with each meals. Patient will need to follow-up with Dr. Ortiz as an outpatient for further evaluation and if need be for G-tube placement. (5) Hypernatremia: Resolved. (6) Status post gastric bypass for obesity: Supposed to eat frequent small meals but as evidenced by what she ate in the emergency room I think she probably eats more volume than she should at times resulting in frequent vomiting in addition to impact from reflux issues. Has seen Dr. Ortiz on an outpatient basis for a while. (7) Grade I diastolic dysfunction: With diffuse body wall anasarca. Described pulmonary effusions presently felt to likely be secondary to aspiration. Has recently been started on diuretic therapy though it was held at discharge earlier this week after stay with almost 8 L negative fluid balance and someone with known orthostatic hypotension and frequent falls. Echocardiogram within the last 10 days showed an ejection fraction of 65%. Continue to monitor intake versus output. Repeat Lasix 40 mg p.o. once. In system patient is around 9 L negative but appears euvolemic currently. (8) Orthostatic hypotension: Chronic diagnosis, follows with Dr. Pack. He is on midodrine. Not on Northera currently which was recently prescribed. Review of prior discharge summary shows that fludrocortisone was discontinued earlier this week. Cortisol level elevated. Not sure of diagnosis of adrenal insufficiency. Most likely patient not getting Northera as an outpatient as still awaiting prior authorization. Change dose of hydrocortisone to 5 mg twice daily. (9) Hypothyroidism: On chronic levothyroxine Qualifiers: Hypothyroidism type: acquired Qualified Code(s): E03.9 - Hypothyroidism, unspecified (10) Macrocytic anemia: (11) Esophageal hiatal hernia: (12) Gastric bezoar: Plan Analgesia: Tylenol as needed Glycemic control: Not needed Nutrition: Tube feeds with Jevity. Dietitian consult CODE STATUS: Discussed in detail with patient. She wants to remain full code for now. PUD prophylaxis: Protonix DVT prophylaxis: Lovenox 40 mg daily. Discharge planning: Patient not working appropriately with physical therapy. Has been having episodes of noncompliance. Discussed in detail with patient's at bedside. Plan again home health versus SNF. Most likely discharge home health for further rehabitation with physical therapy. Patient has been agreeable. Case management alerted. Plan to discharge within next 24 to 48 hours as patient is medically stable but awaiting safe discharge planning now. Continue with care at [facility] floor Guarded prognosis given severe protein energy malnutrition. Care discussed in detail with patient's spouse at bedside. Plan for day: Awaiting psychiatry reevaluation. Patient back to baseline. Does have slight agitation today which could be her baseline as well as per my conversation with her , could be slight worsening secondary to mild hypernatremia today for withdrawing from her bas josiah mirtazapine. Have asked nurse to retry to give medications once family at bedside. Will asp psych re-evaluation Restart home dose of mirtazapine. Continue to hold off on gabapentin Switch fluids to D5 NS at 50 cc/h. Replete magnesium and phosphorus along with potassium today Will repeat CMP, magnesium and phosphorus in the morning. Continue other medications as before. Diet advanced as per swallow evaluation. This documentation was created by [employer] winding rack operator software. Every effort was made to ensure accuracy of winding rack operator. Any obvious errors or omissions should be clarified with the author of the document. Attestations Medical Necessity Statement*: Requires further hospitalization for management of hypernatremia, psychosis in a patient who was admitted with hypoxic respiratory failure secondary to aspiration pneumonia, due to pseudoobstruction of gastric outlet from gastric bezoar s/p gastric bypass Time Spent in Patient Care: 16 - 35 minutes Coding Level of Care Code Acute Vegetable Farming Supervisor for Chg Fwd Diagnoses Respiratory failure with hypoxia J96.91 Nausea and vomiting R11.2 Pneumonia J18.9 Pneumonia type: aspiration pneumonia Severe protein-energy malnutrition E43 Hypernatremia E87.0 Status post gastric bypass for obesity Z98.84 Grade I diastolic dysfunction I51.89 Orthostatic hypotension I95.1 Hypothyroidism E03.9 Hypothyroidism type: acquired Macrocytic anemia D53.9 Esophageal hiatal hernia K44.9 Gastric bezoar T18.2XXA
[2022-08-26] MEDS: magnesium sulfate premix 2 GM/50 ML PIGGYBACK IV (13:29)
[2022-08-26 16:57] LABS: Glucose Point of Care 130 mg/dL (70-110)
--- NOTE | 2022-08-26 17:35 | PC.NURSE ---
Patient offered assistance with supper tray, patient refused meal and PO meds at this time. Call light is within reach and bed alarm is set.
[2022-08-26] MEDS: nystatin 100,000 unit/mL UDC 5 mL 100000 UNIT PO (20:40)
[2022-08-26] MEDS: magnesium hydroxide 30 mL UDC PO (20:40)
[2022-08-26] MEDS: mirtazapine 15 mg Tablet PO (20:40)
[2022-08-26] MEDS: acetaminophen 325 mg/10.15 mL UDC PO (20:40)
[2022-08-26 21:33] LABS: Glucose Point of Care 104 mg/dL (70-110)
[2022-08-26] MEDS: enoxaparin 40 mg/0.4 mL Syringe SUBCUT (21:45)
[2022-08-26] MEDS: ondansetron 2 mg/ML SDV 2 mL 4 MG IVP (22:03)
[2022-08-27] VITALS (12 sets, daily range): BP systolic 108–139; BP diastolic 59–89; PULSE 78–120; RESP 15–22; TEMP 36.6–37.6; O2SAT 88–95
[2022-08-27] MEDS: chlorhexidine gluconate 4% Btl 118 mL 1 APPLIC TOPICAL (01:56)
[2022-08-27 04:56] LABS: Basophils % 0.4 %; Eosinophils % 0.1 %; Hematocrit 27.9 % (37.0-47.0); Hemoglobin 8.4 g/dL (11.5-15.3); Lymphocytes # 2.3 10^3/uL (0.8-4.8); Lymphocytes % 23.8 %; Mean Corpuscular HGB Conc 30.1 g/dL (30.0-36.0); Mean Corpuscular Hemoglobin 34.1 pg (28.0-34.0); Mean Corpuscular Volume 113.4 fl (81-99); Monocytes # 1.2 10^3/uL (0.2-0.9); Monocytes % 12.4 %; Neutrophils # 5.95 10^3/uL (1.8-7.7); Neutrophils % 62.4 %; Nucleated Red Blood Cells % 0 %; Platelet Count 401 10^3/cmm (130-400); Red Blood Count 2.46 10^6/uL (4.1-5.3); Red Cell Distribution Width 18.6 % (12.1-15.1); White Blood Count 9.6 10^3/uL (4.0-10.0)
[2022-08-27 05:27] LABS: Alanine Aminotransferase 21 U/L (0-33); Albumin Level 2.7 g/dL (3.5-5.2); Alkaline Phosphatase 113 U/L (35-105); Anion Gap 12.9 (5-19); Aspartate Amino Transferase 31 U/L (0-32); Blood Urea Nitrogen 4 mg/dL (8-23); Calcium 7.9 mg/dL (8.5-10.5); Carbon Dioxide 22 mmol/L (22-29); Chloride 118 mmol/L (98-107); Glomerular Filtration Rate 225.4 mL/min (90-130); Glucose 103 mg/dL (65-115); Magnesium 2.8 mg/dL (1.7-2.3); Osmolality Calculated 307 mOsm/kg (285-295); Phosphorus 3.2 mg/dL (2.5-4.5); Sodium 150 mmol/L (136-145); Total Bilirubin 0.7 mg/dL (0.15-1.2); Total Protein 4.7 g/dL (6.6-8.7)
[2022-08-27 05:41] LABS: Potassium 2.9 mmol/L (3.5-5.1)
[2022-08-27] MEDS: levothyroxine 125 mcg Tablet PO (05:43)
[2022-08-27] MEDS: midodrine 5 mg TABLET 10 MG PO (05:43)
[2022-08-27] MEDS: sucralfate 1 gm/10 mL Oral Liq UDC PO (05:43)
--- NOTE | 2022-08-27 05:54 | PC.NURSE ---
potassium 2.9, Na 150, new order for K rider and stop fluids and recheck Na at 0800
[2022-08-27] MEDS: pantoprazole 40 mg SDV IVP ×2 (05:58→17:37)
[2022-08-27] MEDS: lidocaine 1% 5 ML in potassium chloride premix 100 ML 25 ML IV (06:13)
[2022-08-27 06:49] LABS: Glucose Point of Care 92 mg/dL (70-110)
[2022-08-27 09:14] LABS: Sodium 145 mmol/L (136-145)
[2022-08-27] MEDS: BuSPIRONE 10 mg Tablet 30 MG PO ×2 (10:06→17:37)
[2022-08-27] MEDS: duloxetine 60 mg Capsule PO (10:06)
[2022-08-27] MEDS: zonisamide 100 MG Capsule PO (10:07)
[2022-08-27] MEDS: potassium chloride oral liq 20 mEq/15 mL UDC 40 MEQ PO (10:14)
--- NOTE | 2022-08-27 10:20 | P.PN_ITS ---
Subjective Subjective: Informed by physical therapist that patient does not have any motivation to get out of bed. They tried to move her to the edge of the bed and she kept refusing anything now and to leave her the way she is. Patient is definitely severely deconditioned. Rehab was recommended initially due to her prolonged hospitalization with ICU stay requiring to be intubated 2 times. Patient has refused to go to rehab at this time and would like to go home with home health. Patient's not at bedside today. Nursing staff also reported that she is refusing to take her meals. When I asked her and she said there was no particular reason. She did not answer if she had an appetite or not at this time. Patient appeared quite demotivated. Did not answer many questions. She was oriented x3. She just states that she does not feel like eating anything. She says she is on minimal to have anything to do at this time. Vitals/I&O/Wt Last Vital Signs Temp 98.6 F 08/27/22 08:00 Pulse 78 08/27/22 08:00 Resp 18 08/27/22 08:00 BP 108/59 08/27/22 08:00 Pulse Ox 95 08/27/22 08:00 O2 Del Method 08/27/22 08:00 O2 Flow Rate 2 08/26/22 20:45 FiO2 30 08/21/22 09:42 08/26/22 08/27/22 08/27/22 22:59 06:59 14:59 Intake Total 129.0909 / 1419.0909 970 / 2389.0909 Balance 129.0909 / 1419.0909 970 / 2389.0909 Physical Exam Narrative: Constitutional: AAOx3, chronically ill-appearing, physical deconditioning HEENT: Bitemporal wasting, extraocular movements intact, moist mucous membranes Respiratory: Mild bibasilar crackles at bases, no wheezes no rhonchi, no accessory muscle use, no acute distress. Cardiovascular: Regular rate and rhythm, no gallops or rubs Abdomen: Soft, nontender, doughy texture, positive bowel sounds Extremities: Trace edema bilaterally in lower extremities, muscle wasting noted Skin: Scattered sores and bruises in different stages of healing with iatrogenic changes noted to the upper extremities in particular from blood draws Neuro: Speech clear, face symmetric, moves all extremities, no involuntary movements noted Psych: Flat affect Urinary Catheter Management: Dodd: Cath Placed During This Visit: yes, but has since been removed by the nurse Reason for Continuing Indwelling Catheter: Hospice/Comfort/Palliative Care Urinary Catheter Date of Insertion: 08/11/22 Urinary Catheter Time of Insertion: 00:20 Date Urinary Catheter Removed: 08/24/22 Time Urinary Catheter Discontinued: 05:00 Data : 08/27/22 04:10 08/27/22 08:12 A&P Assessment and plan (1) Respiratory failure with hypoxia: Secondary to aspiration pneumonitis. Keep saturation over 88%. Sputum cultures so far negative. Cultures from bronch negative. MRSA negative. Patient has finished a course of antibiotics with vancomycin and imipenem. Aggressive pulmonary toilet with incentive spirometry and flutter valve. (2) Nausea and vomiting: Most likely secondary to noncompliant with dietary intake in setting of post gastric bypass status leading to extensive food product collection at the junction causing pseudoobstruction of distal esophagus. Follows up with Dr. Ortiz as an outpatient. Post gastric bypass surgery more than 20 years ago. Most recent endoscopy in July 2022 which did not show any concern for hiatal hernia along with healing gastric ulcers. Nausea and vomiting currently secondary to extensive food products, bezoar like material seen in the upper GI series along with dilated distal esophagus versus hiatal hernia. Post EGD on 08/11. Food particles pushed through the junction. Protonix 40 mg IV twice daily, Carafate before meals and at bedtime. LFTs have at baseline. Bilirubin around 1.5. Seems to be at baseline. Postcholecystectomy. NG tube removed by patient yesterday. Advance diet as per swallow evaluation. Ensure with each meals. (3) Pneumonia: Treatment as #1. Qualifiers: Pneumonia type: aspiration pneumonia (4) Severe protein-energy malnutrition: With A1c of 3.7, total cholesterol of 66. In setting of history of gastric bypass. Ensure with each meals. Patient will need to follow-up with Dr. Ortiz as an outpatient for further evaluation and if need be for G-tube placement. (5) Hypernatremia: Resolved. (6) Status post gastric bypass for obesity: Supposed to eat frequent small meals but as evidenced by what she ate in the emergency room I think she probably eats more volume than she should at times resulting in frequent vomiting in addition to impact from reflux issues. Has seen Dr. Ortiz on an outpatient basis for a while. (7) Grade I diastolic dysfunction: With diffuse body wall anasarca. Described pulmonary effusions presently felt to likely be secondary to aspiration. Has recently been started on diuretic therapy though it was held at discharge earlier this week after stay with almost 8 L negative fluid balance and someone with known orthostatic hypotension and frequent falls. Echocardiogram within the last 10 days showed an ejection fraction of 65%. Continue to monitor intake versus output. Repeat Lasix 40 mg p.o. once. In system patient is around 9 L negative but appears euvolemic currently. (8) Orthostatic hypotension: Chronic diagnosis, follows with Dr. Pack. He is on midodrine. Not on Northera currently which was recently prescribed. Review of prior discharge summary shows that fludrocortisone was discontinued earlier this week. Cortisol level elevated. Not sure of diagnosis of adrenal insufficiency. Most likely patient not getting Northera as an outpatient as still awaiting prior authorization. Change dose of hydrocortisone to 5 mg twice daily. (9) Hypothyroidism: On chronic levothyroxine Qualifiers: Hypothyroidism type: acquired Qualified Code(s): E03.9 - Hypothyroidism, unspecified (10) Macrocytic anemia: (11) Esophageal hiatal hernia: (12) Gastric bezoar: Plan Analgesia: Tylenol as needed Glycemic control: Not needed Nutrition: Tube feeds with Jevity. Dietitian consult CODE STATUS: Discussed in detail with patient. She wants to remain full code for now. PUD prophylaxis: Protonix DVT prophylaxis: Lovenox 40 mg daily. Discharge planning: Patient not working appropriately with physical therapy. Has been having episodes of noncompliance. Discussed in detail with patient's at bedside. Plan again home health versus SNF. Most likely discharge home health for further rehabitation with physical therapy. Patient has been agreeable. Case management alerted. Plan to discharge within next 24 to 48 hours as patient is medically stable but awaiting safe discharge planning now. Continue with care at [facility] floor Guarded prognosis given severe protein energy malnutrition. Care discussed in detail with patient's spouse at bedside. Plan for day: Awaiting psychiatry reevaluation. Patient back to baseline. Continue D5 normal saline at 50 cc/h. Continue to replete electrolytes. Potassium 2.9 today. Will asp psych re-evaluation Restart home dose of mirtazapine. Continue to hold off on gabapentin Will repeat CMP, magnesium and phosphorus in the morning. Continue other medications as before. Diet advanced as per swallow evaluation. I have reviewed patient's chart and spoken to physical therapist and nursing staff. Patient does not have much motivation to get out of bed or move or participate with physical therapy at this time. She is pretty much bedbound and when nurses try to get her out of bed she refuses. Patient is also refused to go to rehab. 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 Patient is nutritional intake is also poor as she does not have much of an appetite. She is on mirtazapine. Eventually patient to get evaluated outpatient by general surgery for possible PEG tube placement. Patient would like to go home with home health with her . Patient does not want to get out of bed, move or participate at this time. Patient could potentially benefit from a Elmo lift which can assist with transferring her. Will await psychiatric evaluation today to see if some of her medications can be optimized. This documentation was created by [employer] activities therapist software. Every effort was made to ensure accuracy of activities therapist. Any obvious errors or omissions should be clarified with the author of the document. Attestations Medical Necessity Statement*: Plan to discharge within 24 to 48 hours once sodium has normalized and good safe discharge plan has been set up for the patient. Coding Level of Care Code Acute Music Adapter for Chg Fwd Diagnoses Respiratory failure with hypoxia J96.91 Nausea and vomiting R11.2 Pneumonia J18.9 Pneumonia type: aspiration pneumonia Severe protein-energy malnutrition E43 Hypernatremia E87.0 Status post gastric bypass for obesity Z98.84 Grade I diastolic dysfunction I51.89 Orthostatic hypotension I95.1 Hypothyroidism E03.9 Hypothyroidism type: acquired Macrocytic anemia D53.9 Esophageal hiatal hernia K44.9 Gastric bezoar T18.2XXA
[2022-08-27 11:07] LABS: Glucose Point of Care 100 mg/dL (70-110)
--- NOTE | 2022-08-27 12:08 | PC.SOCIAL ---
IMM Update pg 2 of IMM updated and reviewed w/ patient. Copy provided and Copy in chart dated and initialed.
[2022-08-27 17:24] LABS: Glucose Point of Care 90 mg/dL (70-110)
[2022-08-27] MEDS: hydrocortisone 10 mg Tablet 5 MG PO (17:37)
[2022-08-27] MEDS: ascorbic acid 500 mg Tablet PO (17:37)
[2022-08-27] MEDS: nystatin 100,000 unit/mL UDC 5 mL 100000 UNIT PO (20:48)
[2022-08-27] MEDS: magnesium hydroxide 30 mL UDC PO (20:48)
[2022-08-27] MEDS: mirtazapine 15 mg Tablet PO (20:48)
[2022-08-27 21:11] LABS: Glucose Point of Care 89 mg/dL (70-110)
[2022-08-27] MEDS: enoxaparin 40 mg/0.4 mL Syringe SUBCUT (21:51)
[2022-08-28] VITALS (8 sets, daily range): BP systolic 113–121; BP diastolic 73–79; PULSE 77–101; RESP 16–18; TEMP 36.6–37.4; O2SAT 92–98
[2022-08-28] MEDS: sucralfate 1 gm/10 mL Oral Liq UDC PO ×3 (00:22→12:54)
[2022-08-28] MEDS: chlorhexidine gluconate 4% Btl 118 mL 1 APPLIC TOPICAL (01:53)
[2022-08-28] MEDS: pantoprazole 40 mg SDV IVP (05:26)
[2022-08-28] MEDS: midodrine 5 mg TABLET 10 MG PO ×2 (06:25→12:54)
[2022-08-28] MEDS: levothyroxine 125 mcg Tablet PO (06:26)
[2022-08-28 06:54] LABS: Glucose Point of Care 80 mg/dL (70-110)
[2022-08-28] MEDS: ipratropium-albuterol 3 mL Neb INHALATION (09:01)
[2022-08-28] MEDS: budesonide 0.5 mg/2 mL Neb INHALATION (09:01)
[2022-08-28] MEDS: hydrocortisone 10 mg Tablet 5 MG PO (10:45)
[2022-08-28] MEDS: zonisamide 100 MG Capsule PO (10:45)
[2022-08-28] MEDS: thiamine 100 mg Tablet PO (10:46)
[2022-08-28] MEDS: ascorbic acid 500 mg Tablet PO (10:47)
[2022-08-28] MEDS: zinc gluconate 50 mg Tablet PO (10:47)
[2022-08-28] MEDS: BuSPIRONE 10 mg Tablet 30 MG PO (10:47)
[2022-08-28] MEDS: multivitamin therapeutic Tablet 1 TAB PO (10:48)
[2022-08-28] MEDS: nystatin 100,000 unit/mL UDC 5 mL 100000 UNIT PO (10:48)
[2022-08-28] MEDS: cyanocobalamin 1,000 mcg Tablet 1000 MCG PO (10:48)
[2022-08-28] MEDS: duloxetine 60 mg Capsule PO (10:48)
[2022-08-28] MEDS: potassium chloride oral liq 20 mEq/15 mL UDC 40 MEQ PO (10:51)
[2022-08-28 12:07] LABS: Glucose Point of Care 95 mg/dL (70-110)
--- NOTE | 2022-08-28 12:55 | PM.DCS ---
Discharge Providers Date of Admission: 08/08/22 21:54 Date of Discharge: August 28, 2022 Attending Provider at Admission: Buddy Simeon MD Attending Provider at Discharge: Rosalie Jones MD Primary Care Provider: Steve Cuellar MD Diagnoses at Discharge Discharge Diagnosis (1) Respiratory failure with hypoxia: Status: Acute (2) Nausea and vomiting: Status: Acute (3) Pneumonia: Status: Acute Qualifiers: Pneumonia type: aspiration pneumonia (4) Severe protein-energy malnutrition: Status: Acute (5) Hypernatremia: Status: Acute (6) Status post gastric bypass for obesity: Status: Chronic (7) Grade I diastolic dysfunction: Status: Chronic (8) Orthostatic hypotension: Status: Chronic (9) Hypothyroidism: Status: Chronic Qualifiers: Hypothyroidism type: acquired Qualified Code(s): E03.9 - Hypothyroidism, unspecified (10) Macrocytic anemia: Status: Chronic (11) Esophageal hiatal hernia: Status: Chronic (12) Gastric bezoar: Status: Acute Reason for Visit Reason for Visit: Headache, not feeling well Brief History: As per Dr. Estefani Mccall Serjio is a 62 year old female who presented to the emergency room with chief complaint of headache and not feeling well.? She was just discharged on August 05 after an admission with anasarca of felt related to severe hypoalbuminemia related to poor oral intake and nutritional status and what was described as CHF exacerbation.? Chest x-ray at the time showed right-sided pleural effusion and areas of atelectasis in the right middle and lower lobes.? She received diuresis and was 7.8 L negative at discharge.? She says she was doing okay after discharge until yesterday.? She describes having some loose stools, headache, general malaise.? Her breathing has actually been okay.? She has felt nauseated and had some vomiting.? She says it is not unusual for her to vomit after eating.? She has had issues with swallowing for some time with weight loss of 70 pounds or so in the last year.? She had a gastric bypass, Aviva-en-Y procedure, years ago.? She actually underwent upper endoscopy on July [address] Ortiz because of this.? Esophagus was examined with no abnormalities.? The gastroesophageal junction was located 35 cm from the incisors.? In the gastric cardia evidence of prior gastric bypass with a 3 cm pouch was noted as were healed marginal ulcers at 12 and 9:00.? Gastrojejunostomy diameter was noted to be 20 mm.? No evidence of gastric fistula, strictures or pouchitis.? Recommendations were for frequent small meals head of bed elevation antireflux medications and diet and avoidance of food and medicines that might increase reflux.? Echocardiogram done during the last hospital stay showed ejection fraction of 65% with grade 1 diastolic dysfunction.? She had myocardial perfusion imaging in December of this year that was normal though with transient ischemic dilatation index of 1.2 that may represent hypertensive response or subendocardial ischemia in the right clinical setting.? Review of external medication reconciliation shows that Lasix appears to have been added to her medication regimen late July for edema.? Mrs. Bassett has chronic orthostatic hypotension and follows with Dr. Pack.? She follows with Dr. Dovre for chronic migraines which occur daily.? She is on Botox therapy for these with last dose administered on July 12.? She has had increasing falls lately.? Work-up in the emergency room today included CT of the head that showed no evidence of acute intracranial process though mild small vessel changes and parenchymal volume loss were noted.? Mrs. Bassett also had a CT of the chest abdomen and pelvis revealing small left greater than right pleural effusions with compressive atelectasis at the lung bases along with a few patchy hazy groundglass opacities in both lower lobes and left greater than right upper lobes felt to be likely infectious or inflammatory.? Also notated was no focal pneumonia.? A large esophageal hiatal hernia was again noted with fluid distended thoracic esophagus containing air-fluid level.? Again noted is what is diffuse body wall anasarca and some pelvic ascites in addition to postoperative changes from prior surgeries.? Laboratory studies revealed white count of 12,000, elevated lactic acid, procalcitonin, some elevation in bilirubin, alkaline phosphatase and to a much lesser degree AST, troponin elevation without a significant delta and a proBNP of 807.? ED requested admission for pneumonia and CHF.? Patient's primary complaint is that of a headache.? At the time of my evaluation she has recently vomited oral intake from food she consumed in the emergency room.? Food particles are large and not well chewed which she attributes to not having her teeth.? She said its not unusual for her to have a similar amount of vomitus.? She denies any chest pain.? She has various sores in different stages of healing but the only one that is of acute concern to her is on her left medial fontana.? She does not recall how she got it.? She has had some tachycardia in the emergency room today as high as 114 on presentation.? Blood pressures though have been stable as have oxygen saturations thus far.? History is obtained from Mrs. Bassett though limited in consistent details.? Previous records have also been reviewed. Hospital Course Hospital Course Patient has a prolonged hospital course for 20 days total. Initially when she presented to the hospital she came in for nausea and vomiting. It was mostly undigested food particles. Patient did have a history of esophageal hiatal hernia. Patient does have history of gastric bypass 20 years ago.. Patient is severely malnourished with chronic history of nausea vomiting. She was having extreme nausea vomiting even with liquids. NG tube was placed. Upper GI series was done which was consistent with possible pseudoobstruction of gastric outlet due to food particles stuck leading to dilation of esophagus above the diaphragm which looks like a hiatal hernia. Patient continued to aspirate and went into respiratory failure and was eventually intubated. After that she was seen by general surgery and underwent endoscopy in which they were able to push the gastric bezoar further. She was extubated on August 14, 2022. Post extubation she was requiring up to 7 L and desaturated with physical therapy therefore was placed on heated high flow and was doing a lot better with it. fed her a glass of water and something else as well. She continued to have aspiration pneumonia. Also has severe protein calorie malnutrition. NG tube accidentally came out. PICC line was placed and therefore TPN was started. An NG tube was not placed as she was high risk for perforation due to history of gastric bypass surgery. Patient also has a baseline history of orthostatic hypotension and was being treated with midodrine and Northera was also prescribed as an outpatient but she could not take it since she was still awaiting prior authorization. August 15 patient was reintubated for respiratory failure. She was 12 L positive. She was kept on the ventilator and eventually diuresed slowly. TPN was given in the meantime. Eventually NG tube with fluoroscopic guidance was inserted and then CT abdomen pelvis was done with oral contrast to rule out any perforations or obstruction. That was ruled out. Feeds were started for her. Eventually she was able to get extubated and doing fairly fine. Extubated to 2 L nasal cannula. We were in arrangement with discharge planning and initial plan was to discharge patient [facility]hab but patient has been very noncompliant with physical therapy diet and medications during hospital stay. Given the noncompliance it is difficult for her to go to a [facility] and also the patient refused to go to rehab multiple times. I discussed with her Saturday and Saturday and she said there was no way she will go to a [facility]. She knew where she was she knew what was going on and was alert oriented x3. I again had a discussion with patient's today on day of discharge who stated that he would not force her to go to a [facility] and would like to take her home. She was also seen by Dr. Law who recommended to put in a mental health referral for outpatient for follow-up which I did. Patient's medications were adjusted during hospital stay. Please see medication reconciliation at discharge. Patient's potassium has been chronically low. She was eventually placed on potassium 40 oral twice daily which has kept her potassium level stable. However last 2 days she required an extra 40 on top of the regular 40 twice daily she has been taking. Patient was discharged with prescription to recheck BMP in 3 days and again in 1 week. She was given follow-up with general surgery Dr. Ortiz outpatient, mental health referral, home health and her primary care doctor. I believe this patient will do poorly. She requires assistance with all her activities. She also does not have any motivation to do anything or work with physical therapy. She refused to get out of bed. Her stated that he has a power wheelchair and he also has a power lift chair and he also has an hospital bed from his previous grandmother being sick. He said he will be able to get by. I did offer to the again on the day of discharge that we could possibly look into rehab options if they are still interested but he declined at this time. Home oxygen evaluation was ordered for the patient and nursing was given strict instructions to check home O2 eval prior to patient's discharge in form of a signed order and note on discharge order itself. Unfortunately before patient's nurse could go over discharge instructions with the patient patient was wheeled down to the car and taken home. Nurses have attempted to talk to the multiple times over the phone who has stated that he also came back to the hospital to the medical office building to get the home oxygen evaluation completed however he was unsure where to go and apparently went back home. As of now patient is still in the car. stated he was having trouble getting her out of the car once they were home. I asked nursing staff to call the again and offere to them that he could always bring her back to the hospital to look into rehab options if they are still interested. However nursing has been unable to get a hold of the at this time. Patient left without discharge instructions and without oxygen. Oxygen Evaluation was not completed by nursing staff and patient was taken off the floor by nurse aide and to the car. Patient carries a high risk of readmission masses given her severe protein calorie malnutrition, lack of motivation and decreased oral intake. Physical Exam Narrative: Constitutional: AAOx3, chronically ill-appearing, physical deconditioning, has again taken off her nasal cannula HEENT: Bitemporal wasting, extraocular movements intact, moist mucous membranes Respiratory: clear to auscultation b/l, no wheezes no rhonchi, no accessory muscle use, no acute distress. Cardiovascular: Regular rate and rhythm, no gallops or rubs Abdomen: Soft, nontender, doughy texture, positive bowel sounds Extremities: Trace edema bilaterally in lower extremities, muscle wasting noted Skin: Scattered sores and bruises in different stages of healing with iatrogenic changes noted to the upper extremities in particular from blood draws Neuro: Speech clear, face symmetric, moves all extremities, no involuntary movements noted Psych: Flat affect Urinary Catheter Management: Dodd: Cath Placed During This Visit: yes, but has since been removed by the nurse Reason for Continuing Indwelling Catheter: Hospice/Comfort/Palliative Care Urinary Catheter Date of Insertion: 08/11/22 Urinary Catheter Time of Insertion: 00:20 Date Urinary Catheter Removed: 08/24/22 Time Urinary Catheter Discontinued: 05:00 Discharge Data Studies Completed and Pending Completed Studies During Hospitalization Category Date Time Status CT abdomen pelvis wo con [id number] Urgent Cat Scan 08/17/22 12:[address] chest abd pel w con* Stat Cat Scan 08/08/22 14:[address] head wo con* [id number] Stat Cat Scan 08/08/22 13:35 Completed CXRP [XR chest 1V portable [id number]] Stat Exams 08/11/22 10:38 Completed CXRP [XR chest 1V portable [id number]] Urgent Exams 08/10/22 11:47 Completed CXRP [XR chest 1V portable [id number]] Urgent Exams 08/10/22 12:42 Completed [place] upper GI series [id number] Routine Exams 08/10/22 13:59 Completed IR fluoro for NG placemt [id number] Routine Exams 08/17/22 Completed XR KUB portable [id number] Routine Exams 08/11/22 12:05 Completed XR chest 1V portable 76186 Q48H Exams 08/13/22 06:00 Completed XR chest 1V portable 56658 Q48H Exams 08/15/22 06:00 Completed XR chest 1V portable 31883 Q48H Exams 08/17/22 06:00 Completed XR chest 1V portable [id number] Routine Exams 08/15/22 14:10 Completed XR chest 1V portable 52171 Routine Exams 08/16/22 08:32 Completed XR chest 1V portable [id number] Routine Exams 08/19/22 08:26 Completed XR chest 1V portable [id number] Routine Exams 08/20/22 06:39 Completed XR chest 1V portable [id number] Routine Exams 08/21/22 07:58 Completed XR chest 1V portable [id number] Stat Exams 08/08/22 13:35 Completed XR chest 1V portable [id number] Stat Exams 08/10/22 19:15 Completed XR chest 1V portable [id number] Stat Exams 08/15/22 11:28 Completed XR chest 1V portable [id number] Stat Exams 08/15/22 15:53 Completed Pending at discharge Category Date Time Status BMP [Basic Metabolic Panel] Stat Lab 08/28/22 12:40 Ordered Vitamin B1 (Thiamine),Blood Routine Lab 08/22/22 07:40 Received Radiology Impressions Head CT 08/08/22 13:35 IMPRESSION: 1. No evidence of intracranial hemorrhage or mass effect. 2. Mild small vessel changes. Mild parenchymal volume loss. 3. No acute intracranial findings. Chest/Abdomen/Pelvis CT 08/08/22 14:46 IMPRESSION: 1. Small LEFT greater than RIGHT pleural effusions with compressive atelectasis in the lung bases. 2. A few patchy hazy ground glass infiltrates in both lower lobes and LEFT greater than RIGHT upper lobes likely infectious or inflammatory. No focal pneumonia. 3. Postoperative changes GE junction with moderate to large esophageal hiatal hernia. Fluid distended thoracic esophagus with air-fluid level. Hiatal hernia appears progressed compared to March 30, 2022 some of which may be due to fluid distention. 4. Diffuse fatty infiltration liver. Hepatomegaly. 5. Diffuse body wall anasarca. 6. Small volume pelvic ascites. 7. Air-fluid level in the bladder likely due to recent instrumentation. 8. No evidence of high-grade small or large bowel obstruction. 9. Chronic compression deformities L1 and L4 unchanged since March 30, 2022. 10. Prior gastric bypass, cholecystectomy, hysterectomy. Upper GI Series 08/10/22 13:59 IMPRESSION: 1. Large hiatal hernia and status post gastric bypass. 2. Favor this large hiatal hernia contains food products, bezoar-like material. 3. Liquid contrast did exit this large hernia but there may be a partial outlet obstruction. None of the food products did exit during this examination. KUB X-Ray 08/11/22 12:05 IMPRESSION: 1. Multiple dilated loops of small bowel in the left upper quadrant. There is gas and stool throughout the majority of the colon. This could reflect small-bowel obstruction or ileus. 2. Bibasilar opacities and bilateral pleural effusions, left greater than right. ADDENDUM: 08/11/22 1414 Findings discussed with ROBIN GASTON at 08/11/2022 2:12 PM CDT. Gastrostomy Tube Placement 08/17/22 00:00 IMPRESSION: Uncomplicated placement of 12 Urdu nasogastric tube through the gastric pouch into the jejunal portion of the gastrojejunal anastomosis. Abdomen/Pelvis CT 08/17/22 12:57 IMPRESSION: Complex gastric bypass surgery incompletely defined. There is mild dilatation of small bowel as well as normal caliber small bowel. From the tip of the intubation tube distally there is no obstruction to flow of contrast with opacification of colon and rectum. Chest X-Ray 08/21/22 07:58 IMPRESSION: Improving bilateral pulmonary infiltrates. Laboratory Results WBC 9.6 10^3/uL (4.0-10.0) 08/27/22 04:10 RBC 2.46 10^6/uL (4.1-5.3) L 08/27/22 04:10 Hgb 8.4 g/dL (11.5-15.3) L 08/27/22 04:10 Hct 27.9 % (37.0-47.0) L 08/27/22 04:10 MCV 113.4 fl (81-99) H 08/27/22 04:10 MCH 34.1 pg (28.0-34.0) H 08/27/22 04:10 MCHC 30.1 g/dL (30.0-36.0) 08/27/22 04:10 RDW 18.6 % (12.1-15.1) H 08/27/22 04:10 Plt Count 401 10^3/cmm (130-400) H 08/27/22 04:10 MPV 11.0 fL (7.4-10.4) H 08/27/22 04:10 Neut % (Auto) 62.4 % 08/27/22 04:10 Lymph % (Auto) 23.8 % 08/27/22 04:10 Wake % (Auto) 12.4 % 08/27/22 04:10 Eos % (Auto) 0.1 % 08/27/22 04:10 Baso % (Auto) 0.4 % 08/27/22 04:10 Neut # (Auto) 5.95 10^3/uL (1.8-7.7) 08/27/22 04:10 Lymph # (Auto) 2.3 10^3/uL (0.8-4.8) 08/27/22 04:10 Wake # (Auto) 1.2 10^3/uL (0.2-0.9) H 08/27/22 04:10 Eos # (Auto) 0.0 10^3/uL (0.0-0.8) 08/27/22 04:10 Baso # (Auto) 0.0 10^3/uL (0.0-0.1) 08/27/22 04:10 Nucleated RBC % (auto) 0 % 08/27/22 04:10 Total Counted 100 (0-100) 08/19/22 04:44 Atypical Lymphs % 0.0 % (0-5) 08/19/22 04:44 Absolute Neutrophils 6.4 10^3/cmm (1.4-6.5) 08/19/22 04:44 Segmented Neutrophils 58 % 08/19/22 04:44 Abs Segm Neuts (Man) 5.9 10/cmm (1.6-7.1) 08/19/22 04:44 Band Neutrophils 5.0 % 08/19/22 04:44 Abs Band Neuts (Man) 0.5 10^3/cmm (0.0-1.2) 08/19/22 04:44 Absolute Lymphocytes 2.8 10^3/cmm (1.2-3.4) 08/19/22 04:44 Lymphocytes (Manual) 28 % 08/19/22 04:44 Monocytes (Manual) 7.0 % 08/19/22 04:44 Absolute Monocytes 0.7 10^3/cmm (0.1-0.6) H 08/19/22 04:44 Eosinophils (Manual) 0 % 08/19/22 04:44 Absolute Eosinophils 0.0 10^3/cmm (0.0-0.7) 08/19/22 04:44 Basophils (Manual) 0.0 % 08/19/22 04:44 Absolute Basophils 0.0 10^3/cmm (0.0-0.2) 08/19/22 04:44 Metamyelocytes 2.0 % 08/19/22 04:44 Nucleated RBCs # 0.0 /100WBC 08/27/22 04:10 Toxic Vacuolation 1+ H 08/16/22 02:19 Platelet Estimate Normal (Normal) 08/19/22 04:44 Polychromasia 1+ H 08/16/22 02:19 Anisocytosis 2+ H 08/16/22 02:19 Macrocytosis 1+ H 08/19/22 04:44 D-Dimer 0.75 ug/mIFEU (0-0.59) H 08/10/22 04:16 Specimen Type Arterial 08/21/22 09:03 Sample Site Brachial, left 08/21/22 09:03 ABG pH 7.57 (7.35-7.45) H* 08/21/22 09:03 ABG pCO2 35.9 mmHg (35-45) 08/21/22 09:03 ABG pO2 93.2 mmHg (80.0-100.0) 08/21/22 09:03 ABG HCO3 32.7 mmol/L (22-26) H 08/21/22 09:03 ABG O2 Saturation 95.9 08/21/22 09:03 ABG Base Excess 10.0 mmol/L (-2.0-2.0) H 08/21/22 09:03 Oliver Test Pos 08/21/22 09:03 A-a O2 Gradient 9.8 mmHg (5-10) 08/21/22 09:03 Hematocrit 27.3 % (37-47) L 08/21/22 09:03 Hgb O2 Saturation 95.0 % (95-100) 08/21/22 09:03 Carboxyhemoglobin < 0.0 %THgb (0.4-20.1) L 08/21/22 09:03 Methemoglobin 1.0 % (0.4-1.5) 08/21/22 09:03 Total Hemoglobin 8.9 g/dL (12-16) L 08/21/22 09:03 Sodium 137.0 mmol/L (131-143) 08/21/22 09:03 Potassium 3.5 mmol/L (3.5-5.0) 08/21/22 09:03 Glucose 117.0 mg/dL (70-115) H 08/21/22 09:03 Ionized Calcium 1.2 mmol/L (1.1-1.4) 08/21/22 09:03 O2 Delivery Device Vent 08/21/22 09:03 O2 Liters/Min 55.0 % 08/15/22 13:50 FiO2 30.0 % 08/21/22 09:03 Tidal Volume 0.35 08/19/22 17:31 PEEP 5.0 cmH20 08/21/22 09:03 Classified Copy Control Clerk ID Cak 08/21/22 09:03 Sodium 145 mmol/L (136-145) 08/27/22 08:12 Potassium 2.9 mmol/L (3.5-5.1) L 08/27/22 04:10 Chloride 118 mmol/L (98-107) H 08/27/22 04:10 Carbon Dioxide 22 mmol/L (22-29) 08/27/22 04:10 Anion Gap 12.9 (5-19) 08/27/22 04:10 BUN 4 mg/dL (8-23) L 08/27/22 04:10 Creatinine 0.3 mg/dL (0.5-0.9) L 08/27/22 04:10 GFR Calculation 225.4 mL/min (90-130) H 08/27/22 04:10 Glucose 103 mg/dL (65-115) 08/27/22 04:10 POC Glucose 95 mg/dL (70-110) 08/28/22 11:48 Estimat Average Glucose 59 08/10/22 04:16 Hemoglobin A1c 3.7 % (4.0-6.0) L 08/10/22 04:16 Calculated Osmolality 307 mOsm/kg (285-295) H 08/27/22 04:10 Lactic Acid 2.6 mmol/L (0.5-2.2) H 08/08/22 20:25 Lactate 1.4 mmol/L (0.5-2.2) 08/09/22 05:05 Calcium 7.9 mg/dL (8.5-10.5) L 08/27/22 04:10 Phosphorus 3.2 mg/dL (2.5-4.5) 08/27/22 04:10 Magnesium 2.8 mg/dL (1.7-2.3) H 08/27/22 04:10 Iron 31 ug/dL (37-145) L 08/22/22 02:51 TIBC 76 mcg/dl 08/22/22 02:51 % Saturation 40.7 % (20-50) 08/22/22 02:51 Unsat Iron Binding 45 ug/dL (112-347) L 08/22/22 02:51 Total Bilirubin 0.7 mg/dL (0.15-1.2) 08/27/22 04:10 AST 31 U/L (0-32) 08/27/22 04:10 ALT 21 U/L (0-33) 08/27/22 04:10 Alkaline Phosphatase 113 U/L (35-105) H 08/27/22 04:10 Troponin T Gen 5 ng/L 28 ng/L (0-10) H 08/10/22 04:16 Troponin T Baseline 25 ng/L (0-10) H 08/08/22 13:48 Troponin T 120 Minute 24.05 ng/L (0-10) H 08/08/22 15:33 Delta Troponin T -0.95 ABS# (0-10) L 08/08/22 15:33 Troponin T Hi Sens 6Hr 25.69 ng/L (0-10) H 08/09/22 05:05 Troponin T Hi Sens 6Hr Delta 0.69 ng/L (0-12) 08/09/22 05:05 C-Reactive Protein 9.4 mg/L (0.0-4.9) H 08/08/22 13:48 NT-Pro-B Natriuret Pep 807 pg/mL (0-125) H 08/08/22 13:48 Total Protein 4.7 g/dL (6.6-8.7) L 08/27/22 04:10 Albumin 2.7 g/dL (3.5-5.2) L 08/27/22 04:10 Globulin 2.0 g/dL (1.3-4.6) 08/27/22 04:10 Triglycerides 109 mg/dL (0-150) 08/10/22 04:16 Cholesterol 66 mg/dL (0-200) 08/10/22 04:16 LDL Cholesterol, Calc 34 mg/dL (50-129) L 08/10/22 04:16 Total VLDL Cholesterol 22 mg/dL (0-30) 08/10/22 04:16 HDL Cholesterol 10 mg/dL (60-100) L 08/10/22 04:16 Cholesterol/HDL Ratio 6.60 mg/dL (0.0-4.40) H 08/10/22 04:16 Vitamin B12 > 2000 pg/mL (232-1245) H 08/22/22 07:40 Procalcitonin 2.36 ng/mL (0-0.5) H 08/15/22 21:19 TSH 0.49 uIU/mL (0.27-4.20) 08/08/22 13:48 Random Cortisol 25.42 ug/dL (2.47-19.5) H 08/11/22 03:45 Urine Color Yellow (Yellow) 08/08/22 17:23 Urine Appearance Hazy (CLEAR) A 08/08/22 17:23 Urine pH 6 (5-7) 08/08/22 17:23 Ur Specific [place] 1.000 (1.005-1.030) L 08/08/22 17:23 Urine Protein Neg (Negative) 08/08/22 17:23 Urine Glucose (UA) Norm (Normal) 08/08/22 17:23 Urine Ketones Negative (Negative) 08/08/22 17:23 Urine Blood Neg (Negative) 08/08/22 17:23 Urine Nitrate Negative (Negative) 08/08/22 17:23 Urine Bilirubin Neg (Negative) 08/08/22 17:23 Urine Urobilinogen 1 mg/dL (Negative) H 08/08/22 17:23 Ur Leukocyte Esterase 1+ (Negative) H 08/08/22 17:23 Urine RBC 0-4 /hpf (0-2) H 08/08/22 17:23 Urine WBC 5-10 /hpf (0-5) H 08/08/22 17:23 Ur Squamous Epith Cells 0-4 /hpf (0-5) H 08/08/22 17:23 Amorphous Sediment Not Reportable 08/08/22 17:23 Urine Bacteria 4+ /hpf (NONE) H 08/08/22 17:23 RSV Nasal Swab Not detected (Not Detected) 08/08/22 17:27 RSV Nasal Swab Int Cntl Not detected (Not Detected) 08/08/22 17:27 Bronch Specimen Source Right lower lobe 08/16/22 12:10 Bronchial Fluid Color Colorless 08/16/22 12:10 Bronchial Fluid Appearance Clear (CLEAR) 08/16/22 12:10 Bronchial Fluid WBC 940 /uL 08/16/22 12:10 Bronchial Fluid RBC 1 10^3/uL 08/16/22 12:10 Bronch Cells Counted 200 08/16/22 12:10 Bronchial Neutrophils 178.00 % (0.9-2.3) H 08/16/22 12:10 Bronchial Lymphocytes 20.00 % (10.71-12.91) H 08/16/22 12:10 Bronchial Diff Comment Yes 08/16/22 12:10 Vancomycin Trough 25.3 ug/mL (10-15) H* 08/21/22 20:53 Adenovirus (PCR) Not detected (Not Detected) 08/08/22 17:27 Coronavirus 229E (PCR) Not detected (NOT DETECT) 08/14/22 09:06 Human Metapneumovir PCR Not detected (Not Detected) 08/08/22 17:27 Influenza A (RT-PCR) Not detected (Not Detected) 08/08/22 17:27 Influenza A (H1) PCR Not detected (Not Detected) 08/08/22 17:27 Influenza A (H3) PCR Not detected (Not Detected) 08/08/22 17:27 Influenza B (RT-PCR) Not detected (Not Detected) 08/08/22 17:27 Parainfluenzae Type 1 Not detected (Not Detected) 08/08/22 17:27 Parainfluenzae Type 2 Not detected (Not Detected) 08/08/22 17:27 Parainfluenzae Type 3 Not detected (Not Detected) 08/08/22 17:27 RSV Ab Comment see note 08/08/22 17:27 Rhinovirus (PCR) Not detected (Not Detected) 08/08/22 17:27 SARS-CoV-2 (PCR) Not detected (NOT DETECT) 08/14/22 09:06 SARS-CoV-2 Ag (Rapid) Negative (Negative) 08/08/22 20:47 Blood Type A Positive 08/12/22 09:10 Rho(D) Type Positive 08/12/22 09:10 Antibody Screen Negative 08/12/22 09:10 Crossmatch See Detail 08/12/22 09:10 Vitals Last Vital Signs Temp 99.3 F 08/28/22 12:00 Pulse 101 H 08/28/22 12:00 Resp 17 08/28/22 12:00 BP 118/76 08/28/22 12:00 Pulse Ox 97 08/28/22 12:00 O2 Del Method 08/28/22 09:00 O2 Flow Rate 1.5 08/28/22 09:00 FiO2 30 08/21/22 09:42 Discharge Plan Discharge Patient Disposition: Home Health Service Condition: Stable Prescriptions: New nystatin 100,000 unit/mL Suspension 100,000 unit PO QID 7 Days Qty: 28 0RF sucralfate 100 mg/mL Suspension 1 g PO Q6H 14 Days Qty: 560 0RF potassium chloride 20 mEq/15 mL Liquid 40 meq PO BID 14 Days Qty: 840 0RF zonisamide 100 mg Capsule 100 mg PO DAILY 30 Days Qty: 30 0RF hydrocortisone 10 mg Tablet 5 mg PO BID 30 Days Qty: 30 0RF Vitamin B-1 (mononitrate) 100 mg Tablet 100 mg PO DAILY 30 Days Qty: 30 0RF Continued calcium carbonate [Calcium 600] 600 mg calcium (1,500 mg) tablet 600 mg PO DAILY cholecalciferol (vitamin D3) 125 mcg (5,000 unit) capsule 125 mcg PO DAILY alendronate [Fosamax] 70 mg tablet 70 mg PO Q7D Rx Instructions: On Mondays droxidopa [Northera] 100 mg capsule 100 mg PO TID Qty: 90 3RF Rx Instructions: give consistently with OR without food, upon rising, at midday, late PM/at least 3hrs before bedtime buspirone 30 mg tablet 30 mg PO BID Qty: 120 11RF midodrine 10 mg tablet 10 mg PO TID Qty: 90 6RF Rx Instructions: do not give last dose of day after 6PM or within 4 hrs of bedtime duloxetine [Cymbalta] 60 mg capsule,delayed release(DR/EC) 60 mg PO DAILY Qty: 30 5RF pantoprazole [Protonix] 40 mg tablet,delayed release (DR/EC) 40 mg PO QAM 30 Days Qty: 30 0RF Vitamin B-12 1,000 mcg Tablet 1,000 mcg PO DAILY sucralfate 1 gram Tablet 1 g PO BID levothyroxine 125 mcg tablet 125 mcg PO QAM mirtazapine 15 mg tablet 15 mg PO BEDTIME ondansetron 4 mg tablet,disintegrating 4 mg PO Q8H PRN (Reason: nausea and vomiting) 5 Days Qty: 14 0RF Held rizatriptan [Maxalt] 10 mg tablet 10 mg PO Q2H PRN (Reason: migraine headache) Qty: 9 3RF Hold Instructions: see pcp before resuming Rx Instructions: needs appointment for refills Discontinued atorvastatin 10 mg tablet 10 mg PO DAILY All Day Allergy (cetirizine) 10 mg capsule 10 mg PO DAILY PRN (Reason: allergy symptoms) gabapentin 800 mg tablet 800 mg PO TID hydrocodone-acetaminophen 7.5-325 mg tablet 1 tab PO Q6H PRN (Reason: Pain) furosemide [Lasix] 40 mg Tablet 40 mg PO BID Hold Instructions: Resume on 08/15/22. zonisamide 25 mg Capsule 50 mg PO BEDTIME potassium chloride 20 mEq tablet extended release 40 meq PO BID Discharge Orders: Discharge Order (Routine); Ordered 08/28/22 Ordered By: Rosalie Jones Other Ambulatory Orders: Basic Metabolic Panel (Routine) Timeframe: 3 Days Facility: [facility] - Location: Lab - Main Lab Ordered By: Rosalie Jones Basic Metabolic Panel (Routine) Timeframe: 1 Week Facility: [facility] - Location: Lab - Main Lab Ordered By: Rosalie Jones DME: Miscellaneous (Order) Location: None Selected Ordered By: Robin Gaston Referrals: [facility] [Other] [facility] [Outside] [facility], [Staff Physician] - (PLEASE CALL FOR [facility]WITH [facility]) Daniele Ortiz MD [Physician] - 09/06/22 1:30 pm (Return to bariatric surgery office in 10 days after discharge) Steve Cuellar MD [Primary Care Provider] - 09/04/22 11:00 am Discharge Diet: Advance as tolerated and GI Soft Discharge Activity: Increase activity as tolerated and Oxygen as instructed Patient Instructions: Sucralfate (By mouth), Potassium Chloride (By mouth), Zonisamide (By mouth), Hydrocortisone (By mouth), Hypokalemia (GEN), GI Discharge Instructions, Opioid Safety Activity Restrictions/Additional Instructions: Please follow-up with primary care doctor within 1 to 3 days of discharge. Please continue to monitor for worsening of symptoms. If symptoms worsen or new symptoms develop please present back to the ER. Please monitor your blood pressure twice a day at home. Please watch your diet and take frequent small meals instead of 1 large meal at 1 sitting. Has follow-up with Dr. Ortiz as an outpatient within 10 days of discharge. Discharge Attestations Time Spent in Discharge Care*: greater than 30 min Quality Metrics Clinical Quality Measures [ No reported AMI, CVA or VTE this stay] Coding Level of Care Code Acute Chg FW DC note Diagnoses Respiratory failure with hypoxia J96.91 Nausea and vomiting R11.2 Pneumonia J18.9 Pneumonia type: aspiration pneumonia Severe protein-energy malnutrition E43 Hypernatremia E87.0 Status post gastric bypass for obesity Z98.84 Grade I diastolic dysfunction I51.89 Orthostatic hypotension I95.1 Hypothyroidism E03.9 Hypothyroidism type: acquired Macrocytic anemia D53.9 Esophageal hiatal hernia K44.9 Gastric bezoar T18.2XXA
[2022-08-28 14:06] LABS: Blood Urea Nitrogen 6 mg/dL (8-23); Carbon Dioxide 19 mmol/L (22-29); Chloride 119 mmol/L (98-107); Glomerular Filtration Rate 161.7 mL/min (90-130); Glucose 100 mg/dL (65-115); Osmolality Calculated 304 mOsm/kg (285-295); Sodium 148 mmol/L (136-145)
[2022-08-28 14:07] LABS: Anion Gap 14.3 (5-19); Potassium 4.3 mmol/L (3.5-5.1)
--- NOTE | 2022-08-28 14:58 | PC.NURSE ---
Aid took patient out to private vehicle with son to discharge not realizing this nurse had not gone over discharge and Home O2 eval had not been complete. Dr. Jones notified and will call for patient to return for discharge paperwork and home O2 eval.
--- NOTE | 2022-08-28 18:36 | PC.NURSE ---
Notified Dr. Jones of patient not coming back for home O2 eval. Told Doctor Jones community relations advisor called patient as well to come back. Edward Bassett stated patient was still in car. He could not get her out. Doctor ask for this nurse to try to call one more time and offer to come back through the ER for possible rehab placement since patient is non-compliant for wearing oxygen while here. This nurse tried to call patient calling both numbers twice with no answer or voicemail set up on cell phone.
--- NOTE | 2022-08-28 18:42 | PC.NURSE ---
Patient has been non-compliant wearing oxygen during my shift.
[2023-08-27 17:37] LABS: Vitamin B1 (Thiamine),Blood 16
== END 2022-08-28 18:47 | disposition home health service (06) | DRG 207 ==
LOC: ER 17:12 → MEDSURG 20:19 → ICU 08-10 18:57 → MEDSURG 08-23 11:30
PROVIDERS: Family Medicine; Hospitalist; Internal Medicine; Internal Medicine Pulmonary Disease; Student in an Organized Health Care Education/Training Program; Surgery; Admitting Provider Internal Medicine; Emergency Provider Emergency Medicine; PCP Family Medicine; Visit Provider Internal Medicine
PROC: 0DJ08ZZ Inspection of Upper Intestinal Tract, Via Natural or Artificial Opening Endoscopic (ICD-10-PCS; CPT 43235; principal; 2022-08-11 09:00)
DX: J69.0 Pneumonitis due to inhalation of food and vomit (principal); E43 Unspecified severe protein-calorie malnutrition; J80 Acute respiratory distress syndrome; I50.31 Acute diastolic (congestive) heart failure; K31.1 Adult hypertrophic pyloric stenosis; N39.0 Urinary tract infection, site not specified; E51.2 Wernicke's encephalopathy; F23 Brief psychotic disorder; E87.0 Hyperosmolality and hypernatremia; Z98.84 Bariatric surgery status; G43.709 Chronic migraine without aura, not intractable, without status migrainosus; K44.9 Diaphragmatic hernia without obstruction or gangrene; F60.3 Borderline personality disorder; M54.16 Radiculopathy, lumbar region; F41.1 Generalized anxiety disorder; E78.5 Hyperlipidemia, unspecified; E03.9 Hypothyroidism, unspecified; F32.5 Major depressive disorder, single episode, in full remission; M81.0 Age-related osteoporosis without current pathological fracture; F43.12 Post-traumatic stress disorder, chronic; I95.1 Orthostatic hypotension; K31.4 Gastric diverticulum; R73.9 Hyperglycemia, unspecified; E87.6 Hypokalemia; R29.6 Repeated falls; G31.84 Mild cognitive impairment of uncertain or unknown etiology; B96.1 Klebsiella pneumoniae [K. pneumoniae] as the cause of diseases classified elsewhere; B96.20 Unspecified Escherichia coli [E. coli] as the cause of diseases classified elsewhere; Z68.25 Body mass index [BMI] 25.0-25.9, adult; K29.70 Gastritis, unspecified, without bleeding; E86.0 Dehydration; G89.29 Other chronic pain; D53.9 Nutritional anemia, unspecified
CPT/HCPCS: 31500; 31622; 36415; 36416; 36430; 36569; 36592; 36600; 43235; 43752; 51702; 70450; 71045; 71260; 74018; 74176; 74177; 74240; 76000; 80048; 80051; 80053; 80061; 80202; 80503; 81001; 82274; 82330; 82533; 82607; 82803; 82805; 82962; 83036; 83540; 83550; 83605; 83630; 83735; 83880; 84100; 84145; 84295; 84425; 84443; 84484; 85007; 85025; 85378; 86140; 86850; 86900; 86920; 87040; 87070; 87077; 87086; 87186; 87205; 87426; 87493; 87506; 87633; 87635; 87641; 89050; 92523; 92524; 92526; 92610; 93005; 94002; 94003; 94640; 94669; 94799; 96365; 96367; 96372; 97110; 97162; 97530; 99285; A4570; C1751; C1769; C9113; J0610; J0696; J0743; J1450; J1650; J1720; J1815; J1940; J1956; J2250; J2370; J2405; J2543; J2704; J3010; J3370; J3411; J3475; J3480; J3490; J7030; J7050; J7626; J7799; J8499; P9016; P9041; P9047; Q9963; Q9967

== ENCOUNTER → 2022-09-26 14:20 | Outpatient (BNVA) | payer MEDICARE, MEDICAID, SELFPAY ==
[2021-04-06 11:20] VITALS: BP 101/66; BMI 32.7
== END ==
PROVIDERS: PCP Family Medicine; Visit Provider Surgery
DX: Z98.84 Bariatric surgery status (principal)
CPT/HCPCS: 99213

== ENCOUNTER → 2022-12-07 08:55 | Outpatient (BNVA) | payer MEDICARE, MEDICAID, SELFPAY ==
[2021-04-06 11:20] VITALS: BP 101/66; BMI 32.7
== END ==
PROVIDERS: PCP Family Medicine; Visit Provider Internal Medicine Cardiovascular Disease
DX: I95.1 Orthostatic hypotension (principal); Z98.84 Bariatric surgery status; K28.9 Gastrojejunal ulcer, unspecified as acute or chronic, without hemorrhage or perforation; Z95.818 Presence of other cardiac implants and grafts
CPT/HCPCS: 93291; 99214; Q3014

== ENCOUNTER 2023-01-08 09:13 | Outpatient (CLI) | payer MEDICARE, MEDICAID, SELFPAY ==
[2021-04-06 11:20] VITALS: BP 101/66; BMI 32.7
--- NOTE | 2023-01-08 09:28 | USCV_ITS ---
Bassett Alvabetty Age: 62 Gender: F : 1960 Exam Date: 01/08/2023 10:46 Ordering Phys: Steve Cuellar MD Technologist: [place] [facility] [place] Indication: pad cold feet RIGHT LEFT Brachial 98.00 mmHg Brachial 74.00 mmHg Pressure (mmHg) Waveform Pressure (mmHg) Waveform 220.00 BODY CLEANER 220.00 220.00 DPA 108.00 0.00 Pre-Exercise Toe Pressure 0.00 FINDINGS Noncompressible vessels of the ankle bilaterally No Doppler flow signals in the toes bilaterally CONCLUSIONS Features of extensive arterial sclerosis Could not record any toe pressures, bilaterally Dr Dacia Guevara MD [facility] (Electronically Signed) Final Date: 09 January 2023 10:28 S
== END 2023-01-08 09:14 | disposition home or self-care (01) ==
PROVIDERS: PCP Family Medicine; Visit Provider Family Medicine
DX: I73.9 Peripheral vascular disease, unspecified (principal)
CPT/HCPCS: 93922

== ENCOUNTER → 2023-01-17 10:57 | Outpatient (BNVA) | payer MEDICARE, MEDICAID, SELFPAY ==
[2021-04-06 11:20] VITALS: BP 101/66; BMI 32.7
== END ==
PROVIDERS: PCP Family Medicine; Visit Provider Specialist
DX: G43.711 Chronic migraine without aura, intractable, with status migrainosus (principal); G44.89 Other headache syndrome; R11.0 Nausea
CPT/HCPCS: 64615; 99214; J0585